=== PATIENT | female | born 1935 | race Caucasian/White ===

== ENCOUNTER 2019-11-20 00:44 | Outpatient (CLI) | payer MEDICARE, SELFPAY ==
[2019-11-20 18:12] LABS: SARS-CoV-2 RNA PCR Negative
== END 2019-11-20 00:45 | disposition home or self-care (01) ==
LOC: ANHCOVIDDT 00:45
PROVIDERS: PCP Internal Medicine; Visit Provider Internal Medicine Gastroenterology
DX: Z20.828 Contact with and (suspected) exposure to other viral communicable diseases (principal); Z01.812 Encounter for preprocedural laboratory examination
CPT/HCPCS: 87635; C9803; U0003

== ENCOUNTER 2019-11-22 01:46 | Day surgery (SDC) | payer MEDICARE, SELFPAY ==
[2019-11-19 14:08] VITALS: BMI 31.8
[2019-11-22 07:42] VITALS: BP 128/92; PULSE 97; RESP 16; TEMP 36.3; O2SAT 100
--- NOTE | 2019-11-22 07:59 | P.HP_ITS ---
History of Present Illness History of Present Illness Consent: Risks, benefits, and alternatives have been discussed and questions answered. Patient agrees to proceed with procedure. Chief complaint: Neoplasm Screening Narrative: Nelia Peterson is a 84 year old W female referred for colonoscopy for evaluation of a change in bowel pattern. Patient states she has had a 3 month history of diarrhea. 3-4 loose stools per day usually postprandial. This started while she was in [place]. She denies any exposure to well water. 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 She has had occasional episode of hematochezia. She does have hemorrhoids. No weight loss. No fever chills or sweats. She states she had stool studies done and assumes these are negative since she has not hear anything. She was not treated with any antibiotics. Patient had a colonoscopy 15 years ago. [facility] Past Medical History Medical History (Updated 11/22/19 @ 08:01 by Lenin Billingsley MD) Dyslipidemia History of atrial fibrillation History of kidney stones History of pulmonary embolism Hypertension Surgical History Surgical History (Updated 11/22/19 @ 08:02 by Lenin Billingsley MD) H/O total hysterectomy with bilateral salpingo-oophorectomy (BSO) History of tonsillectomy and adenoidectomy Status post right knee replacement Meds Home Medications and Allergies Home Medications Medication Instructions Recorded Confirmed Type amlodipine 5 mg PO DAILY 11/19/19 11/22/19 History apixaban [Eliquis] 5 mg PO BID 11/19/19 11/22/19 History ascorbic acid (vitamin C) 250 mg PO BID 11/19/19 11/22/19 History bupropion HCl 150 mg PO BID 11/19/19 11/22/19 History cholecalciferol (vitamin D3) 50 mcg PO DAILY 11/19/19 11/22/19 History [Vitamin D3] levothyroxine 50 mcg PO DAILY 11/19/19 11/22/19 History losartan 100 mg PO DAILY 11/19/19 11/22/19 History metoprolol tartrate 25 mg PO BID 11/19/19 11/22/19 History pravastatin 80 mg PO DAILY 11/19/19 11/22/19 History suvorexant [Belsomra] 10 mg PO HS 11/19/19 11/22/19 History amiodarone 200 mg PO DAILY 11/22/19 11/22/19 History Allergies Allergy/AdvReac Type Severity Reaction Status Date / Time enoxaparin Allergy Severe Other Verified 11/22/19 07:46 heparin Allergy Severe Other Verified 11/22/19 07:46 codeine AdvReac Mild Nausea Verified 11/22/19 07:46 Vital Signs Vital Signs - 24 hr 11/22/19 07:42 Temperature 36.3 C L Pulse Rate 97 Respiratory Rate 16 Blood Pressure 128/92 H Pulse Oximetry 100 Exam Const: Orientation/consciousness: patient oriented x3 Resp: Auscultation: clear to auscultation bilaterally Cardio: Rate: regular rate Rhythm: regular rhythm Heart sounds: no murmurs GI: GI Palp: Yes Soft to palpation, No Tenderness to palpation present (GI), Yes No hepatosplenomegaly present and No Palpable mass present Auscultation: normal bowel sounds Neuro: General: patient oriented x3 and no focal motor deficits Extrem: General: no pedal edema Assessment and Plan Additional Plan colonoscopy for evaluation of chronic diarrhea
[2019-11-22] MEDS: LACTATED RINGERS 1,000 ML 150 ML IV CONT (08:06)
--- NOTE | 2019-11-22 08:14 | WPDANESEPPF ---
Anes - Initial Pre Proc Eval Procedure: Operation Date: 11/22/19 08:30 Proposed Procedures p Screening Colonoscopy - Lenin Billingsley MD Date/Time: 11/22/19 08:14 Surgeon: Lenin Billingsley MD Pre Op Diagnosis: Neoplasm Screening Patient Data Age: 84 Gender: F Height: 5 ft 4 in Weight: 80.1 kg Last Vital Signs Temp 97.3 F L 11/22/19 07:42 Pulse 97 11/22/19 07:42 Resp 16 11/22/19 07:42 BP 128/92 H 11/22/19 07:42 Pulse Ox 100 11/22/19 07:42 Allergies Allergy/AdvReac Type Severity Reaction Status Date / Time enoxaparin Allergy Severe Other Verified 11/22/19 07:46 heparin Allergy Severe Other Verified 11/22/19 07:46 codeine AdvReac Mild Nausea Verified 11/22/19 07:46 Home Medications Medication Instructions Recorded Confirmed Type amlodipine 5 mg PO DAILY 11/19/19 11/22/19 History apixaban [Eliquis] 5 mg PO BID 11/19/19 11/22/19 History ascorbic acid (vitamin C) 250 mg PO BID 11/19/19 11/22/19 History bupropion HCl 150 mg PO BID 11/19/19 11/22/19 History cholecalciferol (vitamin D3) 50 mcg PO DAILY 11/19/19 11/22/19 History [Vitamin D3] levothyroxine 50 mcg PO DAILY 11/19/19 11/22/19 History losartan 100 mg PO DAILY 11/19/19 11/22/19 History metoprolol tartrate 25 mg PO BID 11/19/19 11/22/19 History pravastatin 80 mg PO DAILY 11/19/19 11/22/19 History suvorexant [Belsomra] 10 mg PO HS 11/19/19 11/22/19 History amiodarone 200 mg PO DAILY 11/22/19 11/22/19 History Patient hx anesthesia problems: none Family hx anesthesia problems: none PMFSH Past Medical History Medical History (Updated 11/22/19 @ 08:01 by Lenin Billingsley MD) Dyslipidemia History of atrial fibrillation History of kidney stones History of pulmonary embolism Hypertension Surgical History Surgical History (Updated 11/22/19 @ 08:02 by Lenin Billingsley MD) H/O total hysterectomy with bilateral salpingo-oophorectomy (BSO) History of tonsillectomy and adenoidectomy Status post right knee replacement Anes - Eval Final PreProcedure Day of Procedure 11/22/19 08:14 Patient weight: normal Heart: regular rate and rhythm Lungs: clear to auscultation Airway: Mallampati scale class II Neurological: alert and oriented Last oral intake: >/= 8 hours ASA classification: III Emergent: no Anesthetic plan: proceed Anesthesia type and monitoring: general GIVS and standard monitoring Informed Consent: The patient's anesthetic plan and its attendant risks and benefits were discussed with the patient/family/POA. Questions were solicited and answers provided to the satisfaction of the patient/family/POA.
[2019-11-22 10:11] VITALS: BP 115/64; BP 123/88; PULSE 108; RESP 24; O2SAT 97
[2019-11-22 10:21] VITALS: BP 128/88; PULSE 104; RESP 24; O2SAT 95
[2019-11-22 10:31] VITALS: BP 130/66; PULSE 77; RESP 14; O2SAT 98
== END 2019-11-22 10:50 | disposition home or self-care (01) ==
PROVIDERS: PCP Internal Medicine; Visit Provider Internal Medicine Gastroenterology
PROC: 0DJD8ZZ Inspection of Lower Intestinal Tract, Via Natural or Artificial Opening Endoscopic (ICD-10-PCS; CPT 45378; principal; 2019-11-22 08:30)
DX: K52.9 Noninfective gastroenteritis and colitis, unspecified (principal); K63.5 Polyp of colon; K64.4 Residual hemorrhoidal skin tags; K64.8 Other hemorrhoids; I48.91 Unspecified atrial fibrillation; E78.5 Hyperlipidemia, unspecified; I10 Essential (primary) hypertension; Z86.711 Personal history of pulmonary embolism; Z79.01 Long term (current) use of anticoagulants
CPT/HCPCS: 45385; 45380; 88305; J2704; J7120

== ENCOUNTER 2020-01-18 16:41 | Emergency (ER) | payer MEDICARE, SELFPAY ==
[2020-01-18 16:55] VITALS: BP 125/76; PULSE 95; RESP 18; TEMP 36.7; O2SAT 99
--- NOTE | 2020-01-18 17:52 | ED.GENADULT ---
HPI - General Adult General Chief complaint: Extremity Injury, Upper Stated complaint: right arm redness and swelling Time Seen by Provider: 01/18/20 16:59 Source: patient and family Mode of arrival: ambulatory Limitations: no limitations History of Present Illness HPI narrative: Patient is a 84-year-old female who presents to emergency department for evaluation of wound to the dorsal surface of the right forearm patient bumped the arm 2 days ago developed a small skin tear and some swelling and notes that the swelling is gradually increased since noting aching pain worse with activity and movement denies fever chills radicular symptoms or paresthesias in his Related Data Home Medications Medication Instructions Recorded Confirmed Belsomra 10 mg PO HS 11/19/19 11/22/19 amlodipine 5 mg PO DAILY 11/19/19 11/22/19 ascorbic acid (vitamin C) 250 mg PO BID 11/19/19 11/22/19 bupropion HCl 150 mg PO BID 11/19/19 11/22/19 cholecalciferol (vitamin D3) 50 mcg PO DAILY 11/19/19 11/22/19 [Vitamin D3] levothyroxine 50 mcg PO DAILY 11/19/19 11/22/19 losartan 100 mg PO DAILY 11/19/19 11/22/19 metoprolol tartrate 25 mg PO BID 11/19/19 11/22/19 pravastatin 80 mg PO DAILY 11/19/19 11/22/19 amiodarone 200 mg PO DAILY 11/22/19 11/22/19 Allergies Allergy/AdvReac Type Severity Reaction Status Date / Time enoxaparin Allergy Severe Other Verified 01/18/20 16:58 heparin Allergy Severe Other Verified 01/18/20 16:58 codeine AdvReac Mild Nausea Verified 01/18/20 16:58 Review of Systems Review of Systems: All systems reviewed & are unremarkable except as noted in HPI and below PMFSH Past Medical History Medical History Dyslipidemia History of atrial fibrillation History of kidney stones History of pulmonary embolism Hypertension Surgical History Surgical History H/O total hysterectomy with bilateral salpingo-oophorectomy (BSO) History of tonsillectomy and adenoidectomy Status post right knee replacement Social History Social History Gender identity (if verbalized by the patient): Male Exam Narrative: Exam Narrative: GENERAL: Well-appearing, well-nourished, and in no acute distress. HEAD: Normocephalic, atraumatic. EYES: PERRLA and EOMI. ENT: Nares clear, no rhinorrhea or epistaxis. Mucous membranes moist. EXTREMITIES: Normal range of motion. No edema. Patient with swelling tenderness over the distal right forearm dorsal surface slight redness no warmth to touch no drainage small half centimeter skin tear no lymphangitic streaking no circumferential swelling SKIN: Warm, dry, no rash. NEURO: No focal deficits. Alert and oriented x3. Neurovascularly intact PSYCH: Normal mood and affect. Course Course Emergency Course: Patient in the room in no distress aware of case findings treatment plan and diagnosis agreeing to follow-up as directed Vital Signs Vital signs: Vital Signs Temperature 98.0 F 01/18/20 16:55 Pulse Rate 95 01/18/20 16:55 Respiratory Rate 18 01/18/20 16:55 Blood Pressure 125/76 01/18/20 16:55 Pulse Oximetry 99 01/18/20 16:55 Temperature 98.0 F 01/18/20 16:55 Pulse Rate 95 01/18/20 16:55 Respiratory Rate 18 01/18/20 16:55 Blood Pressure 125/76 01/18/20 16:55 Pulse Oximetry 99 01/18/20 16:55 Medical Decision Making MDM Narrative Medical decision making narrative: Patients injury or pain is consistent with musculoskeletal etiology. No signs of neurological or vascular compromise on exam. Compartments and tisues are soft without signs of compartment syndrome. Pain is felt appropriate for further evaluation on an outpatient basis. Will be treated with antibiotics Vital Signs Vital Signs: Vital Signs Temperature 98.0 F 01/18/20 16:55 Pulse Rate 95 01/18/20 16:55 Respiratory Rate 18 01/18/20 16:55
[2020-01-18] MEDS: TETANUS,DIPHTHERIA,AC PERTUSSIS ADULT (0.5 ML) BOOSTRIX IM (18:11)
[2020-01-18 19:16] VITALS: BP 139/84; PULSE 74; RESP 18; O2SAT 98
== END 2020-01-18 19:17 | disposition home or self-care (01) ==
LOC: ANHED 18:01
PROVIDERS: Emergency Provider Emergency Medicine; PCP Internal Medicine
DX: L03.113 Cellulitis of right upper limb (principal); E78.5 Hyperlipidemia, unspecified; I48.91 Unspecified atrial fibrillation; Z87.442 Personal history of urinary calculi; Z86.711 Personal history of pulmonary embolism; I10 Essential (primary) hypertension; Z96.651 Presence of right artificial knee joint; Z23 Encounter for immunization
CPT/HCPCS: 90471; 90715; 99283

== ENCOUNTER 2020-01-19 00:55 | Inpatient (IN) | payer MEDICARE, SELFPAY ==
[2020-01-19] VITALS (19 sets, daily range): BP systolic 91–148; BP diastolic 50–88; PULSE 75–121; RESP 16–18; TEMP 36.1–37.5; O2SAT 94–100
--- NOTE | ~2020-01-19 | CT_ITS ---
EXAMINATION: CT brain wo con DATE: 01/19/2020 02:23 INDICATION: Dizziness. Fall. TECHNIQUE: Computed tomography (CT) of the head was performed without intravenous contrast. The mA wa s adjusted according to patient size. Iterative reconstruction technique was employed. The dose-lengt h product was 605.33 mGy-cm. COMPARISON: Head CT 12/11/2014 FINDINGS: There are scattered areas of low attenuation in the cerebral white matter, which is within normal limits for the patient's age. There is no intracranial hemorrhage, acute infarction, or abnorm al intracranial mass lesion. 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 The enrique tricles are normal in size. There is mucosal thickening in right sphenoid sinus with thickening and s clerosis of the sinus barber, consistent with chronic sinusitis. The mastoid air cells are normal. The re are likely changes of ocular lens replacement surgeries. IMPRESSION: 1. Normal aging brain. 2. Chronic sinusitis. Reviewed, dictated and finalized at location A.
--- NOTE | 2020-01-19 01:10 | ED.FALL ---
HPI - Fall General Chief Complaint: Fall Stated Complaint: fall/ weakness/ nausea/ arm infection Time Seen by Provider: 01/19/20 01:09 Source: patient, family and EMS Mode of arrival: EMS Limitations: no limitations History of Present Illness HPI Narrative: Patient is an 84-year-old female with a history of hypertension, recently diagnosed with cellulitis of the right upper extremity seen today in her emergency department, who presents for evaluation of inability to tolerate oral intake, vomiting and weakness. Patient states that she has tried twice without success to swallow her oral antibiotic but has continued to vomit. She denies any abdominal pain or chest pain. She reports subjective fever, chills and feeling diffusely weak. She denies cough or shortness of breath. She denies any chest pain. Patient states it seems as if the right arm is aching more and swelling has worsened. Patient had been discharged home on oral Keflex, her tetanus has been updated in the ER with the previous visit. Her , patient has been so weak she has had difficulty standing. In fact, she tried to get up from bed and fell to the floor. Patient is denying any injury, states she did experience a skin tear to her left elbow but is denying any elbow pain. She denies head trauma or loss of consciousness. Patient's states he feels like she has been leaning over to the right. Patient is denying any weakness or numbness that is focal to the right side. Related Data Home Medications Medication Instructions Recorded Confirmed Belsomra 10 mg PO HS 11/19/19 11/22/19 amlodipine 5 mg PO DAILY 11/19/19 11/22/19 ascorbic acid (vitamin C) 250 mg PO BID 11/19/19 11/22/19 bupropion HCl 150 mg PO BID 11/19/19 11/22/19 cholecalciferol (vitamin D3) 50 mcg PO DAILY 11/19/19 11/22/19 [Vitamin D3] levothyroxine 50 mcg PO DAILY 11/19/19 11/22/19 losartan 100 mg PO DAILY 11/19/19 11/22/19 metoprolol tartrate 25 mg PO BID 11/19/19 11/22/19 pravastatin 80 mg PO DAILY 11/19/19 11/22/19 amiodarone 200 mg PO DAILY 11/22/19 11/22/19 Allergies Allergy/AdvReac Type Severity Reaction Status Date / Time enoxaparin Allergy Severe Other Verified 01/18/20 16:58 heparin Allergy Severe Other Verified 01/18/20 16:58 codeine AdvReac Mild Nausea Verified 01/18/20 16:58 Review of Systems Review of Systems: Narrative: CONSTITUTIONAL: Subjective fever and chills EYES: Denies visual changes, redness, or discharge. ENT: Denies rhinorrhea, congestion, sore throat, or otalgia. CARDIOVASCULAR: Denies chest pain, palpitations, or edema. RESPIRATORY: Denies cough or dyspnea. GASTROINTESTINAL: Denies abdominal pain, nausea and vomiting GENITOURINARY: Denies dysuria or hematuria. SKIN: Denies rash or itching. MUSCULOSKELETAL: Denies back pain, joint pain, or myalgia. NEUROLOGIC: Denies headache, numbness, reports feeling diffusely weak PMFSH Past Medical History Medical History Dyslipidemia History of atrial fibrillation History of kidney stones History of pulmonary embolism Hypertension Surgical History Surgical History H/O total hysterectomy with bilateral salpingo-oophorectomy (BSO) History of tonsillectomy and adenoidectomy Status post right knee replacement Social History Social History Gender identity (if verbalized by the patient): Male Exam Narrative: Exam Narrative: GENERAL: Awake, alert, conversant HEAD: Normocephalic, atraumatic. EYES: 2+ PERRLA and EOMI. ENT: Nares clear, no rhinorrhea or epistaxis. Mucous membranes dry NECK: Supple. CHEST: No respiratory distress, breathing even and non labored HEART: Tachycardic rate, atrial fibrillation with RVR, irregular rate ABDOMEN:Non distended, non tender EXTREMITIES: Skin tear to left elbow. Full range of motion of the left elbow without pain.
--- NOTE | 2020-01-19 01:14 | ECG_ITS ---
Measurements Intervals [place] Rate: 112 P: [place]: 0 QRS: -1 QRSD: 97 T: -1 QT: 327 QTc: 447 Interpretive Statements ATRIAL FIBRILLATION WITH RAPID VENTRICULAR RESPONSE INCOMPLETE RIGHT BUNDLE BRANCH BLOCK ANTEROSEPTAL INFARCT, AGE INDETERMINATE ABNORMAL ECG Electronically Signed On 01-19-2020 7:44:22 CDT by Dylon Kumari D.O.
[2020-01-19] MEDS: SODIUM CHLORIDE 0.9% IV 1,000 ML 999 ML IV CONT (02:26)
[2020-01-19] MEDS: ONDANSETRON INJ 4 MG/2 ML VIAL IV PUSH (02:26)
[2020-01-19 04:00] LABS: Basophils Percent Auto 0.2 % (0.2-1.2); Hematocrit 42.6 % (37.0-47.0); Hemoglobin 14.3 g/dL (12.0-15.0); Immature Granulocyte Absolute 0.14 K/mm3 (0.00-0.031); Lymphocytes Absolute Auto 0.62 K/mm3 (0.9-3.2); Lymphocytes Percent Auto 4.4 % (18.3-44.2); Mean Corpuscular HGB Conc 33.6 g/dl (32-36); Mean Corpuscular Hemoglobin 31.1 pg (26-34); Mean Corpuscular Volume 92.6 fl (80-100); Mean Platelet Volume 10.8 fl (7.4-10.4); Monocytes Absolute Auto 0.9 K/mm3 (0.1-0.6); Monocytes Percent Auto 6.2 % (2.6-8.5); Neutrophils Absolute Auto 12.5 K/mm3 (1.3-6.7); Neutrophils Percent Auto 88.2 % (45.5-73.1); Platelet Count Result 127 k/mm3 (150-375); Red Cell Distribution Width 14.8 % (11.5-14.5); White Blood Count 14.1 K/mm3 (4.5-10.0)
[2020-01-19 04:12] LABS: Lactic Acid Reflex 1.5 mmol/L (0.7-2.1); Partial Thromboplastin Time 27.7 SECONDS (22.3-36.8); Prothrombin Time 13.1 Seconds (11.1-14.7)
[2020-01-19 04:17] LABS: Alanine Aminotransferase 15 U/L (4-35); Albumin Level 3.8 g/dL (3.5-5.1); Alkaline Phosphatase 75 U/L (38-126); Anion Gap 8 mmol/L (8-16); Aspartate Amino Transferase 24 U/L (14-36); Bilirubin,Total 0.7 mg/dL (0.2-1.3); Blood Urea Nitrogen 25 mg/dL (7-17); Calcium 9.3 mg/dL (8.4-10.2); Carbon Dioxide 24 mmol/L (22-30); Chloride 102 mmol/L (98-107); Estimated CRCL calculation 36 ml/min; Estimated Glomerular Filt Rate 47; Glucose 80 mg/dL (65-105); Lipase 49 U/L (23-300); Sodium 134 mmol/L (137-145)
[2020-01-19 04:25] LABS: Troponin I < 0.012 ng/mL (0.000-0.034)
[2020-01-19] MEDS: AMIODARONE 150 MG/D5W 100 ML 150 MG/100 ML BAG 600 MG IV CONT (05:30)
[2020-01-19] MEDS: AMIODARONE 360 MG/D5W 200 ML 360 MG/200 ML BAG 33.3 MG IV CONT (05:52)
--- NOTE | 2020-01-19 06:38 | ADMGEN ---
This patient, Nelia Peterson, was admitted to IMU Room 214-01 on 01/19/20 at 0624. Patient/family oriented to hospital policies and general routines including ID bracelet, bed and alarms, visiting hours, pain management, procedures, bathroom and other care routines, personal items, smoking policy, room service/diet, and visiting hours. Valuables list has been completed. Information on how to activate the Rapid Response Team has been discussed. Patient/Family are encouraged to report perceived risks to care and to ask questions if they do not understand what they are told or what they should do.
--- NOTE | 2020-01-19 09:51 | PM.IMHP ---
H&P: HPI History of Present Illness Date/Time: 01/19/20 09:51 Chief complaint: Right arm cellulitis, a fib with rvr Narrative: date of visit 01/18 930 Nelia Peterson is a 84 year old female with chronic AFib and hypertension presented to the emergency room with nausea vomiting weakness with falling after treatment for cellulitis of her right arm. She is in the ER on 01/17 early with symptoms of cellulitis after abrasion of right forarm. She is treated and released but once home started developing nausea and vomiting and unable to keep her antibiotics down. She fell when she got up to go to the bathroom without loss of consciousness and her called EMS and brought her to the emergency room. After IV fluids, antibiotics she states she feels some better. She has been having problems with nausea for quite some time but eliminating her sleeping aid has been doing better until the present illness. in November diagnosis with nonspecific colitis and has been on tapering dose of steroid since then also. no history of peptic disease or dysphagia. On chronic anticoagulation with past history of pulmonary emboli and chronic AFib Review of Systems Review of Systems: Narrative: constitutional weight has been steady appetite okay to the present illness and no fever chills Eye no double vision or scotoma mouth no pharyngitis laryngitis pulmonary no shortness of breath wheezing or cough CV history of AFib but no history of coronary disease. 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 [facility] Past Medical History Medical History (Updated 01/19/20 @ 10:03 by Wade Campbell MD) Dyslipidemia History of atrial fibrillation History of kidney stones History of pulmonary embolism Hypertension Nonspecific colitis Surgical History Surgical History (Updated 01/19/20 @ 10:03 by Wade Campbell MD) H/O total hysterectomy with bilateral salpingo-oophorectomy (BSO) History of tonsillectomy and adenoidectomy S/P coil embolization of cerebral aneurysm Status post right knee replacement Family History Family History (Updated 01/19/20 @ 10:04 by Wade Campbell MD) Mother , in her 70s Hypertension Father Hypertension Acute myocardial infarction Social History Social History (Updated 01/19/20 @ 10:05 by Wade Campbell MD) Social History: lives with her Smoking packs per day: 0.5 Smoking cigarettes per day: 10.0 Years smoked: 5 Smoking pack-years: 2.50 Smoking status: Former smoker Tobacco type: cigarettes Alcohol intake: current Drinks per week: 4 Substance use: never Substance use type: does not use Gender identity (if verbalized by the patient): Female Sexual Orientation (if Verbalized by the Patient): Straight or Heterosexual Spiritual care concerns: No Meds Home Medications and Allergies Home Medications Medication Instructions Recorded Confirmed Type Belsomra 10 mg PO HS 11/19/19 01/19/20 History amlodipine 5 mg PO DAILY 11/19/19 01/19/20 History ascorbic acid (vitamin C) 250 mg PO BID 11/19/19 01/19/20 History bupropion HCl 150 mg PO BID 11/19/19 01/19/20 History cholecalciferol (vitamin D3) 50 mcg PO DAILY 11/19/19 01/19/20 History [Vitamin D3] levothyroxine 50 mcg PO DAILY 11/19/19 01/19/20 History losartan 100 mg PO DAILY 11/19/19 01/19/20 History metoprolol tartrate 25 mg PO BID 11/19/19 01/19/20 History pravastatin 80 mg PO DAILY 11/19/19 01/19/20 History amiodarone 200 mg PO DAILY 11/22/19 01/19/20 History cephalexi
[2020-01-19] MEDS: SODIUM CHLORIDE 0.9% IV 1,000 ML 100 ML IV CONT ×2 (10:10→20:26)
[2020-01-19] MEDS: LEVOTHYROXINE SODIUM 50 MCG TABLET PO (10:34)
[2020-01-19] MEDS: MUPIROCIN 2% OINT 22 GM TUBE 1 APPLIC TOPICAL ×3 (10:34→16:14)
[2020-01-19] MEDS: BUDESONIDE 3 MG CAP.SR.24H 6 MG PO (10:34)
[2020-01-19] MEDS: METOPROLOL TARTRATE 25 MG TABLET PO ×2 (10:35→20:28)
[2020-01-19] MEDS: APIXABAN 5 MG TABLET PO ×2 (10:35→16:15)
[2020-01-19] MEDS: AMIODARONE 360 MG/D5W 200 ML 360 MG/200 ML BAG 16.7 MG IV CONT ×2 (11:30→22:16)
[2020-01-19 12:11] LABS: Glucose Point of Care 96 (65-105)
[2020-01-19] MEDS: ACETAMINOPHEN 325 MG TABLET 650 MG PO ×2 (13:04→22:26)
[2020-01-19] MEDS: ASCORBIC ACID 250 MG TABLET PO (16:15)
[2020-01-19 16:23] LABS: Glucose Point of Care 90 (65-105)
[2020-01-20] VITALS (16 sets, daily range): BP systolic 90–136; BP diastolic 55–78; PULSE 75–94; RESP 18; TEMP 36.2–36.5; O2SAT 95–100
[2020-01-20 04:52] LABS: Basophils Percent Auto 0.2 % (0.2-1.2); Eosinophils Percent Auto 0.4 % (0-4.4); Hematocrit 35.1 % (37.0-47.0); Hemoglobin 11.6 g/dL (12.0-15.0); Immature Granulocyte Absolute 0.04 K/mm3 (0.00-0.031); Immature Granulocyte Percent A 0.5 % (0-0.5); Lymphocytes Absolute Auto 1.03 K/mm3 (0.9-3.2); Lymphocytes Percent Auto 12.1 % (18.3-44.2); Mean Corpuscular Hemoglobin 31.1 pg (26-34); Mean Corpuscular Volume 94.1 fl (80-100); Monocytes Absolute Auto 0.6 K/mm3 (0.1-0.6); Monocytes Percent Auto 6.7 % (2.6-8.5); Neutrophils Absolute Auto 6.8 K/mm3 (1.3-6.7); Neutrophils Percent Auto 80.1 % (45.5-73.1); Platelet Count Result 92 k/mm3 (150-375); Red Blood Count 3.73 M/mm3 (4.2-5.4); Red Cell Distribution Width 15.1 % (11.5-14.5); White Blood Count 8.5 K/mm3 (4.5-10.0)
[2020-01-20] MEDS: ACETAMINOPHEN 325 MG TABLET 650 MG PO ×3 (05:01→22:14)
[2020-01-20] MEDS: LEVOTHYROXINE SODIUM 50 MCG TABLET PO (05:02)
[2020-01-20 05:04] LABS: Anion Gap 5 mmol/L (8-16); Blood Urea Nitrogen 18 mg/dL (7-17); Calcium 8.3 mg/dL (8.4-10.2); Carbon Dioxide 22 mmol/L (22-30); Chloride 110 mmol/L (98-107); Estimated CRCL calculation 37 ml/min; Estimated Glomerular Filt Rate 47; Glucose 87 mg/dL (65-105); Potassium 3.6 mmol/L (3.4-5.0); Sodium 137 mmol/L (137-145)
[2020-01-20] MEDS: SODIUM CHLORIDE 0.9% IV 1,000 ML 100 ML IV CONT (06:06)
[2020-01-20] MEDS: BUDESONIDE 3 MG CAP.SR.24H 6 MG PO (08:14)
[2020-01-20] MEDS: METOPROLOL TARTRATE 25 MG TABLET PO ×2 (08:14→21:00)
[2020-01-20] MEDS: ASCORBIC ACID 250 MG TABLET PO ×2 (08:14→17:33)
[2020-01-20] MEDS: PRAVASTATIN SODIUM 20 MG TABLET 80 MG PO (08:14)
[2020-01-20] MEDS: APIXABAN 5 MG TABLET PO ×2 (08:14→17:33)
[2020-01-20] MEDS: MUPIROCIN 2% OINT 22 GM TUBE 1 APPLIC TOPICAL ×3 (08:15→17:33)
[2020-01-20] MEDS: CHOLECALCIFEROL 1,000 UNITS TABLET 2000 UNITS PO (08:15)
[2020-01-20] MEDS: AMIODARONE HCL 200 MG TABLET PO (08:57)
--- NOTE | 2020-01-20 17:58 | PM.IMPN ---
Progress Note: A&P Assessment and Plan (1) Sepsis: Code(s): A41.9 - Sepsis, unspecified organism Status: Acute Assessment and Plan: as per criteria with tachycardia and leukocytosis Secondary to cellulitis. continue IV antibiotics and broaden coverage with zosyn and vanc. BC so far negative received 1 L in the ER and lactic acid was normal and will d/c IV fluids later today (2) Cellulitis of arm, right: Code(s): L03.113 - Cellulitis of right upper limb Status: Acute Assessment and Plan: right arm cellulitis. Local care and IV antibiotics and change to zosyn and vanc since arm looks worse today. blood cultures so far negative (3) Atrial fibrillation with rapid ventricular response: Code(s): I48.91 - Unspecified atrial fibrillation Status: Acute Assessment and Plan: chronic AFib which she is not symptomatic with. Suspect the rapid responses secondary to sepsis and dehydration which has slowed so continue beta-bryan and Eliquis with po amiodarone (4) Hypertension: Code(s): I10 - Essential (primary) hypertension Status: Acute Assessment and Plan: blood pressure toward the low side. Holding amlodipine and losartan. Continue low-dose beta-bryan with her AFib (5) Nonspecific colitis: Code(s): K52.9 - Noninfective gastroenteritis and colitis, unspecified Status: Acute Assessment and Plan: continue steroid. If pressure remains low then increased steroid for short-term Subjective Date/time seen: 01/20/20 17:58 Interval history: date of visit 01/19. 84-year-old hypertensive white female with chronic atrial fibrillation admitted with sepsis and cellulitis of right arm. He feels better today after hydration but the arm is more red and swollen. No fever no chills. no further nausea or vomiting Exam Narrative: Exam Narrative: blood pressure 116/64 pulse is 72 irregular saturating 96% on room air afebrile pupils equal reactive light sclera anicteric mouth normal neck is supple lungs clear CV irregular systolic murmur lower left sternal border abdomen soft nontender no masses extremities without edema dorsalis pedis posterior tibial 2+ integument: right forearm erythematous from wrist to antecubital fossa, with 2 small open areas less than 1 cm. warm tender to touch left elbow abrasion with skin tear nontender and clean neuro alert oriented x4 no focal deficits with cranial nerves 2-12 are intact Objective Data Vital Signs Vital Signs: Vital Signs - 24 hr 01/19/20 18:00 01/19/20 19:34 01/19/20 20:00 Temperature 36.6 C Pulse Rate 93 96 96 Respiratory Rate 16 Blood Pressure 104/63 104/63 Pulse Oximetry 100 01/19/20 20:28 01/19/20 22:00 01/19/20 22:16 Temperature Pulse Rate 90 84 86 Respiratory Rate Blood Pressure Pulse Oximetry 01/19/20 23:40 01/20/20 00:00 01/20/20 02:00 Temperature 36.5 C Pulse Rate 88 88 82 Respiratory Rate 18 18 Blood Pressure 113/55 L 113/55 L Pulse Oximetry 97 97 01/20/20 03:53 01/20/20 04:00 01/20/20 05:00 Temperature 36.5 C Pulse Rate 89 89 89 Respiratory Rate 18 18 Blood Pressure 118/60 118/60 Pulse Oximetry 95 95 01/20/20 06:00 01/20/20 08:00 01/20/20 08:14 Temperature 36.4 C L Pulse Rate 87 84 78 Respiratory Rate 18 Blood Pressure 126/73 Pulse Oximetry 100 01/20/20 08:57 01/20/20 09:01 01/20/20 09:53 Temperature Pulse Rate 84 84 87 Respiratory Rate Blood Pressure Pulse Oximetry 01/20/20 12:00 01/20/20 14:00 01/20/20 16:00 Temperature 36.2 C L 36.4 C L Pulse Rate 81 86 94 Respiratory Rate 18 18 Blood Pressure 117/64 90/69 L Pulse Oximetry 100 100 Intake/Output Intake/Output: Intake & Output 01/17/20 01/18/20 01/19/20 01/20/20 23:59 23:59 23:59 23:59 Intake Total 4290 4026 Output Total 800 1000 Balance 3490 3026 Meds/Results Medications: Active Medicati
--- NOTE | 2020-01-20 18:03 | PC.NURSE ---
This patient, Nelia Peterson, was received from [facility] on 01/20/20 at 1803. Personal belongings list checked and signed. Patient/family oriented to unit policies and routines
[2020-01-21] VITALS (8 sets, daily range): BP systolic 142–156; BP diastolic 63–91; PULSE 72–99; RESP 18; TEMP 36–36.7; O2SAT 96–100
[2020-01-21] MEDS: LEVOTHYROXINE SODIUM 50 MCG TABLET PO (05:35)
[2020-01-21 07:14] LABS: Basophils Percent Auto 0.3 % (0.2-1.2); Eosinophils Absolute Auto 0.1 K/mm3 (0-0.3); Eosinophils Percent Auto 0.9 % (0-4.4); Hematocrit 36.6 % (37.0-47.0); Hemoglobin 11.8 g/dL (12.0-15.0); Immature Granulocyte Absolute 0.03 K/mm3 (0.00-0.031); Immature Granulocyte Percent A 0.5 % (0-0.5); Lymphocytes Absolute Auto 0.85 K/mm3 (0.9-3.2); Lymphocytes Percent Auto 13.4 % (18.3-44.2); Mean Corpuscular HGB Conc 32.2 g/dl (32-36); Mean Corpuscular Hemoglobin 30.6 pg (26-34); Mean Corpuscular Volume 94.8 fl (80-100); Mean Platelet Volume 9.8 fl (7.4-10.4); Monocytes Absolute Auto 0.4 K/mm3 (0.1-0.6); Monocytes Percent Auto 5.5 % (2.6-8.5); Neutrophils Percent Auto 79.4 % (45.5-73.1); Platelet Count Result 101 k/mm3 (150-375); Red Blood Count 3.86 M/mm3 (4.2-5.4); Red Cell Distribution Width 14.8 % (11.5-14.5); White Blood Count 6.4 K/mm3 (4.5-10.0)
[2020-01-21 07:38] LABS: Anion Gap 6 mmol/L (8-16); Blood Urea Nitrogen 15 mg/dL (7-17); Calcium 8.4 mg/dL (8.4-10.2); Carbon Dioxide 25 mmol/L (22-30); Chloride 107 mmol/L (98-107); Estimated CRCL calculation 39 ml/min; Estimated Glomerular Filt Rate 53; Glucose 81 mg/dL (65-105); Potassium 3.9 mmol/L (3.4-5.0); Sodium 138 mmol/L (137-145)
[2020-01-21] MEDS: CHOLECALCIFEROL 1,000 UNITS TABLET 2000 UNITS PO (08:29)
[2020-01-21] MEDS: AMIODARONE HCL 200 MG TABLET PO (08:30)
[2020-01-21] MEDS: BUDESONIDE 3 MG CAP.SR.24H 6 MG PO (08:32)
[2020-01-21] MEDS: PRAVASTATIN SODIUM 20 MG TABLET 80 MG PO (08:32)
[2020-01-21] MEDS: METOPROLOL TARTRATE 25 MG TABLET PO ×2 (08:32→20:41)
[2020-01-21] MEDS: MUPIROCIN 2% OINT 22 GM TUBE 1 APPLIC TOPICAL ×3 (08:33→17:30)
[2020-01-21] MEDS: ASCORBIC ACID 250 MG TABLET PO ×2 (08:33→17:30)
[2020-01-21] MEDS: APIXABAN 5 MG TABLET PO ×2 (08:33→17:31)
[2020-01-21] MEDS: amLODIPine BESYLATE 5 MG TABLET PO (09:08)
[2020-01-21] MEDS: polyethylene glycoL 3350 17 GM POWD.PACK PO (09:08)
--- NOTE | 2020-01-21 16:32 | PM.IMPN ---
Progress Note: A&P Assessment and Plan (1) Sepsis: Code(s): A41.9 - Sepsis, unspecified organism Status: Acute Assessment and Plan: as per criteria with tachycardia and leukocytosis Secondary to cellulitis. continue IV antibiotics and broadened coverage with zosyn and vanc. 01/19 BC so far negative received 1 L in the ER and lactic acid was normal creatiniine 1.0 today (2) Cellulitis of arm, right: Code(s): L03.113 - Cellulitis of right upper limb Status: Acute Assessment and Plan: right arm cellulitis. Local care and IV antibiotics and changed to zosyn and vanc 01/19 since arm looked worse . blood cultures so far negative. Today significant improvement and continue same (3) Atrial fibrillation with rapid ventricular response: Code(s): I48.91 - Unspecified atrial fibrillation Status: Acute Assessment and Plan: chronic AFib which she is not symptomatic with. Suspect the rapid V response on admission secondary to sepsis and dehydration which has slowed so continue beta-bryan and Eliquis with po amiodarone (4) Hypertension: Code(s): I10 - Essential (primary) hypertension Status: Acute Assessment and Plan: blood pressure toward the low side initially . rebounding so started amlodipine back today and losartan 01/21 (5) Nonspecific colitis: Code(s): K52.9 - Noninfective gastroenteritis and colitis, unspecified Status: Acute Assessment and Plan: continue steroid on taper per GI Subjective Date/time seen: 01/21/20 16:32 Interval history: date of visit 01/20. 84-year-old hypertensive white female with chronic atrial fibrillation admitted with sepsis and cellulitis of right arm. She feels better each day and arm less swollen today. No fever no chills. no further nausea or vomiting Exam Narrative: Exam Narrative: blood pressure 142/82(no orthostatic changes) pulse is 82 irregular saturating 96% on room air afebrile pupils equal reactive light sclera anicteric mouth normal neck is supple lungs clear CV irregular systolic murmur lower left sternal border abdomen soft nontender no masses extremities without edema dorsalis pedis posterior tibial 2+ integument: right forearm erythematous from wrist to antecubital fossa but less so with less edema, with 2 small open areas less than 1 cm. and less warm tender to touch left elbow abrasion with skin tear nontender and clean neuro alert oriented x4 no focal deficits with cranial nerves 2-12 are intact Objective Data Vital Signs Vital Signs: Vital Signs - 24 hr 01/20/20 20:00 01/20/20 21:00 01/21/20 00:00 Temperature 36.4 C 36.6 C Pulse Rate 92 92 99 Respiratory Rate 18 18 Blood Pressure 136/78 154/88 H Pulse Oximetry 99 99 01/21/20 04:00 01/21/20 08:30 01/21/20 08:32 Temperature 36.3 C L Pulse Rate 72 92 92 Respiratory Rate 18 Blood Pressure 145/91 H Pulse Oximetry 100 01/21/20 08:53 01/21/20 08:54 01/21/20 15:23 Temperature 36.0 C L Pulse Rate 99 Respiratory Rate 18 Blood Pressure 146/68 H 156/63 H 142/81 H Pulse Oximetry 96 Intake/Output Intake/Output: Intake & Output 01/18/20 01/19/20 01/20/20 01/21/20 23:59 23:59 23:59 23:59 Intake Total 4290 4076 780 Output Total 800 1000 300 Balance 3490 3076 480 Meds/Results Medications: Active Medications Generic Name Dose Route Start Last Admin Trade Name Freq PRN Reason Stop Dose Admin Acetaminophen 650 mg 01/19/20 12:43 01/20/20 22:14 Tylenol Tablet PO 650 mg Q6H PRN Administration Mild Pain (1-3) or Fever Amiodarone HCl 200 mg 01/20/20 08:00 01/21/20 08:30 Pacerone PO 200 mg DAILY@0800 RUY Administration Amlodipine Besylate 5 mg 01/21/20 09:00 01/21/20 09:08 Norvasc PO 5 mg DAILY RUY Administration Apixaban 5 mg 01/19/20 09:05 01/21/20 08:33 Eliquis PO 5 mg BID RUY Administration Ascorbic Acid 250
[2020-01-21] MEDS: ACETAMINOPHEN 325 MG TABLET 650 MG PO (23:29)
[2020-01-22] VITALS (10 sets, daily range): BP systolic 134–164; BP diastolic 55–82; PULSE 80–95; RESP 16–18; TEMP 36.1–37; O2SAT 99–100
[2020-01-22] MEDS: LEVOTHYROXINE SODIUM 50 MCG TABLET PO (05:53)
[2020-01-22] MEDS: ASCORBIC ACID 250 MG TABLET PO ×2 (09:35→16:43)
[2020-01-22] MEDS: METOPROLOL TARTRATE 25 MG TABLET PO ×2 (09:36→20:22)
[2020-01-22] MEDS: amLODIPine BESYLATE 5 MG TABLET PO (09:36)
[2020-01-22] MEDS: AMIODARONE HCL 200 MG TABLET PO (09:36)
[2020-01-22] MEDS: CHOLECALCIFEROL 1,000 UNITS TABLET 2000 UNITS PO (09:36)
[2020-01-22] MEDS: APIXABAN 5 MG TABLET PO ×2 (09:37→16:43)
[2020-01-22] MEDS: PRAVASTATIN SODIUM 20 MG TABLET 80 MG PO (09:37)
[2020-01-22] MEDS: MUPIROCIN 2% OINT 22 GM TUBE 1 APPLIC TOPICAL ×3 (09:37→16:42)
[2020-01-22] MEDS: LOSARTAN POTASSIUM 100 MG TABLET PO (09:37)
[2020-01-22] MEDS: BUDESONIDE 3 MG CAP.SR.24H 6 MG PO (09:37)
--- NOTE | 2020-01-22 14:10 | PM.IMPN ---
Progress Note: A&P Assessment and Plan (1) Sepsis: Qualifiers: Sepsis acute organ dysfunction status: without acute organ dysfunction Sepsis type: sepsis due to unspecified organism Qualified Code(s): A41.9 - Sepsis, unspecified organism Code(s): A41.9 - Sepsis, unspecified organism Status: Acute Assessment and Plan: as per criteria with tachycardia and leukocytosis Secondary to cellulitis. Broaden coverage with zosyn and vanc. 01/19 BC so far negative. Continue IV antibiotics (2) Cellulitis of arm, right: Code(s): L03.113 - Cellulitis of right upper limb Status: Acute Assessment and Plan: Right arm cellulitis related to open areas on the forearm. Was of Cafazolin but changed to zosyn and vanc 01/19 since arm looked worse. blood cultures so far negative. Arm continues to improve. Will deescalate abx. (3) Atrial fibrillation with rapid ventricular response: Code(s): I48.91 - Unspecified atrial fibrillation Status: Acute Assessment and Plan: Chronic AFib which she is not symptomatic with. Suspect the rapid ventricular response on admission secondary to sepsis and dehydration. Rate controlled - continue beta-bryan and po AMio. Continue Eliquis (4) Hypertension: Qualifiers: Hypertension type: essential hypertension Qualified Code(s): I10 - Essential (primary) hypertension Code(s): I10 - Essential (primary) hypertension Status: Acute Assessment and Plan: Patient's blood pressure was reviewed on 01/22/20 Blood pressure remains mostly well controlled. Will continue current medications. Amlodipine resumed 01/20 and losartan 01/21 (5) Nonspecific colitis: Code(s): K52.9 - Noninfective gastroenteritis and colitis, unspecified Status: Acute Assessment and Plan: continue steroid on taper per GI. Plan to wean dose on Tuesday. (6) Dizziness: Code(s): R42 - Dizziness and giddiness Status: Acute Assessment and Plan: Possible BPPV. Will have PT assess. Meclizine prn. Increase activity level. continue PT and OT. (7) DVT prophylaxis: Code(s): Z29.9 - Encounter for prophylactic measures, unspecified Status: Acute Assessment and Plan: Eliquis Subjective Date/time seen: 01/22/20 14:10 Interval history: Date of visit 01/21. 84-year-old female with HTN, chronic AFib admitted with sepsis and cellulitis of right arm. Arm is less painful. Dizzy when she stands or turns on her side. Feels lke room spinning. Has been having this for months. Not seen anyone for this. No further nausea. No CP, cough, SOB or diarrhea. Complains of left-sided neck pain and mild sore throat. The sore throat actually better today. Exam Narrative: Exam Narrative: AF 154/82 88 16 100% ra Gen - NARD lying semi recumbent in bed HEENT - for pharynx is poorly visualized but no overt erythema. Moist mucous Membranes. No oral lesions noted. Neck - mild tenderness noted to the left submandibular gland But was not enlarged.. Chest - CTA bilaterally, nml RR CV - irregularly irregular. S1-S2. Abd - Soft, NT/ND, Positive BS Ext - No pedal edema Psych - Nml mood and affect Skin - right forearm erythematous from wrist to antecubital fossa located more medially and still with mild edema. There are still 2 small open areas to the forearm. Left elbow abrasion healing normally Objective Data Vital Signs Vital Signs: Vital Signs - 24 hr 01/21/20 15:23 01/21/20 20:00 01/22/20 00:00 Temperature 96.8 F L 98.1 F 97.9 F Pulse Rate 99 90 84 Respiratory Rate 18 18 18 Blood Pressure 142/81 H 148/74 H 150/68 H Pulse Oximetry 96 100 100 01/22/20 04:00 01/22/20 08:00 01/22/20 09:36 Temperature 97.6 F 98.3 F Pulse Rate 89 82 80 Respiratory Rate 18 16 Blood Pressure 146/73 H 134/55 L Pulse Oximetry 100 100 01/22/20 12:00 Temperature 98.5
[2020-01-22] MEDS: MECLIZINE HCL 12.5 MG TABLET PO (16:42)
[2020-01-23 01:12] VITALS: BP 144/83; PULSE 105; RESP 16; TEMP 36.3; O2SAT 98
[2020-01-23 06:00] VITALS: BP 152/85; PULSE 84; RESP 14; TEMP 36.1; O2SAT 96
[2020-01-23] MEDS: LEVOTHYROXINE SODIUM 50 MCG TABLET PO (06:32)
[2020-01-23 08:46] VITALS: PULSE 90
[2020-01-23] MEDS: ASCORBIC ACID 250 MG TABLET PO (08:46)
[2020-01-23] MEDS: amLODIPine BESYLATE 5 MG TABLET PO (08:46)
[2020-01-23] MEDS: AMIODARONE HCL 200 MG TABLET PO (08:46)
[2020-01-23] MEDS: APIXABAN 5 MG TABLET PO (08:46)
[2020-01-23] MEDS: METOPROLOL TARTRATE 25 MG TABLET PO (08:46)
[2020-01-23] MEDS: LOSARTAN POTASSIUM 100 MG TABLET PO (08:46)
[2020-01-23] MEDS: PRAVASTATIN SODIUM 20 MG TABLET 80 MG PO (08:47)
[2020-01-23] MEDS: CHOLECALCIFEROL 1,000 UNITS TABLET 2000 UNITS PO (08:47)
[2020-01-23] MEDS: MUPIROCIN 2% OINT 22 GM TUBE 1 APPLIC TOPICAL ×2 (08:47→12:48)
[2020-01-23] MEDS: BUDESONIDE 3 MG CAP.SR.24H 6 MG PO (08:47)
--- NOTE | 2020-01-23 13:46 | PM.DS ---
DS: Admitting Diagnosis Admitting Diagnosis Admitting Diagnosis: Right arm cellulitis, a fib with rvr DS: Discharge Diagnosis Discharge Diagnosis (1) Sepsis: Qualifiers: Sepsis acute organ dysfunction status: without acute organ dysfunction Sepsis type: sepsis due to unspecified organism Qualified Code(s): A41.9 - Sepsis, unspecified organism Code(s): A41.9 - Sepsis, unspecified organism Status: Acute Assessment and Plan: Present on admission with tachycardia and leukocytosis Secondary to cellulitis. BCx no growth to date. Clinically improved with IV antibiotics (2) Cellulitis of arm, right: Code(s): L03.113 - Cellulitis of right upper limb Status: Acute Assessment and Plan: Right arm cellulitis related to open areas on the forearm. Was of Cafazolin but changed to zosyn and vanc 01/19 since arm looked worse. blood cultures remain negative. Arm continues to improve. (3) Atrial fibrillation with rapid ventricular response: Code(s): I48.91 - Unspecified atrial fibrillation Status: Acute Assessment and Plan: Chronic AFib which she is not symptomatic with. Suspect the rapid ventricular response on admission secondary to sepsis and dehydration. Rate controlled - we continued beta-bryan and oral Amiodarone. We continued Eliquis (4) Hypertension: Qualifiers: Hypertension type: essential hypertension Qualified Code(s): I10 - Essential (primary) hypertension Code(s): I10 - Essential (primary) hypertension Status: Acute Assessment and Plan: Patient's blood pressure was reviewed closely Blood pressure remains mostly well controlled. We resumed home meds: Amlodipine resumed 01/20 and losartan 01/21 (5) Nonspecific colitis: Code(s): K52.9 - Noninfective gastroenteritis and colitis, unspecified Status: Acute Assessment and Plan: Continue steroid on taper per GI. Plan to wean dose on Tuesday. (6) Dizziness: Code(s): R42 - Dizziness and giddiness Status: Acute Assessment and Plan: Possible BPPV. She worked with PT. Meclizine was available prn. She worked with PT and OT. (7) DVT prophylaxis: Code(s): Z29.9 - Encounter for prophylactic measures, unspecified Status: Acute Assessment and Plan: Eliquis DS: Summary Hospital Course Reason for hospitalization: 84yo female here for right arm cellulitis. Please see H&P for details. Hospital Course: As above Time Spent with Patient Time attestation: Total time spent providing and/or coordinating discharge services:35 minutes Time spent: Greater than 30 minutes Exam Narrative: Exam Narrative: AF 152/85 90 Gen - NARD Chest - CTA bilaterally, nml RR CV - irregularly irregular. S1-S2. Abd - Soft, NT/ND, Positive BS Ext - No pedal edema Psych - Nml mood and affect Skin - only scant right forearm erythematous from wrist to antecubital fossa. 2 small dried lesions right forearm. Small left elbow abrasion healing normally DS: Data Data Completed and Pending Labs on day of discharge: Preliminary micro results at discharge 01/19/20 02:28 Blood Culture - Preliminary Blood 01/19/20 02:28 Blood Culture - Preliminary Blood Discharge Plan Discharge Attending physician on discharge: Timmy Castillo Discharging Clinician: Timmy Castillo Anticipated Discharge Date/Time: 01/23/20 13:54 Patient Disposition: Home, Self-Care Activity: as tolerated Diet: heart healthy Discharge Instructions: Please avoid large gathering, wear face coverings in public and practice social distance. Please complete your antibiotic course even if you are starting to feel well. Take precautions to avoid falls. Leave wounds open to air and cover with vasoline until healed. Rise slowly from a lying or sitting position. Pause before standing or walking. Follow-up with your doct
[2020-01-23 14:59] VITALS: BP 136/68; PULSE 68; RESP 14; TEMP 36.6; O2SAT 98
== END 2020-01-23 14:38 | disposition home or self-care (01) | DRG 872 ==
LOC: ANHED 05:01 → ANH2MED 05:12 → ANHIMU 06:04 → ANH3MED 01-20 23:19 → ANHIMU 01-24 13:14
PROVIDERS: Internal Medicine; Admitting Provider Family Medicine; Emergency Provider Emergency Medicine; PCP Internal Medicine; Visit Provider Internal Medicine
DX: A41.9 Sepsis, unspecified organism (principal); I48.20 Chronic atrial fibrillation, unspecified; L03.113 Cellulitis of right upper limb; S50.312A Abrasion of left elbow, initial encounter; W19.XXXA Unspecified fall, initial encounter; K52.9 Noninfective gastroenteritis and colitis, unspecified; R42 Dizziness and giddiness; I10 Essential (primary) hypertension; E78.5 Hyperlipidemia, unspecified; Z96.651 Presence of right artificial knee joint; Z79.01 Long term (current) use of anticoagulants; Z79.899 Other long term (current) drug therapy; Z86.711 Personal history of pulmonary embolism; Z87.891 Personal history of nicotine dependence
CPT/HCPCS: 36415; 70450; 80048; 80053; 83605; 83690; 84484; 85025; 85610; 85730; 87040; 90471; 90715; 93005; 96361; 96365; 96366; 96367; 96368; 96375; 97110; 97116; 97161; 97165; 99285; A9270; G0378; J0131; J0282; J0690; J0696; J2405; J2543; J3370; J7030

== ENCOUNTER 2020-03-21 10:30 | Outpatient (CLI) | payer MEDICARE, SELFPAY ==
--- NOTE | ~2020-03-21 | MM_ITS ---
EXAMINATION: MM screening cira BI w yuly HISTORY: Screening TECHNIQUE: Craniocaudal and mediolateral oblique 3-D tomosynthesis images were obtained and synthetic 2-D images were generated. CAD analysis was submitted and interpreted. COMPARISON: Comparison to multiple prior studies sequentially, with oldest reviewed study dated 02/03. BREAST PARENCHYMAL COMPOSITION: There are scattered areas of fibroglandular density. FINDINGS: There is no evidence of suspicious mass, calcification, or architectural distortion to sugg est malignancy in either breast. There has been no suspicious interval change. IMPRESSION: 1. No mammographic evidence of malignancy. 2. Recommend routine screening mammography in one year. BI-RADS Category 1: Negative Reviewed, dictated and finalized at location A.
== END 2020-03-21 10:31 | disposition home or self-care (01) ==
LOC: ANHIMG 10:35
PROVIDERS: PCP Internal Medicine; Visit Provider Internal Medicine
DX: Z12.31 Encounter for screening mammogram for malignant neoplasm of breast (principal)
CPT/HCPCS: 77063; 77067

== ENCOUNTER 2020-03-31 00:42 | Outpatient (CLI) | payer MEDICARE, SELFPAY ==
[2020-03-31 16:30] LABS: SARS-CoV-2 RNA PCR Negative
== END 2020-03-31 00:43 | disposition home or self-care (01) ==
LOC: ANHCOVIDDT 00:42
PROVIDERS: PCP Internal Medicine; Visit Provider Specialist
DX: Z01.812 Encounter for preprocedural laboratory examination (principal); Z20.828 Contact with and (suspected) exposure to other viral communicable diseases
CPT/HCPCS: 87635; C9803; U0003

== ENCOUNTER → 2020-04-02 00:50 | Day surgery (SDC) | payer MEDICARE, SELFPAY ==
--- NOTE | 2020-04-02 07:00 | ECG_ITS ---
Measurements Intervals [place] Rate: 49 P: 63 TN: 231 QRS: -6 QRSD: 84 T: 29 QT: 439 QTc: 398 Interpretive Statements SINUS BRADYCARDIA WITH FIRST DEGREE AV BLOCK POSSIBLE LEFT ATRIAL ENLARGEMENT ANTEROSEPTAL INFARCT, AGE INDETERMINATE BASELINE ARTIFACT- I, II, AVR, AVL, AVF, V4-V6 ABNORMAL ECG Electronically Signed On 04-02-2020 8:15:25 CDT by Dylon Kumari D.O.
--- NOTE | 2020-04-02 09:05 | SUR.PREOP ---
0730-pt presents to the [facility] for a CV. EKG obtained and found to be in Sinus Bradycardia. informed and cancelled procedure.
[2024-02-03 12:37] VITALS: BMI 22.6
--- NOTE | 2024-02-03 13:05 | PC.NURSE ---
Report to the Outpatient Waiting Room, entrance under the green pavilion located off [facility], at time _06:30am___on date 02/10/24 . Planned Procedure Time: __08:30am .? Time changes happen often and if your time is changed the preop area will call you the afternoon before. - You and your visitor will be asked to self-screen and do not enter if you have any COVID symptoms. Please call surgeon if you need to reschedule. - A mask is optional within the hospital at this time. Patients may have clear liquids (water, carbonated beverages, clear teas, apple juice) until 3 hours prior to surgery (05:30am) with a maximum of 20 ounces. - No food from midnight until time of surgery and no smoking Take only the following medications with a SIP of water on the morning of surgery: ___Busprione, Levothyroxine, Sotalol. May take pain pill if needed. DO NOT STOP ANY OF YOUR OTHER PRESCRIPTION MEDICATIONS PRIOR TO SURGERY EXCEPT THE FOLLOWING Medications to discontinue per physician Pt is to stop Eliquis prior to surgery per Dr Shaikh. Pt is awaiting a call back from their office now. Date to take last dose___per Dr Shaikh. Hold all vitamins, supplements, herbs, or probiotics 3 days prior to surgery, per Anesthesia. Date to take last dose 02/06/24. Please no make-up, nail ghanaian, hairspray, perfume, deodorant, or body powder the day of surgery.? No jewelry (including any body piercings) or valuables the day of surgery, leave them at home.? Please take a shower or bath the night before, or the morning of, surgery with an antibacterial soap.? Wear comfortable, loose fitting clothing.? - Jewelry must be removed prior to entering the operating room.? Rings and piercings that are not removed may be cut off. - The hospital will not accept responsibility for valuables.? - Please leave all valuables, including medications, at home the day of surgery. If you are going home after surgery, a licensed local [place] truck driver must drive you home.? - NO public transportation without another adult if you receive anesthesia. - We recommend that an adult stay with you for 24 hours following discharge. - We also recommend that you do not drive, make important decision, drink alcoholic beverages, or take any drugs that were not prescribed by your health care provider for at least 24 hours after your discharge time. Follow any additional instructions given to you from your surgeon. Telephone instructions given to ___patient and asked if any additional questions and then verbalized understanding. Patient advised to call surgeon office or pre surgery nurse liaison [phone] if any additional questions.
== END | disposition home or self-care (01) ==
PROVIDERS: PCP Internal Medicine; Visit Provider Specialist
PROC: 5A2204Z Restoration of Cardiac Rhythm, Single (ICD-10-PCS; principal; 2020-04-02 08:30)
DX: I48.91 Unspecified atrial fibrillation (principal); Z53.8 Procedure and treatment not carried out for other reasons
CPT/HCPCS: 93005; 99211; G0463

== ENCOUNTER 2021-07-13 13:12 | Inpatient (IN) | payer MEDICARE, SELFPAY ==
[2021-07-13] VITALS (17 sets, daily range): BP systolic 118–156; BP diastolic 73–107; PULSE 80–127; RESP 12–21; TEMP 36.4–36.7; O2SAT 95–100; BMI 29.8
--- NOTE | ~2021-07-13 | XR_ITS ---
EXAMINATION: XR retrograde pyelogram LT DATE: 07/21/2021 14:54 INDICATION: Retrograde left pyelogram. TECHNIQUE: Single fluoroscopic image of the abdomen and pelvis was obtained during procedure performe d by Dr. Shaikh. Radiologist was not present for the imaging or procedure. The amount of fluoroscopy time used during this procedure was 9.9 minutes. COMPARISON: 07/17/2021 FINDINGS: Image demonstrates contrast extending through a left percutaneous nephrostomy tube with opacification of the and calyces and renal pelvis of the left kidney with mild hydronephrosis. There is a small am ount of contrast within the distal left ureter. Large right staghorn calculus. IMPRESSION: 1. Fluoroscopy utilized during urologic procedure. See procedure note for further detail. 2. Left percutaneous nephrostomy tube tip in the left renal pelvis. Reviewed, dictated and finalized at location A. IDENT AND CHIEF OPERATING OFFICER IMPRESSION: 1. Fluoroscopy utilized during urologic procedure. See procedure note for furth er detail. 2. Left percutaneous nephrostomy tube tip in the left renal pelvis.
--- NOTE | ~2021-07-13 | XR_ITS ---
EXAMINATION: XR chest 2V DATE: 07/13/2021 13:39 INDICATION: Back pain radiating to the left shoulder TECHNIQUE: frontal and lateral views of the chest were obtained. COMPARISON: Chest radiograph dated 12/17/2014 FINDINGS: Mild biapical pleural-parenchymal scarring. Opacities at the bilateral lung bases consistent with sma ll bilateral pleural effusions with associated basilar atelectasis versus less likely pneumonia. Scat tered bilateral small calcified pulmonary nodules along with calcified bilateral hilar and mediastina l lymph nodes consistent with old granulomatous disease. No pneumothorax. Borderline heart size accou nting for AP technique. There appears be contrast within the right renal collecting system with mild right hydronephrosis. [place] for recent contrast administration. IMPRESSION: 1. Small bilateral pleural effusions with bibasilar atelectasis versus less likely pneumonia. 2. Increased density in the right renal pelvis demonstrating mild hydronephrosis suggesting recent in travenous contrast administration. Correlate with clinical history. Reviewed, dictated and finalized at location A. RCHANGE AGENT IMPRESSION: 1. Small bilateral pleural effusions with bibasilar atelectasis versus less lik heriberto pneumonia. 2. Increased density in the right renal pelvis demonstrating mild hydronephrosi s suggesting recent intravenous contrast administration. Correlate with clinica l history.
--- NOTE | ~2021-07-13 | CT_ITS ---
EXAMINATION: CT abdomen pelvis wo con DATE: 07/17/2021 14:05 INDICATION: Left hydronephrosis. Contrast extravasation post attempted placement of a left internal u reteral stent concerning for ureteral injury. TECHNIQUE: Computed tomography (CT) of the abdomen and pelvis was performed without intravenous contr ast. Automated exposure control and iterative reconstruction technique were employed. The dose-length product was 453.76 mGy-cm. COMPARISON: 07/14/2021 FINDINGS: No significant change in small bilateral pleural effusions with dependent atelectasis in the bilatera l lower lobes. A few small calcite nodules at the bilateral lung bases and calcified mediastinal lymp h nodes, numerous splenic calcifications and a few hepatic calcific lesions, all consistent with old granulomatous disease. Cardiomegaly. Unchanged very small pericardial effusion. Gallstones in the gal lbladder which is otherwise normal in appearance. Pancreas and right adrenal gland are normal. Unchan ged 1.3 cm low-attenuation left adrenal adenoma. Large staghorn calculus in the right kidney with no right-sided hydronephrosis. There is moderate left hydronephrosis with contrast in the renal collecti ng system from a recent retrograde pyelogram. There is a left internal ureteral stent the distal loop formed in the bladder. The proximal aspect of the stent appears to have dissected of the ureter and is coiled anterior to the left renal pelvis. There is extravasated contrast in the perirenal soft tis sues signal extending into the left anterior pararenal space and caudally along the left retroperiton eum into the pelvis. No bowel obstruction. There is some fluid throughout the colon consistent with d iarrhea. Moderate sigmoid diverticulosis without adjacent inflammatory change to suggest diverticulit is. The uterus is not identified and has likely been surgically resected. Small bilateral fat-contain ing inguinal hernias. Minimal low-attenuation ascites in the cul-de-sac. Large right gluteus raheem intramuscular lipoma. Severe thoracolumbar spondylosis. IMPRESSION: 1. Likely iatrogenic proximal left ureteral injury with contrast from the left renal collecting syste m extravasating into the left retroperitoneum and with proximal loop of the internal ureteral stent p ositioned in the perirenal fat anterior to the renal pelvis. 2. Large nonobstructing right staghorn calculus. 3. Unchanged small bilateral pleural effusions with dependent atelectasis in the bilateral lower lobe s. 4. Unchanged small pericardial effusion. Reviewed, dictated and finalized at location A. L TRANSPORTATION ENGINEER IMPRESSION: 1. Likely iatrogenic proximal left ureteral injury with contrast from the left renal collecting system extravasating into the left retroperitoneum and with pr oximal loop of the internal ureteral stent positioned in the perirenal fat ante rior to the renal pelvis. 2. Large nonobstructing right staghorn calculus. 3. Unchanged small bilateral pleural effusions with dependent atelectasis in th e bilateral lower lobes. 4. Unchanged small pericardial effusion.
--- NOTE | ~2021-07-13 | CT_ITS ---
EXAMINATION: CT guide nephro tube pl LT DATE: 07/17/2021 15:24 INDICATION: Left nephrostomy tube placement for a left ureteropelvic junction obstruction with modera te hydronephrosis and unsuccessful attempt at left internal ureteral stent placement. TECHNIQUE: The procedure including the risks and benefits was discussed with the patient. Risks discu ssed included bleeding and infection. The patient understood the risks and benefits and agreed to pro ceed. The patient was confirmed to be receiving appropriate antibiotic coverage. The skin overlying the left kidney was prepped and draped in usual sterile fashion. Anesthetic was administered with 1% lidocaine subcutaneously. An 18 gauge trochar needle was inserted into an inferior calyx of the left kidney under CT guidance. The needle was exchanged over a wire and the tract of a dilated to 9 Frenc h. An 8.5 Tristanian pigtail catheter was advanced over the wire into the left renal pelvis with position confirmed by CT. The loop was formed and locked and catheter was stitched to the skin. Antibiotic oi ntment and a dressing were applied. An additional adhesive fixation device was applied. 10 mm of rela tively clear pinkish tinged urine was aspirated and sent to the lab for Gram stain and cultures. The catheter was then attached to gravity drainage and was clearing additional clearing urine at the conc lusion of the procedure. The dose-length product was 288.69 mGy-cm. There were no immediate complicat ions. FINDINGS: CT images demonstrate the nephrostomy tube in the renal pelvis. Plastics Sheet Finishing Press Operator images demonstrate mo derate left hydronephrosis. There is extraluminal position of a left intrarenal stent which is coiled in the fat anterior to the left renal pelvis. There is contrast from the prior procedure within the right renal collecting system and extravasated into the retroperitoneal tissue surrounding the right kidney. A staghorn calculus without hydronephrosis is seen filling the right renal pelvis and extendi ng into the calyces. IMPRESSION: 1. Successful CT-guided left nephrostomy tube placement]. Reviewed, dictated and finalized at location A. ANICAL PRODUCT DESIGN ENGINEER
--- NOTE | ~2021-07-13 | CT_ITS ---
EXAMINATION: CT abdomen pelvis wo con DATE: 07/14/2021 15:28 INDICATION: Nephrolithiasis. TECHNIQUE: Computed tomography (CT) of the abdomen and pelvis was performed without intravenous contr ast. Automated exposure control and iterative reconstruction technique were employed. The dose-length product was 383.75 mGy-cm. COMPARISON: CT abdomen and pelvis 01/26/2017, Ultrasound kidneys 07/14/2021 FINDINGS: The visualized portions of the lung bases demonstrate small pleural effusions, right worse than left. Calcified pulmonary nodules and calcified hilar lymph nodes are consistent with old granul omatous disease. There is atelectasis in the lungs with a dependent predominance. Cardiomegaly is not ed. There are coronary artery calcifications. There is a small pericardial effusion. There are calcif ications of the aortic valve. Calcifications in the liver and spleen are consistent with old granulom atous disease. There are gallstones in the gallbladder, which is normal in size. The pancreas and rig ht adrenal gland are normal. There is a 13 mm mass in left adrenal gland measuring low attenuation, c onsistent with an adenoma. There is moderate atrophy of right kidney. There is a 5.0 cm staghorn calc ulus in right kidney. There is severe left hydronephrosis with transition point at the ureteropelvic junction. There is cortical thinning of left kidney. There are no dilated loops of bowel. There is di verticulosis of the colon without evidence of diverticulitis. The appendix is not visualized. There a re bilateral inguinal hernias containing fat. There are no pathologically enlarged lymph nodes. There is no free intraperitoneal fluid. There is a lipoma deep to the right gluteus raheem muscle. There is severe thoracic and lumbar spondylosis. IMPRESSION: 1. Staghorn calculus in right kidney. Moderate right kidney atrophy. 2. Severe left hydronephrosis with transition point at the ureteropelvic junction, new from 01/26/2017 . Mild left kidney atrophy. 3. Small pleural effusions. 4. Small pericardial effusion. Reviewed, dictated and finalized at location A. ICATION DEVELOPMENT CONSULTANT IMPRESSION: 1. Staghorn calculus in right kidney. Moderate right kidney atrophy. 2. Severe left hydronephrosis with transition point at the ureteropelvic juncti on, new from 01/26/2017. Mild left kidney atrophy. 3. Small pleural effusions. 4. Small pericardial effusion.
--- NOTE | ~2021-07-13 | US_ITS ---
EXAMINATION: US renal BI EXAM DATE: 07/14/2021 10:08 INDICATION: Renal failure, kidney stones. TECHNIQUE: Multiple grayscale and Doppler images of the kidneys were obtained (by a technologist who performed the scan) and subsequently reviewed. There is no prior study for comparison. FINDINGS: Right kidney: There is normal contour and echogenicity. It measures 7.4 x 3.6 x 3.8 centimeters. The re is large amount of shadowing coming from the renal pelvis region, could be sizable nephrolithiasis or ureteral stent if patient has such history. There is no hydronephrosis. Left kidney: There is normal contour and echogenicity. It measures 11.8 x 5.0 x 5.6 centimeters. Th ere are no focal renal lesions identified. Moderate hydronephrosis. Bladder unremarkable. IMPRESSION: 1. Large amount of shadowing artifact from right renal pelvis, could be stent or nephrolithiasis. Cl inical correlation. 2. Moderate left-sided hydronephrosis, could be obstructive nephropathy. Reviewed, dictated and finalized at location B. CE ADMINISTRATION IMPRESSION: 1. Large amount of shadowing artifact from right renal pelvis, could be stent or nephrolithiasis. Clinical correlation. 2. Moderate left-sided hydronephrosis, could be obstructive nephropathy.
--- NOTE | ~2021-07-13 | XR_ITS ---
EXAMINATION: XR retrograde pyelo w/stent LT DATE: 07/17/2021 12:42 INDICATION: Left-sided UPJ obstruction with hydronephrosis TECHNIQUE: 241 fluoroscopic images of the abdomen and pelvis were obtained during procedure performed by Dr. Shaikh. Radiologist was not present for the imaging or procedure. The amount of fluoroscopy t tonia used during this procedure was 7.8 minutes. COMPARISON: CT dated 07/14/[address] dated 07/17/2021 FINDINGS: Left retrograde contrast injection into the left ureter and left renal collecting system demonstrate a few mobile lucent filling defects which change in size and shape during the course of the injection consistent with gas bubbles. There is a left ureteral pelvic junction obstruction with narrowing and focal S-shaped change in course of the left ureter at the ureteropelvic junction. Contrast opacifies the moderately dilated left renal collecting system. Subsequent images demonstrate internal ureteral stent advanced retrograde along the left ureter to the region of the ureteropelvic junction. With ad ditional contrast injection there is extravasation of contrast into the fat surrounding the left katherin l pelvis with the tip of the catheter projecting over the left renal hilum external to the collecting system which is confirmed on subsequent CT images. The proximal loop of the stent is formed in the b ladder. Incidentally noted is a large staghorn calculus filling the right renal pelvis and calyces. IMPRESSION: 1. Left UPJ obstruction with moderate hydronephrosis. 2. Perforation and external advancement of the proximal tip of a left internal ureteral stent likely occurring at the ureteropelvic junction where there is an S-shaped course to the ureter with extralum inal extravasation of injected contrast. Reviewed, dictated and finalized at location A. L VIAL SEALER IMPRESSION: 1. Left UPJ obstruction with moderate hydronephrosis. 2. Perforation and external advancement of the proximal tip of a left internal ureteral stent likely occurring at the ureteropelvic junction where there is an S-shaped course to the ureter with extraluminal extravasation of injected cont rast.
--- NOTE | ~2021-07-13 | XR_ITS ---
EXAMINATION: XR nephrostogram DATE: 07/20/2021 08:20 INDICATION: Left ureteral injury. TECHNIQUE: I performed a left-sided nephrostogram by injecting Omnipaque 240 into the nephrostomy tub e under fluoroscopy. Eight images were obtained. The fluoroscopy exposure time was 0.4 minutes. COMPARISON: CT abdomen and pelvis 07/17/2021 FINDINGS: The left nephrostomy tube is in the renal pelvis. With injection, the calyces become disten ded, but contrast does not pass beyond the ureteropelvic junction. IMPRESSION: 1. Occluded left ureter. Reviewed, dictated and finalized at location A. [employer] IMPRESSION: 1. Occluded left ureter.
--- NOTE | ~2021-07-13 | NM_ITS ---
EXAMINATION: NM lasix renal scan DATE: 07/16/2021 11:36 INDICATION: Bilateral renal atrophy and hydronephrosis TECHNIQUE: 7.8 mCi Tc-99m MAG3 was administered IV. 40 mg furosemide was administered IV immediately afterward. The patient was scanned in the supine position. A posterior abdominal radionuclide angiog radha was obtained. A subsequent time course of static images of the kidneys, ureters, and bladder was obtained. COMPARISON: CT dated 07/14/2021 and 01/26/2017 and Lasix renal study dated 09/09/2016 FINDINGS: The posterior abdominal radionuclide angiogram and sequential static images show normal position and morphology of the kidneys. Again noted is mild decrease in size of the right kidney. Peak renal paren chymal uptake was 7.5 min in left kidney and 1.6 min in right kidney (normal peak 3-5 minutes). The relative early renal uptake was 55% on the left and 45% on the right (<40% is abnormal). There is a d ilated left renal collecting system. No abnormalities of the ureters or bladder are seen. T1/2 for clearance of activity from the left kidney and proximal collecting system was nonquantifiabl e with the plateau of of the activity curve with negligible clearance at 27 minutes. T1/2 for clearance of activity from the right kidney and proximal collecting system was 19.9 minutes. Notes on interpretation: T1/2 <10 minutes is normal, 10-15 minutes is low grade obstruction of questi onable clinical significance, 15-20 minutes is partial obstruction that is likely clinically signific ant, >20 minutes is high grade obstruction. Note that false positives may be seen with supine positio doron, dehydration, severely dilated nonobstructed kidney, atonic collecting system, poor renal functi on, and chronic furosemide use. IMPRESSION: 1. Symmetric kidney function. 2. Moderately delayed activity clearance from the right kidney consistent with partial obstruction w ith no hydronephrosis on the prior CT but with increase in the degree of clearance delay compared wit h the prior study. 2. Also worsening now severely delayed activity clearance from the left kidney which demonstrates wor sening hydronephrosis on CT imaging consistent with high-grade obstruction. The degree of obstruction can be overestimated in the setting of supine positioning, dehydration/poor renal function and a sev erely dilated or atonic collecting system. Reviewed, dictated and finalized at location A. STAMPER IMPRESSION: 1. Symmetric kidney function. 2. Moderately delayed activity clearance from the right kidney consistent with partial obstruction with no hydronephrosis on the prior CT but with increase i n the degree of clearance delay compared with the prior study. 2. Also worsening now severely delayed activity clearance from the left kidney which demonstrates worsening hydronephrosis on CT imaging consistent with high- grade obstruction. The degree of obstruction can be overestimated in the settin g of supine positioning, dehydration/poor renal function and a severely dilated or atonic collecting system.
--- NOTE | 2021-07-13 13:22 | ECG_ITS ---
Measurements Intervals [place] Rate: 120 P: [place]: 0 QRS: 32 QRSD: 98 T: 46 QT: 321 QTc: 455 Interpretive Statements ATRIAL FIBRILLATION WITH RAPID VENTRICULAR RESPONSE ANTEROSEPTAL INFARCT, AGE INDETERMINATE BASELINE ARTIFACT- II, III, AVR, AVF, V1-V6 ABNORMAL ECG Electronically Signed On 07-13-2021 13:40:35 RESTORATION OFFICER by Dylon Kumari D.O.
[2021-07-13 14:20] LABS: Basophils Absolute Auto 0.1 K/mm3 (0.0-0.1); Basophils Percent Auto 0.9 % (0.2-1.2); Eosinophils Absolute Auto 0.1 K/mm3 (0-0.3); Eosinophils Percent Auto 2.4 % (0-4.4); Hematocrit 23.6 % (37.0-47.0); Immature Granulocyte Absolute 0.01 K/mm3 (0.00-0.031); Immature Granulocyte Percent A 0.2 % (0-0.5); Lymphocytes Absolute Auto 0.92 K/mm3 (0.9-3.2); Lymphocytes Percent Auto 16.8 % (18.3-44.2); Mean Corpuscular HGB Conc 28.8 g/dl (32-36); Mean Corpuscular Hemoglobin 24.4 pg (26-34); Mean Corpuscular Volume 84.6 fl (80-100); Mean Platelet Volume 10.2 fl (7.4-10.4); Monocytes Absolute Auto 0.5 K/mm3 (0.1-0.6); Monocytes Percent Auto 8.4 % (2.6-8.5); Neutrophils Absolute Auto 3.9 K/mm3 (1.3-6.7); Neutrophils Percent Auto 71.3 % (45.5-73.1); Platelet Count Result 191 k/mm3 (150-375); Red Blood Count 2.79 M/mm3 (4.2-5.4); Red Cell Distribution Width 17.2 % (11.5-14.5); White Blood Count 5.5 K/mm3 (4.5-10.0)
--- NOTE | 2021-07-13 14:25 | ED.BACK ---
HPI - Back Pain/Injury General Chief Complaint: Back Pain/Injury Stated Complaint: BACK/SHOULDER PAIN Time Seen by Provider: 07/13/21 14:17 Source: patient Mode of arrival: ambulatory Limitations: no limitations History of Present Illness HPI Narrative: Patient is an 85-year-old female complaining of left lateral mid back pain, worse with movement and activity, 8 out of 10, sharp, nonradiating started approximately 2 months ago but worse the past 3 weeks. Patient states that she is seeing her PCP for this was given tramadol but unable to tolerate it it makes me want to throw up . Patient also states that she is short of breath this motion exertion but has been going on for a while . Patient denies any chest pain, abdominal pain, nausea, vomiting, diaphoresis, fever or chills. Related Data Home Medications Medication Instructions Recorded Confirmed Belsomra 10 mg PO HS 11/19/19 01/19/20 amlodipine 5 mg PO DAILY 11/19/19 01/19/20 ascorbic acid (vitamin C) 250 mg PO BID 11/19/19 01/19/20 bupropion HCl 150 mg PO BID 11/19/19 01/19/20 cholecalciferol (vitamin D3) 50 mcg PO DAILY 11/19/19 01/19/20 [Vitamin D3] levothyroxine 50 mcg PO DAILY 11/19/19 01/19/20 losartan 100 mg PO DAILY 11/19/19 01/19/20 metoprolol tartrate 25 mg PO BID 11/19/19 01/19/20 pravastatin 80 mg PO DAILY 11/19/19 01/19/20 amiodarone 200 mg PO DAILY 11/22/19 01/19/20 Eliquis 5 mg PO BID 01/19/20 01/19/20 budesonide 6 mg PO DAILY 01/19/20 01/19/20 Allergies Allergy/AdvReac Type Severity Reaction Status Date / Time enoxaparin Allergy Severe Other Verified 01/19/20 06:52 heparin Allergy Severe Other Verified 01/19/20 06:52 codeine AdvReac Mild Nausea Verified 01/19/20 06:52 Review of Systems Review of Systems: All systems reviewed & are unremarkable except as noted in HPI and below Constitutional: Constitutional: Denies body ache(s), Denies chills, Denies excessive sweating, Denies fatigue, Denies fever(s), Denies headache(s), Denies lethargy, Denies malaise, Denies weakness and Denies weight loss Eyes: Eyes: Denies blurry vision, Denies change in vision and Denies loss of vision ENT: Denies dizziness, Denies ear discharge, Denies headache(s), Denies lip swelling, Denies epistaxis, Denies nasal congestion, Denies neck pain, Denies throat swelling and Denies tongue swelling Cardiovascular: Cardiovascular: Denies chest pain, Denies chest pain at rest, Denies chest pain with activity, Denies diaphoresis, Denies rapid heart rate, Denies edema, Denies irregular heart rhythm, Denies lightheadedness, Denies palpitations, Denies dyspnea and Denies dyspnea on exertion Respiratory: Respiratory: Denies chest congestion, Denies cough, Denies hemoptysis, Denies dyspnea and Denies dyspnea on exertion Gastrointestinal: Gastrointestinal: Denies abdominal pain, Denies melena, Denies hematochezia, Denies diarrhea, Denies nausea, Denies vomiting and Denies hematemesis Musculoskeletal: Musculoskeletal: Denies abnormal gait, Denies deformity, Denies joint swelling, Denies limited range of motion, Denies neck pain and Denies numbness Neurologic: Denies Abnormal speech present, Denies abnormal gait, Denies confusion, Denies dizziness, Denies headache(s), Denies focal weakness, Denies loss of vision, Denies numbness, Denies Other visual disturbances, Denies Sensory deficit (Neuro) and Denies weakness Psychiatric: Psychiatric: Denies confusion, Denies depression, Denies auditory hallucinations, Denies homicidal ideation and Denies suicidal ideation Endocrine: Endocrine: Denies cold intolerance, Denies excessive sweating, Denies fatigue, Denies heat intolerance and Denies palpitations Hematologic/Lymphatic: Hematologic/Lymphatic: Denies easy bleeding and Denies easy bruising Allergic/Immunologic: Allergic/Immunologic: Denies lip swelling, Denies throat swelling and Denies tongue swelling PMFSH Past Medical History Medical History
[2021-07-13 14:29] LABS: Alanine Aminotransferase 12 U/L (4-35); Alkaline Phosphatase 76 U/L (38-126); Anion Gap 7 mmol/L (8-16); Aspartate Amino Transferase 21 U/L (14-36); Bilirubin,Total 0.3 mg/dL (0.2-1.3); Blood Urea Nitrogen 29 mg/dL (7-17); Calcium 9.4 mg/dL (8.4-10.2); Carbon Dioxide 20 mmol/L (22-30); Chloride 110 mmol/L (98-107); Estimated CRCL calculation 21 ml/min; Estimated Glomerular Filt Rate 27; Glucose 104 mg/dL (65-110); Lipase 82 U/L (23-300); Potassium 4.3 mmol/L (3.4-5.0); Sodium 137 mmol/L (137-145)
[2021-07-13 14:30] LABS: Hemoglobin 6.8 g/dL (12.0-15.0)
[2021-07-13 14:32] LABS: INR 1.6; Prothrombin Time 18.9 Seconds (11.1-14.7)
[2021-07-13 14:33] LABS: Hypochromasia 1+ (NORMAL); Partial Thromboplastin Time 37.8 SECONDS (22.3-36.8); Platelet Estimate Adequate (Adequate)
[2021-07-13 14:40] LABS: Troponin I < 0.012 ng/mL (0.000-0.034)
[2021-07-13] MEDS: HYDROmorphone HCL INJ (*CRX) 1 MG/ML SYR 0.5 MG IV PUSH ×2 (15:30→23:58)
[2021-07-13] MEDS: LACTATED RINGERS 1,000 ML 250 ML IV CONT (15:34)
[2021-07-13] MEDS: ONDANSETRON INJ 4 MG/2 ML VIAL IV PUSH (15:35)
[2021-07-13] MEDS: ACETAMINOPHEN 325 MG TABLET 650 MG PO (15:37)
--- NOTE | 2021-07-13 16:14 | ECG_ITS ---
Measurements Intervals [place] Rate: 111 P: [place]: 0 QRS: 21 QRSD: 98 T: 50 QT: 333 QTc: 454 Interpretive Statements ATRIAL FIBRILLATION WITH RAPID VENTRICULAR RESPONSE ANTEROSEPTAL INFARCT, AGE INDETERMINATE CONSIDER INFERIOR INFARCT, AGE INDETERMINATE BASELINE ARTIFACT- II, III, AVR, AVF, V3-V6 ABNORMAL ECG Electronically Signed On 07-14-2021 6:09:42 DUST CONTROL ENGINEER by Dylon Kumari D.O.
[2021-07-13 16:37] LABS: Troponin I < 0.012 ng/mL (0.000-0.034)
--- NOTE | 2021-07-13 16:48 | PC.NURSE ---
Pt continues to deny any possible source of bleeding, hx of anemia, and or any history of a blood transfusion. Per MD Hinton, repeat a H/H prior to administering blood. Clarified that MD Hinton wanted a repeat H/H at this time, and verbal order placed. Will send down H/H prior to blood. Pt reports improvement of pain and was able to nap following pain medication.
[2021-07-13 17:04] LABS: Hematocrit 21.7 % (37.0-47.0)
[2021-07-13 17:24] LABS: Hemoglobin 6.2 g/dL (12.0-15.0)
--- NOTE | 2021-07-13 18:00 | PM.IMHP ---
H&P: HPI History of Present Illness Date/Time: 07/13/21 18:00 Chief Complaint: Left back pain and shortness of breath. Narrative: This is a very pleasant 85-year-old female with hypertension, hyperlipidemia, paroxysmal atrial fibrillation, hypothyroidism, and kidney stones who presented to the emergency department today for evaluation of left back pain and shortness of breath. The patient initially came in for evaluation of left mid back pain that has been present for about 2 months though worse these past few weeks. She describes a severe aching discomfort in the area, occasionally sharp with movement. She has been alternating heat and ice and has been taking Tylenol without a whole lot of benefit. More recently she was prescribed tramadol by her primary care provider and she tried to take that the other night however it made her nauseated and she had dry heaves the following morning thus she is no longer taking it. Additionally she has had increasing dyspnea on lesser and lesser exertion as well as episodes of lightheadedness and dizziness with position changes, for the past month or so. On arrival to the emergency department she was found to have a profound normocytic anemia and with further questioning she has not noticed any obvious blood loss. She specifically denies epistaxis, hematemesis, melena, hematochezia, hematuria, and vaginal bleeding. She does not take NSAIDs. She does report occasional dirt for which she takes Pepcid or Tums as needed. She has not noticed any significant abdominal distension or belching though she reports ongoing issues with nausea that she has thus far attributed to a combination of all of her medications. She has not had any recent injuries or falls. No history of peptic ulcers. She denies early satiety and weight loss. No dysuria. Review of Systems Review of Systems: Twelve systems were reviewed and are negative except for as per HPI. [facility] Past Medical History Medical History (Updated 07/13/21 @ 20:12 by Octavia Cristina PA-C) Cerebral aneurysm Status post coil embolization. Chronic kidney disease Degenerative disc disease Depression Dyslipidemia Hemorrhoids Histoplasmosis Hypertension Hypothyroidism Kidney stones Including known right staghorn calculus. Nonspecific colitis Paroxysmal atrial fibrillation Pulmonary embolism Surgical History Surgical History (Updated 07/13/21 @ 20:12 by Octavia Cristina PA-C) History of arthroplasty of right knee History of cataract extraction History of colonoscopy with polypectomy History of lumbar surgery History of tonsillectomy and adenoidectomy History of total hysterectomy with bilateral salpingo-oophorectomy (BSO) Status post coil embolization of cerebral aneurysm Family History Family History Mother , in her 70s Hypertension Father Hypertension Acute myocardial infarction Social History Social History (Updated 07/13/21 @ 20:06 by Octavia Cristina PA-C) Social History: Surrogate decision maker: Code status: Full code. Smoking packs per day: 0.5 Smoking cigarettes per day: 10.0 Years smoked: 5 Smoking pack-years: 2.50 Smoking status: Former smoker Tobacco type: cigarettes Alcohol intake: current Drinks per week: 4 Alcohol use details: 6 oz of wine. Substance use: never Substance use type: does not use Additional living arrangements comments: as of September 2020. She and her had 3 children, all whom are . Additional occupation/education comments: Retired. Meds Home Medications and Allergies Home Medications Medication Instructions Recorded Confirmed Type Belsomra 10 mg PO HS 11/19/19 01/19/20 History amlodipine 5 mg PO DAILY 11/19/19 01/19/20 History ascorbic acid (vitamin C) 250 mg PO BID 11/19/19 01/19/20 History bupropion HCl 150 mg PO BID 11/19/19 01/19/20 History cholecalcifer
[2021-07-13] MEDS: diphenhydrAMINE HCl INJ 50 MG/ML VIAL 12.5 MG IV PUSH (18:12)
[2021-07-13] MEDS: dilTIAZem HCl INJ 25 MG/5 ML VIAL 10 MG IV PUSH (18:14)
[2021-07-13 18:22] LABS: Immature Reticulocyte Fraction 18.6 % (3.0-15.9); Reticulocyte Hemoglobin Conten 20.2 pg (28.2-35.7); Reticulocyte Percent 2.31 % (0.7-4.3); Reticulocytes Absolute 0.06 B/L (32.2-175.7)
[2021-07-13] MEDS: SODIUM CHLORIDE 0.9% IV 250 ML 30 ML IV CONT (18:25)
[2021-07-13] MEDS: TUBING, BLOOD PLUM PUMP TUBING 1 EACH XX (18:25)
[2021-07-13 19:40] LABS: Folic Acid 10.5 ng/mL (2.76->20)
[2021-07-13 23:00] LABS: Hematocrit 27.1 % (37.0-47.0)
[2021-07-13 23:22] LABS: Troponin I < 0.012 ng/mL (0.000-0.034)
--- NOTE | 2021-07-13 23:41 | ADMGEN ---
This patient, Nelia Peterson, was admitted to IMU Room 201-01. Patient oriented to hospital policies and general routines including ID bracelet, bed and alarms, visiting hours, pain management, procedures, bathroom and other care routines, personal items, smoking policy, room service/diet, and visiting hours. Information on how to activate the Rapid Response Team has been discussed. Patient is encouraged to report perceived risks to care and to ask questions if they do not understand what they are told or what they should do.
[2021-07-13 23:49] LABS: Iron 188 ug/dL (37-170)
[2021-07-13 23:58] LABS: Percent Iron Saturation 45 % (20-50)
[2021-07-14] VITALS (25 sets, daily range): BP systolic 116–143; BP diastolic 51–90; PULSE 68–127; RESP 18–20; TEMP 36.1–37.1; O2SAT 96–99
[2021-07-14 01:26] LABS: Add Urine Microscopic? YES; Appearance Urine Cloudy (Clear); Bacteria Urine 4+ /hpf; Bilirubin Urine Negative (Negative); Blood Urine 3+ (Negative); Color Urine Brown (Yellow); Glucose Urine UA Negative (Negative); Ketones Urine Negative (Negative); Leukocyte Esterase Ur 3+ LEU/UL (Negative); Mucus Urine Rare /lpf; Nitrate Urine Negative (Negative); Protein Urine 2+ mg/dL (Negative); RBC Urine >75 /hpf (0-2); Specific Grav Ur 1.014 (1.001-1.035); Urobilinogen Urine Negative mg/dL (<2.0); WBC Clumps Urine Present /HPF; WBC Urine >75 /hpf
[2021-07-14 04:34] LABS: Free T4 Free Thyroxine Reflex 1.06 ng/dL (0.78-2.19)
[2021-07-14 05:15] LABS: Hemoglobin 7.9 g/dL (12.0-15.0); Mean Corpuscular HGB Conc 30.4 g/dl (32-36); Mean Corpuscular Hemoglobin 25.8 pg (26-34); Mean Platelet Volume 10.6 fl (7.4-10.4); Platelet Count Result 188 k/mm3 (150-375); Red Blood Count 3.06 M/mm3 (4.2-5.4); Red Cell Distribution Width 17.9 % (11.5-14.5); White Blood Count 5.4 K/mm3 (4.5-10.0)
[2021-07-14 05:15] LABS: Total Triiodothyronine (T3) 1.15 NG/ML (0.97-1.69)
[2021-07-14 05:26] LABS: Alanine Aminotransferase 13 U/L (4-35); Albumin Level 3.7 g/dL (3.5-5.1); Alkaline Phosphatase 70 U/L (38-126); Anion Gap 6 mmol/L (8-16); Aspartate Amino Transferase 23 U/L (14-36); Bilirubin,Total 1.9 mg/dL (0.2-1.3); Blood Urea Nitrogen 27 mg/dL (7-17); Calcium 8.9 mg/dL (8.4-10.2); Carbon Dioxide 22 mmol/L (22-30); Chloride 111 mmol/L (98-107); Estimated CRCL calculation 22 ml/min; Estimated Glomerular Filt Rate 29; Glucose 92 mg/dL (65-110); Magnesium 2.3 mg/dL (1.6-2.3); Potassium 4.4 mmol/L (3.4-5.0); Sodium 139 mmol/L (137-145)
[2021-07-14] MEDS: LOSARTAN POTASSIUM 100 MG TABLET PO (09:01)
[2021-07-14] MEDS: CHOLECALCIFEROL 1,000 UNITS TABLET 2000 UNITS PO (09:01)
[2021-07-14] MEDS: LEVOTHYROXINE SODIUM 50 MCG TABLET PO (09:01)
[2021-07-14] MEDS: PRAVASTATIN SODIUM 20 MG TABLET 80 MG PO (09:01)
[2021-07-14] MEDS: METOPROLOL TARTRATE 25 MG TABLET PO ×2 (09:01→18:30)
[2021-07-14] MEDS: buPROPion HCL SR (12 HR) 150 MG TAB PO ×2 (09:01→18:30)
[2021-07-14] MEDS: PANTOPRAZOLE SODIUM IV 40 MG VIAL IV PUSH (09:02)
[2021-07-14] MEDS: METOPROLOL TARTRATE INJ 5 MG/5 ML VIAL 2.5 MG IV PUSH (09:12)
--- NOTE | 2021-07-14 10:36 | PM.IMPN ---
Progress Note: A&P Assessment and Plan (1) Profound anemia: Code(s): D64.9 - Anemia, unspecified Status: Acute Assessment and Plan: -down to 6.2 hgb -Stool was reportedly Hemoccult negative per ED physician. - She has not noticed blood loss in any form and specifically denies epistaxis, hematemesis, melena, hematochezia, and hematuria. -Iron studies have been obtained, she has a normal MCV, TIBC, Ferritin, folate, and B12. Slightly elevated serum iron of 188. -She will be transfused to a stable hemoglobin. This morning she is stable at 7.9. -Repeat stool for occult blood, consider GI consult -Eliquis on hold -Continue monitoring CBC (2) Chronic kidney disease: Code(s): N18.9 - Chronic kidney disease, unspecified Status: Acute Assessment and Plan: -She has not had labs done at this facility for over 1.5 years but creatinine today is higher than what she typically runs. Admitted with creat of 1.8 baseline appears to be around 1.0 in the past. -She appears euvolemic though is hypovolemic due to her profound anemia. 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 Large amount of shadowing artifact from right renal pelvis, could be stent or nephrolithiasis. Clinical correlation. 2. Moderate left-sided hydronephrosis, could be obstructive nephropathy. -Avoid nephrotoxic agents. -Continue monitoring daily BMP (3) Back pain: Code(s): M54.9 - Dorsalgia, unspecified Status: Acute Assessment and Plan: -She did have have some reproducible tenderness to palpation in the left mid back. -Pulmonary embolism unlikely as she is on anticoagulation. -Acetaminophen and heating pad available as needed. -renal US shows large amount of shadowing artifact from right renal pelvis, could be stent or nephrolithiasis, checking CT abd/pelv -consider urology consult -at this time she states her back pain has resolved (4) Atrial fibrillation with rapid ventricular response: Code(s): I48.91 - Unspecified atrial fibrillation Status: Acute Assessment and Plan: -sees Dr. Kumar -discussed case with cardiology BAKESHOP CLEANER Kylah Barbosa who reviewed office notes. Pt used to be on Metoprolol 25 BID but had significant bradycardia. They cut her dose to 12.5 and at one point discontinued it completely. She came into the office recently for an echo but was found to be in rvr with a rate of 140s. She was restarted on the 12.5 BID dose and was referred to EP at [place]. -pt comes in afib rvr with rate up to 130s/140s. Gave Metoprolol 2.5 IV once and restarted her 25 PO BID. -Will continue to monitor closely for bradycardia. If rate controlled and stable will order echo. (5) Hypertension: Qualifiers: Hypertension type: essential hypertension Qualified Code(s): I10 - Essential (primary) hypertension Code(s): I10 - Essential (primary) hypertension Status: Acute Assessment and Plan: -Blood pressures were reviewed and they are reasonable though a bit high in the 140 systolic. -Antihypertensives will be reviewed and resumed as appropriate. -Continue to monitor closely. (6) Hypothyroidism: Code(s): E03.9 - Hypothyroidism, unspecified Status: Acute Assessment and Plan: -Continue levothyroxine -TSH elevated but free T4 WNL (7) Abnormal urinalysis: Code(s): R82.90 - Unspecified abnormal findings in urine Status: Acute Assessment and Plan: -UA abnormal w/ 3+ leukocytes, >75 RBC, and >75 WBC -started on Rocephin pending urine culture Subjective Date/time seen: 07/14/21 10:36 Interval history: 85-year-old female with hypertension, hyperlipidemia, paroxysmal atrial fibrillation, hypothyroidism, and kidney stones admitted to the hospital for acute anemia down to hgb 6.2. Pt is resting comfortably at this time and has no complaints.
[2021-07-14 15:31] LABS: Hematocrit 26.2 % (37.0-47.0); Hemoglobin 7.6 g/dL (12.0-15.0)
--- NOTE | 2021-07-14 16:00 | WPDGICN ---
Assessment and Plan Assessment and plan (1) Acute on chronic blood loss anemia: Code(s): D62 - Acute posthemorrhagic anemia Status: Acute GI Consult Note Consult date/time: 07/14/21 16:00 Reason for consult: acute on chronic anemia HPI: Nelia Peterson is a 85 year old female with history of hypertension, hyperlipidemia, paroxysmal atrial fibrillation with remote PE on eliquis and kidney stones who came to the emergency department because worsening left back pain that started about 2 months and progressive shortness of breath. She is having severe aching discomfort in the area, occasionally sharp with movement, has been taking pain medicines including nsaid's maybe 2-3 times a week and tramadol but caused nausea. Recently she has been lightheaded and feeling dizzy. Blood work showed significant anemia with hb 6.2 (baseline 11). She denies blood in stools but last several weeks noted blood in urine. CT scan a/p reviewed and showed staghorn calculus in right kidney. Moderate right kidney atrophy, severe left hydronephrosis with transition point at the ureteropelvic junction, new from 01/26/2017, small pleural effusions. She had a colonoscopy about 4 years ago with polyps, never had EGD. She uses pepcid as needed for reflux. Review of Systems Constitutional: Constitutional: Reports lethargy Eyes: Eyes: Denies blurry vision ENT: Reports Normal hearing present Cardiovascular: Cardiovascular: Denies chest pain Respiratory: Respiratory: Reports dyspnea on exertion Gastrointestinal: Gastrointestinal: Denies abdominal pain and Reports nausea Genitourinary: Genitourinary: Reports hematuria Musculoskeletal: Musculoskeletal: Reports back pain Integumentary/Breasts: Skin/Breast: Denies dry skin Neurologic: Denies headache(s) Psychiatric: Psychiatric: Denies behavioral changes [facility] Past Medical History Medical History (Updated 07/14/21 @ 16:11 by Jhoan Estes MD) Acute on chronic blood loss anemia Cerebral aneurysm Status post coil embolization. Chronic kidney disease Degenerative disc disease Depression Dyslipidemia Hemorrhoids Histoplasmosis Hypertension Hypothyroidism Kidney stones Including known right staghorn calculus. Nonspecific colitis Paroxysmal atrial fibrillation Pulmonary embolism Surgical History Surgical History (Updated 07/13/21 @ 20:12 by Octavia Cristina PA-C) History of arthroplasty of right knee History of cataract extraction History of colonoscopy with polypectomy History of lumbar surgery History of tonsillectomy and adenoidectomy History of total hysterectomy with bilateral salpingo-oophorectomy (BSO) Status post coil embolization of cerebral aneurysm Family History Family History Mother , in her 70s Hypertension Father Hypertension Acute myocardial infarction Social History Social History (Updated 07/13/21 @ 20:06 by Octavia Cristina PA-C) Social History: Surrogate decision maker: Code status: Full code. Smoking packs per day: 0.5 Smoking cigarettes per day: 10.0 Years smoked: 5 Smoking pack-years: 2.50 Smoking status: Never smoker Tobacco type: cigarettes Alcohol intake: former Drinks per week: 4 Alcohol use details: 6 oz of wine. Substance use: never Substance use type: does not use Additional living arrangements comments: as of September 2020. She and her had 3 children, all whom are . Additional occupation/education comments: Retired. Spiritual care concerns: No Meds Home Medications and Allergies Home Medications Medication Instructions Recorded Confirmed Type Belsomra 10 mg PO HS 11/19/19 07/14/21 History bupropion HCl 150 mg PO BID 11/19/19 07/14/21 History cholecalciferol (vitamin D3) 50 mcg PO DAILY 11/19/19 07/14/21 History [Vitamin D3] levothyroxine 50 mcg PO DAILY 11/04
[2021-07-14] MEDS: BISACODYL 5 MG TABLET EC PO (20:51)
[2021-07-14] MEDS: HYDROmorphone HCL INJ (*CRX) 1 MG/ML SYR 0.5 MG IV PUSH (22:39)
[2021-07-15] VITALS (19 sets, daily range): BP systolic 121–150; BP diastolic 58–93; PULSE 44–127; RESP 16–20; TEMP 36.2–36.6; O2SAT 97–100
[2021-07-15 05:18] LABS: Basophils Absolute Auto 0.1 K/mm3 (0.0-0.1); Basophils Percent Auto 0.9 % (0.2-1.2); Eosinophils Absolute Auto 0.3 K/mm3 (0-0.3); Hematocrit 28.1 % (37.0-47.0); Hemoglobin 8.2 g/dL (12.0-15.0); Immature Granulocyte Absolute 0.03 K/mm3 (0.00-0.031); Immature Granulocyte Percent A 0.4 % (0-0.5); Lymphocytes Absolute Auto 1.31 K/mm3 (0.9-3.2); Lymphocytes Percent Auto 16.5 % (18.3-44.2); Mean Corpuscular HGB Conc 29.2 g/dl (32-36); Mean Corpuscular Hemoglobin 24.9 pg (26-34); Mean Corpuscular Volume 85.4 fl (80-100); Mean Platelet Volume 10.4 fl (7.4-10.4); Monocytes Absolute Auto 0.9 K/mm3 (0.1-0.6); Monocytes Percent Auto 11.9 % (2.6-8.5); Neutrophils Absolute Auto 5.3 K/mm3 (1.3-6.7); Neutrophils Percent Auto 66.3 % (45.5-73.1); Nucleated Red Blood Cells Perc 0.4 % (0.0-0.2); Platelet Count Result 218 k/mm3 (150-375); Red Blood Count 3.29 M/mm3 (4.2-5.4); Red Cell Distribution Width 18.1 % (11.5-14.5); White Blood Count 7.9 K/mm3 (4.5-10.0)
[2021-07-15 05:32] LABS: Alanine Aminotransferase 12 U/L (4-35); Albumin Level 3.9 g/dL (3.5-5.1); Alkaline Phosphatase 71 U/L (38-126); Anion Gap 13 mmol/L (8-16); Aspartate Amino Transferase 21 U/L (14-36); Bilirubin,Total 0.4 mg/dL (0.2-1.3); Blood Urea Nitrogen 29 mg/dL (7-17); Carbon Dioxide 20 mmol/L (22-30); Chloride 107 mmol/L (98-107); Estimated CRCL calculation 21 ml/min; Estimated Glomerular Filt Rate 27; Glucose 97 mg/dL (65-110); Potassium 4.7 mmol/L (3.4-5.0); Sodium 140 mmol/L (137-145)
[2021-07-15] MEDS: PRAVASTATIN SODIUM 20 MG TABLET 80 MG PO (09:21)
[2021-07-15] MEDS: LEVOTHYROXINE SODIUM 50 MCG TABLET PO (09:21)
[2021-07-15] MEDS: CHOLECALCIFEROL 1,000 UNITS TABLET 2000 UNITS PO (09:21)
[2021-07-15] MEDS: METOPROLOL TARTRATE 25 MG TABLET PO ×2 (09:21→16:25)
[2021-07-15] MEDS: PANTOPRAZOLE SODIUM IV 40 MG VIAL IV PUSH (09:21)
[2021-07-15] MEDS: LOSARTAN POTASSIUM 100 MG TABLET PO (09:21)
[2021-07-15] MEDS: buPROPion HCL SR (12 HR) 150 MG TAB PO ×2 (09:21→16:25)
--- NOTE | 2021-07-15 10:31 | PM.IMPN ---
Progress Note: A&P Assessment and Plan (1) Profound anemia: Code(s): D64.9 - Anemia, unspecified Status: Acute Assessment and Plan: -down to 6.2 hgb on admission -Stool was reportedly Hemoccult negative per ED physician. -She has not noticed blood loss in any form and specifically denies epistaxis, hematemesis, melena, hematochezia, and hematuria. -Iron studies obtained, she has a normal MCV, TIBC, Ferritin, folate, and B12. Slightly elevated serum iron of 188. -She is s/p 2 units PRBCs with a stable hgb of 8.2 -Repeat stool for occult blood, consider GI consult if positive or if hgb drops again -Eliquis on hold -Continue monitoring CBC (2) Chronic kidney disease: Code(s): N18.9 - Chronic kidney disease, unspecified Status: Acute Assessment and Plan: -She has not had labs done at this facility for over 1.5 years but creatinine today is higher than what she typically runs. -Admitted with creat of 1.8 baseline and she appears to be around 1.0 in the past. -She appears euvolemic though was hypovolemic due to her profound anemia. 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 Large amount of shadowing artifact from right renal pelvis, could be stent or nephrolithiasis. Clinical correlation. 2. Moderate left-sided hydronephrosis, could be obstructive nephropathy. -CT abd/pelv shows known staghorn calculus R kidney and severe left hydronephrosis new from 01/26/17 -urology consulted -Avoid nephrotoxic agents. -Continue monitoring daily BMP (3) Back pain: Code(s): M54.9 - Dorsalgia, unspecified Status: Acute Assessment and Plan: -She did have have some reproducible tenderness to palpation in the left mid back. -Pulmonary embolism unlikely as she is on anticoagulation. -Acetaminophen and heating pad available as needed. -renal US shows large amount of shadowing artifact from right renal pelvis, could be stent or nephrolithiasis -CT abd/pelv shows known staghorn calculus R kidney and severe left hydronephrosis new from 01/26/17 -urology consulted -at this time she states her back pain has resolved (4) Atrial fibrillation with rapid ventricular response: Code(s): I48.91 - Unspecified atrial fibrillation Status: Acute Assessment and Plan: -sees Dr. Kumar -discussed case with cardiology [employer] TECHNICIAN Kylah Barbosa who reviewed office notes. Pt used to be on Metoprolol 25 BID but had significant bradycardia. They cut her dose to 12.5 and at one point discontinued it completely. She came into the office recently for an echo but was found to be in rvr with a rate of 140s. She was restarted on the 12.5 BID dose and was referred to EP at [facility]. -pt comes in afib rvr with rate up to 130s/140s. Gave Metoprolol 2.5 IV once and restarted her 25 PO BID. -Has been stable in the high 90s, low 100s, but will jump up to 130s often just prior to her next dose of Metoprolol. Reviewed chicken catcher with Dr. Kumar who states to continue the current dose. -will order echo -continue monitoring on telemetry (5) Hypertension: Qualifiers: Hypertension type: essential hypertension Qualified Code(s): I10 - Essential (primary) hypertension Code(s): I10 - Essential (primary) hypertension Status: Acute Assessment and Plan: -Blood pressures were reviewed and they are reasonable though a bit high in the 140 systolic. -Antihypertensives will be reviewed and resumed as appropriate. -Continue to monitor closely. (6) Hypothyroidism: Code(s): E03.9 - Hypothyroidism, unspecified Status: Acute Assessment and Plan: -Continue levothyroxine -TSH elevated but free T4 WNL (7) Abnormal urinalysis: Code(s): R82.90 - Unspecified abnormal findings in urine Status: Acute Assessment and Plan: -UA abnormal w/ 3+ leukocytes, >75 RBC, and >75 W
--- NOTE | 2021-07-15 10:42 | ECHO_ITS ---
Patient Info Name: Nelia Peterson Age: 85 years : 1935 Gender: Female Ht: 64 in Wt: 162 lbs BSA: 1.84 m2 HR: 86 bpm BP: 150 / 93 mmHg Heart Rhythm: Atrial Fibrillation Exam Date: 07/15/2021 2:36 PM Exam Location: [facility] Patient Status: Inpatient Admit Date: 07/15/2021 Staff Ordering Physician: Karen Blas PA-C Rn Examiner: Kashmir Galvin RDCS, RT Attending Provider: Karen Blas PA-C Referring Physician: Wan SHELLEY; Exam Type: CA echo doppler color flow Study Info Indications I48.1 - Persistent atrial fibrillation Complete two-dimensional, color flow and Doppler transthoracic echocardiogram is performed. Strain analysis performed. Summary 1. Complete two-dimensional, color flow and Doppler transthoracic echocardiogram is performed. 2. Left ventricular chamber dimension is normal. 3. Left ventricular systolic function is normal, estimated at 60-65%. 4. There is moderately increased left ventricular wall thickness. 5. The left ventricular diastolic function is abnormal. 6. Global longitudinal strain is abnormal at -9 %. 7. Left atrial chamber dimension is moderately enlarged. 8. Right atrial chamber dimension is mildly enlarged. 9. There is mild aortic valve stenosis with a peak velocity of 219 cm/s, mean gradient of 5 mmHg, and aortic valve area of 1.6 cm2. 10. There is mild aortic valve regurgitation. 11. There is moderate aortic valve calcification. 12. There is moderate to severe mitral valve regurgitation. 13. There is mild to moderate tricuspid valve regurgitation. 14. Mild pulmonary hypertension, estimated pulmonary arterial systolic pressure is 41 mmHg. 15. There is small pericardial effusion. 16. No echocardiographic evidence of tamponade physiology. 17. Strain analysis performed. Left Ventricle Left ventricular chamber dimension is normal. Left ventricular systolic function is normal, estimated at 60-65%. There is moderately increased left ventricular wall thickness. The left ventricular diastolic function is abnormal. Global longitudinal strain is abnormal at -9 %. Right Ventricle Right ventricular chamber dimension is normal. Right ventricular systolic function is normal. Left Atria Left atrial chamber dimension is moderately enlarged. Right Atria Right atrial chamber dimension is mildly enlarged. Atrial Septum Intact interatrial septum visualized by color flow imaging. Aortic Valve The aortic valve is trileaflet. There is mild aortic valve stenosis with a peak velocity of 219 cm/s, mean gradient of 5 mmHg, and aortic valve area of 1.6 cm2. There is mild aortic valve regurgitation. There is moderate aortic valve calcification. Pulmonic Valve The pulmonic valve is normal. There is no pulmonic valve stenosis. There is trace pulmonic regurgitation. Mitral Valve The mitral valve has thickened leaflets. There is no mitral valve stenosis. There is moderate to severe mitral valve regurgitation. Tricuspid Valve The tricuspid valve leaflets are normal. There is no significant tricuspid valve stenosis. There is mild to moderate tricuspid valve regurgitation. Mild pulmonary hypertension, estimated pulmonary arterial systolic pressure is 41 mmHg. Pericardium/Pleural The pericardium appears normal. There is small pericardial effusion. No echocardiographic evidence of tamponade physiology. Inferior Vena Cava Dilated inferior vena cava with <50% collapse upon inspiration consistent w
[2021-07-15] MEDS: BISACODYL 5 MG TABLET EC PO (15:26)
--- NOTE | 2021-07-15 15:54 | WPDGICN ---
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 She has been having back pain for which has been taking nsaid's as needed lately. She had CT scan a/p (reviewed) that showed staghorn calculus in right kidney, moderate right kidney atrophy, severe left hydronephrosis with transition point at the ureteropelvic junction, small pleural effusions. Review of Systems Constitutional: Constitutional: Reports weakness Eyes: Eyes: Reports no additional eye complaints ENT: Reports Normal hearing present Cardiovascular: Cardiovascular: Denies chest pain Respiratory: Respiratory: Denies dyspnea Gastrointestinal: Gastrointestinal: Denies abdominal pain and Denies melena Genitourinary: Comments: kidney stones Musculoskeletal: Musculoskeletal: Reports back pain Integumentary/Breasts: Skin/Breast: Denies dry skin Neurologic: Denies headache(s) Psychiatric: Psychiatric: Denies behavioral changes [facility] Past Medical History Medical History (Updated 07/15/21 @ 15:59 by Jhoan Estes MD) Acute on chronic blood loss anemia Cerebral aneurysm Status post coil embolization. 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 Nonspecific colitis Paroxysmal atrial fibrillation Pulmonary embolism Stone, kidney Surgical History Surgical History (Updated 07/13/21 @ 20:12 by Octavia Cristina PA-C) History of arthroplasty of right knee History of cataract extraction History of colonoscopy with polypectomy History of lumbar surgery History of tonsillectomy and adenoidectomy History of total hysterectomy with bilateral salpingo-oophorectomy (BSO) Status post coil embolization of cerebral aneurysm Family History Family History Mother , in her 70s Hypertension Father Hypertension Acute myocardial infarction Social History Social History (Updated 07/13/21 @ 20:06 by Octavia Cristina PA-C) Social History: Surrogate decision maker: Code status: Full code. Smoking packs per day: 0.5 Smoking cigarettes per day: 10.0 Years smoked: 5 Smoking pack-years: 2.50 Smoking status: Never smoker Tobacco type: cigarettes Alcohol intake: former Drinks per week: 4 Alcohol use details: 6 oz of wine. Substance use: never Substance use type: does not use Additional living arrangements comments: as of September 2020. She and her had 3 children, all whom are . Additional occupation/education comments: Retired. Spiritual care concerns: No Meds Home Medications and Allergies Home Medications Medication Instructions
--- NOTE | 2021-07-15 16:02 | WPDURCON ---
Assessment and Plan Assessment and plan (1) Hydronephrosis, left: Code(s): N13.30 - Unspecified hydronephrosis Status: Acute Assessment and Plan: Will get a Renal Lasix scan to further evaluate kidney function and determine if a left stent needs placement. Keep NPO after midnight and we will re-assess tomorrow after her scan. (2) Staghorn renal calculus: Code(s): N20.0 - Calculus of kidney Status: Acute Assessment and Plan: NO further plans to evaluate, not causing hydronephrosis or chronic UTI's. This can just be monitored. (3) Renal atrophy: Code(s): N26.1 - Atrophy of kidney (terminal) Status: Acute (4) Acute renal failure: Code(s): N17.9 - Acute kidney failure, unspecified Status: Acute Assessment and Plan: Creatinine 1.80 up from baseline of 1.00 in 01/2020, may need stent to improve creatinine d/t hydronephrosis. (5) E coli infection: Code(s): A49.8 - Other bacterial infections of unspecified site Status: Acute Assessment and Plan: Sensitivity report pending. Continue Ceftriaxone tailor to culture results. Secondary to hydronephrosis, dehydration or staghorn calculi. Urology Consult Note HPI Date Seen: 07/15/21 Requesting Physician: Karen Bals PA-C Primary Care Provider: Andrés Viveros, Consult Narrative Narrative: Nelia Peterson is a 85 year old female who presented to the ER with left flank pain and SOB. Her WBC is 7.9 and creatinine is 1.80 today, her baseline creatinine is 1.00 in 01/2020. She had a CT scan done which reveals a right staghorn stone measuring 5cm with moderate right kidney atrophy, severe left hydronephrosis and mild left renal atrophy which is new from 01/26/2017. There is no obvious obstruction causing the left hydro such as a stone. She is known to our practice d/t her staghorn right renal stone. She has seen Dr. Lorenzo many years ago for this and it was decided then that they wouldn't do anything with it unless it caused pain, chronic infections or obstruction. She denies dysuria, hematuria, frequency, urgency or right sided flank pain. She also denies difficulty with urination. Review of Systems Cardiovascular: Cardiovascular: Denies chest pain Respiratory: Respiratory: Reports no additional respiratory complaints Gastrointestinal: Gastrointestinal: Denies abdominal pain, Denies nausea and Denies vomiting Genitourinary: Genitourinary: Denies hematuria, Denies dysuria, Denies pelvic pain, Reports flank pain, Denies urinary incontinence, Denies urinary hesitancy and Denies urinary urgency PMF Past Medical History Medical History Acute on chronic blood loss anemia Cerebral aneurysm Status post coil embolization. 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 Nonspecific colitis Paroxysmal atrial fibrillation Pulmonary embolism Stone, kidney Surgical History Surgical History History of arthroplasty of right knee History of cataract extraction History of colonoscopy with polypectomy History of lumbar surgery History of tonsillectomy and adenoidectomy History of total hysterectomy with bilateral salpingo-oophorectomy (BSO) Status post coil embolization of cerebral aneurysm Family History Family History Mother , in her 70s Hypertension Father Hypertension Acute myocardial infarction Social History Social History Social History: Surrogate decision maker: Code status: Full code. Smoking packs per day: 0.5 Smoking cigarettes per day: 10.
[2021-07-15] MEDS: HYDROmorphone HCL INJ (*CRX) 1 MG/ML SYR 0.5 MG IV PUSH ×2 (16:24→22:34)
[2021-07-15] MEDS: ONDANSETRON INJ 4 MG/2 ML VIAL IV PUSH (20:49)
[2021-07-15 22:19] LABS: IFOB Positive Control Positive; Immunochemical Fecal Occult Bl Negative (N)
[2021-07-16] VITALS (13 sets, daily range): BP systolic 112–153; BP diastolic 50–87; PULSE 16–128; RESP 15–95; TEMP 36.1–36.8; O2SAT 94–100
[2021-07-16 05:28] LABS: Basophils Percent Auto 0.7 % (0.2-1.2); Eosinophils Absolute Auto 0.2 K/mm3 (0-0.3); Eosinophils Percent Auto 3.5 % (0-4.4); Hemoglobin 7.3 g/dL (12.0-15.0); Immature Granulocyte Absolute 0.02 K/mm3 (0.00-0.031); Immature Granulocyte Percent A 0.3 % (0-0.5); Lymphocytes Absolute Auto 1.16 K/mm3 (0.9-3.2); Lymphocytes Percent Auto 20.1 % (18.3-44.2); Mean Corpuscular HGB Conc 29.2 g/dl (32-36); Mean Corpuscular Hemoglobin 25.4 pg (26-34); Mean Corpuscular Volume 87.1 fl (80-100); Mean Platelet Volume 10.9 fl (7.4-10.4); Monocytes Absolute Auto 0.7 K/mm3 (0.1-0.6); Monocytes Percent Auto 11.3 % (2.6-8.5); Neutrophils Absolute Auto 3.7 K/mm3 (1.3-6.7); Neutrophils Percent Auto 64.1 % (45.5-73.1); Nucleated Red Blood Cells Perc 0.3 % (0.0-0.2); Platelet Count Result 187 k/mm3 (150-375); Red Blood Count 2.87 M/mm3 (4.2-5.4); Red Cell Distribution Width 18.6 % (11.5-14.5); White Blood Count 5.8 K/mm3 (4.5-10.0)
[2021-07-16 05:47] LABS: Alanine Aminotransferase 10 U/L (4-35); Albumin Level 3.5 g/dL (3.5-5.1); Alkaline Phosphatase 67 U/L (38-126); Anion Gap 8 mmol/L (8-16); Aspartate Amino Transferase 19 U/L (14-36); Bilirubin,Total 0.3 mg/dL (0.2-1.3); Blood Urea Nitrogen 26 mg/dL (7-17); Calcium 8.9 mg/dL (8.4-10.2); Carbon Dioxide 21 mmol/L (22-30); Chloride 109 mmol/L (98-107); Estimated CRCL calculation 21 ml/min; Estimated Glomerular Filt Rate 27; Glucose 98 mg/dL (65-110); Potassium 4.7 mmol/L (3.4-5.0); Sodium 138 mmol/L (137-145)
[2021-07-16 06:32] LABS: Anisocytosis 2+ (NORMAL); Hypochromasia 2+ (NORMAL); Platelet Estimate Adequate (Adequate)
[2021-07-16 06:33] LABS: Ovalocytes 1+ (NORMAL); Target Cells 1+ (NORMAL)
[2021-07-16] MEDS: FUROSEMIDE INJ 40 MG/4 ML VIAL IV PUSH (09:08)
--- NOTE | 2021-07-16 09:45 | WPDGIPROGNO ---
Progress Note: A&P Assessment and Plan (1) Acute on chronic blood loss anemia: Code(s): D62 - Acute posthemorrhagic anemia Status: Acute Assessment and Plan: she is agreeable to have egd and colonoscopy tomorrow to check if gi blood loss will order bowel prep (2) Hydronephrosis, left: Code(s): N13.30 - Unspecified hydronephrosis Status: Acute Assessment and Plan: noted elevated creatinine and urology ordered kidney scan, pending (3) Acute renal failure: Code(s): N17.9 - Acute kidney failure, unspecified Status: Acute Assessment and Plan: creat 1.8 (4) E coli infection: Code(s): A49.8 - Other bacterial infections of unspecified site Status: Acute Assessment and Plan: + urine culture, on abx (5) 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 Denies overt gib Review of Systems Review of Systems: All systems reviewed & are unremarkable except as noted in HPI and below Exam Const: General: comfortable and no acute distress HENMT: General nose exam: Normal nares present Eyes: General: appearance normal, both eyes and all related structures Neck: Neck: no JVD Resp: Auscultation: clear to auscultation bilaterally Cardio: Rate: regular rate Rhythm: regular rhythm GI: Inspection: non-distended GI Palp: Yes Soft to palpation Skin: General skin exam: normal color Neuro: General: gait normal Speech: normal speech Extrem: General: normal to inspection Psych: Mental Status: mental status grossly normal Objective Data Vital Signs Vital Signs: Vital Signs - 24 hr 07/15/21 10:00 07/15/21 12:00 07/15/21 14:00 Temperature 97.8 F Pulse Rate 109 H 105 H 110 H Respiratory Rate 18 Blood Pressure 130/72 Pulse Oximetry 100 07/15/21 16:00 07/15/21 17:39 07/15/21 18:00 Temperature 97.6 F Pulse Rate 97 101 H Respiratory Rate 16 Blood Pressure 124/83 124/76 Pulse Oximetry 100 07/15/21 20:00 07/15/21 21:16 02/09/22 21:50 Temperature 97.7 F Pulse Rate 103 H Respiratory Rate 18 Blood Pressure 140/82 128/76 Pulse Oximetry 98 97 07/15/21 22:00 07/15/21 23:37 07/16/21 00:00 Temperature 97.8 F Pulse Rate 105 H 103 H 106 H Respiratory Rate 20 20 Blood Pressure 141/76 H Pulse Oximetry 97 97 07/16/21 02:00 07/16/21 04:00 07/16/21 05:40 Temperature 97.9 F Pulse Rate 106 H 106 H 110 H Respiratory Rate 18 Blood Pressure 153/81 H Pulse Oximetry 97 07/16/21 08:00 Temperature 98.0 F Pulse Rate 104 H Respiratory Rate 18 Blood Pressure 137/72 Pulse Oximetry 96 Intake/Output Intake/Output: Intake & Output 07/13/21 07/14/21 07/15/21 07/16/21 23:59 23:59 23:59 23:59 Intake Total 410 1520 240 400 Output Total 1250 2200 800 Balance 410 270 -1960 -400 Meds/Results Medications: Active Medications Generic Name Dose Route Start Last Admin Trade Name Freq PRN Reason Stop Dose Admin Acetaminophen 650 mg 07/13/21 20:22 Acetaminophen 325 Mg Tablet PO Q6H PRN Mild Pain (1-3) or Fever Bisacodyl 5 mg 07/14/21 18:51 07/15/21 15:26 Bisacodyl 5 Mg Tablet Ec PO 5 mg DAILY PRN Administration Constipation Bisacodyl 20 mg 07/16/21 17:00 Bisacodyl 5 Mg Tablet Ec PO 07/16/21 17:01 ONCE ONE Bupropion HCl 150 mg 07/14/21 09:00 07/15/21 16:25 Bupropion Hcl Sr (12 Hr) 150 Mg Tab PO 150 mg BID RUY Administration Hydromorphone HCl 0.5 mg 07/13/21 16:15 07/15/21 22:34 Hydromorphone Hcl Inj (*Crx) 1 Mg/Ml Syr IV PUSH 0.5 mg Q4H PRN Administration Pain Rated 7-10 Ceftriaxone Sodium/Dextrose 1 gm in 50 mls @ 100 mls/hr 07/14/21 15:00 07/15/21 15:18 Rocephin 1 Gm/D5w 50 Ml IVPB 100 mls/hr Q24H RUY Admini
--- NOTE | 2021-07-16 11:29 | P.CDI_ITS ---
CDI Query Clarification Request 1) -Left Hydronephrosis was documented by Urology -07/14 CT impression: Severe left hydronephrosis with transition point at the ureteropelvic junction, new from 01/26/2017. Mild left kidney atrophy. -Left Hydronephrosis is not on the Hospitalist problem list please clarify if Left Hydronephrosis has been ruled in ruled out or unable to determine 2) -07/14 Urine culture growing greater than 100,000 E-Coli -Abnormal UA and started on Rocephin-urine culture positive for E. Coli, sen sitivity report pending Please clarify if there is a corresponding diagnosis for above findings: * UTI * Asymptomatic bacteriuria * Other * Unable to determine
--- NOTE | 2021-07-16 13:46 | PM.IMPN ---
Progress Note: A&P Assessment and Plan (1) Profound anemia: Code(s): D64.9 - Anemia, unspecified Status: Acute Assessment and Plan: -down to 6.2 hgb on admission -Stool was reportedly Hemoccult negative per ED physician. -She has not noticed blood loss in any form and specifically denies epistaxis, hematemesis, melena, hematochezia, and hematuria. -Iron studies obtained, she has a normal MCV, TIBC, Ferritin, folate, and B12. Slightly elevated serum iron of 188. -She is s/p 2 units PRBCs with a stable hgb of 7.3 -Repeat stool for occult blood negative -Eliquis on hold -GI consult, EGD and colonoscopy planned for tomorrow -Continue monitoring CBC (2) Chronic kidney disease: Code(s): N18.9 - Chronic kidney disease, unspecified Status: Acute Assessment and Plan: -She has not had labs done at this facility for over 1.5 years but creatinine today is higher than what she typically runs. -Admitted with creat of 1.8 baseline and she appears to be around 1.0 in the past. -She appears euvolemic though was hypovolemic due to her profound anemia. 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 Large amount of shadowing artifact from right renal pelvis, could be stent or nephrolithiasis. Clinical correlation. 2. Moderate left-sided hydronephrosis, could be obstructive nephropathy. -CT abd/pelv shows known staghorn calculus R kidney and severe left hydronephrosis new from 01/26/17 -urology consulted -lasix renal scan today shows worsening now severely delayed activity clearance from the left kidney which demonstrates worsening hydronephrosis on CT imaging consistent with high-grade obstruction. appreciate urology recommendations. (3) Back pain: Code(s): M54.9 - Dorsalgia, unspecified Status: Acute Assessment and Plan: -She did have have some reproducible tenderness to palpation in the left mid back. -Pulmonary embolism unlikely as she is on anticoagulation. -Acetaminophen and heating pad available as needed. -renal US shows large amount of shadowing artifact from right renal pelvis, could be stent or nephrolithiasis -CT abd/pelv shows known staghorn calculus R kidney and severe left hydronephrosis new from 01/26/17 -urology consulted -at this time she states her back pain has dramatically improved (4) Atrial fibrillation with rapid ventricular response: Code(s): I48.91 - Unspecified atrial fibrillation Status: Acute Assessment and Plan: -sees Dr. Kumar -discussed case with cardiology MOSHGI[place] Kylah Barbosa who reviewed office notes. Pt used to be on Metoprolol 25 BID but had significant bradycardia. They cut her dose to 12.5 and at one point discontinued it completely. She came into the office recently for an echo but was found to be in rvr with a rate of 140s. She was restarted on the 12.5 BID dose and was referred to EP at [facility]. -pt comes in afib rvr with rate up to 130s/140s. Gave Metoprolol 2.5 IV once and restarted her 25 PO BID. -Has been stable in the high 90s, low 100s, but will jump up to 130s often just prior to her next dose of Metoprolol. Reviewed security monitor with Dr. Kumar who states to continue the current dose. -reviewed echo -continue monitoring on telemetry (5) Hypertension: Qualifiers: Hypertension type: essential hypertension Qualified Code(s): I10 - Essential (primary) hypertension Code(s): I10 - Essential (primary) hypertension Status: Acute Assessment and Plan: -stable -Antihypertensives will be reviewed and resumed as appropriate. -Continue to monitor closely. (6) Hypothyroidism: Code(s): E03.9 - Hypothyroidism, unspecified Status: Acute Assessment and Plan: -Continue levothyroxine -TSH elevated but free T4 WNL (7) Pericardial effusion: Code(s): I31.3 - Pericardial effusion (noninflam
--- NOTE | 2021-07-16 15:03 | WPDUROPN2 ---
Progress Note: A&P Assessment and Plan (1) UTI (urinary tract infection): Code(s): N39.0 - Urinary tract infection, site not specified Status: Acute (2) E coli infection: Code(s): A49.8 - Other bacterial infections of unspecified site Status: Acute Assessment and Plan: Continue IV Ceftriaxone, she is currently asymptomatic. (3) Acute renal failure: Code(s): N17.9 - Acute kidney failure, unspecified Status: Acute Assessment and Plan: Creatinine is elevated, but stable at 1.80. (4) Renal atrophy: Code(s): N26.1 - Atrophy of kidney (terminal) Status: Acute (5) Staghorn renal calculus: Code(s): N20.0 - Calculus of kidney Status: Acute Assessment and Plan: Patient is not interested in a PCNL. She has no right flank pain and is not having chronic UTI's. (6) Hydronephrosis, left: Code(s): N13.30 - Unspecified hydronephrosis Status: Acute Assessment and Plan: Renal Lasix Scan reveals: Moderately delayed activity clearance from the right kidney consistent with partial obstruction with no hydronephrosis on the prior CT but with increase in the degree of clearance delay compared with the prior study. Also worsening now severely delayed activity clearance from the left kidney which demonstrates worsening hydronephrosis on CT imaging consistent with high-grade obstruction. The degree of obstruction can be overestimated in the setting of supine positioning, dehydration/poor renal function and a severely dilated or atonic collecting system. CT did not indicate a stone obstruction. Will will therefore place a left ureteral stent tomorrow with Dr. Shaikh in the OR. Obtain Consent: Cystoscopy, left ureteroscopy with stent placement, left retrograde pyelogram. Keep NPO after midnight. Subjective Subjective Date/Time Seen: 07/16/21 15:03 Bilateral Hydronephrosis worse/new on the left. Right staghorn stone present. Renal Lasix scan today reveals: Moderately delayed activity clearance from the right kidney consistent with partial obstruction with no hydronephrosis on the prior CT but with increase in the degree of clearance delay compared with the prior study. Also worsening now severely delayed activity clearance from the left kidney which demonstrates worsening hydronephrosis on CT imaging consistent with high-grade obstruction. The degree of obstruction can be overestimated in the setting of supine positioning, dehydration/poor renal function and a severely dilated or atonic collecting system. She states her left flank pain is slightly improved today and denies any urinary symptoms at this time despite having E-Coli in the urine. She remains on Ceftriaxone which is culture sensitive. Review of Systems Cardiovascular: Cardiovascular: Denies chest pain Respiratory: Respiratory: Reports no additional respiratory complaints Gastrointestinal: Gastrointestinal: Denies abdominal pain, Denies nausea and Denies vomiting Genitourinary: Genitourinary: Denies hematuria, Denies dysuria, Denies pelvic pain and Reports flank pain Exam Resp: Effort & Inspection: normal respiratory effort Cardio: Rate: regular rate GI: GI Palp: Yes Soft to palpation and No Tenderness to palpation present (GI) : General: Yes CVA tenderness on the left Extrem: General: no edema Objective Data Vital Signs Vital Signs: Vital Signs - 24 hr 07/15/21 16:00 07/15/21 17:39 07/15/21 18:00 Temperature 97.6 F Pulse Rate 97 101 H Respiratory Rate 16 Blood Pressure 124/83 124/76 Pulse Oximetry 100 07/15/21 20:00 07/15/21 21:16 07/15/21 21:50 Temperature 97.7 F Pulse Rate 103 H Respiratory Rate 18 Blood Pressure 140/82 128/76 Pulse Oximetry 98 97 07/15/21 22:00 07/15/21 23:37 07/16/21 00:00 Temperature 97.8 F Pulse Rate 105 H 103 H 106 H Respiratory Rate 20 20 Blood Pressure 141/76 H Pulse Oximetry 97 97 07/16/21 02:00 07/16/21
[2021-07-16] MEDS: HYDROmorphone HCL INJ (*CRX) 1 MG/ML SYR 0.5 MG IV PUSH ×2 (16:30→23:45)
[2021-07-16] MEDS: buPROPion HCL SR (12 HR) 150 MG TAB PO (17:55)
[2021-07-16] MEDS: BISACODYL 5 MG TABLET EC 20 MG PO (17:55)
[2021-07-16] MEDS: METOPROLOL TARTRATE 25 MG TABLET PO (17:56)
[2021-07-16] MEDS: PEG (High)/E-LYTE SOLN 4,000 ML BTL 4000 ML PO (17:57)
[2021-07-17] VITALS (24 sets, daily range): BP systolic 98–158; BP diastolic 55–107; PULSE 86–124; RESP 12–20; TEMP 36.2–37.1; O2SAT 94–100
[2021-07-17] MEDS: ONDANSETRON INJ 4 MG/2 ML VIAL IV PUSH ×3 (00:47→23:09)
--- NOTE | 2021-07-17 06:35 | WPDHPUPDATE1 ---
History and Physical Update Update Date/Time: 07/17/21 06:35 History and Physical has been reviewed, including an updated exam of the patient. There are NO changes in the patient's condition. Risks, benefits, and alternatives have been discussed and questions answered. Patient agrees to proceed with procedure.
[2021-07-17 07:25] LABS: Basophils Absolute Auto 0.1 K/mm3 (0.0-0.1); Eosinophils Absolute Auto 0.2 K/mm3 (0-0.3); Eosinophils Percent Auto 3.5 % (0-4.4); Hemoglobin 7.8 g/dL (12.0-15.0); Immature Granulocyte Absolute 0.02 K/mm3 (0.00-0.031); Immature Granulocyte Percent A 0.3 % (0-0.5); Lymphocytes Absolute Auto 1.23 K/mm3 (0.9-3.2); Lymphocytes Percent Auto 20.5 % (18.3-44.2); Mean Corpuscular HGB Conc 28.9 g/dl (32-36); Mean Corpuscular Hemoglobin 24.8 pg (26-34); Mean Corpuscular Volume 85.7 fl (80-100); Mean Platelet Volume 10.4 fl (7.4-10.4); Monocytes Absolute Auto 0.6 K/mm3 (0.1-0.6); Monocytes Percent Auto 9.5 % (2.6-8.5); Neutrophils Absolute Auto 3.9 K/mm3 (1.3-6.7); Neutrophils Percent Auto 65.2 % (45.5-73.1); Platelet Count Result 198 k/mm3 (150-375); Red Blood Count 3.15 M/mm3 (4.2-5.4); Red Cell Distribution Width 19.1 % (11.5-14.5)
[2021-07-17 07:35] LABS: Alanine Aminotransferase 13 U/L (4-35); Albumin Level 3.8 g/dL (3.5-5.1); Alkaline Phosphatase 71 U/L (38-126); Anion Gap 10 mmol/L (8-16); Aspartate Amino Transferase 23 U/L (14-36); Bilirubin,Total 0.2 mg/dL (0.2-1.3); Blood Urea Nitrogen 23 mg/dL (7-17); Calcium 8.9 mg/dL (8.4-10.2); Carbon Dioxide 23 mmol/L (22-30); Chloride 105 mmol/L (98-107); Estimated CRCL calculation 22 ml/min; Estimated Glomerular Filt Rate 29; Glucose 101 mg/dL (65-110); Sodium 138 mmol/L (137-145)
[2021-07-17] MEDS: PANTOPRAZOLE SODIUM IV 40 MG VIAL IV PUSH (09:28)
[2021-07-17] MEDS: PRAVASTATIN SODIUM 20 MG TABLET 80 MG PO (09:28)
[2021-07-17] MEDS: buPROPion HCL SR (12 HR) 150 MG TAB PO ×2 (09:28→17:04)
[2021-07-17] MEDS: METOPROLOL TARTRATE 25 MG TABLET PO ×2 (09:29→17:04)
[2021-07-17] MEDS: LEVOTHYROXINE SODIUM 50 MCG TABLET PO (09:29)
[2021-07-17] MEDS: LOSARTAN POTASSIUM 100 MG TABLET PO (09:29)
--- NOTE | 2021-07-17 10:16 | PM.IMPN ---
Progress Note: A&P Assessment and Plan (1) Profound anemia: Code(s): D64.9 - Anemia, unspecified Status: Acute Assessment and Plan: -down to 6.2 hgb on admission -Stool was reportedly Hemoccult negative per ED physician. -She has not noticed blood loss in any form and specifically denies epistaxis, hematemesis, melena, hematochezia, and hematuria. -Iron studies obtained, she has a normal MCV, TIBC, Ferritin, folate, and B12. Slightly elevated serum iron of 188. -She is s/p 2 units PRBCs with a stable hgb of 7.8 -Repeat stool for occult blood negative -Eliquis on hold -GI consult, EGD and colonoscopy planned for today -Continue monitoring CBC (2) Acute renal failure: Code(s): N17.9 - Acute kidney failure, unspecified Status: Acute Assessment and Plan: -She has not had labs done at this facility for over 1.5 years but creatinine today is higher than what she typically runs. -Admitted with creat of 1.8 baseline and she appears to be around 1.0 in the past. -She appears euvolemic though was hypovolemic due to her profound anemia. 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 Large amount of shadowing artifact from right renal pelvis, could be stent or nephrolithiasis. Clinical correlation. 2. Moderate left-sided hydronephrosis, could be obstructive nephropathy. -CT abd/pelv shows known staghorn calculus R kidney and severe left hydronephrosis new from 01/26/17 -lasix renal scan shows worsening now severely delayed activity clearance from the left kidney which demonstrates worsening hydronephrosis on CT imaging consistent with high-grade obstruction. -urology taking her to OR today for cystoscopy, left retrograde pyelography, left ureteroscopy and left stent placement (3) Hydronephrosis, left: Code(s): N13.30 - Unspecified hydronephrosis Status: Acute Assessment and Plan: -as above (4) Back pain: Code(s): M54.9 - Dorsalgia, unspecified Status: Acute Assessment and Plan: -She did have have some reproducible tenderness to palpation in the left mid back. -Pulmonary embolism unlikely as she is on anticoagulation. -Acetaminophen and heating pad available as needed. -due to hydronephrosis vs musculoskeletal? possibly recently passed stone as pain on admission was severe and now minimal? -significantly improved (5) Atrial fibrillation with rapid ventricular response: Code(s): I48.91 - Unspecified atrial fibrillation Status: Acute Assessment and Plan: -sees Dr. Kumar -discussed case with cardiology [employer] Kylah Barbosa who reviewed office notes. Pt used to be on Metoprolol 25 BID but had significant bradycardia. They cut her dose to 12.5 and at one point discontinued it completely. She came into the office recently for an echo but was found to be in rvr with a rate of 140s. She was restarted on the 12.5 BID dose and was referred to EP at [place]. -pt comes in afib rvr with rate up to 130s/140s. Gave Metoprolol 2.5 IV once and restarted her 25 PO BID. -Has been stable in the high 90s, low 100s, but will jump up to 130s often just prior to her next dose of Metoprolol. Reviewed cardiac monitor technician with Dr. Kumar who states to continue the current dose. -likely exacerbated by her profound anemia on arrival -reviewed echo -continue monitoring on telemetry (6) Hypertension: Qualifiers: Hypertension type: essential hypertension Qualified Code(s): I10 - Essential (primary) hypertension Code(s): I10 - Essential (primary) hypertension Status: Acute Assessment and Plan: -stable -Antihypertensives will be reviewed and resumed as appropriate. -Continue to monitor closely. (7) Hypothyroidism: Code(s): E03.9 - Hypothyroidism, unspecified Status: Acute Assessment and Plan: -Continue levothyroxine -TSH elevated bu
[2021-07-17] MEDS: LACTATED RINGERS 1,000 ML 30 ML IV CONT (10:44)
--- NOTE | 2021-07-17 11:13 | WPDANESEPPF ---
Anes - Initial Pre Proc Eval Procedure: Operation Date: 07/17/21 12:00 Proposed Procedures p Cystoscopy, Left Retrograde Pyelogram, Left Ureteroscopy, Left Stent Placement - Nabil Shaikh MD Operation Date: 07/17/21 13:30 Proposed Procedures p Esophagogastroduodenoscopy & Colonoscopy - Jhoan Estes MD Date/Time: 07/17/21 11:13 Surgeon: Karen Blas PA-C Pre Op Diagnosis: Atrial FIB w/RVR, Anemia, Acute Kidney Injury Patient Data Age: 85 Gender: F Height: 1.63 m Weight: 72.3 kg Last Vital Signs Temp 36.5 C 07/17/21 10:56 Pulse 93 07/17/21 10:56 Resp 16 07/17/21 10:56 BP 118/66 07/17/21 10:56 Pulse Ox 100 07/17/21 10:56 Allergies Allergy/AdvReac Type Severity Reaction Status Date / Time enoxaparin Allergy Severe Other Verified 07/14/21 00:10 heparin Allergy Severe Other Verified 07/14/21 00:10 codeine AdvReac Mild Nausea Verified 07/14/21 00:10 Home Medications Medication Instructions Recorded Confirmed Type Belsomra 10 mg PO HS 11/19/19 07/14/21 History bupropion HCl 150 mg PO BID 11/19/19 07/14/21 History cholecalciferol (vitamin D3) 50 mcg PO DAILY 11/19/19 07/14/21 History [Vitamin D3] levothyroxine 50 mcg PO DAILY 11/19/19 07/14/21 History losartan 100 mg PO DAILY 11/19/19 07/14/21 History metoprolol tartrate 25 mg PO BID 11/19/19 07/14/21 History pravastatin 80 mg PO DAILY 11/19/19 07/14/21 History Eliquis 5 mg PO BID 01/19/20 07/14/21 History Laboratory Tests 07/17/21 07/17/21 07:07 07:07 WBC 6.0 K/mm3 K/mm3 (4.5-10.0) RBC 3.15 M/mm3 L M/mm3 (4.2-5.4) Hgb 7.8 g/dL L g/dL (12.0-15.0) Hct 27.0 % L % (37.0-47.0) MCV 85.7 fl fl (80-100) MCH 24.8 pg L pg (26-34) MCHC 28.9 g/dl L g/dl (32-36) RDW 19.1 % H % (11.5-14.5) Plt Count 198 k/mm3 k/mm3 (150-375) MPV 10.4 fl fl (7.4-10.4) Immature Gran % (Auto) 0.3 % % (0-0.5) Neut % (Auto) 65.2 % % (45.5-73.1) Lymph % (Auto) 20.5 % % (18.3-44.2) [place] % (Auto) 9.5 % H % (2.6-8.5) Eos % (Auto) 3.5 % % (0-4.4) Baso % (Auto) 1.0 % % (0.2-1.2) Lymph # (Auto) 1.23 K/mm3 K/mm3 (0.9-3.2) [place] # (Auto) 0.6 K/mm3 K/mm3 (0.1-0.6) Eos # (Auto) 0.2 K/mm3 K/mm3 (0-0.3) Baso # (Auto) 0.1 K/mm3 K/mm3 (0.0-0.1) Abs Immat Gran (auto) 0.02 K/mm3 K/mm3 (0.00-0.031) Absolute Neuts (auto) 3.9 K/mm3 K/mm3 (1.3-6.7) Absolute Nucleated RBC 0.0 K/mm3 K/mm3 (0.0-0.012) Nucleated RBC % 0.0 % % (0.0-0.2) Sodium 138 mmol/L mmol/L (137-145) Potassium 4.0 mmol/L mmol/L (3.4-5.0) Chloride 105 mmol/L mmol/L (98-107) Carbon Dioxide 23 mmol/L mmol/L (22-30) Anion Gap 10 mmol/L mmol/L (8-16) BUN 23 mg/dL H mg/dL (7-17) Creatinine 1.70 mg/dL H mg/dL (0.7-1.0) Estim Creat Clear Calc 22 ml/min ml/min Estimated GFR 29 L (59 - ) Glucose 101 mg/dL mg/dL (65-110) Calcium 8.9 mg/dL mg/dL (8.4-10.2) Total Bilirubin 0.2 mg/dL mg/dL (0.2-1.3) AST 23 U/L U/L (14-36) ALT 13 U/L U/L (4-35) Alkaline Phosphatase 71 U/L U/L (38-126) Total Protein 6.0 g/dL L g/dL (6.3-8.2) Albumin 3.8 g/dL g/dL (3.5-5.1) Patient hx anesthesia problems: none Family hx anesthesia problems: none Results Review: All pre-operative results and documents have been reviewed as part of the pre-operative evaluation. [facility] Past Medical History Medical History Acute on chronic blood loss anemia Atrial fibrillation Cerebral aneurysm Status post coil embolization. 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
--- NOTE | 2021-07-17 12:49 | SUR.OPER ---
specimen sent with radha juan and received in pathology by kaylie
--- NOTE | 2021-07-17 13:14 | WPDANESEPP ---
Anes - Eval Pre Procedure Procedure: Operation Date: 07/17/21 13:30 Proposed Procedures p Esophagogastroduodenoscopy & Colonoscopy - Jhoan Estes MD Date/Time: 07/17/21 13:14 Pre Op Diagnosis: Anemia Patient Data Age: 85 Gender: F Height: 1.63 m Weight: 72.3 kg Last Vital Signs Temp 97.7 F 07/17/21 10:56 Pulse 93 07/17/21 10:56 Resp 16 07/17/21 10:56 BP 118/66 07/17/21 10:56 Pulse Ox 100 07/17/21 10:56 Allergies Allergy/AdvReac Type Severity Reaction Status Date / Time enoxaparin Allergy Severe Other Verified 07/14/21 00:10 heparin Allergy Severe Other Verified 07/14/21 00:10 codeine AdvReac Mild Nausea Verified 07/14/21 00:10 Home Medications Medication Instructions Recorded Confirmed Type Belsomra 10 mg PO HS 11/19/19 07/14/21 History bupropion HCl 150 mg PO BID 11/19/19 07/14/21 History cholecalciferol (vitamin D3) 50 mcg PO DAILY 11/19/19 07/14/21 History [Vitamin D3] levothyroxine 50 mcg PO DAILY 11/19/19 07/14/21 History losartan 100 mg PO DAILY 11/19/19 07/14/21 History metoprolol tartrate 25 mg PO BID 11/19/19 07/14/21 History pravastatin 80 mg PO DAILY 11/19/19 07/14/21 History Eliquis 5 mg PO BID 01/19/20 07/14/21 History Laboratory Tests 07/17/21 07/17/21 07:07 07:07 WBC 6.0 K/mm3 K/mm3 (4.5-10.0) RBC 3.15 M/mm3 L M/mm3 (4.2-5.4) Hgb 7.8 g/dL L g/dL (12.0-15.0) Hct 27.0 % L % (37.0-47.0) MCV 85.7 fl fl (80-100) MCH 24.8 pg L pg (26-34) MCHC 28.9 g/dl L g/dl (32-36) RDW 19.1 % H % (11.5-14.5) Plt Count 198 k/mm3 k/mm3 (150-375) MPV 10.4 fl fl (7.4-10.4) Immature Gran % (Auto) 0.3 % % (0-0.5) Neut % (Auto) 65.2 % % (45.5-73.1) Lymph % (Auto) 20.5 % % (18.3-44.2) [place] % (Auto) 9.5 % H % (2.6-8.5) Eos % (Auto) 3.5 % % (0-4.4) Baso % (Auto) 1.0 % % (0.2-1.2) Lymph # (Auto) 1.23 K/mm3 K/mm3 (0.9-3.2) [place] # (Auto) 0.6 K/mm3 K/mm3 (0.1-0.6) Eos # (Auto) 0.2 K/mm3 K/mm3 (0-0.3) Baso # (Auto) 0.1 K/mm3 K/mm3 (0.0-0.1) Abs Immat Gran (auto) 0.02 K/mm3 K/mm3 (0.00-0.031) Absolute Neuts (auto) 3.9 K/mm3 K/mm3 (1.3-6.7) Absolute Nucleated RBC 0.0 K/mm3 K/mm3 (0.0-0.012) Nucleated RBC % 0.0 % % (0.0-0.2) Sodium 138 mmol/L mmol/L (137-145) Potassium 4.0 mmol/L mmol/L (3.4-5.0) Chloride 105 mmol/L mmol/L (98-107) Carbon Dioxide 23 mmol/L mmol/L (22-30) Anion Gap 10 mmol/L mmol/L (8-16) BUN 23 mg/dL H mg/dL (7-17) Creatinine 1.70 mg/dL H mg/dL (0.7-1.0) Estim Creat Clear Calc 22 ml/min ml/min Estimated GFR 29 L (59 - ) Glucose 101 mg/dL mg/dL (65-110) Calcium 8.9 mg/dL mg/dL (8.4-10.2) Total Bilirubin 0.2 mg/dL mg/dL (0.2-1.3) AST 23 U/L U/L (14-36) ALT 13 U/L U/L (4-35) Alkaline Phosphatase 71 U/L U/L (38-126) Total Protein 6.0 g/dL L g/dL (6.3-8.2) Albumin 3.8 g/dL g/dL (3.5-5.1) Patient hx anesthesia problems: none Family hx anesthesia problems: none Results Review: All pre-operative results and documents have been reviewed as part of the pre-operative evaluation. [facility] Past Medical History Medical History Acute on chronic blood loss anemia Atrial fibrillation Cerebral aneurysm Status post coil embolization. 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 Nonspecific colitis Paroxysmal atrial fibrillation PONV (postoperative nausea and vomiting) Pulmonary embolism Stone, kidney Surgical History Surgical History (Reviewed 07/17/21
[2021-07-17] MEDS: fentaNYL CITRATE INJ (*CRX) 100 MCG/2 ML VIAL 25 MCG IV PUSH ×4 (13:21→13:40)
--- NOTE | 2021-07-17 13:21 | W.PM.PROC2 ---
Procedure Note - Detailed Date of Procedure 07/17/21 Pre-op Diagnosis Left hydronephrosis Post-op Diagnosis same Procedure Performed Cystoscopy, left retrograde pyelogram, left ureteroscopy, left stent placement Surgeon Nabil Shaikh MD Anesthesia general Description of Procedure Patient is brought to the op suite she has prepped draped in routine sterile fashion while in dorsal lithotomy position. Systemic sedation is administered the per the anesthesia department. Cystoscopy is undertaken with a 19 F rigid cystoscope. Urine was collected for cytology. Urethra and bladder neck were endoscopically normal. Eight F bulb-tipped catheter was used to obtain a left retrograde pyelogram. The distal ureter is normal but there is smooth concentric narrowing for a short distance for approximately 1-2 cm at the left ureteropelvic junction. 0.035 in glidewire was advanced into the left renal pelvis. Flexible ureteroscopy was undertaken with a 7.5 F digital flexible ureteral scope. Collecting system is endoscopically normal. On inspecting the ureteropelvic junction I immediately see retroperitoneal fat. Despite exhaustive efforts I was unable to reliably reintubate the collecting system. The ureter is endoscopically normal, without evidence of hyperemia neoplasm or additional points of obstruction.. Subsequent retrograde pyelogram showed extravasation into the retroperitoneum. I did place a double-J ureteral stent. The proximal portion of this coiled but I can say is reliably in the renal pelvis. Stat CT scan will be obtained postoperatively and, if need be, arrangements were placement of a percutaneous nephrolithotomy be obtained. Urine Output 400 Drains Yes Packing No Pathology none sent Complications No immediate complications Condition stable Disposition PACU
[2021-07-17 13:30] LABS: Partial Thromboplastin Time 30.7 SECONDS (22.3-36.8); Prothrombin Time 13.2 Seconds (11.1-14.7)
--- NOTE | 2021-07-17 13:49 | SUR.PHASEI ---
RN is taking patient to CT now.
[2021-07-17] MEDS: HYDROmorphone HCL INJ (*CRX) 1 MG/ML SYR 0.5 MG IV PUSH (14:28)
--- NOTE | 2021-07-17 14:32 | SUR.PHASEI ---
Patient is going from CT back to IMU. RN tried to call floor RN to give report on what took place in surgery and PACU. RN is waiting for nurse to call back. RN contacted Dr. Shaikh' office to have him put in transfer orders back to IMU.
--- NOTE | 2021-07-17 16:22 | WPDGIPROGNO ---
Progress Note: A&P Assessment and Plan (1) Acute on chronic blood loss anemia: Code(s): D62 - Acute posthemorrhagic anemia Status: Acute Assessment and Plan: egd and colonoscopy unable to complete today because had complication after cystoscopy and she had to undergo emergent placement of nephrostomy tube holding procedures for now, will see clinical course before making a decision (2) Intraoperative ureteral injury: Code(s): N99.81 - Other intraoperative complications of genitourinary system Status: Acute Assessment and Plan: by urology, s/p nephrostomy tube now (3) Hydronephrosis, left: Code(s): N13.30 - Unspecified hydronephrosis Status: Acute Assessment and Plan: noted elevated creatinine and urology ordered kidney scan, pending (4) Acute renal failure: Code(s): N17.9 - Acute kidney failure, unspecified Status: Acute Assessment and Plan: creat 1.8 (5) E coli infection: Code(s): A49.8 - Other bacterial infections of unspecified site Status: Acute Assessment and Plan: + urine culture, on abx (6) 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 I decided to cancel scopes as she is still recovering from all these interventions. Review of Systems Review of Systems: All systems reviewed & are unremarkable except as noted in HPI and below Exam Const: General: no acute distress HENMT: General nose exam: Normal nares present Eyes: Sclera: sclerae normal Neck: Neck: supple Resp: Auscultation: clear to auscultation bilaterally Cardio: Rate: regular rate GI: GI Palp: Yes Soft to palpation Auscultation: normal bowel sounds : Other: nephrostomy tube Skin: General skin exam: no rashes or lesions noted Neuro: Speech: normal speech Extrem: General: normal to inspection Objective Data Vital Signs Vital Signs: Vital Signs - 24 hr 07/16/21 19:52 07/16/21 19:56 07/16/21 19:57 Temperature 96.9 F L Pulse Rate 16 L Respiratory Rate 95 H Blood Pressure 150/87 H 150/87 H 119/50 L Pulse Oximetry 07/16/21 20:00 07/16/21 22:00 07/16/21 23:53 Temperature 97.9 F Pulse Rate 128 H 103 H 105 H Respiratory Rate 20 15 Blood Pressure 117/73 Pulse Oximetry 94 100 07/17/21 00:00 07/17/21 02:00 07/17/21 03:36 Temperature Pulse Rate 105 H 111 H 109 H Respiratory Rate 15 18 Blood Pressure Pulse Oximetry 100 100 07/17/21 04:00 07/17/21 05:34 07/17/21 05:52 Temperature 98 F Pulse Rate 124 H 112 H Respiratory Rate 16 Blood Pressure 115/73 Pulse Oximetry 98 97 07/17/21 08:00 07/17/21 08:33 07/17/21 10:00 Temperature 97.3 F L Pulse Rate 106 H 94 Respiratory Rate 12 Blood Pressure 132/67 117/57 L Pulse Oximetry 97 07/17/21 10:56 07/17/21 12:00 07/17/21 12:43 Temperature 97.7 F 97.7 F Pulse Rate 93 95 90 Respiratory Rate 16 19 Blood Pressure 118/66 126/71 Pulse Oximetry 100 99 07/17/21 12:55 07/17/21 13:10 07/17/21 13:25 Temperature Pulse Rate 101 H 102 H 100 Respiratory Rate 14 20 14 Blood Pressure 127/83 147/93 H 158/107 H Pulse Oximetry 100 98 96 07/17/21 13:40 Temperature Pulse Rate 99 Respiratory Rate 14 Blood Pressure 152/98 H Pulse Oximetry 94 Intake/Output Intake/Output: Intake & Output 07/14/21 07/15/21 07/16/21 07/17/21 23:59 23:59 23:59 23:59 Intake Total 8104 299 9617 3425 Output Total 1250 2200 1200 400 Balance 270 -1077 347 6067 Meds/Results Medications: Active Medications Gener
[2021-07-17] MEDS: HYDROcodone/acetaminophen (*CRX) 5-325 MG TABLET 1 TAB PO (17:03)
[2021-07-17] MEDS: CHOLECALCIFEROL 1,000 UNITS TABLET 2000 UNITS PO (17:04)
[2021-07-17] MEDS: HYDROmorphone HCL INJ (*CRX) 1 MG/ML SYR IV PUSH (22:00)
[2021-07-18] VITALS (19 sets, daily range): BP systolic 96–129; BP diastolic 51–89; PULSE 100–177; RESP 16–20; TEMP 36.4–37.3; O2SAT 95–100
[2021-07-18 06:44] LABS: Basophils Percent Auto 0.3 % (0.2-1.2); Eosinophils Absolute Auto 0.1 K/mm3 (0-0.3); Hematocrit 24.3 % (37.0-47.0); Hemoglobin 7.2 g/dL (12.0-15.0); Immature Granulocyte Absolute 0.03 K/mm3 (0.00-0.031); Immature Granulocyte Percent A 0.4 % (0-0.5); Lymphocytes Absolute Auto 0.74 K/mm3 (0.9-3.2); Lymphocytes Percent Auto 10.4 % (18.3-44.2); Mean Corpuscular HGB Conc 29.6 g/dl (32-36); Mean Corpuscular Hemoglobin 25.4 pg (26-34); Mean Corpuscular Volume 85.6 fl (80-100); Mean Platelet Volume 10.1 fl (7.4-10.4); Monocytes Absolute Auto 0.7 K/mm3 (0.1-0.6); Monocytes Percent Auto 9.8 % (2.6-8.5); Neutrophils Absolute Auto 5.6 K/mm3 (1.3-6.7); Neutrophils Percent Auto 78.1 % (45.5-73.1); Platelet Count Result 158 k/mm3 (150-375); Red Blood Count 2.84 M/mm3 (4.2-5.4); Red Cell Distribution Width 19.2 % (11.5-14.5); White Blood Count 7.1 K/mm3 (4.5-10.0)
[2021-07-18] MEDS: LEVOTHYROXINE SODIUM 50 MCG TABLET PO (06:53)
[2021-07-18 06:58] LABS: Alanine Aminotransferase 11 U/L (4-35); Albumin Level 3.4 g/dL (3.5-5.1); Alkaline Phosphatase 70 U/L (38-126); Anion Gap 5 mmol/L (8-16); Aspartate Amino Transferase 19 U/L (14-36); Bilirubin,Total 0.5 mg/dL (0.2-1.3); Blood Urea Nitrogen 21 mg/dL (7-17); Calcium 8.9 mg/dL (8.4-10.2); Carbon Dioxide 24 mmol/L (22-30); Chloride 107 mmol/L (98-107); Estimated CRCL calculation 23 ml/min; Estimated Glomerular Filt Rate 31; Glucose 103 mg/dL (65-110); Potassium 4.3 mmol/L (3.4-5.0); Sodium 136 mmol/L (137-145)
--- NOTE | 2021-07-18 08:15 | P.PNAN_ITS ---
Anes - Prog Note Post-Op Date/Time: 07/18/21 08:15 Cardiovascular status: normal Respiratory status: normal Airway patency: baseline Mental status: baseline Post-Op hydration status: normal Vital Signs: Last Vital Signs Temp 36.4 C L 07/18/21 04:00 Pulse 109 H 07/18/21 06:00 Resp 16 07/18/21 04:00 BP 107/89 07/18/21 04:00 Pulse Ox 98 07/18/21 04:00 Pain Score (VAS): 0 I/O: Intake & Output 07/17/21 07/18/21 07/18/21 23:59 07:59 15:59 Intake Total 840 500 Output Total 150 100 Balance 690 400 Laboratory Tests 07/18/21 06:31 07/17/21 07/18/21 07/18/21 13:13 06:31 06:31 WBC Pending RBC Pending Hgb Pending Hct Pending MCV Pending MCH Pending MCHC Pending RDW Pending Plt Count Pending MPV Pending Immature Gran % (Auto) Pending Neut % (Auto) Pending Lymph % (Auto) Pending [place] % (Auto) Pending Eos % (Auto) Pending Baso % (Auto) Pending Lymph # (Auto) Pending [place] # (Auto) Pending Eos # (Auto) Pending Baso # (Auto) Pending Abs Immat Gran (auto) Pending Absolute Neuts (auto) Pending Absolute Nucleated RBC Pending Nucleated RBC % Pending PT 13.2 D INR 1.0 APTT 30.7 Sodium 136 L Potassium 4.3 Chloride 107 Carbon Dioxide 24 Anion Gap 5 L BUN 21 H Creatinine 1.60 H Estim Creat Clear Calc 23 Estimated GFR 31 L Glucose 103 Calcium 8.9 Total Bilirubin 0.5 AST 19 ALT 11 Alkaline Phosphatase 70 Total Protein 6.0 L Albumin 3.4 L Post-procedural complaints: none Patient Feedback: Patient satisfied with anesthetic care.
[2021-07-18] MEDS: CHOLECALCIFEROL 1,000 UNITS TABLET 2000 UNITS PO (08:35)
[2021-07-18] MEDS: LOSARTAN POTASSIUM 100 MG TABLET PO (08:35)
[2021-07-18] MEDS: METOPROLOL TARTRATE 25 MG TABLET PO ×2 (08:35→17:09)
[2021-07-18] MEDS: buPROPion HCL SR (12 HR) 150 MG TAB PO ×2 (08:35→17:09)
[2021-07-18] MEDS: PANTOPRAZOLE SODIUM IV 40 MG VIAL IV PUSH (08:35)
[2021-07-18] MEDS: PRAVASTATIN SODIUM 20 MG TABLET 80 MG PO (08:35)
[2021-07-18 09:31] LABS: Hypochromasia 1+ (NORMAL); Platelet Estimate Adequate (Adequate)
--- NOTE | 2021-07-18 10:46 | PM.IMPN ---
Progress Note: A&P Assessment and Plan (1) Profound anemia: Code(s): D64.9 - Anemia, unspecified Status: Acute Assessment and Plan: -down to 6.2 hgb on admission -Stool was reportedly Hemoccult negative per ED physician. -She has not noticed blood loss in any form and specifically denies epistaxis, hematemesis, melena, hematochezia, and hematuria. -Iron studies obtained, she has a normal MCV, TIBC, Ferritin, folate, and B12. Slightly elevated serum iron of 188. -She is s/p 2 units PRBCs with a stable hgb of 7.8 -Repeat stool for occult blood negative -Eliquis on hold -GI consult -EGD and colonoscopy planned for yesterday however this was postponed due to ureteral stent complication -Continue monitoring CBC (2) Acute renal failure: Code(s): N17.9 - Acute kidney failure, unspecified Status: Acute Assessment and Plan: -She has not had labs done at this facility for over 1.5 years but creatinine today is higher than what she typically runs. -Admitted with creat of 1.8 baseline and she appears to be around 1.0 in the past. -She appears euvolemic though was hypovolemic due to her profound anemia. 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 Large amount of shadowing artifact from right renal pelvis, could be stent or nephrolithiasis. Clinical correlation. 2. Moderate left-sided hydronephrosis, could be obstructive nephropathy. -CT abd/pelv shows known staghorn calculus R kidney and severe left hydronephrosis new from 01/26/17 -[facility]ix renal scan shows worsening now severely delayed activity clearance from the left kidney which demonstrates worsening hydronephrosis on CT imaging consistent with high-grade obstruction. -urology took her to OR for cystoscopy, left retrograde pyelography, left ureteroscopy and left stent placement. Due to a complication pt was taken for emergent nephrostomy tube placement and stent was removed. (3) Hydronephrosis, left: Code(s): N13.30 - Unspecified hydronephrosis Status: Acute Assessment and Plan: -as above -nephrostomy in place -appreciate urology consult (4) Back pain: Code(s): M54.9 - Dorsalgia, unspecified Status: Acute Assessment and Plan: -She did have have some reproducible tenderness to palpation in the left mid back. -Pulmonary embolism unlikely as she is on anticoagulation. -Acetaminophen and heating pad available as needed. -due to hydronephrosis vs musculoskeletal? possibly recently passed stone as pain on admission was severe and now minimal? -significantly improved (5) Atrial fibrillation with rapid ventricular response: Code(s): I48.91 - Unspecified atrial fibrillation Status: Acute Assessment and Plan: -sees Dr. Kumar -discussed case with cardiology [employer] DES[employer] Kylah Barbosa who reviewed office notes. Pt used to be on Metoprolol 25 BID but had significant bradycardia. They cut her dose to 12.5 and at one point discontinued it completely. She came into the office recently for an echo but was found to be in rvr with a rate of 140s. She was restarted on the 12.5 BID dose and was referred to EP at [facility]. -pt comes in afib rvr with rate up to 130s/140s. Gave Metoprolol 2.5 IV once and restarted her 25 PO BID. -Has been stable in the high 90s, low 100s, but will jump up to 130s often just prior to her next dose of Metoprolol. Reviewed education director with Dr. Kumar who states to continue the current dose. -likely exacerbated by her profound anemia on arrival -reviewed echo -continue monitoring on telemetry (6) Hypertension: Qualifiers: Hypertension type: essential hypertension Qualified Code(s): I10 - Essential (primary) hypertension Code(s): I10 - Essential (primary) hypertension Status: Acute Assessment and Plan: -stable -Antihypertensives will be reviewed and resumed as appropriate
--- NOTE | 2021-07-18 11:34 | WPDGIPROGNO ---
Progress Note: A&P Assessment and Plan (1) Profound anemia: Code(s): D64.9 - Anemia, unspecified Status: Acute Assessment and Plan: admitted with symptomatic anemia that required blood transfusion but no overt gib procedures cancelled yesterday after she had complication with urological intervention patient still would like to find out cause of significant anemia, probably we can do scopes in 2-3 days (2) Paroxysmal atrial fibrillation: Code(s): I48.0 - Paroxysmal atrial fibrillation Status: Acute Assessment and Plan: blood thinner on hold because anemia (3) Intraoperative ureteral injury: Code(s): N99.81 - Other intraoperative complications of genitourinary system Status: Acute Assessment and Plan: s/p nephrostomy tube, by urology (4) Hydronephrosis, left: Code(s): N13.30 - Unspecified hydronephrosis Status: Acute (5) Acute renal failure: Code(s): N17.9 - Acute kidney failure, unspecified Status: Acute Assessment and Plan: creatinine 1.6-1.8 Subjective Date/time seen: 07/18/21 11:34 Interval history: egd and colonoscopy cancelled yesterday after she had ureteral complication and required nephrostomy tube. She is doing ok, denies overt gib. She says that still would be willing to have scopes but prefers while she is here in the hospital Review of Systems Review of Systems: All systems reviewed & are unremarkable except as noted in HPI and below Exam Const: General: comfortable and no acute distress HENMT: General nose exam: Normal nares present Eyes: General: appearance normal, both eyes and all related structures Neck: Neck: no JVD Resp: Auscultation: clear to auscultation bilaterally Cardio: Rate: regular rate Rhythm: regular rhythm GI: Inspection: non-distended GI Palp: Yes Soft to palpation and No Guarding due to palpation present (GI) Auscultation: normal bowel sounds : Other: nephrostomy tube Skin: General skin exam: normal color Neuro: Speech: normal speech Extrem: General: normal to inspection Psych: Mental Status: mental status grossly normal Objective Data Vital Signs Vital Signs: Vital Signs - 24 hr 07/17/21 12:00 07/17/21 12:43 07/17/21 12:55 Temperature 97.7 F Pulse Rate 95 90 101 H Respiratory Rate 19 14 Blood Pressure 126/71 127/83 Pulse Oximetry 99 100 07/17/21 13:10 07/17/21 13:25 07/17/21 13:40 Temperature Pulse Rate 102 H 100 99 Respiratory Rate 20 14 14 Blood Pressure 147/93 H 158/107 H 152/98 H Pulse Oximetry 98 96 94 07/17/21 16:00 07/17/21 18:00 07/17/21 19:40 Temperature 97.2 F L 98.8 F Pulse Rate 96 110 H 103 H Respiratory Rate 18 16 Blood Pressure 120/67 98/66 L Pulse Oximetry 94 95 07/17/21 19:41 07/17/21 19:42 07/17/21 20:00 Temperature Pulse Rate 94 Respiratory Rate Blood Pressure 122/77 114/66 Pulse Oximetry 07/17/21 22:00 07/17/21 23:40 07/18/21 00:00 Temperature 97.5 F L Pulse Rate 107 H 122 H 118 H Respiratory Rate 16 Blood Pressure 115/81 Pulse Oximetry 97 07/18/21 02:00 07/18/21 04:00 07/18/21 06:00 Temperature 97.5 F L Pulse Rate 100 107 H 109 H Respiratory Rate 16 Blood Pressure 107/89 Pulse Oximetry 98 07/18/21 08:00 07/18/21 08:32 07/18/21 10:00 Temperature 98.0 F Pulse Rate 117 H 124 H 111 H Respiratory Rate 18 Blood Pressure 123/70 Pulse Oximetry 96 Intake/Output Intake/Output: Intake & Output 07/15/21 07/16/21 07/17/21 07/18/21 23:59 23:59 23:59 23:59 Intake Total 290 1380 4315 740 Output Total 2200 1200 550 200 Balance -7395 981 3628 540 Meds/Results Medications: Active Medications Generic Name Dose Route Start Last Admin Trade Name Freq PRN Reason Stop Dose Admin Acetaminophen 650 mg 07/13/21 20:22 Acetaminophen 325 Mg Tablet PO Q6H PRN Mild Pain (1-3) or Fever Hydrocodone Bitart/Acetaminophen 1 tab 07/17/21 16:16
--- NOTE | 2021-07-18 12:13 | WPDUROPN2 ---
Progress Note: A&P Assessment and Plan (1) E coli infection: Code(s): A49.8 - Other bacterial infections of unspecified site Status: Acute (2) Intraoperative ureteral injury: Code(s): N99.81 - Other intraoperative complications of genitourinary system Status: Acute (3) Acute renal failure: Code(s): N17.9 - Acute kidney failure, unspecified Status: Acute (4) Staghorn renal calculus: Code(s): N20.0 - Calculus of kidney Status: Acute (5) Hydronephrosis, left: Code(s): N13.30 - Unspecified hydronephrosis Status: Acute Additional Plan 1) anticipate left nephrostogram on Tuesday07/20/21. Hopefully antegrade placement of internal ureter stent will occur. Continue left PCN to gravity drainage for now Subjective Subjective Date/Time Seen: 07/18/21 12:13 Doing well. No issues with the left percutaneous nephrostomy tube. Denies pain. Exam Const: General: no acute distress Eyes: General: appearance normal, both eyes and all related structures Neck: Neck: no JVD Resp: Effort & Inspection: normal respiratory effort GI: GI Palp: Yes Soft to palpation : Other: Left perc (intact) draining blood tinged urine Skin: General skin exam: normal color Neuro: General: gait normal Psych: Mental Status: mental status grossly normal Affect: normal affect Objective Data Vital Signs Vital Signs: Vital Signs - 24 hr 07/17/21 12:43 07/17/21 12:55 07/17/21 13:10 Temperature 36.5 C Pulse Rate 90 101 H 102 H Respiratory Rate 19 14 20 Blood Pressure 126/71 127/83 147/93 H Pulse Oximetry 99 100 98 07/17/21 13:25 07/17/21 13:40 07/17/21 16:00 Temperature 36.2 C L Pulse Rate 100 99 96 Respiratory Rate 14 14 18 Blood Pressure 158/107 H 152/98 H 120/67 Pulse Oximetry 96 94 94 07/17/21 18:00 07/17/21 19:40 07/17/21 19:41 Temperature 37.1 C Pulse Rate 110 H 103 H Respiratory Rate 16 Blood Pressure 98/66 L 122/77 Pulse Oximetry 95 07/17/21 19:42 07/17/21 20:00 07/17/21 22:00 Temperature Pulse Rate 94 107 H Respiratory Rate Blood Pressure 114/66 Pulse Oximetry 07/17/21 23:40 07/18/21 00:00 07/18/21 02:00 Temperature 36.4 C L Pulse Rate 122 H 118 H 100 Respiratory Rate 16 Blood Pressure 115/81 Pulse Oximetry 97 07/18/21 04:00 07/18/21 06:00 07/18/21 08:00 Temperature 36.4 C L Pulse Rate 107 H 109 H 117 H Respiratory Rate 16 Blood Pressure 107/89 Pulse Oximetry 98 07/18/21 08:32 07/18/21 10:00 Temperature 36.7 C Pulse Rate 124 H 111 H Respiratory Rate 18 Blood Pressure 123/70 Pulse Oximetry 96 Intake/Output Intake/Output: Intake & Output 07/15/21 07/16/21 07/17/21 07/18/21 23:59 23:59 23:59 23:59 Intake Total 290 1380 4315 740 Output Total 2200 1200 550 200 Balance -2866 984 8265 540 Meds/Results Medications: Active Medications Generic Name Dose Route Start Last Admin Trade Name Freq PRN Reason Stop Dose Admin Acetaminophen 650 mg 07/13/21 20:22 Acetaminophen 325 Mg Tablet PO Q6H PRN Mild Pain (1-3) or Fever Hydrocodone Bitart/Acetaminophen 1 tab 07/17/21 16:16 07/17/21 17:03 Hydrocodone/Acetaminophen (*Crx) 5-325 Mg Tablet PO 1 tab Q4H PRN Administration Pain Rated 4-6 Bisacodyl 5 mg 07/14/21 18:51 07/15/21 15:26 Bisacodyl 5 Mg Tablet Ec PO 5 mg DAILY PRN Administration Constipation Bupropion HCl 150 mg 07/14/21 09:00 07/18/21 08:35 Bupropion Hcl Sr (12 Hr) 150 Mg Tab PO 150 mg BID RUY Administration Fentanyl Citrate 25 mcg 07/17/21 07:13 07/17/21 13:40 Fentanyl Citrate Inj (*Crx) 100 Mcg/2 Ml Vial IV PUSH 25 mcg Q2M PRN Administration Pain Hydromorphone HCl 1 mg 07/17/21 16:16 07/17/21 22:00 Hydromorphone Hcl Inj (*Crx) 1 Mg/Ml Syr IV PUSH 1 mg Q4H PRN Administration Pain Rated 7-10 Ceftriaxone Sodium/Dextrose 1 gm in 50 mls @ 100 mls/hr 07/14/21 15:00 07/17/21 1
[2021-07-18] MEDS: HYDROmorphone HCL INJ (*CRX) 1 MG/ML SYR IV PUSH (22:20)
[2021-07-19] VITALS (15 sets, daily range): BP systolic 121–144; BP diastolic 61–93; PULSE 89–124; RESP 14–18; TEMP 36.1–36.8; O2SAT 94–98; BMI 29.2
[2021-07-19 06:11] LABS: Basophils Percent Auto 0.5 % (0.2-1.2); Eosinophils Absolute Auto 0.2 K/mm3 (0-0.3); Eosinophils Percent Auto 3.7 % (0-4.4); Hematocrit 24.2 % (37.0-47.0); Hemoglobin 7.2 g/dL (12.0-15.0); Immature Granulocyte Absolute 0.01 K/mm3 (0.00-0.031); Immature Granulocyte Percent A 0.2 % (0-0.5); Lymphocytes Absolute Auto 1.01 K/mm3 (0.9-3.2); Lymphocytes Percent Auto 17.7 % (18.3-44.2); Mean Corpuscular HGB Conc 29.8 g/dl (32-36); Mean Corpuscular Hemoglobin 25.4 pg (26-34); Mean Corpuscular Volume 85.2 fl (80-100); Mean Platelet Volume 10.3 fl (7.4-10.4); Monocytes Absolute Auto 0.6 K/mm3 (0.1-0.6); Monocytes Percent Auto 10.8 % (2.6-8.5); Neutrophils Absolute Auto 3.8 K/mm3 (1.3-6.7); Neutrophils Percent Auto 67.1 % (45.5-73.1); Platelet Count Result 139 k/mm3 (150-375); Red Blood Count 2.84 M/mm3 (4.2-5.4); White Blood Count 5.7 K/mm3 (4.5-10.0)
[2021-07-19 06:24] LABS: Alanine Aminotransferase 11 U/L (4-35); Albumin Level 3.2 g/dL (3.5-5.1); Alkaline Phosphatase 64 U/L (38-126); Anion Gap 8 mmol/L (8-16); Aspartate Amino Transferase 18 U/L (14-36); Bilirubin,Total 0.3 mg/dL (0.2-1.3); Blood Urea Nitrogen 23 mg/dL (7-17); Calcium 8.5 mg/dL (8.4-10.2); Carbon Dioxide 24 mmol/L (22-30); Chloride 107 mmol/L (98-107); Estimated CRCL calculation 25 ml/min; Estimated Glomerular Filt Rate 33; Glucose 97 mg/dL (65-110); Potassium 4.2 mmol/L (3.4-5.0); Sodium 139 mmol/L (137-145)
[2021-07-19] MEDS: buPROPion HCL SR (12 HR) 150 MG TAB PO ×2 (08:43→16:49)
[2021-07-19] MEDS: CHOLECALCIFEROL 1,000 UNITS TABLET 2000 UNITS PO (08:43)
[2021-07-19] MEDS: LEVOTHYROXINE SODIUM 50 MCG TABLET PO (08:44)
[2021-07-19] MEDS: LOSARTAN POTASSIUM 100 MG TABLET PO (08:44)
[2021-07-19] MEDS: METOPROLOL TARTRATE TAB 25 MG, METOPROLOL TARTRATE TAB 12.5 MG 37.5 MG PO ×2 (08:44→21:18)
[2021-07-19] MEDS: PRAVASTATIN SODIUM 20 MG TABLET 80 MG PO (08:44)
[2021-07-19] MEDS: PANTOPRAZOLE SODIUM IV 40 MG VIAL IV PUSH (08:45)
--- NOTE | 2021-07-19 10:43 | WPDGIPROGNO ---
Progress Note: A&P Assessment and Plan (1) Profound anemia: Code(s): D64.9 - Anemia, unspecified Status: Acute Assessment and Plan: admitted with symptomatic anemia that required blood transfusion but no overt gib procedures postponed after she had complication with urological intervention urology is planing to proceed with left nephrostogram and possible antegrade placement of internal ureter stent patient still would like to find out cause of symptomatic anemia, scopes maybe tuesday or tuesday after urological procedure (2) Paroxysmal atrial fibrillation: Code(s): I48.0 - Paroxysmal atrial fibrillation Status: Acute Assessment and Plan: blood thinner on hold because anemia (3) Intraoperative ureteral injury: Code(s): N99.81 - Other intraoperative complications of genitourinary system Status: Acute Assessment and Plan: s/p nephrostomy tube, by urology (4) Hydronephrosis, left: Code(s): N13.30 - Unspecified hydronephrosis Status: Acute (5) Acute renal failure: Code(s): N17.9 - Acute kidney failure, unspecified Status: Acute Assessment and Plan: creatinine 1.5 Subjective Date/time seen: 07/19/21 10:43 Interval history: no issues, she is comfortable. Nephrostomy tube draining Review of Systems Review of Systems: All systems reviewed & are unremarkable except as noted in HPI and below Exam Const: General: comfortable and no acute distress HENMT: General nose exam: Normal nares present Eyes: General: appearance normal, both eyes and all related structures Neck: Neck: no JVD Resp: Auscultation: clear to auscultation bilaterally Cardio: Rate: regular rate Rhythm: regular rhythm GI: Inspection: non-distended GI Palp: Yes Soft to palpation and No Guarding due to palpation present (GI) Auscultation: normal bowel sounds : Other: nephrostomy tube with blood tinged urine Skin: General skin exam: normal color Neuro: Speech: normal speech Extrem: General: normal to inspection Psych: Mental Status: mental status grossly normal Objective Data Vital Signs Vital Signs: Vital Signs - 24 hr 07/18/21 12:00 07/18/21 12:54 07/18/21 12:55 Temperature 98.6 F Pulse Rate 114 H 101 H 108 H Respiratory Rate 18 Blood Pressure 129/78 116/57 L Pulse Oximetry 100 07/18/21 14:00 07/18/21 16:00 07/18/21 16:27 Temperature 98.1 F Pulse Rate 110 H 123 H 109 H Respiratory Rate 17 Blood Pressure 117/51 L Pulse Oximetry 97 07/18/21 19:34 07/18/21 19:53 07/18/21 19:54 Temperature 97.9 F Pulse Rate 121 H Respiratory Rate 20 Blood Pressure 113/64 114/64 110/67 Pulse Oximetry 100 07/18/21 19:55 07/18/21 20:00 07/18/21 23:52 Temperature 99.2 F Pulse Rate 124 H 117 H Respiratory Rate 16 Blood Pressure 96/61 L 125/74 Pulse Oximetry 95 07/19/21 00:00 07/19/21 02:50 07/19/21 04:00 Temperature 97.8 F Pulse Rate 121 H 103 H Respiratory Rate 16 Blood Pressure 129/90 Pulse Oximetry 94 98 07/19/21 08:00 07/19/21 08:01 07/19/21 08:02 Temperature 97.9 F Pulse Rate 106 H Respiratory Rate 14 Blood Pressure 144/74 H 126/93 H 142/76 H Pulse Oximetry 95 Intake/Output Intake/Output: Intake & Output 07/16/21 07/17/21 07/18/21 07/19/21 23:59 23:59 23:59 23:59 Intake Total 1380 4315 1770 640 Output Total 1200 550 700 275 Balance 180 3765 1070 365 Meds/Results Medications: Active Medications Generic Name Dose Route Start Last Admin Trade Name Freq PRN Reason Stop Dose Admin Acetaminophen 650 mg 07/13/21 20:22 Acetaminophen 325 Mg Tablet PO Q6H PRN Mild Pain (1-3) or Fever Hydrocodone Bitart/Acetaminophen 1 tab 07/17/21 16:16 07/17/21 17:03 Hydrocodone/Acetaminophen (*Crx) 5-325 Mg Tablet PO 1 tab Q4H PRN Administration Pain Rated 4-6 Bisacodyl 5 mg 07/14/21 18:51 07/15/21 15:26 Bisacodyl 5 Mg Tablet Ec PO 5 m
--- NOTE | 2021-07-19 13:16 | PM.IMPN ---
Progress Note: A&P Assessment and Plan (1) Profound anemia: Code(s): D64.9 - Anemia, unspecified Status: Acute Assessment and Plan: -down to 6.2 hgb on admission -Stool was reportedly Hemoccult negative per ED physician. -She has not noticed blood loss in any form and specifically denies epistaxis, hematemesis, melena, hematochezia, and hematuria. -Iron studies obtained, she has a normal MCV, TIBC, Ferritin, folate, and B12. Slightly elevated serum iron of 188. -She is s/p 2 units PRBCs with a stable hgb of 7.8 -Repeat stool for occult blood negative -Eliquis on hold -GI consult -EGD and colonoscopy planned for 07/17/21 however this was postponed due to ureteral stent complication -Continue monitoring CBC (2) Acute renal failure: Code(s): N17.9 - Acute kidney failure, unspecified Status: Acute Assessment and Plan: -She has not had labs done at this facility for over 1.5 years but creatinine today is higher than what she typically runs. -Admitted with creat of 1.8 baseline and she appears to be around 1.0 in the past. -She appears euvolemic though was hypovolemic due to her profound anemia. 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 Large amount of shadowing artifact from right renal pelvis, could be stent or nephrolithiasis. Clinical correlation. 2. Moderate left-sided hydronephrosis, could be obstructive nephropathy. -CT abd/pelv shows known staghorn calculus R kidney and severe left hydronephrosis new from 01/26/17 -[facility] renal scan shows worsening now severely delayed activity clearance from the left kidney which demonstrates worsening hydronephrosis on CT imaging consistent with high-grade obstruction. -urology took her to OR for cystoscopy, left retrograde pyelography, left ureteroscopy and left stent placement. Due to a complication pt was taken for emergent nephrostomy tube placement and stent was removed. -plan is for left nephrostogram on Tuesday07/20/21. Hopefully antegrade placement of internal ureter stent will occur. Continue left PCN to gravity drainage for now (3) Hydronephrosis, left: Code(s): N13.30 - Unspecified hydronephrosis Status: Acute Assessment and Plan: -as above -nephrostomy in place -appreciate urology consult (4) Back pain: Code(s): M54.9 - Dorsalgia, unspecified Status: Acute Assessment and Plan: -She did have have some reproducible tenderness to palpation in the left mid back. -Pulmonary embolism unlikely as she is on anticoagulation. -Acetaminophen and heating pad available as needed. -due to hydronephrosis vs musculoskeletal? possibly recently passed stone as pain on admission was severe and now minimal? -significantly improved (5) Atrial fibrillation with rapid ventricular response: Code(s): I48.91 - Unspecified atrial fibrillation Status: Acute Assessment and Plan: -sees Dr. Kumar -discussed case with cardiology [employer]CH[employer] Kylah Barbosa who reviewed office notes. Pt used to be on Metoprolol 25 BID but had significant bradycardia. They cut her dose to 12.5 and at one point discontinued it completely. She came into the office recently for an echo but was found to be in rvr with a rate of 140s. She was restarted on the 12.5 BID dose and was referred to EP at [facility]. -pt comes in afib rvr with rate up to 130s/140s. Gave Metoprolol 2.5 IV once and restarted her 25 PO BID. -Has been stable in the high 90s, low 100s, but will jump up to 130s often just prior to her next dose of Metoprolol. Reviewed security monitor with Dr. Kumar who states to continue the current dose. -likely exacerbated by her profound anemia on arrival -reviewed echo -continue monitoring on telemetry -increased metoprolol to 37.5 BID as she still maintains an average rate in the 110s (6) Hypertension: Qualifiers: Hypertension type: essenti
[2021-07-19] MEDS: HYDROcodone/acetaminophen (*CRX) 5-325 MG TABLET 1 TAB PO (21:28)
[2021-07-20] VITALS (16 sets, daily range): BP systolic 112–151; BP diastolic 74–100; PULSE 93–122; RESP 16–18; TEMP 36.1–36.9; O2SAT 95–99
--- NOTE | 2021-07-20 07:33 | WPDUROPN2 ---
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 Subjective Subjective Date/Time Seen: 07/20/21 07:33 Comfortable, tolerating left nephrostomy tube Review of Systems Cardiovascular: Cardiovascular: Denies chest pain, Denies lightheadedness, Denies palpitations and Denies dyspnea Respiratory: Respiratory: Denies dyspnea Gastrointestinal: Gastrointestinal: Denies diarrhea, Denies nausea and Denies vomiting Genitourinary: Genitourinary: Denies hematuria and Denies dysuria Endocrine: Endocrine: Denies palpitations Exam Const: General: no acute distress Resp: Effort & Inspection: normal respiratory effort GI: Inspection: non-distended GI Palp: No abdominal tenderness and No Guarding due to palpation present (GI) Auscultation: normal bowel sounds Objective Data Vital Signs Vital Signs: Vital Signs - 24 hr 07/19/21 08:00 07/19/21 08:01 07/19/21 08:02 Temperature 97.9 F Pulse Rate 106 H Respiratory Rate 14 Blood Pressure 144/74 H 126/93 H 142/76 H Pulse Oximetry 95 07/19/21 12:00 07/19/21 15:52 07/19/21 16:00 Temperature 98.2 F 97 F L Pulse Rate 116 H 90 116 H Respiratory Rate 14 18 Blood Pressure 126/61 131/82 Pulse Oximetry 97 07/19/21 20:00 07/19/21 20:08 07/19/21 20:12 Temperature 98.0 F Pulse Rate 92 92 Respiratory Rate 17 17 Blood Pressure 139/75 130/80 Pulse Oximetry 98 98 07/19/21 20:27 07/19/21 21:18 07/19/21 23:42 Temperature 97.9 F Pulse Rate 117 H 89 Respiratory Rate 18 Blood Pressure 121/68 Pulse Oximetry 97 98 07/20/21 00:00 07/20/21 03:32 07/20/21 04:00 Temperature 97.9 F Pulse Rate 104 H 93 115 H Respiratory Rate 18 Blood Pressure 126/75 Pulse Oximetry 97 Intake/Output Intake/Output: Intake & Output 07/17/21 07/18/21 07/19/21 07/20/21 23:59 23:59 23:59 23:59 Intake Total 4315 1770 2180 400 Output Total 377 339 8523 375 Balance 3765 1070 1105 25 Meds/Results Medications: Active Medications Generic Name Dose Route Start Last Admin Trade Name Freq PRN Reason Stop Dose Admin Acetaminophen 650 mg 07/13/21 20:22 Acetaminophen 325 Mg Tablet PO Q6H PRN Mild Pain (1-3) or Fever Hydrocodone Bitart/Acetaminophen 1 tab 07/17/21 16:16 07/19/21 21:28 Hydrocodone/Acetaminophen (*Crx) 5-325 Mg Tablet PO 1 tab Q4H PRN Administration Pain Rated 4-6 Bisacodyl 5 mg 07/14/21 18:51 07/15/21 15:26 Bisacodyl 5 Mg Tablet Ec PO 5 mg DAILY PRN Administration Constipation Bupropion HCl 150 mg 07/14/21 09:00 07/19/21 16:49 Bupropion Hcl Sr (12 Hr) 150 Mg Tab PO 150 mg BID RUY Administration Fentanyl Citrate 25 mcg 07/17/21 07:13 07/17/21 13:40 Fentanyl Citrate Inj (*Crx) 100 Mcg/2 Ml Vial IV PUSH 25 mcg Q2M PRN Administration Pain Hydromorphone HCl 1 mg 07/17/21 16:16 07/18/21 22:20 Hydromorphone Hcl Inj (*Crx) 1 Mg/Ml Syr IV PUSH 1 mg Q4H PRN Administration Pain Rated 7-10 Ceftriaxone Sodium/Dextrose 1 gm in 50 mls @ 100 mls/hr 07/14/21 15:00 07/19/21 15:10 Rocephin 1 Gm/D5w 50 Ml IVPB 100 mls/hr Q24H RUY Administration Levothyroxine Sodium 50 mcg 07/19/21 06:30 07/20/21 06:12 Levothyroxine Sodium 50 Mcg Tablet PO Not Given DAILY@0630 RUY Losartan Potassium 100 mg 07/14/21 09:00 07/19/21 08:44 Losartan Potassium 100 Mg Tablet PO 100 mg DAILY RUY Administration Metoprolol Tartrate 25 mg/ 37.5 mg 07/19/21 09:00 07/19/21 21:18 Metoprolol Tartrate 12.5 mg PO 37.5 mg Q12HR RUY Administration Ondansetron HCl 4 mg 07/13/21 19:00 07/17/21 23:09 Ondansetr
[2021-07-20] MEDS: METOPROLOL TARTRATE TAB 25 MG, METOPROLOL TARTRATE TAB 12.5 MG 37.5 MG PO ×2 (08:37→20:56)
--- NOTE | 2021-07-20 10:08 | PM.IMPN ---
Progress Note: A&P Assessment and Plan (1) Profound anemia: Code(s): D64.9 - Anemia, unspecified Status: Acute Assessment and Plan: -down to 6.2 hgb on admission -Stool was reportedly Hemoccult negative per ED physician. -She has not noticed blood loss in any form and specifically denies epistaxis, hematemesis, melena, hematochezia, and hematuria. -Iron studies obtained, she has a normal MCV, TIBC, Ferritin, folate, and B12. Slightly elevated serum iron of 188. -She is s/p 2 units PRBCs with a stable hgb of 7.8 -Repeat stool for occult blood negative -Eliquis on hold -GI consult -EGD and colonoscopy planned for 07/17/21 however this was postponed due to ureteral stent complication -spoke cathy Smith this morning, he is going to start bowel prep today hopefully scopes tomorrow -Continue monitoring CBC (2) Acute renal failure: Code(s): N17.9 - Acute kidney failure, unspecified Status: Acute Assessment and Plan: -She has not had labs done at this facility for over 1.5 years but creatinine today is higher than what she typically runs. -Admitted with creat of 1.8 baseline and she appears to be around 1.0 in the past. -She appears euvolemic though was hypovolemic due to her profound anemia. 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 Large amount of shadowing artifact from right renal pelvis, could be stent or nephrolithiasis. Clinical correlation. 2. Moderate left-sided hydronephrosis, could be obstructive nephropathy. -CT abd/pelv shows known staghorn calculus R kidney and severe left hydronephrosis new from 01/26/17 -lasix renal scan shows worsening now severely delayed activity clearance from the left kidney which demonstrates worsening hydronephrosis on CT imaging consistent with high-grade obstruction. -urology took her to OR for cystoscopy, left retrograde pyelography, left ureteroscopy and left stent placement. Due to a complication pt was taken for emergent nephrostomy tube placement and stent was removed. -nephrostogram today shows occlusion -spoke w/ Dr. Shaikh who states to allow Dr. Smith to proceed with EGD/Colonoscopy and he will attempt to schedule another ureteral stent procedure (3) Hydronephrosis, left: Code(s): N13.30 - Unspecified hydronephrosis Status: Acute Assessment and Plan: -as above -nephrostomy in place -appreciate urology consult (4) Back pain: Code(s): M54.9 - Dorsalgia, unspecified Status: Acute Assessment and Plan: -She did have have some reproducible tenderness to palpation in the left mid back. -Pulmonary embolism unlikely as she is on anticoagulation. -Acetaminophen and heating pad available as needed. -due to hydronephrosis vs musculoskeletal? possibly recently passed stone as pain on admission was severe and now minimal? -significantly improved (5) Atrial fibrillation with rapid ventricular response: Code(s): I48.91 - Unspecified atrial fibrillation Status: Acute Assessment and Plan: -sees Dr. Kumar -discussed case with cardiology SOCIAL WORK ADMINISTRATOR Kylah Barbosa who reviewed office notes. Pt used to be on Metoprolol 25 BID but had significant bradycardia. They cut her dose to 12.5 and at one point discontinued it completely. She came into the office recently for an echo but was found to be in rvr with a rate of 140s. She was restarted on the 12.5 BID dose and was referred to EP at [place]. -pt comes in afib rvr with rate up to 130s/140s. Gave Metoprolol 2.5 IV once and restarted her 25 PO BID. -Has been stable in the high 90s, low 100s, but will jump up to 130s often just prior to her next dose of Metoprolol. Reviewed irrigator valve pipe with Dr. Kumar who states to continue the current dose. -likely exacerbated by her profound anemia on arrival -reviewed echo -continue monitoring on telemetry -increased metoprolol to 37.5 BID as sh
[2021-07-20] MEDS: CHOLECALCIFEROL 1,000 UNITS TABLET 2000 UNITS PO (10:21)
[2021-07-20] MEDS: buPROPion HCL SR (12 HR) 150 MG TAB PO ×2 (10:21→15:58)
[2021-07-20] MEDS: LOSARTAN POTASSIUM 100 MG TABLET PO (10:22)
[2021-07-20] MEDS: PRAVASTATIN SODIUM 20 MG TABLET 80 MG PO (10:22)
[2021-07-20] MEDS: PANTOPRAZOLE 40 MG TABLET PO (10:22)
--- NOTE | 2021-07-20 12:07 | PCCCNOTE ---
On 07/20/21, the student, [ Romi Valdes ], provided care and completed [facility] documentation on this patient. I have reviewed the student's documentation and agree with the findings.
--- NOTE | 2021-07-20 14:36 | WPDGIPROGNO ---
Progress Note: A&P Assessment and Plan (1) Profound anemia: Code(s): D64.9 - Anemia, unspecified Status: Acute Assessment and Plan: admitted with symptomatic anemia that required blood transfusion but no overt gib will proceed with egd and colonoscopy to assess if gi blood loss (2) Paroxysmal atrial fibrillation: Code(s): I48.0 - Paroxysmal atrial fibrillation Status: Acute Assessment and Plan: blood thinner on hold because anemia (3) Intraoperative ureteral injury: Code(s): N99.81 - Other intraoperative complications of genitourinary system Status: Acute Assessment and Plan: s/p nephrostomy tube, by urology (4) Hydronephrosis, left: Code(s): N13.30 - Unspecified hydronephrosis Status: Acute (5) Acute renal failure: Code(s): N17.9 - Acute kidney failure, unspecified Status: Acute Subjective Date/time seen: 07/20/21 14:36 Interval history: no new issues, she would like to have scopes done Review of Systems Review of Systems: All systems reviewed & are unremarkable except as noted in HPI and below Exam Const: General: comfortable and no acute distress HENMT: General nose exam: Normal nares present Eyes: General: appearance normal, both eyes and all related structures Neck: Neck: no JVD Resp: Auscultation: clear to auscultation bilaterally Cardio: Rhythm: abnormal rhythm irregularly irregular GI: Inspection: non-distended GI Palp: Yes Soft to palpation and No Guarding due to palpation present (GI) Auscultation: normal bowel sounds : Other: nephrostomy tube with blood tinged urine Skin: General skin exam: normal color Neuro: Speech: normal speech Extrem: General: normal to inspection Psych: Mental Status: mental status grossly normal Objective Data Vital Signs Vital Signs: Vital Signs - 24 hr 07/19/21 15:52 07/19/21 16:00 07/19/21 20:00 Temperature 97 F L Pulse Rate 90 116 H 92 Respiratory Rate 18 17 Blood Pressure 131/82 Pulse Oximetry 98 07/19/21 20:08 07/19/21 20:12 07/19/21 20:27 Temperature 98.0 F Pulse Rate 92 Respiratory Rate 17 Blood Pressure 139/75 130/80 Pulse Oximetry 98 97 07/19/21 21:18 07/19/21 23:42 07/20/21 00:00 Temperature 97.9 F Pulse Rate 117 H 89 104 H Respiratory Rate 18 Blood Pressure 121/68 Pulse Oximetry 98 07/20/21 03:32 07/20/21 04:00 07/20/21 08:00 Temperature 97.9 F Pulse Rate 93 115 H 114 H Respiratory Rate 18 Blood Pressure 126/75 Pulse Oximetry 97 07/20/21 08:37 07/20/21 08:40 07/20/21 08:41 Temperature 97.0 F L Pulse Rate 122 H 110 H Respiratory Rate 18 Blood Pressure 151/76 H 143/84 H Pulse Oximetry 95 07/20/21 12:00 07/20/21 14:14 Temperature 96.9 F L Pulse Rate 104 H 93 Respiratory Rate 18 Blood Pressure 148/91 H Pulse Oximetry 96 Intake/Output Intake/Output: Intake & Output 07/17/21 07/18/21 07/19/21 07/20/21 23:59 23:59 23:59 23:59 Intake Total 4315 1770 2180 640 Output Total 471 918 1760 375 Balance 3765 1070 1105 265 Meds/Results Medications: Active Medications Generic Name Dose Route Start Last Admin Trade Name Freq PRN Reason Stop Dose Admin Acetaminophen 650 mg 07/13/21 20:22 Acetaminophen 325 Mg Tablet PO Q6H PRN Mild Pain (1-3) or Fever Hydrocodone Bitart/Acetaminophen 1 tab 07/17/21 16:16 07/19/21 21:28 Hydrocodone/Acetaminophen (*Crx) 5-325 Mg Tablet PO 1 tab Q4H PRN Administration Pain Rated 4-6 Bisacodyl 5 mg 07/14/21 18:51 07/15/21 15:26 Bisacodyl 5 Mg Tablet Ec PO 5 mg DAILY PRN Administration Constipation Bisacodyl 20 mg 07/20/21 17:00 Bisacodyl 5 Mg Tablet Ec PO 07/20/21 17:01 ONCE ONE Bupropion HCl 150 mg 07/14/21 09:00 07/20/21 10:21 Bupropion Hcl Sr (12 Hr) 150 Mg Tab PO 150 mg BID RUY Administration Fentanyl Citrate 25 mcg 07/17/21 07:13 07/17/21 13:40 Fentanyl Ci
[2021-07-20] MEDS: PEG (High)/E-LYTE SOLN 4,000 ML BTL 4000 ML PO (15:55)
[2021-07-20] MEDS: BISACODYL 5 MG TABLET EC 20 MG PO (15:56)
[2021-07-20] MEDS: HYDROcodone/acetaminophen (*CRX) 5-325 MG TABLET 1 TAB PO (20:57)
[2021-07-21] VITALS (26 sets, daily range): BP systolic 102–153; BP diastolic 53–96; PULSE 87–120; RESP 12–20; TEMP 36.1–37.2; O2SAT 93–100
[2021-07-21] MEDS: HYDROmorphone HCL INJ (*CRX) 1 MG/ML SYR IV PUSH ×2 (00:12→22:36)
[2021-07-21 06:02] LABS: Basophils Percent Auto 0.8 % (0.2-1.2); Eosinophils Absolute Auto 0.1 K/mm3 (0-0.3); Eosinophils Percent Auto 2.9 % (0-4.4); Hematocrit 24.1 % (37.0-47.0); Hemoglobin 7.3 g/dL (12.0-15.0); Immature Granulocyte Absolute 0.01 K/mm3 (0.00-0.031); Immature Granulocyte Percent A 0.2 % (0-0.5); Lymphocytes Absolute Auto 0.92 K/mm3 (0.9-3.2); Mean Corpuscular HGB Conc 30.3 g/dl (32-36); Mean Corpuscular Hemoglobin 24.9 pg (26-34); Mean Corpuscular Volume 82.3 fl (80-100); Mean Platelet Volume 10.2 fl (7.4-10.4); Monocytes Absolute Auto 0.5 K/mm3 (0.1-0.6); Monocytes Percent Auto 10.1 % (2.6-8.5); Neutrophils Absolute Auto 3.3 K/mm3 (1.3-6.7); Platelet Count Result 142 k/mm3 (150-375); Red Blood Count 2.93 M/mm3 (4.2-5.4); Red Cell Distribution Width 18.3 % (11.5-14.5); White Blood Count 4.9 K/mm3 (4.5-10.0)
[2021-07-21 06:14] LABS: Alanine Aminotransferase 11 U/L (4-35); Albumin Level 3.2 g/dL (3.5-5.1); Alkaline Phosphatase 68 U/L (38-126); Anion Gap 8 mmol/L (8-16); Aspartate Amino Transferase 17 U/L (14-36); Bilirubin,Total 0.4 mg/dL (0.2-1.3); Blood Urea Nitrogen 21 mg/dL (7-17); Calcium 8.8 mg/dL (8.4-10.2); Carbon Dioxide 24 mmol/L (22-30); Chloride 106 mmol/L (98-107); Estimated CRCL calculation 29 ml/min; Estimated Glomerular Filt Rate 39; Glucose 86 mg/dL (65-110); Potassium 4.2 mmol/L (3.4-5.0); Sodium 138 mmol/L (137-145)
[2021-07-21] MEDS: buPROPion HCL SR (12 HR) 150 MG TAB PO ×2 (08:36→17:38)
[2021-07-21] MEDS: PANTOPRAZOLE 40 MG TABLET PO (08:37)
[2021-07-21] MEDS: METOPROLOL TARTRATE TAB 25 MG, METOPROLOL TARTRATE TAB 12.5 MG 37.5 MG PO ×2 (08:38→20:49)
[2021-07-21] MEDS: LOSARTAN POTASSIUM 100 MG TABLET PO (08:40)
[2021-07-21] MEDS: CHOLECALCIFEROL 1,000 UNITS TABLET 2000 UNITS PO (08:40)
[2021-07-21] MEDS: PRAVASTATIN SODIUM 20 MG TABLET 80 MG PO (08:41)
--- NOTE | 2021-07-21 09:36 | PM.IMPN ---
Progress Note: A&P Assessment and Plan (1) Profound anemia: Code(s): D64.9 - Anemia, unspecified Status: Acute Assessment and Plan: -down to 6.2 hgb on admission, symptomatic and requiring blood transfusions with no known cause -Stool was reportedly Hemoccult negative per ED physician. -She has not noticed blood loss in any form and specifically denies epistaxis, hematemesis, melena, hematochezia, and hematuria. -Iron studies obtained, she has a normal MCV, TIBC, Ferritin, folate, and B12. Slightly elevated serum iron of 188. -She is s/p 2 units PRBCs with a stable hgb of 7.3 and hct 24.1 today, down from 7.8 - repeating a CBC now after her 3 procedures -Repeat stool for occult blood negative -Eliquis on hold -GI consult appreciated -EGD and colonoscopy planned for 07/17/21 however this was postponed due to ureteral stent complication -EGD and colonoscopy completed today on 05/20, awaiting report -Continue monitoring CBC (2) Acute renal failure: Code(s): N17.9 - Acute kidney failure, unspecified Status: Acute Assessment and Plan: -She has not had labs done at this facility for over 1.5 years but creatinine today is higher than what she typically runs. -Admitted with creat of 1.8 baseline and she appears to be around 1.0 in the past. -She appears euvolemic though was hypovolemic due to her profound anemia. 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 Large amount of shadowing artifact from right renal pelvis, could be stent or nephrolithiasis. Clinical correlation. 2. Moderate left-sided hydronephrosis, could be obstructive nephropathy. -CT abd/pelv shows known staghorn calculus R kidney and severe left hydronephrosis new from 01/26/17 -lasix renal scan shows worsening now severely delayed activity clearance from the left kidney which demonstrates worsening hydronephrosis on CT imaging consistent with high-grade obstruction. -urology took her to OR for cystoscopy, left retrograde pyelography, left ureteroscopy and left stent placement. Due to a complication pt was taken for emergent nephrostomy tube placement and stent was removed. -nephrostogram today shows occlusion -Dr. Parres attempted another ureteral stent today on 07/21 without success, nephrostomy tube and drain remains with bloody drainage (3) Hydronephrosis, left: Code(s): N13.30 - Unspecified hydronephrosis Status: Acute Assessment and Plan: -as above -nephrostomy in place -Continue left percutaneous nephrostomy drain & bag to gravity drainage for now - urologist treating (4) Back pain: Code(s): M54.9 - Dorsalgia, unspecified Status: Acute Assessment and Plan: -She had some reproducible tenderness to palpation in the left mid back @admission; no flank pain today & no tenderness at nephrostomy tube site. -Pulmonary embolism unlikely as she is on anticoagulation. -Acetaminophen and heating pad available as needed. -due to hydronephrosis vs musculoskeletal? possibly recently passed stone as pain on admission was severe and now minimal? -significantly improved, resolved now, controlled now. she is very sensitive to codeine and does not want Walker or Percocet for pain. -Will continue scheduled Tylenol dosing transitioning into p.r.n. dosing; 2 lidocaine patches scheduled, and p.r.n. Dilaudid. - Ordered PT and OT (5) Atrial fibrillation with rapid ventricular response: Code(s): I48.91 - Unspecified atrial fibrillation Status: Acute Assessment and Plan: -sees gas engine performance engineer Dr. Kumar -discussed case with cardiology SACK SEWER Kylah Barbosa who reviewed office notes. Pt used to be on Metoprolol 25 BID but had significant bradycardia. They cut her dose to 12.5 and at one point discontinued it completely. She came into the office recently for an echo but was found to be in A.Fib with RVR with a rate of 140s. She was restarted on the 12.5 BID
[2021-07-21] MEDS: LACTATED RINGERS 1,000 ML 150 ML IV CONT ×2 (11:02→12:34)
--- NOTE | 2021-07-21 11:15 | WPDANESEPPF ---
Anes - Initial Pre Proc Eval Procedure: Operation Date: 07/17/21 12:00 Proposed Procedures p Cystoscopy, Left Retrograde Pyelogram, Left Ureteroscopy, Left Stent Placement - Nabil Shaikh MD Operation Date: 07/21/21 12:30 Proposed Procedures p Esophagogastroduodenoscopy & Colonoscopy - Jhoan Estes MD Operation Date: 07/21/21 14:00 Proposed Procedures p Cystoscopy, Left Stent Placement - Nabil Shaikh MD Date/Time: 07/21/21 11:15 Surgeon: Karen Blas PA-C Pre Op Diagnosis: Anemia Patient Data Age: 85 Gender: F Height: 1.63 m Weight: 76 kg Last Vital Signs Temp 98.9 F 07/21/21 10:55 Pulse 102 H 07/21/21 10:55 Resp 16 07/21/21 10:55 BP 144/96 H 07/21/21 10:55 Pulse Ox 98 07/21/21 10:55 Allergies Allergy/AdvReac Type Severity Reaction Status Date / Time enoxaparin Allergy Severe Other Verified 07/21/21 10:44 heparin Allergy Severe Other Verified 07/21/21 10:44 codeine AdvReac Mild Nausea Verified 07/21/21 10:44 Home Medications Medication Instructions Recorded Confirmed Type Belsomra 10 mg PO HS 11/19/19 07/14/21 History bupropion HCl 150 mg PO BID 11/19/19 07/14/21 History cholecalciferol (vitamin D3) 50 mcg PO DAILY 11/19/19 07/14/21 History [Vitamin D3] levothyroxine 50 mcg PO DAILY 11/19/19 07/14/21 History losartan 100 mg PO DAILY 11/19/19 07/14/21 History metoprolol tartrate 25 mg PO BID 11/19/19 07/14/21 History pravastatin 80 mg PO DAILY 11/19/19 07/14/21 History Eliquis 5 mg PO BID 01/19/20 07/14/21 History Laboratory Tests 07/21/21 07/21/21 05:32 05:32 WBC 4.9 K/mm3 K/mm3 (4.5-10.0) RBC 2.93 M/mm3 L M/mm3 (4.2-5.4) Hgb 7.3 g/dL L g/dL (12.0-15.0) Hct 24.1 % L % (37.0-47.0) MCV 82.3 fl fl (80-100) MCH 24.9 pg L pg (26-34) MCHC 30.3 g/dl L g/dl (32-36) RDW 18.3 % H % (11.5-14.5) Plt Count 142 k/mm3 L k/mm3 (150-375) MPV 10.2 fl fl (7.4-10.4) Immature Gran % (Auto) 0.2 % % (0-0.5) Neut % (Auto) 67.0 % % (45.5-73.1) Lymph % (Auto) 19.0 % % (18.3-44.2) [place] % (Auto) 10.1 % H % (2.6-8.5) Eos % (Auto) 2.9 % % (0-4.4) Baso % (Auto) 0.8 % % (0.2-1.2) Lymph # (Auto) 0.92 K/mm3 K/mm3 (0.9-3.2) [place] # (Auto) 0.5 K/mm3 K/mm3 (0.1-0.6) Eos # (Auto) 0.1 K/mm3 K/mm3 (0-0.3) Baso # (Auto) 0.0 K/mm3 K/mm3 (0.0-0.1) Abs Immat Gran (auto) 0.01 K/mm3 K/mm3 (0.00-0.031) Absolute Neuts (auto) 3.3 K/mm3 K/mm3 (1.3-6.7) Absolute Nucleated RBC 0.0 K/mm3 K/mm3 (0.0-0.012) Nucleated RBC % 0.0 % % (0.0-0.2) Sodium 138 mmol/L mmol/L (137-145) Potassium 4.2 mmol/L mmol/L (3.4-5.0) Chloride 106 mmol/L mmol/L (98-107) Carbon Dioxide 24 mmol/L mmol/L (22-30) Anion Gap 8 mmol/L mmol/L (8-16) BUN 21 mg/dL H mg/dL (7-17) Creatinine 1.30 mg/dL H mg/dL (0.7-1.0) Estim Creat Clear Calc 29 ml/min ml/min Estimated GFR 39 L (59 - ) Glucose 86 mg/dL mg/dL (65-110) Calcium 8.8 mg/dL mg/dL (8.4-10.2) Total Bilirubin 0.4 mg/dL mg/dL (0.2-1.3) AST 17 U/L U/L (14-36) ALT 11 U/L U/L (4-35) Alkaline Phosphatase 68 U/L U/L (38-126) Total Protein 5.0 g/dL L g/dL (6.3-8.2) Albumin 3.2 g/dL L g/dL (3.5-5.1) Patient hx anesthesia problems: none Family hx anesthesia problems: none Results Review: All pre-operative results and documents have been reviewed as part of the pre-operative evaluation. [facility] Past Medical History Medical History (Updated 07/20/21 @ 07:34 by Nabil Shaikh MD) Acute on chronic blood loss anemia Atrial fibrillation Cerebral aneurysm Status post coil embolization. Chronic kidney disease Degenerative disc disease Depression Dyslipidemia Endometriosis Hemorrhoids Histoplasmosis Hx of
--- NOTE | 2021-07-21 12:53 | SUR.OPER ---
EGD START: 1235; STOP: 1237. COLONOSCOPY START: 1241; STOP: 1251.
[2021-07-21] MEDS: LACTATED RINGERS 1,000 ML 30 ML IV CONT (13:30)
--- NOTE | 2021-07-21 13:48 | WPDHPUPDATE1 ---
History and Physical Update Update Date/Time: 07/21/21 13:48 History and Physical has been reviewed, including an updated exam of the patient. There are NO changes in the patient's condition. Risks, benefits, and alternatives have been discussed and questions answered. Patient agrees to proceed with procedure.
--- NOTE | 2021-07-21 14:43 | PC.NURSE ---
On 07/21/21, the student, Candelaria Jain provided care and completed [facility] documentation on this patient. I have reviewed the student's documentation and agree with the findings.
[2021-07-21] MEDS: LIDOCAINE HCL 2% GEL UROJET 10 ML PKG MUCOUS MEM (14:47)
--- NOTE | 2021-07-21 14:50 | W.PM.PROC2 ---
Procedure Note - Detailed Date of Procedure 07/21/21 Pre-op Diagnosis Left UPJ obstruction Post-op Diagnosis same Procedure Performed Cystoscopy, left ureteroscopy, left retrograde pyelography in a stent and attempted left ureteral stent placement Surgeon Nabil Shaikh MD Anesthesia MAC Description of Procedure Patient is brought to the operative suite where she was prepped and draped in routine sterile fashion while in a dorsal lithotomy position. 2% xylocaine jelly was introduced intraurethrally systemic sedation is administered per the anesthesia department. Cystoscopy is undertaken with a 19 F rigid cystoscope. The bladder was endoscopically normal. A 0.035 in glidewire was advanced into her left mid ureter under fluoroscopy. An angiographic catheter is placed into the mid ureter over the wire and a retrograde pyelogram was obtained. Initially there was no evidence of extravasation and the renal pelvis is filled with retrograde pyelography. With attempted passing an angled Glidewire, however, it appears to go outside the collecting system into the retroperitoneal space. I gently attempted to place a angled guidewires with a torque device into the renal pelvis without clear success. Admitted exhaustive attempt to pass a guidewire through the nephrostomy tube in negotiate the UPJ was unable to do so at this point. Given the recent placement of the nephrostomy I opted not to displace it from its current position. Left ureteroscopy was undertaken and again I saw in retroperitoneal fat at the UPJ and could not find the lumen leading into the renal pelvis. At this time I opted to discontinue the procedure and replace the nephrostomy tube to drainage. We will allow things to heal for 2-3 weeks and a re-attempt stent placement either in a retrograde or antegrade fashion. Urine Output 200 Drains Yes Packing No Pathology none sent Complications No immediate complications Condition stable Disposition PACU
[2021-07-21] MEDS: ACETAMINOPHEN 500 MG TABLET 1000 MG PO (17:37)
[2021-07-21 17:38] LABS: Hematocrit 28.5 % (37.0-47.0); Hemoglobin 8.3 g/dL (12.0-15.0); Mean Corpuscular HGB Conc 29.1 g/dl (32-36); Mean Corpuscular Hemoglobin 25.3 pg (26-34); Mean Corpuscular Volume 86.9 fl (80-100); Mean Platelet Volume 10.6 fl (7.4-10.4); Platelet Count Result 161 k/mm3 (150-375); Red Blood Count 3.28 M/mm3 (4.2-5.4); Red Cell Distribution Width 18.5 % (11.5-14.5); White Blood Count 4.6 K/mm3 (4.5-10.0)
[2021-07-21] MEDS: LIDOCAINE 5% PATCH 2 PATCH TRANSDERM (17:38)
[2021-07-21 17:40] LABS: Lactic Acid Reflex 1.2 mmol/L (0.7-2.1); Prothrombin Time 12.6 Seconds (11.1-14.7)
[2021-07-21 17:50] LABS: Alanine Aminotransferase 14 U/L (4-35); Albumin Level 3.8 g/dL (3.5-5.1); Alkaline Phosphatase 71 U/L (38-126); Anion Gap 8 mmol/L (8-16); Aspartate Amino Transferase 24 U/L (14-36); Bilirubin,Total 0.4 mg/dL (0.2-1.3); Blood Urea Nitrogen 21 mg/dL (7-17); Calcium 9.4 mg/dL (8.4-10.2); Carbon Dioxide 25 mmol/L (22-30); Chloride 104 mmol/L (98-107); Estimated CRCL calculation 31 ml/min; Estimated Glomerular Filt Rate 43; Glucose 108 mg/dL (65-110); Potassium 4.8 mmol/L (3.4-5.0); Sodium 137 mmol/L (137-145)
[2021-07-21 18:53] LABS: CRP 1.5 mg/dL (<1.0)
[2021-07-22] VITALS (12 sets, daily range): BP systolic 110–146; BP diastolic 55–95; PULSE 82–129; RESP 14–18; TEMP 35.8–36.7; O2SAT 96–100
[2021-07-22] MEDS: LEVOTHYROXINE SODIUM 50 MCG TABLET PO (05:32)
[2021-07-22 05:52] LABS: Alanine Aminotransferase 14 U/L (4-35); Albumin Level 3.7 g/dL (3.5-5.1); Alkaline Phosphatase 69 U/L (38-126); Anion Gap 13 mmol/L (8-16); Aspartate Amino Transferase 21 U/L (14-36); Bilirubin,Total 0.3 mg/dL (0.2-1.3); Blood Urea Nitrogen 27 mg/dL (7-17); Calcium 9.2 mg/dL (8.4-10.2); Carbon Dioxide 24 mmol/L (22-30); Chloride 101 mmol/L (98-107); Estimated CRCL calculation 25 ml/min; Estimated Glomerular Filt Rate 33; Glucose 108 mg/dL (65-110); Potassium 4.4 mmol/L (3.4-5.0); Sodium 138 mmol/L (137-145)
[2021-07-22 05:53] LABS: Basophils Percent Auto 0.6 % (0.2-1.2); Eosinophils Percent Auto 0.2 % (0-4.4); Hemoglobin 7.9 g/dL (12.0-15.0); Immature Granulocyte Absolute 0.02 K/mm3 (0.00-0.031); Immature Granulocyte Percent A 0.4 % (0-0.5); Lymphocytes Absolute Auto 0.81 K/mm3 (0.9-3.2); Lymphocytes Percent Auto 15.4 % (18.3-44.2); Mean Corpuscular HGB Conc 29.3 g/dl (32-36); Mean Corpuscular Hemoglobin 24.8 pg (26-34); Mean Corpuscular Volume 84.6 fl (80-100); Mean Platelet Volume 10.8 fl (7.4-10.4); Monocytes Absolute Auto 0.3 K/mm3 (0.1-0.6); Monocytes Percent Auto 5.3 % (2.6-8.5); Neutrophils Absolute Auto 4.1 K/mm3 (1.3-6.7); Neutrophils Percent Auto 78.1 % (45.5-73.1); Nucleated Red Blood Cells Perc 0.4 % (0.0-0.2); Platelet Count Result 177 k/mm3 (150-375); Red Blood Count 3.19 M/mm3 (4.2-5.4); Red Cell Distribution Width 18.4 % (11.5-14.5); White Blood Count 5.3 K/mm3 (4.5-10.0)
[2021-07-22] MEDS: LOSARTAN POTASSIUM 100 MG TABLET PO (08:40)
[2021-07-22] MEDS: buPROPion HCL SR (12 HR) 150 MG TAB PO ×2 (08:40→17:09)
[2021-07-22] MEDS: CHOLECALCIFEROL 1,000 UNITS TABLET 2000 UNITS PO (08:40)
[2021-07-22] MEDS: METOPROLOL TARTRATE TAB 25 MG, METOPROLOL TARTRATE TAB 12.5 MG 37.5 MG PO ×2 (08:40→20:20)
[2021-07-22] MEDS: PRAVASTATIN SODIUM 20 MG TABLET 80 MG PO (08:40)
[2021-07-22] MEDS: PANTOPRAZOLE 40 MG TABLET PO (08:40)
[2021-07-22] MEDS: ACETAMINOPHEN 500 MG TABLET 1000 MG PO ×2 (08:43→17:08)
--- NOTE | 2021-07-22 10:56 | PCNWS ---
Weekly nutritional screen. Patient is tolerating current diet with adequate intake. No weight loss reported. No nutritional needs at this time.
--- NOTE | 2021-07-22 11:13 | WPDANESPN ---
Anes - Prog Note Post-Op Date/Time: 07/22/21 11:13 Cardiovascular status: normal Respiratory status: normal Airway patency: baseline Mental status: baseline Post-Op hydration status: normal Vital Signs: Last Vital Signs Temp 35.9 C L 07/22/21 08:00 Pulse 112 H 07/22/21 08:00 Resp 14 07/22/21 08:00 BP 119/64 07/22/21 08:00 Pulse Ox 100 07/22/21 08:00 Pain Score (VAS): 0 I/O: Intake & Output 07/21/21 07/22/21 07/22/21 23:59 07:59 15:59 Intake Total 340 200 240 Output Total 200 330 Balance 140 -130 240 Laboratory Tests 07/22/21 05:27 07/22/21 05:27 07/21/21 07/21/21 07/21/21 17:22 17:22 17:22 WBC 4.6 RBC 3.28 L Hgb 8.3 L Hct 28.5 L MCV 86.9 D MCH 25.3 L MCHC 29.1 L RDW 18.5 H Plt Count 161 MPV 10.6 H Immature Gran % (Auto) Neut % (Auto) Lymph % (Auto) [place] % (Auto) Eos % (Auto) Baso % (Auto) Lymph # (Auto) [place] # (Auto) Eos # (Auto) Baso # (Auto) Abs Immat Gran (auto) Absolute Neuts (auto) Absolute Nucleated RBC Nucleated RBC % PT INR Sodium 137 Potassium 4.8 Chloride 104 Carbon Dioxide 25 Anion Gap 8 BUN 21 H Creatinine 1.20 H Estim Creat Clear Calc 31 Estimated GFR 43 L Glucose 108 Lactic Acid 1.2 Calcium 9.4 Total Bilirubin 0.4 AST 24 ALT 14 Alkaline Phosphatase 71 C-Reactive Protein Total Protein 6.0 L Albumin 3.8 07/21/21 07/21/21 07/22/21 17:22 17:22 05:27 WBC 5.3 RBC 3.19 L Hgb 7.9 L Hct 27.0 L MCV 84.6 MCH 24.8 L MCHC 29.3 L RDW 18.4 H Plt Count 177 MPV 10.8 H Immature Gran % (Auto) 0.4 Neut % (Auto) 78.1 H Lymph % (Auto) 15.4 L [place] % (Auto) 5.3 Eos % (Auto) 0.2 Baso % (Auto) 0.6 Lymph # (Auto) 0.81 L [place] # (Auto) 0.3 Eos # (Auto) 0.0 Baso # (Auto) 0.0 Abs Immat Gran (auto) 0.02 Absolute Neuts (auto) 4.1 Absolute Nucleated RBC 0.0 Nucleated RBC % 0.4 H PT 12.6 INR 1.0 Sodium Potassium Chloride Carbon Dioxide Anion Gap BUN Creatinine Estim Creat Clear Calc Estimated GFR Glucose Lactic Acid Calcium Total Bilirubin AST ALT Alkaline Phosphatase C-Reactive Protein 1.5 H Total Protein Albumin 07/22/21 05:27 WBC RBC Hgb Hct MCV MCH MCHC RDW Plt Count MPV Immature Gran % (Auto) Neut % (Auto) Lymph % (Auto) [place] % (Auto) Eos % (Auto) Baso % (Auto) Lymph # (Auto) [place] # (Auto) Eos # (Auto) Baso # (Auto) Abs Immat Gran (auto) Absolute Neuts (auto) Absolute Nucleated RBC Nucleated RBC % PT INR Sodium 138 Potassium 4.4 Chloride 101 Carbon Dioxide 24 Anion Gap 13 BUN 27 H Creatinine 1.50 H Estim Creat Clear Calc 25 Estimated GFR 33 L Glucose 108 Lactic Acid Calcium 9.2 Total Bilirubin 0.3 AST 21 ALT 14 Alkaline Phosphatase 69 C-Reactive Protein Total Protein 6.0 L Albumin 3.7 Post-procedural complaints: none Patient Feedback: Patient satisfied with anesthetic care.
--- NOTE | 2021-07-22 11:16 | P.PNAN_ITS ---
Anes - Prog Note Post-Op Date/Time: 07/22/21 11:16 Cardiovascular status: normal Respiratory status: normal Airway patency: baseline Mental status: baseline Post-Op hydration status: normal Vital Signs: Last Vital Signs Temp 35.9 C L 07/22/21 08:00 Pulse 112 H 07/22/21 08:00 Resp 14 07/22/21 08:00 BP 119/64 07/22/21 08:00 Pulse Ox 100 07/22/21 08:00 Pain Score (VAS): 0 I/O: Intake & Output 07/21/21 07/22/21 07/22/21 23:59 07:59 15:59 Intake Total 340 200 240 Output Total 200 330 Balance 140 -130 240 Laboratory Tests 07/22/21 05:27 07/22/21 05:27 07/21/21 07/21/21 07/21/21 17:22 17:22 17:22 WBC 4.6 RBC 3.28 L Hgb 8.3 L Hct 28.5 L MCV 86.9 D MCH 25.3 L MCHC 29.1 L RDW 18.5 H Plt Count 161 MPV 10.6 H Immature Gran % (Auto) Neut % (Auto) Lymph % (Auto) [place] % (Auto) Eos % (Auto) Baso % (Auto) Lymph # (Auto) [place] # (Auto) Eos # (Auto) Baso # (Auto) Abs Immat Gran (auto) Absolute Neuts (auto) Absolute Nucleated RBC Nucleated RBC % PT INR Sodium 137 Potassium 4.8 Chloride 104 Carbon Dioxide 25 Anion Gap 8 BUN 21 H Creatinine 1.20 H Estim Creat Clear Calc 31 Estimated GFR 43 L Glucose 108 Lactic Acid 1.2 Calcium 9.4 Total Bilirubin 0.4 AST 24 ALT 14 Alkaline Phosphatase 71 C-Reactive Protein Total Protein 6.0 L Albumin 3.8 07/21/21 07/21/21 07/22/21 17:22 17:22 05:27 WBC 5.3 RBC 3.19 L Hgb 7.9 L Hct 27.0 L MCV 84.6 MCH 24.8 L MCHC 29.3 L RDW 18.4 H Plt Count 177 MPV 10.8 H Immature Gran % (Auto) 0.4 Neut % (Auto) 78.1 H Lymph % (Auto) 15.4 L [place] % (Auto) 5.3 Eos % (Auto) 0.2 Baso % (Auto) 0.6 Lymph # (Auto) 0.81 L [place] # (Auto) 0.3 Eos # (Auto) 0.0 Baso # (Auto) 0.0 Abs Immat Gran (auto) 0.02 Absolute Neuts (auto) 4.1 Absolute Nucleated RBC 0.0 Nucleated RBC % 0.4 H PT 12.6 INR 1.0 Sodium Potassium Chloride Carbon Dioxide Anion Gap BUN Creatinine Estim Creat Clear Calc Estimated GFR Glucose Lactic Acid Calcium Total Bilirubin AST ALT Alkaline Phosphatase C-Reactive Protein 1.5 H Total Protein Albumin 07/22/21 05:27 WBC RBC Hgb Hct MCV MCH
--- NOTE | 2021-07-22 17:01 | PM.IMPN ---
Progress Note: A&P Assessment and Plan (1) Profound anemia: Code(s): D64.9 - Anemia, unspecified Status: Acute Assessment and Plan: -down to 6.2 hgb on admission, symptomatic and requiring blood transfusions with no known cause -Stool was reportedly Hemoccult negative per ED physician. -She has not noticed blood loss in any form and specifically denies epistaxis, hematemesis, melena, hematochezia, and hematuria. -Iron studies obtained, she has a normal MCV, TIBC, Ferritin, folate, and B12. Slightly elevated serum iron of 188. -She is s/p 2 units PRBCs with a stable hgb of 7.9 and hct 27 today -Repeat stool for occult blood negative -Eliquis on hold will talk with GI and Neurology about when this could be restarted since no acute bleeding was found -GI consult and performed an EGD and colonoscopy showing unremarkable EGD and no signs of acute bleeding or abnormality to explain anemia. Few colon polyps and internal hemorrhoids were found and some diverticulosis without perforation or abscess. -Continue monitoring CBC (2) Acute renal failure: Code(s): N17.9 - Acute kidney failure, unspecified Status: Acute Assessment and Plan: -She has not had labs done at this facility for over 1.5 years but creatinine today is higher than what she typically runs. -Admitted with creat of 1.8 baseline and she appears to be around 1.0 in the past. -She appears euvolemic though was hypovolemic due to her profound anemia. 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 Large amount of shadowing artifact from right renal pelvis, could be stent or nephrolithiasis. Clinical correlation. 2. Moderate left-sided hydronephrosis, could be obstructive nephropathy. -CT abd/pelv shows known staghorn calculus R kidney and severe left hydronephrosis new from 01/26/17 -lasix renal scan shows worsening now severely delayed activity clearance from the left kidney which demonstrates worsening hydronephrosis on CT imaging consistent with high-grade obstruction. -urology took her to [place] Cystoscopy, left ureteroscopy, left retrograde pyelography in a stent and attempted left ureteral stent placement. Stent was unable replaced and so patient have to continue with nephrostomy tube. -there is some blood-tinged urine to left nephrostomy tube. Will discuss with Urology is she is able to restart her Eliquis or if this will need to be held. (3) Hydronephrosis, left: Code(s): N13.30 - Unspecified hydronephrosis Status: Acute Assessment and Plan: -as above -nephrostomy in place -Continue left percutaneous nephrostomy drain & bag to gravity drainage for now - urologist treating (4) Back pain: Code(s): M54.9 - Dorsalgia, unspecified Status: Acute Assessment and Plan: -She had some reproducible tenderness to palpation in the left mid back @admission; no flank pain today & no tenderness at nephrostomy tube site. -Pulmonary embolism unlikely as she is on anticoagulation. -Acetaminophen and heating pad available as needed. -due to hydronephrosis vs musculoskeletal? possibly recently passed stone as pain on admission was severe and now minimal? -significantly improved, resolved now, controlled now. she is very sensitive to codeine and does not want [place] or Percocet for pain. -Will continue scheduled Tylenol dosing transitioning into p.r.n. dosing; 2 lidocaine patches scheduled, and p.r.n. Dilaudid. - Ordered PT and OT (5) Atrial fibrillation with rapid ventricular response: Code(s): I48.91 - Unspecified atrial fibrillation Status: Acute Assessment and Plan: -sees operator control room Dr. Kumar -discussed case with cardiology [employer] Kylah Barbosa who reviewed office notes. Pt used to be on Metoprolol 25 BID but had significant bradycardia. They cut her dose to 12.5 and at one point discontinued it completely. She came into the office recently
[2021-07-22] MEDS: HYDROmorphone HCL INJ (*CRX) 1 MG/ML SYR IV PUSH (22:42)
[2021-07-23] VITALS (15 sets, daily range): BP systolic 112–144; BP diastolic 56–85; PULSE 54–120; RESP 16–18; TEMP 36.1–36.7; O2SAT 94–98
[2021-07-23] MEDS: LEVOTHYROXINE SODIUM 50 MCG TABLET PO (05:32)
[2021-07-23 05:50] LABS: Basophils Absolute Auto 0.1 K/mm3 (0.0-0.1); Basophils Percent Auto 0.8 % (0.2-1.2); Eosinophils Absolute Auto 0.3 K/mm3 (0-0.3); Eosinophils Percent Auto 4.2 % (0-4.4); Hematocrit 23.9 % (37.0-47.0); Immature Granulocyte Absolute 0.03 K/mm3 (0.00-0.031); Immature Granulocyte Percent A 0.5 % (0-0.5); Lymphocytes Absolute Auto 1.35 K/mm3 (0.9-3.2); Lymphocytes Percent Auto 22.9 % (18.3-44.2); Mean Corpuscular HGB Conc 29.3 g/dl (32-36); Mean Corpuscular Hemoglobin 25.2 pg (26-34); Mean Platelet Volume 10.8 fl (7.4-10.4); Monocytes Absolute Auto 0.5 K/mm3 (0.1-0.6); Monocytes Percent Auto 9.2 % (2.6-8.5); Neutrophils Absolute Auto 3.7 K/mm3 (1.3-6.7); Neutrophils Percent Auto 62.4 % (45.5-73.1); Platelet Count Result 134 k/mm3 (150-375); Red Blood Count 2.78 M/mm3 (4.2-5.4); Red Cell Distribution Width 18.4 % (11.5-14.5); White Blood Count 5.9 K/mm3 (4.5-10.0)
[2021-07-23 06:03] LABS: Anion Gap 3 mmol/L (8-16); Blood Urea Nitrogen 31 mg/dL (7-17); Calcium 8.7 mg/dL (8.4-10.2); Carbon Dioxide 26 mmol/L (22-30); Chloride 107 mmol/L (98-107); Estimated CRCL calculation 24 ml/min; Estimated Glomerular Filt Rate 31; Glucose 89 mg/dL (65-110); Potassium 4.3 mmol/L (3.4-5.0); Sodium 136 mmol/L (137-145)
--- NOTE | 2021-07-23 07:27 | WPDUROPN2 ---
Progress Note: A&P Assessment and Plan (1) Obstruction of left ureteropelvic junction (UPJ): Code(s): N13.5 - Crossing vessel and stricture of ureter without hydronephrosis Status: Acute Assessment and Plan: Home anytime, from our standpoint, with indwelling left PCN to drainage. Re-attempt at left stent placement 2-3 weeks. Subjective Subjective Date/Time Seen: 07/23/21 07:27 Tolerating left nephrostomy tube without pain but emotionally distraught by having to keep in place x2-3 weeks. Review of Systems Cardiovascular: Cardiovascular: Denies chest pain, Denies lightheadedness, Denies palpitations and Denies dyspnea Respiratory: Respiratory: Denies dyspnea Gastrointestinal: Gastrointestinal: Denies diarrhea, Denies nausea and Denies vomiting Genitourinary: Genitourinary: Denies hematuria and Denies dysuria Endocrine: Endocrine: Denies palpitations Exam Const: General: no acute distress Resp: Effort & Inspection: normal respiratory effort GI: Inspection: non-distended GI Palp: No abdominal tenderness and No Guarding due to palpation present (GI) Auscultation: normal bowel sounds Objective Data Vital Signs Vital Signs: Vital Signs - 24 hr 07/22/21 08:00 07/22/21 12:00 07/22/21 12:56 Temperature 96.6 F L 96.4 F L Pulse Rate 82 103 H 123 H Respiratory Rate 14 14 Blood Pressure 121/76 119/57 L 111/55 L Pulse Oximetry 100 100 07/22/21 16:00 07/22/21 19:49 07/22/21 19:55 Temperature 96.6 F L 97 F L Pulse Rate 95 91 Respiratory Rate 16 16 Blood Pressure 125/77 146/68 H 136/75 Pulse Oximetry 100 100 07/22/21 20:00 07/22/21 20:20 07/23/21 00:00 Temperature Pulse Rate 110 H 100 104 H Respiratory Rate Blood Pressure Pulse Oximetry 07/23/21 00:05 07/23/21 04:00 07/23/21 04:55 Temperature 97.7 F 97.1 F L Pulse Rate 87 96 96 Respiratory Rate 17 16 Blood Pressure 121/56 L 112/58 L Pulse Oximetry 97 96 Intake/Output Intake/Output: Intake & Output 07/20/21 07/21/21 07/22/21 07/23/21 23:59 23:59 23:59 23:59 Intake Total 1430 1490 1420 300 Output Total 226 685 8650 275 Balance 605 532 220 25 Meds/Results Medications: Active Medications Generic Name Dose Route Start Last Admin Trade Name Freq PRN Reason Stop Dose Admin Acetaminophen 1,000 mg 07/24/21 00:00 Acetaminophen 500 Mg Tablet PO Q6H PRN Mild Pain (1-3) or Fever Acetaminophen 1,000 mg 07/21/21 17:10 07/22/21 17:08 Acetaminophen 500 Mg Tablet PO 07/23/21 09:01 1,000 mg BID RUY Administration Bisacodyl 5 mg 07/14/21 18:51 07/15/21 15:26 Bisacodyl 5 Mg Tablet Ec PO 5 mg DAILY PRN Administration Constipation Bupropion HCl 150 mg 07/14/21 09:00 07/22/21 17:09 Bupropion Hcl Sr (12 Hr) 150 Mg Tab PO 150 mg BID RUY Administration Hydromorphone HCl 1 mg 07/17/21 16:16 07/22/21 22:42 Hydromorphone Hcl Inj (*Crx) 1 Mg/Ml Syr IV PUSH 1 mg Q4H PRN Administration Pain Rated 7-10 Ceftriaxone Sodium/Dextrose 1 gm in 50 mls @ 100 mls/hr 07/14/21 15:00 07/22/21 17:08 Rocephin 1 Gm/D5w 50 Ml IVPB 100 mls/hr Q24H RUY Administration Levothyroxine Sodium 50 mcg 07/19/21 06:30 07/23/21 05:32 Levothyroxine Sodium 50 Mcg Tablet PO 50 mcg DAILY@0630 RUY Administration Lidocaine 2 patch 07/21/21 17:10 07/22/21 08:45 Lidocaine 5% Patch TRANSDERM Not Given DAILY RUY Losartan Potassium 100 mg 07/14/21 09:00 07/22/21 08:40 Losartan Potassium 100 Mg Tablet PO 100 mg DAILY RUY Administration Metoprolol Tartrate 25 mg/ 37.5 mg 07/19/21 09:00 07/22/21 20:20 Metoprolol Tartrate 12.5 mg PO 37.5 mg Q12HR RUY Administration Ondansetron HCl 4 mg 07/13/21 19:00 07/17/21 23:09 Ondansetron Inj 4 Mg/2 Ml Vial IV PUSH 4 mg Q4H PRN Administration Nausea Ondansetron HCl 4 mg 07/17/21 07:13 Ondansetron Inj 4 Mg/2 Ml Vial IV PUSH ONCE PRN Nausea Ondansetr
[2021-07-23] MEDS: PANTOPRAZOLE 40 MG TABLET PO (08:21)
[2021-07-23] MEDS: PRAVASTATIN SODIUM 20 MG TABLET 80 MG PO (08:21)
[2021-07-23] MEDS: ACETAMINOPHEN 500 MG TABLET 1000 MG PO (08:21)
[2021-07-23] MEDS: CHOLECALCIFEROL 1,000 UNITS TABLET 2000 UNITS PO (08:22)
[2021-07-23] MEDS: LOSARTAN POTASSIUM 100 MG TABLET PO (08:22)
[2021-07-23] MEDS: buPROPion HCL SR (12 HR) 150 MG TAB PO ×2 (08:22→17:28)
[2021-07-23] MEDS: METOPROLOL TARTRATE TAB 25 MG, METOPROLOL TARTRATE TAB 12.5 MG 37.5 MG PO (08:22)
--- NOTE | 2021-07-23 11:07 | PM.CNCAR ---
Assessment and Plan Additional Plan -AFib with RVR *-anemia -hypertension -kidney stone -left nephrostomy This is a 85-year-old female with past history of paroxysmal atrial fibrillation on Eliquis who was admitted here for left flank pain. Was noticed to be anemic with hemoglobin on admission 6.2 and creatinine on admission 1.8. Workup was negative for anemia including iron studies, stool guaiac and EGD and colonoscopy. Obvious blood loss occurred normal iron stores. Patient can be started back on the Eliquis 2.5 mg b.i.d. Agree with metoprolol 37.5 mg b.i.d.. I believe that the heart rate is running on the higher side due to underlying anemia. If this gets corrected in the future we might have to cut down on the metoprolol. History of Present Illness History of Present Illness Consult date/time: 07/23/21 11:07 Requesting physician: An Mahmood PA-C Consult reason: atrial fibrillation Reason For Visit: Anemia Narrative: this is a 85-year-old female who follows up with Dr. Kumar and with past medical history of atrial fibrillation Eliquis, moderate to severe mitral regurgitation, mild aortic stenosis, hypertension. she was admitted on July 13, 2021 with flank pain. Urology following for left ureter pelvic obstruction. Patient's hemoglobin was found to be 6.2 on admission and received 2 units of blood transfusion and yesterday 7.9 and today 7. Negative guaiac, normal iron studies. No evidence of bleeding. Eliquis on hold. Currently patient is sitting down and no complaints. No chest pain shortness of breath no lower limb edema, dizziness or syncope. She is in AFib heart rate 90-100 beats per minute. Apparently also has AFib with RVR. upon following up in the office she used to be on metoprolol 25 mg b.i.d. but was reduced to 12.5 mg b.i.d. due to bradycardia and then the metoprolol was discontinued and referred to EP. However when patient came in here she was in AFib with RVR and was started on metoprolol 12.5 mg b.i.d. and then increase to gradually and currently at 37.5 mg b.i.d.. She is receiving losartan 100 mg daily as well. echo on July 15, 2021: 1. Complete two-dimensional, color flow and Doppler transthoracic echocardiogram is performed. 2. Left ventricular chamber dimension is normal. 3. Left ventricular systolic function is normal, estimated at 60-65%. 4. There is moderately increased left ventricular wall thickness. 5. The left ventricular diastolic function is abnormal. 6. Global longitudinal strain is abnormal at -9 %. 7. Left atrial chamber dimension is moderately enlarged. 8. Right atrial chamber dimension is mildly enlarged. 9. There is mild aortic valve stenosis with a peak velocity of 219 cm/s, mean gradient of 5 mmHg, and aortic valve area of 1.6 cm2. 10. There is mild aortic valve regurgitation. 11. There is moderate aortic valve calcification. 12. There is moderate to severe mitral valve regurgitation. 13. There is mild to moderate tricuspid valve regurgitation. 14. Mild pulmonary hypertension, estimated pulmonary arterial systolic pressure is 41 mmHg. 15. There is small pericardial effusion. 16. No echocardiographic evidence of tamponade physiology. 17. Strain analysis performed. Review of Systems Constitutional: Constitutional: Denies chills, Denies fever(s) and Denies poor appetite Eyes: Eyes: Denies eye discharge, Denies loss of vision, Denies eye pain and Denies photophobia ENT: Denies dizziness, Denies epistaxis, Denies nasal congestion and Denies sore throat Cardiovascular: Cardiovascular: Denies chest pain, Denies syncope, Denies pedal edema, Denies leg edema, Denies palpitations, Denies dyspnea, Denies dyspnea on exertion and Denies orthopnea Respiratory: Respiratory: Denies cough, Denies dyspnea, Denies dyspnea on exertion and Denies wheezing Gastrointestinal: Gastrointestinal: Denies abdominal pain, Denies diarrhea, Denies nausea, Denies
[2021-07-23 11:49] LABS: Hematocrit 25.7 % (37.0-47.0); Hemoglobin 7.5 g/dL (12.0-15.0)
--- NOTE | 2021-07-23 15:28 | PM.IMPN ---
Progress Note: A&P Assessment and Plan (1) Profound anemia: Code(s): D64.9 - Anemia, unspecified Status: Acute Assessment and Plan: -down to 6.2 hgb on admission, symptomatic and requiring blood transfusions with no known cause -Stool was reportedly Hemoccult negative per ED physician. -She has not noticed blood loss in any form and specifically denies epistaxis, hematemesis, melena, hematochezia, and hematuria. -Iron studies obtained, she has a normal MCV, TIBC, Ferritin, folate, and B12. Slightly elevated serum iron of 188. -She is s/p 2 units PRBCs with a stable hgb of 7.9 and hct 27 today -Repeat stool for occult blood negative -GI consult and performed an EGD and colonoscopy showing unremarkable EGD and no signs of acute bleeding or abnormality to explain anemia. Few colon polyps and internal hemorrhoids were found and some diverticulosis without perforation or abscess. -hemoglobin this morning was 7.0. -I did talk with Cardiology who feels at this time there is no acute bleeding causing her anemia and it could be from aplastic anemia versus chronic disease from her elevated renal function. He would like to restart her Eliquis at 2.5 mg q.12 given her age and GFR. We will restart her Eliquis and continue monitoring her H&H for the next 24 hours. Continue monitoring CBC (2) Acute renal failure: Code(s): N17.9 - Acute kidney failure, unspecified Status: Acute Assessment and Plan: -She has not had labs done at this facility for over 1.5 years but creatinine today is higher than what she typically runs. -Admitted with creat of 1.8 baseline and she appears to be around 1.0 in the past. -She appears euvolemic though was hypovolemic due to her profound anemia. 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 Large amount of shadowing artifact from right renal pelvis, could be stent or nephrolithiasis. Clinical correlation. 2. Moderate left-sided hydronephrosis, could be obstructive nephropathy. -CT abd/pelv shows known staghorn calculus R kidney and severe left hydronephrosis new from 01/26/17 -lasix renal scan shows worsening now severely delayed activity clearance from the left kidney which demonstrates worsening hydronephrosis on CT imaging consistent with high-grade obstruction. -urology took her to [place] Cystoscopy, left ureteroscopy, left retrograde pyelography in a stent and attempted left ureteral stent placement. Stent was unable replaced and so patient have to continue with nephrostomy tube. -renal function is stable with a creatinine of 1.6. Will hopefully slowly come down now that her nephrostomy tube is in place. -there is some blood-tinged urine to left nephrostomy tube. Urology is okay with restarting her Eliquis and does not believe it will affect her blood tinged urine to the nephrostomy tube. He states the blood tinged urine is most likely going to remain steady until the nephrostomy tube is removed hopefully in a couple weeks. (3) Hydronephrosis, left: Code(s): N13.30 - Unspecified hydronephrosis Status: Acute Assessment and Plan: -as above -nephrostomy in place -Continue left percutaneous nephrostomy drain & bag to gravity drainage for now - urologist treating and recommends outpatient follow-up in 2-3 weeks for possible stent placement and hopefully they can remove the nephrostomy tube at the time (4) Back pain: Code(s): M54.9 - Dorsalgia, unspecified Status: Acute Assessment and Plan: -She had some reproducible tenderness to palpation in the left mid back @admission; no flank pain today & no tenderness at nephrostomy tube site. -Pulmonary embolism unlikely as she is on anticoagulation. -Acetaminophen and heating pad available as needed. -due to hydronephrosis vs musculoskeletal? possibly recently passed stone as pain on admission was severe and now minimal? -significantly improved, resolv
[2021-07-23] MEDS: HYDROmorphone HCL INJ (*CRX) 1 MG/ML SYR IV PUSH ×2 (18:16→22:57)
[2021-07-23] MEDS: ONDANSETRON INJ 4 MG/2 ML VIAL IV PUSH (20:17)
[2021-07-23] MEDS: APIXABAN 2.5 MG TABLET PO (20:21)
[2021-07-23] MEDS: METOPROLOL TARTRATE 50 MG TAB PO (20:22)
[2021-07-23 21:11] LABS: Hematocrit 26.6 % (37.0-47.0); Hemoglobin 7.8 g/dL (12.0-15.0)
[2021-07-24] VITALS (10 sets, daily range): BP systolic 116–148; BP diastolic 52–71; PULSE 58–126; RESP 16–18; TEMP 35.8–36.6; O2SAT 96–100
[2021-07-24] MEDS: ONDANSETRON INJ 4 MG/2 ML VIAL IV PUSH ×2 (03:19→08:17)
[2021-07-24] MEDS: LEVOTHYROXINE SODIUM 50 MCG TABLET PO (05:51)
[2021-07-24 06:57] LABS: Hematocrit 24.9 % (37.0-47.0); Hemoglobin 7.3 g/dL (12.0-15.0); Mean Corpuscular HGB Conc 29.3 g/dl (32-36); Mean Corpuscular Hemoglobin 24.9 pg (26-34); Mean Platelet Volume 11.1 fl (7.4-10.4); Platelet Count Result 145 k/mm3 (150-375); Red Blood Count 2.93 M/mm3 (4.2-5.4); Red Cell Distribution Width 18.4 % (11.5-14.5); White Blood Count 5.6 K/mm3 (4.5-10.0)
[2021-07-24 07:09] LABS: Anion Gap 5 mmol/L (8-16); Blood Urea Nitrogen 28 mg/dL (7-17); Carbon Dioxide 26 mmol/L (22-30); Chloride 107 mmol/L (98-107); Estimated CRCL calculation 27 ml/min; Estimated Glomerular Filt Rate 36; Glucose 101 mg/dL (65-110); Potassium 4.5 mmol/L (3.4-5.0); Sodium 138 mmol/L (137-145)
[2021-07-24] MEDS: CHOLECALCIFEROL 1,000 UNITS TABLET 2000 UNITS PO (08:17)
[2021-07-24] MEDS: PRAVASTATIN SODIUM 20 MG TABLET 80 MG PO (08:17)
[2021-07-24] MEDS: buPROPion HCL SR (12 HR) 150 MG TAB PO (08:18)
[2021-07-24] MEDS: LOSARTAN POTASSIUM 100 MG TABLET PO (08:18)
[2021-07-24] MEDS: METOPROLOL TARTRATE 50 MG TAB PO (08:18)
[2021-07-24] MEDS: APIXABAN 2.5 MG TABLET PO (08:18)
[2021-07-24] MEDS: PANTOPRAZOLE 40 MG TABLET PO (08:19)
[2021-07-24 11:48] LABS: Hematocrit 25.3 % (37.0-47.0); Hemoglobin 7.4 g/dL (12.0-15.0)
[2021-07-24] MEDS: polyethylene glycoL 3350 17 GM POWD.PACK PO (12:00)
--- NOTE | 2021-07-24 14:12 | PM.PNCARD ---
Progress Note: A&P Additional Plan 85-year-old lady with chronic atrial fibrillation heart rate is well controlled with metoprolol. She remains anticoagulated with apixaban. She is obviously at higher risk for this given her significant anemia which at this time I do not believe has been explained. For now the decision has been made to continue apixaban at renal dose. Will ensure that she has follow-up with Dr. Huddleston in the office after this. She says she has anticipate going home today. Aurelio Chamberlain MD [facility] Subjective Date/time seen: date of service:07/24/21 14:12 Interval history: Follow-up visit in this 85-year-old lady with: Chronic atrial fibrillation being managed with rate control and anticoagulation. Patient was seen in consultation for assistance with decisions regarding these medications. She presented to the hospital with severe anemia hemoglobin down a proximally to 6 g. no obvious source of bleeding and does not appear to have specific diagnosis for this made as of yet. Patient is anticoagulated with apixaban. The decision has been made to continue this at a reduced dose because of her renal insufficiency. Patient offers no cardiovascular symptoms today. Is upset and becomes emotional when discussing the fact that she has a urostomy bag. she says she has an active social life and does not believe she will be able to engage with her friends with this in place Exam Const: General: comfortable and no acute distress Other: pleasant elderly lady rather emotional because of her urostomy bag HENMT: Mouth: Yes moist mucous membranes Eyes: Sclera: sclerae normal Pupils: Equal, round and reactive pupils present Neck: Neck: supple and no JVD Resp: Effort & Inspection: normal respiratory effort Auscultation: clear to auscultation bilaterally Cardio: Rhythm: abnormal rhythm irregularly irregular GI: GI Palp: Yes Soft to palpation Auscultation: normal bowel sounds Skin: General skin exam: normal color Neuro: Cognition (Neuro): normal cognition Extrem: Other: no edema Objective Data Vital Signs Vital Signs: Vital Signs - 24 hr 07/23/21 16:00 07/23/21 17:46 07/23/21 20:00 Temperature 36.7 C Pulse Rate 115 H 110 H 119 H Respiratory Rate 18 Blood Pressure 129/75 Pulse Oximetry 97 07/23/21 20:22 07/23/21 20:36 07/23/21 21:14 Temperature 36.1 C L Pulse Rate 92 120 H 96 Respiratory Rate 16 Blood Pressure 135/85 Pulse Oximetry 94 96 07/24/21 00:00 07/24/21 04:00 07/24/21 06:38 Temperature 35.8 C L Pulse Rate 126 H 109 H 85 Respiratory Rate 16 Blood Pressure 123/58 L Pulse Oximetry 96 07/24/21 08:00 07/24/21 08:18 07/24/21 09:05 Temperature Pulse Rate 104 H 85 Respiratory Rate Blood Pressure 116/52 L Pulse Oximetry 07/24/21 09:06 07/24/21 10:00 07/24/21 12:00 Temperature 36.6 C Pulse Rate 102 H 108 H Respiratory Rate 18 Blood Pressure 118/54 L 118/68 Pulse Oximetry 100 07/24/21 14:04 Temperature 36.1 C L Pulse Rate 58 L Respiratory Rate 18 Blood Pressure 148/71 H Pulse Oximetry 97 Intake/Output Intake/Output: Intake & Output 07/21/21 07/22/21 07/23/21 07/24/21 23:59 23:59 23:59 23:59 Intake Total 1490 1420 960 360 Output Total 958 1200 1275 350 Balance 532 220 -315 10 Meds/Results Medications: Active Medications Generic Name Dose Route Start Last Admin Trade Name Yohan PRN Reason Stop Dose Admin Acetaminophen 1,000 mg 07/24/21 00:00 Acetaminophen 500 Mg Tablet PO Q6H PRN Mild Pain (1-3) or Fever Apixaban 2.5 mg 07/23/21 21:00 07/24/21 08:18 Apixaban 2.5 Mg Tablet PO 2.5 mg Q12HR RUY Administration Bisacodyl 5 mg 07/14/21 18:51 07/15/21 15:26 Bisacodyl 5 Mg Tablet Ec PO 5 mg DAILY PRN Administration Constipation Bupropion HCl 150 mg 07/14/21 09:00 07/24/21 08:18 Bupropion Hcl Sr (12 Hr) 150 Mg Tab PO 150 mg BID RUY Administrat
--- NOTE | 2021-07-24 14:22 | PM.DS ---
DS: Admitting Diagnosis Discharge Date 07/24/21 Admitting Diagnosis Back pain DS: Discharge Diagnosis Discharge Diagnosis (1) Profound anemia: Code(s): D64.9 - Anemia, unspecified Status: Acute Assessment and Plan: This is a very pleasant 85-year-old female with hypertension, hyperlipidemia, paroxysmal atrial fibrillation, hypothyroidism, and kidney stones who presented to the emergency department today for evaluation of left back pain and shortness of breath. The patient initially came in for evaluation of left mid back pain that has been present for about 2 months though worse these past few weeks. She describes a severe aching discomfort in the area, occasionally sharp with movement. On arrival to the emergency department, her vitals showed elevated blood pressure 144/86, slight tachycardia 106 beats per minute, afebrile, normal oxygenation on room air. Initial labs showed normal white blood cell count, normocytic anemia with a hemoglobin of 6.8, hematocrit 23%, normal platelets and differential, INR 1.6. Elevated PT PTT. Elevated creatinine 1.8, BUN 28. Elevated chloride 110. Normal LFTs. Negative troponin x3. Normal lipase. Normal vitamin B12 and folic acid. TSH was slightly high with normal T 3 and T4. Iron study showed normal % saturation low ferritin at 14. Chest x-ray showed small bilateral pleural effusions with bibasilar atelectasis versus pneumonia. Increased density in the right renal pelvis demonstrating mild hydronephrosis suggesting recent intravenous contrast administration. Correlate with clinical history. Her hemoglobin went down to 6.2 and improved to 8 after her blood transfusions. Stool was reportedly Hemoccult negative per ED physician. She has not noticed blood loss in any form and specifically denies epistaxis, hematemesis, melena, hematochezia, and hematuria. Her H&H remained stable with a hemoglobin between 7 and 8. She is not symptomatic. GI consult and performed an EGD and colonoscopy showing unremarkable EGD and no signs of acute bleeding or abnormality to explain anemia. Few colon polyps and internal hemorrhoids were found and some diverticulosis without perforation or abscess. I did talk with Cardiology who feels at this time there is no acute bleeding causing her anemia and it could be from aplastic anemia versus chronic disease from her elevated renal function. He would like to restart her Eliquis at 2.5 mg q.12 given her age and GFR. She has been on her Eliquis for last 24 hours and her H&H has remained stable and not dropping below 7. Will recheck a CBC next week and have her follow-up PCP. If she becomes symptomatic she was told to come back to emergency room for further evaluation. During her hospitalization she had further evaluation given her chest x-ray showing hydronephrosis and increased density in the right renal pelvis. Renal ultrasound showed Large amount of shadowing artifact from right renal pelvis, could be stent or nephrolithiasis. Clinical correlation. Moderate left-sided hydronephrosis, could be obstructive nephropathy. CT Abd/ Pelvis showed Staghorn calculus in right kidney. Moderate right kidney atrophy. Severe left hydronephrosis with transition point at the ureteropelvic junction, new from 01/26/2017. Mild left kidney atrophy. New med renal scan showed Symmetric kidney function. Moderately delayed activity clearance from the right kidney consistent with partial obstruction with no hydronephrosis on the prior CT but with increase in the degree of clearance delay compared with the prior study. Also worsening now severely delayed activity clearance from the left kidney which demonstrates worsening hydronephrosis on CT imaging consistent with high-grade obstruction. The degree of obstruction can be overestimated in the setting of supine positioning, dehydration/poor renal function and a severely dilated or atonic collecting system. Urology was consulted and took the patient to the [facility]
--- NOTE | 2021-07-24 15:44 | WPDUROPN2 ---
Progress Note: A&P Assessment and Plan (1) Obstruction of left ureteropelvic junction (UPJ): Code(s): N13.5 - Crossing vessel and stricture of ureter without hydronephrosis Status: Acute Assessment and Plan: Left nephrostomy tube to stay in place until her cysto, left ureteroscopy with stent placement and left retrograde pyelogram. We had a long discussion about caring for her nephrostomy tubes and restrictions as well as her upcoming procedure with DR. Shaikh. She is very anxious about it, but is aware she can resume normal daily activities without straining or heavy lifting. (2) Intraoperative ureteral injury: Code(s): N99.81 - Other intraoperative complications of genitourinary system Status: Acute (3) E coli infection: Code(s): A49.8 - Other bacterial infections of unspecified site Status: Acute (4) Acute renal failure: Code(s): N17.9 - Acute kidney failure, unspecified Status: Acute Assessment and Plan: Slowly improving to 1.40. Ok to discharge at any time. (5) Staghorn renal calculus: Code(s): N20.0 - Calculus of kidney Status: Acute Assessment and Plan: no surgical plans at this time Subjective Subjective Date/Time Seen: 07/24/21 15:44 Tolerating left nephrostomy tube without pain but emotionally distraught by having to keep in place x2-3 weeks. Review of Systems Cardiovascular: Cardiovascular: Denies chest pain Respiratory: Respiratory: Reports no additional respiratory complaints Gastrointestinal: Gastrointestinal: Denies abdominal pain, Denies nausea and Denies vomiting Genitourinary: Genitourinary: Reports hematuria, Denies dysuria, Denies pelvic pain and Denies flank pain Exam Resp: Effort & Inspection: normal respiratory effort Cardio: Rate: regular rate GI: GI Palp: Yes Soft to palpation and No Tenderness to palpation present (GI) : General: Yes no CVA tenderness and Yes other (Left nephrostomy tube draining bloody urine to gravity. Dressing is dry.) Extrem: General: no edema Objective Data Vital Signs Vital Signs: Vital Signs - 24 hr 07/23/21 16:00 07/23/21 17:46 07/23/21 20:00 Temperature 98.1 F Pulse Rate 115 H 110 H 119 H Respiratory Rate 18 Blood Pressure 129/75 Pulse Oximetry 97 07/23/21 20:22 07/23/21 20:36 07/23/21 21:14 Temperature 97.0 F L Pulse Rate 92 120 H 96 Respiratory Rate 16 Blood Pressure 135/85 Pulse Oximetry 94 96 07/24/21 00:00 07/24/21 04:00 07/24/21 06:38 Temperature 96.4 F L Pulse Rate 126 H 109 H 85 Respiratory Rate 16 Blood Pressure 123/58 L Pulse Oximetry 96 07/24/21 08:00 07/24/21 08:18 07/24/21 09:05 Temperature Pulse Rate 104 H 85 Respiratory Rate Blood Pressure 116/52 L Pulse Oximetry 07/24/21 09:06 07/24/21 10:00 07/24/21 12:00 Temperature 97.8 F Pulse Rate 102 H 108 H Respiratory Rate 18 Blood Pressure 118/54 L 118/68 Pulse Oximetry 100 07/24/21 14:04 Temperature 96.9 F L Pulse Rate 58 L Respiratory Rate 18 Blood Pressure 148/71 H Pulse Oximetry 97 Intake/Output Intake/Output: Intake & Output 07/21/21 07/22/21 07/23/21 07/24/21 23:59 23:59 23:59 23:59 Intake Total 1490 1420 960 360 Output Total 958 1200 1275 350 Balance 532 220 -315 10 Meds/Results Medications: Active Medications Generic Name Dose Route Start Last Admin Trade Name Freq PRN Reason Stop Dose Admin Acetaminophen 1,000 mg 07/24/21 00:00 Acetaminophen 500 Mg Tablet PO Q6H PRN Mild Pain (1-3) or Fever Apixaban 2.5 mg 07/23/21 21:00 07/24/21 08:18 Apixaban 2.5 Mg Tablet PO 2.5 mg Q12HR RUY Administration Bisacodyl 5 mg 07/14/21 18:51 07/15/21 15:26 Bisacodyl 5 Mg Tablet Ec PO 5 mg DAILY PRN Administration Constipation Bupropion HCl 150 mg 07/14/21 09:00 07/24/21 08:18 Bupropion Hcl Sr (12 Hr) 150 Mg Tab PO 150 mg BID RUY Administration Hydromor
== END 2021-07-24 16:56 | disposition home health service (06) | DRG 988 ==
LOC: ANHED 16:23 → ANHIMU 17:06 → ANH3MED 07-20 11:25 → ANHIMU 07-27 09:48
PROVIDERS: Emergency Medicine; Internal Medicine Gastroenterology; Nurse Practitioner; Physician Assistant; Urology; Admitting Provider Internal Medicine; Emergency Provider Emergency Medicine; PCP Internal Medicine; Visit Provider Physician Assistant
PROC: 0T778DZ Dilation of Left Ureter with Intraluminal Device, Via Natural or Artificial Opening Endoscopic (ICD-10-PCS; CPT 52352; principal; 2021-07-17 12:00)
PROC: 0DJ08ZZ Inspection of Upper Intestinal Tract, Via Natural or Artificial Opening Endoscopic (ICD-10-PCS; CPT 43235; principal; 2021-07-21 12:30)
PROC: (CPT 52352; principal; 2021-07-21 14:00)
DX: D62 Acute posthemorrhagic anemia (principal); I31.3 Pericardial effusion (noninflammatory); N17.9 Acute kidney failure, unspecified; N13.6 Pyonephrosis; N99.71 Accidental puncture and laceration of a genitourinary system organ or structure during a genitourinary system procedure; N18.9 Chronic kidney disease, unspecified; I48.0 Paroxysmal atrial fibrillation; E03.9 Hypothyroidism, unspecified; I12.9 Hypertensive chronic kidney disease with stage 1 through stage 4 chronic kidney disease, or unspecified chronic kidney disease; M54.9 Dorsalgia, unspecified; E78.5 Hyperlipidemia, unspecified; N20.0 Calculus of kidney; Z79.01 Long term (current) use of anticoagulants; Z79.899 Other long term (current) drug therapy; Z86.711 Personal history of pulmonary embolism; Z87.442 Personal history of urinary calculi; Z87.891 Personal history of nicotine dependence; B96.20 Unspecified Escherichia coli [E. coli] as the cause of diseases classified elsewhere; Z87.440 Personal history of urinary (tract) infections; K57.30 Diverticulosis of large intestine without perforation or abscess without bleeding; K64.8 Other hemorrhoids; I08.0 Rheumatic disorders of both mitral and aortic valves; F32.A Depression, unspecified
CPT/HCPCS: 36415; 36430; 50431; 50432; 71046; 74176; 74420; 76775; 78708; 80048; 80053; 81001; 82274; 82607; 82728; 82746; 83540; 83550; 83605; 83690; 83735; 84439; 84443; 84480; 84484; 85014; 85018; 85025; 85027; 85046; 85610; 85730; 86140; 86850; 86900; 86901; 86920; 87070; 87075; 87077; 87086; 87088; 87186; 87205; 88108; 88305; 93005; 93306; 96361; 96365; 96366; 96374; 96375; 96376; 97161; 97165; 99285; A9270; A9562; C1729; C1769; C1887; C2617; C9113; G0378; J0696; J1170; J1200; J1940; J2405; J2704; J3010; J7050; J7120; P9016; Q9966

== ENCOUNTER 2021-07-29 01:23 | Emergency (ER) | payer MEDICARE, SELFPAY ==
--- NOTE | ~2021-07-29 | CT_ITS ---
EXAMINATION: CT abdomen pelvis wo con DATE: 07/29/2021 02:01 INDICATION: Flank pain TECHNIQUE: Computed tomography (CT) of the abdomen and pelvis was performed without intravenous contr ast. Automated exposure control and iterative reconstruction technique were employed. The dose-length product was 832.48 mGy-cm. COMPARISON: None FINDINGS: Small left and moderate right pleural effusions with dependent compressive atelectasis in the bilater al lower lobes. Multiple bilateral calcified pulmonary nodules along with calcified mediastinal and a few hepatic and numerous splenic calcific lesions, all consistent with old granulomatous disease. Mi ld cardiomegaly. Atherosclerotic coronary artery calcification. No pericardial effusion. Gallstones w ithin the decompressed gallbladder. Pancreas and bilateral adrenal glands are normal. Large staghorn calculus filling the right renal pelvis and calyces. Left percutaneous nephrostomy tube in the left r enal pelvis. No hydronephrosis. Residual 1.4 x 0.9 cm collection of perirenal fluid along the anterio r margin of the left renal pelvis at the site of the previous malpositioned internal ureteral stent. The remainder of the perinephric fluid has resolved. Bladder is normal. Prominent sigmoid predominant diverticulosis without adjacent inflammatory change to suggest diverticulitis. No bowel obstruction. Partially decompressed bladder is unremarkable. The uterus is not identified and has likely been criss gically resected. Bilateral small fat-containing inguinal hernias. No free intraperitoneal gas or flu id. No pathologically enlarged abdominal or pelvic lymphadenopathy. Severe spondylosis in the lumbar and lower thoracic spine. Large right gluteus raheem intramuscular lipoma. IMPRESSION: 1. Small left and moderate right pleural effusions. 2. Cardiomegaly. 3. Cholelithiasis. 4. Unchanged large nonobstructing right staghorn calculus. 5. Near complete resolution of a now tiny left perinephric fluid collection related to an earlier ure teral injury and resolution of left hydronephrosis post placement of a left percutaneous nephrostomy tube which is in expected position. 6. Diverticulosis. Reviewed, dictated and finalized at location A. DEVELOPER IMPRESSION: 1. Small left and moderate right pleural effusions. 2. Cardiomegaly. 3. Cholelithiasis. 4. Unchanged large nonobstructing right staghorn calculus. 5. Near complete resolution of a now tiny left perinephric fluid collection rel ated to an earlier ureteral injury and resolution of left hydronephrosis post p lacement of a left percutaneous nephrostomy tube which is in expected position. 6. Diverticulosis.
--- NOTE | ~2021-07-29 | XR_ITS ---
EXAMINATION: XR chest 2V DATE: 07/29/2021 01:51 INDICATION: Cough TECHNIQUE: AP and lateral views of the chest are obtained. COMPARISON: 07/13/2021 FINDINGS: There are minimal bibasilar airspace opacities. Small pleural effusions are present. There is no pneumothorax. Calcified pulmonary nodules and calcified bilateral hilar and mediastinal lymph n odes are consistent with old granulomatous disease. The cardiomediastinal silhouette is normal. There is moderate thoracic spondylosis. IMPRESSION: 1. Small pleural effusions with bibasilar atelectasis. Reviewed, dictated and finalized at location A. UCE ASSOCIATE
[2021-07-29 01:27] VITALS: BP 108/76; PULSE 83; RESP 20; TEMP 36.6; O2SAT 98
--- NOTE | 2021-07-29 01:37 | ED.GENADULT ---
HPI - General Adult General Chief complaint: Unspecified Stated complaint: LEFT MID BACK PAIN WITH MILD SOB Time Seen by Provider: 07/29/21 01:32 Source: patient Mode of arrival: ambulatory Limitations: no limitations History of Present Illness HPI narrative: Patient is an 85-year-old female complaining of left flank pain accompanied by shortness of breath only when she lays down that started few weeks ago, was recently discharge 4 days ago from this hospital after being admitted for the same complaints. Patient states that the tramadol that was prescribed to her when she was discharged from the hospital is not working and that is why she is here. Patient had a left UPJ obstruction, left nephrostomy tube placed, had left ureteroscopy with stent placement and left retrograde pyelogram. Her shortness of breath was attributed to her anemia which is either due to anemia of chronic disease or aplastic anemia. Her shortness of breath could also be through to her pleural effusion on a chest x-ray that was done 2 weeks ago. Patient states that her shortness of breath is not worse compared to the past few weeks. Patient denies any chest pain, abdominal pain, abdominal distention, nausea, vomiting, bilateral lower extremity edema, weight gain, fever or chills. Related Data Home Medications Medication Instructions Recorded Confirmed Belsomra 10 mg PO HS 11/19/19 07/14/21 bupropion HCl 150 mg PO BID 11/19/19 07/14/21 cholecalciferol (vitamin D3) 50 mcg PO DAILY 11/19/19 07/14/21 [Vitamin D3] levothyroxine 50 mcg PO DAILY 11/19/19 07/14/21 losartan 100 mg PO DAILY 11/19/19 07/14/21 pravastatin 80 mg PO DAILY 11/19/19 07/14/21 Allergies Allergy/AdvReac Type Severity Reaction Status Date / Time enoxaparin Allergy Severe Other Verified 07/29/21 01:37 heparin Allergy Severe Other Verified 07/29/21 01:37 codeine AdvReac Mild Nausea Verified 07/29/21 01:37 Review of Systems Review of Systems: All systems reviewed & are unremarkable except as noted in HPI and below Constitutional: Constitutional: Denies body ache(s), Denies chills, Denies excessive sweating, Denies fatigue, Denies fever(s), Denies headache(s), Denies lethargy, Denies malaise, Denies weakness and Denies weight loss Eyes: Eyes: Denies blurry vision, Denies change in vision and Denies loss of vision ENT: Denies dizziness, Denies ear discharge, Denies headache(s), Denies lip swelling, Denies epistaxis, Denies nasal congestion, Denies neck pain, Denies throat swelling and Denies tongue swelling Cardiovascular: Cardiovascular: Denies chest pain, Denies chest pain at rest, Denies chest pain with activity, Denies diaphoresis, Denies rapid heart rate, Denies edema, Denies irregular heart rhythm, Denies lightheadedness and Denies palpitations Respiratory: Respiratory: Denies chest congestion, Denies cough and Denies hemoptysis Gastrointestinal: Gastrointestinal: Denies abdominal pain, Denies melena, Denies hematochezia, Denies diarrhea, Denies nausea, Denies vomiting and Denies hematemesis Musculoskeletal: Musculoskeletal: Denies abnormal gait, Denies deformity, Denies joint swelling, Denies limited range of motion, Denies neck pain and Denies numbness Neurologic: Denies Abnormal speech present, Denies abnormal gait, Denies confusion, Denies dizziness, Denies headache(s), Denies focal weakness, Denies loss of vision, Denies numbness, Denies Other visual disturbances, Denies Sensory deficit (Neuro) and Denies weakness Psychiatric: Psychiatric: Denies confusion, Denies depression, Denies auditory hallucinations, Denies homicidal ideation and Denies suicidal ideation Endocrine: Endocrine: Denies cold intolerance, Denies excessive sweating, Denies fatigue, Denies heat intolerance and Denies palpitations Hematologic/Lymphatic: Hematologic/Lymphatic: Denies easy bleeding and Denies easy bruising Allergic/Immunologic: Allergic/Immunologic: Denies lip swelling, Denies throat swelling and Denies to
--- NOTE | 2021-07-29 01:48 | ECG_ITS ---
Measurements Intervals [place] Rate: 67 P: 66 [place]: 247 QRS: 31 QRSD: 99 T: 62 QT: 416 QTc: 442 Interpretive Statements SINUS RHYTHM WITH SINUS ARRHYTHMIA WITH FIRST DEGREE AV BLOCK POSSIBLE LEFT ATRIAL ENLARGEMENT BORDERLINE ST-T WAVE ABNORMALITY- LAT/HIGH LAT LEADS ABNORMAL ECG Electronically Signed On 07-29-2021 6:26:23 CERTIFIED SURGICAL TECHNICIAN by Dylon Kumari D.O.
[2021-07-29] MEDS: HYDROmorphone HCL INJ (*CRX) 1 MG/ML SYR 0.5 MG IV PUSH (02:23)
[2021-07-29 02:37] VITALS: PULSE 63; RESP 16; O2SAT 97
[2021-07-29 03:01] VITALS: BP 170/81; PULSE 71; RESP 16; O2SAT 96
[2021-07-29 03:18] LABS: Basophils Absolute Auto 0.1 K/mm3 (0.0-0.1); Basophils Percent Auto 1.2 % (0.2-1.2); Eosinophils Absolute Auto 0.2 K/mm3 (0-0.3); Eosinophils Percent Auto 3.8 % (0-4.4); Hematocrit 29.9 % (37.0-47.0); Hemoglobin 8.1 g/dL (12.0-15.0); Immature Granulocyte Absolute 0.02 K/mm3 (0.00-0.031); Immature Granulocyte Percent A 0.3 % (0-0.5); Lymphocytes Absolute Auto 1.04 K/mm3 (0.9-3.2); Lymphocytes Percent Auto 17.2 % (18.3-44.2); Mean Corpuscular HGB Conc 27.1 g/dl (32-36); Mean Corpuscular Hemoglobin 24.3 pg (26-34); Mean Corpuscular Volume 89.5 fl (80-100); Mean Platelet Volume 10.8 fl (7.4-10.4); Monocytes Absolute Auto 0.5 K/mm3 (0.1-0.6); Monocytes Percent Auto 7.9 % (2.6-8.5); Neutrophils Absolute Auto 4.2 K/mm3 (1.3-6.7); Neutrophils Percent Auto 69.6 % (45.5-73.1); Nucleated Red Blood Cells Perc 0.3 % (0.0-0.2); Platelet Count Result 166 k/mm3 (150-375); Red Blood Count 3.34 M/mm3 (4.2-5.4); Red Cell Distribution Width 19.4 % (11.5-14.5); White Blood Count 6.1 K/mm3 (4.5-10.0)
[2021-07-29 03:37] LABS: Troponin I < 0.012 ng/mL (0.000-0.034)
[2021-07-29 03:47] LABS: INR 1.2; Prothrombin Time 14.6 Seconds (11.1-14.7)
[2021-07-29 03:48] LABS: Alanine Aminotransferase 15 U/L (4-35); Albumin Level 3.7 g/dL (3.5-5.1); Alkaline Phosphatase 61 U/L (38-126); Anion Gap 11 mmol/L (8-16); Aspartate Amino Transferase 40 U/L (14-36); Bilirubin,Total 0.4 mg/dL (0.2-1.3); Blood Urea Nitrogen 38 mg/dL (7-17); Calcium 8.6 mg/dL (8.4-10.2); Carbon Dioxide 18 mmol/L (22-30); Chloride 111 mmol/L (98-107); Estimated CRCL calculation 19 ml/min; Estimated Glomerular Filt Rate 29; Glucose 88 mg/dL (65-110); Sodium 140 mmol/L (137-145)
[2021-07-29 03:48] LABS: Partial Thromboplastin Time 32.6 SECONDS (22.3-36.8)
[2021-07-29 03:59] LABS: NT Pro B Type Natriuretic Pept 6940 pg/mL (5-100)
[2021-07-29 04:00] LABS: Anisocytosis 1+ (NORMAL); Hypochromasia 2+ (NORMAL); Platelet Estimate Adequate (Adequate)
[2021-07-29 04:01] LABS: Burr Cells 1+ (NORMAL); Ovalocytes 1+ (NORMAL); Schistocytes 1+ (NORMAL)
[2021-07-29 04:32] VITALS: BP 123/70; PULSE 73; RESP 20; O2SAT 100
[2021-07-29 05:18] LABS: Troponin I < 0.012 ng/mL (0.000-0.034)
[2021-07-29 05:48] VITALS: BP 156/84; PULSE 86; RESP 18; O2SAT 100
== END 2021-07-29 06:14 | disposition home or self-care (01) ==
PROVIDERS: Emergency Provider Emergency Medicine; PCP Internal Medicine
DX: R10.9 Unspecified abdominal pain (principal); J90 Pleural effusion, not elsewhere classified; D64.9 Anemia, unspecified; I12.9 Hypertensive chronic kidney disease with stage 1 through stage 4 chronic kidney disease, or unspecified chronic kidney disease; N18.9 Chronic kidney disease, unspecified; I48.0 Paroxysmal atrial fibrillation; E78.5 Hyperlipidemia, unspecified; E03.9 Hypothyroidism, unspecified; Z87.442 Personal history of urinary calculi; Z86.711 Personal history of pulmonary embolism; Z98.49 Cataract extraction status, unspecified eye; F17.210 Nicotine dependence, cigarettes, uncomplicated; F32.A Depression, unspecified; R06.02 Shortness of breath; Z79.01 Long term (current) use of anticoagulants; Z96.0 Presence of urogenital implants; R94.31 Abnormal electrocardiogram [ECG] [EKG]; I51.7 Cardiomegaly; K80.20 Calculus of gallbladder without cholecystitis without obstruction; K57.90 Diverticulosis of intestine, part unspecified, without perforation or abscess without bleeding
CPT/HCPCS: 36415; 71046; 74176; 80053; 83880; 84484; 85025; 85610; 85730; 93005; 96374; 99284; J1170

== ENCOUNTER 2021-08-01 12:56 | Inpatient (IN) | payer MEDICARE, SELFPAY ==
[2021-08-01] VITALS (22 sets, daily range): BP systolic 132–158; BP diastolic 84–109; PULSE 72–127; RESP 14–23; TEMP 36.2–37; O2SAT 93–100; BMI 28.0
--- NOTE | ~2021-08-01 | XR_ITS ---
EXAMINATION: XR chest 2V EXAM DATE: 08/01/2021 13:20 INDICATION: Shortness of breath, HX HTN, AFIB. TECHNIQUE: Frontal and lateral projections of the chest obtained and reviewed. Comparison is made to prior examination from 07/29/2021. FINDINGS: There is cardiomegaly. There are small to moderate bilateral pleural effusions. Basilar ai rspace disease probably edema. Pneumonia not excludable. Mild progression in these findings compared to 3 days ago. There is no pneumothorax suspected. There is aortic arteriosclerosis. IMPRESSION: 1. Findings consistent with CHF exacerbation, mild interval progression. 2. Basilar pneumonia not excludable. Reviewed, dictated and finalized at location A. TAKER
--- NOTE | 2021-08-01 12:57 | ECG_ITS ---
Measurements Intervals [place] Rate: 106 P: [place]: 0 QRS: 48 QRSD: 89 T: 50 QT: 336 QTc: 447 Interpretive Statements ATRIAL FIBRILLATION WITH RAPID VENTRICULAR RESPONSE BORDERLINE R WAVE PROGRESSION, ANTERIOR LEADS BORDERLINE ST-T WAVE ABNORMALITY- INF/LAT LEADS ABNORMAL ECG Electronically Signed On 08-01-2021 14:17:01 EVAPORATOR REPAIRER by Dylon Kumari D.O.
[2021-08-01 13:25] LABS: Basophils Absolute Auto 0.1 K/mm3 (0.0-0.1); Basophils Percent Auto 0.8 % (0.2-1.2); Eosinophils Percent Auto 0.4 % (0-4.4); Hematocrit 26.4 % (37.0-47.0); Hemoglobin 7.7 g/dL (12.0-15.0); Immature Granulocyte Absolute 0.04 K/mm3 (0.00-0.031); Immature Granulocyte Percent A 0.5 % (0-0.5); Lymphocytes Absolute Auto 1.32 K/mm3 (0.9-3.2); Lymphocytes Percent Auto 17.4 % (18.3-44.2); Mean Corpuscular HGB Conc 29.2 g/dl (32-36); Mean Corpuscular Hemoglobin 23.9 pg (26-34); Mean Platelet Volume 11.4 fl (7.4-10.4); Monocytes Absolute Auto 0.8 K/mm3 (0.1-0.6); Monocytes Percent Auto 9.9 % (2.6-8.5); Neutrophils Absolute Auto 5.4 K/mm3 (1.3-6.7); Platelet Count Result 207 k/mm3 (150-375); Red Blood Count 3.22 M/mm3 (4.2-5.4); Red Cell Distribution Width 19.4 % (11.5-14.5); White Blood Count 7.6 K/mm3 (4.5-10.0)
--- NOTE | 2021-08-01 13:32 | ED.GENADULT ---
HPI - General Adult General Chief complaint: Shortness of Breath/Dyspnea Stated complaint: SOB Time Seen by Provider: 08/01/21 13:04 Source: patient, family, RN notes reviewed and old records reviewed Limitations: no limitations History of Present Illness HPI narrative: 85-year-old female with history of hypertension atrial fibrillation and previous IN presents the [facility] for evaluation of worsening shortness of breath. Patient states that she has had exertional shortness of breath where she tends to get tired walking across the room. Patient states over the last 2 days the shortness of breath has worsened to where it is even at rest. With the exam patient did appear winded. Patient denies any recent fluid overload or lower extremity edema. Patient denies any current chest pain. Patient did have a recent hospitalization related to a kidney issue where she was supposed to receive a ureteral stent but was unable to have this procedure done due to an abnormality with the ureter. Patient is scheduled to have this redone in 2 weeks. Patient does have atrial fibrillation which is persistent. Patient does take metoprolol for this patient states 6 days ago her metoprolol dose was increased and her Eliquis dose was decreased. Related Data Home Medications Medication Instructions Recorded Confirmed Belsomra 10 mg PO HS 11/19/19 07/14/21 bupropion HCl 150 mg PO BID 11/19/19 07/14/21 cholecalciferol (vitamin D3) 50 mcg PO DAILY 11/19/19 07/14/21 [Vitamin D3] levothyroxine 50 mcg PO DAILY 11/19/19 07/14/21 losartan 100 mg PO DAILY 11/19/19 07/14/21 pravastatin 80 mg PO DAILY 11/19/19 07/14/21 Allergies Allergy/AdvReac Type Severity Reaction Status Date / Time enoxaparin Allergy Severe Other Verified 07/29/21 01:37 heparin Allergy Severe Other Verified 07/29/21 01:37 codeine AdvReac Mild Nausea Verified 07/29/21 01:37 Review of Systems Review of Systems: CONSTITUTIONAL: Denies fever, chills, or sweats. EYES: Denies visual changes, redness, or discharge. ENT: Denies rhinorrhea, congestion, sore throat, or otalgia. CARDIOVASCULAR: Denies chest pain, palpitations, or worsening edema. RESPIRATORY: Does report increased shortness of breath and exertional shortness of breath GASTROINTESTINAL: Denies abdominal pain, nausea, vomiting, or diarrhea. GENITOURINARY: Denies dysuria or hematuria. SKIN: Denies rash or itching. MUSCULOSKELETAL: Denies back pain, joint pain, or myalgia. NEUROLOGIC: Denies headache, numbness, or weakness. [facility] Past Medical History Medical History Acute on chronic blood loss anemia Atrial fibrillation Cerebral aneurysm Status post coil embolization. Chronic kidney disease Degenerative disc disease Depression Dyslipidemia Endometriosis Hemorrhoids Histoplasmosis Hx of shelter use of blood thinners Hyperlipidemia Hypertension Hypothyroidism Intraoperative ureteral injury Kidney stones Including known right staghorn calculus. Nonspecific colitis Paroxysmal atrial fibrillation PONV (postoperative nausea and vomiting) Pulmonary embolism Stone, kidney Surgical History Surgical History History of arthroplasty of right knee History of cataract extraction History of colonoscopy with polypectomy History of lumbar surgery History of tonsillectomy and adenoidectomy History of total hysterectomy with bilateral salpingo-oophorectomy (BSO) Status post coil embolization of cerebral aneurysm Family History Family History Mother , in her 70s Hypertension Father Hypertension Acute myocardial infarction Social History Social History Social History: Surrogate decision maker: Code status: Full code. Smoking packs per day: 0.5 Smoking cigarette
[2021-08-01 13:40] LABS: Alanine Aminotransferase 19 U/L (4-35); Alkaline Phosphatase 89 U/L (38-126); Anion Gap 10 mmol/L (8-16); Aspartate Amino Transferase 31 U/L (14-36); Bilirubin,Total 0.9 mg/dL (0.2-1.3); Blood Urea Nitrogen 35 mg/dL (7-17); Calcium 9.4 mg/dL (8.4-10.2); Carbon Dioxide 21 mmol/L (22-30); Chloride 108 mmol/L (98-107); Estimated CRCL calculation 23 ml/min; Estimated Glomerular Filt Rate 36; Glucose 97 mg/dL (65-110); Potassium 4.6 mmol/L (3.4-5.0); Sodium 139 mmol/L (137-145)
[2021-08-01 13:45] LABS: Hypochromasia 1+ (NORMAL); Platelet Estimate Adequate (Adequate)
[2021-08-01 14:04] LABS: NT Pro B Type Natriuretic Pept 20200 pg/mL (5-100)
[2021-08-01 15:02] LABS: Troponin I < 0.012 ng/mL (0.000-0.034)
[2021-08-01] MEDS: FUROSEMIDE INJ 40 MG/4 ML VIAL IV PUSH ×2 (15:02→19:38)
--- NOTE | 2021-08-01 15:02 | PM.IMHP ---
H&P: HPI History of Present Illness Date/Time: 08/01/21 15:02 This is a very pleasant, yet very complicated 85 year old female patient with a significant PMH of recent extensive urological issues including left ureteral stricture, status post left nephrostomy patient after left ureteral perforation secondary to attempted stent placement with failure, acute renal failure and UTI of E.coli with improvement in Creatinine to 1.4 today which is decreased from 1.8. In addition she has a right sided Staghorn calculus. She has an appointment to see Dr. Shaikh in two weeks. She presented five days later to the ER with complaints of having mid back pain on the left side with mild dyspnea. CT at that time of abdomen and pelvis shows that there was interval resolution of the hydronephrosis on the left side. Her CXR at that time showed interval improvement from her most recent that showed a small pleural effusions with bibasilar spondylosis. Her BNP at that time was 7K. She was discharged to home with a diagnosis of flank pain and told the patient to follow up with her Urologist the next day. In addition, she has a significant PMH of Atrial Fibrillation with RVR on chronic Eliquis, HTN, previous [place], acute on chronic anemia with a baseline of 7.5, cerebral aneurysm status post coiling, CKD, DJD, Depression, HLD, Histoplasmosis, Hypothyroidism, colitis, PE, to name a few who represented to the ER today with complaints of having worsening CHAN for the past 1-2 weeks. She denies any CP with it, but does endorse some intermittent nausea. Today in the ED, her workup shows that she has worsening of her BNP from 7K three days ago to now >20K, her CXR shows interval progression of CHF. Pt. is dyspneic with even minimal exertion. Review of her most recent ECHO from this month is unremarkable with an EF of 60-65%. Other remarkable findings from the ER today include her Hgb/Hct of 7.7/26.4 which is decreased from 8.1/29.9 three days ago, and normal Troponin. EKG shows Atrial Fibrillation with a rate of 106 bpm. She does not appear to be in any acute distress and her most concerning issue for her right now is that her Nephrostomy is due to be cleaned on Tuesday. There are no other concerns or issues to address at this time. Chief Complaint: Dyspnea on Exertion Review of Systems Review of Systems: 12 point review of symptoms as noted in HPI. All systems reviewed & are unremarkable except as noted in HPI and below PMFSH Past Medical History Medical History Acute on chronic blood loss anemia Atrial fibrillation Cerebral aneurysm Status post coil embolization. 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 Nonspecific colitis Paroxysmal atrial fibrillation PONV (postoperative nausea and vomiting) Pulmonary embolism Stone, kidney Surgical History Surgical History History of arthroplasty of right knee History of cataract extraction History of colonoscopy with polypectomy History of lumbar surgery History of tonsillectomy and adenoidectomy History of total hysterectomy with bilateral salpingo-oophorectomy (BSO) Status post coil embolization of cerebral aneurysm Family History Family History Mother , in her 70s Hypertension Father Hypertension Acute myocardial infarction Social History Social History Social History: Surrogate decision maker: Code status: Full code. Smoking packs per day: 0.5 Smoking cigarettes per day: 10.0 Years smoked: 5 Smoking pack-years: 2.50
[2021-08-01 15:08] LABS: SARS-CoV-2 RNA PCR Negative
--- NOTE | 2021-08-01 16:18 | ADMGEN ---
This patient, Nelia Peterson, was admitted to IMU Room 203-01. Patient/family oriented to hospital policies and general routines including ID bracelet, bed and alarms, visiting hours, pain management, procedures, bathroom and other care routines, personal items, smoking policy, room service/diet, and visiting hours. Information on how to activate the Rapid Response Team has been discussed. Patient/Family are encouraged to report perceived risks to care and to ask questions if they do not understand what they are told or what they should do.
[2021-08-01 17:08] LABS: Troponin I < 0.012 ng/mL (0.000-0.034)
[2021-08-01] MEDS: traMADol HCL (*CRX) 50 MG TABLET PO (18:50)
[2021-08-01] MEDS: APIXABAN 2.5 MG TABLET PO (19:36)
[2021-08-01] MEDS: METOPROLOL TARTRATE 50 MG TAB PO (19:37)
[2021-08-01] MEDS: buPROPion HCL SR (12 HR) 150 MG TAB PO (19:38)
[2021-08-01] MEDS: oxyCODONE/ACETAMINOPHEN (*CRX) 5-325 MG TABLET 1 TABLET PO (20:23)
[2021-08-01] MEDS: hydrOXYzine HCL 25 MG TABLET PO (20:24)
[2021-08-02] VITALS (11 sets, daily range): BP systolic 108–132; BP diastolic 62–71; PULSE 96–114; RESP 10–22; TEMP 36.1–36.7; O2SAT 98–100
[2021-08-02] MEDS: LEVOTHYROXINE SODIUM 50 MCG TABLET PO (06:21)
[2021-08-02] MEDS: LOSARTAN POTASSIUM 100 MG TABLET PO (08:06)
[2021-08-02] MEDS: APIXABAN 2.5 MG TABLET PO ×2 (08:06→20:37)
[2021-08-02] MEDS: buPROPion HCL SR (12 HR) 150 MG TAB PO ×2 (08:07→20:37)
[2021-08-02] MEDS: CHOLECALCIFEROL 1,000 UNITS TABLET 2000 UNITS PO (08:07)
[2021-08-02] MEDS: PRAVASTATIN SODIUM 20 MG TABLET 80 MG PO (08:08)
[2021-08-02] MEDS: FUROSEMIDE INJ 40 MG/4 ML VIAL IV PUSH ×2 (08:08→20:37)
[2021-08-02] MEDS: METOPROLOL TARTRATE 50 MG TAB PO ×2 (08:08→20:38)
--- NOTE | 2021-08-02 09:17 | PM.CNCAR ---
Assessment and Plan Additional Plan This is an 85-year-old lady presenting to the hospital with dyspnea and she has several factors contributing to this. Of course she is in chronic atrial fibrillation for a number of years. That is being managed with rate control and anticoagulation. In addition to this she appears to have significant mitral valve regurgitation by echo several weeks ago. At her advanced age she would certainly not be a low risk candidate for mitral valve repair or replacement. I am not sure if there has been any significant discussion with her prior to this morning about those options. In addition to this she is significantly anemic and this does need to be worked up and diagnosed. Since there is no evidence of blood loss, she has normocytic indices and had negative endoscopic studies recently I might suggest a Hematology consultation with an eye towards for bone marrow examination. For now her furosemide will be continued and we probably should consider CRISPIN while she is in the hospital if mitral valve repair is going to be considered an option. She will think about this overnight Aurelio Chamberlain MD [facility] History of Present Illness History of Present Illness Consult date/time: 08/02/21 09:17 Consult reason: atrial fibrillation and congestive heart failure Reason For Visit: AFIB, CHF Narrative: This is an 85-year-old woman I am seeing this morning at the request of the hospitalist for assistance with the evaluation of congestive heart failure. The patient has a history of chronic atrial fibrillation and follows for a number of years in our office with Dr. Kumar. The patient has been managed with rate control and anticoagulation. She has been doing well until recently when she has been in the hospital several times now and visited the emergency room a couple of times with dyspnea. The patient came to the emergency room last evening with worsening dyspnea. Her evaluation includes a chest x-ray that does demonstrate bibasilar congestion more so on the right side than on the left and she does have a small right pleural effusion that seems to be worsening compared with recent previous studies. She has been noticing increasing shortness of breath for about a month or 2. She was hospitalized here with this in the 1st part of this month an echocardiogram at that time demonstrated preserved left ventricular systolic function, thickening of the mitral valve leaflets with moderate to severe mitral valve regurgitation and significant left atrial dilatation. Also of significance is that she has been found to be significantly anemic hemoglobin at the time of this admission is 7.7 g. It was about 6.5 g the last time she was here I believe. She has normal sitting in disease. According to the chart it looks like she has had upper and lower endoscopy presumably looking for workup of this anemia. She has not noticed any melanotic stool hematochezia or hematemesis. It is not clear to me if any further workup of the anemia has been performed outside of the hospital. Yesterday she came back to the hospital as described above she was given some intravenous furosemide she does feel notably better this morning. She was not on any diuretic regimen prior to coming in the hospital. Her medications included reduced dose of apixaban because of her atrial fibrillation as well as metoprolol and losartan. She is not known to have coronary artery disease as far as I can tell from looking at the chart she is not experiencing any ischemic type symptomatology. Review of Systems Constitutional: Constitutional: Reports lethargy Eyes: Eyes: Reports no additional eye complaints ENT: Reports system reviewed and no additional complaints, except as documented Cardiovascular: Cardiovascular: Reports as per HPI Respiratory: Respiratory: Reports dyspnea Gastrointestinal: Gastrointestinal: Reports no additional gastrointestinal complaints Musculoskeletal:
--- NOTE | 2021-08-02 12:59 | WPDURCON ---
Assessment and Plan Assessment and plan (1) Obstruction of left ureteropelvic junction (UPJ): Code(s): N13.5 - Crossing vessel and stricture of ureter without hydronephrosis Status: Acute Assessment and Plan: Patient with nephrostomy tube in place, this is currently draining clear yellow urine without issue. CT 07/29/2021 demonstrated this tube was in good position. Do not expect this will cause issue in the near term as patient's heart failure exacerbation is being managed. (2) Staghorn renal calculus: Code(s): N20.0 - Calculus of kidney Status: Acute Assessment and Plan: Asymptomatic at present Continue expected management as patient is being managed for heart failure exacerbation (3) Acute renal failure: Code(s): N17.9 - Acute kidney failure, unspecified Status: Acute Assessment and Plan: Creatinine was 1.7 on presentation. This morning is back near baseline of 1.4 -continue to monitor, but at present do not see evidence of obstructive renal insufficiency (4) CHF (congestive heart failure): Onset Date: ~08/01/21 Qualifiers: Heart failure chronicity: unspecified Heart failure type: unspecified Qualified Code(s): I50.9 - Heart failure, unspecified Code(s): I50.9 - Heart failure, unspecified Status: Acute Assessment and Plan: Management per cardiology service Additional Plan Please notify our service if there are further urologic issues during her hospital stay. Otherwise would leave the left nephrostomy tube to drainage and continue diuresis as necessary. Patient should follow-up with Dr. Shaikh after hospitalization for ongoing management of her urologic issues. We will peripherally follow total duration of consult including history, exam, review of records, counselling, documentation - 20 minutes Urology Consult Note HPI Date Seen: 08/02/21 Requesting Physician: Kain Roca MD Primary Care Provider: Andrés Viveros, Consult Narrative Narrative: Nelia Peterson is a 85 year old female with history of congestive heart failure as well as a known right staghorn calculus and left ureteropelvic junction obstruction managed by my colleague Dr. Shaikh admitted to the hospital for CHF exacerbation yesterday neurology is consulted for recommendations regarding management of urinary tract given indwelling left nephrostomy tube. Patient presented emergency department yesterday with progressive shortness of breath for several days her BNP was greater than 20,000 she was admitted to the cardiac unit for management of CHF exacerbation. Of note the patient has recently been under the care of our service after she was detected to have left hydronephrosis as well as a large staghorn calculus in the right kidney. Dr. Shaikh took her to the operating room on 07/17/2021 for attempt placement of a left ureteral stent, but was not able to negotiate past a very tight proximal ureteral narrowing, and ultimately there was a small ureteral perforation. Nephrostomy tube was placed at that time. Several days later return to the operating room attempt to again place a stent but this remained unsuccessful. She has been managed with nephrostomy tube since that time. Nephrostomy has been draining clear yellow urine per the patient. She continues to void some as well and this is also been clear yellow without dysuria, hematuria, or other concerning findings. Review of Systems Review of Systems: All systems reviewed & are unremarkable except as noted in HPI and below PMFSH Past Medical History Medical History Acute on chronic blood loss anemia (Unknown) Atrial fibrillation Cerebral aneurysm Status post coil embolization. Chronic kidney disease (Unknown) Degenerative disc disease Depression Dyslipidemia Endometriosis Hemorrhoids Histoplasmosis Hx of [facility] use of blood thinne
--- NOTE | 2021-08-02 13:07 | PM.IMPN ---
Progress Note: A&P Assessment and Plan (1) CHF (congestive heart failure): Onset Date: ~08/01/21 Qualifiers: Heart failure chronicity: unspecified Heart failure type: unspecified Qualified Code(s): I50.9 - Heart failure, unspecified Code(s): I50.9 - Heart failure, unspecified Status: Acute Assessment and Plan: - Acute on chronic finding. - Most recent ECHO from 07/2021 shows normal EF of 65%. - Cardiology consulted (2) Exertional dyspnea: Onset Date: Unknown Code(s): R06.00 - Dyspnea, unspecified Status: Acute Assessment and Plan: - improved, not on oxygen currently -monitor (3) Acute on chronic blood loss anemia: Onset Date: Unknown Code(s): D62 - Acute posthemorrhagic anemia Status: Acute Assessment and Plan: - monitor hgb (4) Chronic kidney disease: Onset Date: Unknown Qualifiers: Chronic kidney disease stage: unspecified stage Qualified Code(s): N18.9 - Chronic kidney disease, unspecified Code(s): N18.9 - Chronic kidney disease, unspecified Status: Chronic Assessment and Plan: - cr is at baseline, monitor (5) Paroxysmal atrial fibrillation: Code(s): I48.0 - Paroxysmal atrial fibrillation Status: Acute Assessment and Plan: - Chronic in nature. - Continue renally dosed Eliquis 2.5 mg po BID - Continue Metoprolol for rate control. -cardiology following (6) Obstruction of left ureteropelvic junction (UPJ): Code(s): N13.5 - Crossing vessel and stricture of ureter without hydronephrosis Status: Acute Assessment and Plan: - Consult Urology for co-management as she is their patient. (7) Intraoperative ureteral injury: Code(s): N99.81 - Other intraoperative complications of genitourinary system Status: Acute Assessment and Plan: - Consult Urology Subjective Date/time seen: 08/02/21 13:07 no new complaints sob improved not on oxygen feeling ok today Exam Const: General: comfortable and no acute distress HENMT: Mouth: Yes moist mucous membranes Eyes: Sclera: sclerae normal Pupils: Equal, round and reactive pupils present Neck: Neck: supple and no JVD Lymphatic: lymphadenopathy not noted Resp: Auscultation: rales (bilateral bases) bilateral Cardio: Rate: tachycardic Rhythm: abnormal rhythm GI: Auscultation: normal bowel sounds : Other: There is a left sided Nephrostomy tube draining a gold colored urine. No overt bleeding identified. Urinary Catheter: Urinary Catheter: other (Left flank urostomy tube present with gold urine draining.) Skin: General skin exam: normal color and no rashes or lesions noted Neuro: General: gait normal Cranial nerves: Yes Equal, round and reactive pupils present Cognition (Neuro): normal cognition Speech: normal speech Motor exam (neuro): 5/5 motor strength present throughout and Normal motor muscle tone present throughout Sensory Exam: normal sensation Extrem: General: normal to inspection Right upper extremity: normal to inspection Left upper extremity: normal to inspection Right lower extremity: normal to inspection Left lower extremity: normal to inspection Psych: Affect: Anxious affect present (Pt. anxious we won't be able to do drsg change to nephro tube tuesday.) Objective Data Vital Signs Vital Signs: Vital Signs - 24 hr 08/01/21 13:10 08/01/21 13:24 08/01/21 13:30 Temperature Pulse Rate 108 H 117 H 122 H Respiratory Rate 14 23 H 15 Blood Pressure Pulse Oximetry 08/01/21 13:45 08/01/21 13:46 08/01/21 13:48 Temperature 98.6 F Pulse Rate 112 H 111 H 121 H Respiratory Rate 17 15 19 Blood Pressure 139/109 H 139/98 H Pulse Oximetry 96 08/01/21 14:00 08/01/21 14:16 08/01/21 14:18 Temperature Pulse Rate 127 H 107 H Respiratory Rate 18 19 Blood Pressure 145/95 H Pulse Oximetry 93 08/01/21 14:46 08/01/21 14:57
--- NOTE | 2021-08-02 14:10 | PC.NURSE ---
This patient, Nelia Peterson, was transferred to [[facility] ] on 08/02/21 at 1410. Personal belongings sent with patient. Report given to [Nga ]. Appropriate documentation sent with patient.
--- NOTE | 2021-08-02 14:13 | PC.NURSE ---
This patient, Nelia Peterson, was received from [[facility]] on 08/02/21 at 1410. Patient/family oriented to unit policies and routines
[2021-08-02] MEDS: traMADol HCL (*CRX) 50 MG TABLET PO (20:38)
[2021-08-02] MEDS: ONDANSETRON HCL ODT 4 MG TABLET PO (23:33)
[2021-08-03] VITALS (7 sets, daily range): BP systolic 95–131; BP diastolic 68–107; PULSE 80–105; RESP 16–18; TEMP 36.2–36.4; O2SAT 94–98
[2021-08-03] MEDS: LEVOTHYROXINE SODIUM 50 MCG TABLET PO (06:22)
[2021-08-03] MEDS: CHOLECALCIFEROL 1,000 UNITS TABLET 2000 UNITS PO (08:24)
[2021-08-03] MEDS: METOPROLOL TARTRATE 50 MG TAB PO ×2 (08:25→21:59)
[2021-08-03] MEDS: buPROPion HCL SR (12 HR) 150 MG TAB PO ×2 (08:25→21:59)
[2021-08-03] MEDS: APIXABAN 2.5 MG TABLET PO ×2 (08:25→21:58)
[2021-08-03] MEDS: PRAVASTATIN SODIUM 20 MG TABLET 80 MG PO (08:25)
[2021-08-03] MEDS: MIRTAZAPINE 7.5 MG TABLET PO (08:27)
[2021-08-03] MEDS: LOSARTAN POTASSIUM 100 MG TABLET PO (08:29)
[2021-08-03] MEDS: FUROSEMIDE INJ 40 MG/4 ML VIAL IV PUSH ×2 (08:29→21:59)
[2021-08-03 09:22] LABS: Iron 17 ug/dL (37-170)
[2021-08-03 09:34] LABS: Percent Iron Saturation 4 % (20-50)
--- NOTE | 2021-08-03 09:50 | PM.PNCARD ---
Progress Note: A&P Assessment and Plan (1) CHF (congestive heart failure): Onset Date: ~08/01/21 Qualifiers: Heart failure chronicity: unspecified Heart failure type: unspecified Qualified Code(s): I50.9 - Heart failure, unspecified Code(s): I50.9 - Heart failure, unspecified Status: Acute Assessment and Plan: Some component of high-output heart failure in the setting of atrial fibrillation, diastolic dysfunction and mitral regurgitation. Continue IV diuretics. (2) Paroxysmal atrial fibrillation: Code(s): I48.0 - Paroxysmal atrial fibrillation Status: Acute Assessment and Plan: Heart rate is reasonably controlled at this point. Continue metoprolol. She has an appointment to see electrophysiology next month. She likely needs a Watchman device in order to get her off of anticoagulation completely. (3) Hypertension: Qualifiers: Hypertension type: essential hypertension Qualified Code(s): I10 - Essential (primary) hypertension Code(s): I10 - Essential (primary) hypertension Status: Acute (4) Anemia: Code(s): D64.9 - Anemia, unspecified Status: Acute Assessment and Plan: Significant. Recommend Hematology consultation (5) Mitral regurgitation: Code(s): I34.0 - Nonrheumatic mitral (valve) insufficiency Status: Acute Assessment and Plan: Moderate to severe Subjective Date/time seen: 08/03/21 09:50 Interval history: 85-year-old with atrial fibrillation, severe anemia, CHF, mitral regurgitation Date of service 08/03/2021: She states she feels much better. Breathing much more easily. No chest pain. Swelling is minimal Review of Systems Constitutional: Constitutional: Reports lethargy Eyes: Eyes: Reports no additional eye complaints ENT: Reports system reviewed and no additional complaints, except as documented Cardiovascular: Cardiovascular: Reports as per HPI and Reports dyspnea Respiratory: Respiratory: Reports dyspnea Gastrointestinal: Gastrointestinal: Reports no additional gastrointestinal complaints Musculoskeletal: Musculoskeletal: Reports no additional musculoskeletal complaints Integumentary/Breasts: Skin/Breast: Reports system reviewed and no additional complaints, except as docu Neurologic: Reports system reviewed and no additional complaints, except as documented Endocrine: Endocrine: Reports no additional endocrine complaints Hematologic/Lymphatic: Hematologic/Lymphatic: Reports no additional hematologic/lymphatic complaints Allergic/Immunologic: Allergic/Immunologic: Reports no additional allergic/immunologic complaints Exam Const: General: comfortable Other: Pleasant elderly lady seated on the side of her bed comfortable in no distress of any kind this morning HENMT: Mouth: Yes moist mucous membranes Eyes: Sclera: sclerae normal Neck: Neck: supple and no JVD Other: Carotid pulses are intact bilaterally there are no bruits audible over the neck Resp: Effort & Inspection: normal respiratory effort Other: Patient has some crackles at the right base. Cardio: Rhythm: abnormal rhythm irregularly irregular GI: Auscultation: normal bowel sounds Skin: General skin exam: normal color Neuro: Cognition (Neuro): normal cognition Extrem: Other: Minimal pretibial edema Psych: Appearance: grossly normal Objective Data Vital Signs Vital Signs: Vital Signs - 24 hr 08/02/21 10:00 08/02/21 12:00 08/02/21 20:38 Temperature 36.4 C Pulse Rate 104 H 104 H 104 H Respiratory Rate 12 Blood Pressure 108/71 Pulse Oximetry 99 08/02/21 21:54 08/03/21 00:10 08/03/21 05:35 Temperature 36.1 C L 36.4 C L Pulse Rate 105 H 96 80 Respiratory Rate 14 16 Blood Pressure 116/62 131/107 H Pulse Oximetry 100 97 94 08/03/21 08:25 Temperature Pulse Rate 105 H Respiratory Rate Blood Pressure Pulse Oximetry Intake/Output Intake/Output: Intake & Outp
[2021-08-03 10:31] LABS: Folic Acid 10.8 ng/mL (2.76->20)
--- NOTE | 2021-08-03 10:53 | PM.IMPN ---
Progress Note: A&P Assessment and Plan (1) CHF (congestive heart failure): Onset Date: ~08/01/21 Qualifiers: Heart failure chronicity: unspecified Heart failure type: unspecified Qualified Code(s): I50.9 - Heart failure, unspecified Code(s): I50.9 - Heart failure, unspecified Status: Acute Assessment and Plan: Shortness of breath is much improved. Cardiology is also managing patient. Patient did receive diuresis and shortness of breath is much improved now auction. (2) Exertional dyspnea: Onset Date: Unknown Code(s): R06.00 - Dyspnea, unspecified Status: Acute Assessment and Plan: Improved. (3) Acute on chronic blood loss anemia: Onset Date: Unknown Code(s): D62 - Acute posthemorrhagic anemia Status: Acute Assessment and Plan: - monitor hgb (4) Chronic kidney disease: Onset Date: Unknown Qualifiers: Chronic kidney disease stage: unspecified stage Qualified Code(s): N18.9 - Chronic kidney disease, unspecified Code(s): N18.9 - Chronic kidney disease, unspecified Status: Chronic Assessment and Plan: - cr is at baseline, monitor (5) Paroxysmal atrial fibrillation: Code(s): I48.0 - Paroxysmal atrial fibrillation Status: Acute Assessment and Plan: - Chronic in nature. - Continue renally dosed Eliquis 2.5 mg po BID - Continue Metoprolol for rate control. -cardiology managing (6) Obstruction of left ureteropelvic junction (UPJ): Code(s): N13.5 - Crossing vessel and stricture of ureter without hydronephrosis Status: Acute Assessment and Plan: - Consult Urology (7) Intraoperative ureteral injury: Code(s): N99.81 - Other intraoperative complications of genitourinary system Status: Acute Assessment and Plan: - Consult Urology (8) Anemia: Code(s): D64.9 - Anemia, unspecified Status: Acute Assessment and Plan: Unknown origin. Hemoglobin is chronically around 7. Workup pending, Hematology has been consulted. Subjective Date/time seen: 08/03/21 10:53 Patient is feeling well. No complaints of chest pain, shortness of breath is improving. Review of Systems Review of Systems: 10 point ROS negative except as stated in HPI / Subjective Exam Narrative: General: alert and oriented Psych: appropriate mood nad affect Eyes: PERRLA Neck: Trachea midline, no new lesions Skin: no changes Lungs: CTA Cardiac: Normal S1,S2, no MGR ABD: soft, nd, nt, nbs Ext: no new lesions, no cce Vasc: Pulses intact Objective Data Vital Signs Vital Signs: Vital Signs - 24 hr 08/02/21 12:00 08/02/21 20:38 08/02/21 21:54 Temperature 97.6 F 97.0 F L Pulse Rate 104 H 104 H 105 H Respiratory Rate 12 14 Blood Pressure 108/71 116/62 Pulse Oximetry 99 100 08/03/21 00:10 08/03/21 05:35 08/03/21 08:25 Temperature 97.5 F L Pulse Rate 96 80 105 H Respiratory Rate 16 Blood Pressure 131/107 H Pulse Oximetry 97 94 Intake/Output Intake/Output: Intake & Output 07/31/21 08/01/21 08/02/21 08/03/21 23:59 23:59 23:59 23:59 Intake Total 360 710 750 Output Total 1600 9660 7815 [facility] -3267 -6934 -927 Meds/Results Medications: Active Medications Generic Name Dose Route Start Last Admin Trade Name Freq PRN Reason Stop Dose Admin Apixaban 2.5 mg 08/01/21 21:00 08/03/21 08:25 Apixaban 2.5 Mg Tablet PO 2.5 mg Q12HR RUY Administration Bupropion HCl 150 mg 08/01/21 21:00 08/03/21 08:25 Bupropion Hcl Sr (12 Hr) 150 Mg Tab PO 150 mg Q12HR RUY Administration Furosemide 40 mg 08/01/21 21:00 08/03/21 08:29 Furosemide Inj 40 Mg/4 Ml Vial IV PUSH 40 mg Q12HR RUY Administration Levothyroxine Sodium 50 mcg 08/02/21 06:30 08/03/21 06:22 Levothyroxine Sodium 50 Mcg Tablet PO 50 mcg DAILY@0630 RUY Administration Losartan Potassium 100 mg 08/02/21 09:00 02
[2021-08-03 12:50] LABS: Reticulocyte Hemoglobin Conten 20.7 pg (28.2-35.7); Reticulocyte Percent 2.22 % (0.7-4.3); Reticulocytes Absolute 0.09 B/L (32.2-175.7)
--- NOTE | 2021-08-03 18:51 | PDONCCN ---
HPI - Date of Consult Date/Time: 08/03/21 18:51 Requesting Physician: Kain Roca MD Primary Care Provider: Andrés Viveros, - Consult Narrative Reason for consult: Anemia Narrative: Nelia Peterson is a 85 year old female with history of atrial fibrillation and chronic anemia along with chronic kidney disease. Patient also has history of left ureteral stricture status post left nephrostomy tube placement. She came into the hospital with shortness of breath and dyspnea on exertion along with hematuria. CT abdomen and pelvis done on July 29 showed a small left and moderate right pleural effusion with cholelithiasis and unchanged large nonobstructing right staghorn calculus. There was near complete resolution of left perinephric fluid collection. Labs showed hemoglobin of 7.7. Creatinine was 1.4 iron level was 17 with iron saturation of 4%. Patient Age EGD done on July 21 that came back normal. Colonoscopy showed diverticulosis without perforation or bleeding. There was internal hemorrhoids. She has been complaining of tiredness and fatigue. She denies any melena hematochezia. Review of Systems - Review of Systems All systems reviewed & are unremarkable except as noted in HPI and bel - Neurologic Reports system reviewed and no additional complaints, except as documented PMF Medical History: Medical History (Last Reviewed 08/02/21 @ 13:03 by Bright Correa MD) Acute on chronic blood loss anemia Onset Date: Unknown Atrial fibrillation Cerebral aneurysm Status post coil embolization. Chronic kidney disease Onset Date: Unknown Degenerative disc disease Depression Dyslipidemia Endometriosis Hemorrhoids Histoplasmosis Hx of long term care pharmacist use of blood thinners Hyperlipidemia Hypertension Hypothyroidism Intraoperative ureteral injury Kidney stones Including known right staghorn calculus. Nonspecific colitis Paroxysmal atrial fibrillation PONV (postoperative nausea and vomiting) Pulmonary embolism Stone, kidney Surgical History: Surgical History (Last Reviewed 08/02/21 @ 13:03 by Bright Correa MD) History of arthroplasty of right knee History of cataract extraction History of colonoscopy with polypectomy History of lumbar surgery History of tonsillectomy and adenoidectomy History of total hysterectomy with bilateral salpingo-oophorectomy (BSO) Status post coil embolization of cerebral aneurysm Family History: Family History (Last Reviewed 08/02/21 @ 13:03 by Bright Correa MD) Mother , in her 70s Hypertension Father Hypertension Acute myocardial infarction - Social History Social History: Social History (Last Reviewed 08/02/21 @ 13:03 by Bright Correa MD) Alcohol Use: Alcohol intake: never Drinks per week: 4 Alcohol use details: 6 oz of wine. Substance Use: Substance use: never Substance use type: does not use Others: Spiritual care concerns: No Smoking Status: Smoking status: Never smoker Tobacco type: cigarettes Smoking Pack-years: Smoking packs per day: 0.5 Smoking cigarettes per day: 10.0 Years smoked: 5 Smoking pack-years: 2.50 Meds Home Medications Medication Instructions Recorded Confirmed Type Belsomra 10 mg PO HS 11/19/19 08/01/21 History bupropion HCl 150 mg PO BID 11/19/19 08/01/21 History cholecalciferol (vitamin D3) 50 mcg PO DAILY 11/19/19 08/01/21 History [Vitamin D3] levothyroxine 50 mcg PO DAILY 11/19/19 08/01/21 History losartan 100 mg PO DAILY 11/19/19 08/01/21 History pravastatin 80 mg PO DAILY 11/19/19 08/01/21 History apixaban [Eliquis] 2.5 mg PO Q12HR #60 tablet 07/24/21 08/01/21 Rx metoprolol tartrate 50 mg PO Q12HR #60 tablet 07/24/21 08/01/21 Rx tramadol 50 mg PO Q6H PRN 08/01/21 08/01/21 History Allergies Allergy/AdvReac Type Severity Reaction Status Date / Time enoxaparin Allergy Se
[2021-08-03] MEDS: traMADol HCL (*CRX) 50 MG TABLET PO (21:19)
[2021-08-03] MEDS: ONDANSETRON HCL ODT 4 MG TABLET PO (21:19)
[2021-08-04] VITALS (7 sets, daily range): BP systolic 102–117; BP diastolic 62–70; PULSE 65–112; RESP 16–18; TEMP 36.2–36.5; O2SAT 94–98
[2021-08-04] MEDS: LEVOTHYROXINE SODIUM 50 MCG TABLET PO (06:25)
[2021-08-04] MEDS: buPROPion HCL SR (12 HR) 150 MG TAB PO ×2 (08:26→20:32)
[2021-08-04] MEDS: CHOLECALCIFEROL 1,000 UNITS TABLET 2000 UNITS PO (08:26)
[2021-08-04] MEDS: APIXABAN 2.5 MG TABLET PO ×2 (08:26→20:32)
[2021-08-04] MEDS: PRAVASTATIN SODIUM 20 MG TABLET 80 MG PO (08:26)
[2021-08-04] MEDS: METOPROLOL TARTRATE 50 MG TAB PO ×2 (08:27→20:32)
[2021-08-04] MEDS: LOSARTAN POTASSIUM 100 MG TABLET PO (08:29)
[2021-08-04] MEDS: FUROSEMIDE INJ 40 MG/4 ML VIAL IV PUSH (08:29)
--- NOTE | 2021-08-04 12:45 | PM.IMPN ---
Progress Note: A&P Assessment and Plan (1) CHF (congestive heart failure): Onset Date: ~08/01/21 Qualifiers: Heart failure chronicity: unspecified Heart failure type: unspecified Qualified Code(s): I50.9 - Heart failure, unspecified Code(s): I50.9 - Heart failure, unspecified Status: Resolved Assessment and Plan: Stop iv lasix today pt appears euthymic CHf improved (2) Exertional dyspnea: Onset Date: Unknown Code(s): R06.00 - Dyspnea, unspecified Status: Acute Assessment and Plan: Improved.CHF improved (3) Acute on chronic blood loss anemia: Onset Date: Unknown Code(s): D62 - Acute posthemorrhagic anemia Status: Acute Assessment and Plan: Hb is 7.7 pt is receiving venofer pt seen by Dr Lorenzo (4) Chronic kidney disease: Onset Date: Unknown Qualifiers: Chronic kidney disease stage: unspecified stage Qualified Code(s): N18.9 - Chronic kidney disease, unspecified Code(s): N18.9 - Chronic kidney disease, unspecified Status: Chronic Assessment and Plan: Creat is 1.4, continue to monitor (5) Paroxysmal atrial fibrillation: Code(s): I48.0 - Paroxysmal atrial fibrillation Status: Acute Assessment and Plan: - Chronic in nature. - Continue renally dosed Eliquis 2.5 mg po BID - Continue Metoprolol for rate control. - Cardiology rounding (6) Obstruction of left ureteropelvic junction (UPJ): Code(s): N13.5 - Crossing vessel and stricture of ureter without hydronephrosis Status: Acute Assessment and Plan: - Urology on the case pt is sp Cystoscopy, left ureteroscopy, left retrograde pyelography in a stent and attempted left ureteral stent placem (7) Intraoperative ureteral injury: Code(s): N99.81 - Other intraoperative complications of genitourinary system Status: Acute Assessment and Plan: - Pt is Cystoscopy, left ureteroscopy, left retrograde pyelography in a stent and attempted left ureteral stent placem (8) Anemia: Code(s): D64.9 - Anemia, unspecified Status: Acute Assessment and Plan: Unknown origin. Hemoglobin is chronically around 7. Workup pending, Hematology has been consulted. Subjective Date/time seen: 08/04/21 12:45 Interval history: 85-year-old with atrial fibrillation, severe anemia, CHF, mitral regurgitation. Pt has a complicated significant PMH of recent extensive urological issues including left ureteral stricture, status post left nephrostomy patient after left ureteral perforation secondary to attempted stent placement with failure, acute renal failure and UTI of E.coli with improvement in Creatinine to 1.4 today which is decreased from 1.8. In addition she has a right sided Staghorn calculus. Pt has a significant PMH of Atrial Fibrillation with RVR on chronic Eliquis, HTN, previous [place], acute on chronic anemia with a baseline of 7.5, cerebral aneurysm status post coiling, CKD, DJD, Depression, HLD, Histoplasmosis, Hypothyroidism, colitis, PE, to name a few who represented to the ER today with complaints of having worsening CHAN for the past 1-2 weeks. Pt is Cystoscopy, left ureteroscopy, left retrograde pyelography in a stent and attempted left ureteral stent placement Pt had egd and colonsocopy- EGD done on July 21 that came back normal. Colonoscopy showed diverticulosis without perforation or bleeding. There was internal hemorrhoids. Pt feels very dizzy today and is running low Bps Review of Systems Review of Systems: All systems reviewed & are unremarkable except as noted in HPI and below Exam Narrative: General: alert and oriented Eyes: PERRLA Neck: Trachea midline Lungs: clear to auscultation Cardiac: Normal S1,S2, ABD0: soft, NT Ext: no edema Objective Data Vital Signs Vital Signs: Vital Signs - 24 hr 08/03/21 14:00 08/03/21 21:42 08/03/21 21:59 Temper
[2021-08-04] MEDS: SODIUM CHLORIDE 0.9% IV 1,000 ML 75 ML IV CONT (12:53)
--- NOTE | 2021-08-04 14:16 | WPDCDIQUERY2 ---
CDI Query Clarification Request -08/02 Congestive Heart Failure, unspecified, documented - Acute on chronic finding. - Most recent ECHO from 07/2021 shows normal EF of 65%. - Cardiology consulted Please clarify type, diastolic or Systolic <Louise Larry - Last Filed: 08/04/21 14:27> Provider Comments Diastolic CHF <Alesha Ruiz MD - Last Filed: 08/05/21 17:39>
--- NOTE | 2021-08-04 15:23 | PM.PNCARD ---
Progress Note: A&P Assessment and Plan (1) CHF (congestive heart failure): Onset Date: ~08/01/21 Qualifiers: Heart failure chronicity: unspecified Heart failure type: unspecified Qualified Code(s): I50.9 - Heart failure, unspecified Code(s): I50.9 - Heart failure, unspecified Status: Resolved Assessment and Plan: Some component of high-output heart failure in the setting of atrial fibrillation, diastolic dysfunction and mitral regurgitation. DC IV diuretics. (2) Paroxysmal atrial fibrillation: Code(s): I48.0 - Paroxysmal atrial fibrillation Status: Acute Assessment and Plan: Heart rate is reasonably controlled at this point. Continue metoprolol. Continue low-dose Eliquis. She has an appointment to see electrophysiology next month. She likely needs a Watchman device in order to get her off of anticoagulation completely. (3) Hypertension: Qualifiers: Hypertension type: essential hypertension Qualified Code(s): I10 - Essential (primary) hypertension Code(s): I10 - Essential (primary) hypertension Status: Acute Assessment and Plan: At goal. Will reduce her losartan down to 50 mg daily. This will allow some blood pressure med over a if need be in order to increase her metoprolol (4) Anemia: Code(s): D64.9 - Anemia, unspecified Status: Acute Assessment and Plan: Significant. Recommend Hematology consultation (5) Mitral regurgitation: Code(s): I34.0 - Nonrheumatic mitral (valve) insufficiency Status: Acute Assessment and Plan: Moderate to severe Subjective Date/time seen: 08/04/21 15:23 Interval history: 85-year-old with atrial fibrillation, severe anemia, CHF, mitral regurgitation Date of service 08/03/2021: She states she feels much better. Breathing much more easily. No chest pain. Swelling is minimal Date of service 08/04/2021: Blood pressure dropped upon sitting today. She denies any chest pain or shortness of breath. Review of Systems Constitutional: Constitutional: Reports lethargy Eyes: Eyes: Reports no additional eye complaints ENT: Reports system reviewed and no additional complaints, except as documented Cardiovascular: Cardiovascular: Reports as per HPI and Reports dyspnea Respiratory: Respiratory: Reports dyspnea Gastrointestinal: Gastrointestinal: Reports no additional gastrointestinal complaints Musculoskeletal: Musculoskeletal: Reports no additional musculoskeletal complaints Integumentary/Breasts: Skin/Breast: Reports system reviewed and no additional complaints, except as docu Neurologic: Reports system reviewed and no additional complaints, except as documented Endocrine: Endocrine: Reports no additional endocrine complaints Hematologic/Lymphatic: Hematologic/Lymphatic: Reports no additional hematologic/lymphatic complaints Allergic/Immunologic: Allergic/Immunologic: Reports no additional allergic/immunologic complaints Exam Const: General: comfortable HENMT: Mouth: Yes moist mucous membranes Eyes: Sclera: sclerae normal Pupils: Equal, round and reactive pupils present Neck: Neck: supple and no JVD Resp: Effort & Inspection: normal respiratory effort Cardio: Rhythm: abnormal rhythm irregularly irregular GI: Auscultation: normal bowel sounds Skin: General skin exam: normal color Neuro: Cranial nerves: Yes Equal, round and reactive pupils present Cognition (Neuro): normal cognition Psych: Appearance: grossly normal Objective Data Vital Signs Vital Signs: Vital Signs - 24 hr 08/03/21 21:42 08/03/21 21:59 08/04/21 04:45 Temperature 36.2 C L Pulse Rate 103 H 100 Respiratory Rate 18 Blood Pressure 116/71 Pulse Oximetry 97 96 08/04/21 06:00 08/04/21 08:27 Temperature 36.5 C Pulse Rate 96 65 Respiratory Rate 16 Blood Pressure 102/70 Pulse Oximetry 96 Intake/Output Intake/Output: Intake & Output 02
[2021-08-04] MEDS: DOCUSATE SODIUM 100 MG CAPSULE 200 MG PO (17:30)
[2021-08-04] MEDS: traMADol HCL (*CRX) 50 MG TABLET PO (22:27)
[2021-08-05] VITALS (8 sets, daily range): BP systolic 94–112; BP diastolic 54–67; PULSE 80–100; RESP 14–18; TEMP 35.9–36.6; O2SAT 95–99
[2021-08-05] MEDS: LEVOTHYROXINE SODIUM 50 MCG TABLET PO (05:49)
[2021-08-05 08:00] LABS: Hematocrit 27.7 % (37.0-47.0); Mean Corpuscular HGB Conc 28.9 g/dl (32-36); Mean Corpuscular Hemoglobin 23.7 pg (26-34); Mean Corpuscular Volume 82.2 fl (80-100); Mean Platelet Volume 10.5 fl (7.4-10.4); Platelet Count Result 188 k/mm3 (150-375); Red Blood Count 3.37 M/mm3 (4.2-5.4); Red Cell Distribution Width 19.2 % (11.5-14.5); White Blood Count 6.1 K/mm3 (4.5-10.0)
[2021-08-05 08:09] LABS: Anion Gap 9 mmol/L (8-16); Blood Urea Nitrogen 41 mg/dL (7-17); Calcium 8.5 mg/dL (8.4-10.2); Carbon Dioxide 27 mmol/L (22-30); Chloride 105 mmol/L (98-107); Estimated CRCL calculation 18 ml/min; Estimated Glomerular Filt Rate 27; Glucose 85 mg/dL (65-110); Potassium 3.6 mmol/L (3.4-5.0); Sodium 141 mmol/L (137-145)
[2021-08-05] MEDS: CHOLECALCIFEROL 1,000 UNITS TABLET 2000 UNITS PO (08:27)
[2021-08-05] MEDS: METOPROLOL TARTRATE 50 MG TAB PO ×2 (08:27→21:01)
[2021-08-05] MEDS: APIXABAN 2.5 MG TABLET PO ×2 (08:27→21:01)
[2021-08-05] MEDS: PRAVASTATIN SODIUM 20 MG TABLET 80 MG PO (08:27)
[2021-08-05] MEDS: buPROPion HCL SR (12 HR) 150 MG TAB PO ×2 (08:29→21:02)
[2021-08-05] MEDS: LOSARTAN POTASSIUM 50 MG TABLET PO (08:29)
--- NOTE | 2021-08-05 13:07 | PM.PNCARD ---
Progress Note: A&P Assessment and Plan (1) CHF (congestive heart failure): Onset Date: ~08/01/21 Qualifiers: Heart failure chronicity: unspecified Heart failure type: unspecified Qualified Code(s): I50.9 - Heart failure, unspecified Code(s): I50.9 - Heart failure, unspecified Status: Resolved Assessment and Plan: Some component of high-output heart failure in the setting of atrial fibrillation, diastolic dysfunction and mitral regurgitation. (2) Paroxysmal atrial fibrillation: Code(s): I48.0 - Paroxysmal atrial fibrillation Status: Acute Assessment and Plan: Heart rate is reasonably controlled at this point. Continue metoprolol. Continue low-dose Eliquis. She has an appointment to see electrophysiology next month. She likely needs a Watchman device in order to get her off of anticoagulation completely. KCL 40 mEq p.o. x1 because of hypokalemia (3) Hypertension: Qualifiers: Hypertension type: essential hypertension Qualified Code(s): I10 - Essential (primary) hypertension Code(s): I10 - Essential (primary) hypertension Status: Acute Assessment and Plan: At goal. Continue lower dose losartan. This will allow some blood pressure med over a if need be in order to increase her metoprolol (4) Anemia: Code(s): D64.9 - Anemia, unspecified Status: Acute Assessment and Plan: Significant. Recommend Hematology consultation (5) Mitral regurgitation: Code(s): I34.0 - Nonrheumatic mitral (valve) insufficiency Status: Acute Assessment and Plan: Moderate to severe Subjective Date/time seen: 08/05/21 13:07 Interval history: 85-year-old with atrial fibrillation, severe anemia, CHF, mitral regurgitation Date of service 08/03/2021: She states she feels much better. Breathing much more easily. No chest pain. Swelling is minimal Date of service 08/04/2021: Blood pressure dropped upon sitting today. She denies any chest pain or shortness of breath. Date of service 08/05/2021: No chest pain, shortness of breath. Feels tired with walking Review of Systems Constitutional: Constitutional: Reports lethargy Eyes: Eyes: Reports no additional eye complaints ENT: Reports system reviewed and no additional complaints, except as documented Cardiovascular: Cardiovascular: Reports as per HPI and Reports dyspnea Respiratory: Respiratory: Reports dyspnea Gastrointestinal: Gastrointestinal: Reports no additional gastrointestinal complaints Musculoskeletal: Musculoskeletal: Reports no additional musculoskeletal complaints Integumentary/Breasts: Skin/Breast: Reports system reviewed and no additional complaints, except as docu Neurologic: Reports system reviewed and no additional complaints, except as documented Endocrine: Endocrine: Reports no additional endocrine complaints Hematologic/Lymphatic: Hematologic/Lymphatic: Reports no additional hematologic/lymphatic complaints Allergic/Immunologic: Allergic/Immunologic: Reports no additional allergic/immunologic complaints Exam Const: General: comfortable HENMT: Mouth: Yes moist mucous membranes Eyes: Sclera: sclerae normal Pupils: Equal, round and reactive pupils present Neck: Neck: supple and no JVD Resp: Effort & Inspection: normal respiratory effort Cardio: Rhythm: abnormal rhythm irregularly irregular GI: Auscultation: normal bowel sounds Skin: General skin exam: normal color Neuro: Cranial nerves: Yes Equal, round and reactive pupils present Cognition (Neuro): normal cognition Psych: Appearance: grossly normal Objective Data Vital Signs Vital Signs: Vital Signs - 24 hr 08/04/21 14:00 08/04/21 19:23 08/04/21 20:32 Temperature 36.2 C L Pulse Rate 77 112 H Respiratory Rate 18 Blood Pressure 112/62 Pulse Oximetry 98 94 08/04/21 20:35 08/05/21 05:36 08/05/21 08:27 Temperature 36.2 C L 35.9 C L Pulse Rate
[2021-08-05] MEDS: traMADol HCL (*CRX) 50 MG TABLET PO ×2 (13:30→22:17)
[2021-08-05] MEDS: POTASSIUM CHLORIDE 20 MEQ TABLET 40 MEQ PO (13:30)
[2021-08-05] MEDS: DOCUSATE SODIUM 100 MG CAPSULE 200 MG PO (16:13)
[2021-08-05 21:53] LABS: Haptoglobin 155 mg/dL (43-212)
[2021-08-06] MEDS: LEVOTHYROXINE SODIUM 50 MCG TABLET PO (05:30)
[2021-08-06 05:40] VITALS: BP 93/49; PULSE 95; RESP 14; TEMP 36.2; O2SAT 96
[2021-08-06 08:00] LABS: Hematocrit 28.9 % (37.0-47.0); Hemoglobin 8.2 g/dL (12.0-15.0); Mean Corpuscular HGB Conc 28.4 g/dl (32-36); Mean Corpuscular Hemoglobin 23.4 pg (26-34); Mean Corpuscular Volume 82.3 fl (80-100); Mean Platelet Volume 10.7 fl (7.4-10.4); Platelet Count Result 212 k/mm3 (150-375); Red Blood Count 3.51 M/mm3 (4.2-5.4); Red Cell Distribution Width 19.3 % (11.5-14.5); White Blood Count 6.1 K/mm3 (4.5-10.0)
--- NOTE | 2021-08-06 08:01 | PM.IMPN ---
Progress Note: A&P Assessment and Plan (1) CHF (congestive heart failure): Onset Date: ~08/01/21 Qualifiers: Heart failure chronicity: unspecified Heart failure type: unspecified Qualified Code(s): I50.9 - Heart failure, unspecified Code(s): I50.9 - Heart failure, unspecified Status: Resolved Assessment and Plan: Stop iv lasix today pt appears euthymic CHf improved Watch Bps cardiology rounding give fluid boluses if necessary for low BP Will need follow up with cardiology for AF, CHF and MR (2) Exertional dyspnea: Onset Date: Unknown Code(s): R06.00 - Dyspnea, unspecified Status: Acute Assessment and Plan: Improved.CHF improved (3) Acute on chronic blood loss anemia: Onset Date: Unknown Code(s): D62 - Acute posthemorrhagic anemia Status: Acute Assessment and Plan: Hb is 7.7 pt is receiving venofer pt seen by Dr Lorenzo, continue to monitor Hb (4) Chronic kidney disease: Onset Date: Unknown Qualifiers: Chronic kidney disease stage: unspecified stage Qualified Code(s): N18.9 - Chronic kidney disease, unspecified Code(s): N18.9 - Chronic kidney disease, unspecified Status: Chronic Assessment and Plan: Creat is 1.4, continue to monitor (5) Paroxysmal atrial fibrillation: Code(s): I48.0 - Paroxysmal atrial fibrillation Status: Acute Assessment and Plan: - Chronic in nature. - Continue renally dosed Eliquis 2.5 mg po BID - Continue Metoprolol for rate control. hold if bp runs low. - Cardiology rounding (6) Obstruction of left ureteropelvic junction (UPJ): Code(s): N13.5 - Crossing vessel and stricture of ureter without hydronephrosis Status: Acute Assessment and Plan: - Urology on the case pt is sp Cystoscopy, left ureteroscopy, left retrograde pyelography in a stent and attempted left ureteral stent placement Urology rounding see recommendations -pt has a nephrostomy tube in situ (7) Intraoperative ureteral injury: Code(s): N99.81 - Other intraoperative complications of genitourinary system Status: Acute Assessment and Plan: - Pt is Cystoscopy, left ureteroscopy, left retrograde pyelography in a stent and attempted left ureteral stent placement, pt will need to follow with urology on discharge (8) Anemia: Code(s): D64.9 - Anemia, unspecified Status: Acute Assessment and Plan: Unknown origin. Hemoglobin is chronically around 7. Workup pending, Hematology has been consulted. Pt will need to follow with hematology on discharge Subjective Date/time seen: 08/06/21 08:01 Interval history: 85-year-old with atrial fibrillation, severe anemia, CHF, mitral regurgitation. Pt has a complicated significant PMH of recent extensive urological issues including left ureteral stricture, status post left nephrostomy patient after left ureteral perforation secondary to attempted stent placement with failure, acute renal failure and UTI of E.coli with improvement in Creatinine to 1.4 today which is decreased from 1.8. In addition she has a right sided Staghorn calculus. Pt has a significant PMH of Atrial Fibrillation with RVR on chronic Eliquis, HTN, previous [place], acute on chronic anemia with a baseline of 7.5, cerebral aneurysm status post coiling, CKD, DJD, Depression, HLD, Histoplasmosis, Hypothyroidism, colitis, PE, to name a few who represented to the ER today with complaints of having worsening CHAN for the past 1-2 weeks. Pt is Cystoscopy, left ureteroscopy, left retrograde pyelography in a stent and attempted left ureteral stent placement Pt had egd and colonsocopy- EGD done on July 21 that came back normal. Colonoscopy showed diverticulosis without perforation or bleeding. There was internal hemorrhoids. Pt has been having low BPs and low HB levels pt on venofer. Awaiting improvement. Continue to monitor in the
[2021-08-06 08:10] LABS: Albumin Level 3.8 g/dL (3.5-5.1); Anion Gap 6 mmol/L (8-16); Blood Urea Nitrogen 35 mg/dL (7-17); Carbon Dioxide 27 mmol/L (22-30); Chloride 105 mmol/L (98-107); Estimated CRCL calculation 20 ml/min; Estimated Glomerular Filt Rate 31; Glucose 85 mg/dL (65-110); Magnesium 2.4 mg/dL (1.6-2.3); Potassium 4.7 mmol/L (3.4-5.0); Sodium 138 mmol/L (137-145)
[2021-08-06] MEDS: APIXABAN 2.5 MG TABLET PO (08:47)
--- NOTE | 2021-08-06 08:47 | PM.PNCARD ---
Progress Note: A&P Assessment and Plan (1) CHF (congestive heart failure): Onset Date: ~08/01/21 Qualifiers: Heart failure chronicity: unspecified Heart failure type: unspecified Qualified Code(s): I50.9 - Heart failure, unspecified Code(s): I50.9 - Heart failure, unspecified Status: Resolved Assessment and Plan: Some component of high-output heart failure in the setting of atrial fibrillation, diastolic dysfunction and mitral regurgitation. (2) Paroxysmal atrial fibrillation: Code(s): I48.0 - Paroxysmal atrial fibrillation Status: Acute Assessment and Plan: Heart rate is reasonably controlled at this point. Continue metoprolol. Continue low-dose Eliquis. She has an appointment to see electrophysiology next month. She likely needs a Watchman device in order to get her off of anticoagulation completely. (3) Hypertension: Qualifiers: Hypertension type: essential hypertension Qualified Code(s): I10 - Essential (primary) hypertension Code(s): I10 - Essential (primary) hypertension Status: Acute Assessment and Plan: At goal, somewhat hypotensive at times. Continue lower dose losartan. (4) Anemia: Code(s): D64.9 - Anemia, unspecified Status: Acute Assessment and Plan: Significant. Appreciate hematology recs (5) Mitral regurgitation: Code(s): I34.0 - Nonrheumatic mitral (valve) insufficiency Status: Acute Assessment and Plan: Moderate to severe Subjective Date/time seen: 08/06/21 08:48 Interval history: 85-year-old with atrial fibrillation, severe anemia, CHF, mitral regurgitation Date of service 08/03/2021: She states she feels much better. Breathing much more easily. No chest pain. Swelling is minimal Date of service 08/04/2021: Blood pressure dropped upon sitting today. She denies any chest pain or shortness of breath. Date of service 08/05/2021: No chest pain, shortness of breath. Feels tired with walking Date of service 08/06/2021: She feels okay today. No shortness of breath but she says that she is not getting out of bed much so somewhat difficult to tell. No chest pain, palpitations. Review of Systems Constitutional: Constitutional: Reports lethargy Eyes: Eyes: Reports no additional eye complaints ENT: Reports system reviewed and no additional complaints, except as documented Cardiovascular: Cardiovascular: Reports as per HPI and Reports dyspnea Respiratory: Respiratory: Reports dyspnea Gastrointestinal: Gastrointestinal: Reports no additional gastrointestinal complaints Musculoskeletal: Musculoskeletal: Reports no additional musculoskeletal complaints Integumentary/Breasts: Skin/Breast: Reports system reviewed and no additional complaints, except as docu Neurologic: Reports system reviewed and no additional complaints, except as documented Endocrine: Endocrine: Reports no additional endocrine complaints Hematologic/Lymphatic: Hematologic/Lymphatic: Reports no additional hematologic/lymphatic complaints Allergic/Immunologic: Allergic/Immunologic: Reports no additional allergic/immunologic complaints Exam Const: General: comfortable HENMT: Mouth: Yes moist mucous membranes Eyes: Sclera: sclerae normal Pupils: Equal, round and reactive pupils present Neck: Neck: supple and no JVD Resp: Effort & Inspection: normal respiratory effort Cardio: Rhythm: abnormal rhythm irregularly irregular GI: Auscultation: normal bowel sounds Skin: General skin exam: normal color Neuro: Cranial nerves: Yes Equal, round and reactive pupils present Cognition (Neuro): normal cognition Psych: Appearance: grossly normal Objective Data Vital Signs Vital Signs: Vital Signs - 24 hr 08/05/21 11:57 08/05/21 14:00 08/05/21 20:22 Temperature 36.6 C Pulse Rate 100 Respiratory Rate 18 Blood Pressure 94/54 L Pulse Oximetry 95 98 97 08/05/21 2
[2021-08-06 08:48] VITALS: PULSE 80
[2021-08-06] MEDS: CHOLECALCIFEROL 1,000 UNITS TABLET 2000 UNITS PO (08:48)
[2021-08-06] MEDS: buPROPion HCL SR (12 HR) 150 MG TAB PO (08:48)
[2021-08-06] MEDS: LOSARTAN POTASSIUM 50 MG TABLET PO (08:48)
[2021-08-06] MEDS: METOPROLOL TARTRATE 50 MG TAB PO (08:48)
[2021-08-06] MEDS: PRAVASTATIN SODIUM 20 MG TABLET 80 MG PO (08:49)
[2021-08-06] MEDS: traMADol HCL (*CRX) 50 MG TABLET PO (11:20)
[2021-08-06 14:00] VITALS: BP 103/52; PULSE 110; RESP 16; TEMP 36.4; O2SAT 100
--- NOTE | 2021-08-06 15:31 | PM.DS ---
DS: Admitting Diagnosis Discharge Date 08/06/21 Admitting Diagnosis Shortness of breath DS: Discharge Diagnosis Discharge Diagnosis (1) CHF (congestive heart failure): Onset Date: ~08/01/21 Qualifiers: Heart failure chronicity: unspecified Heart failure type: unspecified Qualified Code(s): I50.9 - Heart failure, unspecified Code(s): I50.9 - Heart failure, unspecified Status: Resolved (2) Exertional dyspnea: Onset Date: Unknown Code(s): R06.00 - Dyspnea, unspecified Status: Acute (3) Acute on chronic blood loss anemia: Onset Date: Unknown Code(s): D62 - Acute posthemorrhagic anemia Status: Acute (4) Chronic kidney disease: Onset Date: Unknown Qualifiers: Chronic kidney disease stage: unspecified stage Qualified Code(s): N18.9 - Chronic kidney disease, unspecified Code(s): N18.9 - Chronic kidney disease, unspecified Status: Chronic (5) Paroxysmal atrial fibrillation: Code(s): I48.0 - Paroxysmal atrial fibrillation Status: Acute (6) Obstruction of left ureteropelvic junction (UPJ): Code(s): N13.5 - Crossing vessel and stricture of ureter without hydronephrosis Status: Acute (7) Intraoperative ureteral injury: Code(s): N99.81 - Other intraoperative complications of genitourinary system Status: Acute (8) Anemia: Code(s): D64.9 - Anemia, unspecified Status: Acute (9) Mitral regurgitation: Code(s): I34.0 - Nonrheumatic mitral (valve) insufficiency Status: Acute DS: Summary Hospital Course Reason for hospitalization: 85yo female with recent multiple urologic procedures presents with complaints of shortness of breath. Please see H&P for details. Hospital Course: Patient presents emergency room with complaints of shortness of breath. Her blood pressure was elevated 151/106 and she was mildly tachycardic. Hemoglobin 7.7. Creatinine was 1.4. Anemia peers to be chronic although she was noted to be iron deficient. B12 and folate level were normal. This was monitored during hospital course and at time of discharge her hemoglobin was 8.2. She also has CKD. Creatinine at the time of discharge was 1.6. This is within her baseline. EKG on admission showed AFib with RVR and borderline R-wave progression and borderline ST T wave changes. BNP was 20K. Chest x-ray is consistent with pulmonary edema. She was treated with IV Lasix with improvement of her clinical condition. She was also given IV iron. Cardiology was consulted. Hematology also saw the patient. She has been up ambulating without assistance. Patient overall did well and was able to be discharged home on 08/06/2021. Status at Discharge Cognitive/behavioral status at discharge: Stable. Time Spent with Patient Time attestation: Total time spent providing and/or coordinating discharge services: 38 minutes Time spent: Greater than 30 minutes Exam Narrative: AF 97.6 103/52 110 16 100% ra Gen - NARD Chest - CTA bilaterally, nml RR CV -irregularly irregular. Abd -soft. Nontender. Nondistended. Back -left nephrostomy dressing was clean, dry and intact. Clear yellow urine in the nephrostomy bag. Ext - No pedal edema Psych - Nml mood and affect Skin - Warm and dry DS: Data Data Completed and Pending Labs on day of discharge: Labs from last 24 hours 08/06/21 08/06/21 08/03/21 07:55 07:55 08:59 WBC 6.1 RBC 3.51 L Hgb 8.2 L Hct 28.9 L MCV 82.3 MCH 23.4 L MCHC 28.4 L RDW 19.3 H Plt Count 212 MPV 10.7 H Haptoglobin 155 Sodium 138 Potassium 4.7 Chloride 105 Carbon Dioxide 27 Anion Gap 6 L BUN 35 H Creatinine 1.60 H Estim Creat Clear Calc 20 Estimated GFR 31 L Glucose 85 Calcium 9.0 Phosphorus 3.0 Magnesium 2.4 H Albumin 3.8 Discharge Plan Discharge Attending physician on discharge: Jovan
== END 2021-08-06 19:40 | disposition home health service (06) | DRG 291 ==
LOC: ANHED 15:06 → ANHIMU 15:48 → ANH3MEDSUR 08-02 14:26
PROVIDERS: Chiropractor; Emergency Medicine; Family Medicine; Admitting Provider Internal Medicine; Emergency Provider Nurse Practitioner Adult Health; PCP Internal Medicine; Visit Provider Internal Medicine
DX: I13.0 Hypertensive heart and chronic kidney disease with heart failure and stage 1 through stage 4 chronic kidney disease, or unspecified chronic kidney disease (principal); I50.33 Acute on chronic diastolic (congestive) heart failure; N17.9 Acute kidney failure, unspecified; D62 Acute posthemorrhagic anemia; N18.30 Chronic kidney disease, stage 3 unspecified; N20.0 Calculus of kidney; N13.5 Crossing vessel and stricture of ureter without hydronephrosis; N99.81 Other intraoperative complications of genitourinary system; R31.9 Hematuria, unspecified; Z20.822 Contact with and (suspected) exposure to COVID-19; I48.0 Paroxysmal atrial fibrillation; I25.2 Old myocardial infarction; I50.83 High output heart failure; I34.0 Nonrheumatic mitral (valve) insufficiency; D63.1 Anemia in chronic kidney disease; D50.9 Iron deficiency anemia, unspecified; E03.9 Hypothyroidism, unspecified; E78.5 Hyperlipidemia, unspecified; F32.A Depression, unspecified; Z79.01 Long term (current) use of anticoagulants; Z86.711 Personal history of pulmonary embolism; Z87.442 Personal history of urinary calculi; Z96.651 Presence of right artificial knee joint; Z90.710 Acquired absence of both cervix and uterus; Z90.722 Acquired absence of ovaries, bilateral; Z93.6 Other artificial openings of urinary tract status
CPT/HCPCS: 36415; 71046; 80048; 80053; 80069; 82607; 82746; 83010; 83540; 83550; 83735; 83880; 84484; 85025; 85027; 85046; 93005; 96374; 96376; 99285; A9270; C9803; G0378; J1756; J1940; J7030; U0003; U0005

== ENCOUNTER 2021-08-12 06:19 | Observation (INO) | payer MEDICARE, SELFPAY ==
--- NOTE | 2021-08-05 07:41 | HP_ITS ---
This report was moved to the correct visit, on 09/02/2021. Original report was signed by Nabil Shaikh MD on 08/05/21 [id number]. History of Present Illness History of Present Illness Consent: Risks, benefits, and alternatives have been discussed and questions answered. Patient agrees to proceed with procedure. Chief complaint: left UPJ obstruction, hydronephrosis Narrative: Nelia Peterson is a 85 year old female who has been known for years to have a large right staghorn calculus which she has opted not to treat. More recently she was found to have left hydronephrosis consistent with a left UPJ obstruction. During endoscopic evaluation for that there was a injury to her left ureter which prompted placement of a nephrostomy tube. That tube has now been in place for several weeks and she re-presented for cystoscopy with retrograde pyelography and attempted internal left ureteral stent placement. She is aware of the risks including, but not limited to, inability to place the stent, recurrent ureteral injury. Review of Systems Cardiovascular: Cardiovascular: Denies chest pain, Denies lightheadedness, Denies palpitations and Denies dyspnea Respiratory: Respiratory: Denies dyspnea Gastrointestinal: Gastrointestinal: Denies diarrhea, Denies nausea and Denies vomiting Genitourinary: Genitourinary: Denies hematuria and Denies dysuria Endocrine: Endocrine: Denies palpitations PMFSH Past Medical History Medical History Acute on chronic blood loss anemia (Unknown) Atrial fibrillation Cerebral aneurysm Status post coil embolization. 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 Nonspecific colitis Paroxysmal atrial fibrillation PONV (postoperative nausea and vomiting) Pulmonary embolism Stone, kidney Surgical History Surgical History History of arthroplasty of right knee History of cataract extraction History of colonoscopy with polypectomy History of lumbar surgery History of tonsillectomy and adenoidectomy History of total hysterectomy with bilateral salpingo-oophorectomy (BSO) Status post coil embolization of cerebral aneurysm Family History Family History Mother , in her 70s Hypertension Father Hypertension Acute myocardial infarction Social History Social History Social History: Surrogate decision maker: Code status: Full code. Smoking packs per day: 0.5 Smoking cigarettes per day: 10.0 Years smoked: 5 Smoking pack-years: 2.50 Smoking status: Never smoker Tobacco type: cigarettes Alcohol intake: never Drinks per week: 4 Alcohol use details: 6 oz of wine. Substance use: never Substance use type: does not use Additional living arrangements comments: as of September 2020. She and her had 3 children, all whom are . Additional occupation/education comments: Retired. Spiritual care concerns: No Meds Home Medications and Allergies Home Medications Medication Instructions Recorded Confirmed Type Belsomra 10 mg PO HS 11/19/19 08/01/21 History bupropion HCl 150 mg PO BID 11/19/19 08/01/21 History cholecalciferol (vitamin D3) 50 mcg PO DAILY
[2021-08-05 13:49] VITALS: BMI 25.7
--- NOTE | 2021-08-05 14:24 | PC.NURSE ---
Report to the Outpatient Waiting Room, entrance under the green pavilion located off [facility], at time _10:00AM on date _08/13/21 . OR Time: ___12:00PM . - You and your visitor will be asked a series of questions to screen for COVID 19 for your protection. - A mask is required within the hospital. Preoperative COVID Testing Requirements: No COVID Test needed if: (proof is required; if not received patient will have Rapid Test prior to entry) - Patient has received COVID Vaccine at least 14 days prior to procedure date or - Patient has positive COVID test result within last 90 days of surgery date. COVID Test needed if above criteria is not met If not COVID vaccinated a COVID test must be conducted within 72 hours of surgery and patient is asked to isolate self from time of testing until procedure. You will go to the [facility] for your COVID testing. The [facility] is located at the corner of [address] [facility]. You will only be called if COVID results are positive and your surgeon may reschedule your elective surgery date. Patients may have clear liquids (water, carbonated beverages, clear teas, apple juice) until 3 hours prior to surgery with a maximum of 20 ounces. - No food from midnight until time of surgery - Infants may have breast milk until 4 hours before surgery, infant formula 6 hours prior to surgery. - Children will be allowed to drink immediately following surgery. If applicable, please bring a bottle or sippy cup to assist with drinking. Juice, water, soda, and popsicles are readily available. For infants on formula, please bring formula the day of surgery. Pacifiers are allowed. Take the following medications with a SIP of water the morning of surgery: __BUPROPION, LEVOTHYROXINE, METOPROLOL, TRAMADOL NEEDED Medications to discontinue per physician HOLD_ELIQUIS PER DR SCHRADER, HOLD VITAMIN D 3 DAYS PRE-OP Date to take last dose___VITAMINS- 08/10/21 Please no make-up, nail citizen of [place], hairspray, perfume, deodorant, or body powder the day of surgery. No jewelry (including any body piercings) or valuables the day of surgery, leave them at home. Please take a shower or bath the night before, or the morning of, surgery with an antibacterial soap. Wear comfortable, loose fitting clothing. Children are encouraged to wear pajamas. - Jewelry must be removed prior to entering the operating room. Rings and piercings that are not removed may be cut off. - The hospital will not accept responsibility for valuables. - Please leave all valuables, including medications, at home the day of surgery. If you are going home after surgery, a licensed warehouse driver must drive you home. - NO public transportation without another adult. - We recommend that an adult stay with you for 24 hours following discharge. - We also recommend that you do not drive, make important decision, drink alcoholic beverages, or take any drugs that were not prescribed by your health care provider for at least 24 hours after your discharge time. For Pediatric surgeries, we recommend two adults accompany the child home (only one inside the building at this time). One visitor will be allowed to accompany the patient into the hospital. Patients visitor will be instructed to remain with patient at all times or leave the building. We will allow the visitor to come back to the postoperative area when patient is ready. Follow any additional instructions given to you from your surgeon. Telephone instructions given to ___PATIENT and asked if any additional questions and then verbalized understanding. Patient advised to call surgeon office or pre surgery nurse liaison [phone] if any additional questions.
[2021-08-12] VITALS (29 sets, daily range): BP systolic 115–158; BP diastolic 60–110; PULSE 61–125; RESP 16–18; TEMP 35.6–37.3; O2SAT 70–100; BMI 25.7
--- NOTE | ~2021-08-12 | XR_ITS ---
EXAMINATION: XR retrograde pyelo w/stent LT EXAM DATE: 08/13/2021 11:40 INDICATION: LT RETRO/STENT TECHNIQUE: Fluoroscopy used during XR retrograde pyelo w/stent LT performed by Dr. Nabil Shaikh MD, urologist. The radiologist Derrick Leggett M.D. dictating this report of the image(s) available wa s not present for the procedure. Total fluoroscopic time of 70 seconds The DAP for this procedure was 0.74 mGym2. A total of 5 images sent to PACS from the exam. Cine run(s) available for review. Correlation is made to CT abdomen pelvis 07/29/2021. FINDINGS: There is a percutaneous left-sided nephrostomy tube. Mild left hydronephrosis. Left ureter was cannulated and a left double-J ureteral stent was placed. Nephrostomy tube may have been removed after the stent placed. Large right renal pelvic stone. Correlate with procedure note. IMPRESSION: Internalized left ureteral stent. Reviewed, dictated and finalized at location A. [employer]
--- NOTE | 2021-08-12 08:26 | PC.NURSE ---
THIS COLLECTED URINE FROM NEPHROSTOMY TUBE NOTED ON SYSTEM CLEAN CATH THIS RN UPDATED LAB THAT URINE WAS COLLECTED FROM THE NEPHROSTOMY TUBE AND SPOKE WITH [place].
[2021-08-12 08:43] LABS: Add Urine Microscopic? YES; Appearance Urine Cloudy (Clear); Bacteria Urine Trace /hpf; Bilirubin Urine Negative (Negative); Color Urine Yellow (Yellow); Glucose Urine UA Negative (Negative); Ketones Urine Negative (Negative); Leukocyte Esterase Ur 3+ LEU/UL (Negative); Mucus Urine Rare /lpf; Nitrate Urine Negative (Negative); Protein Urine 3+ mg/dL (Negative); RBC Urine 21-50 /hpf (0-2); Specific Grav Ur 1.018 (1.001-1.035); Squamous Epithelial Cell Urine Rare /hpf (Few); Urobilinogen Urine Negative mg/dL (<2.0); WBC Urine 51-75 /hpf
[2021-08-12 08:44] LABS: Blood Urine Negative (Negative)
[2021-08-12 09:47] LABS: Basophils Absolute Auto 0.1 K/mm3 (0.0-0.1); Basophils Percent Auto 0.9 % (0.2-1.2); Eosinophils Absolute Auto 0.1 K/mm3 (0-0.3); Eosinophils Percent Auto 2.2 % (0-4.4); Hematocrit 33.1 % (37.0-47.0); Hemoglobin 9.3 g/dL (12.0-15.0); Immature Granulocyte Absolute 0.02 K/mm3 (0.00-0.031); Immature Granulocyte Percent A 0.4 % (0-0.5); Lymphocytes Absolute Auto 1.17 K/mm3 (0.9-3.2); Mean Corpuscular HGB Conc 28.1 g/dl (32-36); Mean Platelet Volume 10.5 fl (7.4-10.4); Monocytes Absolute Auto 0.3 K/mm3 (0.1-0.6); Monocytes Percent Auto 5.8 % (2.6-8.5); Neutrophils Absolute Auto 3.9 K/mm3 (1.3-6.7); Neutrophils Percent Auto 69.7 % (45.5-73.1); Platelet Count Result 154 k/mm3 (150-375); Red Blood Count 3.72 M/mm3 (4.2-5.4); Red Cell Distribution Width 25.4 % (11.5-14.5); White Blood Count 5.6 K/mm3 (4.5-10.0)
[2021-08-12 09:59] LABS: Alanine Aminotransferase 15 U/L (4-35); Alkaline Phosphatase 76 U/L (38-126); Anion Gap 8 mmol/L (8-16); Aspartate Amino Transferase 28 U/L (14-36); Bilirubin,Total 0.4 mg/dL (0.2-1.3); Blood Urea Nitrogen 19 mg/dL (7-17); Calcium 9.1 mg/dL (8.4-10.2); Carbon Dioxide 24 mmol/L (22-30); Chloride 111 mmol/L (98-107); Estimated CRCL calculation 25 ml/min; Estimated Glomerular Filt Rate 39; Glucose 90 mg/dL (65-110); Potassium 4.2 mmol/L (3.4-5.0); Sodium 143 mmol/L (137-145)
--- NOTE | 2021-08-12 10:00 | ED.GENADULT ---
HPI - General Adult General Chief complaint: Wound/Laceration Stated complaint: redness around nephrostomy Time Seen by Provider: 08/12/21 07:02 Source: RN notes reviewed History of Present Illness HPI narrative: Patient presents emergency department from home for burning around left nephrostomy tube. Patient states he has had a nephrostomy tube in on the left side for approximately past month and is scheduled to have surgery by Dr. Shaikh tomorrow to have a stent put in her left kidney with a nephrostomy tube to be removed states this morning she woke up with some burning around the nephrostomy tube she is afraid maybe she was having a reaction to the tape she denies any abdominal pain or fever she denies any itching around the region she denies any bleeding or redness around the skin or any other symptoms states the tube has been draining appropriately Related Data Home Medications Medication Instructions Recorded Confirmed bupropion HCl 150 mg PO BID 11/19/19 08/05/21 cholecalciferol (vitamin D3) 50 mcg PO DAILY 11/19/19 08/05/21 [Vitamin D3] levothyroxine 50 mcg PO QAM 11/19/19 08/05/21 pravastatin 80 mg PO DAILY 11/19/19 08/05/21 tramadol 50 mg PO Q6H PRN 08/01/21 08/05/21 Allergies Allergy/AdvReac Type Severity Reaction Status Date / Time hydrocodone AdvReac Intermediate Nausea Verified 08/05/21 13:44 codeine AdvReac Mild Nausea Verified 08/05/21 13:41 heparin AdvReac Mild Nausea Verified 08/05/21 13:41 Review of Systems Review of Systems: Gen.: Denies fevers or chills ENT: Denies congestion Respiratory: Denies shortness of breath or cough CV: Denies chest pain or palpitations GI: Denies abdominal pain nausea, emesis or diarrhea see HPI Musculoskeletal: Denies back pain or muscle pain Neuro: Denies numbness, tingling, weakness or focal weakness Skin: Denies rash Except as documented, all other systems reviewed and negative PMFSH Past Medical History Medical History Acute on chronic blood loss anemia (Unknown) Atrial fibrillation Cerebral aneurysm Status post coil embolization. Chronic kidney disease (Unknown) Degenerative disc disease Depression Dyslipidemia Endometriosis Hemorrhoids Histoplasmosis Hx of senior care use of blood thinners Hyperlipidemia Hypertension Hypothyroidism Intraoperative ureteral injury Kidney stones Including known right staghorn calculus. Nonspecific colitis Paroxysmal atrial fibrillation PONV (postoperative nausea and vomiting) Pulmonary embolism Stone, kidney Surgical History Surgical History History of arthroplasty of right knee History of cataract extraction History of colonoscopy with polypectomy History of lumbar surgery History of tonsillectomy and adenoidectomy History of total hysterectomy with bilateral salpingo-oophorectomy (BSO) Status post coil embolization of cerebral aneurysm Family History Family History Mother , in her 70s Hypertension Father Hypertension Acute myocardial infarction Social History Social History Social History: Surrogate decision maker: Code status: Full code. Smoking packs per day: 0.5 Smoking cigarettes per day: 10.0 Years smoked: 5 Smoking pack-years: 2.50 Smoking status: Never smoker Tobacco type: cigarettes Alcohol intake: current Drinks per week: 4 Alcohol use details: 6 oz of wine. Substance use: never Substance use type: does not use Additional living arrangements comments: as of September 2020. She and her had 3 children, all whom are . Additional occupation/education comments: Retired. Spiritual care concerns: No Exam Narrative: APPEARANCE: No acute distress, nontoxic, resting in bed EYES: EOMI HELAUREN
--- NOTE | 2021-08-12 12:37 | PN_ITS ---
This report was moved to the correct visit, on 09/02/2021. Original report was signed by Geovanny Samuels MD on 08/13/21 [id number]. Anes - Initial Pre Proc Eval Procedure: Operation Date: 08/13/21 12:00 Proposed Procedures p Cystoscopy, Left Retrograde Pyelogram, Left Stent Placement - Nabil Shaikh MD Date/Time: 08/12/21 12:37 Surgeon: Nabil Shaikh MD Pre Op Diagnosis: left UPJ obstruction, hydronephrosis Patient Data Age: 85 Gender: F Height: 1.63 m Weight: 68 kg Allergies Allergy/AdvReac Type Severity Reaction Status Date / Time hydrocodone AdvReac Intermediate Nausea Verified 08/12/21 14:20 codeine AdvReac Mild Nausea Verified 08/12/21 14:20 heparin AdvReac Mild Nausea Verified 08/12/21 14:20 Home Medications Medication Instructions Recorded Confirmed Type bupropion HCl 150 mg PO BID 11/19/19 08/12/21 History cholecalciferol (vitamin D3) 50 mcg PO DAILY 11/19/19 08/12/21 History [Vitamin D3] levothyroxine 50 mcg PO QAM 11/19/19 08/12/21 History pravastatin 80 mg PO DAILY 11/19/19 08/12/21 History Eliquis 2.5 mg PO Q12HR #60 tablet 07/24/21 08/12/21 Rx metoprolol tartrate 50 mg PO Q12HR #60 tablet 07/24/21 08/12/21 Rx tramadol 50 mg PO Q6H PRN 08/01/21 08/12/21 History ascorbic acid (vitamin C) [Vitamin 500 mg PO DAILY #30 tablet 08/06/21 08/12/21 Rx C] ferrous sulfate 325 mg PO BID #60 tablet 08/06/21 08/12/21 Rx furosemide 20 mg PO DAILY PRN #30 tablet 08/06/21 08/12/21 Rx losartan [Cozaar] 25 mg PO DAILY #30 tablet 08/06/21 08/12/21 Rx docusate sodium 100 mg PO BID PRN 08/12/21 08/12/21 History hydrocodone-acetaminophen [[place]] 1 tablet PO Q6H PRN 08/12/21 08/12/21 History Patient hx anesthesia problems: none Family hx anesthesia problems: none Results Review: All pre-operative results and documents have been reviewed as part of the pre-operative evaluation. [facility] Past Medical History Medical History Cerebral aneurysm Status post coil embolization. Chronic kidney disease Current use of joint terminal attack controller anticoagulation Degenerative disc disease Depression Diastolic congestive heart failure Dyslipidemia Endometriosis Hemorrhoids Histoplasmosis Hyperlipidemia Hypertension Hypothyroidism Intraoperative ureteral injury (07/2021) Kidney stones Including known right staghorn calculus. Nonspecific colitis Paroxysmal atrial fibrillation Pulmonary embolism Surgical History Surgical History History of arthroplasty of right knee History of cataract extraction History of colonoscopy with polypectomy History of cystoscopy History of lumbar surgery History of tonsillectomy and adenoidectomy History of total hysterectomy with bilateral salpingo-oophorectomy (BSO) Status post coil embolization of cerebral aneurysm Family History Family History Mother , in her 70s Hypertension Father Hypertension Acute myocardial infarction Social History Social History Social History: Surrogate decision maker: Seth Peterson, grandson. Code status: Full code. Smoking status: Never smoker Second hand tobacco smoke exposure: No Alcohol intake: current Drinks per week: 4 Alcohol use details: 6 oz of wine. Substance use: never Substance use type: does not use Living arrangements: alone Enrique celeste
--- NOTE | 2021-08-12 12:45 | PM.IMHP ---
H&P: HPI History of Present Illness Date/Time: 08/12/21 12:45 Chief Complaint: Burning sensation around nephrostomy tube. Narrative: This is an 85-year-old female with history kidney stones including staghorn calculi, chronic kidney disease, hypertension, diastolic congestive heart failure, paroxysmal atrial fibrillation, anemia, hypothyroidism, and other comorbidities who presented to the emergency department for evaluation of a burning sensation around her nephrostomy tube. She is known to myself and the hospitalist service from a recent admission last month at which time she presented to the ER with left-sided back pain and shortness of breath. Renal ultrasound and a subsequent Lasix renal scan demonstrated significant hydronephrosis and evidence of a high-grade obstruction. She was taken to the OR for cystoscopy and attempted placement of a left ureteral stent however she had proximal narrowing of the ureter and ultimately there was a small ureteral perforation and a nephrostomy tube was placed. Several days later she returned to the OR for another attempt at placing the stent which was again unsuccessful and she was discharged with a nephrostomy tube still in place. Her shortness of breath was attributed to acute on chronic anemia (hemoglobin 6.8) for which she received 1 unit of packed red blood cells. She was readmitted the following week with a CHF exacerbation, did well with diuresis, and she was discharged home on 08/06/2021. Upon waking this morning she had a burning discomfort along the nephrostomy tube radiating to the left flank and abdomen in addition to chills and mild dysuria. Her urinalysis today was abnormal and she is being admitted for IV antibiotics as she is scheduled to have another cystoscopy tomorrow with hopes of left ureteral stent placement and removal of the nephrostomy tube. She denies fever, cold and flu symptoms, nausea, vomiting, and diarrhea. She has not noticed any discharge coming from around the nephrostomy tube and there is no redness or swelling around the tube either, to the patient's knowledge. Review of Systems Review of Systems: Twelve systems were reviewed and are negative except for as per HPI. [facility] Past Medical History Medical History Cerebral aneurysm Status post coil embolization. Chronic kidney disease Current use of nursing home anticoagulation Degenerative disc disease Depression Diastolic congestive heart failure Dyslipidemia Endometriosis Hemorrhoids Histoplasmosis Hyperlipidemia Hypertension Hypothyroidism Intraoperative ureteral injury (07/2021) Kidney stones Including known right staghorn calculus. Nonspecific colitis Paroxysmal atrial fibrillation Pulmonary embolism Surgical History Surgical History History of arthroplasty of right knee History of cataract extraction History of colonoscopy with polypectomy History of cystoscopy History of lumbar surgery History of tonsillectomy and adenoidectomy History of total hysterectomy with bilateral salpingo-oophorectomy (BSO) Status post coil embolization of cerebral aneurysm Family History Family History Mother , in her 70s Hypertension Father Hypertension Acute myocardial infarction Social History Social History Social History: Surrogate decision maker: Seth Nicholas, grandson. Code status: Full code. Smoking status: Never smoker Second hand tobacco smoke exposure: No Alcohol intake: current Drinks per week: 4 Alcohol use details: 6 oz of wine. Substance use: never Substance use type: does not use Additional living arrangements comments: as of September 2020. She and her had 3 children, all whom are . Additional occupation/education co
--- NOTE | 2021-08-12 13:25 | WPDURCON ---
Assessment and Plan Assessment and plan (1) Acute UTI: Code(s): N39.0 - Urinary tract infection, site not specified Status: Acute Assessment and Plan: Start Rocephin, urine culture pending, tailor antibiotics to culture sensitivity report. (2) Acute renal insufficiency: Code(s): N28.9 - Disorder of kidney and ureter, unspecified Status: Acute Assessment and Plan: Creatinine is stable at 1.30 (3) Malfunction of nephrostomy tube: Code(s): T83.098A - Other mechanical complication of other urinary catheter, initial encounter Status: Acute Assessment and Plan: Nephrostomy tube appears to be draining to gravity, is yellow in color and insertion site is clean, dry, non edematous, no redness present. (4) Obstruction of left ureteropelvic junction (UPJ): Code(s): N13.5 - Crossing vessel and stricture of ureter without hydronephrosis Status: Acute Assessment and Plan: The patient will still plan to proceed tomorrow as planned for a Cystoscopy, left ureteroscopy with stent placement, left retrograde pyelogram with Dr. Shaikh. Keep NPO after midnight, obtain consent. (5) Staghorn renal calculus: Code(s): N20.0 - Calculus of kidney Status: Acute Assessment and Plan: right kidney, no plans to intervene at this time, the left kidney is the priority. Urology Consult Note HPI Date Seen: 08/12/21 Requesting Physician: Rekha Lee MD Primary Care Provider: Andrés Viveros, Consult Narrative Narrative: Nelia Peterson is a 85 year old female who is well known to our practice, presented to the ER this morning with c/o burning pain in the left upper and lower abdominal quadrants. She has a history of a right staghorn stone, right renal atrophy, and severe left hydronephrosis. She currently has a left nephrostomy tube in that was placed by IR on 07/17/2021 after an attempt to place a left stent by Dr. Shaikh on 07/17/2021 which unfortunately was not accomplished d/t severe left UPJ obstruction and ureteral detachment. She was then attempted to have another left stent placed by Dr. Shaikh on which was also unsuccessful. The plan was then to discharge her home since her creatinine had stabilized with the nephrostomy tube in place and attempt a left stent placement and left nephrostomy tube removal on 08/13/21 as an outpatient procedure with Dr. Shaikh. Her current WBC is 5.6, creatinine is 1.30 and UA is positive for infection. She has had multiple CT scans throughout her last two admissions starting on 07/14/21 which showed a right staghorn stone, right renal atrophy, severe left hydronephrosis which was new from 01/26/17. She then had a renal lasix scan on 07/16/21 prior to her nephrostomy tube placement that showed moderate delayed clearance from the right kidney and severely delayed left kidney clearance consistent with obstruction. She denies fever, flank pain, purulent drainage from her nephrostomy tube or hematuria from the nephrostomy tube. Review of Systems Cardiovascular: Cardiovascular: Denies chest pain Respiratory: Respiratory: Reports no additional respiratory complaints Gastrointestinal: Gastrointestinal: Reports abdominal pain, Denies nausea and Denies vomiting Genitourinary: Genitourinary: Denies hematuria, Denies dysuria, Denies pelvic pain, Denies flank pain, Denies urinary hesitancy and Denies urinary urgency [facility] Past Medical History Medical History Cerebral aneurysm Status post coil embolization. Chronic kidney disease Current use of care home anticoagulation Degenerative disc disease Depression Diastolic congestive heart failure Dyslipidemia Endometriosis Hemorrhoids Histoplasmosis Hyperlipidemia Hypertension Hypothyroidism Intraoperative ureteral injury (07/2021) Kidney stones Including known right staghorn calculus. Nonspecific colitis Paroxysmal atrial fibr
--- NOTE | 2021-08-12 13:44 | ADMGEN ---
This patient, Nelia Peterson, was admitted to [facility] Surg Room 302-01. Patient/family oriented to hospital policies and general routines including ID bracelet, bed and alarms, visiting hours, pain management, procedures, bathroom and other care routines, personal items, smoking policy, room service/diet, and visiting hours. Information on how to activate the Rapid Response Team has been discussed. Patient/Family are encouraged to report perceived risks to care and to ask questions if they do not understand what they are told or what they should do.
[2021-08-12] MEDS: traMADol HCL (*CRX) 50 MG TABLET PO (18:43)
[2021-08-12] MEDS: buPROPion HCL SR (12 HR) 150 MG TAB PO (20:08)
[2021-08-12] MEDS: METOPROLOL TARTRATE 50 MG TAB PO (20:08)
[2021-08-13] VITALS (15 sets, daily range): BP systolic 95–150; BP diastolic 65–87; PULSE 92–101; RESP 12–20; TEMP 35.8–37.1; O2SAT 92–100
[2021-08-13] MEDS: MORPHINE SULFATE (*CRX) 2 MG/ML INJ IV PUSH (05:59)
[2021-08-13 06:04] LABS: Basophils Absolute Auto 0.1 K/mm3 (0.0-0.1); Basophils Percent Auto 0.9 % (0.2-1.2); Eosinophils Absolute Auto 0.2 K/mm3 (0-0.3); Eosinophils Percent Auto 4.2 % (0-4.4); Hematocrit 30.1 % (37.0-47.0); Hemoglobin 8.5 g/dL (12.0-15.0); Immature Granulocyte Absolute 0.01 K/mm3 (0.00-0.031); Immature Granulocyte Percent A 0.2 % (0-0.5); Lymphocytes Absolute Auto 0.95 K/mm3 (0.9-3.2); Lymphocytes Percent Auto 16.5 % (18.3-44.2); Mean Corpuscular HGB Conc 28.2 g/dl (32-36); Mean Corpuscular Hemoglobin 24.9 pg (26-34); Mean Platelet Volume 10.6 fl (7.4-10.4); Monocytes Absolute Auto 0.4 K/mm3 (0.1-0.6); Monocytes Percent Auto 7.3 % (2.6-8.5); Neutrophils Absolute Auto 4.1 K/mm3 (1.3-6.7); Neutrophils Percent Auto 70.9 % (45.5-73.1); Platelet Count Result 136 k/mm3 (150-375); Red Blood Count 3.42 M/mm3 (4.2-5.4); White Blood Count 5.8 K/mm3 (4.5-10.0)
[2021-08-13 06:06] LABS: Anion Gap 8 mmol/L (8-16); Blood Urea Nitrogen 24 mg/dL (7-17); Calcium 8.7 mg/dL (8.4-10.2); Carbon Dioxide 20 mmol/L (22-30); Chloride 111 mmol/L (98-107); Estimated CRCL calculation 23 ml/min; Estimated Glomerular Filt Rate 36; Glucose 91 mg/dL (65-110); Magnesium 2.2 mg/dL (1.6-2.3); Potassium 4.3 mmol/L (3.4-5.0); Sodium 139 mmol/L (137-145)
--- NOTE | 2021-08-13 06:18 | HP_ITS ---
This report was moved to the correct visit, on 09/02/2021. Original report was signed by Nabil Shaikh MD on 08/13/21617. History and Physical Update Update Date/Time: 08/13/21 06:17 History and Physical has been reviewed, including an updated exam of the patient. There are NO changes in the patient's condition. Risks, benefits, and alternatives have been discussed and questions answered. Patient agrees to proceed with procedure. This dictation may have been done utilizing a voice recognition system. Attempts have been made to correct errors. However, there may be uncorrected grammatical, spelling, and recognition errors present. Report Initialized date/time: Nabil Shaikh MD 08/13/21617 Electronically signed by: Nabil Shaikh MD 08/13/21617 [facility]
[2021-08-13 07:03] LABS: Anisocytosis 1+ (NORMAL); Hypochromasia 1+ (NORMAL); Microcytosis 1+ (NORMAL); Platelet Estimate Decreased (Adequate)
[2021-08-13] MEDS: CHLORHEXIDINE GLUCONATE 4% SOL 120 ML BTL 1 APPLIC (08:20)
--- NOTE | 2021-08-13 10:33 | PC.NURSE ---
Pt transferred to surgery via stretcher at 1034.
[2021-08-13] MEDS: LACTATED RINGERS 1,000 ML 30 ML IV CONT ×2 (10:45)
--- NOTE | 2021-08-13 10:47 | WPDANESEPPF ---
Anes - Initial Pre Proc Eval Procedure: Operation Date: 08/13/21 12:00 Proposed Procedures p Cystoscopy, Left Retrograde Pyelogram, Left Stent Placement - Nabil Shaikh MD Date/Time: 08/13/21 10:47 Surgeon: PATRICIA Gordon Pre Op Diagnosis: UTI/left nephrostomy tube Patient Data Age: 85 Gender: F Height: 1.63 m Weight: 72.8 kg Last Vital Signs Temp 36.9 C 08/13/21 05:32 Pulse 92 08/13/21 05:32 Resp 18 08/13/21 06:00 BP 143/77 H 08/13/21 05:32 Pulse Ox 95 08/13/21 08:24 Allergies Allergy/AdvReac Type Severity Reaction Status Date / Time hydrocodone AdvReac Intermediate Nausea Verified 08/12/21 14:20 codeine AdvReac Mild Nausea Verified 08/12/21 14:20 heparin AdvReac Mild Nausea Verified 08/12/21 14:20 Home Medications Medication Instructions Recorded Confirmed Type bupropion HCl 150 mg PO BID 11/19/19 08/12/21 History cholecalciferol (vitamin D3) 50 mcg PO DAILY 11/19/19 08/12/21 History [Vitamin D3] levothyroxine 50 mcg PO QAM 11/19/19 08/12/21 History pravastatin 80 mg PO DAILY 11/19/19 08/12/21 History Eliquis 2.5 mg PO Q12HR #60 tablet 07/24/21 08/12/21 Rx metoprolol tartrate 50 mg PO Q12HR #60 tablet 07/24/21 08/12/21 Rx tramadol 50 mg PO Q6H PRN 08/01/21 08/12/21 History ascorbic acid (vitamin C) [Vitamin 500 mg PO DAILY #30 tablet 08/06/21 08/12/21 Rx C] ferrous sulfate 325 mg PO BID #60 tablet 08/06/21 08/12/21 Rx furosemide 20 mg PO DAILY PRN #30 tablet 08/06/21 08/12/21 Rx losartan [Cozaar] 25 mg PO DAILY #30 tablet 08/06/21 08/12/21 Rx docusate sodium 100 mg PO BID PRN 08/12/21 08/12/21 History hydrocodone-acetaminophen [[place]] 1 tablet PO Q6H PRN 08/12/21 08/12/21 History Laboratory Tests 08/13/21 08/13/21 05:13 05:13 WBC 5.8 K/mm3 K/mm3 (4.5-10.0) RBC 3.42 M/mm3 L M/mm3 (4.2-5.4) Hgb 8.5 g/dL L g/dL (12.0-15.0) Hct 30.1 % L % (37.0-47.0) MCV 88.0 fl fl (80-100) MCH 24.9 pg L pg (26-34) MCHC 28.2 g/dl L g/dl (32-36) RDW 26.0 % H % (11.5-14.5) Plt Count 136 k/mm3 L k/mm3 (150-375) MPV 10.6 fl H fl (7.4-10.4) Immature Gran % (Auto) 0.2 % % (0-0.5) Neut % (Auto) 70.9 % % (45.5-73.1) Lymph % (Auto) 16.5 % L % (18.3-44.2) Blanco % (Auto) 7.3 % % (2.6-8.5) Eos % (Auto) 4.2 % % (0-4.4) Baso % (Auto) 0.9 % % (0.2-1.2) Lymph # (Auto) 0.95 K/mm3 K/mm3 (0.9-3.2) Blanco # (Auto) 0.4 K/mm3 K/mm3 (0.1-0.6) Eos # (Auto) 0.2 K/mm3 K/mm3 (0-0.3) Baso # (Auto) 0.1 K/mm3 K/mm3 (0.0-0.1) Abs Immat Gran (auto) 0.01 K/mm3 K/mm3 (0.00-0.031) Absolute Neuts (auto) 4.1 K/mm3 K/mm3 (1.3-6.7) Absolute Nucleated RBC 0.0 K/mm3 K/mm3 (0.0-0.012) Nucleated RBC % 0.0 % % (0.0-0.2) Platelet Estimate Decreased (Adequate) Hypochromasia 1+ (NORMAL) Anisocytosis 1+ (NORMAL) Microcytosis 1+ (NORMAL) Sodium 139 mmol/L mmol/L (137-145) Potassium 4.3 mmol/L mmol/L (3.4-5.0) Chloride 111 mmol/L H mmol/L (98-107) Carbon Dioxide 20 mmol/L L mmol/L (22-30) Anion Gap 8 mmol/L mmol/L (8-16) BUN 24 mg/dL H mg/dL (7-17) Creatinine 1.40 mg/dL H mg/dL (0.7-1.0) Estim Creat Clear Calc 23 ml/min ml/min Estimated GFR 36 L (59 - ) Glucose 91 mg/dL mg/dL (65-110) Calcium 8.7 mg/dL mg/dL (8.4-10.2) Magnesium 2.2 mg/dL mg/dL (1.6-2.3) Patient hx anesthesia problems: none Family hx anesthesia problems: none Results Review: All pre-operative results and documents have been reviewed as part of the pre-operative evaluation. REPLACED BY [facility] Past Medical History Medical History Cerebral aneurysm Status post coil embolization. Chronic kidney disease Current use of intermediate anticoagulation Degenerative
--- NOTE | 2021-08-13 11:00 | WPDHPUPDATE1 ---
History and Physical Update Update Date/Time: 08/13/21 11:00 History and Physical has been reviewed, including an updated exam of the patient. There are NO changes in the patient's condition. Risks, benefits, and alternatives have been discussed and questions answered. Patient agrees to proceed with procedure.
[2021-08-13] MEDS: LIDOCAINE HCL 2% GEL UROJET 10 ML PKG MUCOUS MEM (11:22)
--- NOTE | 2021-08-13 11:30 | PM.IMPN ---
Progress Note: A&P Assessment and Plan (1) Abnormal urinalysis: Code(s): R82.90 - Unspecified abnormal findings in urine Status: Acute Assessment and Plan: presents with a burning sensation/discomfort around her left nephrostomy tube, into the left flank, and abdomen UA showed cloudy 3+ protein, 3+ leukocyte esterase, 51-75 WBC, Trace bacteria IV ceftriaxone started Acetaminophen and tramadol available as needed for discomfort Urine culture pending Trend symptoms, and urine output Urology consulted for cystoscopy (2) Chronic kidney disease: Qualifiers: Chronic kidney disease stage: unspecified stage Qualified Code(s): N18.9 - Chronic kidney disease, unspecified Code(s): N18.9 - Chronic kidney disease, unspecified Status: Chronic Assessment and Plan: BUN/Cr is 24/1.40 Baseline 1.10-1.80 Cr. Clear. 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 Trend labs Avoid nephrotoxic medications Trend output Trend fluid status (3) Chronic anemia: Code(s): D64.9 - Anemia, unspecified Status: Acute Assessment and Plan: H/H is 8.5/30.1 Anemia labs from 08/03/21: iron 17, TIBC 398, % sat 4, B12 617, Folate 10.8 Continue ferrous sulfate 325mg PO BID Trend H/H Transfuse as indicated Appears that fluid has played a part in the past (4) Paroxysmal atrial fibrillation: Code(s): I48.0 - Paroxysmal atrial fibrillation Status: Acute Assessment and Plan: currently in a sinus rhythm Continue her metoprolol Apixaban on hold in anticipation of cystoscopy Restart anticoagulation when appropiate (5) Hypertension: Qualifiers: Hypertension type: essential hypertension Qualified Code(s): I10 - Essential (primary) hypertension Code(s): I10 - Essential (primary) hypertension Status: Acute Assessment and Plan: Current BP 143/77 Continue home losartan 25mg PO daily, metoprolol 50mg PO BID Trend BP Adjust therapy as indicated (6) Hypothyroidism: Code(s): E03.9 - Hypothyroidism, unspecified Status: Acute Assessment and Plan: TSH from 07/13/21 8.790, T4 1.06, T3 1.15 continue home levothyroxine 50mcg PO Qam Will probably need to be rechecked in about 2 weeks Time Spent With Patient Time with patient: Greater than 35 minutes Subjective Date/time seen: 08/13/21 1130 Interval history: Date/Time: 08/12/21 12:45 Narrative: This is an 85-year-old female with history kidney stones including staghorn calculi, chronic kidney disease, hypertension, diastolic congestive heart failure, paroxysmal atrial fibrillation, anemia, hypothyroidism, and other comorbidities who presented to the emergency department for evaluation of a burning sensation around her nephrostomy tube. She is known to myself and the hospitalist service from a recent admission last month at which time she presented to the ER with left-sided back pain and shortness of breath. Renal ultrasound and a subsequent Lasix renal scan demonstrated significant hydronephrosis and evidence of a high-grade obstruction. She was taken to the OR for cystoscopy and attempted placement of a left ureteral stent however she had proximal narrowing of the ureter and ultimately there was a small ureteral perforation and a nephrostomy tube was placed. Several days later she returned to the OR for another attempt at placing the stent which was again unsuccessful and she was discharged with a nephrostomy tube still in place. Her shortness of breath was attributed to acute on chronic anemia (hemoglobin 6.8) for which she received 1 unit of packed red blood cells. She was readmitted the following week with a CHF exacerbation, did well with diuresis, and she was discharged home on 08/06/2021. Upon waking this morning she had a burning discomfort along the nephrostomy tube radiating to the left flank and abdomen in addition to
--- NOTE | 2021-08-13 11:30 | P.PNIM_ITS ---
Progress Note: A&P Assessment and Plan (1) Abnormal urinalysis: Code(s): R82.90 - Unspecified abnormal findings in urine Status: Acute Assessment and Plan: * presents with a burning sensation/discomfort around her left nephrostomy tube, into the left flank, and abdomen * UA showed cloudy 3+ protein, 3+ leukocyte esterase, 51-75 WBC, Trace bacteria * IV ceftriaxone started * Acetaminophen and tramadol available as needed for discomfort * Urine culture pending * Trend symptoms, and urine output * Urology consulted for cystoscopy (2) Chronic kidney disease: Qualifiers: Chronic kidney disease stage: unspecified stage Qualified Code(s): N18.9 - Chronic kidney disease, unspecified Code(s): N18.9 - Chronic kidney disease, unspecified Status: Chronic Assessment and Plan: * BUN/Cr is 24/1.40 * Baseline 1.10-1.80 * Cr. Clear. and GFR reduced * Appears to be stage 3B * Trend labs * Avoid nephrotoxic medications * Trend output * Trend fluid status (3) Chronic anemia: Code(s): D64.9 - Anemia, unspecified Status: Acute Assessment and Plan: * H/H is 8.5/30.1 * Anemia labs from 08/03/21: iron 17, TIBC 398, % sat 4, B12 617, Folate 10.8 * Continue ferrous sulfate 325mg PO BID * Trend H/H * Transfuse as indicated * Appears that fluid has played a part in the past (4) Paroxysmal atrial fibrillation: Code(s): I48.0 - Paroxysmal atrial fibrillation Status: Acute Assessment and Plan: * currently in a sinus rhythm * Continue her metoprolol * Apixaban on hold in anticipation of cystoscopy * Restart anticoagulation when appropiate (5) Hypertension: Qualifiers: Hypertension type: essential hypertension Qualified Code(s): I10 - Essential (primary) hypertension Code(s): I10 - Essential (primary) hypertension Status: Acute Assessment and Plan: * Current BP 143/77 * Continue home losartan 25mg PO daily, metoprolol 50mg PO BID * Trend BP * Adjust therapy as indicated (6) Hypothyroidism: Code(s): E03.9 - Hypothyroidism, unspecified Status: Acute Assessment and Plan: * TSH from 07/13/21 8.790, T4 1.06, T3 1.15 * continue home levothyroxine 50mcg PO Qam * Will probably need to be rechecked in about 2 weeks Time Spent With Patient Time with patient: Greater than 35 minutes Subjective Date/time seen: 08/13/21 1130 Interval history: Date/Time: 08/12/21 12:45 Narrative: This is an 85-year-old female with history kidney stones including staghorn calculi, chronic kidney disease, hypertension, diastolic congestive heart failure, paroxysmal atrial fibrillation, anemia, hypothyroidism, and other comorbidities who presented to the emergency department for evaluation of a burning sensation around her nephrostomy tube. She is known to myself and the hospitalist service from a recent admission last month at which time she presented to the ER with left-sided back pain and shortness of breath. Renal ultrasound and a subsequent Lasix renal scan demonstrated significant hydronephrosis and evidence of a high-grade obstruction. She was taken to the OR for cystoscopy and attempted placement of a left ureteral stent however she had proximal narrowing of the ureter and ultimately there was a small ureteral perforation and a nephrostomy tube was placed. Several days later she returned to the OR for another attempt at placing the stent which was aga
--- NOTE | 2021-08-13 11:38 | W.PM.PROC2 ---
Procedure Note - Detailed Date of Procedure 08/13/21 Pre-op Diagnosis Left UPJ obstruction Post-op Diagnosis Same Procedure Performed Cystoscopy, left retrograde pyelography and left ureteral stent placement / removal left nephrostomy tube. Surgeon Nabil Shaikh MD Anesthesia General Description of Procedure patient is brought to the operative suite received prepped and draped in routine sterile fashion. Cystoscopy is undertaken with a 19 F rigid cystoscope. There was no intravesical foreign body neoplasm. Angiographic catheter was used to obtain a left retrograde pyelogram. There is no evidence of extravasation from the proximal ureter (were anywhere around). There were, again, is noted to be narrowing at the left UPJ. I advanced a 0.035 in glidewire to the left renal pelvis with ease. I placed a 4.8 F variable length ureteral stent with the proximal coil in renal pelvis and distal coil in the bladder. Appropriate positioning in the renal pelvis was confirmed by antegrade injection of indigo carmine stained saline through the nephrostomy tube. Promptly effluxed through the intravesical portion of her left ureteral stent. Under both cystoscopic and fluoroscopic visualization I removed the left nephrostomy tube. Patient tolerated the procedure well was taken recovery in good condition. Estimated Blood Loss 0 Drains Yes Packing Yes Pathology Yes Complications No immediate complications Condition Stable Disposition PACU
[2021-08-13] MEDS: PRAVASTATIN SODIUM 20 MG TABLET 80 MG PO (12:59)
[2021-08-13] MEDS: CHOLECALCIFEROL 1,000 UNITS TABLET 2000 UNITS PO (12:59)
[2021-08-13] MEDS: ASCORBIC ACID 500 MG TABLET PO (13:00)
[2021-08-13] MEDS: ACETAMINOPHEN 325 MG TABLET 650 MG PO (17:06)
[2021-08-13] MEDS: FERROUS SULFATE 324 MG TABLET PO (17:06)
[2021-08-13] MEDS: traMADol HCL (*CRX) 50 MG TABLET PO (20:18)
[2021-08-13] MEDS: buPROPion HCL SR (12 HR) 150 MG TAB PO (20:18)
[2021-08-13] MEDS: METOPROLOL TARTRATE 50 MG TAB PO (20:19)
[2021-08-14 06:18] LABS: Basophils Absolute Auto 0.1 K/mm3 (0.0-0.1); Basophils Percent Auto 1.3 % (0.2-1.2); Eosinophils Absolute Auto 0.3 K/mm3 (0-0.3); Eosinophils Percent Auto 6.2 % (0-4.4); Hematocrit 33.9 % (37.0-47.0); Hemoglobin 9.5 g/dL (12.0-15.0); Immature Granulocyte Absolute 0.02 K/mm3 (0.00-0.031); Immature Granulocyte Percent A 0.4 % (0-0.5); Lymphocytes Absolute Auto 1.07 K/mm3 (0.9-3.2); Lymphocytes Percent Auto 19.5 % (18.3-44.2); Mean Corpuscular Hemoglobin 24.9 pg (26-34); Mean Platelet Volume 10.6 fl (7.4-10.4); Monocytes Absolute Auto 0.5 K/mm3 (0.1-0.6); Monocytes Percent Auto 8.4 % (2.6-8.5); Neutrophils Absolute Auto 3.5 K/mm3 (1.3-6.7); Neutrophils Percent Auto 64.2 % (45.5-73.1); Platelet Count Result 152 k/mm3 (150-375); Red Blood Count 3.81 M/mm3 (4.2-5.4); Red Cell Distribution Width 26.4 % (11.5-14.5); White Blood Count 5.5 K/mm3 (4.5-10.0)
[2021-08-14 06:29] LABS: Alanine Aminotransferase 13 U/L (4-35); Albumin Level 3.6 g/dL (3.5-5.1); Alkaline Phosphatase 67 U/L (38-126); Anion Gap 7 mmol/L (8-16); Aspartate Amino Transferase 27 U/L (14-36); Bilirubin,Total 0.2 mg/dL (0.2-1.3); Blood Urea Nitrogen 20 mg/dL (7-17); Calcium 8.7 mg/dL (8.4-10.2); Carbon Dioxide 24 mmol/L (22-30); Chloride 110 mmol/L (98-107); Estimated CRCL calculation 26 ml/min; Estimated Glomerular Filt Rate 36; Glucose 88 mg/dL (65-110); Magnesium 2.2 mg/dL (1.6-2.3); Potassium 4.2 mmol/L (3.4-5.0); Sodium 141 mmol/L (137-145)
[2021-08-14] MEDS: LEVOTHYROXINE SODIUM 50 MCG TABLET PO (06:40)
--- NOTE | 2021-08-14 07:12 | WPDUROPN2 ---
Progress Note: A&P Assessment and Plan (1) Obstruction of left ureteropelvic junction (UPJ): Code(s): N13.5 - Crossing vessel and stricture of ureter without hydronephrosis Status: Acute Assessment and Plan: Comfortable, tolerating stent very well. Long talk with pt. about long-term management options for left UPJ obstruction: indwelling stent with periodic changes vs. robotic pyeloplasty. Will make that decision [id number]. Urine grew Enterococcus. Suggest home on Macrobid x10 days. F/U with me in 2-3 weeks. Home today OK with me. Subjective Subjective Date/Time Seen: 08/14/21 07:12 Comfortable, tolerating stent well Review of Systems Cardiovascular: Cardiovascular: Denies chest pain, Denies lightheadedness, Denies palpitations and Denies dyspnea Respiratory: Respiratory: Denies dyspnea Gastrointestinal: Gastrointestinal: Denies diarrhea, Denies nausea and Denies vomiting Genitourinary: Genitourinary: Denies hematuria and Denies dysuria Endocrine: Endocrine: Denies palpitations Exam Const: General: no acute distress Resp: Effort & Inspection: normal respiratory effort GI: Inspection: non-distended GI Palp: No abdominal tenderness and No Guarding due to palpation present (GI) Auscultation: normal bowel sounds Objective Data Vital Signs Vital Signs: Vital Signs - 24 hr 08/13/21 08:00 08/13/21 08:24 08/13/21 10:41 Temperature 98.7 F Pulse Rate 92 Respiratory Rate 20 Blood Pressure 136/75 Pulse Oximetry 96 95 100 08/13/21 11:45 08/13/21 12:00 08/13/21 12:15 Temperature 97.5 F L Pulse Rate 99 101 H 101 H Respiratory Rate 13 16 12 Blood Pressure 95/65 L 110/80 132/82 Pulse Oximetry 92 96 96 08/13/21 12:30 08/13/21 13:58 08/13/21 20:00 Temperature 96.7 F L Pulse Rate 92 101 H 95 Respiratory Rate 16 16 16 Blood Pressure 131/79 150/87 H Pulse Oximetry 97 95 99 08/13/21 20:19 08/13/21 22:00 08/13/21 22:26 Temperature 96.5 F L Pulse Rate 98 95 Respiratory Rate 16 Blood Pressure 134/82 Pulse Oximetry 99 99 Intake/Output Intake/Output: Intake & Output 03/08/22 03/09/22 03/10/22 03/11/22 23:59 23:59 23:59 23:59 Intake Total 286 2620 300 Balance 286 2620 300 Meds/Results Medications: Active Medications Generic Name Dose Route Start Last Admin Trade Name Freq PRN Reason Stop Dose Admin Acetaminophen 650 mg 08/12/21 18:12 08/13/21 17:06 Acetaminophen 325 Mg Tablet PO 650 mg Q6H PRN Administration Mild Pain (1-3) or Fever Ascorbic Acid 500 mg 08/13/21 09:00 08/13/21 13:00 Ascorbic Acid 500 Mg Tablet PO 500 mg DAILY RUY Administration Bupropion HCl 150 mg 08/12/21 21:00 08/13/21 20:18 Bupropion Hcl Sr (12 Hr) 150 Mg Tab PO 150 mg Q12HR RUY Administration Docusate Sodium 100 mg 08/12/21 18:10 Docusate Sodium 100 Mg Capsule PO BID PRN Constipation Fentanyl Citrate 25 mcg 08/13/21 11:06 Fentanyl Citrate Inj (*Crx) 100 Mcg/2 Ml Vial IV PUSH Q2M PRN Pain Ferrous Sulfate 324 mg 08/13/21 09:00 08/13/21 17:06 Ferrous Sulfate 324 Mg Tablet PO 324 mg BID RUY Administration Ceftriaxone Sodium/Dextrose 1 gm in 50 mls @ 100 mls/hr 08/13/21 09:00 08/13/21 08:55 Rocephin 1 Gm/D5w 50 Ml IVPB Infused DAILY RUY Infusion Lactated Ringer's 1,000 mls @ 30 mls/hr 08/13/21 11:10 08/13/21 12:36 Lr - Lactated Ringers Iv IV CONT Infused .Q24H RUY Infusion Lactated Ringer's 1,000 mls @ 30 mls/hr 08/13/21 11:10 08/13/21 11:40 Lr - Lactated Ringers Iv IV CONT 30 mls/hr .Q24H RUY Infusion Levothyroxine Sodium 50 mcg 08/13/21 06:30 08/14/21 06:40 Levothyroxine Sodium 50 Mcg Tablet PO 50 mcg DAILY@0630 RUY Administration Losartan Potassium 25 mg 08/13/21 09:00 08/13/21 11:27 Losartan Potassium 25 Mg Tablet PO Not Given DAILY RUY Metoprolol Tartrate 50 mg 08/12/21 21:00 08/13/21 20:19 Metoprolol Tartrat
[2021-08-14 08:00] VITALS: BP 150/78; PULSE 84
[2021-08-14 09:08] VITALS: PULSE 82
[2021-08-14] MEDS: ASCORBIC ACID 500 MG TABLET PO (09:08)
[2021-08-14] MEDS: METOPROLOL TARTRATE 50 MG TAB PO ×2 (09:08→20:44)
[2021-08-14] MEDS: PRAVASTATIN SODIUM 20 MG TABLET 80 MG PO (09:08)
[2021-08-14] MEDS: FERROUS SULFATE 324 MG TABLET PO ×2 (09:08→17:22)
[2021-08-14] MEDS: CHOLECALCIFEROL 1,000 UNITS TABLET 2000 UNITS PO (09:09)
[2021-08-14] MEDS: buPROPion HCL SR (12 HR) 150 MG TAB PO ×2 (09:09→20:44)
[2021-08-14] MEDS: LOSARTAN POTASSIUM 25 MG TABLET PO (09:09)
--- NOTE | 2021-08-14 09:15 | PM.IMPN ---
Progress Note: A&P Assessment and Plan (1) Abnormal urinalysis: Code(s): R82.90 - Unspecified abnormal findings in urine Status: Acute Assessment and Plan: presents with a burning sensation/discomfort around her left nephrostomy tube, into the left flank, and abdomen UA showed cloudy 3+ protein, 3+ leukocyte esterase, 51-75 WBC, Trace bacteria IV ceftriaxone started, changed to ampicillin due to enterococcus species Acetaminophen and tramadol available as needed for discomfort Urine culture grew enterococcus Trend symptoms, and urine output Urology consulted for cystoscopy (2) Chronic kidney disease: Qualifiers: Chronic kidney disease stage: unspecified stage Qualified Code(s): N18.9 - Chronic kidney disease, unspecified Code(s): N18.9 - Chronic kidney disease, unspecified Status: Chronic Assessment and Plan: BUN/Cr is 20/1.40 Baseline 1.10-1.80 Cr. Clear. 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 Trend labs Avoid nephrotoxic medications Trend output Trend fluid status (3) Chronic anemia: Code(s): D64.9 - Anemia, unspecified Status: Acute Assessment and Plan: H/H is 9.5/33.9 Anemia labs from 08/03/21: iron 17, TIBC 398, % sat 4, B12 617, Folate 10.8 Continue ferrous sulfate 325mg PO BID Trend H/H Transfuse as indicated Appears that fluid has played a part in the past (4) Paroxysmal atrial fibrillation: Code(s): I48.0 - Paroxysmal atrial fibrillation Status: Acute Assessment and Plan: currently in a sinus rhythm Continue her metoprolol Apixaban on hold in anticipation of cystoscopy Restart anticoagulation when appropiate (5) Hypertension: Qualifiers: Hypertension type: essential hypertension Qualified Code(s): I10 - Essential (primary) hypertension Code(s): I10 - Essential (primary) hypertension Status: Acute Assessment and Plan: Current BP 133/57 Continue home losartan 25mg PO daily, metoprolol 50mg PO BID Trend BP Adjust therapy as indicated (6) Hypothyroidism: Code(s): E03.9 - Hypothyroidism, unspecified Status: Acute Assessment and Plan: TSH from 07/13/21 8.790, T4 1.06, T3 1.15 continue home levothyroxine 50mcg PO Qam Will probably need to be rechecked in about 2 weeks Subjective Date/time seen: 08/14/21 0915 Interval history: Date/Time: 08/12/21 12:45 Narrative: This is an 85-year-old female with history kidney stones including staghorn calculi, chronic kidney disease, hypertension, diastolic congestive heart failure, paroxysmal atrial fibrillation, anemia, hypothyroidism, and other comorbidities who presented to the emergency department for evaluation of a burning sensation around her nephrostomy tube. She is known to myself and the hospitalist service from a recent admission last month at which time she presented to the ER with left-sided back pain and shortness of breath. Renal ultrasound and a subsequent Lasix renal scan demonstrated significant hydronephrosis and evidence of a high-grade obstruction. She was taken to the OR for cystoscopy and attempted placement of a left ureteral stent however she had proximal narrowing of the ureter and ultimately there was a small ureteral perforation and a nephrostomy tube was placed. Several days later she returned to the OR for another attempt at placing the stent which was again unsuccessful and she was discharged with a nephrostomy tube still in place. Her shortness of breath was attributed to acute on chronic anemia (hemoglobin 6.8) for which she received 1 unit of packed red blood cells. She was readmitted the following week with a CHF exacerbation, did well with diuresis, and she was discharged home on 08/06/2021. Upon waking this morning she had a burning discomfort along the nephrostomy tube radiating to the left flank and abdomen in addition to chills an
--- NOTE | 2021-08-14 09:15 | P.PNIM_ITS ---
Progress Note: A&P Assessment and Plan (1) Abnormal urinalysis: Code(s): R82.90 - Unspecified abnormal findings in urine Status: Acute Assessment and Plan: * presents with a burning sensation/discomfort around her left nephrostomy tube, into the left flank, and abdomen * UA showed cloudy 3+ protein, 3+ leukocyte esterase, 51-75 WBC, Trace bacteria * IV ceftriaxone started, changed to ampicillin due to enterococcus species * Acetaminophen and tramadol available as needed for discomfort * Urine culture grew enterococcus * Trend symptoms, and urine output * Urology consulted for cystoscopy (2) Chronic kidney disease: Qualifiers: Chronic kidney disease stage: unspecified stage Qualified Code(s): N18.9 - Chronic kidney disease, unspecified Code(s): N18.9 - Chronic kidney disease, unspecified Status: Chronic Assessment and Plan: * BUN/Cr is 20/1.40 * Baseline 1.10-1.80 * Cr. Clear. and GFR reduced * Appears to be stage 3B * Trend labs * Avoid nephrotoxic medications * Trend output * Trend fluid status (3) Chronic anemia: Code(s): D64.9 - Anemia, unspecified Status: Acute Assessment and Plan: * H/H is 9.5/33.9 * Anemia labs from 08/03/21: iron 17, TIBC 398, % sat 4, B12 617, Folate 10.8 * Continue ferrous sulfate 325mg PO BID * Trend H/H * Transfuse as indicated * Appears that fluid has played a part in the past (4) Paroxysmal atrial fibrillation: Code(s): I48.0 - Paroxysmal atrial fibrillation Status: Acute Assessment and Plan: * currently in a sinus rhythm * Continue her metoprolol * Apixaban on hold in anticipation of cystoscopy * Restart anticoagulation when appropiate (5) Hypertension: Qualifiers: Hypertension type: essential hypertension Qualified Code(s): I10 - Essential (primary) hypertension Code(s): I10 - Essential (primary) hypertension Status: Acute Assessment and Plan: * Current BP 133/57 * Continue home losartan 25mg PO daily, metoprolol 50mg PO BID * Trend BP * Adjust therapy as indicated (6) Hypothyroidism: Code(s): E03.9 - Hypothyroidism, unspecified Status: Acute Assessment and Plan: * TSH from 07/13/21 8.790, T4 1.06, T3 1.15 * continue home levothyroxine 50mcg PO Qam * Will probably need to be rechecked in about 2 weeks Subjective Date/time seen: 08/14/21 0915 Interval history: Date/Time: 08/12/21 12:45 Narrative: This is an 85-year-old female with history kidney stones including staghorn calculi, chronic kidney disease, hypertension, diastolic congestive heart failure, paroxysmal atrial fibrillation, anemia, hypothyroidism, and other comorbidities who presented to the emergency department for evaluation of a burning sensation around her nephrostomy tube. She is known to myself and the hospitalist service from a recent admission last month at which time she presented to the ER with left-sided back pain and shortness of breath. Renal ultrasound and a subsequent Lasix renal scan demonstrated significant hydronephrosis and evidence of a high-grade obstruction. She was taken to the OR for cystoscopy and attempted placement of a left ureteral stent however she had proximal narrowing of the ureter and ultimately there was a small ureteral perforation and a nephrostomy tube was placed. Several days later she returned to the OR for another attempt at placing the stent which was again unsuccessful
--- NOTE | 2021-08-14 09:30 | WPDANESPN ---
Anes - Prog Note Post-Op Date/Time: 08/14/21 09:30 Cardiovascular status: normal Respiratory status: normal Airway patency: baseline Mental status: baseline Post-Op hydration status: normal Vital Signs: Last Vital Signs Temp 35.8 C L 08/13/21 22:00 Pulse 82 08/14/21 09:08 Resp 16 08/13/21 22:00 BP 134/82 08/13/21 22:00 Pulse Ox 99 08/13/21 22:26 Pain Score (VAS): 0 I/O: Intake & Output 08/13/21 08/14/21 08/14/21 23:59 07:59 15:59 Intake Total 990 300 240 Balance 990 300 240 Laboratory Tests 08/14/21 05:36 08/14/21 05:36 08/14/21 08/14/21 05:36 05:36 WBC 5.5 RBC 3.81 L Hgb 9.5 L Hct 33.9 L MCV 89.0 MCH 24.9 L MCHC 28.0 L RDW 26.4 H Plt Count 152 MPV 10.6 H Immature Gran % (Auto) 0.4 Neut % (Auto) 64.2 Lymph % (Auto) 19.5 [place] % (Auto) 8.4 Eos % (Auto) 6.2 H Baso % (Auto) 1.3 H Lymph # (Auto) 1.07 [place] # (Auto) 0.5 Eos # (Auto) 0.3 Baso # (Auto) 0.1 Abs Immat Gran (auto) 0.02 Absolute Neuts (auto) 3.5 Absolute Nucleated RBC 0.0 Nucleated RBC % 0.0 Sodium 141 Potassium 4.2 Chloride 110 H Carbon Dioxide 24 Anion Gap 7 L BUN 20 H Creatinine 1.40 H Estim Creat Clear Calc 26 Estimated GFR 36 L Glucose 88 Calcium 8.7 Magnesium 2.2 Total Bilirubin 0.2 AST 27 ALT 13 Alkaline Phosphatase 67 Total Protein 6.0 L Albumin 3.6 Microbiology 08/12/21 07:57 Urine Suprapubic Urine Culture - Preliminary Enterococcus species Post-procedural complaints: none Patient Feedback: Patient satisfied with anesthetic care.
[2021-08-14 13:57] VITALS: BP 133/57; PULSE 108; RESP 16; TEMP 35; O2SAT 99
[2021-08-14] MEDS: AMPICILLIN TRIHYDRATE 500 MG CAPSULE PO (17:22)
[2021-08-14] MEDS: ACETAMINOPHEN 325 MG TABLET 650 MG PO (18:30)
[2021-08-14 20:44] VITALS: PULSE 84
[2021-08-14] MEDS: traMADol HCL (*CRX) 50 MG TABLET PO (22:16)
[2021-08-15] MEDS: AMPICILLIN TRIHYDRATE 500 MG CAPSULE PO ×2 (00:09→06:30)
[2021-08-15 06:25] LABS: Basophils Percent Auto 0.8 % (0.2-1.2); Eosinophils Absolute Auto 0.2 K/mm3 (0-0.3); Eosinophils Percent Auto 3.8 % (0-4.4); Hematocrit 29.2 % (37.0-47.0); Hemoglobin 8.8 g/dL (12.0-15.0); Immature Granulocyte Absolute 0.02 K/mm3 (0.00-0.031); Immature Granulocyte Percent A 0.4 % (0-0.5); Lymphocytes Absolute Auto 1.13 K/mm3 (0.9-3.2); Lymphocytes Percent Auto 23.9 % (18.3-44.2); Mean Corpuscular HGB Conc 30.1 g/dl (32-36); Mean Corpuscular Hemoglobin 25.8 pg (26-34); Mean Corpuscular Volume 85.6 fl (80-100); Monocytes Absolute Auto 0.5 K/mm3 (0.1-0.6); Monocytes Percent Auto 9.7 % (2.6-8.5); Neutrophils Absolute Auto 2.9 K/mm3 (1.3-6.7); Neutrophils Percent Auto 61.4 % (45.5-73.1); Platelet Count Result 130 k/mm3 (150-375); Red Blood Count 3.41 M/mm3 (4.2-5.4); White Blood Count 4.7 K/mm3 (4.5-10.0)
[2021-08-15] MEDS: LEVOTHYROXINE SODIUM 50 MCG TABLET PO (06:30)
[2021-08-15 06:32] LABS: Alanine Aminotransferase 11 U/L (4-35); Albumin Level 3.3 g/dL (3.5-5.1); Alkaline Phosphatase 62 U/L (38-126); Anion Gap 5 mmol/L (8-16); Aspartate Amino Transferase 24 U/L (14-36); Bilirubin,Total 0.3 mg/dL (0.2-1.3); Blood Urea Nitrogen 19 mg/dL (7-17); Calcium 8.6 mg/dL (8.4-10.2); Carbon Dioxide 23 mmol/L (22-30); Chloride 111 mmol/L (98-107); Estimated CRCL calculation 30 ml/min; Estimated Glomerular Filt Rate 43; Glucose 88 mg/dL (65-110); Magnesium 2.2 mg/dL (1.6-2.3); Potassium 3.9 mmol/L (3.4-5.0); Sodium 139 mmol/L (137-145)
[2021-08-15 08:00] VITALS: PULSE 84; RESP 16; O2SAT 99
[2021-08-15] MEDS: METOPROLOL TARTRATE 50 MG TAB PO (08:14)
[2021-08-15] MEDS: FERROUS SULFATE 324 MG TABLET PO (08:15)
[2021-08-15] MEDS: buPROPion HCL SR (12 HR) 150 MG TAB PO (08:15)
[2021-08-15] MEDS: PRAVASTATIN SODIUM 20 MG TABLET 80 MG PO (08:15)
[2021-08-15] MEDS: ASCORBIC ACID 500 MG TABLET PO (08:15)
[2021-08-15] MEDS: LOSARTAN POTASSIUM 25 MG TABLET PO (08:16)
[2021-08-15] MEDS: CHOLECALCIFEROL 1,000 UNITS TABLET 2000 UNITS PO (08:16)
--- NOTE | 2021-08-15 08:45 | PM.DS ---
DS: Admitting Diagnosis Discharge Date 08/15/21 0845 Admitting Diagnosis UTI/Urinary obstruction DS: Discharge Diagnosis Discharge Diagnosis (1) Abnormal urinalysis: Code(s): R82.90 - Unspecified abnormal findings in urine Status: Acute Assessment and Plan: presents with a burning sensation/discomfort around her left nephrostomy tube, into the left flank, and abdomen UA showed cloudy 3+ protein, 3+ leukocyte esterase, 51-75 WBC, Trace bacteria Antibiotics changed to ampicillin Acetaminophen and tramadol available as needed for discomfort Urine culture Enterococcus Trend symptoms, and urine output Urology consulted for cystoscopy (2) Chronic kidney disease: Qualifiers: Chronic kidney disease stage: unspecified stage Qualified Code(s): N18.9 - Chronic kidney disease, unspecified Code(s): N18.9 - Chronic kidney disease, unspecified Status: Chronic Assessment and Plan: BUN/Cr is 19/1.20 Baseline 1.10-1.80 Cr. Clear. 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 Trend labs Avoid nephrotoxic medications Trend output Trend fluid status (3) Chronic anemia: Code(s): D64.9 - Anemia, unspecified Status: Acute Assessment and Plan: H/H is 8.8/29.2 Anemia labs from 08/03/21: iron 17, TIBC 398, % sat 4, B12 617, Folate 10.8 Continue ferrous sulfate 325mg PO BID Trend H/H Transfuse as indicated Appears that fluid has played a part in the past (4) Paroxysmal atrial fibrillation: Code(s): I48.0 - Paroxysmal atrial fibrillation Status: Acute Assessment and Plan: currently in a sinus rhythm Continue her metoprolol Apixaban on hold in anticipation of cystoscopy Restart anticoagulation when appropiate (5) Hypertension: Qualifiers: Hypertension type: essential hypertension Qualified Code(s): I10 - Essential (primary) hypertension Code(s): I10 - Essential (primary) hypertension Status: Acute Assessment and Plan: Current BP 133/57 Continue home losartan 25mg PO daily, metoprolol 50mg PO BID Trend BP Adjust therapy as indicated (6) Hypothyroidism: Code(s): E03.9 - Hypothyroidism, unspecified Status: Acute Assessment and Plan: TSH from 07/13/21 8.790, T4 1.06, T3 1.15 continue home levothyroxine 50mcg PO Qam Will probably need to be rechecked in about 2 weeks DS: Summary Hospital Course Hospital Course: Patient is an 85-year-old female with a past medical history of cerebral aneurysm, chronic kidney disease, dyslipidemia, hyperlipidemia, hypertension, hypothyroidism who presented to the ED for evaluation burning sensation around her nephrostomy tube. Urology was consulted the patient to the OR and a stent was placed in the ureterostomy tube was removed. Patient was started on IV ceftriaxone due to UA looking to be infectious. Urine culture did come back with Enterococcus. While awaiting sensitivities patient was placed on ampicillin. Unit creatinine have remained stable throughout her visit and at her baseline. She was also noticed to be anemic and anemia labs were drawn on 08/03/2021 with iron 17, TIBC of 398 with a% saturation of 4. Patient was continued on her home dose of ferrous sulfate. TSH was not to also be elevated and levothyroxine was increased last visit. Patient will probably need another TSH drawn about 2 weeks. Patient denies any pain, chest pain, shortness of breath, nausea, vomiting, diarrhea, constipation, weakness, fatigue. Patient is ready to be discharged and is stable with her labs and vitals this time. Case reviewed with Dr. Lee who recommends Changing the ampicillin to amoxicillin/clavulanate 875mg PO Q12h x 9 days Status at Discharge Functional status at discharge: independent ambulation Overall status at discharge: patient is progressing back to baseline Time Spent with Patient Time attestation
--- NOTE | 2021-08-15 08:45 | P.DS_ITS ---
DS: Admitting Diagnosis Discharge Date 08/15/21 0845 Admitting Diagnosis UTI/Urinary obstruction DS: Discharge Diagnosis Discharge Diagnosis (1) Abnormal urinalysis: Code(s): R82.90 - Unspecified abnormal findings in urine Status: Acute Assessment and Plan: * presents with a burning sensation/discomfort around her left nephrostomy tube, into the left flank, and abdomen * UA showed cloudy 3+ protein, 3+ leukocyte esterase, 51-75 WBC, Trace bacteria * Antibiotics changed to ampicillin * Acetaminophen and tramadol available as needed for discomfort * Urine culture Enterococcus * Trend symptoms, and urine output * Urology consulted for cystoscopy (2) Chronic kidney disease: Qualifiers: Chronic kidney disease stage: unspecified stage Qualified Code(s): N18 .9 - Chronic kidney disease, unspecified Code(s): N18.9 - Chronic kidney disease, unspecified Status: Chronic Assessment and Plan: * BUN/Cr is 19/1.20 * Baseline 1.10-1.80 * Cr. Clear. and GFR reduced * Appears to be stage 3B * Trend labs * Avoid nephrotoxic medications * Trend output * Trend fluid status (3) Chronic anemia: Code(s): D64.9 - Anemia, unspecified Status: Acute Assessment and Plan: * H/H is 8.8/29.2 * Anemia labs from 08/03/21: iron 17, TIBC 398, % sat 4, B12 617, Folate 10.8 * Continue ferrous sulfate 325mg PO BID * Trend H/H * Transfuse as indicated * Appears that fluid has played a part in the past (4) Paroxysmal atrial fibrillation: Code(s): I48.0 - Paroxysmal atrial fibrillation Status: Acute Assessment and Plan: * currently in a sinus rhythm * Continue her metoprolol * Apixaban on hold in anticipation of cystoscopy * Restart anticoagulation when appropiate (5) Hypertension: Qualifiers: Hypertension type: essential hypertension Qualified Code(s): I10 - Essential (primary) hypertension Code(s): I10 - Essential (primary) hypertension Status: Acute Assessment and Plan: * Current BP 133/57 * Continue home losartan 25mg PO daily, metoprolol 50mg PO BID * Trend BP * Adjust therapy as indicated (6) Hypothyroidism: Code(s): E03.9 - Hypothyroidism, unspecified Status: Acute Assessment and Plan: * TSH from 07/13/21 8.790, T4 1.06, T3 1.15 * continue home levothyroxine 50mcg PO Qam * Will probably need to be rechecked in about 2 weeks DS: Summary Hospital Course Hospital Course: Patient is an 85-year-old female with a past medical history of cerebral aneurysm, chronic kidney disease, dyslipidemia, hyperlipidemia, hypertension, hypothyroidism who presented to the ED for evaluation burning sensation around her nephrostomy tube. Urology was consulted the patient to the OR and a stent was placed in the ureterostomy tube was removed. Patient was started on IV ceftriaxone due to UA looking to be infectious. Urine culture did come back with Enterococcus. While awaiting sensitivities patient was placed on ampicillin. Unit creatinine have remained stable throughout her visit and at her baseline. She was also noticed to be anemic and anemia labs were drawn on 08/03/2021 with iron 17, TIBC of 398 with a% saturation of 4. Patient was continued on her home dose of ferrous sulfate. TSH was not to also be elevated and levothyroxine was increased last visit. Patient will probably need another TSH drawn about 2 weeks. Patient denies any pain, ch
== END 2021-08-15 10:15 | disposition home health service (06) ==
LOC: ANHED 10:21 → ANH3MEDSUR 12:31
PROVIDERS: Urology; Admitting Provider Hospitalist; Emergency Provider Emergency Medicine; PCP Internal Medicine; Visit Provider Nurse Practitioner
PROC: (CPT 52352; principal; 2021-08-13 12:00)
DX: N39.0 Urinary tract infection, site not specified (principal); N13.5 Crossing vessel and stricture of ureter without hydronephrosis; B95.2 Enterococcus as the cause of diseases classified elsewhere; N20.0 Calculus of kidney; I13.0 Hypertensive heart and chronic kidney disease with heart failure and stage 1 through stage 4 chronic kidney disease, or unspecified chronic kidney disease; N18.9 Chronic kidney disease, unspecified; I50.30 Unspecified diastolic (congestive) heart failure; I48.0 Paroxysmal atrial fibrillation; D64.9 Anemia, unspecified; E78.5 Hyperlipidemia, unspecified; E03.9 Hypothyroidism, unspecified; F32.A Depression, unspecified; B39.9 Histoplasmosis, unspecified; Z87.442 Personal history of urinary calculi; Z93.6 Other artificial openings of urinary tract status; Z86.711 Personal history of pulmonary embolism; Z79.01 Long term (current) use of anticoagulants
CPT/HCPCS: 52332; 50389; 36415; 74420; 80048; 80053; 81001; 83735; 85025; 85055; 87086; 87147; 87181; 87186; 96365; 96366; 96375; 99285; A9270; C1769; C1887; C2617; G0378; J0696; J2270; J3370; J7120; Q9966; Q9968

== ENCOUNTER 2021-12-29 11:17 | Outpatient (CLI) | payer MEDICARE, SELFPAY ==
[2021-12-29 12:01] LABS: Hematocrit 43.1 % (37.0-47.0); Hemoglobin 13.5 g/dL (12.0-15.0)
[2021-12-29 12:10] LABS: Anion Gap 8 mmol/L (8-16); Blood Urea Nitrogen 36 mg/dL (7-17); Calcium 9.3 mg/dL (8.4-10.2); Carbon Dioxide 28 mmol/L (22-30); Chloride 106 mmol/L (98-107); Estimated Glomerular Filt Rate 31; Glucose 75 mg/dL (65-110); Potassium 4.6 mmol/L (3.4-5.0); Sodium 142 mmol/L (137-145)
== END 2021-12-29 11:18 | disposition home or self-care (01) ==
LOC: ANHSURGERY 11:20
PROVIDERS: Anesthesiology; PCP Internal Medicine; Visit Provider Urology
DX: I10 Essential (primary) hypertension (principal); D64.9 Anemia, unspecified
CPT/HCPCS: 36415; 80048; 85014; 85018

== ENCOUNTER 2021-12-31 02:53 | Day surgery (SDC) | payer MEDICARE, SELFPAY ==
[2021-12-28 13:10] VITALS: BMI 24.0
--- NOTE | 2021-12-28 13:23 | PC.NURSE ---
Report to the Outpatient Waiting Room, entrance under the green pavilion located off [facility], at time _1000 on date _12/31/21 . OR Time: _1200 . - You and your visitor will be asked a series of questions to screen for COVID 19 for your protection. - Only one visitor is allowed at this time. - The patient visitor is requested to leave or wait in car when not with patient. - A mask is required within the hospital. Patients may have clear liquids (water, carbonated beverages, clear teas, apple juice) until 3 hours prior to surgery with a maximum of 20 ounces. - No food from midnight until time of surgery - Infants may have breast milk until 4 hours before surgery, infant formula 6 hours prior to surgery. - Children will be allowed to drink immediately following surgery. If applicable, please bring a bottle or sippy cup to assist with drinking. Juice, water, soda, and popsicles are readily available. For infants on formula, please bring formula the day of surgery. Pacifiers are allowed. Take the following medications with a SIP of water the morning of surgery: ____BUPROPION,LEVOTHYROXINE.METOPROLOL Medications to discontinue per physician ___RICKIE PT STATES 3 DAYS PRE OP PER DR SCHRADER__. VITAMIN D STOP TODAY__12/28/21 Date to take last dose_RICKIE 12/27/21 Please no make-up, nail romanian, hairspray, perfume, deodorant, or body powder the day of surgery. No jewelry (including any body piercings) or valuables the day of surgery, leave them at home. Please take a shower or bath the night before, or the morning of, surgery with an antibacterial soap. Wear comfortable, loose fitting clothing. Children are encouraged to wear pajamas. - Jewelry must be removed prior to entering the operating room. Rings and piercings that are not removed may be cut off. - The hospital will not accept responsibility for valuables. - Please leave all valuables, including medications, at home the day of surgery. If you are going home after surgery, a licensed local company hazmat driver must drive you home. - NO public transportation without another adult. - We recommend that an adult stay with you for 24 hours following discharge. - We also recommend that you do not drive, make important decision, drink alcoholic beverages, or take any drugs that were not prescribed by your health care provider for at least 24 hours after your discharge time. For Pediatric surgeries, we recommend two adults accompany the child home (only one inside the building at this time). Follow any additional instructions given to you from your surgeon. If you or anyone in your household have experienced Covid symptoms in the past week, please notify your surgeon or the nurse liaison at the phone number below for possible testing. Telephone instructions given to _PATIENT and asked if any additional questions and then verbalized understanding. Patient advised to call surgeon office or pre surgery nurse liaison [phone] if any additional questions.
--- NOTE | 2021-12-30 11:11 | PM.HPGS ---
History of Present Illness History of Present Illness Consent: Risks, benefits, and alternatives have been discussed and questions answered. Patient agrees to proceed with procedure. 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 She presents today for cystoscopy with ureteral stent exchange. She is aware the risk including, not limited to, hematuria an adverse cardiopulmonary event Review of Systems Cardiovascular: Cardiovascular: Denies chest pain, Denies lightheadedness, Denies palpitations and Denies dyspnea Respiratory: Respiratory: Denies dyspnea Gastrointestinal: Gastrointestinal: Denies diarrhea, Denies nausea and Denies vomiting Genitourinary: Genitourinary: Denies hematuria and Denies dysuria Endocrine: Endocrine: Denies palpitations [facility] Past Medical History Medical History Cerebral aneurysm Status post coil embolization. Chronic kidney disease Current use of jail anticoagulation Degenerative disc disease Depression Diastolic congestive heart failure Dyslipidemia Endometriosis Hemorrhoids Histoplasmosis Hyperlipidemia Hypertension Hypothyroidism Intraoperative ureteral injury (07/2021) Kidney stones Including known right staghorn calculus. Nonspecific colitis Paroxysmal atrial fibrillation Pulmonary embolism Surgical History Surgical History History of arthroplasty of right knee History of cataract extraction History of colonoscopy with polypectomy History of cystoscopy History of lumbar surgery History of tonsillectomy and adenoidectomy History of total hysterectomy with bilateral salpingo-oophorectomy (BSO) Status post coil embolization of cerebral aneurysm Family History Family History Mother , in her 70s Hypertension Father Hypertension Acute myocardial infarction Social History Social History Social History: Surrogate decision maker: Seth Peterson, grandson. Code status: Full code. Smoking packs per day: 0.5 Smoking cigarettes per day: 10.0 Years smoked: 10 Smoking pack-years: 5.00 Smoking status: Former smoker Tobacco type: cigarettes Second hand tobacco smoke exposure: No Smoking end date: 06/06/79 Alcohol intake: current Drinks per week: 1 Alcohol use details: 6 oz of wine. Substance use: never Substance use type: does not use Additional living arrangements comments: as of September 2020. She and her had 3 children, all whom are . Additional occupation/education comments: Retired. Gender identity (if verbalized by the patient): Female Sexual Orientation (if Verbalized by the Patient): Straight or Heterosexual Spiritual care concerns: No Meds Home Medications and Allergies Home Medications Medication Instructions Recorded Confirmed Type bupropion HCl 150 mg tablet,12 hr 150 mg PO BID 11/19/19 12/28/21 History sustained-release cholecalciferol (vitamin D3) 50 50 mcg PO DAILY 11/19/19 12/28/21 History mcg (2,000 unit) capsule (Vitamin D3) levothyroxine 50 mcg tablet 50 mcg PO QAM 11/19/19 12/28/21 History pravastatin 80 mg tablet 80 mg PO DAILY 11/19/19 12/28/21 History apixaban 2.5 mg tablet (Eliquis) 2.5 mg PO Q12HR #60 tabs 07/24/21 12/28/21 Rx tramadol 50 mg tablet 50 mg PO Q6H PRN Pain 08/01/21 12/28/21 History ferrous sulfate 325 mg (65 mg 325 mg PO BID #60 tabs 08/06/21 12/28/21 Rx iron) tablet losartan 50 mg tablet (Cozaar) 25 mg PO DAILY #30 tabs 08/06/21 12/28/21 Rx docusate sodium 100 mg tablet 100 mg PO DAILY PRN Constipation 08/12/21 12/28/21 History furosemide 20 mg tablet 20 mg PO PRN PRN e
--- NOTE | 2021-12-30 15:39 | WPDANESEPPF ---
Anes - Initial Pre Proc Eval Procedure: Operation Date: 12/31/21 11:30 Proposed Procedures p Cystoscopy, Left Ureteral Stent Exchange - Nabil Shaikh MD Date/Time: 12/30/21 15:39 Surgeon: Nabil Shaikh MD Pre Op Diagnosis: left upj obstruction Patient Data Age: 86 Gender: F Height: 1.63 m Weight: 63.6 kg Allergies Allergy/AdvReac Type Severity Reaction Status Date / Time hydrocodone AdvReac Intermediate Nausea Verified 12/28/21 13:05 codeine AdvReac Mild Nausea Verified 12/28/21 13:05 heparin AdvReac Mild Nausea Verified 12/28/21 13:05 Home Medications Medication Instructions Recorded Confirmed Type bupropion HCl 150 mg tablet,12 hr 150 mg PO BID 11/19/19 12/31/21 History sustained-release cholecalciferol (vitamin D3) 50 50 mcg PO DAILY 11/19/19 12/31/21 History mcg (2,000 unit) capsule (Vitamin D3) levothyroxine 50 mcg tablet 50 mcg PO QAM 11/19/19 12/31/21 History pravastatin 80 mg tablet 80 mg PO DAILY 11/19/19 12/31/21 History apixaban 2.5 mg tablet (Eliquis) 2.5 mg PO Q12HR #60 tabs 07/24/21 12/31/21 Rx tramadol 50 mg tablet 50 mg PO Q6H PRN Pain 08/01/21 12/31/21 History ferrous sulfate 325 mg (65 mg 325 mg PO BID #60 tabs 08/06/21 12/31/21 Rx iron) tablet losartan 50 mg tablet (Cozaar) 25 mg PO DAILY #30 tabs 08/06/21 12/31/21 Rx docusate sodium 100 mg tablet 100 mg PO DAILY PRN Constipation 08/12/21 12/31/21 History furosemide 20 mg tablet 20 mg PO PRN PRN edema 12/28/21 12/31/21 History metoprolol tartrate 50 mg tablet 75 mg PO BID 12/28/21 12/31/21 History Other studies: Admit Date: ? ? 07/15/2021 Staff Ordering Physician: ? ? Karen Blas PA-C Bar Welder: ? ? Kashmir Galvin RDCS, RT Attending Provider: ? ? Karen Blas PA-C Referring Physician: ? ? Wan SHELLEY; Exam Type: ? ? CA echo doppler color flow Study Info Indications ? ? I48.1 - Persistent atrial fibrillation Complete two-dimensional, color flow and Doppler transthoracic echocardiogram is performed. ? Strain analysis performed. Account #: ? ? [id number] Summary ? 1. Complete two-dimensional, color flow and Doppler transthoracic echocardiogram is performed. ? 2. Left ventricular chamber dimension is normal. ? 3. Left ventricular systolic function is normal, estimated at 60-65%. ? 4. There is moderately increased left ventricular wall thickness. ? 5. The left ventricular diastolic function is abnormal. ? 6. Global longitudinal strain is abnormal at -9 %. ? 7. Left atrial chamber dimension is moderately enlarged. ? 8. Right atrial chamber dimension is mildly enlarged. ? 9. There is mild aortic valve stenosis with a peak velocity of 219 cm/s, mean gradient of 5 mmHg, and aortic valve area of 1.6 cm2. ? 10. There is mild aortic valve regurgitation. ? 11. There is moderate aortic valve calcification. ? 12. There is moderate to severe mitral valve regurgitation. ? 13. There is mild to moderate tricuspid valve regurgitation. ? 14. Mild pulmonary hypertension, estimated pulmonary arterial systolic pressure is 41 mmHg. ? 15. There is small pericardial effusion. ? 16. No echocardiographic evidence of tamponade physiology. ? 17. Strain analysis performed. Patient hx anesthesia problems: none Family hx anesthesia problems: none Results Review: All pre-operative results and documents have been reviewed as part of the pre-operative evaluation. [facility] Past Medical History Medical History (Updated 12/31/21 @ 10:09 by Rakan Small MD) Abnormal urinalysis Acute renal failure Aortic stenosis Atrial fibrillation with rapid ventricular response Atrial fibrillation with RVR Cerebral aneurysm Status post coil embolization. CHF (congestive heart failure) (~08/01/21) Chronic anemia Chronic kidney disease Current use of prison anticoagulation Degenerative disc disease Depression Diastolic congestive heart failure Dyslipidemia Endometriosis Hemorrhoids Histoplasmosis Hyperlipide
--- NOTE | ~2021-12-31 | XR_ITS ---
EXAMINATION: XR retrograde pyelo w/stent LT DATE: 12/31/2021 12:08 INDICATION: Left internal ureteral stent placement TECHNIQUE: Fluoroscopic images from a left internal ureteral stent placement are submitted for review . 102 seconds of fluoroscopy time. 111 images FINDINGS: There is a left double-J internal ureteral stent projecting in expected position, with proximal [place] loop at the level of the renal pelvis and distal loop in the pelvis within the bladder lumen. IMPRESSION: 1. Left internal ureteral stent placement. Please refer to real-time procedural findings for detail s. Reviewed, dictated and finalized at location A. IMPRESSION: 1. Left internal ureteral stent placement. Please refer to real-time procedur al findings for details.
--- NOTE | 2021-12-31 06:25 | WPDHPUPDATE1 ---
History and Physical Update Update Date/Time: 12/31/21 06:25 History and Physical has been reviewed, including an updated exam of the patient. There are NO changes in the patient's condition. Risks, benefits, and alternatives have been discussed and questions answered. Patient agrees to proceed with procedure.
[2021-12-31] MEDS: LACTATED RINGERS 1,000 ML 30 ML IV CONT (10:20)
[2021-12-31 10:23] VITALS: BP 127/73; PULSE 82; RESP 16; TEMP 36.6; O2SAT 100
[2021-12-31] MEDS: ceFAZolin 2 GM/D5W 50 ML 2 GM/50 ML BAG IVPB (11:14)
[2021-12-31] MEDS: LIDOCAINE HCL 2% GEL UROJET 10 ML PKG MUCOUS MEM (11:29)
[2021-12-31 11:52] VITALS: BP 118/62; PULSE 46; RESP 16; O2SAT 100
--- NOTE | 2021-12-31 11:52 | W.PM.PROC2 ---
Procedure Note - Detailed Date of Procedure 12/31/21 Pre-op Diagnosis Left upj obstruction Post-op Diagnosis Same Procedure Performed Cystoscopy, left ureteral stent removal, left retrograde pyelogram, left ureteroscopy in the ureteral stent replacement Surgeon Nabil Shaikh MD Anesthesia MAC Description of Procedure Patient is brought to the operative suite where she was prepped and draped in routine sterile fashion while in a dorsal lithotomy position. 2% xylocaine jelly was introduced intraurethrally and systemic sedation is administered per the anesthesia department. Cystoscopy is undertaken with a 19 F rigid cystoscope. The tip of the indwelling stent is grasped and the stent is removed with ease. A 0.035 in glidewire was advanced into the ureter and exchanged for a angiographic catheter. Retrograde pyelography is used to outline the collecting system. She continues to have a very narrowed area at the left ureteropelvic junction, as before. I tried to advance a guidewire into the renal pelvis but met resistance at that site, answer decision to do flexible ureteroscopy with a 7.5 F flexible scope. Under visual guidance I was unable to pass the wire into her renal pelvis and placed a 4.8 F variable length stent appropriately. She tolerated the procedure well was taken recovery room good condition. Pathology None sent Complications No immediate complications Condition Stable Disposition PACU
[2021-12-31 12:20] VITALS: BP 124/75; PULSE 126; RESP 16; O2SAT 100
[2021-12-31 12:50] VITALS: BP 123/85; PULSE 79; RESP 16
== END 2021-12-31 13:03 | disposition home or self-care (01) ==
PROVIDERS: PCP Internal Medicine; Visit Provider Urology
PROC: (CPT 52352; principal; 2021-12-31 11:30)
DX: N13.5 Crossing vessel and stricture of ureter without hydronephrosis (principal); I48.19 Other persistent atrial fibrillation; I35.1 Nonrheumatic aortic (valve) insufficiency; I35.0 Nonrheumatic aortic (valve) stenosis; I34.0 Nonrheumatic mitral (valve) insufficiency; I36.1 Nonrheumatic tricuspid (valve) insufficiency; I27.20 Pulmonary hypertension, unspecified; I31.3 Pericardial effusion (noninflammatory); Z79.01 Long term (current) use of anticoagulants
CPT/HCPCS: 52332; 74420; A9270; C1769; C2617; J0690; J2704; J3010; J7120

== ENCOUNTER 2022-04-30 13:39 | Outpatient (CLI) | payer MEDICARE, SELFPAY | END 2022-04-30 13:40 | disposition home or self-care (01) | LOC: ANHAUDIO 13:40 | PROVIDERS: PCP Internal Medicine; Visit Provider Otolaryngology | DX: H90.3 Sensorineural hearing loss, bilateral (principal) | CPT/HCPCS: 92557; 92567 ==

== ENCOUNTER 2022-06-22 09:40 | Outpatient (CLI) | payer MEDICARE, SELFPAY ==
[2022-06-22 11:07] LABS: Hematocrit 45.3 % (37.0-47.0); Hemoglobin 14.5 g/dL (12.0-15.0)
[2022-06-22 11:13] LABS: Prothrombin Time 12.7 Seconds (11.1-14.7)
[2022-06-22 11:14] LABS: Partial Thromboplastin Time 28.8 SECONDS (22.3-36.8)
[2022-06-22 11:17] LABS: Anion Gap 7 mmol/L (8-16); Blood Urea Nitrogen 29 mg/dL (7-17); Carbon Dioxide 28 mmol/L (22-30); Chloride 107 mmol/L (98-107); Estimated Glomerular Filt Rate 31; Glucose 53 mg/dL (65-110); Potassium 4.1 mmol/L (3.4-5.0); Sodium 142 mmol/L (137-145)
== END 2022-06-22 09:41 | disposition home or self-care (01) ==
LOC: ANHSURGERY 09:43
PROVIDERS: Anesthesiology; PCP Internal Medicine; Visit Provider Urology
DX: Z01.818 Encounter for other preprocedural examination (principal); Z79.899 Other long term (current) drug therapy; N18.9 Chronic kidney disease, unspecified; D64.9 Anemia, unspecified
CPT/HCPCS: 36415; 80048; 85014; 85018; 85610; 85730

== ENCOUNTER 2022-06-24 00:39 | Day surgery (SDC) | payer MEDICARE, SELFPAY ==
--- NOTE | 2022-06-14 07:03 | PM.HPGS ---
History of Present Illness History of Present Illness Consent: Risks, benefits, and alternatives have been discussed and questions answered. Patient agrees to proceed with procedure. Chief complaint: Right stayhorn Calculus Narrative: Nelia Peterson is a 86 year old female with a known chronic UPJ obstruction that is managed with a indwelling left ureteral stent.? She presents today for cystoscopy with ureteral stent exchange.? She is aware the risk including, not limited to, hematuria an adverse cardiopulmonary event Review of Systems Cardiovascular: Cardiovascular: Denies chest pain, Denies lightheadedness, Denies palpitations and Denies dyspnea Respiratory: Respiratory: Denies dyspnea Gastrointestinal: Gastrointestinal: Denies diarrhea, Denies nausea and Denies vomiting Genitourinary: Genitourinary: Denies hematuria and Denies dysuria Endocrine: Endocrine: Denies palpitations PMF Past Medical History Medical History Abnormal urinalysis Acute renal failure Aortic stenosis Atrial fibrillation with rapid ventricular response Atrial fibrillation with RVR Cerebral aneurysm Status post coil embolization. CHF (congestive heart failure) (~08/01/21) Chronic anemia Chronic kidney disease Current use of [facility] anticoagulation Degenerative disc disease Depression Diastolic congestive heart failure Dyslipidemia Endometriosis Hemorrhoids Histoplasmosis Hyperlipidemia Hypertension Hypothyroidism Intraoperative ureteral injury (07/2021) Kidney stones Including known right staghorn calculus. Nonspecific colitis Paroxysmal atrial fibrillation Pulmonary embolism Sepsis Surgical History Surgical History History of arthroplasty of right knee History of cataract extraction History of colonoscopy with polypectomy History of cystoscopy History of lumbar surgery History of tonsillectomy and adenoidectomy History of total hysterectomy with bilateral salpingo-oophorectomy (BSO) Status post coil embolization of cerebral aneurysm Family History Family History Mother , in her 70s Hypertension Father Hypertension Acute myocardial infarction Social History Social History Social History: Surrogate decision maker: Seth Peterson, grandson. Code status: Full code. Smoking packs per day: 0.5 Smoking cigarettes per day: 10.0 Years smoked: 10 Smoking pack-years: 5.00 Smoking status: Former smoker Tobacco type: cigarettes Second hand tobacco smoke exposure: No Smoking end date: 06/06/79 Alcohol intake: current Drinks per week: 1 Alcohol use details: 6 oz of wine. Substance use: never Substance use type: does not use Additional living arrangements comments: as of September 2020. She and her had 3 children, all whom are . Additional occupation/education comments: Retired. Gender identity (if verbalized by the patient): Female Sexual Orientation (if Verbalized by the Patient): Straight or Heterosexual Spiritual care concerns: No Meds Home Medications and Allergies Home Medications Medication Instructions Recorded Confirmed Type bupropion HCl 150 mg tablet,12 hr 150 mg PO BID 11/19/19 04/14/22 History sustained-release cholecalciferol (vitamin D3) 50 50 mcg PO DAILY 11/19/19 04/14/22 History mcg (2,000 unit) capsule (Vitamin D3) levothyroxine 50 mcg tablet 50 mcg PO QAM 11/19/19 04/14/22 History pravastatin 80 mg tablet 80 mg PO DAILY 11/19/19 04/14/22 History apixaban 2.5 mg tablet (Eliquis) 2.5 mg PO Q12HR #60 tabs 07/24/21 04/14/22 Rx tramadol 50 mg tablet 50 mg PO Q6H PRN Pain 08/01/21 04/14/22 History ferrous sulfate 325 mg (65 mg 325 mg PO BID #60 tabs 08/06/21 04/14/22 Rx iron) tablet losartan 50
[2022-06-18 09:11] VITALS: BMI 23.2
--- NOTE | 2022-06-18 09:20 | PC.NURSE ---
PRE-OP INSTRUCTIONS, PLEASE READ CAREFULLY Report to the Outpatient Waiting Room, entrance under the green pavilion located off [facility], at time _1100_ on date _06/24/22_. Planned Procedure Time: _1 PM_. Time changes happen often and if your time is changed the preop area will call you the afternoon before. - You and your visitor will be asked to self-screen and do not enter if you have any COVID symptoms. - Only one visitor is requested with a max of two and NO children visitors are allowed at this time. - The patient visitor may be requested to leave or wait in car when not with patient due to distancing restrictions. - A mask is optional within the hospital. Patients may have clear liquids (water, carbonated beverages, clear teas, apple juice) until 3 hours prior to surgery (1000 AM) with a maximum of 20 ounces. - No food from midnight until time of surgery Take the following medications with a SIP of water the morning of surgery: _BUPROPION, LEVOTHYROXINE, METOPROLOL, & TRAMADOL IF NEEDED_ Medications to discontinue - _ELIQUIS PER DR. PAUL'S INSTRUCTIONS (PT STATES 3 DAYS PRIOR TO SURGERY), Date to take last dose 06/20/22__ Please no make-up, nail telugu, hairspray, perfume, deodorant, or body powder the day of surgery. No jewelry (including any body piercings) or valuables the day of surgery, leave them at home. Please take a shower or bath the night before, or the morning of, surgery with an antibacterial soap. Wear comfortable, loose fitting clothing. - Jewelry must be removed prior to entering the operating room. Rings and piercings that are not removed may be cut off. - The hospital will not accept responsibility for valuables. - Please leave all valuables, including medications, at home the day of surgery. If you are going home after surgery, a licensed pile driver operator helper must drive you home. - NO public transportation without another adult if you receive anesthesia. - We recommend that an adult stay with you for 24 hours following discharge. - We also recommend that you do not drive, make important decision, drink alcoholic beverages, or take any drugs that were not prescribed by your health care provider for at least 24 hours after your discharge time. Follow any additional instructions given to you from your surgeon. If you or anyone in your household have experienced Covid symptoms in the past week, please notify your surgeon or the nurse liaison at the phone number below for possible testing. Telephone instructions given to _PATIENT_and asked if any additional questions and then verbalized understanding. Patient advised to call surgeon office or pre surgery nurse liaison [phone] if any additional questions.
--- NOTE | 2022-06-23 12:18 | WPDANESEPPF ---
Anes - Initial Pre Proc Eval Procedure: Operation Date: 06/24/22 12:30 Proposed Procedures p Cystoscopy, Left Ureteroscopy, Left Ureteral Stent Exchange - Nabil Shaikh MD Date/Time: 06/23/22 12:18 Surgeon: Nabil Shaikh MD Pre Op Diagnosis: Right stayhorn Calculus Patient Data Age: 86 Gender: F Height: 1.63 m Weight: 61.36 kg Allergies Allergy/AdvReac Type Severity Reaction Status Date / Time hydrocodone AdvReac Intermediate Nausea Verified 06/18/22 08:47 codeine AdvReac Mild Nausea Verified 06/18/22 08:47 heparin AdvReac Mild Nausea Verified 06/18/22 08:47 Home Medications Medication Instructions Recorded Confirmed Type bupropion HCl 150 mg tablet,12 hr 150 mg PO BID 11/19/19 06/24/22 History sustained-release cholecalciferol (vitamin D3) 50 50 mcg PO DAILY 11/19/19 06/24/22 History mcg (2,000 unit) capsule (Vitamin D3) levothyroxine 50 mcg tablet 50 mcg PO QAM 11/19/19 06/24/22 History pravastatin 80 mg tablet 80 mg PO DAILY 11/19/19 06/24/22 History apixaban 2.5 mg tablet (Eliquis) 2.5 mg PO Q12HR #60 tabs 07/24/21 06/24/22 Rx tramadol 50 mg tablet 50 mg PO Q6H PRN Pain 08/01/21 06/24/22 History ferrous sulfate 325 mg (65 mg 325 mg PO BID #60 tabs 08/06/21 06/24/22 Rx iron) tablet docusate sodium 100 mg tablet 100 mg PO DAILY PRN Constipation 08/12/21 06/24/22 History furosemide 20 mg tablet 20 mg PO PRN PRN edema 12/28/21 06/24/22 History metoprolol tartrate 50 mg tablet 75 mg PO BID 12/28/21 06/24/22 History nitrofurantoin 100 mg PO Q12H 06/18/22 06/24/22 History monohydrate/macrocrystals 100 mg capsule (Macrobid) Patient hx anesthesia problems: none Family hx anesthesia problems: none Results Review: All pre-operative results and documents have been reviewed as part of the pre-operative evaluation. [facility] Past Medical History Medical History (Updated 06/23/22 @ 12:21 by Jozef Gillis DO) Abnormal urinalysis Acute renal failure Aortic stenosis mild Atrial fibrillation with rapid ventricular response Atrial fibrillation with RVR Cerebral aneurysm Status post coil embolization. CHF (congestive heart failure) (~08/01/21) EF 60-65% Chronic anemia Chronic kidney disease Current use of [facility] anticoagulation Degenerative disc disease Depression Diastolic congestive heart failure Dyslipidemia Endometriosis Hemorrhoids Histoplasmosis Hyperlipidemia Hypertension Hypothyroidism Intraoperative ureteral injury (07/2021) Kidney stones Including known right staghorn calculus. Mitral regurgitation mod to severe Nonspecific colitis Paroxysmal atrial fibrillation Pulmonary embolism Pulmonary hypertension mild Sepsis Surgical History Surgical History History of arthroplasty of right knee History of cataract extraction History of colonoscopy with polypectomy History of cystoscopy History of lumbar surgery History of tonsillectomy and adenoidectomy History of total hysterectomy with bilateral salpingo-oophorectomy (BSO) Status post coil embolization of cerebral aneurysm Family History Family History Mother , in her 70s Hypertension Father Hypertension Acute myocardial infarction Social History Social History Social History: Surrogate decision maker: Seth Peterson, grandson. Code status: Full code. Smoking packs per day: 0.5 Smoking cigarettes per day: 10.0 Years smoked: 10 Smoking pack-years: 5.00 Smoking status: Former smoker Tobacco type: cigarettes Second hand tobacco smoke exposure: No Smoking end date: 06/06/79 Alcohol intake: current Drinks per week: 1 Alcohol use details: 6 oz of wine. Substance use: never Substance use type: does not use Living arrangements: alone Additional living arrangements commen
--- NOTE | ~2022-06-24 | XR_ITS ---
EXAMINATION: XR fluoroscopy no charge DATE: 06/24/2022 12:45 INDICATION: Left hydronephrosis. TECHNIQUE: A single intraoperative fluoroscopic view of the abdomen and pelvis was obtained. I was no t present. Fluoroscopy exposure time was 5 seconds. COMPARISON: CT abdomen and pelvis 07/29/2021 FINDINGS: There is a left internal ureteral stent in expected position. IMPRESSION: 1. Left internal ureteral stent in expected position. Reviewed, dictated and finalized at location A. [facility] [employer]
--- NOTE | 2022-06-24 06:30 | WPDHPUPDATE1 ---
History and Physical Update Update Date/Time: 06/24/22 06:30 History and Physical has been reviewed, including an updated exam of the patient. There are NO changes in the patient's condition. Risks, benefits, and alternatives have been discussed and questions answered. Patient agrees to proceed with procedure.
[2022-06-24 10:44] VITALS: BP 157/58; PULSE 55; RESP 18; TEMP 36.1; O2SAT 100
[2022-06-24 10:58] LABS: Glucose Point of Care 57 mg/dl (65-105)
[2022-06-24] MEDS: LACTATED RINGERS 1,000 ML 30 ML IV CONT (11:30)
--- NOTE | 2022-06-24 11:40 | P.PNAN_ITS ---
Anes - Eval Final PreProcedure Day of Procedure 06/24/22 11:40 Patient weight: normal Heart: irregular rhythm Lungs: clear to auscultation Airway: Mallampati scale class III Neurological: alert and oriented Last oral intake: >/= 8 hours ASA classification: IV Emergent: no Anesthetic plan: proceed Results Review: All pre-operative results and documents have been reviewed as part of the pre- operative evaluation. Informed Consent: The patient's anesthetic plan and its attendant risks and benefits were discussed with the patient/family/POA. Questions were solicited and answers provided to the satisfaction of the patient/family/POA.
[2022-06-24] MEDS: ceFAZolin 2 GM/D5W 50 ML 2 GM/50 ML BAG IVPB (12:13)
[2022-06-24] MEDS: LIDOCAINE HCL 2% GEL UROJET 10 ML PKG MUCOUS MEM (12:30)
--- NOTE | 2022-06-24 12:38 | W.PM.PROC2 ---
Procedure Note - Detailed Date of Procedure 06/24/22 Pre-op Diagnosis Right staghorn calculus, left UPJ obstruction Post-op Diagnosis Same Procedure Performed Cystoscopy, attempted left ureteral stent exchange Surgeon Nabil Shaikh MD Anesthesia MAC Description of Procedure Patient is brought to the operative suite she was prepped draped in routine sterile fashion while in dorsal lithotomy position. Systemic sedation is administered per the anesthesia department and 2% lidocaine jelly was introduced anterior urethra. Cystoscopy is undertaken with a 19 F rigid cystoscope. I can immediately see that she has dense calcifications which have formed on the bladder coil of her indwelling ureteral stent. The remainder of the bladder was without foreign body or neoplasm. I gently tried to remove the stent without success. Under fluoroscopy I can see that there is likely significant encrustation of the renal coil. At this point I opted to back golf and plan ESWL with stent exchange. Drains Yes Packing No Pathology None sent Complications No immediate complications
[2022-06-24 12:45] VITALS: BP 105/44; PULSE 54; RESP 14; O2SAT 100
[2022-06-24 13:15] VITALS: BP 146/49; PULSE 47; RESP 16
== END 2022-06-24 13:55 | disposition home or self-care (01) ==
PROVIDERS: PCP Internal Medicine; Visit Provider Urology
PROC: (CPT 52352; principal; 2022-06-24 12:30)
DX: N13.2 Hydronephrosis with renal and ureteral calculous obstruction (principal); Z96.0 Presence of urogenital implants; I13.0 Hypertensive heart and chronic kidney disease with heart failure and stage 1 through stage 4 chronic kidney disease, or unspecified chronic kidney disease; I50.30 Unspecified diastolic (congestive) heart failure; N18.9 Chronic kidney disease, unspecified; I48.91 Unspecified atrial fibrillation; D64.9 Anemia, unspecified; F32.A Depression, unspecified; E78.5 Hyperlipidemia, unspecified; E03.9 Hypothyroidism, unspecified; I48.0 Paroxysmal atrial fibrillation; I34.0 Nonrheumatic mitral (valve) insufficiency; I35.0 Nonrheumatic aortic (valve) stenosis; Z86.711 Personal history of pulmonary embolism; Z79.01 Long term (current) use of anticoagulants; Z87.891 Personal history of nicotine dependence
CPT/HCPCS: 52000; 36415; 80048; 82948; 85014; 85018; 85610; 85730; 99199; A9270; C1769; J0690; J2405; J2704; J3010; J7120

== ENCOUNTER 2022-07-21 15:48 | Inpatient (IN) | payer MEDICARE, SELFPAY ==
[2022-07-21] VITALS (15 sets, daily range): BP systolic 48–126; BP diastolic 24–91; PULSE 90–121; RESP 12–25; TEMP 36.4; O2SAT 14–100
--- NOTE | ~2022-07-21 | CT_ITS ---
EXAMINATION: CT abdomen pelvis wo con DATE: 07/21/2022 23:00 INDICATION: Acute renal failure TECHNIQUE: Computed tomography (CT) of the abdomen and pelvis was performed without intravenous contr ast. Automated exposure control and iterative reconstruction technique were employed. The dose-length product was 343.80 mGy-cm. COMPARISON: 07/29/2021. FINDINGS: Lower thorax: Minimal bilateral basilar scar/atelectasis. Multiple calcified granulomas. Coronary art jose rafael calcification. Liver: Granulomatous calcification. Biliary/Gallbladder: Cholelithiasis. No bile duct dilation. 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 Granulomatous calcification. Adrenals:No mass. Kidneys: Left ureteral stent, proximal and distal coils are surrounded by amorphous calcification in the left renal pelvis and urinary bladder. Mild left pelviectasis, blunted calyces, and inflammatory change about the renal pelvis. Nonobstructing left inferior pole calcification. Staghorn calculus on the right. Right renal atrophy. GI tract: No small or large bowel dilation. Appendix not visualized Diverticulosis without diverticul itis. Mesentery/Peritoneum: No ascites, mass, or free air. Retroperitoneum: No mass. Atherosclerotic abdominal aortic and/or arterial calcifications. Pelvis: Small bladder stone in the right lateral aspect of the urinary bladder. No significant bladde r wall thickening. Uterus not visualized. Soft Tissues: 12.5 cm right intramuscular gluteal lipoma. Bones: No acute osseous finding. IMPRESSION: Left ureteral stent, with amorphous calcification surrounding the proximal and distal coils, stent pa tency is questionable. Mild left pelvicaliectasis with surrounding inflammatory change. Additional ch ronic and incidental findings detailed above. Reviewed, dictated and finalized at location K. SPECIALIST IMPRESSION: Left ureteral stent, with amorphous calcification surrounding the proximal and distal coils, stent patency is questionable. Mild left pelvicaliectasis with langley rrounding inflammatory change. Additional chronic and incidental findings detai led above.
--- NOTE | ~2022-07-21 | XR_ITS ---
EXAMINATION: XR chest 1V portable Exam Date/Time: 07/21/2022 19:50 DRY CLEANER HAND HISTORY: dehydration Comparison: 08/01/2021. RESULT: Lines, tubes, and devices: None. Lungs and pleura: Clear. Innumerable pulmonary, hilar, and mediastinal granulomas Cardiomediastinal silhouette: Stable. Other: No acute osseous or upper abdominal finding. IMPRESSION: No acute cardiopulmonary process. Reviewed, dictated and finalized at location K. CLEANER HAND
--- NOTE | 2022-07-21 16:01 | ECG_ITS ---
Measurements Intervals [place] Rate: 109 P: MD: 0 QRS: 62 QRSD: 97 T: 50 QT: 332 QTc: 447 Interpretive Statements ATRIAL FIBRILLATION WITH RAPID VENTRICULAR RESPONSE SEPTAL MYOCARDIAL INFARCTION , PROBABLY OLD [40+ ms Q WAVE IN V1/V2] COMPARED TO ECG 08/01/2021 12:59:01 NO SIGNIFICANT CHANGES Electronically Signed On 07-22-2022 14:50:40 [employer] by Uzma Law M.D.
[2022-07-21 17:53] LABS: Basophils Absolute Auto 0.1 K/mm3 (0.0-0.1); Basophils Percent Auto 0.8 % (0.2-1.2); Eosinophils Absolute Auto 0.1 K/mm3 (0-0.3); Eosinophils Percent Auto 1.1 % (0-4.4); Hematocrit 45.3 % (37.0-47.0); Hemoglobin 14.6 g/dL (12.0-15.0); Immature Granulocyte Absolute 0.02 K/mm3 (0.00-0.031); Immature Granulocyte Percent A 0.3 % (0-0.5); Lymphocytes Percent Auto 20.8 % (18.3-44.2); Mean Corpuscular HGB Conc 32.2 g/dl (32-36); Mean Corpuscular Hemoglobin 30.7 pg (26-34); Mean Corpuscular Volume 95.4 fl (80-100); Mean Platelet Volume 10.1 fl (7.4-10.4); Monocytes Absolute Auto 0.5 K/mm3 (0.1-0.6); Monocytes Percent Auto 6.5 % (2.6-8.5); Neutrophils Absolute Auto 5.1 K/mm3 (1.3-6.7); Neutrophils Percent Auto 70.5 % (45.5-73.1); Platelet Count Result 169 k/mm3 (150-375); Red Blood Count 4.75 M/mm3 (4.2-5.4); Red Cell Distribution Width 13.3 % (11.5-14.5); White Blood Count 7.2 K/mm3 (4.5-10.0)
[2022-07-21 18:15] LABS: Alanine Aminotransferase 26 U/L (6-35); Alkaline Phosphatase 91 U/L (38-126); Anion Gap 7 mmol/L (8-16); Aspartate Amino Transferase 33 U/L (14-36); Bilirubin,Total 0.5 mg/dL (0.2-1.3); Blood Urea Nitrogen 32 mg/dL (7-17); Carbon Dioxide 21 mmol/L (22-30); Chloride 107 mmol/L (98-107); Estimated CRCL calculation 14 ml/min; Estimated Glomerular Filt Rate 19; Glucose 100 mg/dL (65-110); Sodium 135 mmol/L (137-145)
--- NOTE | 2022-07-21 19:50 | ED.GENADULT ---
HPI - General Adult General Chief complaint: Dizziness Stated complaint: dizzy Time Seen by Provider: 07/21/22 19:23 History of Present Illness HPI narrative: An 86-year-old female presenting ED with a chief complaint of dizziness. Patient says over the last 2 days every time that she stands up she notes that she is becoming lightheaded. Patient notes that she has had decreased oral intake over the last week or so because she does not have an appetite. She has been nauseous when she stands but denies vomiting or diarrhea. She denies fever, chills, chest pain difficulty breathing abdominal pain. She does admit to having blood in her urine and she is scheduled for urology procedure w/ Dr. Shaikh. she denies double vision, dysphagia, dysarthria or distinct CO. She denies numbness tingling weakness in extremity. Related Data Home Medications Medication Instructions Recorded Confirmed bupropion HCl 150 mg tablet,12 hr 150 mg PO BID 11/19/19 07/20/22 sustained-release cholecalciferol (vitamin D3) 50 50 mcg PO DAILY 11/19/19 07/20/22 mcg (2,000 unit) capsule (Vitamin D3) levothyroxine 50 mcg tablet 50 mcg PO QAM 11/19/19 07/20/22 pravastatin 80 mg tablet 80 mg PO DAILY 11/19/19 07/20/22 tramadol 50 mg tablet 50 mg PO Q6H PRN Pain 08/01/21 07/20/22 docusate sodium 100 mg tablet 100 mg PO DAILY PRN Constipation 08/12/21 07/20/22 furosemide 20 mg tablet 20 mg PO PRN PRN edema 12/28/21 07/20/22 metoprolol tartrate 50 mg tablet 75 mg PO BID 12/28/21 07/20/22 sulfamethoxazole 800 1 tablet PO Q12H 07/20/22 07/20/22 mg-trimethoprim 160 mg tablet Allergies Allergy/AdvReac Type Severity Reaction Status Date / Time hydrocodone AdvReac Intermediate Nausea Verified 07/20/22 12:49 codeine AdvReac Mild Nausea Verified 07/20/22 12:49 heparin AdvReac Mild Nausea Verified 07/20/22 12:49 [facility] Past Medical History Medical History Abnormal urinalysis Acute renal failure Aortic stenosis mild Atrial fibrillation with rapid ventricular response Atrial fibrillation with RVR Cerebral aneurysm Status post coil embolization. CHF (congestive heart failure) (~08/01/21) EF 60-65% Chronic anemia Chronic kidney disease Current use of [facility] anticoagulation Degenerative disc disease Depression Diastolic congestive heart failure Dyslipidemia Endometriosis Hemorrhoids Histoplasmosis Hyperlipidemia Hypertension Hypothyroidism Intraoperative ureteral injury (07/2021) Kidney stones Including known right staghorn calculus. Mitral regurgitation mod to severe Nonspecific colitis Paroxysmal atrial fibrillation Pulmonary embolism Pulmonary hypertension mild Sepsis Surgical History Surgical History History of arthroplasty of right knee History of cataract extraction History of colonoscopy with polypectomy History of cystoscopy History of lumbar surgery History of tonsillectomy and adenoidectomy History of total hysterectomy with bilateral salpingo-oophorectomy (BSO) Status post coil embolization of cerebral aneurysm Family History Family History Mother , in her 70s Hypertension Father Hypertension Acute myocardial infarction Social History Social History Social History: Surrogate decision maker: Seth Peterson, grandson. Code status: Full code. Smoking packs per day: 0.5 Smoking cigarettes per day: 10.0 Years smoked: 15 Smoking pack-years: 7.50 Smoking status: Former smoker Tobacco type: cigarettes Second hand tobacco smoke exposure: No Smoking end date: 06/06/79 Alcohol intake: current Drinks per week: 1 Alcohol use details: 6 oz of wine. Substance use: never Substance use type: does not use Living arrangements: alone Narendra
[2022-07-21] MEDS: SODIUM CHLORIDE 0.9% IV 1,000 ML 999 ML IV CONT (19:55)
[2022-07-21 20:21] LABS: NT Pro B Type Natriuretic Pept 7430 pg/mL (19.9-100)
--- NOTE | 2022-07-21 20:57 | PC.NURSE ---
encouraged patient to provide urine sample. patient unable to at this time and patient refusing straight cath. patient understands to call RN when able to provide urine sample.
[2022-07-21 21:05] LABS: Influenza A QL RT-PCR Negative (Negative); Influenza B QL RT-PCR Negative (Negative); RSV RNA, RT-PCR Negative (Negative); SARS-CoV-2 RNA PCR Negative
--- NOTE | 2022-07-21 21:30 | PC.NURSE ---
assisted patient to [facility] at this time. patient still complaining of dizziness.
[2022-07-21 21:40] LABS: Add Urine Microscopic? YES; Appearance Urine Turbid (Clear); Bilirubin Urine 1+ (Negative); Color Urine Red (Yellow); Glucose Urine UA Negative (Negative); Ketones Urine Negative (Negative); Leukocyte Esterase Ur 3+ LEU/UL (Negative); Nitrate Urine Negative (Negative); Protein Urine 3+ mg/dL (Negative); Specific Grav Ur >= 1.030 (1.001-1.035); Urobilinogen Urine 0.2 mg/dL (<2.0); pH Urine 6.5 (5.0-9.0)
[2022-07-21 21:44] LABS: Blood Urine 4+ (Negative)
[2022-07-21 22:09] LABS: RBC Urine >75 /hpf (0-2); WBC Urine >75 /hpf
--- NOTE | 2022-07-21 22:19 | PM.IMHP ---
H&P: HPI History of Present Illness Date/Time: 07/21/22 22:19 Chief Complaint: 86 years old female with past medical history of brain aneurysm status post coiling nephrolithiasis staghorn stone recurrent UTI secondary to Enterococcus and E coli sensitive to ampicillin history of hypertension history of AFib on Eliquis and metoprolol presented to the hospital withdizziness worsening with standing associated with nausea denies vomiting patient denies fever or chills patient also complained of decreased appetite also patient has intermittent hematuria patient was seen recently by urologist was planned to have stent exchange but unfortunately was unsuccessful patient was planned for extracorporeal shockwave lithotripsy by dr carrasco on this coming Tuesday at the ER patient was found to have dehydration concern for UTI and also was found to have acute renal failure CT scan of the abdomen pending as patient has history of obstructive uropathy Review of Systems Review of Systems: Twelve system review was done negative except above PMFSH Past Medical History Medical History Abnormal urinalysis Acute renal failure Aortic stenosis mild Atrial fibrillation with rapid ventricular response Atrial fibrillation with RVR Cerebral aneurysm Status post coil embolization. CHF (congestive heart failure) (~08/01/21) EF 60-65% Chronic anemia Chronic kidney disease Current use of group home anticoagulation Degenerative disc disease Depression Diastolic congestive heart failure Dyslipidemia Endometriosis Hemorrhoids Histoplasmosis Hyperlipidemia Hypertension Hypothyroidism Intraoperative ureteral injury (07/2021) Kidney stones Including known right staghorn calculus. Mitral regurgitation mod to severe Nonspecific colitis Paroxysmal atrial fibrillation Pulmonary embolism Pulmonary hypertension mild Sepsis Surgical History Surgical History History of arthroplasty of right knee History of cataract extraction History of colonoscopy with polypectomy History of cystoscopy History of lumbar surgery History of tonsillectomy and adenoidectomy History of total hysterectomy with bilateral salpingo-oophorectomy (BSO) Status post coil embolization of cerebral aneurysm Family History Family History Mother , in her 70s Hypertension Father Hypertension Acute myocardial infarction Social History Social History Social History: Surrogate decision maker: Seth Peterson, grandson. Code status: Full code. Smoking packs per day: 0.5 Smoking cigarettes per day: 10.0 Years smoked: 15 Smoking pack-years: 7.50 Smoking status: Former smoker Tobacco type: cigarettes Second hand tobacco smoke exposure: No Smoking end date: 06/06/79 Alcohol intake: current Drinks per week: 1 Alcohol use details: 6 oz of wine. Substance use: never Substance use type: does not use Living arrangements: alone Additional living arrangements comments: as of September 2020. She and her had 3 children, all whom are . Additional occupation/education comments: Retired. Gender identity (if verbalized by the patient): Female Sexual Orientation (if Verbalized by the Patient): Straight or Heterosexual Spiritual care concerns: No Meds Home Medications and Allergies Home Medications Medication Instructions Recorded Confirmed Type bupropion HCl 150 mg tablet,12 hr 150 mg PO BID 11/19/19 07/20/22 History sustained-release cholecalciferol (vitamin D3) 50 50 mcg PO DAILY 11/19/19 07/20/22 History mcg (2,000 unit) capsule (Vitamin D3) levothyroxine 50 mcg tablet 50 mcg PO QAM 11/19/19 07/20/22 History pravastatin 80 mg tablet 80 mg PO DAILY 11/18
[2022-07-21] MEDS: SODIUM CHLORIDE 0.9% IV 1,000 ML 100 ML IV CONT (22:40)
[2022-07-21 23:04] LABS: Creatine Kinase < 20 U/L (30-135); Uric Acid 6.7 mg/dL (2.5-7.5)
[2022-07-21] MEDS: AMPICILLIN SULB 3 GM/NS 100 ML 3 GM/100 ML VIAL IVPB (23:05)
[2022-07-21 23:31] LABS: Creatinine Urine 110.4 mg/dL
[2022-07-21 23:43] LABS: Potassium Urine Random 31.7 meq/L; Sodium Urine Random 109 meq/L
[2022-07-22] VITALS (13 sets, daily range): BP systolic 104–143; BP diastolic 65–80; PULSE 68–114; RESP 16–18; TEMP 36.5–36.8; O2SAT 93–100; BMI 24.3
--- NOTE | 2022-07-22 00:02 | ADMGEN ---
This patient, Nelia Peterson, was admitted to Medical Room 255-. Patient/family oriented to hospital policies and general routines including ID bracelet, bed and alarms, visiting hours, pain management, procedures, bathroom and other care routines, personal items, smoking policy, room service/diet, and visiting hours. Information on how to activate the Rapid Response Team has been discussed. Patient/Family are encouraged to report perceived risks to care and to ask questions if they do not understand what they are told or what they should do.
[2022-07-22 02:26] LABS: Protein Urine Unable to determine mg/dL (Negative)
[2022-07-22 06:12] LABS: Basophils Percent Auto 0.8 % (0.2-1.2); Eosinophils Absolute Auto 0.1 K/mm3 (0-0.3); Eosinophils Percent Auto 1.1 % (0-4.4); Hematocrit 37.9 % (37.0-47.0); Hemoglobin 12.2 g/dL (12.0-15.0); Immature Granulocyte Absolute 0.01 K/mm3 (0.00-0.031); Immature Granulocyte Percent A 0.2 % (0-0.5); Immature Platelet Fraction Pct 1.7 % (0.9-11.2); Lymphocytes Absolute Auto 1.72 K/mm3 (0.9-3.2); Lymphocytes Percent Auto 32.8 % (18.3-44.2); Mean Corpuscular HGB Conc 32.2 g/dl (32-36); Mean Corpuscular Hemoglobin 30.5 pg (26-34); Mean Corpuscular Volume 94.8 fl (80-100); Mean Platelet Volume 9.9 fl (7.4-10.4); Monocytes Absolute Auto 0.5 K/mm3 (0.1-0.6); Monocytes Percent Auto 9.2 % (2.6-8.5); Neutrophils Absolute Auto 2.9 K/mm3 (1.3-6.7); Neutrophils Percent Auto 55.9 % (45.5-73.1); Platelet Count Result 122 k/mm3 (150-375); Red Cell Distribution Width 13.2 % (11.5-14.5); White Blood Count 5.2 K/mm3 (4.5-10.0)
[2022-07-22 06:22] LABS: Alanine Aminotransferase 24 U/L (6-35); Albumin Level 3.4 g/dL (3.5-5.1); Alkaline Phosphatase 72 U/L (38-126); Anion Gap 3 mmol/L (8-16); Aspartate Amino Transferase 27 U/L (14-36); Bilirubin,Total 0.4 mg/dL (0.2-1.3); Blood Urea Nitrogen 31 mg/dL (7-17); Calcium 8.4 mg/dL (8.4-10.2); Carbon Dioxide 22 mmol/L (22-30); Chloride 112 mmol/L (98-107); Estimated CRCL calculation 15 ml/min; Estimated Glomerular Filt Rate 21; Glucose 80 mg/dL (65-110); Potassium 4.6 mmol/L (3.4-5.0); Sodium 137 mmol/L (137-145)
--- NOTE | 2022-07-22 07:32 | WPDURCON ---
Assessment and Plan Assessment and plan (1) Acute UTI: Code(s): N39.0 - Urinary tract infection, site not specified Status: Acute (2) Obstruction of left ureteropelvic junction (UPJ): Code(s): N13.5 - Crossing vessel and stricture of ureter without hydronephrosis Status: Acute (3) Staghorn renal calculus: Code(s): N20.0 - Calculus of kidney Status: Acute Assessment and Plan: No change in our plans for lithotripsy to her left ureteral stent with subsequent replacement next Tuesday. Urology Consult Note HPI Date Seen: 07/22/22 Requesting Physician: Nena Mckeon PA-C Primary Care Provider: Andrés Viveros, Consult Narrative Narrative: Nelia Peterson is a 86 year old female is very well known to me with a large right staghorn renal calculus which we have, collectively, opted not to intervene for. 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 Attempted to exchange her stent a couple weeks ago but were unable due to proximal coil encrustation. She is scheduled for shockwave lithotripsy to the left ureteral stent with replacement next Tuesday. She is admitted with dizziness and nausea. She had a slight bump in her serum creatinine which is improved this morning. Review of Systems Cardiovascular: Cardiovascular: Denies chest pain, Denies lightheadedness, Denies palpitations and Denies dyspnea Respiratory: Respiratory: Denies dyspnea Gastrointestinal: Gastrointestinal: Denies diarrhea, Denies nausea and Denies vomiting Genitourinary: Genitourinary: Denies hematuria and Denies dysuria Endocrine: Endocrine: Denies palpitations [facility] Past Medical History Medical History Abnormal urinalysis Acute renal failure Aortic stenosis mild Atrial fibrillation with rapid ventricular response Atrial fibrillation with RVR Cerebral aneurysm Status post coil embolization. CHF (congestive heart failure) (~08/01/21) EF 60-65% Chronic anemia Chronic kidney disease Current use of [employer] anticoagulation Degenerative disc disease Depression Diastolic congestive heart failure Dyslipidemia Endometriosis Hemorrhoids Histoplasmosis Hyperlipidemia Hypertension Hypothyroidism Intraoperative ureteral injury (07/2021) Kidney stones Including known right staghorn calculus. Mitral regurgitation mod to severe Nonspecific colitis Paroxysmal atrial fibrillation Pulmonary embolism Pulmonary hypertension mild Sepsis Surgical History Surgical History History of arthroplasty of right knee History of cataract extraction History of colonoscopy with polypectomy History of cystoscopy History of lumbar surgery History of tonsillectomy and adenoidectomy History of total hysterectomy with bilateral salpingo-oophorectomy (BSO) Status post coil embolization of cerebral aneurysm Family History Family History Mother , in her 70s Hypertension Father Hypertension Acute myocardial infarction Social History Social History Social History: Surrogate decision maker: Seth Rowdy, grandson. Code status: Full code. Smoking packs per day: 0.5 Smoking cigarettes per day: 10.0 Years smoked: 15 Smoking pack-years: 7.50 Smoking status: Former smoker Tobacco type: cigarettes Second hand tobacco smoke exposure: No Smoking end date: 06/06/79 Alcohol intake: never Drinks per week: 1 Alcohol use details: 6 oz of wine. Substance use: never Substance use type: does not use Lack of Transportation: YES Lack of Food: Never True Current Housing: I Have Housing Concerned About Future Housing: No Difficulty Paying Gas/Electric Bills: No Difficulty Paying fo
[2022-07-22] MEDS: FAMOTIDINE 20 MG TABLET PO ×2 (08:52→21:48)
[2022-07-22] MEDS: polyethylene glycoL 3350 17 GM POWD.PACK PO (08:53)
[2022-07-22] MEDS: SODIUM CHLORIDE 0.9% IV 1,000 ML 100 ML IV CONT ×2 (11:00→21:50)
--- NOTE | 2022-07-22 15:19 | P.PNIM_ITS ---
Progress Note: A&P Assessment and Plan (1) Dizziness: Code(s): R42 - Dizziness and giddiness Status: Acute Assessment and Plan: patient presented with complaints of dizziness upon standing ongoing for 2 days * suspect multifactorial etiology to include dehydration, orthostatic hypotension, and UTI * patient does have history of ureter stenosis and mitral regurgitation which also may be contributing * continue to monitor orthostatic * consider repeat echocardiogram if no improvement following rehydration * implement fall precautions (2) Orthostatic hypotension: Code(s): I95.1 - Orthostatic hypotension Status: Acute Assessment and Plan: likely contributing to dizziness as above * noted to have sharp decline in BP on presentation * continue to monitor orthostatics q.shift * patient has been rehydrated with IV fluids * begin Landen hose * hold home metoprolol tartrate * monitor BP trends (3) Acute renal failure: Code(s): N17.9 - Acute kidney failure, unspecified Status: Acute Assessment and Plan: acute on chronic. Baseline creatinine around 1.2-1.4 * creatinine elevated to 2.4 on admission * slight improvement with IV fluids to 2.2 today * continue with IV fluid rehydration * may be related to recent Bactrim use. Bactrim has been discontinued * hold p.r.n. furosemide * monitor BMP * consider renal ultrasound if no improvement (4) Acute UTI: Code(s): N39.0 - Urinary tract infection, site not specified Status: Acute Assessment and Plan: urinalysis abnormal on presentation. patient has been treated for outpatient UTI with Bactrim for approximately 4 days * patient with history of Enterococcus UTI * continue IV Unasyn * culture results pending, await results and tailor antibiotics accordingly (5) Staghorn renal calculus: Code(s): N20.0 - Calculus of kidney Status: Acute Assessment and Plan: known issue being managed by Urology * plan for ESWL on Tuesday * appreciate urology recommendations (6) CHF (congestive heart failure): Onset Date: ~08/01/21 Qualifiers: Heart failure chronicity: unspecified Heart failure type: unspecified Qualified Code(s): I50.9 - Heart failure, unspecified Code(s): I50.9 - Heart failure, unspecified Status: Resolved Assessment and Plan: patient with history of chronic diastolic CHF * no evidence of volume overload at this time * continue gentle IV fluids while monitoring volume status closely to prevent hypervolemia Subjective Date/time seen: 07/22/22 15:19 Interval history: date of service: 07/22/2022 Nelia Peterson is an 86-year-old female with a history of atrial fibrillation on chronic anticoagulation, CHF, CKD, hyperlipidemia, hypertension, hypothyroidism, kidney stones ( being followed by Urology for staghorn calculus), and several other comorbidities who is seen in follow-up for dizziness and UTI. The patient states that she is feeling well today and she has not out of bed. When she is at rest she is comfortable but if she does get up and start walking she becomes dizzy and this triggers her to become nauseous. She denies episodes of emesis. At rest, she has no dizziness. She denies lightheadedness. She did have an episode of loose stool today. She noticed some abdominal cramping after she eats. She has no back or flank pain. No abdominal pain. Her dysuria has resolved and she denies urinary urgency or freque
--- NOTE | 2022-07-22 15:19 | PM.IMPN ---
Progress Note: A&P Assessment and Plan (1) Dizziness: Code(s): R42 - Dizziness and giddiness Status: Acute Assessment and Plan: patient presented with complaints of dizziness upon standing ongoing for 2 days suspect multifactorial etiology to include dehydration, orthostatic hypotension, and UTI patient does have history of ureter stenosis and mitral regurgitation which also may be contributing continue to monitor orthostatic consider repeat echocardiogram if no improvement following rehydration implement fall precautions (2) Orthostatic hypotension: Code(s): I95.1 - Orthostatic hypotension Status: Acute Assessment and Plan: likely contributing to dizziness as above noted to have sharp decline in BP on presentation continue to monitor orthostatics q.shift patient has been rehydrated with IV fluids begin Landen hose hold home metoprolol tartrate monitor BP trends (3) Acute renal failure: Code(s): N17.9 - Acute kidney failure, unspecified Status: Acute Assessment and Plan: acute on chronic. Baseline creatinine around 1.2-1.4 creatinine elevated to 2.4 on admission slight improvement with IV fluids to 2.2 today continue with IV fluid rehydration may be related to recent Bactrim use. Bactrim has been discontinued hold p.r.n. furosemide monitor BMP consider renal ultrasound if no improvement (4) Acute UTI: Code(s): N39.0 - Urinary tract infection, site not specified Status: Acute Assessment and Plan: urinalysis abnormal on presentation. patient has been treated for outpatient UTI with Bactrim for approximately 4 days patient with history of Enterococcus UTI continue IV Unasyn culture results pending, await results and tailor antibiotics accordingly (5) Staghorn renal calculus: Code(s): N20.0 - Calculus of kidney Status: Acute Assessment and Plan: known issue being managed by Urology plan for ESWL on Tuesday 225 appreciate urology recommendations (6) CHF (congestive heart failure): Onset Date: ~08/01/21 Qualifiers: Heart failure chronicity: unspecified Heart failure type: unspecified Qualified Code(s): I50.9 - Heart failure, unspecified Code(s): I50.9 - Heart failure, unspecified Status: Resolved Assessment and Plan: patient with history of chronic diastolic CHF no evidence of volume overload at this time continue gentle IV fluids while monitoring volume status closely to prevent hypervolemia Subjective Date/time seen: 07/22/22 15:19 Interval history: date of service: 07/22/2022 Nelia Peterson is an 86-year-old female with a history of atrial fibrillation on chronic anticoagulation, CHF, CKD, hyperlipidemia, hypertension, hypothyroidism, kidney stones ( being followed by Urology for staghorn calculus), and several other comorbidities who is seen in follow-up for dizziness and UTI. The patient states that she is feeling well today and she has not out of bed. When she is at rest she is comfortable but if she does get up and start walking she becomes dizzy and this triggers her to become nauseous. She denies episodes of emesis. At rest, she has no dizziness. She denies lightheadedness. She did have an episode of loose stool today. She noticed some abdominal cramping after she eats. She has no back or flank pain. No abdominal pain. Her dysuria has resolved and she denies urinary urgency or frequency. She does endorse hematuria which has been ongoing for about 6 months that is unchanged. She has noticed some particles or sediment in her urine the past couple of days. She denies fevers or chills. No shortness breath, cough, chest pain, or palpitations. Review of Systems Review of Systems: All systems reviewed & are unremarkable except as noted in HPI and below Exam Narrative: General: well-nourished,
[2022-07-22] MEDS: AMPICILLIN SULB 3 GM/NS 100 ML 3 GM/100 ML VIAL IVPB (21:48)
[2022-07-23] VITALS (13 sets, daily range): BP systolic 97–140; BP diastolic 49–75; PULSE 55–111; RESP 16–18; TEMP 36.4; O2SAT 90–100
[2022-07-23 05:55] LABS: Basophils Percent Auto 0.8 % (0.2-1.2); Eosinophils Absolute Auto 0.1 K/mm3 (0-0.3); Eosinophils Percent Auto 3.7 % (0-4.4); Hematocrit 38.5 % (37.0-47.0); Hemoglobin 12.3 g/dL (12.0-15.0); Immature Granulocyte Absolute 0.01 K/mm3 (0.00-0.031); Immature Granulocyte Percent A 0.3 % (0-0.5); Lymphocytes Absolute Auto 1.34 K/mm3 (0.9-3.2); Lymphocytes Percent Auto 35.4 % (18.3-44.2); Mean Corpuscular HGB Conc 31.9 g/dl (32-36); Mean Corpuscular Hemoglobin 30.7 pg (26-34); Mean Platelet Volume 9.6 fl (7.4-10.4); Monocytes Absolute Auto 0.4 K/mm3 (0.1-0.6); Monocytes Percent Auto 10.6 % (2.6-8.5); Neutrophils Absolute Auto 1.9 K/mm3 (1.3-6.7); Neutrophils Percent Auto 49.2 % (45.5-73.1); Platelet Count Result 101 k/mm3 (150-375); Red Blood Count 4.01 M/mm3 (4.2-5.4); Red Cell Distribution Width 13.3 % (11.5-14.5); White Blood Count 3.8 K/mm3 (4.5-10.0)
[2022-07-23 06:05] LABS: Alanine Aminotransferase 23 U/L (6-35); Albumin Level 3.2 g/dL (3.5-5.1); Alkaline Phosphatase 63 U/L (38-126); Anion Gap 6 mmol/L (8-16); Aspartate Amino Transferase 32 U/L (14-36); Bilirubin,Total 0.4 mg/dL (0.2-1.3); Blood Urea Nitrogen 24 mg/dL (7-17); Calcium 8.2 mg/dL (8.4-10.2); Carbon Dioxide 17 mmol/L (22-30); Chloride 115 mmol/L (98-107); Estimated CRCL calculation 19 ml/min; Estimated Glomerular Filt Rate 29; Glucose 75 mg/dL (65-110); Potassium 4.5 mmol/L (3.4-5.0); Sodium 138 mmol/L (137-145)
[2022-07-23] MEDS: FAMOTIDINE 20 MG TABLET PO ×2 (08:11→22:02)
--- NOTE | 2022-07-23 12:01 | P.PNIM_ITS ---
Progress Note: A&P Assessment and Plan (1) Dizziness: Code(s): R42 - Dizziness and giddiness Status: Acute Assessment and Plan: patient presented with complaints of dizziness upon standing ongoing for 2 days * suspect multifactorial etiology to include dehydration, orthostatic hypotension, and UTI * patient does have history of aortic stenosis and mitral regurgitation which also may be contributing * continue to monitor orthostatics * symptoms have improved today * consider repeat echocardiogram if worsening. Otherwise will refer pt for outpatient echo for monitoring * implement fall precautions (2) Orthostatic hypotension: Code(s): I95.1 - Orthostatic hypotension Status: Acute Assessment and Plan: likely contributing to dizziness as above * noted to have sharp decline in BP on presentation * continue to monitor orthostatics q.shift * 40 point drop in systolic BP upon standing yesterday evening * patient has been rehydrated with IV fluids and is euvolemic on exam * continue Landen hose * hold home metoprolol tartrate and prn furosemide * monitor BP trends (3) Acute renal failure: Code(s): N17.9 - Acute kidney failure, unspecified Status: Acute Assessment and Plan: acute on chronic. Baseline creatinine around 1.2-1.4 * creatinine elevated to 2.4 on admission * continued improvement with IV fluids to 1.7 today * IV fluids discontinued as pt has been adequately rehydrated and is tolerating PO intake * may be related to recent Bactrim use. Bactrim has been discontinued * hold p.r.n. furosemide * monitor BMP * consider renal ultrasound if no improvement (4) Acute UTI: Code(s): N39.0 - Urinary tract infection, site not specified Status: Acute Assessment and Plan: urinalysis abnormal on presentation. patient has been treated for outpatient UTI with Bactrim for approximately 4 days * patient with history of Enterococcus UTI * urine culture with preliminary growth of E. coli * continue IV Unasyn while awaiting culture results and tailor antibiotics accordingly (5) Staghorn renal calculus: Code(s): N20.0 - Calculus of kidney Status: Acute Assessment and Plan: known issue being managed by Urology * plan for ESWL on Monday 07/31 * appreciate urology recommendations (6) CHF (congestive heart failure): Onset Date: ~08/01/21 Qualifiers: Heart failure chronicity: unspecified Heart failure type: unspecified Qualified Code(s): I50.9 - Heart failure, unspecified Code(s): I50.9 - Heart failure, unspecified Status: Resolved Assessment and Plan: patient with history of chronic diastolic CHF * no evidence of volume overload at this time and patient tolerated rehydration * she is on prn furosemide at home which is being held at this time Subjective Date/time seen: 07/23/22 12:01 Interval history: date of service: 07/23/2022 Nelia Peterson is an 86-year-old female with a history of atrial fibrillation on chronic anticoagulation, CHF, CKD, hyperlipidemia, hypertension, hypothyroidism, kidney stones (being followed by Urology for staghorn calculus), and several other comorbidities who is seen in follow-up for dizziness and UTI. she is feeling improved today. At rest she has no dizziness. She able to get up to restroom today is back to bed and did not endorse any dizziness with this. She states typically her symptoms occur when she is up and walking for a bit long
--- NOTE | 2022-07-23 12:01 | PM.IMPN ---
Progress Note: A&P Assessment and Plan (1) Dizziness: Code(s): R42 - Dizziness and giddiness Status: Acute Assessment and Plan: patient presented with complaints of dizziness upon standing ongoing for 2 days suspect multifactorial etiology to include dehydration, orthostatic hypotension, and UTI patient does have history of aortic stenosis and mitral regurgitation which also may be contributing continue to monitor orthostatics symptoms have improved today consider repeat echocardiogram if worsening. Otherwise will refer pt for outpatient echo for monitoring implement fall precautions (2) Orthostatic hypotension: Code(s): I95.1 - Orthostatic hypotension Status: Acute Assessment and Plan: likely contributing to dizziness as above noted to have sharp decline in BP on presentation continue to monitor orthostatics q.shift 40 point drop in systolic BP upon standing yesterday evening patient has been rehydrated with IV fluids and is euvolemic on exam continue Landen hose hold home metoprolol tartrate and prn furosemide monitor BP trends (3) Acute renal failure: Code(s): N17.9 - Acute kidney failure, unspecified Status: Acute Assessment and Plan: acute on chronic. Baseline creatinine around 1.2-1.4 creatinine elevated to 2.4 on admission continued improvement with IV fluids to 1.7 today IV fluids discontinued as pt has been adequately rehydrated and is tolerating PO intake may be related to recent Bactrim use. Bactrim has been discontinued hold p.r.n. furosemide monitor BMP consider renal ultrasound if no improvement (4) Acute UTI: Code(s): N39.0 - Urinary tract infection, site not specified Status: Acute Assessment and Plan: urinalysis abnormal on presentation. patient has been treated for outpatient UTI with Bactrim for approximately 4 days patient with history of Enterococcus UTI urine culture with preliminary growth of E. coli continue IV Unasyn while awaiting culture results and tailor antibiotics accordingly (5) Staghorn renal calculus: Code(s): N20.0 - Calculus of kidney Status: Acute Assessment and Plan: known issue being managed by Urology plan for ESWL on Monday 07/31 appreciate urology recommendations (6) CHF (congestive heart failure): Onset Date: ~08/01/21 Qualifiers: Heart failure chronicity: unspecified Heart failure type: unspecified Qualified Code(s): I50.9 - Heart failure, unspecified Code(s): I50.9 - Heart failure, unspecified Status: Resolved Assessment and Plan: patient with history of chronic diastolic CHF no evidence of volume overload at this time and patient tolerated rehydration she is on prn furosemide at home which is being held at this time Subjective Date/time seen: 07/23/22 12:01 Interval history: date of service: 07/23/2022 Nelia Peterson is an 86-year-old female with a history of atrial fibrillation on chronic anticoagulation, CHF, CKD, hyperlipidemia, hypertension, hypothyroidism, kidney stones (being followed by Urology for staghorn calculus), and several other comorbidities who is seen in follow-up for dizziness and UTI. she is feeling improved today. At rest she has no dizziness. She able to get up to restroom today is back to bed and did not endorse any dizziness with this. She states typically her symptoms occur when she is up and walking for a bit longer though. Discussed walking in the halls today to monitor. Patient denies lightheadedness. She denies nausea, vomiting, fever, or chills. She denies chest pain or palpitations. She is overall she is feeling better. She had mild sore throat this morning when she woke up but this seems to have resolved. She endorses chronic hematuria secondary to kidney stones, however she states her urine is more clear today and she feels th
--- NOTE | 2022-07-23 14:10 | PC.NURSE ---
Hand Trucker called [facility] made aware pt has no IV access, and nurses times three attempted and no success. Pt state usually need vascular nurse to put in when she is in hospital. Provider reports will talk with ID pharmacist and see if medication can be changed to PO
[2022-07-23] MEDS: FERROUS SULFATE 324 MG TABLET PO (16:57)
[2022-07-23] MEDS: buPROPion HCL SR (12 HR) 150 MG TAB PO (16:57)
[2022-07-23] MEDS: CEFDINIR 300 MG CAPSULE PO (22:02)
[2022-07-23] MEDS: APIXABAN 2.5 MG TABLET PO (22:02)
[2022-07-24] VITALS (10 sets, daily range): BP systolic 106–153; BP diastolic 61–87; PULSE 80–106; RESP 17–18; TEMP 36.3–37.1; O2SAT 99–100
[2022-07-24] MEDS: METOPROLOL TARTRATE 25 MG TABLET PO (00:12)
[2022-07-24] MEDS: LEVOTHYROXINE SODIUM 50 MCG TABLET PO (05:49)
[2022-07-24 06:27] LABS: Eosinophils Absolute Auto 0.2 K/mm3 (0-0.3); Eosinophils Percent Auto 4.5 % (0-4.4); Hematocrit 36.7 % (37.0-47.0); Hemoglobin 11.7 g/dL (12.0-15.0); Immature Granulocyte Absolute 0.01 K/mm3 (0.00-0.031); Immature Granulocyte Percent A 0.2 % (0-0.5); Lymphocytes Absolute Auto 1.31 K/mm3 (0.9-3.2); Lymphocytes Percent Auto 31.1 % (18.3-44.2); Mean Corpuscular HGB Conc 31.9 g/dl (32-36); Mean Corpuscular Hemoglobin 30.9 pg (26-34); Mean Corpuscular Volume 96.8 fl (80-100); Mean Platelet Volume 9.4 fl (7.4-10.4); Monocytes Absolute Auto 0.4 K/mm3 (0.1-0.6); Monocytes Percent Auto 10.5 % (2.6-8.5); Neutrophils Absolute Auto 2.2 K/mm3 (1.3-6.7); Neutrophils Percent Auto 52.7 % (45.5-73.1); Platelet Count Result 101 k/mm3 (150-375); Red Blood Count 3.79 M/mm3 (4.2-5.4); Red Cell Distribution Width 13.4 % (11.5-14.5); White Blood Count 4.2 K/mm3 (4.5-10.0)
[2022-07-24 06:37] LABS: Alanine Aminotransferase 25 U/L (6-35); Albumin Level 3.3 g/dL (3.5-5.1); Alkaline Phosphatase 65 U/L (38-126); Anion Gap 3 mmol/L (8-16); Aspartate Amino Transferase 34 U/L (14-36); Bilirubin,Total 0.4 mg/dL (0.2-1.3); Blood Urea Nitrogen 22 mg/dL (7-17); Calcium 8.6 mg/dL (8.4-10.2); Carbon Dioxide 20 mmol/L (22-30); Chloride 110 mmol/L (98-107); Estimated CRCL calculation 20 ml/min; Estimated Glomerular Filt Rate 31; Glucose 78 mg/dL (65-110); Potassium 4.4 mmol/L (3.4-5.0); Sodium 133 mmol/L (137-145)
[2022-07-24] MEDS: CEFDINIR 300 MG CAPSULE PO ×2 (08:19→20:38)
[2022-07-24] MEDS: FERROUS SULFATE 324 MG TABLET PO ×2 (08:19→17:05)
[2022-07-24] MEDS: buPROPion HCL SR (12 HR) 150 MG TAB PO ×2 (08:19→17:05)
[2022-07-24] MEDS: PRAVASTATIN SODIUM 20 MG TABLET 80 MG PO (08:19)
[2022-07-24] MEDS: CHOLECALCIFEROL 1,000 UNITS TABLET 2000 UNITS PO (08:19)
[2022-07-24] MEDS: FAMOTIDINE 20 MG TABLET PO ×2 (08:19→20:38)
--- NOTE | 2022-07-24 15:22 | P.PNIM_ITS ---
Progress Note: A&P Assessment and Plan (1) Dizziness: Code(s): R42 - Dizziness and giddiness Status: Acute Assessment and Plan: patient presented with complaints of dizziness upon standing ongoing for 2 days * suspect multifactorial etiology to include dehydration, orthostatic hypotension, and UTI * patient does have history of aortic stenosis and mitral regurgitation which also may be contributing * continue to monitor orthostatics * symptoms have improved today * encouraged increased ambulation * consider repeat echocardiogram if worsening. Otherwise will refer pt for outpatient echo for monitoring * implement fall precautions * hopeful discharge home tomorrow if continued improvement (2) Orthostatic hypotension: Code(s): I95.1 - Orthostatic hypotension Status: Acute Assessment and Plan: likely contributing to dizziness as above * noted to have sharp decline in BP on presentation * continue to monitor orthostatics q.shift * 40 point drop in systolic BP upon standing on 07/22 * orthostatics yesterday evening were negative * patient has been rehydrated with IV fluids and is euvolemic on exam * continue Landen hose * hold home metoprolol tartrate and prn furosemide * monitor BP trends (3) Acute renal failure: Code(s): N17.9 - Acute kidney failure, unspecified Status: Acute Assessment and Plan: acute on chronic. Baseline creatinine around 1.2-1.4 * creatinine elevated to 2.4 on admission * continued improvement with IV fluids to 1.6 today * IV fluids discontinued on 07/23 as pt has been adequately rehydrated and is tolerating PO intake * may be related to recent Bactrim use. Bactrim has been discontinued * hold p.r.n. furosemide * monitor BMP (4) Acute UTI: Code(s): N39.0 - Urinary tract infection, site not specified Status: Acute Assessment and Plan: urinalysis abnormal on presentation. patient has been treated for outpatient UTI with Bactrim for approximately 4 days * urine culture with growth of 50-100k E coli * susceptible to ceftriaxone. Continue with p.o. cefdinir to complete a 7 day course (5) Staghorn renal calculus: Code(s): N20.0 - Calculus of kidney Status: Acute Assessment and Plan: known issue being managed by Urology * planning for ESWL on Sunday 07/30 * appreciate urology recommendations (6) CHF (congestive heart failure): Onset Date: ~08/01/21 Qualifiers: Heart failure chronicity: unspecified Heart failure type: unspecified Qualified Code(s): I50.9 - Heart failure, unspecified Code(s): I50.9 - Heart failure, unspecified Status: Resolved Assessment and Plan: Patient with history of chronic diastolic CHF * no evidence of volume overload at this time and patient tolerated rehydration * she is on prn furosemide at home which is being held at this time Subjective Date/time seen: 07/24/22 15:22 Interval history: date of service: 07/24/2022 Nelia Peterson is an 86-year-old female with a history of atrial fibrillation on chronic anticoagulation, CHF, CKD, hyperlipidemia, hypertension, hypothyroidism, kidney stones (being followed by Urology for staghorn calculus), and several other comorbidities who is seen in follow-up for dizziness and UTI. Patient is feeling better today. She has no dizziness or lightheadedness. She has been able to get up and walk to and from the restroom independently and feels comfortable with this. She
--- NOTE | 2022-07-24 15:22 | PM.IMPN ---
Progress Note: A&P Assessment and Plan (1) Dizziness: Code(s): R42 - Dizziness and giddiness Status: Acute Assessment and Plan: patient presented with complaints of dizziness upon standing ongoing for 2 days suspect multifactorial etiology to include dehydration, orthostatic hypotension, and UTI patient does have history of aortic stenosis and mitral regurgitation which also may be contributing continue to monitor orthostatics symptoms have improved today encouraged increased ambulation consider repeat echocardiogram if worsening. Otherwise will refer pt for outpatient echo for monitoring implement fall precautions hopeful discharge home tomorrow if continued improvement (2) Orthostatic hypotension: Code(s): I95.1 - Orthostatic hypotension Status: Acute Assessment and Plan: likely contributing to dizziness as above noted to have sharp decline in BP on presentation continue to monitor orthostatics q.shift 40 point drop in systolic BP upon standing on 07/22 orthostatics yesterday evening were negative patient has been rehydrated with IV fluids and is euvolemic on exam continue Landen hose hold home metoprolol tartrate and prn furosemide monitor BP trends (3) Acute renal failure: Code(s): N17.9 - Acute kidney failure, unspecified Status: Acute Assessment and Plan: acute on chronic. Baseline creatinine around 1.2-1.4 creatinine elevated to 2.4 on admission continued improvement with IV fluids to 1.6 today IV fluids discontinued on 07/23 as pt has been adequately rehydrated and is tolerating PO intake may be related to recent Bactrim use. Bactrim has been discontinued hold p.r.n. furosemide monitor BMP (4) Acute UTI: Code(s): N39.0 - Urinary tract infection, site not specified Status: Acute Assessment and Plan: urinalysis abnormal on presentation. patient has been treated for outpatient UTI with Bactrim for approximately 4 days urine culture with growth of 50-100k E coli susceptible to ceftriaxone. Continue with p.o. cefdinir to complete a 7 day course (5) Staghorn renal calculus: Code(s): N20.0 - Calculus of kidney Status: Acute Assessment and Plan: known issue being managed by Urology planning for ESWL on Sunday 07/30 appreciate urology recommendations (6) CHF (congestive heart failure): Onset Date: ~08/01/21 Qualifiers: Heart failure chronicity: unspecified Heart failure type: unspecified Qualified Code(s): I50.9 - Heart failure, unspecified Code(s): I50.9 - Heart failure, unspecified Status: Resolved Assessment and Plan: Patient with history of chronic diastolic CHF no evidence of volume overload at this time and patient tolerated rehydration she is on prn furosemide at home which is being held at this time Subjective Date/time seen: 07/24/22 15:22 Interval history: date of service: 07/24/2022 Nelia Peterson is an 86-year-old female with a history of atrial fibrillation on chronic anticoagulation, CHF, CKD, hyperlipidemia, hypertension, hypothyroidism, kidney stones (being followed by Urology for staghorn calculus), and several other comorbidities who is seen in follow-up for dizziness and UTI. Patient is feeling better today. She has no dizziness or lightheadedness. She has been able to get up and walk to and from the restroom independently and feels comfortable with this. She is still hesitant about returning home because most of her symptoms occur with longer distances and she has not been up and walking enough. Discussed importance of increasing ambulation during admission and getting out of bed. She denies chest pain, palpitations, nausea, vomiting, fever, or chills. No urinary symptoms. She does endorse mild, chronic hematuria. Admits that she has not been drinking much water today. Otherwise, s
[2022-07-24] MEDS: DOCUSATE SODIUM 100 MG CAPSULE PO (20:45)
[2022-07-25] VITALS (7 sets, daily range): BP systolic 108–155; BP diastolic 44–82; PULSE 85–107; RESP 16–17; TEMP 36.2–36.6; O2SAT 100
[2022-07-25 05:35] LABS: Hematocrit 36.1 % (37.0-47.0); Hemoglobin 11.8 g/dL (12.0-15.0); Immature Platelet Fraction Pct 1.5 % (0.9-11.2); Mean Corpuscular HGB Conc 32.7 g/dl (32-36); Mean Corpuscular Hemoglobin 31.5 pg (26-34); Mean Corpuscular Volume 96.3 fl (80-100); Mean Platelet Volume 9.6 fl (7.4-10.4); Platelet Count Result 105 k/mm3 (150-375); Red Blood Count 3.75 M/mm3 (4.2-5.4); Red Cell Distribution Width 13.4 % (11.5-14.5); White Blood Count 4.2 K/mm3 (4.5-10.0)
[2022-07-25 05:46] LABS: Potassium 4.4 mmol/L (3.4-5.0)
[2022-07-25 05:50] LABS: Anion Gap 5 mmol/L (8-16); Blood Urea Nitrogen 26 mg/dL (7-17); Calcium 8.5 mg/dL (8.4-10.2); Carbon Dioxide 20 mmol/L (22-30); Chloride 112 mmol/L (98-107); Estimated CRCL calculation 20 ml/min; Estimated Glomerular Filt Rate 31; Glucose 86 mg/dL (65-110); Sodium 137 mmol/L (137-145)
[2022-07-25] MEDS: LEVOTHYROXINE SODIUM 50 MCG TABLET PO (06:13)
[2022-07-25] MEDS: PRAVASTATIN SODIUM 20 MG TABLET 80 MG PO (08:23)
[2022-07-25] MEDS: FAMOTIDINE 20 MG TABLET PO ×2 (08:24→20:02)
[2022-07-25] MEDS: CHOLECALCIFEROL 1,000 UNITS TABLET 2000 UNITS PO (08:24)
[2022-07-25] MEDS: buPROPion HCL SR (12 HR) 150 MG TAB PO ×2 (08:24→17:14)
[2022-07-25] MEDS: FERROUS SULFATE 324 MG TABLET PO ×2 (08:25→17:15)
[2022-07-25] MEDS: CEFDINIR 300 MG CAPSULE PO ×2 (11:23→20:02)
--- NOTE | 2022-07-25 13:16 | P.PNIM_ITS ---
Progress Note: A&P Assessment and Plan (1) Dizziness: Code(s): R42 - Dizziness and giddiness Status: Acute Assessment and Plan: Patient presented with complaints of dizziness upon standing ongoing for 2 days * suspect multifactorial etiology to include dehydration, orthostatic hypotension, and UTI * patient does have history of aortic stenosis and mitral regurgitation which also may be contributing * continue to monitor orthostatics * symptoms improving * consider repeat echocardiogram if worsening. Otherwise will refer pt for outpatient echo for monitoring * implement fall precautions (2) Orthostatic hypotension: Code(s): I95.1 - Orthostatic hypotension Status: Acute Assessment and Plan: likely contributing to dizziness as above * noted to have sharp decline in BP on presentation * continue to monitor orthostatics q.shift * yesterday evening with 30 point decline in systolic BP from sitting to standing. BP dropped to 106/61 * given ongoing symptoms and continued orthostasis with low BP, will begin low dose midodrine 2.5 mg TID * continue ABBEY hose * patient euvolemic and has been adequately rehydrated * hold home metoprolol tartrate and prn furosemide * monitor BP trends (3) Acute renal failure: Code(s): N17.9 - Acute kidney failure, unspecified Status: Acute Assessment and Plan: acute on chronic. Baseline creatinine around 1.2-1.4 * creatinine elevated to 2.4 on admission * continued improvement with IV fluids to 1.6 today * IV fluids discontinued on 07/23 as pt has been adequately rehydrated and is tolerating PO intake * may be related to recent Bactrim use. Bactrim has been discontinued * hold p.r.n. furosemide * monitor BMP (4) Acute UTI: Code(s): N39.0 - Urinary tract infection, site not specified Status: Acute Assessment and Plan: urinalysis abnormal on presentation. patient was being treated for outpatient UTI with Bactrim for approximately 4 days * urine culture with growth of 50-100k E coli * susceptible to ceftriaxone. Continue with p.o. cefdinir to complete a 7 day course (5) Staghorn renal calculus: Code(s): N20.0 - Calculus of kidney Status: Acute Assessment and Plan: known issue being managed by Urology * pt scheduled for outpatient ESWL on Sunday 07/30 * appreciate urology recommendations * per urology recommendations, planning to proceed with lithotripsy on 07/30 (6) CHF (congestive heart failure): Onset Date: ~08/01/21 Qualifiers: Heart failure chronicity: unspecified Heart failure type: unspecified Qualified Code(s): I50.9 - Heart failure, unspecified Code(s): I50.9 - Heart failure, unspecified Status: Resolved Assessment and Plan: Patient with history of chronic diastolic CHF * no evidence of volume overload at this time and patient tolerated rehydration * she is on prn furosemide at home which is being held at this time Subjective Date/time seen: 07/25/22 13:16 Interval history: date of service: 07/25/2022 Nelia Peterson is an 86-year-old female with a history of atrial fibrillation on chronic anticoagulation, CHF, CKD, hyperlipidemia, hypertension, hypothyroidism, kidney stones (being followed by Urology for staghorn calculus), and several other comorbidities who is seen in follow-up for dizziness and UTI. she feels okay today. She did have an episode of dizziness this morning while using the restroom. She st
--- NOTE | 2022-07-25 13:16 | PM.IMPN ---
Progress Note: A&P Assessment and Plan (1) Dizziness: Code(s): R42 - Dizziness and giddiness Status: Acute Assessment and Plan: Patient presented with complaints of dizziness upon standing ongoing for 2 days suspect multifactorial etiology to include dehydration, orthostatic hypotension, and UTI patient does have history of aortic stenosis and mitral regurgitation which also may be contributing continue to monitor orthostatics symptoms improving consider repeat echocardiogram if worsening. Otherwise will refer pt for outpatient echo for monitoring implement fall precautions (2) Orthostatic hypotension: Code(s): I95.1 - Orthostatic hypotension Status: Acute Assessment and Plan: likely contributing to dizziness as above noted to have sharp decline in BP on presentation continue to monitor orthostatics q.shift yesterday evening with 30 point decline in systolic BP from sitting to standing. BP dropped to 106/61 given ongoing symptoms and continued orthostasis with low BP, will begin low dose midodrine 2.5 mg TID continue ABBEY hose patient euvolemic and has been adequately rehydrated hold home metoprolol tartrate and prn furosemide monitor BP trends (3) Acute renal failure: Code(s): N17.9 - Acute kidney failure, unspecified Status: Acute Assessment and Plan: acute on chronic. Baseline creatinine around 1.2-1.4 creatinine elevated to 2.4 on admission continued improvement with IV fluids to 1.6 today IV fluids discontinued on 07/23 as pt has been adequately rehydrated and is tolerating PO intake may be related to recent Bactrim use. Bactrim has been discontinued hold p.r.n. furosemide monitor BMP (4) Acute UTI: Code(s): N39.0 - Urinary tract infection, site not specified Status: Acute Assessment and Plan: urinalysis abnormal on presentation. patient was being treated for outpatient UTI with Bactrim for approximately 4 days urine culture with growth of 50-100k E coli susceptible to ceftriaxone. Continue with p.o. cefdinir to complete a 7 day course (5) Staghorn renal calculus: Code(s): N20.0 - Calculus of kidney Status: Acute Assessment and Plan: known issue being managed by Urology pt scheduled for outpatient ESWL on Sunday 07/30 appreciate urology recommendations per urology recommendations, planning to proceed with lithotripsy on 07/30 (6) CHF (congestive heart failure): Onset Date: ~08/01/21 Qualifiers: Heart failure chronicity: unspecified Heart failure type: unspecified Qualified Code(s): I50.9 - Heart failure, unspecified Code(s): I50.9 - Heart failure, unspecified Status: Resolved Assessment and Plan: Patient with history of chronic diastolic CHF no evidence of volume overload at this time and patient tolerated rehydration she is on prn furosemide at home which is being held at this time Subjective Date/time seen: 07/25/22 13:16 Interval history: date of service: 07/25/2022 Nelia Peterson is an 86-year-old female with a history of atrial fibrillation on chronic anticoagulation, CHF, CKD, hyperlipidemia, hypertension, hypothyroidism, kidney stones (being followed by Urology for staghorn calculus), and several other comorbidities who is seen in follow-up for dizziness and UTI. she feels okay today. She did have an episode of dizziness this morning while using the restroom. She stated she felt the urge to have a bowel movement and got up out of bed pretty quickly. She felt that she stood up too fast and this caused her to become dizzy. Yesterday evening she did walk around the halls and felt like she tolerated this well. She did feel a little short of breath at the end but did not have any episodes of dizziness. Denies lightheadedness. States the dysuria has resolved, however she still notes some pressure a
[2022-07-25] MEDS: MIDODRINE HCL 2.5 MG TABLET PO (17:14)
[2022-07-25] MEDS: DOCUSATE SODIUM 100 MG CAPSULE PO (21:24)
[2022-07-26 04:52] LABS: Hematocrit 35.6 % (37.0-47.0); Hemoglobin 11.5 g/dL (12.0-15.0); Mean Corpuscular HGB Conc 32.3 g/dl (32-36); Mean Corpuscular Hemoglobin 31.3 pg (26-34); Mean Platelet Volume 9.5 fl (7.4-10.4); Platelet Count Result 108 k/mm3 (150-375); Red Blood Count 3.67 M/mm3 (4.2-5.4); Red Cell Distribution Width 13.4 % (11.5-14.5); White Blood Count 4.5 K/mm3 (4.5-10.0)
[2022-07-26 04:57] LABS: Anion Gap 4 mmol/L (8-16); Blood Urea Nitrogen 28 mg/dL (7-17); Calcium 8.6 mg/dL (8.4-10.2); Carbon Dioxide 20 mmol/L (22-30); Chloride 109 mmol/L (98-107); Estimated CRCL calculation 20 ml/min; Estimated Glomerular Filt Rate 31; Glucose 87 mg/dL (65-110); Sodium 133 mmol/L (137-145)
[2022-07-26 05:18] VITALS: BP 143/66; PULSE 100; RESP 17; TEMP 36.6; O2SAT 99
[2022-07-26] MEDS: LEVOTHYROXINE SODIUM 50 MCG TABLET PO (05:58)
[2022-07-26] MEDS: buPROPion HCL SR (12 HR) 150 MG TAB PO (08:54)
[2022-07-26] MEDS: MIDODRINE HCL 2.5 MG TABLET PO ×2 (08:54→13:28)
[2022-07-26] MEDS: FERROUS SULFATE 324 MG TABLET PO (08:54)
[2022-07-26] MEDS: PRAVASTATIN SODIUM 20 MG TABLET 80 MG PO (08:54)
[2022-07-26] MEDS: CHOLECALCIFEROL 1,000 UNITS TABLET 2000 UNITS PO (08:54)
[2022-07-26] MEDS: FAMOTIDINE 20 MG TABLET PO (08:54)
--- NOTE | 2022-07-26 10:18 | P.DS_ITS ---
DS: Admitting Diagnosis Discharge Date 07/26/2022 Admitting Diagnosis Dizziness DS: Discharge Diagnosis Discharge Diagnosis (1) Dizziness: Code(s): R42 - Dizziness and giddiness Status: Acute Assessment and Plan: Patient presented with complaints of dizziness upon standing ongoing for 2 days * suspect multifactorial etiology to include dehydration, orthostatic hypotension, and UTI * patient does have history of aortic stenosis and mitral regurgitation which is less likely to be contributing factor. Consider outpatient echocardiogram for monitoring * symptoms improved with rehydration and treatment for orthostatic hypotension * fall precautions implemented (2) Orthostatic hypotension: Code(s): I95.1 - Orthostatic hypotension Status: Acute Assessment and Plan: likely contributing to dizziness as above. Noted to have 40 point drop in systolic BP on initial orthostatics * pt was rehydrated with IV fluids * ABBEY hose placed * home metoprolol tartrate and prn furosemide held * persistent orthostasis despite above measures * low dose midodrine 2.5 mg TID initiated with improvement in BP and symptoms * encouraged to monitor BP at home and follow up with PCP in 1 week for review (3) Acute renal failure: Code(s): N17.9 - Acute kidney failure, unspecified Status: Acute Assessment and Plan: Acute on chronic. Baseline creatinine around 1.2-1.4 * creatinine elevated to 2.4 on admission * improved with rehydration * may have been exacerbated by recent Bactrim use which was discontinued * prn furosemide held * renal function improved. Creatinine 1.6 at time of discharge (4) Acute UTI: Code(s): N39.0 - Urinary tract infection, site not specified Status: Acute Assessment and Plan: Urinalysis abnormal on presentation. Patient was being treated for outpatient UTI with Bactrim for approximately 4 days * urine culture with growth of 50-100k E coli * received IV ceftriaxone initially and then transition to p.o. cefdinir which she will continue for a 7 day course (5) Staghorn renal calculus: Code(s): N20.0 - Calculus of kidney Status: Acute Assessment and Plan: Known issue being managed by Urology * Pt scheduled for outpatient ESWL on Sunday 07/30 * Patient was seen in consultation by Urology during admission. Intend to proceed with procedure * Home eliquis was held starting 07/25 per patients preoperative instructions (6) CHF (congestive heart failure): Onset Date: ~08/01/21 Qualifiers: Heart failure chronicity: unspecified Heart failure type: unspecified Qualified Code(s): I50.9 - Heart failure, unspecified Code(s): I50.9 - Heart failure, unspecified Status: Resolved Assessment and Plan: Patient with history of chronic diastolic CHF * No evidence of volume overload at this time and patient tolerated rehydration * She is on prn furosemide at home which was held due to orthostatic hypotension and acute kidney injury (7) Pancytopenia: Code(s): D61.818 - Other pancytopenia Status: Acute Assessment and Plan: Mild pancytopenia noted on labs.? Patient reports that she has been evaluated for this before and is a known, chronic issue.? * Labs improved with normal white count and increased platelet count. * Follow-up with PCP for continued monitoring DS: Summary Hospital Course Hospital Course: Date of admission: 07/21/2022 Date of discharge:
--- NOTE | 2022-07-26 10:18 | PM.DS ---
DS: Admitting Diagnosis Discharge Date 07/26/2022 Admitting Diagnosis Dizziness DS: Discharge Diagnosis Discharge Diagnosis (1) Dizziness: Code(s): R42 - Dizziness and giddiness Status: Acute Assessment and Plan: Patient presented with complaints of dizziness upon standing ongoing for 2 days suspect multifactorial etiology to include dehydration, orthostatic hypotension, and UTI patient does have history of aortic stenosis and mitral regurgitation which is less likely to be contributing factor. Consider outpatient echocardiogram for monitoring symptoms improved with rehydration and treatment for orthostatic hypotension fall precautions implemented (2) Orthostatic hypotension: Code(s): I95.1 - Orthostatic hypotension Status: Acute Assessment and Plan: likely contributing to dizziness as above. Noted to have 40 point drop in systolic BP on initial orthostatics pt was rehydrated with IV fluids ABBEY hose placed home metoprolol tartrate and prn furosemide held persistent orthostasis despite above measures low dose midodrine 2.5 mg TID initiated with improvement in BP and symptoms encouraged to monitor BP at home and follow up with PCP in 1 week for review (3) Acute renal failure: Code(s): N17.9 - Acute kidney failure, unspecified Status: Acute Assessment and Plan: Acute on chronic. Baseline creatinine around 1.2-1.4 creatinine elevated to 2.4 on admission improved with rehydration may have been exacerbated by recent Bactrim use which was discontinued prn furosemide held renal function improved. Creatinine 1.6 at time of discharge (4) Acute UTI: Code(s): N39.0 - Urinary tract infection, site not specified Status: Acute Assessment and Plan: Urinalysis abnormal on presentation. Patient was being treated for outpatient UTI with Bactrim for approximately 4 days urine culture with growth of 50-100k E coli received IV ceftriaxone initially and then transition to p.o. cefdinir which she will continue for a 7 day course (5) Staghorn renal calculus: Code(s): N20.0 - Calculus of kidney Status: Acute Assessment and Plan: Known issue being managed by Urology Pt scheduled for outpatient ESWL on Sunday 07/30 Patient was seen in consultation by Urology during admission. Intend to proceed with procedure Home eliquis was held starting 07/25 per patients preoperative instructions (6) CHF (congestive heart failure): Onset Date: ~08/01/21 Qualifiers: Heart failure chronicity: unspecified Heart failure type: unspecified Qualified Code(s): I50.9 - Heart failure, unspecified Code(s): I50.9 - Heart failure, unspecified Status: Resolved Assessment and Plan: Patient with history of chronic diastolic CHF No evidence of volume overload at this time and patient tolerated rehydration She is on prn furosemide at home which was held due to orthostatic hypotension and acute kidney injury (7) Pancytopenia: Code(s): D61.818 - Other pancytopenia Status: Acute Assessment and Plan: Mild pancytopenia noted on labs.? Patient reports that she has been evaluated for this before and is a known, chronic issue.? Labs improved with normal white count and increased platelet count. Follow-up with PCP for continued monitoring DS: Summary Hospital Course Hospital Course: Date of admission: 07/21/2022 Date of discharge: 07/26/2022 Nelia Peterson is an 86-year-old female with a history of atrial fibrillation on chronic anticoagulation, CHF, CKD, hyperlipidemia, hypertension, hypothyroidism, kidney stones (being followed by Urology for staghorn calculus), and several other comorbidities who presented to the emergency department on 07/21/2022 from home with dizziness upon standing worsening over the past 2 days. On presentation to the ED, her vital signs were stable,
[2022-07-26] MEDS: CEFDINIR 300 MG CAPSULE PO (10:46)
[2022-07-26 14:09] VITALS: BP 142/73; PULSE 96; RESP 12; TEMP 35.9; O2SAT 94
== END 2022-07-26 14:16 | disposition home or self-care (01) | DRG 312 ==
LOC: ANHED 20:07 → ANH2MED 23:32
PROVIDERS: Emergency Medicine; Admitting Provider Internal Medicine; Emergency Provider Emergency Medicine; PCP Internal Medicine; Visit Provider Physician Assistant
DX: I95.1 Orthostatic hypotension (principal); N39.0 Urinary tract infection, site not specified; N17.9 Acute kidney failure, unspecified; D61.818 Other pancytopenia; I13.0 Hypertensive heart and chronic kidney disease with heart failure and stage 1 through stage 4 chronic kidney disease, or unspecified chronic kidney disease; I50.32 Chronic diastolic (congestive) heart failure; B96.20 Unspecified Escherichia coli [E. coli] as the cause of diseases classified elsewhere; N18.9 Chronic kidney disease, unspecified; R42 Dizziness and giddiness; N20.0 Calculus of kidney; I48.91 Unspecified atrial fibrillation; E78.5 Hyperlipidemia, unspecified; E03.9 Hypothyroidism, unspecified; D63.8 Anemia in other chronic diseases classified elsewhere; Z20.822 Contact with and (suspected) exposure to COVID-19; I34.0 Nonrheumatic mitral (valve) insufficiency; I35.0 Nonrheumatic aortic (valve) stenosis; N13.9 Obstructive and reflux uropathy, unspecified; E86.0 Dehydration; I48.0 Paroxysmal atrial fibrillation; Z96.651 Presence of right artificial knee joint; Z98.49 Cataract extraction status, unspecified eye; Z87.442 Personal history of urinary calculi; Z90.710 Acquired absence of both cervix and uterus; Z90.722 Acquired absence of ovaries, bilateral; Z87.891 Personal history of nicotine dependence; Z79.01 Long term (current) use of anticoagulants
CPT/HCPCS: 36415; 71045; 74176; 80048; 80053; 81001; 81002; 82550; 82570; 83880; 84133; 84300; 84550; 85025; 85027; 85055; 87040; 87077; 87086; 87186; 87637; 93005; 96361; 96365; 96366; 99285; A9270; G0378; J0295; J7030

== ENCOUNTER 2022-07-27 12:06 | Outpatient (CLI) | payer MEDICARE, SELFPAY | END 2022-07-27 12:07 | disposition home or self-care (01) | LOC: ANHSURGERY 12:10 | PROVIDERS: PCP Internal Medicine; Visit Provider Urology | DX: Z01.818 Encounter for other preprocedural examination (principal); N20.0 Calculus of kidney | CPT/HCPCS: 87086 ==

== ENCOUNTER 2022-07-30 01:21 | Day surgery (SDC) | payer MEDICARE, SELFPAY ==
[2022-07-20 12:57] VITALS: BMI 25.0
--- NOTE | 2022-07-20 13:09 | PC.NURSE ---
PRE-OP INSTRUCTIONS, PLEASE READ CAREFULLY Report to the Outpatient Waiting Room, entrance under the green pavilion located off [facility], at time _0600_ on date _07/30/22_. Planned Procedure Time: _0730_. Time changes happen often and if your time is changed the preop area will call you the afternoon before. - You and your visitor will be asked to self-screen and do not enter if you have any COVID symptoms. - Only one visitor is requested with a max of two and NO children visitors are allowed at this time. - The patient visitor may be requested to leave or wait in car when not with patient due to distancing restrictions. - A mask is optional within the hospital at this time. Patients may have clear liquids (water, carbonated beverages, clear teas, apple juice) until 3 hours prior to surgery (0430 AM) with a maximum of 20 ounces. - No food from midnight until time of surgery Take the following medications with a SIP of water the morning of surgery: _BUPROPION, LEVOTHYROXINE, METOPROLOL & TRAMADOL IF NEEDED_ DO NOT STOP ANY OF YOUR OTHER PRESCRIPTION MEDICATIONS PRIOR TO SURGERY ?EXCEPT THE FOLLOWING Medications to discontinue __ELIQUIS PER DR. SCHRADER'S INSTRUCTIONS__ Date to take last dose Please no make-up, nail macedonian, hairspray, perfume, deodorant, or body powder the day of surgery. No jewelry (including any body piercings) or valuables the day of surgery, leave them at home. Please take a shower or bath the night before, or the morning of, surgery with an antibacterial soap. Wear comfortable, loose fitting clothing. - Jewelry must be removed prior to entering the operating room. Rings and piercings that are not removed may be cut off. - The hospital will not accept responsibility for valuables. - Please leave all valuables, including medications, at home the day of surgery. If you are going home after surgery, a licensed driver license technician must drive you home. - NO public transportation without another adult if you receive anesthesia. - We recommend that an adult stay with you for 24 hours following discharge. - We also recommend that you do not drive, make important decision, drink alcoholic beverages, or take any drugs that were not prescribed by your health care provider for at least 24 hours after your discharge time. Follow any additional instructions given to you from your surgeon. If you or anyone in your household have experienced Covid symptoms in the past week, please notify your surgeon or the nurse liaison at the phone number below for possible testing. Telephone instructions given to _PATIENT_and asked if any additional questions and then verbalized understanding. Patient advised to call surgeon office or pre surgery nurse liaison [phone] if any additional questions.
--- NOTE | 2022-07-28 10:43 | PM.HPGS ---
History of Present Illness History of Present Illness Consent: Risks, benefits, and alternatives have been discussed and questions answered. Patient agrees to proceed with procedure. 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 She has opted against intervention for the large right renal stone and we managed the left UPJ obstruction with a chronic stent. With attempted replacement of stent recently was encrusted, precluding removal. She presents for ESWL to the proximal coil of the left ureteral stent. she is aware of the risk of this including, but not limited to, adverse cardiopulmonary events, perinephric hematoma and difficulty in replacing the stent. Review of Systems Cardiovascular: Cardiovascular: Denies chest pain, Denies lightheadedness, Denies palpitations and Denies dyspnea Respiratory: Respiratory: Denies dyspnea Gastrointestinal: Gastrointestinal: Denies diarrhea, Denies nausea and Denies vomiting Genitourinary: Genitourinary: Denies hematuria and Denies dysuria Endocrine: Endocrine: Denies palpitations [facility] Past Medical History Medical History Abnormal urinalysis Acute renal failure Aortic stenosis mild Atrial fibrillation with rapid ventricular response Atrial fibrillation with RVR Cerebral aneurysm Status post coil embolization. CHF (congestive heart failure) (~08/01/21) EF 60-65% Chronic anemia Chronic kidney disease Current use of skilled nursing anticoagulation Degenerative disc disease Depression Diastolic congestive heart failure Dyslipidemia Endometriosis Hemorrhoids Histoplasmosis Hyperlipidemia Hypertension Hypothyroidism Intraoperative ureteral injury (07/2021) Kidney stones Including known right staghorn calculus. Mitral regurgitation mod to severe Nonspecific colitis Paroxysmal atrial fibrillation Pulmonary embolism Pulmonary hypertension mild Sepsis Surgical History Surgical History History of arthroplasty of right knee History of cataract extraction History of colonoscopy with polypectomy History of cystoscopy History of lumbar surgery History of tonsillectomy and adenoidectomy History of total hysterectomy with bilateral salpingo-oophorectomy (BSO) Status post coil embolization of cerebral aneurysm Family History Family History Mother , in her 70s Hypertension Father Hypertension Acute myocardial infarction Social History Social History Social History: Surrogate decision maker: susanna Rothman. Code status: Full code. Smoking packs per day: 0.5 Smoking cigarettes per day: 10.0 Years smoked: 15 Smoking pack-years: 7.50 Smoking status: Former smoker Tobacco type: cigarettes Second hand tobacco smoke exposure: No Smoking end date: 06/06/79 Alcohol intake: never Drinks per week: 1 Alcohol use details: 6 oz of wine. Substance use: never Substance use type: does not use Lack of Transportation: YES Lack of Food: Never True Current Housing: I Have Housing Concerned About Future Housing: No Difficulty Paying Gas/Electric Bills: No Difficulty Paying for Meds: No Currently Unemployed: No Education: Master's Degree or Higher Difficulty w/ Childcare or Family Care: No Living arrangements: alone Additional living arrangements comments: as of September 2020. She and her had 3 children, all whom are . Additional occupation/education comments: Retired. Gender identity (if verbalized by the patient): Female Sexual Orientation (if Verbalized by the Patient): Straight or Heterosexual
[2022-07-30] VITALS (8 sets, daily range): BP systolic 133–161; BP diastolic 83–103; PULSE 89–109; RESP 16–20; TEMP 36.2–36.6; O2SAT 100
--- NOTE | ~2022-07-30 | XR_ITS ---
Supine and upright views of the abdomen Clinical history: Lithotripsy COMPARISON: 02/23/2017 Findings: Bowel gas pattern is nonspecific. No evidence for obstruction or free air. Left ureteral st ent is in place. There is subtle amorphous calcification about the proximal pigtail of the left urete ral stent. Extensive right-sided staghorn calculus present. Multiple calcified splenic granulomas are present. Osseous structures are intact. Impression: Left ureteral stent. Subtle amorphous calcification surrounding the proximal pigtail of the stent. Extensive right-sided staghorn calculus. Calcified splenic granulomas. Reviewed, dictated and finalized at location . [employer] Impression: Left ureteral stent. Subtle amorphous calcification surrounding the proximal pi gtail of the stent. Extensive right-sided staghorn calculus. Calcified splenic granulomas.
--- NOTE | 2022-07-30 06:51 | WPDANESEPPF ---
Anes - Initial Pre Proc Eval Procedure: Operation Date: 07/30/22 07:30 Proposed Procedures p Left Extracorporeal Shock Wave Lithotripsy, - Nabil Shaikh MD s Cystoscopy, Left Stent Exchange - Nabil Shaikh MD Date/Time: 07/30/22 06:51 Surgeon: Nabil Shaikh MD Pre Op Diagnosis: left UPJ obstruction Patient Data Age: 86 Gender: F Height: 1.63 m Weight: 66 kg Allergies Allergy/AdvReac Type Severity Reaction Status Date / Time hydrocodone AdvReac Intermediate Nausea Verified 07/20/22 12:49 codeine AdvReac Mild Nausea Verified 07/20/22 12:49 heparin AdvReac Mild Nausea Verified 07/20/22 12:49 Home Medications Medication Instructions Recorded Confirmed Type bupropion HCl 150 mg tablet,12 hr 150 mg PO BID 11/19/19 07/22/22 History sustained-release cholecalciferol (vitamin D3) 50 50 mcg PO DAILY 11/19/19 07/22/22 History mcg (2,000 unit) capsule (Vitamin D3) levothyroxine 50 mcg tablet 50 mcg PO QAM 11/19/19 07/22/22 History pravastatin 80 mg tablet 80 mg PO DAILY 11/19/19 07/22/22 History apixaban 2.5 mg tablet (Eliquis) 2.5 mg PO Q12HR #60 tabs 07/24/21 07/22/22 Rx tramadol 50 mg tablet 50 mg PO Q6H PRN Pain 08/01/21 07/22/22 History ferrous sulfate 325 mg (65 mg 325 mg PO BID #60 tabs 08/06/21 07/22/22 Rx iron) tablet docusate sodium 100 mg tablet 100 mg PO DAILY PRN Constipation 08/12/21 07/22/22 History furosemide 20 mg tablet 20 mg PO PRN PRN edema 12/28/21 07/22/22 History metoprolol tartrate 50 mg tablet 75 mg PO BID 12/28/21 07/22/22 History cefdinir 300 mg capsule 300 mg PO Q12HR #6 caps 07/26/22 Rx midodrine 2.5 mg tablet 2.5 mg PO TID #60 tabs 07/26/22 Rx Patient hx anesthesia problems: none Family hx anesthesia problems: none Results Review: All pre-operative results and documents have been reviewed as part of the pre-operative evaluation. [facility] Past Medical History Medical History Abnormal urinalysis Acute renal failure Aortic stenosis mild Atrial fibrillation with rapid ventricular response Atrial fibrillation with RVR Cerebral aneurysm Status post coil embolization. CHF (congestive heart failure) (~08/01/21) EF 60-65% Chronic anemia Chronic kidney disease Current use of residential anticoagulation Degenerative disc disease Depression Diastolic congestive heart failure Dyslipidemia Endometriosis Hemorrhoids Histoplasmosis Hyperlipidemia Hypertension Hypothyroidism Intraoperative ureteral injury (07/2021) Kidney stones Including known right staghorn calculus. Mitral regurgitation mod to severe Nonspecific colitis Paroxysmal atrial fibrillation Pulmonary embolism Pulmonary hypertension mild Sepsis Surgical History Surgical History History of arthroplasty of right knee History of cataract extraction History of colonoscopy with polypectomy History of cystoscopy History of lumbar surgery History of tonsillectomy and adenoidectomy History of total hysterectomy with bilateral salpingo-oophorectomy (BSO) Status post coil embolization of cerebral aneurysm Family History Family History Mother , in her 70s Hypertension Father Hypertension Acute myocardial infarction Social History Social History Social History: Surrogate decision maker: Seth Peterson, son. Code status: Full code. Smoking packs per day: 0.5 Smoking cigarettes per day: 10.0 Years smoked: 15 Smoking pack-years: 7.50 Smoking status: Former smoker Tobacco type: cigarettes Second hand tobacco smoke exposure: No Smoking end date: 06/06/79 Alcohol intake: never Drinks per week: 1 Alcohol use details: 6 oz of wine. Substance use: never Substance use type: does not use Lack of Transportation: YES Lack
--- NOTE | 2022-07-30 06:54 | WPDHPUPDATE1 ---
History and Physical Update Update Date/Time: 07/30/22 06:54 History and Physical has been reviewed, including an updated exam of the patient. There are NO changes in the patient's condition. Risks, benefits, and alternatives have been discussed and questions answered. Patient agrees to proceed with procedure.
[2022-07-30] MEDS: LACTATED RINGERS 1,000 ML 30 ML IV CONT (07:00)
[2022-07-30] MEDS: ceFAZolin 2 GM/D5W 50 ML 2 GM/50 ML BAG IVPB (07:36)
[2022-07-30 07:43] LABS: Prothrombin Time 13.2 Seconds (11.1-14.7)
[2022-07-30 07:44] LABS: Partial Thromboplastin Time 28.1 SECONDS (22.3-36.8)
--- NOTE | 2022-07-30 08:24 | W.PM.PROC2 ---
Procedure Note - Detailed Date of Procedure 07/30/22 Pre-op Diagnosis Left UPJ obstruction, retained left ureteral stent Post-op Diagnosis Same Procedure Performed Cystoscopy, left retrograde pyelography, left ureteral stent replacement, left ESWL Surgeon Nabil Shaikh MD Anesthesia General Description of Procedure patient brought the op suite where she was prepped draped in routine sterile fashion while in a frog-leg position after the uneventful induction of a general LMA anesthetic. Cystoscopy is undertaken with a 19 F rigid cystoscope. Bladder mucosa is normal. She has retained left ureteral stent advanced a 0.035 in glidewire to the left pelvis. We then delivered 1560 shocks to the renal of her retained left stent. The stent with ease. I performed retrograde pyelogram it angiographic catheter ensure appropriate positioning 4 point plan to replace the stent in 4 months. Drains Yes
[2022-07-30] MEDS: fentaNYL CITRATE INJ (*CRX) 100 MCG/2 ML VIAL 25 MCG IV PUSH ×4 (08:40→09:08)
[2022-07-30] MEDS: LABETALOL HCL INJ 100 MG/20 ML VIAL 10 MG IV PUSH (09:00)
[2022-07-30] MEDS: ONDANSETRON INJ 4 MG/2 ML VIAL IV PUSH (09:03)
--- NOTE | 2022-07-30 10:22 | SUR.PHASEII ---
1010- kit given for straining urine and explained to pt and friend.
== END 2022-07-30 10:29 | disposition home or self-care (01) ==
PROVIDERS: PCP Internal Medicine; Visit Provider Urology
PROC: (CPT 50590; principal; 2022-07-30 07:30)
PROC: (CPT 52352; 2022-07-30 07:30)
DX: N13.8 Other obstructive and reflux uropathy (principal); I48.0 Paroxysmal atrial fibrillation; I13.0 Hypertensive heart and chronic kidney disease with heart failure and stage 1 through stage 4 chronic kidney disease, or unspecified chronic kidney disease; I50.30 Unspecified diastolic (congestive) heart failure; N18.9 Chronic kidney disease, unspecified; E78.5 Hyperlipidemia, unspecified; E03.9 Hypothyroidism, unspecified; D64.9 Anemia, unspecified; F32.A Depression, unspecified; Z86.711 Personal history of pulmonary embolism; Z86.73 Personal history of transient ischemic attack (TIA), and cerebral infarction without residual deficits; Z79.01 Long term (current) use of anticoagulants; Z87.891 Personal history of nicotine dependence
CPT/HCPCS: 52332; 50590; 36415; 74018; 85610; 85730; 87086; C1758; C1769; C2617; J0690; J1100; J2250; J2405; J2704; J3010; J7030; J7120

== ENCOUNTER 2022-08-10 02:54 | Emergency (ER) | payer MEDICARE, SELFPAY ==
--- NOTE | ~2022-08-10 | XR_ITS ---
EXAMINATION: XR chest 2V DATE: 08/10/2022 03:34 INDICATION: Shortness of breath. TECHNIQUE: Frontal and lateral views of the chest were obtained. COMPARISON: CT abdomen and pelvis 07/21/2022, chest single view 07/21/2022 FINDINGS: Calcified pulmonary nodules and calcified hilar and mediastinal lymph nodes are consistent with old granulomatous disease. There is mild atelectasis at the lung bases. There is a small left pl eural effusion. No pneumothorax. The heart size is normal. IMPRESSION: 1. Mild atelectasis at the lung bases. 2. Small left pleural effusion. Reviewed, dictated and finalized at location [facility]
--- NOTE | 2022-08-10 02:56 | ECG_ITS ---
Measurements Intervals [place] Rate: 55 P: 81 [place]: 206 QRS: 63 QRSD: 86 T: 64 QT: 412 QTc: 397 Interpretive Statements SINUS BRADYCARDIA WITH SINUS ARRHYTHMIA ANTEROSEPTAL INFARCT, AGE INDETERMINATE ABNORMAL ECG COMPARED TO ECG 07/21/2022 17:29:16 SINUS BRADYCARDIA NOW PRESENT Electronically Signed On 08-10-2022 6:54:56 CHANGE CONTROL ANALYST by Dylon Kumari D.O.
[2022-08-10 03:16] LABS: Basophils Percent Auto 0.3 % (0.2-1.2); Eosinophils Absolute Auto 0.2 K/mm3 (0-0.3); Eosinophils Percent Auto 1.6 % (0-4.4); Hematocrit 39.4 % (37.0-47.0); Hemoglobin 12.5 g/dL (12.0-15.0); Immature Granulocyte Absolute 0.02 K/mm3 (0.00-0.031); Immature Granulocyte Percent A 0.2 % (0-0.5); Immature Platelet Fraction Pct 1.8 % (0.9-11.2); Lymphocytes Absolute Auto 1.29 K/mm3 (0.9-3.2); Lymphocytes Percent Auto 13.6 % (18.3-44.2); Mean Corpuscular HGB Conc 31.7 g/dl (32-36); Mean Corpuscular Volume 97.8 fl (80-100); Mean Platelet Volume 9.6 fl (7.4-10.4); Monocytes Absolute Auto 0.8 K/mm3 (0.1-0.6); Monocytes Percent Auto 8.3 % (2.6-8.5); Neutrophils Absolute Auto 7.2 K/mm3 (1.3-6.7); Platelet Count Result 134 k/mm3 (150-375); Red Blood Count 4.03 M/mm3 (4.2-5.4); Red Cell Distribution Width 13.9 % (11.5-14.5); White Blood Count 9.5 K/mm3 (4.5-10.0)
[2022-08-10 03:17] VITALS: BP 186/51; PULSE 63; RESP 20; TEMP 36.6; O2SAT 99
[2022-08-10 03:26] LABS: Alanine Aminotransferase 21 U/L (6-35); Albumin Level 3.9 g/dL (3.5-5.1); Alkaline Phosphatase 71 U/L (38-126); Anion Gap 6 mmol/L (8-16); Aspartate Amino Transferase 36 U/L (14-36); Bilirubin,Total 0.7 mg/dL (0.2-1.3); Blood Urea Nitrogen 25 mg/dL (7-17); Calcium 8.8 mg/dL (8.4-10.2); Carbon Dioxide 23 mmol/L (22-30); Chloride 111 mmol/L (98-107); Estimated CRCL calculation 19 ml/min; Estimated Glomerular Filt Rate 29; Glucose 96 mg/dL (65-110); Potassium 4.6 mmol/L (3.4-5.0); Sodium 140 mmol/L (137-145)
[2022-08-10 04:19] VITALS: BP 180/67; PULSE 63; RESP 16; O2SAT 97
[2022-08-10 05:46] VITALS: BP 156/65; PULSE 66; RESP 17; O2SAT 97
[2022-08-10 06:18] VITALS: O2SAT 94
[2022-08-10 08:15] LABS: NT Pro B Type Natriuretic Pept 6620 pg/mL (19.9-100); Troponin I < 0.012 ng/mL (0.000-0.034)
--- NOTE | 2022-08-10 08:49 | ED.SOB ---
HPI - SOB/Dyspnea General Chief Complaint: Shortness of Breath/Dyspnea Stated Complaint: sob Time Seen by Provider: 08/10/22 07:09 History of Present Illness HPI Narrative: Pt says she was lying on her side and heard a rattle in her chest and became anxious and SOB. Pt says she lives alone and was worried it could be something serious. Pt denies CP. Pt has a history of borderline CHF and has lasix prescribed but does not take it. Pt has no SOB or CP now. Pt says it resolved while waiting to be seen in ER. Related Data Home Medications Medication Instructions Recorded Confirmed bupropion HCl 150 mg tablet,12 hr 150 mg PO BID 11/19/19 07/30/22 sustained-release cholecalciferol (vitamin D3) 50 50 mcg PO DAILY 11/19/19 07/30/22 mcg (2,000 unit) capsule (Vitamin D3) levothyroxine 50 mcg tablet 50 mcg PO QAM 11/19/19 07/30/22 pravastatin 80 mg tablet 80 mg PO DAILY 11/19/19 07/30/22 tramadol 50 mg tablet 50 mg PO Q6H PRN Pain 08/01/21 07/30/22 docusate sodium 100 mg tablet 100 mg PO DAILY PRN Constipation 08/12/21 07/30/22 furosemide 20 mg tablet 20 mg PO PRN PRN edema 12/28/21 07/30/22 metoprolol tartrate 50 mg tablet 75 mg PO BID 12/28/21 07/30/22 Allergies Allergy/AdvReac Type Severity Reaction Status Date / Time hydrocodone AdvReac Intermediate Nausea Verified 08/10/22 05:05 codeine AdvReac Mild Nausea Verified 08/10/22 05:05 heparin AdvReac Mild Nausea Verified 08/10/22 05:05 Review of Systems Review of Systems: All systems reviewed & are unremarkable except as noted in HPI and below PMFSH Past Medical History Medical History Abnormal urinalysis Acute renal failure Aortic stenosis mild Atrial fibrillation with rapid ventricular response Atrial fibrillation with RVR Cerebral aneurysm Status post coil embolization. 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 Mitral regurgitation mod to severe Nonspecific colitis Paroxysmal atrial fibrillation Pulmonary embolism Pulmonary hypertension mild Sepsis Surgical History Surgical History History of arthroplasty of right knee History of cataract extraction History of colonoscopy with polypectomy History of cystoscopy History of lumbar surgery History of tonsillectomy and adenoidectomy History of total hysterectomy with bilateral salpingo-oophorectomy (BSO) Status post coil embolization of cerebral aneurysm Family History Family History Mother , in her 70s Hypertension Father Hypertension Acute myocardial infarction Social History Social History Social History: Surrogate decision maker: susanna Rothman. Code status: Full code. Smoking packs per day: 0.5 Smoking cigarettes per day: 10.0 Years smoked: 15 Smoking pack-years: 7.50 Smoking status: Former smoker Tobacco type: cigarettes Second hand tobacco smoke exposure: No Smoking end date: 06/06/79 Alcohol intake: never Drinks per week: 1 Alcohol use details: 6 oz of wine. Substance use: never Substance use type: does not use Lack of Transportation: YES Lack of Food: Never True Current Housing: I Have Housing Concerned About Future Housing: No Difficulty Paying Gas/Electric Bills: No Difficulty Paying for Meds: No Currently Unemployed: No Education: Master's Degree or Higher Difficulty w/ Childcare or Family Care: No Living arrangements: alone
[2022-08-10] MEDS: FUROSEMIDE 20 MG TABLET PO (10:01)
[2022-08-10 10:02] VITALS: BP 157/60; PULSE 57; RESP 16; TEMP 36.4; O2SAT 97
[2022-08-10 10:43] VITALS: BP 163/58; PULSE 58; RESP 16; TEMP 37.1; O2SAT 96
== END 2022-08-10 10:51 | disposition home or self-care (01) ==
PROVIDERS: Emergency Medicine; Emergency Provider Emergency Medicine; PCP Internal Medicine
DX: R06.00 Dyspnea, unspecified (principal); I48.0 Paroxysmal atrial fibrillation; I13.0 Hypertensive heart and chronic kidney disease with heart failure and stage 1 through stage 4 chronic kidney disease, or unspecified chronic kidney disease; N18.9 Chronic kidney disease, unspecified; I50.30 Unspecified diastolic (congestive) heart failure; I08.0 Rheumatic disorders of both mitral and aortic valves; I27.20 Pulmonary hypertension, unspecified; E78.5 Hyperlipidemia, unspecified; E03.9 Hypothyroidism, unspecified; N80.9 Endometriosis, unspecified; F32.A Depression, unspecified; Z96.651 Presence of right artificial knee joint; Z86.711 Personal history of pulmonary embolism; Z87.442 Personal history of urinary calculi; Z87.891 Personal history of nicotine dependence; Z98.49 Cataract extraction status, unspecified eye; Z90.710 Acquired absence of both cervix and uterus; Z90.722 Acquired absence of ovaries, bilateral; Z90.79 Acquired absence of other genital organ(s); Z79.01 Long term (current) use of anticoagulants; R00.1 Bradycardia, unspecified; R94.31 Abnormal electrocardiogram [ECG] [EKG]
CPT/HCPCS: 36415; 71046; 80053; 83880; 84484; 85025; 85055; 93005; 99284; A9270

== ENCOUNTER 2022-09-12 10:48 | Inpatient (IN) | payer MEDICARE, SELFPAY ==
[2022-09-12] VITALS (10 sets, daily range): BP systolic 154–214; BP diastolic 46–89; PULSE 40–65; RESP 15–21; TEMP 36.2–36.5; O2SAT 95–100
--- NOTE | ~2022-09-12 | XR_ITS ---
EXAMINATION: XR chest 1V portable INDICATION: Temporary pacemaker insertion TECHNIQUE: Portable AP chest at 1746 hours COMPARISON: 09/12/2022 FINDINGS: A single pacemaker lead enters the heart through the inferior vena cava and ends with its l ead in the expected location of the right ventricle. The lungs are free of acute opacities. No pleura l effusion or pneumothorax. The cardiomediastinal silhouette is stable. Calcified pulmonary nodules a nd calcified bilateral hilar and mediastinal lymph nodes are consistent with old granulomatous diseas e. IMPRESSION: 1. Pacemaker lead entering the heart through the inferior vena cava and ending in the expected locati on of the right ventricle. Reviewed, dictated and finalized at location F. IMPRESSION: 1. Pacemaker lead entering the heart through the inferior vena cava and ending in the expected location of the right ventricle.
--- NOTE | ~2022-09-12 | XR_ITS ---
XR abdomen/kub 1V 09/22/2022 18:00 Indication: Constipation Procedure: KUB Comparison: 07/30/2022 Findings: There is a staghorn calculus in the right kidney. There is a left internal ureteral stent. There are possible left renal stones. Moderate colonic fecal loading. Nonobstructive bowel gas patter n. Bibasilar atelectasis with small pleural effusions. There is evidence for chronic granulomatous di sease. Impression: 1: Nonobstructive bowel gas pattern with moderate colonic fecal loading. 2: Staghorn right renal calculus. Possible left nephrolithiasis. 3: Small bilateral pleural effusions with underlying compressive atelectasis. Reviewed, dictated and finalized at location A. Impression: 1: Nonobstructive bowel gas pattern with moderate colonic fecal loading. 2: Staghorn right renal calculus. Possible left nephrolithiasis. 3: Small bilateral pleural effusions with underlying compressive atelectasis.
--- NOTE | ~2022-09-12 | XR_ITS ---
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 Removal of temporary pacemaker joy ce placed via the inferior vena cava since earlier today. Cardiomegaly. Aortic calcification. There is increased retrocardiac density on left consistent with left lower lobe atelectasis and/or co nsolidation. Is mild left pleural effusion. There is mild infiltrate or atelectasis at the right lung base. The lungs appear moderately hyperinflated. Diffuse osteopenia. IMPRESSION: hedis abstractor device overlying the lower left chest Cardiomegaly, aortic atherosclerosis Lower lung infiltrate or atelectasis, left greater than right and small left pleural effusion Reviewed, dictated and finalized at location B. IMPRESSION: hedis abstractor device overlying the lower left chest Cardiomegaly, aortic atherosclerosis Lower lung infiltrate or atelectasis, left greater than right and small left pl eural effusion
--- NOTE | ~2022-09-12 | XR_ITS ---
XR chest 2V DATE: 09/12/2022 11:24 INDICATION: Shortness of breath, dizziness, atrial fibrillation. He flashes all over the body. TECHNIQUE: PA and lateral views 08/10/2022 COMPARISON: PA and lateral views FINDINGS: Bilateral hyperinflation, consistent with COPD. There is old pulmonary granulomatous diseas e including numerous calcified pulmonary granulomas, calcified hilar and mediastinal lymph nodes. Heart size is upper limits of normal. There is aortic calcification. No hilar or mediastinal enlargem ent. No pulmonary infiltrate or consolidation, pleural effusion or pulmonary vascular congestion or pneumo thorax. Osteopenia. IMPRESSION: COPD Aortic atherosclerosis Old pulmonary granulomatous disease Resolution of mild atelectasis at the lung bases small left pleural effusion since 08/10/2022 Reviewed, dictated and finalized at location A. IMPRESSION: COPD Aortic atherosclerosis Old pulmonary granulomatous disease Resolution of mild atelectasis at the lung bases small left pleural effusion si nce 08/10/2022
--- NOTE | ~2022-09-12 | XR_ITS ---
Portable chest x-ray Comparison: 09/16/2022 Clinical History: Fever Findings: Probable small bilateral pleural effusions are present. No definite consolidation or pneum othorax. Cardiomediastinal silhouette is stable. Bones and soft tissues are unremarkable. Impression: Probable minimal bilateral pleural effusions. Reviewed, dictated and finalized at [facility]. Impression: Probable minimal bilateral pleural effusions.
--- NOTE | ~2022-09-12 | CT_ITS ---
EXAMINATION: CT cervical spine wo con DATE: 09/18/2022 18:08 INDICATION: Right shoulder and arm pain. TECHNIQUE: Computed tomography (CT) of the cervical spine was performed without intravenous contrast. Automated exposure control and iterative reconstruction technique were employed. The dose-length pro duct was 160.48 mGy-cm. COMPARISON: None FINDINGS: 9 degrees cervicothoracic levocurvature. Straightening of the normal cervical lordosis. Chronic appea ring T1 compression fracture with 20% anterior vertebral body height loss which appears new since [facility] CT dated 12/11/2014. Cervical vertebral body heights are normal. No acute fracture. Severe disc heig ht loss with degenerative endplate changes at C4-C5 and C5-C6. Moderate disc height loss at C3-C4 and C6-C7. Atherosclerotic calcification at the bilateral carotid bulbs. Multinodular goiter Cervical so ft tissues are otherwise unremarkable. Mild biapical pleural-parenchymal scarring. The following disc levels are specifically discussed: C2-C3: There is mild bilateral uncovertebral joint osteoarthritis. There is moderate right and severe left facet joint osteoarthritis. There is no neural foraminal stenosis. There is no central canal st enosis. C3-C4: Small posterior disc osteophyte complex. There is moderate to severe bilateral uncovertebral j oint osteoarthritis. There is severe bilateral facet joint osteoarthritis. There is mild bilateral ne ural foraminal stenosis. There is mild central canal stenosis. C4-C5: Posterior disc osteophyte complex. There is severe bilateral uncovertebral joint osteoarthriti s. There is mild right and moderate to severe left facet joint osteoarthritis. There is mild left and moderate right neural foraminal stenosis. There is mild central canal stenosis. C5-C6: Disc osteophyte complex. There is severe left and moderate to severe right uncovertebral joint osteoarthritis. There is mild left and moderate right facet joint osteoarthritis. There is mild bila teral neural foraminal stenosis. There is mild central canal stenosis. C6-C7: Disc is mildly bulging. There is moderate left and severe right uncovertebral joint osteoarthr itis. There is mild left and moderate right facet joint osteoarthritis. There is mild bilateral neura l foraminal stenosis. There is mild central canal stenosis. C7-T1: There is mild bilateral uncovertebral joint osteoarthritis. There is moderate left and severe right facet joint osteoarthritis. There is mild right neural foraminal stenosis. There is no central canal stenosis. IMPRESSION: 1. Severe cervical spondylosis. No acute osseous abnormality. 2. Chronic appearing T11 compression fracture with 20% anterior vertebral body height loss, new since 2014. 2. Multinodular goiter. Consider thyroid ultrasound for risk stratification. Reviewed, dictated and finalized at location A.
--- NOTE | ~2022-09-12 | CT_ITS ---
EXAMINATION: CT shoulder RT wo con DATE: 09/18/2022 18:08 INDICATION: Right shoulder and arm pain TECHNIQUE: High resolution computed tomography (CT) of the right shoulder was performed without intra venous contrast. Additional sagittal and coronal reconstructions were performed. Automated exposure c ontrol and iterative reconstruction technique were employed. The dose-length product was 123.80 mGy-c m. COMPARISON: None FINDINGS: Bone alignment is normal. No fracture. Moderate osteoarthritis at the right acromioclavicular joint a nd mild osteoarthritis at the right glenohumeral joint. There are small juxta articular erosions with sclerotic margins and overhanging edges along both sides of the acromioclavicular joint which could be seen with gout or other crystalline arthropathy. Additional small erosions along the intertubercul ar groove and immediately adjacent lesser and greater tuberosities the proximal right humerus. No antonella nt effusion. No asymmetric atrophy of the musculature of the right shoulder girdle. Small right pleur al effusion. Multiple small calcified pulmonary nodules in the visualized right mid and upper lung wh ich along with calcified right hilar and mediastinal lymph nodes are consistent with old granulomatou s disease. IMPRESSION: 1. 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 2. Several small juxta articular erosions at the right acromioclavicular joint and additional small e rosions at the intertubercular groove and immediately adjacent lesser and greater tuberosities. These could be degenerative in etiology but location and appearance also suggest possibility of gout or ot her crystal arthropathy. Reviewed, dictated and finalized at location A. IMPRESSION: 1. 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 2. Several small juxta articular erosions at the right acromioclavicular joint and additional small erosions at the intertubercular groove and immediately adj acent lesser and greater tuberosities. These could be degenerative in etiology but location and appearance also suggest possibility of gout or other crystal a rthropathy.
--- NOTE | 2022-09-12 11:01 | ECG_ITS ---
Measurements Intervals [place] Rate: 44 P: 65 [place]: 205 QRS: 3 QRSD: 90 T: 44 QT: 450 QTc: 386 Interpretive Statements SINUS BRADYCARDIA WITH FIRST-DEGREE AV BLOCK NONSPECIFIC ST ABNORMALITY ANTEROSEPTAL INFARCTION, AGE INDETERMINATE ABNORMAL ECG COMPARED TO ECG 08/10/2022 03:11:30 NO SIGNIFICANT CHANGES Electronically Signed On 09-12-2022 13:56:56 CDT by Jeramy Kendall M.D.
--- NOTE | 2022-09-12 11:06 | ED.ARRPALP ---
HPI - Arrhythmia/Palpitations General Chief Complaint: Arrhythmia/Palpitations <ALESSIA Riggs Last Filed: 09/12/22 18:47> Stated Complaint: DIZZY/ AFIB <ALESSIA Riggs Last Filed: 09/12/22 18:47> Time Seen by Provider: 09/12/22 11:01 <ALESSIA Riggs Last Filed: 09/12/22 18:47> Source: patient <ALESSIA Riggs Last Filed: 09/12/22 18:47> Mode of arrival: EMS <ALESSIA Riggs Last Filed: 09/12/22 18:47> Limitations: no limitations <ALESSIA Riggs Last Filed: 09/12/22 18:47> History of Present Illness HPI narrative: Patient is an 87 y/o female who presents to the ED via EMS with c/o dizziness. Patient reports having palpitations throughout the day today. She states she felt her heart beating very fast. She does note a history of paroxysmal atrial fibrillation, blood clots. Sees Dr. Kumar. She is currently on Eliquis 2.5 mg twice daily. She assumed she was going in and out of A-fib and did not think much of it. She began having episodes of diaphoresis, followed by dizziness and feeling as though her heart was going to stop. She reported having several episodes of this dizziness/diaphoresis this morning, which prompted her to call EMS. She states episodes lasted a few minutes at a time before resolving. Per EMS report, patient reported in the ED that she was about to have one of her dizziness episodes, at which time her heart rate was noted to drop into the 30s. Patient was presyncopal but did not lose consciousness. She did feel nauseous and short of breath with these episodes, but denied chest pain. She states otherwise she has been feeling in her normal state of health recently. Denies any recent cough or cold symptoms, fevers, abdominal pain, vomiting, BLE pain or swelling. <ALESSIA Riggs Last Filed: 09/12/22 18:47> Related Data Home Medications: Home Medications Medication Instructions Recorded Confirmed bupropion HCl 150 mg tablet,12 hr 150 mg PO BID 11/19/19 09/12/22 sustained-release cholecalciferol (vitamin D3) 50 50 mcg PO DAILY 11/19/19 09/12/22 mcg (2,000 unit) capsule (Vitamin D3) levothyroxine 50 mcg tablet 50 mcg PO QAM 11/19/19 09/12/22 pravastatin 80 mg tablet 80 mg PO DAILY 11/19/19 09/12/22 metoprolol tartrate 50 mg tablet 50 mg PO BID 12/28/21 09/12/22 nitrofurantoin 100 mg PO DAILY 09/12/22 09/12/22 monohydrate/macrocrystals 100 mg capsule <Atiya Mays PA-C - Last Filed: 09/12/22 18:47> Allergies/Adverse Reactions: Allergies Allergy/AdvReac Type Severity Reaction Status Date / Time hydrocodone AdvReac Intermediate Nausea Verified 09/12/22 18:00 codeine AdvReac Mild Nausea Verified 09/12/22 18:00 heparin AdvReac Mild Nausea Verified 09/12/22 18:00 <Atiya Mays PA-C - Last Filed: 09/12/22 18:47> Review of Systems Review of Systems: CONSTITUTIONAL: See HPI. EYES: Denies visual changes. ENT: Denies rhinorrhea, congestion, sore throat. CARDIOVASCULAR: See HPI. RESPIRATORY: See HPI. GASTROINTESTINAL: See HPI. GENITOURINARY: Denies dysuria or hematuria. SKIN: Denies rash or itching. MUSCULOSKELETAL: Denies back pain, joint pain, or myalgia. NEUROLOGIC: See HPI. <Atiya Mays PA-C - Last Filed: 09/12/22 18:47> All systems reviewed & are unremarkable except as noted in HPI and below <Atiya Mays PA-C - Last Filed: 09/12/22 18:47> [facility] Past Medical History Medical History: Medical History Cerebral aneurysm Status post coil embolization. 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 Hemorrhoids Histoplasmosis Hyperlipid
[2022-09-12 11:57] LABS: Basophils Percent Auto 0.7 % (0.2-1.2); Eosinophils Absolute Auto 0.2 K/mm3 (0-0.3); Eosinophils Percent Auto 3.5 % (0-4.4); Hematocrit 40.6 % (37.0-47.0); Immature Granulocyte Absolute 0.01 K/mm3 (0.00-0.031); Immature Granulocyte Percent A 0.2 % (0-0.5); Immature Platelet Fraction Pct 2.5 % (0.9-11.2); Lymphocytes Absolute Auto 0.81 K/mm3 (0.9-3.2); Lymphocytes Percent Auto 17.9 % (18.3-44.2); Mean Corpuscular Hemoglobin 31.2 pg (26-34); Mean Corpuscular Volume 97.4 fl (80-100); Mean Platelet Volume 9.6 fl (7.4-10.4); Monocytes Absolute Auto 0.4 K/mm3 (0.1-0.6); Monocytes Percent Auto 9.5 % (2.6-8.5); Neutrophils Absolute Auto 3.1 K/mm3 (1.3-6.7); Neutrophils Percent Auto 68.2 % (45.5-73.1); Platelet Count Result 127 k/mm3 (150-375); Red Blood Count 4.17 M/mm3 (4.2-5.4); White Blood Count 4.5 K/mm3 (4.5-10.0)
[2022-09-12 12:06] LABS: INR 1.1; Prothrombin Time 13.9 Seconds (11.1-14.7)
[2022-09-12 12:07] LABS: Partial Thromboplastin Time 31.1 SECONDS (22.3-36.8)
[2022-09-12 12:08] LABS: Alanine Aminotransferase 15 U/L (6-35); Albumin Level 4.1 g/dL (3.5-5.1); Alkaline Phosphatase 82 U/L (38-126); Anion Gap 6 mmol/L (8-16); Aspartate Amino Transferase 31 U/L (14-36); Bilirubin,Total 0.7 mg/dL (0.2-1.3); Blood Urea Nitrogen 29 mg/dL (7-17); Calcium 9.2 mg/dL (8.4-10.2); Carbon Dioxide 27 mmol/L (22-30); Chloride 106 mmol/L (98-107); Estimated Glomerular Filt Rate 27; Glucose 80 mg/dL (65-110); Potassium 4.4 mmol/L (3.4-5.0); Sodium 139 mmol/L (137-145)
[2022-09-12 12:17] LABS: Magnesium 2.2 mg/dL (1.6-2.3)
[2022-09-12 12:19] LABS: NT Pro B Type Natriuretic Pept 4490 pg/mL (19.9-100); Troponin I < 0.012 ng/mL (0.000-0.034)
[2022-09-12 12:35] LABS: D Dimer 0.55 ug/mL (<0.48)
[2022-09-12 13:57] LABS: Appearance Urine Cloudy (Clear); Bacteria Urine None Seen /hpf; Bilirubin Urine Negative (Negative); Blood Urine 2+ (Negative); Color Urine Yellow (Yellow); Glucose Urine UA Negative (Negative); Ketones Urine Negative (Negative); Leukocyte Esterase Ur 3+ LEU/UL (Negative); Nitrate Urine Negative (Negative); Non Pathogenic Casts 0-2; Protein Urine 1+ mg/dL (Negative); Specific Grav Ur 1.009 (1.001-1.035); Squamous Epithelial Cell Urine None seen /hpf (Few); Urobilinogen Urine 0.2 mg/dL (<2.0); WBC Urine >100 /hpf
[2022-09-12 13:58] LABS: Add Urine Microscopic? YES
[2022-09-12 14:23] LABS: Troponin I < 0.012 ng/mL (0.000-0.034)
--- NOTE | 2022-09-12 15:00 | PC.NURSE ---
This rn reported bp of 190/46 and pts complaint of headache to provider. No new orders at this time.
--- NOTE | 2022-09-12 16:36 | PC.NURSE ---
Pt requests to eat, has orders for NPO, per Hospitalist [place], this is meant to be NPO after midnight and pt may have a dinner tray. This RN called dietary and ordered a dinner tray (heart healthy) to be sent to room upstairs.
--- NOTE | 2022-09-12 17:00 | PM.IMHP ---
H&P: HPI History of Present Illness Date/Time: 09/12/22 17:00 Chief Complaint: Dizziness. Narrative: This is a very pleasant 87-year-old female with paroxysmal atrial fibrillation on chronic anticoagulation, heart failure with preserved ejection fraction, hypertension, hypothyroidism, chronic kidney disease, anemia, and other comorbidities who presented to the emergency department via EMS from home for evaluation of dizziness. Patient provides the following history. She was in her usual state of health when she got up this morning and not long prior to arrival, simply while sitting down in a chair, she developed sudden onset of palpitations, dizziness, and a warm feeling throughout her body. She called 911 and on arrival to the emergency department she was found to be in atrial fibrillation with rates ranging between 30 and 120. Without intervention her heart rate did slow down and she has been persistently bradycardic since that time. Blood pressures have been stable and in fact they have been running anywhere from the 150s to 180s systolic. She has been on metoprolol 75 mg b.i.d.; she did take that this morning. She denies syncope, chest pain, pleuritic pain, shortness a breath, nausea, vomiting, and sweats. No recent cold or flu symptoms. She denies vomiting, diarrhea, and dysuria (currently on Macrobid for recent UTI, symptoms have improved). Review of Systems Review of Systems: Twelve systems were reviewed and are negative except for as per HPI. FORMERLY [facility] Past Medical History Medical History Cerebral aneurysm Status post coil embolization. 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 Hemorrhoids Histoplasmosis Hyperlipidemia Hypertension Hypothyroidism Intraoperative ureteral injury (07/2021) Kidney stones Including known right staghorn calculus. Mild aortic stenosis Mild pulmonary hypertension Mitral regurgitation mod to severe Moderate mitral regurgitation Nonspecific colitis Paroxysmal atrial fibrillation Pulmonary embolism Surgical History Surgical History History of arthroplasty of right knee History of cataract extraction History of colonoscopy with polypectomy History of cystoscopy History of lumbar surgery History of tonsillectomy and adenoidectomy History of total hysterectomy with bilateral salpingo-oophorectomy (BSO) Status post coil embolization of cerebral aneurysm Family History Family History Mother , in her 70s Hypertension Father Hypertension Acute myocardial infarction Social History Social History Social History: Surrogate decision maker: susanna Rothman. Code status: Full code. Smoking packs per day: 0.5 Smoking cigarettes per day: 10.0 Years smoked: 15 Smoking pack-years: 7.50 Smoking status: Never smoker Tobacco type: cigarettes Second hand tobacco smoke exposure: No Smoking end date: 06/06/79 Alcohol intake: never Drinks per week: 1 Alcohol use details: 6 oz of wine. Substance use: never Substance use type: does not use Lack of Transportation: No Lack of Food: Never True Current Housing: I Have Housing Concerned About Future Housing: No Difficulty Paying Gas/Electric Bills: No Difficulty Paying for Meds: No Currently Unemployed: No Education: High School Diploma/GED Difficulty w/ Childcare or Family Care: No Living arrangements: alone Additional living arrangements comments: as of September 2020. She and her had 3 children, all whom are . Luis
--- NOTE | 2022-09-12 17:59 | PC.NURSE ---
This patient, Nelia Peterson, was admitted to IMU Room 206-02. Patient/family oriented to hospital policies and general routines including ID bracelet, bed and alarms, visiting hours, pain management, procedures, bathroom and other care routines, personal items, smoking policy, room service/diet, and visiting hours. Information on how to activate the Rapid Response Team has been discussed. Patient/Family are encouraged to report perceived risks to care and to ask questions if they do not understand what they are told or what they should do.
[2022-09-12 18:26] LABS: Troponin I < 0.012 ng/mL (0.000-0.034)
[2022-09-12] MEDS: hydrALAZINE HCL 20 MG/ML VIAL 5 MG IV PUSH (19:46)
[2022-09-12] MEDS: traMADol HCL (*CRX) 50 MG TABLET PO (20:32)
[2022-09-12] MEDS: buPROPion HCL SR (12 HR) 150 MG TAB PO (22:20)
[2022-09-13] VITALS (14 sets, daily range): BP systolic 109–190; BP diastolic 50–67; PULSE 46–78; RESP 16–20; TEMP 36.1–36.4; O2SAT 100
[2022-09-13] MEDS: traMADol HCL (*CRX) 50 MG TABLET PO ×2 (03:24→23:50)
[2022-09-13 05:26] LABS: Hematocrit 38.1 % (37.0-47.0); Hemoglobin 12.5 g/dL (12.0-15.0); Immature Platelet Fraction Pct 2.4 % (0.9-11.2); Mean Corpuscular HGB Conc 32.8 g/dl (32-36); Mean Corpuscular Hemoglobin 31.5 pg (26-34); Mean Platelet Volume 9.9 fl (7.4-10.4); Platelet Count Result 125 k/mm3 (150-375); Red Blood Count 3.97 M/mm3 (4.2-5.4); Red Cell Distribution Width 12.9 % (11.5-14.5)
[2022-09-13 05:36] LABS: Anion Gap 6 mmol/L (8-16); Blood Urea Nitrogen 29 mg/dL (7-17); Calcium 9.2 mg/dL (8.4-10.2); Carbon Dioxide 27 mmol/L (22-30); Chloride 104 mmol/L (98-107); Estimated Glomerular Filt Rate 28; Glucose 77 mg/dL (65-110); Magnesium 2.2 mg/dL (1.6-2.3); Potassium 3.9 mmol/L (3.4-5.0); Sodium 137 mmol/L (137-145)
[2022-09-13] MEDS: LEVOTHYROXINE SODIUM 50 MCG TABLET PO (05:42)
[2022-09-13] MEDS: FERROUS SULFATE 324 MG TABLET PO ×2 (08:30→17:02)
[2022-09-13] MEDS: NITROFURANTOIN MONOHYD MACROCR 100 MG CAP PO (08:30)
[2022-09-13] MEDS: CHOLECALCIFEROL 1,000 UNITS TABLET 2000 UNITS PO (08:30)
[2022-09-13] MEDS: buPROPion HCL SR (12 HR) 150 MG TAB PO ×2 (08:30→20:12)
--- NOTE | 2022-09-13 10:15 | PM.CNCAR ---
Assessment and Plan Assessment and plan (1) Orthostatic hypotension: Code(s): I95.1 - Orthostatic hypotension Status: Acute Assessment and Plan: Severe orthostatic hypotension with a 70 mm Hg drop from lying to standing which is the primary explanation of patient's complaints of dizziness and admission to the hospital. She is also noted to be bradycardic which certainly will add to her symptom complex but is not the primary reason she is admitted. Consider resuming midodrine 2.5 mg 3 times daily although need to be mindful of supine hypertension. Treatment for UTI, IV fluid support cautiously 250 cc normal saline and observe response. This places patient high risk for bleeding complications should she fall the patient denies recent falls or history of syncope. There does not appear to be a primary cardiac explanation for her orthostatic hypotension at this time and as stated bradycardia is secondary and/or incidental finding as opposed to the primary cause. While her bradycardia can certainly complicate things there is no indication for pacemaker at this time. (2) Bradycardia: Code(s): R00.1 - Bradycardia, unspecified Status: Acute Assessment and Plan: Patient was bradycardic on metoprolol tartrate 50 mg twice daily. All this may be in part contributing to her symptoms this was not the primary explanation. Metoprolol has been held with improvement in heart rate although she remains relatively bradycardic. We will continue Holter monitor. She has a history of paroxysmal atrial fibrillation and high risk for recurrence. This is suggestive tachycardia bradycardia syndrome. It remains to be seen if she will tolerate a very low dose of metoprolol. Continue to hold for now monitor on telemetry. Recommendation to follow. (3) Paroxysmal atrial fibrillation: Code(s): I48.0 - Paroxysmal atrial fibrillation Status: Acute Assessment and Plan: Maintaining sinus bradycardia. As above. Continue systemic anticoagulation with Eliquis 2.5 mg twice daily although this is currently on hold after concern for possible pacemaker need although this appears to be unlikely at this time so may resume. (4) Hypertension: Qualifiers: Hypertension type: essential hypertension Qualified Code(s): I10 - Essential (primary) hypertension Code(s): I10 - Essential (primary) hypertension Status: Acute Assessment and Plan: Patient remains hypertensive but significant orthostatic. Concern if midodrine restarted supine hypertension may be quite problematic. Her systolic blood pressure one point was greater than 200 mm Hg prominent hydralazine 5 mg IV x1. (5) Heart failure with preserved ejection fraction: Code(s): I50.30 - Unspecified diastolic (congestive) heart failure Status: Acute Assessment and Plan: Diuretics have been on hold since prior to last admission. She is not currently decompensated heart failure. Monitor volume status. (6) Chronic kidney disease: Qualifiers: Chronic kidney disease stage: unspecified stage Qualified Code(s): N18.9 - Chronic kidney disease, unspecified Code(s): N18.9 - Chronic kidney disease, unspecified Status: Chronic Assessment and Plan: Creatinine 1.8 presentation slightly up from her baseline. History of Present Illness History of Present Illness Consult date/time: Date of service: 09/13/22 10:15 Requesting physician: Octavia Cristina PA-C Consult reason: Other (Bradycardia, dizziness) Reason For Visit: Symptomatic bradycardia, hx afib, UTI Narrative: Patient is a pleasant 87-year-old female with a past medical history significant for paroxysmal atrial fibrillation maintained on chronic anticoagulation, heart failure preserved ejection fraction, hypertension, history of orthostatic hypotension, hypothyroidism, chronic kidney disease, recurrent urinary tract infection and anemia who p
--- NOTE | 2022-09-13 15:51 | PM.IMPN ---
Progress Note: A&P Assessment and Plan (1) Symptomatic bradycardia: Code(s): R00.1 - Bradycardia, unspecified Status: Acute Assessment and Plan: Hold metoprolol. Will also hold Eliquis in case she needs a pacemaker. Cardiology consulted. 09/13/2022 interval history 87-year-old female with history of proximal atrial fibrillation, presented with complaint of dizziness with palpitation upon arrival to emergency depart patient was interviewed relation with bradycardia and tachycardia, with high normal blood pressure, patient takes metoprolol 50 mg b.i.d., and present patient heart rate did is in 60s and and patient is clinically stable, patient be seen by Cardiology and further recommendation to follow. (2) Atrial fibrillation with rapid ventricular response: Code(s): I48.91 - Unspecified atrial fibrillation Status: Acute Assessment and Plan: The patient was in AFib/RVR on arrival per triage not and she was having sensations of racing heart and palpitations prior to coming in. Since arrival however she has been a sinus bradycardia as detailed in HPI. Metoprolol on hold given bradycardia. (3) Hypertension: Qualifiers: Hypertension type: essential hypertension Qualified Code(s): I10 - Essential (primary) hypertension Code(s): I10 - Essential (primary) hypertension Status: Acute Assessment and Plan: Blood pressure show isolated systolic hypertension. She did take her metoprolol this morning which of course is currently on hold. Hydralazine ordered p.r.n.. Will continue to monitor closely for now. (4) Chronic kidney disease: Qualifiers: Chronic kidney disease stage: unspecified stage Qualified Code(s): N18.9 - Chronic kidney disease, unspecified Code(s): N18.9 - Chronic kidney disease, unspecified Status: Chronic Assessment and Plan: Creatinine is essentially stable on review of previous labs. (5) Abnormal urinalysis: Code(s): R82.90 - Unspecified abnormal findings in urine Status: Acute Assessment and Plan: Currently on Macrobid though with her renal function that will be changed to ceftriaxone. Urine culture pending. 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 (7) Hypothyroidism: Code(s): E03.9 - Hypothyroidism, unspecified Status: Acute Assessment and Plan: Continue levothyroxine and check TSH. Subjective Date/time seen: 09/13/22 15:51 Dizziness. HPI-Narrative: This is a very pleasant 87-year-old female with paroxysmal atrial fibrillation on chronic anticoagulation, heart failure with preserved ejection fraction, hypertension, hypothyroidism, chronic kidney disease, anemia, and other comorbidities who presented to the emergency department via EMS from home for evaluation of dizziness. Patient provides the following history. She was in her usual state of health when she got up this morning and not long prior to arrival, simply while sitting down in a chair, she developed sudden onset of palpitations, dizziness, and a warm feeling throughout her body. She called 911 and on arrival to the emergency department she was found to be in atrial fibrillation with rates ranging between 30 and 120. Without intervention her heart rate did slow down and she has been persistently bradycardic since that time. Blood pressures have been stable and in fact they have been running anywhere from the 150s to 180s systolic. She has been on metoprolol 75 mg b.i.d.; she did take that this morning. She denies syncope, chest pain, pleuritic pain, shortness a breath, nausea, vomiting, and sweats. No recent cold or flu symptoms. She denies vomiting, diarrhea, and dysuria (currently on Macrobid for recent UTI, symptoms have improved). 09/13/2022 interval h
[2022-09-13] MEDS: PRAVASTATIN SODIUM 20 MG TABLET 80 MG PO (20:12)
[2022-09-13] MEDS: DOCUSATE SODIUM 100 MG CAPSULE PO (21:51)
[2022-09-14] VITALS (25 sets, daily range): BP systolic 128–218; BP diastolic 48–78; PULSE 54–96; RESP 16–20; TEMP 35.6–36.4; O2SAT 98–100
[2022-09-14] MEDS: LEVOTHYROXINE SODIUM 50 MCG TABLET PO (05:25)
[2022-09-14 05:49] LABS: Hematocrit 37.1 % (37.0-47.0); Mean Corpuscular HGB Conc 32.3 g/dl (32-36); Mean Corpuscular Volume 95.9 fl (80-100); Mean Platelet Volume 9.7 fl (7.4-10.4); Platelet Count Result 101 k/mm3 (150-375); Red Blood Count 3.87 M/mm3 (4.2-5.4); Red Cell Distribution Width 13.1 % (11.5-14.5); White Blood Count 3.6 K/mm3 (4.5-10.0)
[2022-09-14 06:01] LABS: Anion Gap 6 mmol/L (8-16); Blood Urea Nitrogen 28 mg/dL (7-17); Calcium 8.9 mg/dL (8.4-10.2); Carbon Dioxide 27 mmol/L (22-30); Chloride 105 mmol/L (98-107); Estimated Glomerular Filt Rate 28; Glucose 85 mg/dL (65-110); Magnesium 2.2 mg/dL (1.6-2.3); Potassium 4.2 mmol/L (3.4-5.0); Sodium 138 mmol/L (137-145)
[2022-09-14] MEDS: CHOLECALCIFEROL 1,000 UNITS TABLET 2000 UNITS PO (08:18)
[2022-09-14] MEDS: NITROFURANTOIN MONOHYD MACROCR 100 MG CAP PO (08:18)
[2022-09-14] MEDS: buPROPion HCL SR (12 HR) 150 MG TAB PO ×2 (08:19→20:06)
[2022-09-14] MEDS: FERROUS SULFATE 324 MG TABLET PO ×2 (08:19→17:35)
[2022-09-14] MEDS: DOCUSATE SODIUM 100 MG CAPSULE PO ×2 (08:21→20:06)
--- NOTE | 2022-09-14 09:24 | PM.IMPN ---
Progress Note: A&P Assessment and Plan (1) Symptomatic bradycardia: Code(s): R00.1 - Bradycardia, unspecified Status: Acute Assessment and Plan: Hold metoprolol. Will also hold Eliquis in case she needs a pacemaker. Cardiology consulted. Orthostatics were severe and positive, Landen ramsay now added, did not respond much to have small bolus, concern that patient has significant systolic hypertension at rest, cardiology is considering adding midodrine, defer management to them (2) Atrial fibrillation with rapid ventricular response: Code(s): I48.91 - Unspecified atrial fibrillation Status: Acute Assessment and Plan: The patient was in AFib/RVR on arrival per triage not and she was having sensations of racing heart and palpitations prior to coming in. Since arrival however she has been a sinus bradycardia as detailed in HPI. Metoprolol on hold given bradycardia. (3) Hypertension: Qualifiers: Hypertension type: essential hypertension Qualified Code(s): I10 - Essential (primary) hypertension Code(s): I10 - Essential (primary) hypertension Status: Acute Assessment and Plan: Blood pressure shows isolated systolic hypertension. She did take her metoprolol this morning which of course is currently on hold. Hydralazine ordered p.r.n.. Will continue to monitor closely for now. Blood pressure reviewed 09/14 (4) Chronic kidney disease: Qualifiers: Chronic kidney disease stage: unspecified stage Qualified Code(s): N18.9 - Chronic kidney disease, unspecified Code(s): N18.9 - Chronic kidney disease, unspecified Status: Chronic Assessment and Plan: Creatinine is essentially stable on review of previous labs. (5) Abnormal urinalysis: Code(s): R82.90 - Unspecified abnormal findings in urine Status: Acute Assessment and Plan: Currently on Macrobid though with her renal function that will be changed to ceftriaxone. Urine culture pending. 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 Per triage notes, she was initially in AFib with RVR but has been bradycardiac since then. No overnight events noted. No chest pain or shortness of breath. No nausea, vomiting or diarrhea. No fevers or chills. Complaining of a headache. Still a little weak upon standing. Review of Systems Review of Systems: 12 point review of systems was assessed and was negative except as noted in the HPI Exam Narrative: General: No acute distress, alert and oriented per baseline HEENT: Atraumatic, normocephalic, mucous membranes moist CV: Regular rate and rhythm, S1, S2 Lungs: Clear to auscultation bilaterally, no rales or crackles noted, no wheezes, good air entry Abdomen: Soft, nontender, nondistended Extremities: Normal to inspection, bilateral nonpitting lymphedema noted, Landen hose in place Skin: No rashes noted, no lesions or wounds seen Psych: Euthymic, normal affect Objective Data Vital Signs Vital Signs: Vital Signs - 24 hr 09/13/22 10:00 09/13/22 12:00 09/13/22 12:00 Temperature Pulse Rate 55 L 52 L Respiratory Rate Blood Pressure Pulse Oximetry 100 Oxygen Delivery Room Air 09/13/22 12:00 09/13/22 14:00 09/13/22 16:00 Temperature 97.1 F L Pulse R
[2022-09-14] MEDS: SODIUM CHLORIDE 0.9% IV 250 ML 100 ML IV CONT (12:01)
--- NOTE | 2022-09-14 13:22 | PM.PNCARD ---
Progress Note: A&P Assessment and Plan (1) Orthostatic hypotension: Code(s): I95.1 - Orthostatic hypotension Status: Acute Assessment and Plan: Severe orthostatic hypotension with a 70 mm Hg drop from lying to standing which is the primary explanation of patient's complaints of dizziness and admission to the hospital. Give IV normal saline 250 cc x1. Repeat orthostatic vital signs. Given patient's persistent systolic hypertension there is a firm under risk with initiation of midodrine which may result in significant supine hypertension perhaps to an unacceptable degree. Lower extremity compression stockings advised. Continue treatment for UTI. She remains off any antihypertensive therapy including beta-blockers. Discussed plan of care at length with the patient who verbalized understanding and agreed with plan of care. Complicated management. (2) Bradycardia: Code(s): R00.1 - Bradycardia, unspecified Status: Acute Assessment and Plan: Patient was bradycardic on metoprolol tartrate 50 mg twice daily. All this may be in part contributing to her symptoms this was not the primary explanation. Metoprolol has been held with some improvement in heart rate although she remains relatively bradycardic. We will continue telemetry. She has a history of paroxysmal atrial fibrillation and remains at high risk for recurrence. This is suggestive tachycardia bradycardia syndrome. We need to monitor heart rate increment with activity as beta-bryan therapy washes out.. (3) Paroxysmal atrial fibrillation: Code(s): I48.0 - Paroxysmal atrial fibrillation Status: Acute Assessment and Plan: Maintaining sinus bradycardia. As above. Continue systemic anticoagulation with Eliquis 2.5 mg twice daily although this is currently on hold after concern for possible pacemaker need although this appears to be unlikely at this time so may resume. (4) Hypertension: Qualifiers: Hypertension type: essential hypertension Qualified Code(s): I10 - Essential (primary) hypertension Code(s): I10 - Essential (primary) hypertension Status: Acute Assessment and Plan: Patient remains significantly hypertensive but also significantly orthostatic. Concern if midodrine restarted supine hypertension may be quite problematic. (5) Heart failure with preserved ejection fraction: Code(s): I50.30 - Unspecified diastolic (congestive) heart failure Status: Acute Assessment and Plan: Diuretics have been on hold since prior to last admission and she remains euvolemic. Continue to monitor volume status. (6) Chronic kidney disease: Qualifiers: Chronic kidney disease stage: unspecified stage Qualified Code(s): N18.9 - Chronic kidney disease, unspecified Code(s): N18.9 - Chronic kidney disease, unspecified Status: Chronic Assessment and Plan: Patient presented with mild acute on chronic renal insufficiency improved to 1.7 thus far. Continue to follow BMP. Subjective Date/time seen: Date of service: 09/14/22 13:22 Follow-up for orthostatic hypotension, bradycardia, history of paroxysmal atrial fibrillation Patient feeling okay but still feels little with dizzy particularly with position change. She also describes a head spinning sensation when she lies back on occasion. No near-syncope or syncope. No chest pain, palpitations. No fevers or chills. She denies dysuria or hematuria. Review of Systems Review of Systems: Remainder of the review of systems is otherwise negative aside from that noted in the HPI. All systems reviewed & are unremarkable except as noted in HPI and below Constitutional: Constitutional: Reports as per HPI and Reports no additional constitutional complaints Eyes: Eyes: Reports as per HPI and Reports no additional eye complaints ENT: Reports system reviewed and no additional complaints, except as documented and Report
[2022-09-14] MEDS: PRAVASTATIN SODIUM 20 MG TABLET 80 MG PO (20:05)
[2022-09-14] MEDS: APIXABAN 2.5 MG TABLET PO (20:06)
[2022-09-14] MEDS: ACETAMINOPHEN 325 MG TABLET 650 MG PO (21:15)
[2022-09-15] VITALS (22 sets, daily range): BP systolic 104–231; BP diastolic 52–95; PULSE 56–148; RESP 18–20; TEMP 35.7–36.5; O2SAT 99–100
[2022-09-15] MEDS: ACETAMINOPHEN 325 MG TABLET 650 MG PO ×3 (04:27→20:21)
[2022-09-15 04:52] LABS: Hematocrit 40.5 % (37.0-47.0); Hemoglobin 12.9 g/dL (12.0-15.0); Mean Corpuscular HGB Conc 31.9 g/dl (32-36); Mean Corpuscular Hemoglobin 31.2 pg (26-34); Mean Corpuscular Volume 98.1 fl (80-100); Platelet Count Result 108 k/mm3 (150-375); Red Blood Count 4.13 M/mm3 (4.2-5.4); Red Cell Distribution Width 12.8 % (11.5-14.5)
[2022-09-15 05:03] LABS: Anion Gap 12 mmol/L (8-16); Blood Urea Nitrogen 27 mg/dL (7-17); Calcium 9.2 mg/dL (8.4-10.2); Carbon Dioxide 20 mmol/L (22-30); Chloride 106 mmol/L (98-107); Estimated Glomerular Filt Rate 33; Glucose 70 mg/dL (65-110); Magnesium 2.3 mg/dL (1.6-2.3); Potassium 4.2 mmol/L (3.4-5.0); Sodium 138 mmol/L (137-145)
[2022-09-15] MEDS: LEVOTHYROXINE SODIUM 50 MCG TABLET PO (06:07)
--- NOTE | 2022-09-15 07:57 | PC.NURSE ---
Notified Dr. Kendall of patient now in Afib RVR while trying to obtain orthostatic blood pressures. Lying BP 145/91, sitting 104/90, unable to obtain standing. Pt became dizzy and had to sit down. Heart rate 120-160's. New order for 2.5 IVP Lopressor x1 now.
[2022-09-15] MEDS: METOPROLOL TARTRATE INJ 5 MG/5 ML VIAL 2.5 MG IV PUSH (08:02)
[2022-09-15] MEDS: APIXABAN 2.5 MG TABLET PO ×2 (08:03→20:21)
[2022-09-15] MEDS: buPROPion HCL SR (12 HR) 150 MG TAB PO ×2 (08:03→20:21)
[2022-09-15] MEDS: FERROUS SULFATE 324 MG TABLET PO ×2 (08:03→16:58)
[2022-09-15] MEDS: CHOLECALCIFEROL 1,000 UNITS TABLET 2000 UNITS PO (08:03)
[2022-09-15] MEDS: AMOXICILLIN 500 MG CAPSULE PO ×3 (08:03→20:21)
[2022-09-15] MEDS: DOCUSATE SODIUM 100 MG CAPSULE PO (08:06)
--- NOTE | 2022-09-15 14:48 | PM.IMPN ---
Progress Note: A&P Assessment and Plan (1) Symptomatic bradycardia: Code(s): R00.1 - Bradycardia, unspecified Status: Acute Assessment and Plan: Hold metoprolol. Will also hold Eliquis in case she needs a pacemaker. Cardiology consulted. Orthostatics were severe and positive, Landen ramsay now added, did not respond much to have small bolus, concern that patient has significant systolic hypertension at rest, cardiology is considering adding midodrine, defer management to them 09/15/2022- interval history: 87-year-old female with history of proximal atrial fibrillation,? presented with complaint of dizziness with palpitation upon arrival to emergency depart patient with bradycardia and tachycardia, with high normal blood pressure, patient takes metoprolol 50 mg b.i.d., and present patient heart rate did was in 60s and and patient, metoprolol was placed on hold, patient also found to have significant orthostatic hypotension and supine hypertension seen by cardiology patient is not a candidate for midodrine as this will increase supine hypertension recommended compressive stocking, patient is off all her blood pressure medication her blood pressure is elevated will continue to monitor. (2) Atrial fibrillation with rapid ventricular response: Code(s): I48.91 - Unspecified atrial fibrillation Status: Acute Assessment and Plan: The patient was in AFib/RVR on arrival per triage not and she was having sensations of racing heart and palpitations prior to coming in. Since arrival however she has been a sinus bradycardia as detailed in HPI. Metoprolol on hold given bradycardia. (3) Hypertension: Qualifiers: Hypertension type: essential hypertension Qualified Code(s): I10 - Essential (primary) hypertension Code(s): I10 - Essential (primary) hypertension Status: Acute Assessment and Plan: Blood pressure shows isolated systolic hypertension. She did take her metoprolol this morning which of course is currently on hold. Hydralazine ordered p.r.n.. Will continue to monitor closely for now. Blood pressure reviewed 09/14 (4) Chronic kidney disease: Qualifiers: Chronic kidney disease stage: unspecified stage Qualified Code(s): N18.9 - Chronic kidney disease, unspecified Code(s): N18.9 - Chronic kidney disease, unspecified Status: Chronic Assessment and Plan: Creatinine is essentially stable on review of previous labs. (5) Abnormal urinalysis: Code(s): R82.90 - Unspecified abnormal findings in urine Status: Acute Assessment and Plan: Currently on Macrobid though with her renal function that will be changed to ceftriaxone. Urine culture pending. 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 Per triage notes, she was initially in AFib with RVR but has been bradycardiac since then. No overnight events noted. No chest pain or shortness of breath. No nausea, vomiting or diarrhea. No fevers or chills. Complaining of a headache. Still a little weak upon standing. 09/15/2022- interval history: 87-year-old female with history of proximal atrial fibrillation,? presented with complaint of dizziness with palpitation upon arrival to emergency depart patient with bradycardia and tachycardia, with
--- NOTE | 2022-09-15 15:49 | PM.PNCARD ---
Progress Note: A&P Assessment and Plan (1) Orthostatic hypotension: Code(s): I95.1 - Orthostatic hypotension Status: Acute Assessment and Plan: Severe orthostatic hypotension with labile hypertension with severe systolic elevation at times and significant ongoing drop from lying to standing which is the primary explanation of patient's complaints of dizziness and admission to the hospital. IV normal saline boluses result in significant elevations in her blood pressure. Highly unlikely she will safely tolerate midodrine unfortunately. Continue to monitor orthostatic vital signs. Lower extremity compression stockings. Abdominal binder. lower extremity compression stockings advised. Continue treatment for UTI. Unfortunately she will require re-initiation some AV reid blocking agent tolerate metoprolol thus far ED monitor for reduction of blood pressure in worsening of orthostasis. Discussed plan of care at length with the patient who verbalized understanding and agreed with plan of care. Complicated management. (2) Bradycardia: Code(s): R00.1 - Bradycardia, unspecified Status: Acute Assessment and Plan: Bradycardia has resolved as expected yet patient had recurrence of AFib with RVR requiring IV metoprolol. She is back in sinus rhythm but will require some medical therapy unfortunately. Will initiate metoprolol tartrate 6.25 mg twice daily. Monitor BP response intolerance. (3) Paroxysmal atrial fibrillation: Code(s): I48.0 - Paroxysmal atrial fibrillation Status: Acute Assessment and Plan: As above. Continue systemic anticoagulation with Eliquis 2.5 mg twice daily although this is currently on hold after concern for possible pacemaker need although this appears to be unlikely at this time so may resume. (4) Hypertension: Qualifiers: Hypertension type: essential hypertension Qualified Code(s): I10 - Essential (primary) hypertension Code(s): I10 - Essential (primary) hypertension Status: Acute Assessment and Plan: Patient remains significantly hypertensive but also significantly orthostatic. It appears unlikely patient will tolerate midodrine due to risk for severe supine hypertension. (5) Heart failure with preserved ejection fraction: Code(s): I50.30 - Unspecified diastolic (congestive) heart failure Status: Acute Assessment and Plan: Diuretics have been on hold since prior to last admission and she remains euvolemic. Continue to monitor volume status. (6) Chronic kidney disease: Qualifiers: Chronic kidney disease stage: unspecified stage Qualified Code(s): N18.9 - Chronic kidney disease, unspecified Code(s): N18.9 - Chronic kidney disease, unspecified Status: Chronic Assessment and Plan: Patient presented with mild acute on chronic renal insufficiency improved to 1.5 thus far. Continue to follow BMP. Subjective Date/time seen: Date of service: 09/15/22 15:49 Follow-up for paroxysmal atrial fibrillation, bradycardia, orthostatic hypotension Patient continues to feel significantly dizzy with position change. She states she is not comfortable ambulating without assistance and is concerned about going home feeling this way. She was constipated but had a bowel movement now feels better in this regard. Blood pressure is quite labile very hypertensive at times over 200 mm Hg systolic but with significant oppositional decline in her blood pressure. She had recurrence of atrial fibrillation with rapid ventricular response overnight improved after IV metoprolol currently back in sinus rhythm. Review of Systems Review of Systems: Remainder of the review of systems is otherwise negative aside from that noted in the HPI. All systems reviewed & are unremarkable except as noted in HPI and below Constitutional: Constitutional: Reports as per HPI and Reports no additional constitutional complaints
[2022-09-15] MEDS: PRAVASTATIN SODIUM 20 MG TABLET 80 MG PO (20:21)
[2022-09-15] MEDS: MELATONIN 3 MG TABLET PO (20:22)
[2022-09-16] VITALS (21 sets, daily range): BP systolic 64–206; BP diastolic 52–108; PULSE 71–132; RESP 12–20; TEMP 36.3–36.9; O2SAT 99–100
[2022-09-16 05:09] LABS: Hematocrit 40.9 % (37.0-47.0); Hemoglobin 13.1 g/dL (12.0-15.0); Mean Corpuscular Hemoglobin 30.8 pg (26-34); Mean Platelet Volume 9.9 fl (7.4-10.4); Platelet Count Result 103 k/mm3 (150-375); Red Blood Count 4.26 M/mm3 (4.2-5.4); Red Cell Distribution Width 13.2 % (11.5-14.5); White Blood Count 4.6 K/mm3 (4.5-10.0)
[2022-09-16 05:48] LABS: Anion Gap 7 mmol/L (8-16); Blood Urea Nitrogen 24 mg/dL (7-17); Calcium 9.5 mg/dL (8.4-10.2); Carbon Dioxide 28 mmol/L (22-30); Chloride 106 mmol/L (98-107); Estimated Glomerular Filt Rate 31; Glucose 70 mg/dL (65-110); Magnesium 2.1 mg/dL (1.6-2.3); Potassium 4.3 mmol/L (3.4-5.0); Sodium 141 mmol/L (137-145)
[2022-09-16] MEDS: AMOXICILLIN 500 MG CAPSULE PO (06:01)
[2022-09-16] MEDS: LEVOTHYROXINE SODIUM 50 MCG TABLET PO (06:01)
--- NOTE | 2022-09-16 07:44 | PC.NURSE ---
Spoke with night RN that confirmed she did administer the 2.5 IVP Lopressor at around 0620. I forgot to scan the medication but it was given.
--- NOTE | 2022-09-16 07:52 | PC.NURSE ---
Notified Dr. Salinas of patient's heart rhythm back in AFib RVR vs ST with heart rate as high as 126. Pt just had an episode at 0620 with 2.5 IVP Lopressor given at that time. Pt complains of dizziness upon standing. Pt remains orthostatic with a 90 mmHg point drop on her SBP. New order for 6.25 PO Metoprolol now and then schedule for q12h, also 2.5 PO Midodrine now and reassess BP at least on hour after medication has been administered.
[2022-09-16] MEDS: MIDODRINE HCL 2.5 MG TABLET PO (08:11)
[2022-09-16] MEDS: METOPROLOL TARTRATE 6.25 MG TABLET PO ×2 (08:11→20:32)
--- NOTE | 2022-09-16 09:32 | PC.NURSE ---
This RN called to patient's room. Patient had called out stating I'm having an episode. I don't feel right. I feel like I did when I came in. RN had notified patient having pauses on vehicle monitor technician. This RN called Dr. Kendall's phone to notify him of pt having up to 4 sec pauses. Phone was answered by Bilingual Teacher Aide (NILS Hernandez) and message was left with NILS Hernandez d/t Dr. Kendall being in a procedure. Kylah Barbosa NP had approached nurses station at this time and was updated on patient's condition and issues. Pt is symptomatic with dizziness and feeling of passing out when her heart pauses. Strips printed and given to Kylah Barbosa NP. Eliquis held per Kylah Barbosa NP for possible pacemaker placement. Patient made strict bedrest until further notice.
--- NOTE | 2022-09-16 10:10 | PM.PNCARD ---
Progress Note: A&P Assessment and Plan (1) Orthostatic hypotension: Code(s): I95.1 - Orthostatic hypotension Status: Acute Assessment and Plan: Severe orthostatic hypotension with labile hypertension with severe systolic elevation at times and significant ongoing drop from lying to standing which is the primary explanation of patient's complaints of dizziness and admission to the hospital. IV normal saline boluses result in significant elevations in her blood pressure. Highly unlikely she will safely tolerate midodrine unfortunately. Continue to monitor orthostatic vital signs. Lower extremity compression stockings. Abdominal binder. lower extremity compression stockings advised. Continue treatment for UTI. Unfortunately she will require re-initiation some AV reid blocking agent tolerate metoprolol thus far ED monitor for reduction of blood pressure in worsening of orthostasis. Discussed plan of care at length with the patient who verbalized understanding and agreed with plan of care. Complicated management. (2) Bradycardia: Code(s): R00.1 - Bradycardia, unspecified Status: Acute Assessment and Plan: After receiving low dose metoprolol this morning because of recurrence of AF RVR, she had several significant sinus pauses (longest 4.1 seconds). She was very symptomatic with these events, stating she felt that she was going to pass out while lying supine in bed. Several episodes of these pauses with subsequent reversion to atrial fibrillation with RVR. 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 Unfortunately, she has been anticoagulated with Eliquis (last dose 412 p.m.), so unable to undergo permanent pacemaker placement until Tuesday due to bleeding risk. Therefore, will plan for transvenous pacemaker this afternoon. Discussed this plan at length with the patient. Answered all questions to her satisfaction. (3) Paroxysmal atrial fibrillation: Code(s): I48.0 - Paroxysmal atrial fibrillation Status: Acute Assessment and Plan: As above. Holding Eliquis 2.5 mg twice daily for pacemaker placement on 09/20. (4) Hypertension: Qualifiers: Hypertension type: essential hypertension Qualified Code(s): I10 - Essential (primary) hypertension Code(s): I10 - Essential (primary) hypertension Status: Acute Assessment and Plan: Patient remains significantly hypertensive but also significantly orthostatic. It appears unlikely patient will tolerate midodrine due to risk for severe supine hypertension. (5) Heart failure with preserved ejection fraction: Code(s): I50.30 - Unspecified diastolic (congestive) heart failure Status: Acute Assessment and Plan: Diuretics have been on hold since prior to last admission and she remains euvolemic. Continue to monitor volume status. (6) Chronic kidney disease: Qualifiers: Chronic kidney disease stage: unspecified stage Qualified Code(s): N18.9 - Chronic kidney disease, unspecified Code(s): N18.9 - Chronic kidney disease, unspecified Status: Chronic Assessment and Plan: Patient presented with mild acute on chronic renal insufficiency. Continue to follow BMP. Subjective Date/time seen: 09/16/22 10:10 Cardiology follow up for atrial fibrillation She has been having pre-syncope while lying in bed this morning secondary to pauses. Earlier this morning did have more AF RVR and rec'd very low dose metoprolol. Review of Systems Review of Systems: All systems reviewed & are unremarkable except as noted in HPI and below Constitutional: Constitutional: Reports as per HPI and Reports no additional constitutional complaints Eyes: Eyes: Reports as per HPI and Reports no additional eye complaints ENT: Reports system reviewed and no additional complaints, except a
[2022-09-16] MEDS: buPROPion HCL SR (12 HR) 150 MG TAB PO ×2 (10:12→20:32)
[2022-09-16] MEDS: CHOLECALCIFEROL 1,000 UNITS TABLET 2000 UNITS PO (10:12)
[2022-09-16] MEDS: FERROUS SULFATE 324 MG TABLET PO ×2 (10:12→19:33)
--- NOTE | 2022-09-16 12:30 | PC.NURSE ---
Called Kylah Barbosa NP regarding patient's request to use the restroom. Patient has been NSR with no pauses since about 11:00. New orders: Pt isn't allowed to ambulate to the bathroom, but patient may use bedside commode with strict staff supervision.
--- NOTE | 2022-09-16 13:17 | PM.IMPN ---
Progress Note: A&P Assessment and Plan (1) Symptomatic bradycardia: Code(s): R00.1 - Bradycardia, unspecified Status: Acute Assessment and Plan: Hold metoprolol. Will also hold Eliquis in case she needs a pacemaker. Cardiology consulted. Orthostatics were severe and positive, Landen ramsay now added, did not respond much to have small bolus, concern that patient has significant systolic hypertension at rest, cardiology is considering adding midodrine, defer management to them 09/16/2022- interval history: 87-year-old female with history of proximal atrial fibrillation,? presented with complaint of dizziness with palpitation upon arrival to emergency depart patient with bradycardia and tachycardia, with high normal blood pressure, patient takes metoprolol 50 mg b.i.d., and present patient heart rate was in 60s and and patient, metoprolol was placed on hold, patient also found to have significant orthostatic hypotension and supine hypertension seen by cardiology patient is not a candidate for midodrine as this will increase supine hypertension recommended compressive stocking, and started on low dose metoprolol 6.25mg BID, patient with recurrent UTI continue to complaints of dysuria and urinary incontinent, urine culture is growing Proteus mirabilis sensitive to ceftriaxone, will stop amoxicillin will continue to monitor. (2) Atrial fibrillation with rapid ventricular response: Code(s): I48.91 - Unspecified atrial fibrillation Status: Acute Assessment and Plan: The patient was in AFib/RVR on arrival per triage not and she was having sensations of racing heart and palpitations prior to coming in. Since arrival however she has been a sinus bradycardia as detailed in HPI. Metoprolol on hold given bradycardia. (3) Hypertension: Qualifiers: Hypertension type: essential hypertension Qualified Code(s): I10 - Essential (primary) hypertension Code(s): I10 - Essential (primary) hypertension Status: Acute Assessment and Plan: Blood pressure shows isolated systolic hypertension. She did take her metoprolol this morning which of course is currently on hold. Hydralazine ordered p.r.n.. Will continue to monitor closely for now. Blood pressure reviewed 09/14 (4) Chronic kidney disease: Qualifiers: Chronic kidney disease stage: unspecified stage Qualified Code(s): N18.9 - Chronic kidney disease, unspecified Code(s): N18.9 - Chronic kidney disease, unspecified Status: Chronic Assessment and Plan: Creatinine is essentially stable on review of previous labs. (5) Abnormal urinalysis: Code(s): R82.90 - Unspecified abnormal findings in urine Status: Acute Assessment and Plan: Currently on Macrobid though with her renal function that will be changed to ceftriaxone. Urine culture pending. (6) Current use of long-term anticoagulation: Code(s): Z79.01 - penitentiary (current) use of anticoagulants Status: Acute Assessment and Plan: No need for pacemaker per Cardiology (7) Hypothyroidism: Code(s): E03.9 - Hypothyroidism, unspecified Status: Acute Assessment and Plan: Continue levothyroxine, TSH within normal limits Plan DVT prophylaxis with eliquis GI prophylaxis not indicated Code status full code Subjective Date/time seen: 09/16/22 13:17 Interval history: 87-year-old female with AFib, heart failure, hypothyroidism and kidney disease is presenting with dizziness and found to be in symptomatic bradycardia. Per triage notes, she was initially in AFib with RVR but has been bradycardiac since then. No overnight events noted. No chest pain or shortness of breath. No nausea, vomiting or diarrhea. No fevers or chills. Complaining of a headache. Still a little weak upon standing. 09/16/2022- interval history: 87-year-old female with history of proximal atrial fibrilla
--- NOTE | 2022-09-16 16:15 | PC.NURSE ---
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
--- NOTE | 2022-09-16 17:33 | WPDCARDPROC ---
Cardiac Cath Procedure Note Date of procedure:: 09/16/22 Performing physician:: CATHETERIZATION LABORATORY REPORT Procedure Date: 09/16/2022 Commercial Real Estate Lender: Uzma Law M.D., [facility]? Referring Physician: Dr. Kendall ? Anesthesia: Procedure start time: 16:59 Procedure end time: 17:16 Total procedure time: 17 minutes No sedation was administered for this procedure Pre-op Diagnosis: Tachy-clyde syndrome, symptomatic pauses Post-op Diagnosis: Successful placement of temporary transvenous pacer via right femoral vein Procedure(s): 1. Ultrasound-guided access of the right femoral vein 2. Successful placement of temporary transvenous pacer Access Site: Right femoral vein Brief History and Clinical Indications: Patient is an 87-year-old female who is referred for temporary transvenous pacer for tachy-clyde syndrome and symptomatic pauses. All risks, benefits and alternatives to temporary transvenous pacer was discussed at length with the patient. Risk of complications including but not limited to bleeding, infection, arrhythmia, blood loss, groin hematoma, emergency surgery, and even were discussed with the patient and all questions were answered. The patient understood and wished to proceed. Time out called, patient name, date of , medical record number, allergies, procedure performed, identify Commercial Real Estate Lender, patient and staff member concurred with accurate data, procedure carried on. Description of Procedure: Informed consent signed and placed in the chart. Patient transferred to dairy and food laboratory assistant room. Prepped and draped in usual sterile fashion. 2% lidocaine injected subcutaneously in right groin area. Right femoral vein was accessed using micropuncture technique. 6FR sheath placed. 5F temporary transvenous pacer was advanced into the sheath and advanced into the right ventricle and positioned in right ventricular apex. Good pacing capture. Pacer loses capture at 0.5mA. Pacer set at backup rate of 60BPM and 3mA. Sheath was sutured in place. ? Assessment: Successful placement of temporary transvenous pacer via right femoral vein Post Operative Condition: Stable No significant blood loss Disposition: ICU Plan: Patient will be transferred to the ICU. Obtain STAT CXR. ? Uzma Law M.D. Interventional Cardiology
[2022-09-16] MEDS: hydrALAZINE HCL 20 MG/ML VIAL 5 MG IV PUSH (18:08)
[2022-09-16] MEDS: traMADol HCL (*CRX) 50 MG TABLET PO (18:09)
--- NOTE | 2022-09-16 19:21 | PC.NURSE ---
Patient to ICU#9 without issue. Blood pressure elevated, IVP Hydralazine given. Dr. Kumar notified of elevated BP and patient anxiety. Additional IVP Hydralazine ordered plus PO Xanax.
[2022-09-16] MEDS: hydrALAZINE HCL 20 MG/ML VIAL 10 MG IV PUSH (19:31)
[2022-09-16] MEDS: ACETAMINOPHEN 325 MG TABLET 650 MG PO (19:31)
[2022-09-16] MEDS: ALPRAZolam (*CRX) 0.25 MG TABLET PO (19:31)
[2022-09-16] MEDS: PRAVASTATIN SODIUM 20 MG TABLET 80 MG PO (20:32)
[2022-09-16] MEDS: HYDROmorphone HCL INJ (*CRX) 1 MG/ML SYR 0.5 MG IV PUSH (20:38)
[2022-09-17] VITALS (17 sets, daily range): BP systolic 131–183; BP diastolic 65–95; PULSE 75–127; RESP 12–22; TEMP 36.2–37.3; O2SAT 95–100
[2022-09-17] MEDS: oxyCODONE/ACETAMINOPHEN (*CRX) 5-325 MG TABLET 1 TABLET PO ×3 (00:38→12:13)
[2022-09-17] MEDS: LEVOTHYROXINE SODIUM 50 MCG TABLET PO (05:37)
[2022-09-17 07:33] LABS: Hematocrit 39.4 % (37.0-47.0); Hemoglobin 12.9 g/dL (12.0-15.0); Immature Platelet Fraction Pct 2.1 % (0.9-11.2); Mean Corpuscular HGB Conc 32.7 g/dl (32-36); Mean Corpuscular Hemoglobin 30.9 pg (26-34); Mean Corpuscular Volume 94.5 fl (80-100); Mean Platelet Volume 9.8 fl (7.4-10.4); Platelet Count Result 128 k/mm3 (150-375); Red Blood Count 4.17 M/mm3 (4.2-5.4); Red Cell Distribution Width 13.2 % (11.5-14.5); White Blood Count 6.3 K/mm3 (4.5-10.0)
[2022-09-17 07:45] LABS: Anion Gap 9 mmol/L (8-16); Blood Urea Nitrogen 26 mg/dL (7-17); Calcium 9.6 mg/dL (8.4-10.2); Carbon Dioxide 24 mmol/L (22-30); Chloride 104 mmol/L (98-107); Estimated Glomerular Filt Rate 33; Glucose 86 mg/dL (65-110); Magnesium 2.1 mg/dL (1.6-2.3); Potassium 4.6 mmol/L (3.4-5.0); Sodium 137 mmol/L (137-145)
[2022-09-17] MEDS: buPROPion HCL SR (12 HR) 150 MG TAB PO ×2 (08:23→21:04)
[2022-09-17] MEDS: FERROUS SULFATE 324 MG TABLET PO ×2 (08:23→15:26)
[2022-09-17] MEDS: CHOLECALCIFEROL 1,000 UNITS TABLET 2000 UNITS PO (08:23)
[2022-09-17] MEDS: METOPROLOL TARTRATE 6.25 MG TABLET PO (08:24)
--- NOTE | 2022-09-17 08:31 | WPDCNINT ---
Assessment and Plan Assessment and plan (1) Symptomatic bradycardia: Code(s): R00.1 - Bradycardia, unspecified Status: Acute Assessment and Plan: Patient has had frequent sinus pauses. Currently in sinus rhythm 09/16 status post transfuse pacemaker placement Plan for permanent pacemaker placement by Cardiology once the anticoagulation wears off (2) Atrial fibrillation with rapid ventricular response: Code(s): I48.91 - Unspecified atrial fibrillation Status: Acute Assessment and Plan: Currently in sinus rhythm Continue p.o. beta-bryan Anticoagulation is on hold (3) Heart failure with preserved ejection fraction: Code(s): I50.30 - Unspecified diastolic (congestive) heart failure Status: Acute Assessment and Plan: Chest x-ray clear. Patient on room air Most recent echo 07/28 Summary ? 1. Complete two-dimensional, color flow and Doppler transthoracic echocardiogram is performed. ? 2. Left ventricular chamber dimension is normal. ? 3. Left ventricular systolic function is normal, estimated at 60-65%. ? 4. There is moderately increased left ventricular wall thickness. ? 5. The left ventricular diastolic function is abnormal. ? 6. Global longitudinal strain is abnormal at -9 %. ? 7. Left atrial chamber dimension is moderately enlarged. ? 8. Right atrial chamber dimension is mildly enlarged. ? 9. There is mild aortic valve stenosis with a peak velocity of 219 cm/s, mean gradient of 5 mmHg, and aortic valve area of 1.6 cm2. ? 10. There is mild aortic valve regurgitation. ? 11. There is moderate aortic valve calcification. ? 12. There is moderate to severe mitral valve regurgitation. ? 13. There is mild to moderate tricuspid valve regurgitation. ? 14. Mild pulmonary hypertension, estimated pulmonary arterial systolic pressure is 41 mmHg. ? 15. There is small pericardial effusion. ? 16. No echocardiographic evidence of tamponade physiology. ? 17. Strain analysis performed. (4) Hypothyroidism: Code(s): E03.9 - Hypothyroidism, unspecified Status: Acute Assessment and Plan: Continue Synthroid (5) Chronic kidney disease: Qualifiers: Chronic kidney disease stage: unspecified stage Qualified Code(s): N18.9 - Chronic kidney disease, unspecified Code(s): N18.9 - Chronic kidney disease, unspecified Status: Chronic Assessment and Plan: Patient creatinine has initially been stable at her baseline she has low urine output I will place Bui for accurate urine monitoring as patient is unable to use bedpan or get out of bed due to her transfuse pacemaker Her blood pressure and electrolytes are acceptable. I will Will give a small bolus of IV fluid Monitor urine output electrolytes and creatinine (6) UTI (urinary tract infection): Qualifiers: Hematuria presence: with hematuria Urinary tract infection type: acute cystitis Qualified Code(s): N30.01 - Acute cystitis with hematuria Code(s): N39.0 - Urinary tract infection, site not specified Status: Acute Assessment and Plan: Urine cultures growing Proteus mirabilis Continue IV Rocephin Plan DVT prophylaxis -SCDs, start DVT prophylaxis Lovenox Nutrition -diet ordered Code Status - Full Code Geophysical Prospecting Permit Agent Consult Note Consult date: 09/17/22 Reason for consult: Bradycardia HPI: Nelia Peterson is a 87 year old female with paroxysmal atrial fibrillation on chronic anticoagulation, heart failure with preserved ejection fraction, hypertension, hypothyroidism, chronic kidney disease, anemia, and other comorbidities who was admitted on 09/12 with chief complaint of dizziness. She complained of sudden onset of palpitations, dizziness, and a warm feeling throughout her body. She called 911 and on arrival to the emergency department she was found to be in atrial fibrillation with rates ranging between 30 and 120. She had been on metoprolol 75 mg b.i.d. patient was admitt
[2022-09-17] MEDS: ENOXAPARIN 30 MG/0.3 ML SYRINGE SUB-Q (09:22)
[2022-09-17] MEDS: LACTATED RINGERS 500 ML IV CONT (09:23)
[2022-09-17] MEDS: HYDROmorphone HCL INJ (*CRX) 1 MG/ML SYR 0.5 MG IV PUSH ×2 (10:08→17:35)
[2022-09-17] MEDS: hydrALAZINE HCL 20 MG/ML VIAL 5 MG IV PUSH ×2 (10:08→15:26)
[2022-09-17] MEDS: traMADol HCL (*CRX) 50 MG TABLET PO (15:27)
--- NOTE | 2022-09-17 16:21 | PM.PNCARD ---
Progress Note: A&P Assessment and Plan (1) Bradycardia: Code(s): R00.1 - Bradycardia, unspecified Status: Acute (2) Atrial fibrillation with rapid ventricular response: Code(s): I48.91 - Unspecified atrial fibrillation Status: Acute Plan 87-year-old patient with paroxysmal atrial fib in evidence of significant sinus node dysfunction with picture of tachy-clyde occluding long pauses that are symptomatic. She has received a transvenous wire by my partner yesterday. Apixaban has been withdrawn and she is anticipating pacemaker implant. On examining her today I find this lady to be very frail with concerning chest vascular anatomy as her subclavian artery is clearly palpable inferior to the clavicle. With this type of complex vascular anatomy because of advanced age and frailty I believe there is significant safety advantage in terms of placing a leadless pacemaker system. I will anticipate and make arrangements to do this on Tuesday. The obvious disadvantages we will not be able to pace the atrium but her predominant rhythm is sinus with occasional pauses and in this elderly lady this device should clear prevent these pauses and allow for more aggressive medical therapy for atrial tachyarrhythmias. Aurelio Chamberlain MD [facility] Subjective Date/time seen: Date of service:09/17/22 16:21 Interval history: 87-year-old female with AFib, heart failure, hypothyroidism and kidney disease is presenting with dizziness and found to be in symptomatic bradycardia. Per triage notes, she was initially in AFib with RVR but has been bradycardiac since then. 09/17/2022: Patient is seen in ICU room 9. With temporary transvenous pacing device that was placed yesterday in the bundle tier and labeler by Dr. Law. The patient seems upset that she is ill and not doing well but offers no other significant complaints at this time. Long discussion with the patient about the plans for and reasons for pacemaker implantation. Her understanding of this is not ideal Exam Narrative: General: Very pleasant elderly female in no apparent distress lying supine in bed, well developed, alert and oriented x3. No apparent distress, comfortable, pleasant, and cooperative. Speaking in full sentences Head: atraumatic, normocephalic Eyes: EOM intact, sclerae anicteric, conjunctivae unremarkable Ears/Nose: external inspection of ears and nose were grossly normal Mouth/Throat: oral mucosa pink and moist Neck: supple, normal range of motion, no jugular venous distention or carotid bruits, thyroid nonpalpable, trachea midline. Cardiac: Bradycardic, regular rate and rhythm, normal S1-S2, grade 2 to 3/6 systolic murmur right sternal border softer systolic murmur left lower sternal border, Lungs: Clear to auscultation bilaterally, no rales, wheezes, or rhonchi. Abdomen: Soft, nontender, nondistended, positive bowel sounds throughout. No appreciable hepatosplenomegaly, rebound guarding or rigidity noted. Abdominal aorta nonpalpable, no appreciable bruits. Extremities: Trace bilateral ankle edema, no clubbing, or cyanosis. Extremities warm and well perfused. Skin: Warm and dry without ecchymoses, rashes, and/or petechiae. Musculoskeletal: Muscle strength and tone intact throughout without obvious deformities. Vascular: Carotid upstrokes 2+ bilaterally, radial pulses 2+ bilaterally, dorsalis pedis pulses 2+ bilaterally Neurologic: Cranial nerves 2-12 grossly intact, examination grossly nonfocal Psychiatric: Mood calm and appropriate. Const: General: comfortable, no acute distress, alert and awake Orientation/consciousness: patient oriented x3 HENMT: Head: normal to inspection Eyes: General: appearance normal, both eyes and all related structures Pupils: Equal, round and reactive pupils present Neck: Neck: normal visual inspection, supple and no JVD Carotids: normal carotid upstroke Resp: Effort & Insp
--- NOTE | 2022-09-17 16:46 | PM.IMPN ---
Progress Note: A&P Assessment and Plan (1) Symptomatic bradycardia: Code(s): R00.1 - Bradycardia, unspecified Status: Acute Assessment and Plan: Hold metoprolol. Will also hold Eliquis in case she needs a pacemaker. Cardiology consulted. Orthostatics were severe and positive, Landen ramsay now added, did not respond much to have small bolus, concern that patient has significant systolic hypertension at rest, cardiology is considering adding midodrine, defer management to them 09/17/2022- interval history: 87-year-old female with history of proximal atrial fibrillation,? 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 (2) Atrial fibrillation with rapid ventricular response: Code(s): I48.91 - Unspecified atrial fibrillation Status: Acute Assessment and Plan: The patient was in AFib/RVR on arrival per triage not and she was having sensations of racing heart and palpitations prior to coming in. Since arrival however she has been a sinus bradycardia as detailed in HPI. Metoprolol on hold given bradycardia. (3) Hypertension: Qualifiers: Hypertension type: essential hypertension Qualified Code(s): I10 - Essential (primary) hypertension Code(s): I10 - Essential (primary) hypertension Status: Acute Assessment and Plan: Blood pressure shows isolated systolic hypertension. She did take her metoprolol this morning which of course is currently on hold. Hydralazine ordered p.r.n.. Will continue to monitor closely for now. Blood pressure reviewed 09/14 (4) Chronic kidney disease: Qualifiers: Chronic kidney disease stage: unspecified stage Qualified Code(s): N18.9 - Chronic kidney disease, unspecified Code(s): N18.9 - Chronic kidney disease, unspecified Status: Chronic Assessment and Plan: Creatinine is essentially stable on review of previous labs. (5) Abnormal urinalysis: Code(s): R82.90 - Unspecified abnormal findings in urine Status: Acute Assessment and Plan: Currently on Macrobid though with her renal function that will be changed to ceftriaxone. Urine culture pending. (6) Current use of alf anticoagulation: Code(s): Z79.01 - terminal supervisor (current) use of anticoagulants Status: Acute Assessment and Plan: No need for pacemaker per Cardiology (7) Hypothyroidism: Code(s): E03.9 - Hypothyroidism, unspecified Status: Acute Assessment and Plan: Continue levothyroxine, TSH within normal limits Plan DVT prophylaxis with eliquis GI prophylaxis not indicated Code status full code Subjective Date/time seen: 09/17/22 16:46 Interval history: 87-year-old female with AFib, heart failure, hypothyroidism and kidney disease is presenting with dizziness and found to be in symptomatic bradycardia. Per triage notes, she was initially in AFib with RVR but has been bradycardiac since then. No overnight events noted. No chest pain or shortness of breath. No nausea, vomiting or diarrhea. N
--- NOTE | 2022-09-17 17:47 | ECG_ITS ---
Measurements Intervals Dix Rate: 117 P: IA: 0 QRS: 46 QRSD: 96 T: -16 QT: 329 QTc: 461 Interpretive Statements ATRIAL FIBRILLATION WITH RAPID VENTRICULAR RESPONSE ST DEVIATION AND MODERATE T-WAVE ABNORMALITY, CONSIDER INFERIOR ISCHEMIA [-0.1+ mV T WAVE IN II/aVF] COMPARED TO ECG 09/12/2022 11:03:59 ATRIAL FIBRILLATION NOW PRESENT Electronically Signed On 09-18-2022 22:07:57 CDT by Joanne Moreno M.D.
[2022-09-17] MEDS: METOPROLOL TARTRATE INJ 5 MG/5 ML VIAL 2.5 MG IV PUSH (18:38)
[2022-09-17] MEDS: METOPROLOL TARTRATE 12.5 MG TABLET PO (21:04)
[2022-09-18] VITALS (27 sets, daily range): BP systolic 126–173; BP diastolic 61–97; PULSE 80–133; RESP 12–26; TEMP 37–37.7; O2SAT 95–100
[2022-09-18 04:44] LABS: Hematocrit 39.7 % (37.0-47.0); Hemoglobin 12.9 g/dL (12.0-15.0); Immature Platelet Fraction Pct 2.1 % (0.9-11.2); Mean Corpuscular HGB Conc 32.5 g/dl (32-36); Mean Corpuscular Hemoglobin 31.2 pg (26-34); Mean Corpuscular Volume 95.9 fl (80-100); Mean Platelet Volume 9.7 fl (7.4-10.4); Platelet Count Result 127 k/mm3 (150-375); Red Blood Count 4.14 M/mm3 (4.2-5.4); Red Cell Distribution Width 13.4 % (11.5-14.5); White Blood Count 7.6 K/mm3 (4.5-10.0)
[2022-09-18 05:14] LABS: Anion Gap 8 mmol/L (8-16); Blood Urea Nitrogen 32 mg/dL (7-17); Calcium 9.3 mg/dL (8.4-10.2); Carbon Dioxide 24 mmol/L (22-30); Chloride 101 mmol/L (98-107); Estimated Glomerular Filt Rate 31; Glucose 82 mg/dL (65-110); Magnesium 2.1 mg/dL (1.6-2.3); Potassium 4.7 mmol/L (3.4-5.0); Sodium 133 mmol/L (137-145)
[2022-09-18] MEDS: LEVOTHYROXINE SODIUM 50 MCG TABLET PO (06:28)
[2022-09-18] MEDS: HYDROmorphone HCL INJ (*CRX) 1 MG/ML SYR 0.5 MG IV PUSH ×3 (06:31→21:04)
[2022-09-18] MEDS: LACTATED RINGERS 500 ML 999 ML IV CONT (08:40)
[2022-09-18] MEDS: ACETAMINOPHEN 325 MG TABLET 650 MG PO (08:48)
[2022-09-18] MEDS: ENOXAPARIN 30 MG/0.3 ML SYRINGE SUB-Q (08:49)
[2022-09-18] MEDS: METOPROLOL TARTRATE 25 MG TABLET PO ×3 (08:50→22:38)
--- NOTE | 2022-09-18 08:50 | WPDINTPN ---
Progress Note: A&P Assessment and Plan (1) Symptomatic bradycardia: Code(s): R00.1 - Bradycardia, unspecified Status: Acute Assessment and Plan: Patient has had frequent sinus pauses. Currently in AFib 09/16 status post transfuse pacemaker placement Plan for permanent pacemaker placement by Cardiology once the anticoagulation wears off (2) Atrial fibrillation with rapid ventricular response: Code(s): I48.91 - Unspecified atrial fibrillation Status: Acute Assessment and Plan: Currently in AFib rate 100-120 Continue p.o. beta-bryan but will increase the dose Continue p.r.n. IV beta-bryan Anticoagulation is on hold for the procedure (3) Heart failure with preserved ejection fraction: Code(s): I50.30 - Unspecified diastolic (congestive) heart failure Status: Acute Assessment and Plan: Chest x-ray clear. Patient on room air Most recent echo 07/28 Summary ? 1. Complete two-dimensional, color flow and Doppler transthoracic echocardiogram is performed. ? 2. Left ventricular chamber dimension is normal. ? 3. Left ventricular systolic function is normal, estimated at 60-65%. ? 4. There is moderately increased left ventricular wall thickness. ? 5. The left ventricular diastolic function is abnormal. ? 6. Global longitudinal strain is abnormal at -9 %. ? 7. Left atrial chamber dimension is moderately enlarged. ? 8. Right atrial chamber dimension is mildly enlarged. ? 9. There is mild aortic valve stenosis with a peak velocity of 219 cm/s, mean gradient of 5 mmHg, and aortic valve area of 1.6 cm2. ? 10. There is mild aortic valve regurgitation. ? 11. There is moderate aortic valve calcification. ? 12. There is moderate to severe mitral valve regurgitation. ? 13. There is mild to moderate tricuspid valve regurgitation. ? 14. Mild pulmonary hypertension, estimated pulmonary arterial systolic pressure is 41 mmHg. ? 15. There is small pericardial effusion. ? 16. No echocardiographic evidence of tamponade physiology. ? 17. Strain analysis performed. (4) Hypothyroidism: Code(s): E03.9 - Hypothyroidism, unspecified Status: Acute Assessment and Plan: Continue Synthroid (5) Chronic kidney disease: Qualifiers: Chronic kidney disease stage: unspecified stage Qualified Code(s): N18.9 - Chronic kidney disease, unspecified Code(s): N18.9 - Chronic kidney disease, unspecified Status: Chronic Assessment and Plan: Patient creatinine has initially been stable at her baseline she has low urine output Patient urine output is on the lower side normal range. Her blood pressure and electrolytes are acceptable. Her p.o. intake is limited and I will give some IV fluid Monitor urine output electrolytes and creatinine (6) UTI (urinary tract infection): Qualifiers: Hematuria presence: with hematuria Urinary tract infection type: acute cystitis Qualified Code(s): N30.01 - Acute cystitis with hematuria Code(s): N39.0 - Urinary tract infection, site not specified Status: Acute Assessment and Plan: Urine cultures growing Proteus mirabilis Continue IV Rocephin (7) Musculoskeletal pain: Code(s): M79.18 - Myalgia, other site Status: Acute Assessment and Plan: P.r.n. analgesics Plan DVT prophylaxis -SCDs, start DVT prophylaxis Lovenox Nutrition -diet ordered Code Status - Full Code Subjective Date/time seen: 09/18/22 Overnight events reviewed. Afebrile She states she is pretty uncomfortable from laying in the bed flat she states she is having shoulder ache. She states that the pain is not new but is worse from laying still in the bed. Review of system was positive for nausea that she had last night but is currently resolved.. All other systems were reviewed and were negative She is on room air Urine output is acceptable although on the lower side Blood pressure is elevated this morning Telemet
[2022-09-18] MEDS: FERROUS SULFATE 324 MG TABLET PO ×2 (08:52→18:25)
[2022-09-18] MEDS: buPROPion HCL SR (12 HR) 150 MG TAB PO ×2 (08:52→20:15)
[2022-09-18] MEDS: CHOLECALCIFEROL 1,000 UNITS TABLET 2000 UNITS PO (08:52)
[2022-09-18] MEDS: traMADol HCL (*CRX) 50 MG TABLET PO ×2 (09:04→20:14)
[2022-09-18] MEDS: LACTATED RINGERS 1,000 ML 100 ML IV CONT ×2 (09:08→20:13)
[2022-09-18] MEDS: KETOROLAC 15 MG/ML VIAL (*BKC) IV PUSH (10:12)
[2022-09-18] MEDS: hydrALAZINE HCL 20 MG/ML VIAL 5 MG IV PUSH (10:17)
--- NOTE | 2022-09-18 13:15 | PM.IMPN ---
Progress Note: A&P Assessment and Plan (1) Symptomatic bradycardia: Code(s): R00.1 - Bradycardia, unspecified Status: Acute Assessment and Plan: Hold metoprolol. Will also hold Eliquis in case she needs a pacemaker. Cardiology consulted. Orthostatics were severe and positive, Landen ramsay now added, did not respond much to have small bolus, concern that patient has significant systolic hypertension at rest, cardiology is considering adding midodrine, defer management to them 09/18/2022- interval history: 87-year-old female with history of proximal atrial fibrillation,? 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 (2) Atrial fibrillation with rapid ventricular response: Code(s): I48.91 - Unspecified atrial fibrillation Status: Acute Assessment and Plan: The patient was in AFib/RVR on arrival per triage not and she was having sensations of racing heart and palpitations prior to coming in. Since arrival however she has been a sinus bradycardia as detailed in HPI. Metoprolol on hold given bradycardia. (3) Hypertension: Qualifiers: Hypertension type: essential hypertension Qualified Code(s): I10 - Essential (primary) hypertension Code(s): I10 - Essential (primary) hypertension Status: Acute Assessment and Plan: Blood pressure shows isolated systolic hypertension. She did take her metoprolol this morning which of course is currently on hold. Hydralazine ordered p.r.n.. Will continue to monitor closely for now. Blood pressure reviewed 09/14 (4) Chronic kidney disease: Qualifiers: Chronic kidney disease stage: unspecified stage Qualified Code(s): N18.9 - Chronic kidney disease, unspecified Code(s): N18.9 - Chronic kidney disease, unspecified Status: Chronic Assessment and Plan: Creatinine is essentially stable on review of previous labs. (5) Abnormal urinalysis: Code(s): R82.90 - Unspecified abnormal findings in urine Status: Acute Assessment and Plan: Currently on Macrobid though with her renal function that will be changed to ceftriaxone. Urine culture pending. (6) Current use of [facility] anticoagulation: Code(s): Z79.01 - [facility] (current) use of anticoagulants Status: Acute Assessment and Plan: No need for pacemaker per Cardiology (7) Hypothyroidism: Code(s): E03.9 - Hypothyroidism, unspecified Status: Acute Assessment and Plan: Continue levothyroxine, TSH within normal limits Plan DVT prophylaxis with eliquis GI prophylaxis not indicated Code status full code Subjective Date/time seen: 09/18/22 13:15 Interval history: 87-year-old female with AFib, heart failure, hypothyroidism and kidney disease is presenting with dizziness and found to be in symptomatic bradycardia. Per
[2022-09-18] MEDS: METOPROLOL TARTRATE INJ 5 MG/5 ML VIAL 2.5 MG IV PUSH ×3 (13:27→22:00)
[2022-09-18] MEDS: MELATONIN 3 MG TABLET PO (20:14)
[2022-09-18] MEDS: DOCUSATE SODIUM 100 MG CAPSULE PO (20:14)
[2022-09-18] MEDS: PRAVASTATIN SODIUM 20 MG TABLET 80 MG PO (20:15)
--- NOTE | 2022-09-18 21:47 | PM.PNCARD ---
Subjective Date/time seen: Follow-up for paroxysmal atrial fibrillation and tachy-clyde syndrome, status post transvenous pacemaker. Planning pacemaker implant on TuesdaySeptember 20. History of severe orthostasis and labile hypertension. 09/18/22 21:47 Objective Data Vital Signs Vital Signs: Vital Signs - 24 hr 09/17/22 22:01 09/18/22 00:00 09/17/22 22:00 Temperature 99.2 F Pulse Rate 89 89 Respiratory Rate 19 Blood Pressure 131/65 Pulse Oximetry 96 Oxygen Delivery Room Air 09/18/22 00:00 09/18/22 00:01 09/18/22 02:00 Temperature 99.2 F Pulse Rate 88 87 87 Respiratory Rate 26 H Blood Pressure 141/63 H Pulse Oximetry 96 Oxygen Delivery 09/18/22 02:01 09/18/22 04:00 09/18/22 04:00 Temperature 99.3 F 99.0 F Pulse Rate 87 87 Respiratory Rate 25 H 15 Blood Pressure 152/61 H 173/68 H Pulse Oximetry 97 100 Oxygen Delivery Room Air 09/18/22 04:45 09/18/22 05:00 09/18/22 04:00 Temperature 99.5 F 99.4 F Pulse Rate 80 80 84 Respiratory Rate 14 21 H Blood Pressure 169/62 H 162/69 H Pulse Oximetry 98 98 Oxygen Delivery 09/18/22 06:00 09/18/22 06:28 09/18/22 08:00 Temperature 99.1 F 98.8 F Pulse Rate 81 81 112 H Respiratory Rate 15 19 Blood Pressure 154/66 H 163/89 H Pulse Oximetry 99 97 Oxygen Delivery 09/18/22 08:50 09/18/22 10:00 09/18/22 08:00 Temperature 98.6 F Pulse Rate 104 H 120 H 113 H Respiratory Rate 20 Blood Pressure 161/97 H Pulse Oximetry 97 Oxygen Delivery 09/18/22 08:00 09/18/22 10:00 09/18/22 12:00 Temperature Pulse Rate 102 H Respiratory Rate Blood Pressure Pulse Oximetry Oxygen Delivery Room Air Room Air 09/18/22 12:00 09/18/22 12:00 09/18/22 13:27 Temperature 98.7 F Pulse Rate 133 H 111 H 118 H Respiratory Rate 13 Blood Pressure 138/74 Pulse Oximetry 98 Oxygen Delivery 09/18/22 13:25 09/18/22 14:00 09/18/22 14:00 Temperature 98.7 F Pulse Rate 118 H 110 H 110 H Respiratory Rate 19 Blood Pressure 130/95 H Pulse Oximetry 97 Oxygen Delivery 09/18/22 18:00 09/18/22 16:00 09/18/22 16:00 Temperature 99.2 F Pulse Rate 115 H 108 H Respiratory Rate 14 Blood Pressure 136/90 Pulse Oximetry 95 Oxygen Delivery Room Air 09/18/22 18:00 09/18/22 20:16 09/18/22 21:03 Temperature Pulse Rate 115 H 114 H 125 H Respiratory Rate Blood Pressure Pulse Oximetry Oxygen Delivery 09/18/22 20:00 09/18/22 20:01 09/18/22 21:01 Temperature 99.9 F H 99.8 F H Pulse Rate 121 H 112 H Respiratory Rate 12 15 Blood Pressure 141/76 H 128/91 H Pulse Oximetry 97 98 Oxygen Delivery Room Air 09/18/22 20:00 Temperature Pulse Rate 122 H Respiratory Rate Blood Pressure Pulse Oximetry Oxygen Delivery Intake/Output Intake/Output: Intake & Output 09/15/22 09/16/22 09/17/22 09/18/22 23:59 23:59 23:59 23:59 Intake Total 1270 160 237 7440 Output Total 1076 277 851 3537 Balance 194 -25 190 1595 Meds/Results Medications: Active Medications Generic Name Dose Route Start Last Admin Trade Name Freq PRN Reason Stop Dose Admin Acetaminophen 650 mg 09/14/22 13:59 09/18/22 08:48 Acetaminophen 325 Mg Tablet PO 650 mg Q4H PRN Administration Mild Pain (1-3) or Fever Bupropion HCl 150 mg 09/12/22 21:30 09/18/22 20:15 Bupropion Hcl Sr (12 Hr) 150 Mg Tab PO 150 mg Q12HR RUY Administration Docusate Sodium 100 mg 09/13/22 21:33 09/18/22 20:14 Docusate Sodium 100 Mg Capsule PO 100 mg Q12H PRN Administration Constipation Enoxaparin Sodium 30 mg 09/17/22 09:00 09/18/22 08:49 Enoxaparin 30 Mg/0.3 Ml Syringe SUB-Q 09/19/22 23:55 30 mg DAILY RUY Administration Ferrous Sulfate 324 mg 09/13/22 08:00 09/18/22 18:25 Ferrous Sulfate 324 Mg Tablet PO 324 mg BIDWM RUY Administration Hydralazine HCl 5 mg 09/12/22 19:10 09/17/22 15:26 Hydralazine Hcl 20 Mg/Ml Vial IV PUSH
[2022-09-19] VITALS (74 sets, daily range): BP systolic 92–154; BP diastolic 36–98; PULSE 83–142; RESP 13–26; TEMP 36.3–38.2; O2SAT 91–99
[2022-09-19] MEDS: METOPROLOL TARTRATE INJ 5 MG/5 ML VIAL IV PUSH ×2 (00:19→03:26)
[2022-09-19] MEDS: HYDROmorphone HCL INJ (*CRX) 1 MG/ML SYR 0.5 MG IV PUSH ×4 (00:20→23:18)
[2022-09-19 04:41] LABS: Hematocrit 37.7 % (37.0-47.0); Hemoglobin 12.3 g/dL (12.0-15.0); Immature Platelet Fraction Pct 2.7 % (0.9-11.2); Mean Corpuscular HGB Conc 32.6 g/dl (32-36); Mean Corpuscular Hemoglobin 31.3 pg (26-34); Mean Corpuscular Volume 95.9 fl (80-100); Mean Platelet Volume 9.9 fl (7.4-10.4); Platelet Count Result 116 k/mm3 (150-375); Red Blood Count 3.93 M/mm3 (4.2-5.4); Red Cell Distribution Width 13.2 % (11.5-14.5); White Blood Count 9.6 K/mm3 (4.5-10.0)
[2022-09-19 04:49] LABS: Anion Gap 3 mmol/L (8-16); Blood Urea Nitrogen 27 mg/dL (7-17); Calcium 8.6 mg/dL (8.4-10.2); Carbon Dioxide 27 mmol/L (22-30); Chloride 100 mmol/L (98-107); Estimated Glomerular Filt Rate 39; Glucose 85 mg/dL (65-110); Magnesium 1.9 mg/dL (1.6-2.3); Potassium 4.9 mmol/L (3.4-5.0); Sodium 130 mmol/L (137-145)
[2022-09-19] MEDS: oxyCODONE/ACETAMINOPHEN (*CRX) 5-325 MG TABLET 1 TABLET PO ×2 (06:47→15:18)
[2022-09-19] MEDS: LACTATED RINGERS 1,000 ML 100 ML IV CONT (06:47)
[2022-09-19] MEDS: METOPROLOL TARTRATE 25 MG TABLET PO ×3 (06:48→22:05)
[2022-09-19] MEDS: LEVOTHYROXINE SODIUM 50 MCG TABLET PO (06:48)
[2022-09-19] MEDS: KETOROLAC 15 MG/ML VIAL (*BKC) IV PUSH (08:27)
[2022-09-19] MEDS: CHOLECALCIFEROL 1,000 UNITS TABLET 2000 UNITS PO (08:27)
[2022-09-19] MEDS: buPROPion HCL SR (12 HR) 150 MG TAB PO ×2 (08:27→22:04)
[2022-09-19] MEDS: FERROUS SULFATE 324 MG TABLET PO ×2 (08:27→17:36)
[2022-09-19] MEDS: ENOXAPARIN 30 MG/0.3 ML SYRINGE SUB-Q (08:28)
--- NOTE | 2022-09-19 09:17 | WPDINTPN ---
Progress Note: A&P Assessment and Plan (1) Symptomatic bradycardia: Code(s): R00.1 - Bradycardia, unspecified Status: Acute Assessment and Plan: Patient has had frequent sinus pauses. Currently in AFib 09/16 status post transfuse pacemaker placement Plan for permanent pacemaker placement by Cardiology once the anticoagulation wears off (2) Atrial fibrillation with rapid ventricular response: Code(s): I48.91 - Unspecified atrial fibrillation Status: Acute Assessment and Plan: Currently in AFib rate 90 Continue p.o. beta-bryan Continue p.r.n. IV beta-bryan Anticoagulation is on hold for the procedure (3) Heart failure with preserved ejection fraction: Code(s): I50.30 - Unspecified diastolic (congestive) heart failure Status: Acute Assessment and Plan: Chest x-ray clear. Patient on room air Most recent echo 07/28 Summary ? 1. Complete two-dimensional, color flow and Doppler transthoracic echocardiogram is performed. ? 2. Left ventricular chamber dimension is normal. ? 3. Left ventricular systolic function is normal, estimated at 60-65%. ? 4. There is moderately increased left ventricular wall thickness. ? 5. The left ventricular diastolic function is abnormal. ? 6. Global longitudinal strain is abnormal at -9 %. ? 7. Left atrial chamber dimension is moderately enlarged. ? 8. Right atrial chamber dimension is mildly enlarged. ? 9. There is mild aortic valve stenosis with a peak velocity of 219 cm/s, mean gradient of 5 mmHg, and aortic valve area of 1.6 cm2. ? 10. There is mild aortic valve regurgitation. ? 11. There is moderate aortic valve calcification. ? 12. There is moderate to severe mitral valve regurgitation. ? 13. There is mild to moderate tricuspid valve regurgitation. ? 14. Mild pulmonary hypertension, estimated pulmonary arterial systolic pressure is 41 mmHg. ? 15. There is small pericardial effusion. ? 16. No echocardiographic evidence of tamponade physiology. ? 17. Strain analysis performed. (4) Hypothyroidism: Code(s): E03.9 - Hypothyroidism, unspecified Status: Acute Assessment and Plan: Continue Synthroid (5) Chronic kidney disease: Qualifiers: Chronic kidney disease stage: unspecified stage Qualified Code(s): N18.9 - Chronic kidney disease, unspecified Code(s): N18.9 - Chronic kidney disease, unspecified Status: Chronic Assessment and Plan: Patient creatinine has initially been stable at her baseline she has low urine output Her urine output was on the lower side although Her blood pressure and electrolytes are acceptable. Her p.o. intake is limited hence patient was given IV fluids and creatinine has improved to 1.3 and urine output has improved Monitor urine output electrolytes and creatinine Will hold further fluids today and re-evaluate (6) UTI (urinary tract infection): Qualifiers: Hematuria presence: with hematuria Urinary tract infection type: acute cystitis Qualified Code(s): N30.01 - Acute cystitis with hematuria Code(s): N39.0 - Urinary tract infection, site not specified Status: Acute Assessment and Plan: Urine cultures growing Proteus mirabilis Continue IV Rocephin (7) Shoulder pain: Code(s): M25.519 - Pain in unspecified shoulder Status: Acute Assessment and Plan: Muscle skeletal pain secondary to arthritis CT shows IMPRESSION: 1. 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 2. Several small juxta articular erosions at the right acromioclavicular joint and additional small erosions at the intertubercular groove and immediately adjacent lesser and greater tuberosities. These could be degenerative in etiology but location and appearance also suggest possibility of gout or other crystal arthropathy. No redness or swelling of the joint Will exam Continue p.r.n
--- NOTE | 2022-09-19 12:19 | PM.IMPN ---
Progress Note: A&P Assessment and Plan (1) Symptomatic bradycardia: Code(s): R00.1 - Bradycardia, unspecified Status: Acute Assessment and Plan: Hold metoprolol. Will also hold Eliquis in case she needs a pacemaker. Cardiology consulted. Orthostatics were severe and positive, Landen hose now added, did not respond much to have small bolus, concern that patient has significant systolic hypertension at rest, cardiology is considering adding midodrine, defer management to them Hold metoprolol. Will also hold Eliquis in case she needs a pacemaker. Cardiology consulted. Orthostatics were severe and positive, Landen hose now added, did not respond much to have small bolus, concern that patient has significant systolic hypertension at rest, cardiology is considering adding midodrine, defer management to them 09/19/2022- interval history: 87-year-old female with history of proximal atrial fibrillation,? 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 on 09/18 patient complained of neck pain and pain radiating to her right arm and feeling of numbness sr. social media & mobile manager had order CT scan of the cervical spine and right shoulder pending shows patient has severe cervical spondylosis, chronic appearing T11 compression fracture as well as osteoarthritis and cervical spine and shoulder also suspicious for gout, once clinically stable patient will benefit consulting orthopedic surgeon and further recommendation to follow. (2) Atrial fibrillation with rapid ventricular response: Code(s): I48.91 - Unspecified atrial fibrillation Status: Acute Assessment and Plan: The patient was in AFib/RVR on arrival per triage not and she was having sensations of racing heart and palpitations prior to coming in. Since arrival however she has been a sinus bradycardia as detailed in HPI. Metoprolol on hold given bradycardia. (3) Hypertension: Qualifiers: Hypertension type: essential hypertension Qualified Code(s): I10 - Essential (primary) hypertension Code(s): I10 - Essential (primary) hypertension Status: Acute Assessment and Plan: Blood pressure shows isolated systolic hypertension. She did take her metoprolol this morning which of course is currently on hold. Hydralazine ordered p.r.n.. Will continue to monitor closely for now. Blood pressure reviewed 09/14 (4) Chronic kidney disease: Qualifiers: Chronic kidney disease stage: unspecified stage Qualified Code(s): N18.9 - Chronic kidney disease, unspecified Code(s): N18.9 - Chronic kidney disease, unspecified Status: Chronic Assessment and Plan: Creatinine is essentially stable on review of previous labs. (5) Abnormal urinalysis: Code(s): R82.90 - Unspecified abnormal findings in urine Status: Acute Assessment and Plan: Currently on Macrobid though with her renal function that will be changed to ceftriaxone. Urine culture pending. (6) Current use of [facility] anticoagulation: Code(s): Z79.01 - [facility] (current) use of antic
--- NOTE | 2022-09-19 13:18 | PM.PNCARD ---
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 -- Permanent pacemaker tomorrow, likely the Micra pacemaker, by Dr. Chamberlain -- patient's questions answered (2) Atrial fibrillation with rapid ventricular response: Code(s): I48.91 - Unspecified atrial fibrillation Status: Acute Assessment and Plan: paroxysmal atrial fibrillation, has been in AFib the last few days, generally RVR but better controlled with higher dose of beta-bryan. -- Eliquis on hold for the permanent pacemaker implant. (3) Low grade fever: Code(s): R50.9 - Fever, unspecified Status: Acute Assessment and Plan: Being treated for UTI. White count is normal. Has a Bui catheter. --DC Bui in a.m. --Check blood cultures Subjective Date/time seen: Tachy-clyde syndrome, AFib RVR with symptomatic pauses, status post transvenous pacemaker. History of severe orthostasis. Echo EF 60-65%, strain -9%, mild aortic stenosis, moderate to severe MR, [id number] TR 09/19/22 13:18 Patient continues in atrial fibrillation, yesterday with RVR. I increased her beta-bryan. Heart rate is better today, generally in the 90s. Occasionally ventricular paces. Low-grade temp noted, being treated for UTI. pacemaker check, threshold is less than 1 mV. Review of Systems Review of Systems: No chest pain or shortness of breath. Uncomfortable arthritis. No GI problems or bleeding. Somewhat anxious at times. Exam Const: General: cooperative and comfortable; No confusion Orientation/consciousness: oriented to person, patient oriented x3 and No confusion Other: Frail elderly lady, supine, alert no distress HENMT: Mouth: Yes moist mucous membranes Eyes: General: appearance normal, both eyes and all related structures Neck: Neck: supple Resp: Effort & Inspection: normal respiratory effort Auscultation: clear to auscultation bilaterally Cardio: Rate: regular rate Rhythm: regular rhythm and abnormal rhythm irregularly irregular GI: Inspection: normal to inspection GI Palp: No abdominal tenderness Skin: Other: temporary pacemaker in the right femoral area, no ecchymosis or bleeding. Neuro: General: oriented to person, patient oriented x3 and No confusion Extrem: Right lower extremity: no edema Left lower extremity: no edema Psych: Appearance: grossly normal Mental Status: mental status grossly normal Other: Anxious at times Objective Data Vital Signs Vital Signs: Vital Signs - 24 hr 09/18/22 13:27 09/18/22 13:25 09/18/22 14:00 Temperature Pulse Rate 118 H 118 H 110 H Respiratory Rate Blood Pressure Pulse Oximetry Oxygen Delivery 09/18/22 14:00 09/18/22 18:00 09/18/22 16:00 Temperature 98.7 F 99.2 F Pulse Rate 110 H 115 H 108 H Respiratory Rate 19 14 Blood Pressure 130/95 H 136/90 Pulse Oximetry 97 95 Oxygen Delivery 09/18/22 16:00 09/18/22 18:00 09/18/22 20:16 Temperature Pulse Rate 115 H 114 H Respiratory Rate Blood Pressure Pulse Oximetry Oxygen Delivery Room Air 09/18/22 21:03 09/18/22 20:00 09/18/22 20:01 Temperature 99.9 F H Pulse Rate 125 H 121 H Respiratory Rate 12 Blood Pressure 141/76 H Pulse Oximetry 97 Oxygen Delivery Room Air 09/18/22 21:01 09/18/22 20:00 09/18/22 22:00 Temperature 99.8 F H Pulse Rate 112 H 122 H 129 H Respiratory Rate 15 Blood Pressure 128/91 H Pulse Oximetry 98 Oxygen Delivery 09/18/22 22:38 09/18/22 22:00 09/18/22 22:01 Temperature 99.6 F Pulse Rate 119 H 115 H 115 H Respiratory Rate 25 H Blood Pressure 156/83 H Pulse Oximetry 95 Oxygen Delivery 09/18/22 23:01 09/19/22 00:19 09/19/22 00:00 Temperature 99.4 F Pulse Rate 121 H 126 H Respiratory Rate 21 H Blo
[2022-09-19] MEDS: ACETAMINOPHEN 325 MG TABLET 650 MG PO (18:23)
[2022-09-19] MEDS: PRAVASTATIN SODIUM 20 MG TABLET 80 MG PO (22:04)
[2022-09-19] MEDS: traMADol HCL (*CRX) 50 MG TABLET PO (22:05)
[2022-09-19] MEDS: MELATONIN 3 MG TABLET PO (22:05)
[2022-09-20] VITALS (20 sets, daily range): BP systolic 124–177; BP diastolic 68–152; PULSE 91–139; RESP 16–26; TEMP 36.7–38; O2SAT 93–100; BMI 26.4
[2022-09-20 04:36] LABS: Hematocrit 39.7 % (37.0-47.0); Hemoglobin 13.1 g/dL (12.0-15.0); Immature Platelet Fraction Pct 3.4 % (0.9-11.2); Mean Corpuscular Hemoglobin 31.6 pg (26-34); Mean Corpuscular Volume 95.7 fl (80-100); Platelet Count Result 108 k/mm3 (150-375); Red Blood Count 4.15 M/mm3 (4.2-5.4); Red Cell Distribution Width 13.2 % (11.5-14.5); White Blood Count 8.6 K/mm3 (4.5-10.0)
[2022-09-20 04:46] LABS: Anion Gap 7 mmol/L (8-16); Blood Urea Nitrogen 28 mg/dL (7-17); Carbon Dioxide 25 mmol/L (22-30); Chloride 100 mmol/L (98-107); Estimated Glomerular Filt Rate 36; Glucose 78 mg/dL (65-110); Potassium 4.3 mmol/L (3.4-5.0); Sodium 132 mmol/L (137-145)
[2022-09-20] MEDS: METOPROLOL TARTRATE 25 MG TABLET PO (05:32)
[2022-09-20] MEDS: LEVOTHYROXINE SODIUM 50 MCG TABLET PO (05:39)
[2022-09-20 08:09] LABS: Procalcitonin 0.3 ng/mL
[2022-09-20] MEDS: KETOROLAC 15 MG/ML VIAL (*BKC) IV PUSH ×2 (08:14→13:47)
--- NOTE | 2022-09-20 08:44 | WPDINTPN ---
Progress Note: A&P Assessment and Plan (1) Symptomatic bradycardia: Code(s): R00.1 - Bradycardia, unspecified Status: Acute Assessment and Plan: Patient has had frequent sinus pauses. Currently in AFib 09/16 status post transfuse pacemaker placement Permanent pacemaker related as patient was on anticoagulation. Plan for permanent pacemaker placement by Cardiology (2) Atrial fibrillation with rapid ventricular response: Code(s): I48.91 - Unspecified atrial fibrillation Status: Acute Assessment and Plan: Currently in AFib rate 90 Continue p.o. beta-bryan she will be continued Continue p.r.n. IV beta-bryan Anticoagulation is on hold for the procedure (3) Heart failure with preserved ejection fraction: Code(s): I50.30 - Unspecified diastolic (congestive) heart failure Status: Acute Assessment and Plan: Chest x-ray clear. Patient on room air Most recent echo 07/28 Summary ? 1. Complete two-dimensional, color flow and Doppler transthoracic echocardiogram is performed. ? 2. Left ventricular chamber dimension is normal. ? 3. Left ventricular systolic function is normal, estimated at 60-65%. ? 4. There is moderately increased left ventricular wall thickness. ? 5. The left ventricular diastolic function is abnormal. ? 6. Global longitudinal strain is abnormal at -9 %. ? 7. Left atrial chamber dimension is moderately enlarged. ? 8. Right atrial chamber dimension is mildly enlarged. ? 9. There is mild aortic valve stenosis with a peak velocity of 219 cm/s, mean gradient of 5 mmHg, and aortic valve area of 1.6 cm2. ? 10. There is mild aortic valve regurgitation. ? 11. There is moderate aortic valve calcification. ? 12. There is moderate to severe mitral valve regurgitation. ? 13. There is mild to moderate tricuspid valve regurgitation. ? 14. Mild pulmonary hypertension, estimated pulmonary arterial systolic pressure is 41 mmHg. ? 15. There is small pericardial effusion. ? 16. No echocardiographic evidence of tamponade physiology. ? 17. Strain analysis performed. (4) Hypothyroidism: Code(s): E03.9 - Hypothyroidism, unspecified Status: Acute Assessment and Plan: Continue Synthroid (5) Chronic kidney disease: Qualifiers: Chronic kidney disease stage: unspecified stage Qualified Code(s): N18.9 - Chronic kidney disease, unspecified Code(s): N18.9 - Chronic kidney disease, unspecified Status: Chronic Assessment and Plan: Patient creatinine has initially been stable at her baseline she has low urine output Her urine output was on the lower side although Her blood pressure and electrolytes are acceptable. Her p.o. intake is limited hence patient was given IV fluids and creatinine improved to 1.3 and urine output has improved Creatinine stable at 1.4 monitor urine output electrolytes and creatinine Will hold further fluids today and re-evaluate (6) UTI (urinary tract infection): Qualifiers: Hematuria presence: with hematuria Urinary tract infection type: acute cystitis Qualified Code(s): N30.01 - Acute cystitis with hematuria Code(s): N39.0 - Urinary tract infection, site not specified Status: Acute Assessment and Plan: Urine cultures growing Proteus mirabilis Continue IV Rocephin (7) Shoulder pain: Code(s): M25.519 - Pain in unspecified shoulder Status: Acute Assessment and Plan: Muscle skeletal pain secondary to arthritis CT shows IMPRESSION: 1. 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 2. Several small juxta articular erosions at the right acromioclavicular joint and additional small erosions at the intertubercular groove and immediately adjacent lesser and greater tuberosities. These could be degenerative in etiology but location and appearance also suggest possibility of gout or other crystal arthr
--- NOTE | 2022-09-20 11:30 | WPDMODSED ---
Moderate Sedation Note-Pt Data Patient Data Diagnosis: symptomatic bradycardia with paroxysmal atrial fib and sick sinus syndrome Present Complaint: no complaint this morning Procedure to be performed/Plan: permanent leadless pacemaker implantation Allergies Allergy/AdvReac Type Severity Reaction Status Date / Time hydrocodone AdvReac Intermediate Nausea Verified 09/12/22 18:00 codeine AdvReac Mild Nausea Verified 09/12/22 18:00 heparin AdvReac Mild Nausea Verified 09/12/22 18:00 Home Medications Medication Instructions Recorded Confirmed Type bupropion HCl 150 mg tablet,12 hr 150 mg PO BID 11/19/19 09/12/22 History sustained-release cholecalciferol (vitamin D3) 50 50 mcg PO DAILY 11/19/19 09/12/22 History mcg (2,000 unit) capsule (Vitamin D3) levothyroxine 50 mcg tablet 50 mcg PO QAM 11/19/19 09/12/22 History pravastatin 80 mg tablet 80 mg PO HS 11/19/19 09/13/22 History apixaban 2.5 mg tablet (Eliquis) 2.5 mg PO Q12HR #60 tabs 07/24/21 09/12/22 Rx ferrous sulfate 325 mg (65 mg 325 mg PO BID #60 tabs 08/06/21 09/12/22 Rx iron) tablet metoprolol tartrate 50 mg tablet 50 mg PO Q12H 12/28/21 09/14/22 History tramadol 50 mg tablet 50 mg PO Q6H PRN pain #20 tabs 07/30/22 09/12/22 Rx nitrofurantoin 100 mg PO Q12H 09/12/22 09/14/22 History monohydrate/macrocrystals 100 mg capsule Current Medications: Active Medications Acetaminophen (Acetaminophen 325 Mg Tablet) 650 mg PO Q4H PRN PRN Reason: Mild Pain (1-3) or Fever Last Admin: 09/19/22 18:23 Dose: 650 mg Bupropion HCl (Bupropion Hcl Sr (12 Hr) 150 Mg Tab) 150 mg PO Q12HR [facility] Last Admin: 09/19/22 22:04 Dose: 150 mg Docusate Sodium (Docusate Sodium 100 Mg Capsule) 100 mg PO Q12H PRN PRN Reason: Constipation Last Admin: 09/18/22 20:14 Dose: 100 mg Ferrous Sulfate (Ferrous Sulfate 324 Mg Tablet) 324 mg PO BIDWM [facility] Last Admin: 09/19/22 17:36 Dose: 324 mg Hydralazine HCl (Hydralazine Hcl 20 Mg/Ml Vial) 5 mg IV PUSH Q6H PRN PRN Reason: SBP > 165 or DBP > 105 Last Admin: 09/17/22 15:26 Dose: 5 mg Hydralazine HCl (Hydralazine Hcl 20 Mg/Ml Vial) 5 mg IV PUSH Q4H PRN PRN Reason: Blood Pressure - High Last Admin: 09/18/22 10:17 Dose: 5 mg Hydromorphone HCl (Hydromorphone Hcl Inj (*Crx) 1 Mg/Ml Syr) 0.5 mg IV PUSH Q3H PRN PRN Reason: Pain Rated 7-10 Last Admin: 09/19/22 23:18 Dose: 0.5 mg Ceftriaxone Sodium (Rocephin 1 Gm/Ns 50 Ml) 1 gm in 50 mls @ 100 mls/hr IVPB NOON [facility] Last Infusion: 09/19/22 15:26 Dose: Infused Ketorolac Tromethamine (Ketorolac 15 Mg/Ml Vial (*Bkc)) 15 mg IV PUSH Q6H PRN PRN Reason: Pain Rated 4-6 Last Admin: 09/20/22 08:14 Dose: 15 mg Levothyroxine Sodium (Levothyroxine Sodium 50 Mcg Tablet) 50 mcg PO DAILY@0630 [facility] Last Admin: 09/20/22 05:39 Dose: 50 mcg Melatonin (Melatonin 3 Mg Tablet) 3 mg PO HS PRN PRN Reason: Insomnia Last Admin: 09/19/22 22:05 Dose: 3 mg Metoprolol Tartrate (Metoprolol Tartrate 25 Mg Tablet) 25 mg PO Q8HR [facility] Last Admin: 09/20/22 05:32 Dose: 25 mg Metoprolol Tartrate (Metoprolol Tartrate Inj 5 Mg/5 Ml Vial) 5 mg IV PUSH Q1H PRN PRN Reason: for HR > 115 Last Admin: 09/19/22 03:26 Dose: 5 mg Oxycodone/Acetaminophen (Oxycodone/Acetaminophen (*Crx) 5-325 Mg Tablet) 1 tablet PO Q4H PRN PRN Reason: Pain Rated 4-6 Last Admin: 09/19/22 15:18 Dose: 1 tablet Pravastatin Sodium (Pravastatin Sodium 20 Mg Tablet) 80 mg PO HS RUY Last Admin: 09/19/22 22:04 Dose: 80 mg Quetiapine Fumarate (Quetiapine Fumarate 25 Mg Tablet) 25 mg PO HS RUY Tramadol HCl (Tramadol Hcl (*Crx) 50 Mg Tablet) 50 mg PO Q6H PRN PRN Reason: Pain Rated 4-6 Last Admin: 09/19/22 22:05 Dose: 50 mg Vitamin D (Cholecalciferol 1,000 Units Tablet) 2,000 units PO DAILY [facility] Last Admin: 09/19/22 08:27 Dose: 2,000 units Sedation/Anesthesia: No previous sedation/anesthesia problems (including family history). PMFSH Past Medical History Medical History
--- NOTE | 2022-09-20 12:17 | WPDCARDPROC ---
Cardiac Cath Procedure Note Date of procedure:: 09/20/22 Performing physician:: Aurelio Chamberlain MD Indication:: symptomatic bradycardia with paroxysmal atrial fibrillation Brief clinical history:: this is an 87-year-old woman with a history of paroxysmal atrial fibrillation admitted to the hospital with symptomatic bradycardia. She has been seen to have AFib with RVR as well as sinus rhythm with symptomatic bradycardia including significant asystolic pauses. The patient underwent implantation of a temporary transvenous wire last week after withdrawal from anticoagulation permanent pacemaker has been recommended and scheduled for today. Procedure Procedure performed:: Withdrawal of transvenous pacemaker lead implantation of Medtronic Micra permanent Lead less pacemaker device Sedation/Medication given:: fentanyl 25 mg Versed 2 mg case start time 11:50 a.m. case end time 12:11 p.m. sedation provided by Nery Maher RN, trained observer Access site:: right femoral vein Estimated blood loss:: 30 cc Procedure note:: patient was brought to the cardiac catheterization lab in the postabsorptive state and placed on the table in supine position. The temporary pacemaker dressing was removed and the temporary wire was removed from the right ventricle. The area was then prepped with ChloraPrep leaving the access sheath in place. Following this I administered 1% lidocaine around the existing sheath and placed the Super Stiff wire into the venous circulation under fluoroscopic visualization through the right atrium and up into the SVC. Following this the sheath was removed and pre-dilated with a 22 Persian dilator. This dilator was then removed and the micro insertion sheath and dilator were advanced into the venous circulation with visualization fluoroscopic lead to the level of the right atrium. The dilator and Super Stiff wire were then removed leaving the micra sheath in position. This was then hooked to saline infusion. Following this the Micra delivery system was prepared affect breath separate saline flush. When the flush of the sheath was confirmed the micro device was withdrawn into the delivery system. This was then placed through the delivery sheath up to the right atrial position. The sheath was then withdrawn into the IVC. Using the during dual the micro delivery system was advanced across the tricuspid valve annulus into the right ventricle. Using the SYRIAN position and injection of contrast septal position was confirmed. Using the PRADHAN position a pressure was placed against the septum and the pacemaker was then delivered into the septal position. The delivery sheath was then withdrawn slightly. Appropriate pacing and sensing for as was demonstrated. Following this under fluoroscopic visualization using the tethers the flight tension was made against the micro device and the tines were fixed into position. The catheters were then cut and withdrawn. The device was then deployed into the right ventricular septum. Appropriate pacing and sensing performance was again demonstrated. The patient was in atrial fibrillation with moderately rapid ventricular response during the procedure so we had to pace at a rapid rate to test the device. Following this the delivery system was removed and after this the figure of 8 stitch was made over the venous insertion site. Manual pressure is being held at the insertion site the patient tolerated the procedure well and there were no apparent complications. Findings:: The patient received a Medtronic Micra pacemaker model [id number], serial number [id number]. the R-waves are sensed at 20 mV threshold 0.5 volts at 0.24 millisecond impedance 910 Ohms. Device is programmed in the DDD mode lower rate limit 60 upper rate limit 120. Conclusion:: uncomplicated implantation of Medtronic Micra AV leadless pacemaker system for treatment of symptomatic bradycardia and sinus pauses in this 87-
--- NOTE | 2022-09-20 13:09 | SUR.OPER ---
Bedside report given to AUDITING CODER Ave. gauze/tegaderm and Fem stop applied in ammunition assembly laborer by Дмитрий Souza, RT. Fem stop not inflated. patient had no hematoma or bleeding to right groin at time ammunition assembly laborer RN dropped patient off to ICU. patient had right leg immobilizer still on from prior to procedure at the end of procedure.
[2022-09-20] MEDS: CHOLECALCIFEROL 1,000 UNITS TABLET 2000 UNITS PO (13:46)
[2022-09-20] MEDS: SOTALOL HCL 80 MG TABLET PO ×2 (13:46→21:52)
[2022-09-20] MEDS: FERROUS SULFATE 324 MG TABLET PO ×2 (13:46→16:53)
[2022-09-20] MEDS: buPROPion HCL SR (12 HR) 150 MG TAB PO ×2 (13:46→21:53)
[2022-09-20] MEDS: SODIUM CHLORIDE 0.9% IV 1,000 ML 50 ML IV CONT (14:37)
--- NOTE | 2022-09-20 16:00 | ECG_ITS ---
Measurements Intervals [place] Rate: 121 P: PA: 0 QRS: 46 QRSD: 96 T: -77 QT: 367 QTc: 522 Interpretive Statements ATRIAL FIBRILLATION WITH RAPID VENTRICULAR RESPONSE NONSPECIFIC ST AND T-WAVE ABNORMALITY ABNORMAL ECG COMPARED TO ECG 09/17/2022 18:05:00 NO SIGNIFICANT CHANGES Electronically Signed On 09-21-2022 7:01:38 CDT by Aurelio Chamberlain M.D.
--- NOTE | 2022-09-20 16:04 | PM.IMPN ---
Progress Note: A&P Assessment and Plan (1) Symptomatic bradycardia: Code(s): R00.1 - Bradycardia, unspecified Status: Acute Assessment and Plan: Hold metoprolol. Will also hold Eliquis in case she needs a pacemaker. Cardiology consulted. Orthostatics were severe and positive, Landen hose now added, did not respond much to have small bolus, concern that patient has significant systolic hypertension at rest, cardiology is considering adding midodrine, defer management to them Hold metoprolol. Will also hold Eliquis in case she needs a pacemaker. Cardiology consulted. Orthostatics were severe and positive, Landen hose now added, did not respond much to have small bolus, concern that patient has significant systolic hypertension at rest, cardiology is considering adding midodrine, defer management to them 09/20/2022- interval history: 87-year-old female with history of proximal atrial fibrillation,? 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 on 09/18 patient complained of neck pain and pain radiating to her right arm and feeling of numbness nurse monitoring had order CT scan of the cervical spine and right shoulder pending shows patient has severe cervical spondylosis, chronic appearing T11 compression fracture as well as osteoarthritis and cervical spine and shoulder also suspicious for gout, once clinically stable patient will benefit consulting orthopedic surgeon as outpatient and further recommendation to follow. (2) Atrial fibrillation with rapid ventricular response: Code(s): I48.91 - Unspecified atrial fibrillation Status: Acute Assessment and Plan: The patient was in AFib/RVR on arrival per triage not and she was having sensations of racing heart and palpitations prior to coming in. Since arrival however she has been a sinus bradycardia as detailed in HPI. Metoprolol on hold given bradycardia. (3) Hypertension: Qualifiers: Hypertension type: essential hypertension Qualified Code(s): I10 - Essential (primary) hypertension Code(s): I10 - Essential (primary) hypertension Status: Acute Assessment and Plan: Blood pressure shows isolated systolic hypertension. She did take her metoprolol this morning which of course is currently on hold. Hydralazine ordered p.r.n.. Will continue to monitor closely for now. Blood pressure reviewed 09/14 (4) Chronic kidney disease: Qualifiers: Chronic kidney disease stage: unspecified stage Qualified Code(s): N18.9 - Chronic kidney disease, unspecified Code(s): N18.9 - Chronic kidney disease, unspecified Status: Chronic Assessment and Plan: Creatinine is essentially stable on review of previous labs. (5) Abnormal urinalysis: Code(s): R82.90 - Unspecified abnormal findings in urine Status: Acute Assessment and Plan: Currently on Macrobid though with her renal function that will be changed to ceftriaxone. Urine cu
[2022-09-20] MEDS: oxyCODONE/ACETAMINOPHEN (*CRX) 5-325 MG TABLET 1 TABLET PO ×2 (16:52→23:59)
[2022-09-20] MEDS: traMADol HCL (*CRX) 50 MG TABLET PO (21:52)
[2022-09-20] MEDS: PRAVASTATIN SODIUM 20 MG TABLET 80 MG PO (21:53)
[2022-09-20] MEDS: QUEtiapine FUMARATE 25 MG TABLET PO (21:53)
[2022-09-21] VITALS (14 sets, daily range): BP systolic 110–163; BP diastolic 64–101; PULSE 69–123; RESP 14–22; TEMP 36.5–37.6; O2SAT 95–97; BMI 26.6
--- NOTE | 2022-09-21 | ECG_ITS ---
Measurements Intervals [place] Rate: 126 P: [place]: 0 QRS: 20 QRSD: 94 T: 14 QT: 355 QTc: 515 Interpretive Statements ATRIAL FLUTTER WITH RAPID VENTRICULAR RESPONSE POOR R-WAVE PROGRESSION NONSPECIFIC ST AND T-WAVE ABNORMALITY ABNORMAL ECG COMPARED TO ECG 09/20/2022 16:12:35 CURRENT RHYTHM IS SUGGESTIVE OF ATRIAL FLUTTER(SEE v1) Electronically Signed On 09-21-2022 7:13:50 CDT by Aurelio Chamberlain M.D.
[2022-09-21] MEDS: MELATONIN 3 MG TABLET PO ×2 (00:01→22:51)
[2022-09-21 05:09] LABS: Hemoglobin 12.5 g/dL (12.0-15.0); Immature Platelet Fraction Pct 3.4 % (0.9-11.2); Mean Corpuscular HGB Conc 32.9 g/dl (32-36); Mean Corpuscular Hemoglobin 31.5 pg (26-34); Mean Corpuscular Volume 95.7 fl (80-100); Mean Platelet Volume 10.1 fl (7.4-10.4); Platelet Count Result 124 k/mm3 (150-375); Red Blood Count 3.97 M/mm3 (4.2-5.4); Red Cell Distribution Width 13.2 % (11.5-14.5); White Blood Count 7.3 K/mm3 (4.5-10.0)
[2022-09-21] MEDS: oxyCODONE/ACETAMINOPHEN (*CRX) 5-325 MG TABLET 1 TABLET PO ×3 (05:12→18:36)
[2022-09-21 05:25] LABS: Anion Gap 9 mmol/L (8-16); Blood Urea Nitrogen 35 mg/dL (7-17); Calcium 8.6 mg/dL (8.4-10.2); Carbon Dioxide 22 mmol/L (22-30); Chloride 101 mmol/L (98-107); Estimated CRCL calculation 24 ml/min; Estimated Glomerular Filt Rate 39; Glucose 80 mg/dL (65-110); Magnesium 2.1 mg/dL (1.6-2.3); Sodium 132 mmol/L (137-145)
[2022-09-21] MEDS: LEVOTHYROXINE SODIUM 50 MCG TABLET PO (06:47)
[2022-09-21] MEDS: SOTALOL HCL 80 MG TABLET PO ×2 (08:22→21:09)
[2022-09-21] MEDS: CHOLECALCIFEROL 1,000 UNITS TABLET 2000 UNITS PO (08:23)
[2022-09-21] MEDS: FERROUS SULFATE 324 MG TABLET PO ×2 (08:23→18:05)
[2022-09-21] MEDS: buPROPion HCL SR (12 HR) 150 MG TAB PO ×2 (08:23→21:10)
--- NOTE | 2022-09-21 09:22 | PM.PNCARD ---
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 -- s/p Micra PPM placement yesterday (2) Atrial fibrillation with rapid ventricular response: Code(s): I48.91 - Unspecified atrial fibrillation Status: Acute Assessment and Plan: paroxysmal atrial fibrillation, has been in AFib the last few days, remains in atrial fibrillation now but reasonably rate controlled. -- Has been started on sotalol, 3rd dose given this morning -- EKG 2 hours post sotalol administration x 5 doses -- Daily Mag, BMP (3) Low grade fever: Code(s): R50.9 - Fever, unspecified Status: Acute Assessment and Plan: Being treated for UTI. White count is normal. Has a Bui catheter. Subjective Date/time seen: 09/21/22 09:22 Cardiology follow up for tachy-clyde syndrome, s/p Micra PPM Has some confusion. Complaining of pain in her neck because of the ICU bed. Denies any chest pain or palpitations. Review of Systems Neurologic: Denies confusion Psychiatric: Psychiatric: Denies confusion Exam Const: General: cooperative, comfortable and confusion Orientation/consciousness: oriented to person, patient oriented x3 and No confusion Other: Frail elderly lady, supine, alert no distress HENMT: Mouth: Yes moist mucous membranes Eyes: General: appearance normal, both eyes and all related structures Neck: Neck: supple Resp: Effort & Inspection: normal respiratory effort Auscultation: clear to auscultation bilaterally Cardio: Rate: regular rate Rhythm: regular rhythm and abnormal rhythm irregularly irregular GI: Inspection: normal to inspection Skin: Other: R groin venous access site free from ecchymosis, bleeding. Suture removed. Neuro: General: oriented to person, patient oriented x3 and confusion Extrem: Right lower extremity: no edema Left lower extremity: no edema Psych: Appearance: grossly normal Mental Status: mental status grossly normal Other: Anxious at times Objective Data Vital Signs Vital Signs: Vital Signs - 24 hr 09/20/22 10:00 09/20/22 10:09/20/22 13:15 Temperature 37.8 C H 37.2 C Pulse Rate 120 H 120 H 108 H Respiratory Rate 20 26 H Blood Pressure 162/79 H 177/152 H Pulse Oximetry 93 94 Oxygen Delivery 09/20/22 14:00 09/20/22 13:46 09/20/22 14:03 Temperature 37.2 C 37.2 C Pulse Rate 117 H 118 H 117 H Respiratory Rate 24 H 24 H Blood Pressure 142/83 H 142/83 H Pulse Oximetry 94 94 Oxygen Delivery 09/20/22 14:18 09/20/22 14:48 09/20/22 15:48 Temperature 37.2 C 37.3 C 37.2 C Pulse Rate 108 H 113 H 117 H Respiratory Rate 21 H 22 H 22 H Blood Pressure 153/87 H 160/76 H 162/97 H Pulse Oximetry 94 95 95 Oxygen Delivery 09/20/22 13:30 09/20/22 16:00 09/20/22 16:00 Temperature Pulse Rate 117 H Respiratory Rate Blood Pressure Pulse Oximetry 93 93 Oxygen Delivery Room Air Room Air 09/20/22 18:00 09/20/22 18:00 09/20/22 21:52 Temperature 37.3 C Pulse Rate 106 H 106 H 99 Respiratory Rate 16 Blood Pressure 134/68 Pulse Oximetry 95 Oxygen Delivery 09/20/22 20:00 09/20/22 20:00 09/20/22 20:00 Temperature 36.9 C Pulse Rate 139 H 99 139 H Respiratory Rate 16 21 H Blood Pressure 124/87 Pulse Oximetry 95 100 Oxygen Delivery Room Air 09/20/22 22:00 09/20/22 22:00 09/21/22 00:00 Temperature 37.1 C Pulse Rate 93 93 111 H Respiratory Rate 20 Blood Pressure 145/106 H Pulse Oximetry 95 Oxygen Delivery 09/21/22 00:00 09/21/22 00:00 09/21/22 00:00 Temperature 36.8 C Pulse Rate 103 H 109 H 109 H Respiratory Rate 20 20 Blood Pressure 163/95 H Pulse Oximetry 95 Oxygen Delivery Room Air 09/21/22 02:00 09/21/22 02:00 09/21/22 04:00 Temperature 36.6 C Pulse Rate 104 H 104 H 112 H
--- NOTE | 2022-09-21 12:28 | PM.IMPN ---
Progress Note: A&P Assessment and Plan (1) Symptomatic bradycardia: Code(s): R00.1 - Bradycardia, unspecified Status: Acute Assessment and Plan: Hold metoprolol. Will also hold Eliquis in case she needs a pacemaker. Cardiology consulted. Orthostatics were severe and positive, Landen hose now added, did not respond much to have small bolus, concern that patient has significant systolic hypertension at rest, cardiology is considering adding midodrine, defer management to them Hold metoprolol. Will also hold Eliquis in case she needs a pacemaker. Cardiology consulted. Orthostatics were severe and positive, Landen hose now added, did not respond much to have small bolus, concern that patient has significant systolic hypertension at rest, cardiology is considering adding midodrine, defer management to them 09/21/2022- interval history: 87-year-old female with history of proximal atrial fibrillation,? 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 started on low dose metoprolol 6.25mg BID patient with clyde-techy syndrome with long symptomatic pause had temporary pacemaker placed on 09/16, seen by button sewer hand , this will help her symptoms, on 09/20 patient had permanent pacemaker placed, she had just returned from cardiac catherization and somnolent will monitor, today patient stats feels better, will have PT/OT evaluate the patient, patient will benefit going acute rehab before going home, patient with recurrent UTI continue to complaints of dysuria and urinary incontinent, urine culture is growing Proteus mirabilis sensitive to ceftriaxone, stopped amoxicillin will continue to monitor. 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 (2) Atrial fibrillation with rapid ventricular response: Code(s): I48.91 - Unspecified atrial fibrillation Status: Acute Assessment and Plan: The patient was in AFib/RVR on arrival per triage not and she was having sensations of racing heart and palpitations prior to coming in. Since arrival however she has been a sinus bradycardia as detailed in HPI. Metoprolol on hold given bradycardia. (3) Hypertension: Qualifiers: Hypertension type: essential hypertension Qualified Code(s): I10 - Essential (primary) hypertension Code(s): I10 - Essential (primary) hypertension Status: Acute Assessment and Plan: Blood pressure shows isolated systolic hypertension. She did take her metoprolol this morning which of course is currently on hold. Hydralazine ordered p.r.n.. Will continue to monitor closely for now. Blood pressure reviewed 09/14 (4) Chronic kidney disease: Qualifiers: Chronic kidney disease stage: unspecified stage Qualified Code(s): N18.9 - Chronic kidney disease, unspecified Code(s): N18.9 - Chronic kidney disease, unspecified Status: Chronic Assessment and Plan: Creatinine is essentially stable on review of previous labs. (5) Abnormal urinalysis: Code(s): R82.90 - Unspecified abnormal findings in urine Statu
--- NOTE | 2022-09-21 13:33 | ECG_ITS ---
Measurements Intervals [place] Rate: 109 P: [place]: 0 QRS: 14 QRSD: 95 T: -18 QT: 359 QTc: 485 Interpretive Statements ATRIAL FIBRILLATION WITH RAPID VENTRICULAR RESPONSE CANNOT RULE OUT ANTEROSEPTAL MYOCARDIAL INFARCTION [40+ ms Q WAVE IN V1-V4], OF INDETERMINATE AGE COMPARED TO ECG 09/21/2022 00:02:47 NO SIGNIFICANT CHANGES Electronically Signed On 09-21-2022 18:03:42 CDT by Uzma Law M.D.
[2022-09-21] MEDS: traMADol HCL (*CRX) 50 MG TABLET PO (21:08)
[2022-09-21] MEDS: PRAVASTATIN SODIUM 20 MG TABLET 80 MG PO (21:09)
[2022-09-21] MEDS: QUEtiapine FUMARATE 25 MG TABLET PO (21:10)
[2022-09-21] MEDS: polyethylene glycoL 3350 17 GM POWD.PACK PO (22:51)
--- NOTE | 2022-09-21 23:00 | ECG_ITS ---
Measurements Intervals [place] Rate: 116 P: [place]: 0 QRS: 17 QRSD: 92 T: 35 QT: 352 QTc: 490 Interpretive Statements ATRIAL FIBRILLATION WITH RAPID VENTRICULAR RESPONSE ANTEROSEPTAL MYOCARDIAL INFARCTION [40+ ms Q WAVE IN V1-V4], OF INDETERMINATE AGE COMPARED TO ECG 09/21/2022 13:42:56 NO SIGNIFICANT CHANGES Electronically Signed On 09-22-2022 15:44:01 CDT by Uzma Law M.D.
[2022-09-22] VITALS (13 sets, daily range): BP systolic 120–180; BP diastolic 43–80; PULSE 55–102; RESP 15–22; TEMP 36.6–37; O2SAT 94–100
[2022-09-22 04:30] LABS: Hematocrit 35.1 % (37.0-47.0); Hemoglobin 11.5 g/dL (12.0-15.0); Mean Corpuscular HGB Conc 32.8 g/dl (32-36); Mean Corpuscular Hemoglobin 31.3 pg (26-34); Mean Corpuscular Volume 95.6 fl (80-100); Mean Platelet Volume 9.7 fl (7.4-10.4); Platelet Count Result 124 k/mm3 (150-375); Red Blood Count 3.67 M/mm3 (4.2-5.4); Red Cell Distribution Width 13.2 % (11.5-14.5); White Blood Count 6.2 K/mm3 (4.5-10.0)
[2022-09-22 04:41] LABS: Anion Gap 4 mmol/L (8-16); Blood Urea Nitrogen 34 mg/dL (7-17); Calcium 8.6 mg/dL (8.4-10.2); Carbon Dioxide 28 mmol/L (22-30); Chloride 102 mmol/L (98-107); Estimated CRCL calculation 21 ml/min; Estimated Glomerular Filt Rate 33; Glucose 89 mg/dL (65-110); Magnesium 2.1 mg/dL (1.6-2.3); Potassium 3.7 mmol/L (3.4-5.0); Sodium 134 mmol/L (137-145)
[2022-09-22] MEDS: LEVOTHYROXINE SODIUM 50 MCG TABLET PO (06:54)
--- NOTE | 2022-09-22 08:48 | PM.PNCARD ---
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 -- s/p Micra PPM placement 09/20 (2) Atrial fibrillation with rapid ventricular response: Code(s): I48.91 - Unspecified atrial fibrillation Status: Acute Assessment and Plan: paroxysmal atrial fibrillation, now in sinus rhythm on sotalol -- Has been started on sotalol, 5th dose given this morning -- Continue current sotalol dose -- EKG 2 hours post sotalol administration x 5 doses -- QTc stable -- Daily Mag, BMP -- Dispo per hospitalist, needs rehab. (3) Low grade fever: Code(s): R50.9 - Fever, unspecified Status: Acute Assessment and Plan: Being treated for UTI. White count is normal. Has a Bui catheter. Subjective Date/time seen: 09/22/22 08:48 Cardiology follow up for tachy-clyde syndrome, s/p Micra PPM placement Converted to sinus rhythm overnight. Feeling well this morning. States she has some back pain. Review of Systems Review of Systems: All systems reviewed & are unremarkable except as noted in HPI and below Neurologic: Reports confusion Psychiatric: Psychiatric: Reports confusion Exam Const: General: cooperative and comfortable; No confusion Orientation/consciousness: oriented to person, patient oriented x3 and confusion HENMT: Mouth: Yes moist mucous membranes Eyes: General: appearance normal, both eyes and all related structures Neck: Neck: supple Resp: Effort & Inspection: normal respiratory effort Auscultation: clear to auscultation bilaterally Cardio: Rate: regular rate Rhythm: regular rhythm GI: Inspection: normal to inspection Skin: Other: R groin venous access site free from ecchymosis, bleeding. Neuro: General: oriented to person and patient oriented x3 Extrem: Right lower extremity: no edema Left lower extremity: no edema Psych: Appearance: grossly normal Mental Status: mental status grossly normal Other: Anxious at times Objective Data Vital Signs Vital Signs: Vital Signs - 24 hr 09/21/22 10:00 09/21/22 12:00 09/21/22 14:00 Temperature Pulse Rate 98 95 104 H Respiratory Rate Blood Pressure Pulse Oximetry Oxygen Delivery 09/21/22 12:00 09/21/22 12:00 09/21/22 16:00 Temperature 37.3 C Pulse Rate 97 115 H Respiratory Rate 16 Blood Pressure 133/82 Pulse Oximetry 96 Oxygen Delivery Room Air 09/21/22 16:00 09/21/22 16:00 09/21/22 18:00 Temperature 37.6 C H Pulse Rate 109 H 104 H Respiratory Rate 21 H Blood Pressure 119/101 H Pulse Oximetry 97 Oxygen Delivery Room Air 09/21/22 20:00 09/21/22 20:00 09/21/22 20:00 Temperature 37.3 C Pulse Rate 69 69 69 Respiratory Rate 22 H 22 H Blood Pressure 156/64 H Pulse Oximetry 95 95 Oxygen Delivery Room Air 09/21/22 21:04 09/21/22 21:09 09/22/22 00:00 Temperature Pulse Rate 123 H 108 H 102 H Respiratory Rate Blood Pressure Pulse Oximetry Oxygen Delivery 09/22/22 00:00 09/22/22 00:00 09/22/22 02:00 Temperature 36.6 C Pulse Rate 102 H 102 H 70 Respiratory Rate 22 H 22 H Blood Pressure 120/70 Pulse Oximetry 95 95 Oxygen Delivery Room Air 09/22/22 04:00 09/22/22 04:00 09/22/22 04:00 Temperature 36.6 C Pulse Rate 62 62 70 Respiratory Rate 15 15 Blood Pressure 128/54 L Pulse Oximetry 95 95 Oxygen Delivery Room Air 09/22/22 06:00 Temperature Pulse Rate 61 Respiratory Rate Blood Pressure Pulse Oximetry Oxygen Delivery Intake/Output Intake/Output: Intake & Output 09/19/22 09/20/22 09/21/22 09/22/22 23:59 23:59 23:59 23:59 Intake Total 2030 420 1025 Output Total 950 650 450 300 Balance 1080 -230 575 -300 Meds/Results Medications: Active Medications Generic Name Dose Route Start Last Admin
[2022-09-22] MEDS: polyethylene glycoL 3350 17 GM POWD.PACK PO (08:52)
[2022-09-22] MEDS: buPROPion HCL SR (12 HR) 150 MG TAB PO ×2 (08:52→20:37)
[2022-09-22] MEDS: SOTALOL HCL 80 MG TABLET PO ×2 (08:52→20:37)
[2022-09-22] MEDS: FERROUS SULFATE 324 MG TABLET PO ×2 (08:52→17:05)
[2022-09-22] MEDS: CHOLECALCIFEROL 1,000 UNITS TABLET 2000 UNITS PO (08:53)
--- NOTE | 2022-09-22 11:00 | ECG_ITS ---
Measurements Intervals [place] Rate: 63 P: 58 [place]: 210 QRS: 9 QRSD: 89 T: 46 QT: 464 QTc: 477 Interpretive Statements SINUS RHYTHM WITH FIRST DEGREE AV BLOCK WITH OCCASIONAL SUPRAVENTRICULAR PREMATURE COMPLEXES POSSIBLE LEFT ATRIAL ENLARGEMENT [-0.1mV P WAVE IN V1/V2] POSSIBLE RIGHT VENTRICULAR CONDUCTION DELAY [RSR (QR) IN V1/V2] SEPTAL MYOCARDIAL INFARCTION , INDETERMINATE AGE COMPARED TO ECG 09/21/2022 22:37:26 SINUS RHYTHM NOW PRESENT FIRST DEGREE AV BLOCK NOW PRESENT Electronically Signed On 09-22-2022 15:56:42 CDT by Uzma Law M.D.
[2022-09-22] MEDS: oxyCODONE/ACETAMINOPHEN (*CRX) 5-325 MG TABLET 1 TABLET PO (11:27)
--- NOTE | 2022-09-22 13:03 | PM.IMPN ---
Progress Note: A&P Assessment and Plan (1) Symptomatic bradycardia: Code(s): R00.1 - Bradycardia, unspecified Status: Acute Assessment and Plan: Hold metoprolol. Will also hold Eliquis in case she needs a pacemaker. Cardiology consulted. Orthostatics were severe and positive, Landen hose now added, did not respond much to have small bolus, concern that patient has significant systolic hypertension at rest, cardiology is considering adding midodrine, defer management to them Hold metoprolol. Will also hold Eliquis in case she needs a pacemaker. Cardiology consulted. Orthostatics were severe and positive, Landen hose now added, did not respond much to have small bolus, concern that patient has significant systolic hypertension at rest, cardiology is considering adding midodrine, defer management to them 09/22/2022- interval history: 87-year-old female with history of proximal atrial fibrillation,? 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 metoprolol 6.25mg patient with clyde-techy syndrome with long symptomatic pause had temporary pacemaker placed on 09/16, seen by direct mail manager , this will help her symptoms, on 09/20 patient had permanent pacemaker, patient has PAF and on 09/20 patient was started on sotalol rate is trending down, today patient stats feels better, will have PT/OT evaluate the patient, patient will benefit going acute rehab before going home, patient with recurrent UTI continue to complaints of dysuria and urinary incontinent, urine culture is growing Proteus mirabilis sensitive to ceftriaxone, stopped amoxicillin will continue to monitor. 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 (2) Atrial fibrillation with rapid ventricular response: Code(s): I48.91 - Unspecified atrial fibrillation Status: Acute Assessment and Plan: The patient was in AFib/RVR on arrival per triage not and she was having sensations of racing heart and palpitations prior to coming in. Since arrival however she has been a sinus bradycardia as detailed in HPI. Metoprolol on hold given bradycardia. (3) Hypertension: Qualifiers: Hypertension type: essential hypertension Qualified Code(s): I10 - Essential (primary) hypertension Code(s): I10 - Essential (primary) hypertension Status: Acute Assessment and Plan: Blood pressure shows isolated systolic hypertension. She did take her metoprolol this morning which of course is currently on hold. Hydralazine ordered p.r.n.. Will continue to monitor closely for now. Blood pressure reviewed 09/14 (4) Chronic kidney disease: Qualifiers: Chronic kidney disease stage: unspecified stage Qualified Code(s): N18.9 - Chronic kidney disease, unspecified Code(s): N18.9 - Chronic kidney disease, unspecified Status: Chronic Assessment and Plan: Creatinine is essentially stable on review of previous labs. (5) Abnormal urinalysis: Code(s): R82.90 - Unspecified abnormal findings in urine Status:
[2022-09-22] MEDS: traMADol HCL (*CRX) 50 MG TABLET PO (14:41)
[2022-09-22] MEDS: BISACODYL 10 MG SUPPOSITORY RECTAL (20:14)
[2022-09-22] MEDS: QUEtiapine FUMARATE 25 MG TABLET PO (20:37)
[2022-09-22] MEDS: APIXABAN 5 MG TABLET PO (20:37)
[2022-09-22] MEDS: PRAVASTATIN SODIUM 20 MG TABLET 80 MG PO (20:38)
--- NOTE | 2022-09-22 21:09 | PCDIET ---
This patient, Nelia Peterson, was transferred to [facility] on 09/22/22 at 2020. Personal belongings sent with patient. Report given to Alma WRAY. Appropriate documentation sent with patient.
[2022-09-23] VITALS (9 sets, daily range): BP systolic 134–158; BP diastolic 45–53; PULSE 55–65; RESP 14–18; TEMP 36.3–36.6; O2SAT 98–100
[2022-09-23] MEDS: LEVOTHYROXINE SODIUM 50 MCG TABLET PO (06:13)
[2022-09-23] MEDS: polyethylene glycoL 3350 17 GM POWD.PACK PO (09:24)
[2022-09-23] MEDS: FERROUS SULFATE 324 MG TABLET PO ×2 (09:25→17:06)
[2022-09-23] MEDS: buPROPion HCL SR (12 HR) 150 MG TAB PO ×2 (09:25→22:18)
[2022-09-23] MEDS: CHOLECALCIFEROL 1,000 UNITS TABLET 2000 UNITS PO (09:25)
[2022-09-23] MEDS: APIXABAN 5 MG TABLET PO ×2 (09:26→22:18)
[2022-09-23] MEDS: SOTALOL HCL 80 MG TABLET PO ×2 (09:26→22:18)
--- NOTE | 2022-09-23 15:23 | PM.IMPN ---
Progress Note: A&P Assessment and Plan (1) Symptomatic bradycardia: Code(s): R00.1 - Bradycardia, unspecified Status: Acute Assessment and Plan: History of paroxysmal atrial fibrillation Presented with dizziness palpitation. ED with bradycardia tachycardia normal blood pressure Takes metoprolol 50 mg b.i.d. Started on low-dose metoprolol for supine hypertension Tachy-clyde syndrome with long symptomatic pause Temporary pacemaker placed on 09/16/2022 Permanent pacemaker placed for 09/20/22 started on sotalol cardiology on board (2) Atrial fibrillation with rapid ventricular response: Code(s): I48.91 - Unspecified atrial fibrillation Status: Acute Assessment and Plan: The patient was in AFib/RVR on arrival per triage not and she was having sensations of racing heart and palpitations prior to coming in. Since arrival however she has been a sinus bradycardia as detailed in HPI. Metoprolol on hold given bradycardia. (3) Hypertension: Qualifiers: Hypertension type: essential hypertension Qualified Code(s): I10 - Essential (primary) hypertension Code(s): I10 - Essential (primary) hypertension Status: Acute Assessment and Plan: Blood pressure shows isolated systolic hypertension. She did take her metoprolol this morning which of course is currently on hold. Hydralazine ordered p.r.n.. Will continue to monitor closely for now. Blood pressure reviewed 09/14 (4) Chronic kidney disease: Qualifiers: Chronic kidney disease stage: unspecified stage Qualified Code(s): N18.9 - Chronic kidney disease, unspecified Code(s): N18.9 - Chronic kidney disease, unspecified Status: Chronic Assessment and Plan: Creatinine is essentially stable on review of previous labs. (5) Abnormal urinalysis: Code(s): R82.90 - Unspecified abnormal findings in urine Status: Acute Assessment and Plan: Currently on Macrobid though with her renal function that will be changed to ceftriaxone. Urine culture no growth (6) Current use of intermediate designer anticoagulation: Code(s): Z79.01 - group home (current) use of anticoagulants Status: Acute Assessment and Plan: On apixaban (7) Hypothyroidism: Code(s): E03.9 - Hypothyroidism, unspecified Status: Acute Assessment and Plan: Continue levothyroxine, TSH within normal limits Plan DVT prophylaxis with eliquis GI prophylaxis not indicated Code status full code Generalized weakness: PT OT to see needs rehabilitation Low-grade fever treated for UTI urine culture negative. Calderon had catheter in place. Will remove them. Subjective Date/time seen: 09/23/22 15:23 Interval history: no feer, chills. feeling okay. still feeling weak. calderon in place. discussed with nursing staff. Review of Systems Review of Systems: All systems reviewed & are unremarkable except as noted in HPI and below (HPI) Exam Narrative: Elderly frail Patient is comfortable, NAD HEENT: eyes are clear and none icteric LUNGS: Normal respiratory effort no respiratory distress diminished breath sound bilaterally ABD: Not distended soft nontender Lower extremities: no edema no cyanosis or clubbing SKIN: nonjaundiced Neuro: grossly intact. Generalized weakness Calderon in place with clear urine in bag Objective Data Vital Signs Vital Signs: Vital Signs - 24 hr 09/22/22 16:00 09/22/22 16:00 09/22/22 20:37 Temperature 98.6 F Pulse Rate 59 L 61 59 L Respiratory Rate 15 Blood Pressure 152/80 H Pulse Oximetry 99 Oxygen Delivery 09/22/22 20:00 09/22/22 20:00 09/22/22 21:17 Temperature 97.9 F Pulse Rate 56 L 61 Respiratory Rate 17 Blood Pressure 180/59 H Pulse Oximetry 100 Oxygen Delivery Room Air 09/22/22 23:43 09/23/22 00:00 09/23/22 03:43 Temperature 97.9 F 97.8 F Pulse Rate 55 L 60 62 Respiratory Rate 17
[2022-09-23] MEDS: QUEtiapine FUMARATE 25 MG TABLET PO (22:18)
[2022-09-23] MEDS: PRAVASTATIN SODIUM 20 MG TABLET 80 MG PO (22:18)
[2022-09-23] MEDS: oxyCODONE/ACETAMINOPHEN (*CRX) 5-325 MG TABLET 1 TABLET PO (22:18)
[2022-09-24] VITALS (7 sets, daily range): BP systolic 145–151; BP diastolic 66–73; PULSE 51–110; RESP 14–16; TEMP 36.4–36.6; O2SAT 95–98
[2022-09-24] MEDS: LEVOTHYROXINE SODIUM 50 MCG TABLET PO (06:23)
[2022-09-24 06:50] LABS: Basophils Absolute Auto 0.1 K/mm3 (0.0-0.1); Basophils Percent Auto 1.5 % (0.2-1.2); Eosinophils Absolute Auto 0.3 K/mm3 (0-0.3); Eosinophils Percent Auto 5.3 % (0-4.4); Hematocrit 34.4 % (37.0-47.0); Immature Granulocyte Absolute 0.02 K/mm3 (0.00-0.031); Immature Granulocyte Percent A 0.4 % (0-0.5); Lymphocytes Absolute Auto 1.43 K/mm3 (0.9-3.2); Mean Corpuscular Hemoglobin 30.5 pg (26-34); Mean Corpuscular Volume 95.3 fl (80-100); Mean Platelet Volume 9.5 fl (7.4-10.4); Monocytes Absolute Auto 0.8 K/mm3 (0.1-0.6); Neutrophils Absolute Auto 2.2 K/mm3 (1.3-6.7); Neutrophils Percent Auto 46.8 % (45.5-73.1); Platelet Count Result 153 k/mm3 (150-375); Red Blood Count 3.61 M/mm3 (4.2-5.4); Red Cell Distribution Width 13.1 % (11.5-14.5); White Blood Count 4.8 K/mm3 (4.5-10.0)
[2022-09-24 07:05] LABS: Alanine Aminotransferase 15 U/L (6-35); Albumin Level 2.8 g/dL (3.5-5.1); Alkaline Phosphatase 67 U/L (38-126); Anion Gap 6 mmol/L (8-16); Aspartate Amino Transferase 23 U/L (14-36); Bilirubin,Total 0.4 mg/dL (0.2-1.3); Blood Urea Nitrogen 30 mg/dL (7-17); Calcium 8.4 mg/dL (8.4-10.2); Carbon Dioxide 27 mmol/L (22-30); Chloride 106 mmol/L (98-107); Estimated CRCL calculation 24 ml/min; Estimated Glomerular Filt Rate 33; Glucose 79 mg/dL (65-110); Magnesium 2.3 mg/dL (1.6-2.3); Potassium 4.1 mmol/L (3.4-5.0); Sodium 139 mmol/L (137-145)
[2022-09-24] MEDS: polyethylene glycoL 3350 17 GM POWD.PACK PO (08:46)
[2022-09-24] MEDS: CHOLECALCIFEROL 1,000 UNITS TABLET 2000 UNITS PO (08:46)
[2022-09-24] MEDS: buPROPion HCL SR (12 HR) 150 MG TAB PO (08:49)
[2022-09-24] MEDS: FERROUS SULFATE 324 MG TABLET PO (08:49)
[2022-09-24] MEDS: SOTALOL HCL 80 MG TABLET PO (08:49)
[2022-09-24] MEDS: APIXABAN 5 MG TABLET PO (08:49)
--- NOTE | 2022-09-24 10:49 | PM.IMPN ---
Progress Note: A&P Assessment and Plan (1) Symptomatic bradycardia: Code(s): R00.1 - Bradycardia, unspecified Status: Acute Assessment and Plan: History of paroxysmal atrial fibrillation Presented with dizziness palpitation. ED with bradycardia tachycardia normal blood pressure Takes metoprolol 50 mg b.i.d. Started on low-dose metoprolol for supine hypertension Tachy-clyde syndrome with long symptomatic pause Temporary pacemaker placed on 09/16/2022 Permanent pacemaker placed for 09/20/22 started on sotalol cardiology on board (2) Atrial fibrillation with rapid ventricular response: Code(s): I48.91 - Unspecified atrial fibrillation Status: Acute Assessment and Plan: The patient was in AFib/RVR on arrival per triage not and she was having sensations of racing heart and palpitations prior to coming in. Since arrival however she has been a sinus bradycardia as detailed in HPI. Metoprolol on hold given bradycardia. (3) Hypertension: Qualifiers: Hypertension type: essential hypertension Qualified Code(s): I10 - Essential (primary) hypertension Code(s): I10 - Essential (primary) hypertension Status: Acute Assessment and Plan: Blood pressure shows isolated systolic hypertension. She did take her metoprolol this morning which of course is currently on hold. Hydralazine ordered p.r.n.. Will continue to monitor closely for now. Blood pressure reviewed 09/14 (4) Chronic kidney disease: Qualifiers: Chronic kidney disease stage: unspecified stage Qualified Code(s): N18.9 - Chronic kidney disease, unspecified Code(s): N18.9 - Chronic kidney disease, unspecified Status: Chronic Assessment and Plan: Creatinine is essentially stable on review of previous labs. (5) Abnormal urinalysis: Code(s): R82.90 - Unspecified abnormal findings in urine Status: Acute Assessment and Plan: Currently on Macrobid though with her renal function that will be changed to ceftriaxone. Urine culture no growth (6) Current use of oysterman anticoagulation: Code(s): Z79.01 - [facility] use of anticoagulants Status: Acute Assessment and Plan: On apixaban (7) Hypothyroidism: Code(s): E03.9 - Hypothyroidism, unspecified Status: Acute Assessment and Plan: Continue levothyroxine, TSH within normal limits Plan DVT prophylaxis with eliquis GI prophylaxis not indicated Code status full code Generalized weakness: PT OT to see needs rehabilitation Low-grade fever treated for UTI urine culture negative. Bui had catheter in place. Removed Bui. Afebrile Disposition: PT OT recommend home health. Home health arrangement per care coordination. Subjective Date/time seen: 09/24/22 10:49 Interval history: No overnight events. Working with the therapy and walking in the hallways Bui has been removed remains afebrile. Little short of breath when ambulates no leg swelling Review of Systems Review of Systems: All systems reviewed & are unremarkable except as noted in HPI and below (HPI) Exam Narrative: Elderly frail Patient is comfortable, NAD HEENT: eyes are clear and none icteric LUNGS: Normal respiratory effort no respiratory distress diminished breath sound bilaterally ABD: Not distended soft nontender Lower extremities: no edema no cyanosis or clubbing SKIN: nonjaundiced Neuro: grossly intact. Generalized weakness Objective Data Vital Signs Vital Signs: Vital Signs - 24 hr 09/23/22 14:30 09/23/22 16:00 09/23/22 21:31 Temperature 97.7 F 97.4 F L Pulse Rate 58 L 63 64 Respiratory Rate 18 14 Blood Pressure 139/52 L 158/53 H Pulse Oximetry 100 98 Oxygen Delivery 09/23/22 22:18 09/23/22 20:00 09/23/22 20:00 Temperature Pulse Rate 65 57 L Respiratory Rate Blood Pressure Pulse Oximetry Oxygen Delivery R
--- NOTE | 2022-09-24 14:37 | PM.DS ---
DS: Admitting Diagnosis Discharge Date 09/24/2022 Admitting Diagnosis Dizziness DS: Discharge Diagnosis Discharge Diagnosis (1) Symptomatic bradycardia: Code(s): R00.1 - Bradycardia, unspecified Status: Acute (2) Atrial fibrillation with rapid ventricular response: Code(s): I48.91 - Unspecified atrial fibrillation Status: Acute (3) Hypertension: Qualifiers: Hypertension type: essential hypertension Qualified Code(s): I10 - Essential (primary) hypertension Code(s): I10 - Essential (primary) hypertension Status: Acute (4) Chronic kidney disease: Qualifiers: Chronic kidney disease stage: unspecified stage Qualified Code(s): N18.9 - Chronic kidney disease, unspecified Code(s): N18.9 - Chronic kidney disease, unspecified Status: Chronic (5) Abnormal urinalysis: Code(s): R82.90 - Unspecified abnormal findings in urine Status: Acute (6) Current use of residential anticoagulation: Code(s): Z79.01 - [facility] (current) use of anticoagulants Status: Acute (7) Hypothyroidism: Code(s): E03.9 - Hypothyroidism, unspecified Status: Acute DS: Summary Hospital Course Hospital Course: # symptomatic bradycardia: History of paroxysmal atrial fibrillation Presented with dizziness palpitation. ED with bradycardia and tachycardia normal blood pressure Takes metoprolol 50 mg b.i.d. Started on low-dose metoprolol for supine hypertension Tachy-clyde syndrome with long symptomatic pause Temporary pacemaker placed on 09/16/2022 Permanent pacemaker placed for 09/20/22 ?started on sotalol cardiology on board. Follow up with Cardiology as an outpatient basis # Atrial fibrillation with rapid ventricular response: The patient was in AFib/RVR on arrival per triage not and she was having sensations of racing heart and palpitations prior to coming in. Since arrival however she has been a sinus bradycardia as detailed in HPI. Metoprolol on hold given bradycardia. # hypertension: Blood pressure shows isolated systolic hypertension. She did take her metoprolol this morning which of course is currently on hold. Hydralazine ordered p.r.n..? Will continue to monitor closely for now. # Chronic kidney disease: Creatinine is essentially stable on review of previous labs. # abnormal urinalysis: Treated with Macrobid and finish the course. Urine culture no growth # current use of excellence coach anticoagulation: On apixaban # hypothyroidism: Continue levothyroxine, TSH within normal limits # DVT prophylaxis with eliquis # code status full code # generalized weakness:? PT OT to see needs rehabilitation. Worked with therapy. Recommending home health which been arranged # low-grade fever treated for UTI urine culture negative.? Bui had catheter in place.? Removed Bui.? Afebrile # disposition:? PT OT recommend home health.? Home health arrangement per care coordination. Time Spent with Patient Time attestation: Total time spent providing and/or coordinating discharge services: 45 minutes Exam Narrative: Elderly frail Patient is comfortable, NAD HEENT: eyes are clear and none icteric LUNGS: Normal respiratory effort no respiratory distress diminished breath sound bilaterally ABD: Not distended soft nontender Lower extremities: no edema no cyanosis or clubbing SKIN: nonjaundiced Neuro: grossly intact. Generalized weakness DS: Data Data Completed and Pending Labs on day of discharge: Labs from last 24 hours 09/24/22 09/24/22 06:23 06:23 WBC 4.8 RBC 3.61 L Hgb 11.0 L Hct 34.4 L MCV 95.3 MCH 30.5 MCHC 32.0 RDW 13.1 Plt Count 153 MPV 9.5 Immature Gran % (Auto) 0.4 Neut % (Auto) 46.8 Lymph % (Auto) 30.0 Gaines % (Auto) 16.0 H Eos % (Auto) 5.3 H Baso % (Auto) 1.5 H Lymph # (Auto) 1.43 Gaines # (Auto) 0.8 H Eos # (Auto) 0.3 Baso # (Auto) 0.1 Abs Immat Gran (auto) 0.02
== END 2022-09-24 15:12 | disposition home health service (06) | DRG 229 ==
LOC: ANHED 14:07 → ANHIMU 16:15 → ANHICU 09-16 17:34 → ANH3MEDSUR 09-22 21:12
PROVIDERS: Family Medicine; Internal Medicine; Physician Assistant; Specialist; Admitting Provider Chiropractor; Emergency Provider Physician Assistant; PCP Internal Medicine; Visit Provider Internal Medicine
PROC: 5A1223Z Performance of Cardiac Pacing, Continuous (ICD-10-PCS; CPT 33210; principal; 2022-09-16 14:00)
PROC: 02HK3NZ Insertion of Intracardiac Pacemaker into Right Ventricle, Percutaneous Approach (ICD-10-PCS; CPT 33274; principal; 2022-09-20 11:00)
DX: I49.5 Sick sinus syndrome (principal); I48.91 Unspecified atrial fibrillation; I12.9 Hypertensive chronic kidney disease with stage 1 through stage 4 chronic kidney disease, or unspecified chronic kidney disease; N18.9 Chronic kidney disease, unspecified; R82.90 Unspecified abnormal findings in urine; Z79.01 Long term (current) use of anticoagulants; E03.9 Hypothyroidism, unspecified; R50.9 Fever, unspecified; Z79.899 Other long term (current) drug therapy; Z88.5 Allergy status to narcotic agent
CPT/HCPCS: 33210; 33274; 36415; 71045; 71046; 72125; 73200; 74018; 80048; 80053; 81001; 83735; 83880; 84145; 84443; 84484; 85025; 85027; 85055; 85380; 85610; 85730; 87040; 87077; 87086; 87088; 87186; 93005; 96365; 96375; 97110; 97116; 97161; 97165; 97530; 97535; 99285; A9270; C1769; C1786; C1894; G0378; J0131; J0360; J0696; J1170; J1644; J1650; J1885; J2250; J3010; J7030; J7040; J7050; J7120; L1830

== ENCOUNTER 2022-10-19 13:55 | Outpatient (CLI) | payer MEDICARE, SELFPAY ==
[2022-10-19 15:16] LABS: Anion Gap 7 mmol/L (8-16); Blood Urea Nitrogen 28 mg/dL (7-17); Calcium 8.8 mg/dL (8.4-10.2); Carbon Dioxide 24 mmol/L (22-30); Chloride 107 mmol/L (98-107); Estimated Glomerular Filt Rate 27; Glucose 81 mg/dL (65-110); Potassium 4.3 mmol/L (3.4-5.0); Sodium 138 mmol/L (137-145)
== END 2022-10-19 13:56 | disposition home or self-care (01) ==
PROVIDERS: PCP Internal Medicine; Visit Provider Internal Medicine Cardiovascular Disease
DX: I48.0 Paroxysmal atrial fibrillation (principal); I10 Essential (primary) hypertension
CPT/HCPCS: 36415; 80048

== ENCOUNTER 2022-10-29 12:43 | Outpatient (NON) | payer MEDICARE, SELFPAY ==
[2022-10-29 13:18] LABS: Appearance Urine Cloudy (Clear); Bacteria Urine 4+ /hpf; Bilirubin Urine Negative (Negative); Blood Urine 3+ (Negative); Color Urine Yellow (Yellow); Glucose Urine UA Negative (Negative); Ketones Urine Negative (Negative); Leukocyte Esterase Ur 3+ LEU/UL (Negative); Nitrate Urine Positive (Negative); Non Pathogenic Casts 0-2; Protein Urine 1+ mg/dL (Negative); RBC Urine >100 /hpf (0-2); Specific Grav Ur 1.009 (1.001-1.035); Squamous Epithelial Cell Urine None seen /hpf (Few); Urobilinogen Urine 0.2 mg/dL (<2.0); WBC Urine >100 /hpf
[2022-10-29 13:25] LABS: Add Urine Microscopic? YES
== END 2022-10-29 12:44 | disposition home or self-care (01) ==
LOC: HOME HLTH 12:46
PROVIDERS: PCP Internal Medicine; Visit Provider Internal Medicine
DX: I12.9 Hypertensive chronic kidney disease with stage 1 through stage 4 chronic kidney disease, or unspecified chronic kidney disease (principal); Z48.812 Encounter for surgical aftercare following surgery on the circulatory system; Z95.0 Presence of cardiac pacemaker; I48.91 Unspecified atrial fibrillation
CPT/HCPCS: 81001; 87086; 87088

== ENCOUNTER 2022-10-29 13:49 | Emergency (ER) | payer MEDICARE, SELFPAY ==
[2022-10-29] VITALS (12 sets, daily range): BP systolic 127–191; BP diastolic 69–103; PULSE 60–85; RESP 16–18; TEMP 36.9; O2SAT 94–100
--- NOTE | ~2022-10-29 | CT_ITS ---
EXAMINATION: CT abdomen pelvis wo con DATE: 10/29/2022 17:26 INDICATION: Left lower quadrant abdominal pain. TECHNIQUE: Computed tomography (CT) of the abdomen and pelvis was performed without intravenous contr ast. Automated exposure control and iterative reconstruction technique were employed. The dose-length product was 385.14 mGy-cm. COMPARISON: CT abdomen and pelvis 07/21/2022 FINDINGS: The visualized portions of the lung bases demonstrate mild atelectasis. Calcified pulmonary nodules and calcified mediastinal lymph nodes are consistent with old granulomatous disease. No pleu ral effusion. The heart size is normal. No pericardial effusion. Calcifications in the liver and sple en are consistent with old granulomatous disease. There are gallstones in the gallbladder, which is n ormal in size. The pancreas and adrenal glands are normal. There is moderate atrophy of right kidney. There is a staghorn calculus in right kidney. There is severe left hydronephrosis. There is a left i nternal ureteral stent in expected position. There is asymmetric edema around left kidney. There is d iverticulosis of the colon without evidence of diverticulitis. There are no dilated loops of bowel. T he appendix is not visualized. There is calcified atherosclerosis of the aorta and many of the other arteries. There are bilateral inguinal hernias containing fat. There is severe lumbar spondylosis. IMPRESSION: 1. Severe left hydronephrosis. Left internal ureteral stent in expected position. 2. Staghorn calculus in right kidney. Moderate atrophy of right kidney. Reviewed, dictated and finalized at location E. IMPRESSION: 1. Severe left hydronephrosis. Left internal ureteral stent in expected positio n. 2. Staghorn calculus in right kidney. Moderate atrophy of right kidney.
[2022-10-29 14:25] LABS: Basophils Percent Auto 0.5 % (0.2-1.2); Eosinophils Absolute Auto 0.1 K/mm3 (0-0.3); Eosinophils Percent Auto 1.5 % (0-4.4); Hemoglobin 13.4 g/dL (12.0-15.0); Immature Granulocyte Absolute 0.02 K/mm3 (0.00-0.031); Immature Granulocyte Percent A 0.2 % (0-0.5); Immature Platelet Fraction Pct 2.8 % (0.9-11.2); Lymphocytes Absolute Auto 1.57 K/mm3 (0.9-3.2); Mean Corpuscular HGB Conc 31.9 g/dl (32-36); Mean Corpuscular Volume 97.2 fl (80-100); Mean Platelet Volume 10.4 fl (7.4-10.4); Monocytes Absolute Auto 0.7 K/mm3 (0.1-0.6); Monocytes Percent Auto 8.1 % (2.6-8.5); Neutrophils Absolute Auto 5.8 K/mm3 (1.3-6.7); Neutrophils Percent Auto 70.7 % (45.5-73.1); Platelet Count Result 126 k/mm3 (150-375); Red Blood Count 4.32 M/mm3 (4.2-5.4); Red Cell Distribution Width 13.7 % (11.5-14.5); White Blood Count 8.3 K/mm3 (4.5-10.0)
[2022-10-29 14:26] LABS: Alanine Aminotransferase 14 U/L (6-35); Alkaline Phosphatase 70 U/L (38-126); Anion Gap 5 mmol/L (8-16); Aspartate Amino Transferase 25 U/L (14-36); Bilirubin,Total 0.8 mg/dL (0.2-1.3); Blood Urea Nitrogen 28 mg/dL (7-17); Calcium 9.3 mg/dL (8.4-10.2); Carbon Dioxide 26 mmol/L (22-30); Chloride 107 mmol/L (98-107); Estimated CRCL calculation 19 ml/min; Estimated Glomerular Filt Rate 28; Glucose 85 mg/dL (65-110); Lipase 67 U/L (23-300); Potassium 4.5 mmol/L (3.4-5.0); Sodium 138 mmol/L (137-145)
--- NOTE | 2022-10-29 17:25 | ED.ABDPAIN ---
HPI - Abdominal Pain General Chief Complaint: Abdominal Pain Stated Complaint: abdominal pain Time Seen by Provider: 10/29/22 16:40 Source: patient Mode of arrival: ambulatory Limitations: no limitations History of Present Illness HPI narrative: Patient is an 87-year-old female who presents to the ED with report of lower abdominal pain. Patient reports pain began last night while she was getting ready for bed and has been fairly constant since then. Pain radiates across her lower abdomen all the way around to her lower back. She never had pain like this before. She has not tried anything for the pain. She denies any other associated symptoms. Denies nausea, vomiting, diarrhea. She does report issues occasionally with constipation. Last vomited 2 days ago. She took a Senokot last night and had a small bowel movement afterwards. Denies urinary symptoms, dysuria, hematuria. Patient does have history of staghorn calculi and sees Dr. Lorenzo. Related Data Home Medications Medication Instructions Recorded Confirmed bupropion HCl 150 mg tablet,12 hr 150 mg PO BID 11/19/19 09/12/22 sustained-release cholecalciferol (vitamin D3) 50 50 mcg PO DAILY 11/19/19 09/12/22 mcg (2,000 unit) capsule (Vitamin D3) levothyroxine 50 mcg tablet 50 mcg PO QAM 11/19/19 09/12/22 pravastatin 80 mg tablet 80 mg PO HS 11/19/19 09/13/22 Allergies Allergy/AdvReac Type Severity Reaction Status Date / Time enoxaparin Allergy Unknown Other Verified 10/29/22 17:53 heparin Allergy Unknown Other,Nause Verified 10/29/22 17:53 a hydrocodone AdvReac Intermediate Nausea Verified 10/29/22 17:53 codeine AdvReac Mild Nausea Verified 10/29/22 17:53 Review of Systems Review of Systems: CONSTITUTIONAL: Denies fever, chills, or sweats. CARDIOVASCULAR: Denies chest pain. RESPIRATORY: Denies dyspnea. GASTROINTESTINAL: See HPI. GENITOURINARY: Denies dysuria or hematuria. SKIN: Denies rash or itching. MUSCULOSKELETAL: See HPI. NEUROLOGIC: Denies headache, numbness, or weakness. All systems reviewed & are unremarkable except as noted in HPI and below PMFSH Past Medical History Medical History Cerebral aneurysm Status post coil embolization. Chronic anemia Chronic kidney disease Current use of terminal makeup operator anticoagulation Degenerative disc disease Depression Diastolic congestive heart failure Dyslipidemia Endometriosis Heart failure with preserved ejection fraction EF was 60 to 65% in 07/2021. Hemorrhoids Histoplasmosis Hyperlipidemia Hypertension Hypothyroidism Intraoperative ureteral injury (07/2021) Kidney stones Including known right staghorn calculus. Mild aortic stenosis Mild pulmonary hypertension Mitral regurgitation mod to severe Moderate mitral regurgitation Nonspecific colitis Paroxysmal atrial fibrillation Pulmonary embolism Surgical History Surgical History History of arthroplasty of right knee History of cataract extraction History of colonoscopy with polypectomy History of cystoscopy History of lumbar surgery History of tonsillectomy and adenoidectomy History of total hysterectomy with bilateral salpingo-oophorectomy (BSO) Status post coil embolization of cerebral aneurysm Family History Family History Mother , in her 70s Hypertension Father Hypertension Acute myocardial infarction Social History Social History Social History: Surrogate decision maker: Seth Peterson, grandson. Code status: Full code. Smoking packs per day: 0.5 Smoking cigarettes per day: 10.0 Years smoked: 15 Smoking pack-years: 7.50 Smoking status: Never smoker Tobacco type: cigarettes Second hand tobacco smoke exposure: No Smoking end date: 06/06/79 Alcohol i
[2022-10-29] MEDS: SODIUM CHLORIDE 0.9% IV 1,000 ML 999 ML IV CONT (17:53)
[2022-10-29] MEDS: ACETAMINOPHEN 500 MG TABLET 1000 MG PO (18:45)
== END 2022-10-29 19:35 | disposition home or self-care (01) ==
PROVIDERS: Emergency Medicine; Emergency Provider Physician Assistant; PCP Internal Medicine
DX: N30.01 Acute cystitis with hematuria (principal); N13.30 Unspecified hydronephrosis; I13.0 Hypertensive heart and chronic kidney disease with heart failure and stage 1 through stage 4 chronic kidney disease, or unspecified chronic kidney disease; N18.9 Chronic kidney disease, unspecified; I50.30 Unspecified diastolic (congestive) heart failure; I48.0 Paroxysmal atrial fibrillation; I27.20 Pulmonary hypertension, unspecified; I08.0 Rheumatic disorders of both mitral and aortic valves; N20.0 Calculus of kidney; E78.5 Hyperlipidemia, unspecified; E03.9 Hypothyroidism, unspecified; Z96.651 Presence of right artificial knee joint; Z87.442 Personal history of urinary calculi; Z87.891 Personal history of nicotine dependence; Z86.711 Personal history of pulmonary embolism; Z98.49 Cataract extraction status, unspecified eye; Z90.710 Acquired absence of both cervix and uterus; Z90.722 Acquired absence of ovaries, bilateral; Z90.79 Acquired absence of other genital organ(s); Z96.0 Presence of urogenital implants
CPT/HCPCS: 36415; 74176; 80053; 81001; 83690; 85025; 85055; 87086; 96361; 96365; 99284; A9270; J0696; J7030

== ENCOUNTER 2022-11-25 00:05 | Day surgery (SDC) | payer MEDICARE, SELFPAY ==
--- NOTE | 2022-11-19 12:07 | PC.NURSE ---
Report to the Outpatient Waiting Room, entrance under the green pavilion located off [facility], at time _0700 on date 11/25/22 . Planned Procedure Time: ___0900 . Time changes happen often and if your time is changed the preop area will call you the afternoon before. - You and your visitor will be asked to self-screen and do not enter if you have any COVID symptoms. - A mask is optional within the hospital at this time. Patients may have clear liquids (water, carbonated beverages, clear teas, apple juice) until 3 hours prior to surgery with a maximum of 20 ounces. - No food from midnight until time of surgery - Infants may have breast milk until 4 hours before surgery, infant formula 6 hours prior to surgery. - Children will be allowed to drink immediately following surgery. If applicable, please bring a bottle or sippy cup to assist with drinking. Juice, water, soda, and popsicles are readily available. For infants on formula, please bring formula the day of surgery. Pacifiers are allowed. Take the following medications with a SIP of water the morning of surgery: __BUPROPION,LEVOTHYROXINE,SOTALOL DO NOT STOP ANY OF YOUR OTHER PRESCRIPTION MEDICATIONS PRIOR TO SURGERY ?EXCEPT THE FOLLOWING Medications to discontinue per physician ___PT STATES ELIQUIS 2 DAYS PRE OP PER DR SCHRADER.LAST DOSE 11/23/22 ALL VITAMINS 3 DAYS PRE OP 11/22/22 Please no make-up, nail bangladeshi, hairspray, perfume, deodorant, or body powder the day of surgery. No jewelry (including any body piercings) or valuables the day of surgery, leave them at home. Please take a shower or bath the night before, or the morning of, surgery with an antibacterial soap. Wear comfortable, loose fitting clothing. Children are encouraged to wear pajamas. - Jewelry must be removed prior to entering the operating room. Rings and piercings that are not removed may be cut off. - The hospital will not accept responsibility for valuables. - Please leave all valuables, including medications, at home the day of surgery. If you are going home after surgery, a licensed truck driver helper must drive you home. - NO public transportation without another adult if you receive anesthesia. - We recommend that an adult stay with you for 24 hours following discharge. - We also recommend that you do not drive, make important decision, drink alcoholic beverages, or take any drugs that were not prescribed by your health care provider for at least 24 hours after your discharge time. For Pediatric surgeries, we recommend two adults accompany the child home. Follow any additional instructions given to you from your surgeon. If you or anyone in your household have experienced Covid symptoms in the past week, please notify your surgeon or the nurse liaison at the phone number below for possible testing. Telephone instructions given to __PATIENT and asked if any additional questions and then verbalized understanding. Patient advised to call surgeon office or pre surgery nurse liaison [phone] if any additional questions.
[2022-11-19 12:16] VITALS: BMI 23.1
--- NOTE | 2022-11-22 07:11 | PM.HPGS ---
History of Present Illness History of Present Illness Consent: Risks, benefits, and alternatives have been discussed and questions answered. Patient agrees to proceed with procedure. Chief complaint: Nephroliasis Gross Hematuria Narrative: Nelia Peterson is a 86 year old female with a known chronic UPJ obstruction that is managed with a indwelling left ureteral stent.? She presents today for cystoscopy with ureteral stent exchange.? She is aware the risk including, not limited to, hematuria an adverse cardiopulmonary event. Her stent was last changed in July 2022 at which time she required lithotripsy the proximal coil due to encrustation. Review of Systems Review of Systems: All systems reviewed & are unremarkable except as noted in HPI and below PMFSH Past Medical History Medical History Cerebral aneurysm Status post coil embolization. Chronic anemia Chronic kidney disease Current use of [facility] anticoagulation Degenerative disc disease Depression Diastolic congestive heart failure Dyslipidemia Endometriosis Heart failure with preserved ejection fraction EF was 60 to 65% in 07/2021. Hemorrhoids Histoplasmosis Hyperlipidemia Hypertension Hypothyroidism Intraoperative ureteral injury (07/2021) Kidney stones Including known right staghorn calculus. Mild aortic stenosis Mild pulmonary hypertension Mitral regurgitation mod to severe Moderate mitral regurgitation Nonspecific colitis Paroxysmal atrial fibrillation Pulmonary embolism Surgical History Surgical History History of arthroplasty of right knee History of cataract extraction History of colonoscopy with polypectomy History of cystoscopy History of lumbar surgery History of tonsillectomy and adenoidectomy History of total hysterectomy with bilateral salpingo-oophorectomy (BSO) Status post coil embolization of cerebral aneurysm Family History Family History Mother , in her 70s Hypertension Father Hypertension Acute myocardial infarction Social History Social History Social History: Surrogate decision maker: Seth Peterson, grandson. Code status: Full code. Smoking packs per day: 0.5 Smoking cigarettes per day: 10.0 Years smoked: 15 Smoking pack-years: 7.50 Smoking status: Former smoker Tobacco type: cigarettes Second hand tobacco smoke exposure: No Smoking end date: 06/06/79 Alcohol intake: never Drinks per week: 1 Alcohol use details: 6 oz of wine. Substance use: never Substance use type: does not use Lack of Transportation: No Lack of Food: Never True Current Housing: I Have Housing Concerned About Future Housing: No Difficulty Paying Gas/Electric Bills: No Difficulty Paying for Meds: No Currently Unemployed: No Education: High School Diploma/GED Difficulty w/ Childcare or Family Care: No Living arrangements: alone Additional living arrangements comments: as of September 2020. She and her had 3 children, all whom are . Additional occupation/education comments: Retired. Spiritual care concerns: No Meds Home Medications and Allergies Home Medications Medication Instructions Recorded Confirmed Type bupropion HCl 150 mg tablet,12 hr 150 mg PO BID 11/19/19 11/19/22 History sustained-release cholecalciferol (vitamin D3) 50 50 mcg PO DAILY 11/19/19 11/19/22 History mcg (2,000 unit) capsule (Vitamin D3) levothyroxine 50 mcg tablet 50 mcg PO QAM 11/19/19 11/19/22 History pravastatin 80 mg tablet 80 mg PO HS 11/19/19 11/19/22 History ferrous sulfate 325 mg (65 mg 325 mg PO BID #60 tabs 08/06/21 11/19/22 Rx iron) tablet tramadol 50 mg tablet 50 mg PO Q6H PRN pain #20 tabs 07/30/22 11/19/22 R
--- NOTE | ~2022-11-25 | XR_ITS ---
EXAMINATION: XR retrograde pyelo w/stent LT DATE: 11/25/2022 08:54 INDICATION: Left intraureteral stent exchange with retrograde pyelogram TECHNIQUE: 108 fluoroscopic images of the abdomen and pelvis were obtained during procedure performed by Dr. Shaikh. Radiologist was not present for the imaging or procedure. The amount of fluoroscopy t tnoia used during this procedure was 1.4 minutes. COMPARISON: CT dated 10/29/2022 and KUB dated 09/22/2022 FINDINGS: Hands And Dial Inspector images redemonstrate a left internal ureteral stent which is in expected position. There is sofie e residual excreted contrast in the right renal pelvis with mild right hydronephrosis. Subsequent jignesh ges demonstrate removal of the stent and advancement of a catheter into the mid left ureter. Retrogra de contrast injection demonstrates a short high-grade stenosis of the proximal to mid left ureter wit h moderate to severe more proximal left hydroureteronephrosis. Fall images demonstrate placement of a new stent again in expected position with loops formed in the left renal pelvis and in the bladder. IMPRESSION: 1. Focal high-grade stenosis in the proximal to mid left ureter with exchange of a left internal sten t which is in expected position on the final images. Reviewed, dictated and finalized at location A. IMPRESSION: 1. Focal high-grade stenosis in the proximal to mid left ureter with exchange o f a left internal stent which is in expected position on the final images.
--- NOTE | 2022-11-25 06:30 | WPDHPUPDATE1 ---
History and Physical Update Update Date/Time: 11/25/22 06:30 History and Physical has been reviewed, including an updated exam of the patient. There are NO changes in the patient's condition. Risks, benefits, and alternatives have been discussed and questions answered. Patient agrees to proceed with procedure.
[2022-11-25 07:06] VITALS: BP 142/67; PULSE 61; RESP 14; TEMP 36.9; O2SAT 100
--- NOTE | 2022-11-25 07:58 | WPDANESEPPF ---
Anes - Initial Pre Proc Eval Procedure: Operation Date: 11/25/22 09:00 Proposed Procedures p Cystoscopy with Left Stent Exchange - Nabil Shaikh MD Date/Time: 11/25/22 07:58 Surgeon: Nabil Shaikh MD Pre Op Diagnosis: Nephroliasis Gross Hematuria Patient Data Age: 87 Gender: F Height: 1.63 m Weight: 63.2 kg Last Vital Signs Temp 36.9 C 11/25/22 07:06 Pulse 61 11/25/22 07:06 Resp 14 11/25/22 07:06 BP 142/67 H 11/25/22 07:06 Pulse Ox 100 11/25/22 07:06 O2 Del Method Room Air 11/25/22 07:06 Allergies Allergy/AdvReac Type Severity Reaction Status Date / Time heparin Allergy Mild Other,Nause Verified 11/25/22 07:24 a enoxaparin Allergy Unknown Other Verified 11/25/22 07:24 codeine AdvReac Mild Nausea Verified 11/25/22 07:24 hydrocodone AdvReac Mild Nausea Verified 11/25/22 07:24 Home Medications Medication Instructions Recorded Confirmed Type bupropion HCl 150 mg tablet,12 hr 150 mg PO BID 11/19/19 11/25/22 History sustained-release cholecalciferol (vitamin D3) 50 50 mcg PO DAILY 11/19/19 11/25/22 History mcg (2,000 unit) capsule (Vitamin D3) levothyroxine 50 mcg tablet 50 mcg PO QAM 11/19/19 11/25/22 History pravastatin 80 mg tablet 80 mg PO HS 11/19/19 11/25/22 History ferrous sulfate 325 mg (65 mg 325 mg PO BID #60 tabs 08/06/21 11/25/22 Rx iron) tablet tramadol 50 mg tablet 50 mg PO Q6H PRN pain #20 tabs 07/30/22 11/19/22 Rx sotalol 80 mg tablet 80 mg PO Q12HR #60 tabs 09/24/22 11/25/22 Rx apixaban 2.5 mg tablet (Eliquis) 2.5 mg PO BID 11/19/22 11/25/22 History Patient hx anesthesia problems: none Family hx anesthesia problems: none Results Review: All pre-operative results and documents have been reviewed as part of the pre-operative evaluation. [facility] Past Medical History Medical History Cerebral aneurysm Status post coil embolization. Chronic anemia Chronic kidney disease Current use of [facility] Degenerative disc disease Depression Diastolic congestive heart failure Dyslipidemia Endometriosis Heart failure with preserved ejection fraction EF was 60 to 65% in 07/2021. Hemorrhoids Histoplasmosis Hyperlipidemia Hypertension Hypothyroidism Intraoperative ureteral injury (07/2021) Kidney stones Including known right staghorn calculus. Mild aortic stenosis Mild pulmonary hypertension Mitral regurgitation mod to severe Moderate mitral regurgitation Nonspecific colitis Paroxysmal atrial fibrillation Pulmonary embolism Surgical History Surgical History History of arthroplasty of right knee History of cataract extraction History of colonoscopy with polypectomy History of cystoscopy History of lumbar surgery History of tonsillectomy and adenoidectomy History of total hysterectomy with bilateral salpingo-oophorectomy (BSO) Status post coil embolization of cerebral aneurysm Family History Family History Mother , in her 70s Hypertension Father Hypertension Acute myocardial infarction Social History Social History Social History: Surrogate decision maker: Seth Nicholas, grandson. Code status: Full code. Smoking packs per day: 0.5 Smoking cigarettes per day: 10.0 Years smoked: 15 Smoking pack-years: 7.50 Smoking status: Former smoker Tobacco type: cigarettes Second hand tobacco smoke exposure: No Smoking end date: 06/06/79 Alcohol intake: never Drinks per week: 1 Alcohol use details: 6 oz of wine. Substance use: never Substance use type: does not use Lack of Transportation: No Lack of Food: Never True Current Housing: I Have Housing Concerned About Future Housing: No Difficulty Paying Gas/Electric Bills: No Difficulty Paying for
[2022-11-25] MEDS: LACTATED RINGERS 1,000 ML 30 ML IV CONT (08:15)
[2022-11-25] MEDS: ceFAZolin 2 GM/D5W 50 ML 2 GM/50 ML BAG IVPB (08:23)
[2022-11-25] MEDS: LIDOCAINE HCL 2% GEL UROJET 10 ML PKG MUCOUS MEM (08:44)
--- NOTE | 2022-11-25 08:49 | W.PM.PROC2 ---
Procedure Note - Detailed Date of Procedure 11/25/22 Pre-op Diagnosis Left UPJ obstruction Post-op Diagnosis Same Procedure Performed cystoscopy, left ureteral stent exchange, left retrograde pyelogram Surgeon Nabil Shaikh MD Anesthesia MAC Description of Procedure Patient is brought to the operative suite where she has prepped draped in routine sterile fashion while in dorsal lithotomy position. 2% xylocaine jelly was introduced intraurethrally and systemic sedation is administered per the anesthesia department. Using a 16 F flexible cystoscope the tip of the indwelling stent is grasped and brought to the external urethral meatus. A 0.035 in glidewire was advanced into the renal pelvis. Angiographic catheter was used to obtain a retrograde pyelogram. A new 4.8 F variable length stent is positioned with the proximal coil in renal pelvis and distal coil in the bladder. Scopes and wires removed she tolerated the procedure well. The stent was placed 4 months ago and showed mild early incrustation. I think we will keep our stent exchange interval at 4 months Pathology None sent Complications No immediate complications Condition Stable
[2022-11-25 08:55] VITALS: BP 149/86; PULSE 73; RESP 16; O2SAT 100
[2022-11-25 09:25] VITALS: BP 164/93; PULSE 92; RESP 16
== END 2022-11-25 10:05 | disposition home or self-care (01) ==
PROVIDERS: PCP Internal Medicine; Visit Provider Urology
PROC: (CPT 52310; principal; 2022-11-25 09:00)
DX: N13.5 Crossing vessel and stricture of ureter without hydronephrosis (principal); I13.0 Hypertensive heart and chronic kidney disease with heart failure and stage 1 through stage 4 chronic kidney disease, or unspecified chronic kidney disease; I50.30 Unspecified diastolic (congestive) heart failure; N18.9 Chronic kidney disease, unspecified; E78.5 Hyperlipidemia, unspecified; E03.9 Hypothyroidism, unspecified; D64.9 Anemia, unspecified; F32.A Depression, unspecified; I48.0 Paroxysmal atrial fibrillation; Z86.711 Personal history of pulmonary embolism; Z79.01 Long term (current) use of anticoagulants; Z87.891 Personal history of nicotine dependence
CPT/HCPCS: 52332; 74420; C1758; C1769; C2617; J0690; J2704; J7120; Q9966

== ENCOUNTER 2023-03-21 12:12 | Outpatient (CLI) | payer MEDICARE, SELFPAY ==
[2023-03-21 12:57] LABS: Hemoglobin 14.6 g/dL (12.0-15.0)
== END 2023-03-21 12:13 | disposition home or self-care (01) ==
LOC: ANHSURGERY 12:15
PROVIDERS: Anesthesiology; PCP Internal Medicine; Visit Provider Urology
DX: Z01.818 Encounter for other preprocedural examination (principal); D64.9 Anemia, unspecified
CPT/HCPCS: 36415; 85014; 85018

== ENCOUNTER 2023-03-24 00:59 | Day surgery (SDC) | payer MEDICARE, SELFPAY ==
[2023-03-15 15:12] VITALS: BMI 23.1
--- NOTE | 2023-03-15 15:18 | PC.NURSE ---
PRE-OP INSTRUCTIONS, PLEASE READ CAREFULLY Report to the Outpatient Waiting Room, entrance under the green pavilion located off [facility], at time _1100_ on date _03/24/23_. Planned Procedure Time: _1 PM_. Time changes happen often and if your time is changed the preop area will call you the afternoon before. - You and your visitor will be asked to self-screen and do not enter if you have any COVID symptoms. - A mask is optional within the hospital at this time. Patients may have clear liquids (water, carbonated beverages, clear teas, apple juice) until 3 hours prior to surgery with a maximum of 20 ounces. - No food from midnight until time of surgery Take the following medications with a SIP of water the morning of surgery: _BUPROPION, LEVOTHYROXINE, SOTALOL, & TRAMADOL IF NEEDED_ DO NOT STOP ANY OF YOUR OTHER PRESCRIPTION MEDICATIONS PRIOR TO SURGERY ?EXCEPT THE FOLLOWING Medications to discontinue - _ELIQUIS PER DR. SCHRADER'S INSTRUCTIONS-STATES 2 DAYS PRIOR TO SURGERY, Date to take last dose 03/21/23_ Please no make-up, nail welsh, hairspray, perfume, deodorant, or body powder the day of surgery. No jewelry (including any body piercings) or valuables the day of surgery, leave them at home. Please take a shower or bath the night before, or the morning of, surgery with an antibacterial soap. Wear comfortable, loose fitting clothing. - Jewelry must be removed prior to entering the operating room. Rings and piercings that are not removed may be cut off. - The hospital will not accept responsibility for valuables. - Please leave all valuables, including medications, at home the day of surgery. If you are going home after surgery, a licensed jinrikisha driver must drive you home. - NO public transportation without another adult if you receive anesthesia. - We recommend that an adult stay with you for 24 hours following discharge. - We also recommend that you do not drive, make important decision, drink alcoholic beverages, or take any drugs that were not prescribed by your health care provider for at least 24 hours after your discharge time. Follow any additional instructions given to you from your surgeon. If you or anyone in your household have experienced Covid symptoms in the past week, please notify your surgeon or the nurse liaison at the phone number below for possible testing. Telephone instructions given to _PATIENT_and asked if any additional questions and then verbalized understanding. Patient advised to call surgeon office or pre surgery nurse liaison [phone] if any additional questions.
--- NOTE | 2023-03-17 07:29 | PM.HPGS ---
History of Present Illness History of Present Illness Consent: Risks, benefits, and alternatives have been discussed and questions answered. Patient agrees to proceed with procedure. Chief complaint: left UPJ obstruction Narrative: Nelia Peterson is a 87 year old female with a known chronic UPJ obstruction that is managed with a indwelling left ureteral stent.? She presents today for cystoscopy with ureteral stent exchange.? She is aware the risk including, not limited to, hematuria an adverse cardiopulmonary event. ? Her stent was last changed in July 2022 at which time she required lithotripsy the proximal coil due to encrustation. Review of Systems Review of Systems: All systems reviewed & are unremarkable except as noted in HPI and below PMFSH Past Medical History Medical History Cerebral aneurysm Status post coil embolization. 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 Hemorrhoids Histoplasmosis Hyperlipidemia Hypertension Hypothyroidism Intraoperative ureteral injury (07/2021) Kidney stones Including known right staghorn calculus. Mild aortic stenosis Mild pulmonary hypertension Mitral regurgitation mod to severe Moderate mitral regurgitation Nonspecific colitis Paroxysmal atrial fibrillation Pulmonary embolism Surgical History Surgical History History of arthroplasty of right knee History of cataract extraction History of colonoscopy with polypectomy History of cystoscopy History of lumbar surgery History of tonsillectomy and adenoidectomy History of total hysterectomy with bilateral salpingo-oophorectomy (BSO) Status post coil embolization of cerebral aneurysm Family History Family History Mother , in her 70s Hypertension Father Hypertension Acute myocardial infarction Social History Social History Social History: Surrogate decision maker: Seth Peterson, grandson. Code status: Full code. Smoking packs per day: 0.5 Smoking cigarettes per day: 10.0 Years smoked: 15 Smoking pack-years: 7.50 Smoking status: Former smoker Tobacco type: cigarettes Second hand tobacco smoke exposure: No Smoking end date: 06/06/79 Alcohol intake: current Drinks per week: 1 Alcohol use details: 6 oz of wine. Substance use: never Substance use type: does not use Lack of Transportation: No Lack of Food: Never True Current Housing: I Have Housing Concerned About Future Housing: No Difficulty Paying Gas/Electric Bills: No Difficulty Paying for Meds: No Currently Unemployed: No Education: High School Diploma/GED Difficulty w/ Childcare or Family Care: No Living arrangements: alone Additional living arrangements comments: as of September 2020. She and her had 3 children, all whom are . Additional occupation/education comments: Retired. Spiritual care concerns: No Meds Home Medications and Allergies Home Medications Medication Instructions Recorded Confirmed Type bupropion HCl 150 mg tablet,12 hr 150 mg PO BID 11/19/19 03/15/23 History sustained-release cholecalciferol (vitamin D3) 50 50 mcg PO DAILY 11/19/19 03/15/23 History mcg (2,000 unit) capsule (Vitamin D3) levothyroxine 50 mcg tablet 50 mcg PO QAM 11/19/19 03/15/23 History pravastatin 80 mg tablet 80 mg PO HS 11/19/19 03/15/23 History ferrous sulfate 325 mg (65 mg 325 mg PO BID #60 tabs 08/06/21 03/15/23 Rx iron) tablet tramadol 50 mg tablet 50 mg PO Q6H PRN pain #20 tabs 07/30/22 03/15/23 Rx sotalol 80 mg tablet 80 m
--- NOTE | ~2023-03-24 | XR_ITS ---
EXAMINATION: XR retrograde pyelo w/stent LT DATE: 03/24/2023 13:06 INDICATION: Left internal ureteral stent placement TECHNIQUE: Fluoroscopic images from a left internal ureteral stent placement are submitted for review . 596 seconds of fluoroscopy of fluoroscopy time. FINDINGS: There is a left double-J internal ureteral stent projecting in expected position, with proximal [place] loop at the level of the renal pelvis and distal loop in the pelvis within the bladder lumen. IMPRESSION: 1. Left internal ureteral stent placement. Please refer to real-time procedural findings for details . Reviewed, dictated and finalized at location A. IMPRESSION: 1. Left internal ureteral stent placement. Please refer to real-time procedura l findings for details.
[2023-03-24 10:58] VITALS: BP 177/74; PULSE 59; RESP 18; TEMP 36.4; O2SAT 100
--- NOTE | 2023-03-24 11:20 | WPDANESEPPF ---
Anes - Initial Pre Proc Eval Procedure: Operation Date: 03/24/23 13:15 Proposed Procedures p Cystoscopy, Left Retrograde Pyelogram, Left Ureteral Stent Exchange - Nabil Shaikh MD Date/Time: 03/24/23 11:20 Surgeon: Nabil Shaikh MD Pre Op Diagnosis: left UPJ obstruction Patient Data Age: 87 Gender: F Height: 1.63 m Weight: 61.05 kg Last Vital Signs Temp 36.4 C L 03/24/23 10:58 Pulse 59 L 03/24/23 10:58 Resp 18 03/24/23 10:58 BP 177/74 H 03/24/23 10:58 Pulse Ox 100 03/24/23 10:58 O2 Del Method Room Air 03/24/23 10:58 Allergies Allergy/AdvReac Type Severity Reaction Status Date / Time heparin Allergy Mild Other,Nause Verified 03/15/23 15:12 a enoxaparin Allergy Unknown Other Verified 03/15/23 15:12 codeine AdvReac Mild Nausea Verified 03/15/23 15:12 hydrocodone AdvReac Mild Nausea Verified 03/15/23 15:12 Home Medications Medication Instructions Recorded Confirmed Type bupropion HCl 150 mg tablet,12 hr 150 mg PO BID 11/19/19 03/15/23 History sustained-release cholecalciferol (vitamin D3) 50 50 mcg PO DAILY 11/19/19 03/15/23 History mcg (2,000 unit) capsule (Vitamin D3) levothyroxine 50 mcg tablet 50 mcg PO QAM 11/19/19 03/15/23 History pravastatin 80 mg tablet 80 mg PO HS 11/19/19 03/15/23 History ferrous sulfate 325 mg (65 mg 325 mg PO BID #60 tabs 08/06/21 03/15/23 Rx iron) tablet tramadol 50 mg tablet 50 mg PO Q6H PRN pain #20 tabs 07/30/22 03/15/23 Rx sotalol 80 mg tablet 80 mg PO Q12HR #60 tabs 09/24/22 03/15/23 Rx apixaban 2.5 mg tablet (Eliquis) 2.5 mg PO BID 11/19/22 03/15/23 History cephalexin 500 mg capsule 500 mg Q6H 03/15/23 03/15/23 History Patient hx anesthesia problems: none Family hx anesthesia problems: none Results Review: All pre-operative results and documents have been reviewed as part of the pre-operative evaluation. [facility] Past Medical History Medical History Cerebral aneurysm Status post coil embolization. Chronic anemia Chronic kidney disease Current use of long-term anticoagulation Degenerative disc disease Depression Diastolic congestive heart failure Dyslipidemia Endometriosis Heart failure with preserved ejection fraction EF was 60 to 65% in 07/2021. Hemorrhoids Histoplasmosis Hyperlipidemia Hypertension Hypothyroidism Intraoperative ureteral injury (07/2021) Kidney stones Including known right staghorn calculus. Mild aortic stenosis Mild pulmonary hypertension Mitral regurgitation mod to severe Moderate mitral regurgitation Nonspecific colitis Paroxysmal atrial fibrillation Pulmonary embolism Surgical History Surgical History History of arthroplasty of right knee History of cataract extraction History of colonoscopy with polypectomy History of cystoscopy History of lumbar surgery History of tonsillectomy and adenoidectomy History of total hysterectomy with bilateral salpingo-oophorectomy (BSO) Status post coil embolization of cerebral aneurysm Family History Family History Mother , in her 70s Hypertension Father Hypertension Acute myocardial infarction Social History Social History Social History: Surrogate decision maker: Seth Petersongrandramon. Code status: Full code. Smoking packs per day: 0.5 Smoking cigarettes per day: 10.0 Years smoked: 15 Smoking pack-years: 7.50 Smoking status: Former smoker Tobacco type: cigarettes Second hand tobacco smoke exposure: No Smoking end date: 06/06/79 Alcohol intake: current Drinks per week: 1 Alcohol use details: 6 oz of wine. Substance use: never Substance use type: does not use Lack of Transportation: No Lack of Food: Never True Current Housing: I Have Housing Concerned
--- NOTE | 2023-03-24 12:25 | WPDHPUPDATE1 ---
History and Physical Update Update Date/Time: 03/24/23 12:25 History and Physical has been reviewed, including an updated exam of the patient. There are NO changes in the patient's condition. Risks, benefits, and alternatives have been discussed and questions answered. Patient agrees to proceed with procedure.
[2023-03-24] MEDS: ceFAZolin 2 GM/D5W 50 ML 2 GM/50 ML BAG IVPB (12:29)
[2023-03-24] MEDS: LIDOCAINE HCL 2% GEL UROJET 10 ML PKG MUCOUS MEM (12:52)
[2023-03-24 13:08] VITALS: BP 131/62; PULSE 60; RESP 18
--- NOTE | 2023-03-24 13:14 | W.PM.PROC2 ---
Procedure Note - Detailed Date of Procedure 03/24/23 Pre-op Diagnosis Left UPJ obstruction Post-op Diagnosis Same Procedure Performed Cystoscopy, left RPG, left ureteral stent replacement Surgeon Nabil Shaikh MD Anesthesia General Description of Procedure Patient is brought to the operative suite where? she has prepped draped in routine sterile fashion while in dorsal lithotomy position.? 2% xylocaine jelly was introduced intraurethrally and systemic sedation is administered per the anesthesia department.? Using a 16 F flexible cystoscope the tip of the indwelling stent is grasped and brought to the external urethral meatus.? A 0.035 in glidewire was advanced into the renal pelvis.? Angiographic catheter was used to obtain a retrograde pyelogram.? A new 4.8 F variable length stent is positioned with the proximal coil in renal pelvis and distal coil in the bladder.? Scopes and wires removed she tolerated the procedure well.? The stent was placed 4 months ago and showed mild early incrustation.? I think we will keep our stent exchange interval at 4 months Estimated Blood Loss 0 Urine Output 0 Drains Yes Packing No Pathology None sent
[2023-03-24 13:35] VITALS: BP 131/62; PULSE 60; RESP 18
[2023-03-24 14:05] VITALS: BP 153/73; PULSE 60; RESP 18
== END 2023-03-24 14:20 | disposition home or self-care (01) ==
PROVIDERS: PCP Internal Medicine; Visit Provider Urology
PROC: (CPT 52352; principal; 2023-03-24 13:15)
DX: N13.5 Crossing vessel and stricture of ureter without hydronephrosis (principal); D64.9 Anemia, unspecified; I13.0 Hypertensive heart and chronic kidney disease with heart failure and stage 1 through stage 4 chronic kidney disease, or unspecified chronic kidney disease; I50.30 Unspecified diastolic (congestive) heart failure; N18.9 Chronic kidney disease, unspecified; E78.5 Hyperlipidemia, unspecified; E03.9 Hypothyroidism, unspecified; I48.0 Paroxysmal atrial fibrillation; I34.0 Nonrheumatic mitral (valve) insufficiency; F32.A Depression, unspecified; Z86.711 Personal history of pulmonary embolism; Z79.01 Long term (current) use of anticoagulants; Z87.891 Personal history of nicotine dependence
CPT/HCPCS: 52332; 36415; 74420; 85014; 85018; C1758; C1769; C2617; J0690; J2405; J2704; Q9966

== ENCOUNTER 2023-05-08 18:27 | Observation (INO) | payer MEDICARE, SELFPAY ==
--- NOTE | ~2023-05-08 | CT_ITS ---
Non-contrast CT scan of the Abdomen and Pelvis Clinical indication: Abdominal pain Technique: 2.5 mm axial scans were obtained through the abdomen and pelvis without intravenous or or al contrast. Dose reduction technique was used on this scan by utilizing automated exposure control a nd iterative reconstruction technique. The dose-length product (DLP) was 306.99 mGy-cm. COMPARISON: 10/29/2022 Findings: Images through the lung bases reveal bibasilar calcified granulomas. There is a large, extensive staghorn calculus of the right kidney. There are small nonobstructing sto leonel at the left lower renal pole. There is moderate to severe left hydronephrosis, with left ureteral stent in place. No definite stones seen along the course of the stent in the left ureter. No right u reteral stone evident. The liver, pancreas, and adrenals appear normal. Calcified gallstones are present. Calcified splenic granulomas are present. There are atherosclerotic calcifications of the aorta. There is no evidence of bowel obstruction. There is wall thickening of sigmoid colon with pericolonic inflammatory change and diverticulosis, consistent with acute diverticulitis. No abscess or free air evident. Images through the pelvis were performed. There is no evidence of ascites or lymphadenopathy. Urinary bladder unremarkable aside from the distal portion of the stent present. No pelvic mass evident. Impression: Acute sigmoid diverticulitis. No abscess or free air. Large staghorn calculus of the right kidney. Moderate to severe left hydronephrosis with left ureteral stent in place. Small nonobstructing left l ower pole renal stones. Reviewed, dictated and finalized at [facility]. [employer] Impression: Acute sigmoid diverticulitis. No abscess or free air. Large staghorn calculus of the right kidney. Moderate to severe left hydronephrosis with left ureteral stent in place. Small nonobstructing left lower pole renal stones.
[2023-05-08 18:33] VITALS: BP 172/61; PULSE 50; RESP 20; TEMP 36.7; O2SAT 100
[2023-05-08 23:05] LABS: Appearance Urine Cloudy (Clear); Bacteria Urine 4+ /hpf; Bilirubin Urine Negative (Negative); Blood Urine 3+ (Negative); Color Urine Yellow (Yellow); Glucose Urine UA Negative (Negative); Ketones Urine Trace mg/dL (Negative); Leukocyte Esterase Ur 3+ LEU/UL (Negative); Nitrate Urine Positive (Negative); Non Pathogenic Casts 0-2; Protein Urine 3+ mg/dL (Negative); RBC Urine >100 /hpf (0-2); Specific Grav Ur 1.015 (1.001-1.035); Squamous Epithelial Cell Urine None seen /hpf (Few); Urobilinogen Urine 0.2 mg/dL (<2.0); WBC Urine >100 /hpf
[2023-05-08 23:11] LABS: Add Urine Microscopic? YES
[2023-05-08 23:22] VITALS: BP 158/86; PULSE 111; RESP 19; O2SAT 98
[2023-05-09] VITALS (8 sets, daily range): BP systolic 129–153; BP diastolic 49–95; PULSE 74–120; RESP 16–20; TEMP 36.3–36.8; O2SAT 90–100; BMI 22.3
[2023-05-09 00:40] LABS: Basophils Absolute Auto 0.1 K/mm3 (0.0-0.1); Basophils Percent Auto 0.4 % (0.2-1.2); Eosinophils Absolute Auto 0.1 K/mm3 (0-0.3); Eosinophils Percent Auto 0.8 % (0-4.4); Hematocrit 46.8 % (37.0-47.0); Hemoglobin 14.9 g/dL (12.0-15.0); Immature Granulocyte Absolute 0.04 K/mm3 (0.00-0.031); Immature Granulocyte Percent A 0.3 % (0-0.5); Lymphocytes Absolute Auto 1.43 K/mm3 (0.9-3.2); Lymphocytes Percent Auto 10.9 % (18.3-44.2); Mean Corpuscular HGB Conc 31.8 g/dl (32-36); Mean Corpuscular Volume 97.5 fl (80-100); Mean Platelet Volume 10.6 fl (7.4-10.4); Monocytes Absolute Auto 1.1 K/mm3 (0.1-0.6); Monocytes Percent Auto 8.4 % (2.6-8.5); Neutrophils Absolute Auto 10.4 K/mm3 (1.3-6.7); Neutrophils Percent Auto 79.2 % (45.5-73.1); Platelet Count Result 208 k/mm3 (150-375); Red Cell Distribution Width 13.3 % (11.5-14.5); White Blood Count 13.1 K/mm3 (4.5-10.0)
--- NOTE | 2023-05-09 01:11 | ED.ABDPAIN ---
HPI - Abdominal Pain General Chief Complaint: Abdominal Pain Stated Complaint: abdpain x4 days Time Seen by Provider: 05/08/23 23:00 History of Present Illness HPI narrative: Patient is a 67-year-old female who presents emerged from with chief complaint abdominal pain. Patient reports that she has a chronic ureteral stent and reports that she has pain throughout her abdomen is benign with good comfortable. Related Data Home Medications Medication Instructions Recorded Confirmed bupropion HCl 150 mg tablet,12 hr 150 mg PO BID 11/19/19 04/18/23 sustained-release cholecalciferol (vitamin D3) 50 50 mcg PO DAILY 11/19/19 04/18/23 mcg (2,000 unit) capsule (Vitamin D3) levothyroxine 50 mcg tablet 50 mcg PO QAM 11/19/19 04/18/23 pravastatin 80 mg tablet 80 mg PO HS 11/19/19 04/18/23 apixaban 2.5 mg tablet (Eliquis) 2.5 mg PO BID 11/19/22 04/18/23 cephalexin 500 mg capsule 500 mg Q6H 03/15/23 04/18/23 Allergies Allergy/AdvReac Type Severity Reaction Status Date / Time heparin Allergy Mild Other,Nause Verified 05/08/23 23:26 a enoxaparin Allergy Unknown Other Verified 05/08/23 23:26 codeine AdvReac Mild Nausea Verified 05/08/23 23:26 hydrocodone AdvReac Mild Nausea Verified 05/08/23 23:26 Review of Systems Review of Systems: A 10 system review of systems was completed on the patient and is negative except for what is stated in the HPI. Nursing and ancillary documentation was reviewed. [facility] Past Medical History Medical History Cerebral aneurysm Status post coil embolization. Chronic anemia Chronic kidney disease Current use of shelter anticoagulation Degenerative disc disease Depression Diastolic congestive heart failure Dyslipidemia Endometriosis Heart failure with preserved ejection fraction EF was 60 to 65% in 07/2021. Hemorrhoids Histoplasmosis Hyperlipidemia Hypertension Hypothyroidism Intraoperative ureteral injury (07/2021) Kidney stones Including known right staghorn calculus. Mild aortic stenosis Mild pulmonary hypertension Mitral regurgitation mod to severe Moderate mitral regurgitation Nonspecific colitis Paroxysmal atrial fibrillation Pulmonary embolism Surgical History Surgical History History of arthroplasty of right knee History of cataract extraction History of colonoscopy with polypectomy History of cystoscopy History of lumbar surgery History of tonsillectomy and adenoidectomy History of total hysterectomy with bilateral salpingo-oophorectomy (BSO) Status post coil embolization of cerebral aneurysm Family History Family History Mother , in her 70s Hypertension Father Hypertension Acute myocardial infarction Social History Social History Social History: Surrogate decision maker: Seth grand Nicholasramon. Code status: Full code. Smoking packs per day: 0.5 Smoking cigarettes per day: 10.0 Years smoked: 15 Smoking pack-years: 7.50 Smoking status: Former smoker Tobacco type: cigarettes Second hand tobacco smoke exposure: No Smoking end date: 06/06/79 Alcohol intake: current Drinks per week: 1 Alcohol use details: 6 oz of wine. Substance use: never Substance use type: does not use Lack of Transportation: No Lack of Food: Never True Current Housing: I Have Housing Concerned About Future Housing: No Difficulty Paying Gas/Electric Bills: No Difficulty Paying for Meds: No Currently Unemployed: No Education: High School Diploma/GED Difficulty w/ Childcare or Family Care: No Living arrangements: alone Additional living arrangements comments: as of September 2020. She and her had 3 children, all whom are . Additional occupa
[2023-05-09] MEDS: ONDANSETRON INJ 4 MG/2 ML VIAL IV PUSH (01:29)
[2023-05-09] MEDS: MORPHINE SULFATE (*CRX) 4 MG/ML INJ 2 MG IV PUSH ×3 (01:29→11:33)
[2023-05-09] MEDS: SODIUM CHLORIDE 0.9% IV 1,000 ML 999 ML IV CONT (01:30)
[2023-05-09 03:01] LABS: Alanine Aminotransferase 8 U/L (6-35); Albumin Level 3.5 g/dL (3.5-5.1); Alkaline Phosphatase 76 U/L (38-126); Anion Gap 12 mmol/L (8-16); Aspartate Amino Transferase 17 U/L (14-36); Bilirubin,Total 0.6 mg/dL (0.2-1.3); Blood Urea Nitrogen 25 mg/dL (7-17); Calcium 8.9 mg/dL (8.4-10.2); Carbon Dioxide 19 mmol/L (22-30); Chloride 106 mmol/L (98-107); Estimated CRCL calculation 19 ml/min; Estimated Glomerular Filt Rate 28; Glucose 95 mg/dL (65-110); Lipase 229 U/L (23-300); Potassium 3.8 mmol/L (3.4-5.0); Sodium 137 mmol/L (137-145)
[2023-05-09] MEDS: metroNIDAZOLE 500 MG/ISO 100ML 500 MG/100 ML BAG 100 MG IVPB ×3 (04:36→18:27)
--- NOTE | 2023-05-09 05:19 | ADMGEN ---
This patient, Nelia Peterson, was admitted to [facility] Surg Room 314-01. Patient/family oriented to hospital policies and general routines including ID bracelet, bed and alarms, visiting hours, pain management, procedures, bathroom and other care routines, personal items, smoking policy, room service/diet, and visiting hours. Information on how to activate the Rapid Response Team has been discussed. Patient/Family are encouraged to report perceived risks to care and to ask questions if they do not understand what they are told or what they should do.
--- NOTE | 2023-05-09 08:12 | ECG_ITS ---
Measurements Intervals [place] Rate: 100 P: FL: 0 QRS: 10 QRSD: 90 T: 78 QT: 370 QTc: 478 Interpretive Statements ATRIAL FLUTTER WITH RAPID VENTRICULAR RESPONSE PREVIOUS ANTEROSEPTAL WA ABNORMAL ECG ATRIAL FLUTTER REPLACES SINUS RHYTHM Electronically Signed On 05-09-2023 15:21:56 SHEET ROCK APPLICATOR by Aurelio Chamberlain M.D.
[2023-05-09] MEDS: FERROUS SULFATE 325 MG TABLET DR PO (08:58)
[2023-05-09] MEDS: CHOLECALCIFEROL 1,000 UNITS TABLET 2000 UNITS PO (08:58)
[2023-05-09] MEDS: LEVOTHYROXINE SODIUM 50 MCG TABLET PO (08:58)
[2023-05-09] MEDS: SOTALOL HCL 80 MG TABLET PO ×2 (08:58→21:33)
--- NOTE | 2023-05-09 09:32 | PM.IMHP ---
H&P: HPI History of Present Illness Date/Time: 05/09/23 09:32 Chief Complaint: Abdominal pain with diverticulitis left sided severe hydronephrosis despite stent and right staghorn kidney stone and possible UTI Narrative: This is an 87-year-old female patient with a past history atrial fibrillation on Eliquis retention diastolic congestive CKD hyperlipidemia kidney stones PE degenerative disc disease and cerebral aneurysm status post coiling who is admitted to the hospital after seeking care for lower abdominal pain radiating around to the bilaterally. Patient has a history of recurrent urinary tract infections and has a left indwelling ureteral stent that is chronic and last changed 03/24/2023. Workup in the emergency department shows findings of urinary tract infection with moderate to severe left hydronephrosis, staghorn kidney stone in the right kidney without hydronephrosis, and findings of diverticulitis without perforation. Patient started on Rocephin and Flagyl by the emergency department. Patient reports surgical history pacemaker implanted, right knee replacement, hysterectomy coiling of one cerebral aneurysm and no treatment for another that is present. She also reports a sore on the anterior left leg that was due to be biopsied so she has been off Eliquis recently. Patient denies any chest pain difficulty breathing nausea vomiting constipation diarrhea bowel or bladder dysfunction. On exam she has tenderness the bladder left lower quadrant abdomen and left CVA tenderness. On auscultation she sounds to be in atrial fibrillation heart rate in the 90s. Review of Systems Review of Systems: All systems reviewed & are unremarkable except as noted in HPI and below PMFSH Past Medical History Medical History Cerebral aneurysm Status post coil embolization. Chronic anemia Chronic kidney disease Current use of terminal carman anticoagulation Degenerative disc disease Depression Diastolic congestive heart failure Dyslipidemia Endometriosis Heart failure with preserved ejection fraction EF was 60 to 65% in 07/2021. Hemorrhoids Histoplasmosis Hyperlipidemia Hypertension Hypothyroidism Intraoperative ureteral injury (07/2021) Kidney stones Including known right staghorn calculus. Mild aortic stenosis Mild pulmonary hypertension Mitral regurgitation mod to severe Moderate mitral regurgitation Nonspecific colitis Paroxysmal atrial fibrillation Pulmonary embolism Surgical History Surgical History History of arthroplasty of right knee History of cataract extraction History of colonoscopy with polypectomy History of cystoscopy History of lumbar surgery History of tonsillectomy and adenoidectomy History of total hysterectomy with bilateral salpingo-oophorectomy (BSO) Status post coil embolization of cerebral aneurysm Family History Family History Mother , in her 70s Hypertension Father Hypertension Acute myocardial infarction Social History Social History Social History: Surrogate decision maker: Seth Nicholas, grandson. Code status: Full code. Smoking packs per day: 0.5 Smoking cigarettes per day: 10.0 Years smoked: 15 Smoking pack-years: 7.50 Smoking status: Former smoker Tobacco type: cigarettes Second hand tobacco smoke exposure: No Smoking end date: 06/06/79 Alcohol intake: current Drinks per week: 1 Alcohol use details: 6 oz of wine. Substance use: never Substance use type: does not use Lack of Transportation: No Lack of Food: Never True Current Housing: I Have Housing Concerned About Future Housing: No Difficulty Paying Gas/Electric Bills: No Difficulty Paying for Meds: No Currently Unemployed: No Education: Master
[2023-05-09] MEDS: buPROPion HCL SR (12 HR) 150 MG TAB PO ×2 (10:10→21:33)
[2023-05-09] MEDS: APIXABAN 2.5 MG TABLET PO ×2 (10:12→21:33)
--- NOTE | 2023-05-09 15:33 | WPDURCON ---
Assessment and Plan Assessment and plan (1) Obstruction of left ureteropelvic junction (UPJ): Code(s): N13.5 - Crossing vessel and stricture of ureter without hydronephrosis Status: Acute Assessment and Plan: managed with chronic indwelling left ureteral stent. It was last changed [address] scan shows the stent to be in good position (2) Stone, kidney: Code(s): N20.0 - Calculus of kidney Status: Acute Assessment and Plan: chronic in nature. On the right side. Nonobstructive (3) Hydronephrosis, left: Code(s): N13.30 - Unspecified hydronephrosis Status: Acute Assessment and Plan: stable and due to chronic UPJ obstruction (4) Staghorn renal calculus: Code(s): N20.0 - Calculus of kidney Status: Acute Assessment and Plan: stable (5) Abnormal urinalysis: Code(s): R82.90 - Unspecified abnormal findings in urine Status: Acute Assessment and Plan: no prominent UTI symptoms. The abnormal urinalysis could be due to the presence of stone or stent. It could also be chronic colonization. Plan No urologic intervention planned at this time Urology Consult Note HPI Date Seen: 05/09/23 Requesting Physician: Antonina Zarco DO Primary Care Provider: Andrés ViverosMD Consult Narrative Narrative: Nelia Peterson is a 87 year old female she is known to our service. She is a [facility]. She has a known long-term right nonobstructing staghorn calculus. She has a left ureteral pelvic junction obstruction managed with internal ureteral stent. This was last changed 2 months ago. It is changed every 4 months. She is currently admitted the hospital for abdominal pain. CT scan shows diverticulitis. It also shows her stent to be in good position a. She has hydronephrosis of her kidney. This is chronic in nature and stable over previous CT scan. She has abnormal urinalysis. This is likely secondary to the stent. She does have a positive urine culture in the spring of [place]. She is asymptomatic for infection today. She notes no dysuria or blood in the urine. She has an abnormal urinalysis which could be due to the foreign body her urinary tract. Could be due to the stone. She is likely chronically colonized. Review of Systems Review of Systems: All systems reviewed & are unremarkable except as noted in HPI and below PMFSH Past Medical History Medical History Cerebral aneurysm Status post coil embolization. Chronic anemia Chronic kidney disease Current use of jail anticoagulation Degenerative disc disease Depression Diastolic congestive heart failure Dyslipidemia Endometriosis Heart failure with preserved ejection fraction EF was 60 to 65% in 07/2021. Hemorrhoids Histoplasmosis Hyperlipidemia Hypertension Hypothyroidism Intraoperative ureteral injury (07/2021) Kidney stones Including known right staghorn calculus. Mild aortic stenosis Mild pulmonary hypertension Mitral regurgitation mod to severe Moderate mitral regurgitation Nonspecific colitis Paroxysmal atrial fibrillation Pulmonary embolism Surgical History Surgical History History of arthroplasty of right knee History of cataract extraction History of colonoscopy with polypectomy History of cystoscopy History of lumbar surgery History of tonsillectomy and adenoidectomy History of total hysterectomy with bilateral salpingo-oophorectomy (BSO) Status post coil embolization of cerebral aneurysm Family History Family History Mother , in her 70s Hypertension Father Hypertension Acute myocardial infarction Social History Social History Social History: Surrogate de
[2023-05-09] MEDS: PRAVASTATIN SODIUM 20 MG TABLET 80 MG PO (21:33)
[2023-05-10] VITALS (8 sets, daily range): BP systolic 101–167; BP diastolic 41–102; PULSE 59–106; RESP 16–20; TEMP 36.2–36.6; O2SAT 94–100
[2023-05-10] MEDS: traMADol HCL (*CRX) 50 MG TABLET PO (00:09)
[2023-05-10] MEDS: metroNIDAZOLE 500 MG/ISO 100ML 500 MG/100 ML BAG 100 MG IVPB ×3 (02:12→18:15)
[2023-05-10] MEDS: MORPHINE SULFATE (*CRX) 2 MG/ML INJ IV PUSH ×3 (04:07→21:46)
[2023-05-10] MEDS: LEVOTHYROXINE SODIUM 50 MCG TABLET PO (05:20)
[2023-05-10 07:06] LABS: Basophils Percent Auto 0.5 % (0.2-1.2); Eosinophils Absolute Auto 0.2 K/mm3 (0-0.3); Eosinophils Percent Auto 2.8 % (0-4.4); Hematocrit 39.3 % (37.0-47.0); Hemoglobin 12.5 g/dL (12.0-15.0); Immature Granulocyte Absolute 0.03 K/mm3 (0.00-0.031); Immature Granulocyte Percent A 0.3 % (0-0.5); Immature Platelet Fraction Pct 2.4 % (0.9-11.2); Lymphocytes Absolute Auto 0.82 K/mm3 (0.9-3.2); Lymphocytes Percent Auto 9.4 % (18.3-44.2); Mean Corpuscular HGB Conc 31.8 g/dl (32-36); Mean Corpuscular Hemoglobin 30.6 pg (26-34); Mean Corpuscular Volume 96.3 fl (80-100); Mean Platelet Volume 9.9 fl (7.4-10.4); Monocytes Absolute Auto 0.7 K/mm3 (0.1-0.6); Monocytes Percent Auto 7.7 % (2.6-8.5); Neutrophils Absolute Auto 6.9 K/mm3 (1.3-6.7); Neutrophils Percent Auto 79.3 % (45.5-73.1); Platelet Count Result 132 k/mm3 (150-375); Red Blood Count 4.08 M/mm3 (4.2-5.4); Red Cell Distribution Width 12.9 % (11.5-14.5); White Blood Count 8.7 K/mm3 (4.5-10.0)
[2023-05-10 07:43] LABS: Alanine Aminotransferase 7 U/L (6-35); Albumin Level 3.3 g/dL (3.5-5.1); Alkaline Phosphatase 68 U/L (38-126); Anion Gap 10 mmol/L (8-16); Aspartate Amino Transferase 16 U/L (14-36); Bilirubin,Total 0.5 mg/dL (0.2-1.3); Blood Urea Nitrogen 23 mg/dL (7-17); Calcium 8.7 mg/dL (8.4-10.2); Carbon Dioxide 20 mmol/L (22-30); Chloride 103 mmol/L (98-107); Estimated CRCL calculation 19 ml/min; Estimated Glomerular Filt Rate 28; Glucose 84 mg/dL (65-110); Potassium 3.7 mmol/L (3.4-5.0); Sodium 133 mmol/L (137-145)
[2023-05-10] MEDS: FERROUS SULFATE 325 MG TABLET DR PO (09:52)
[2023-05-10] MEDS: buPROPion HCL SR (12 HR) 150 MG TAB PO ×2 (09:52→21:46)
[2023-05-10] MEDS: CHOLECALCIFEROL 1,000 UNITS TABLET 2000 UNITS PO (09:52)
[2023-05-10] MEDS: SOTALOL HCL 80 MG TABLET PO ×2 (09:53→21:46)
[2023-05-10] MEDS: APIXABAN 2.5 MG TABLET PO ×2 (09:53→21:46)
--- NOTE | 2023-05-10 12:40 | PM.IMPN ---
Progress Note: A&P Assessment and Plan (1) Acute UTI: Code(s): N39.0 - Urinary tract infection, site not specified Status: Acute Assessment and Plan: Bladder tenderness with urinalysis consistent with urinary tract infection. Moderate to severe left renal hydronephrosis with retained left ureteral stent in place last replaced on 03/24/2023. Urology consulted due to UA consistent with urinary tract infection, left severe hydronephrosis, and concern for stent obstruction. Appreciate recommendations. 05/10: Urology suspects colonization rather than acute UTI. Culture pending. (2) Diverticulitis: Code(s): K57.92 - Diverticulitis of intestine, part unspecified, without perforation or abscess without bleeding Status: Acute Assessment and Plan: Will continue treatment with antibiotics and pain control. Currently on Rocephin Flagyl. (3) Paroxysmal atrial fibrillation: Code(s): I48.0 - Paroxysmal atrial fibrillation Status: Acute Assessment and Plan: Heart rate in the 90s to low 100s without chest pain or shortness of breath. Patient is on Eliquis that has been on hold because she was supposed undergo biopsy wound on left isaacs. Eliquis dose given today. 05/10: HR down to 61 this afternoon. (4) Hydronephrosis: Qualifiers: Hydronephrosis type: unspecified Qualified Code(s): N13.30 - Unspecified hydronephrosis Code(s): N13.30 - Unspecified hydronephrosis Status: Chronic Assessment and Plan: Urology consulted and appreciate their evaluation. No intervention recommended at this time. UA findings may be related to indwelling stent and or kidney stone colonization. (5) Staghorn renal calculus: Code(s): N20.0 - Calculus of kidney Status: Chronic Assessment and Plan: Chronic right staghorn kidney stone no intervention recommended per Urology (6) Retained ureteral stent: Code(s): Z96.0 - Presence of urogenital implants Status: Chronic Assessment and Plan: No intervention recommended per Urology Plan Antibiotics and pain control for acute diverticulitis Urology does not feel UA represents acute infection, rather they think colonization is most likely Time Spent With Patient Time with patient: 25 - 35 minutes Subjective Date/time seen: 05/10/23 12:40 Interval history: 05/09: Abdominal pain with diverticulitis left sided severe hydronephrosis despite stent and right staghorn kidney stone and possible UTI This is an 87-year-old female patient with a past history atrial fibrillation on Eliquis retention diastolic congestive CKD hyperlipidemia kidney stones PE degenerative disc disease and cerebral aneurysm status post coiling who is admitted to the hospital after seeking care for lower abdominal pain radiating around to the bilaterally.? Patient has a history of recurrent urinary tract infections and has a left indwelling ureteral stent that is chronic and last changed 03/24/2023.? Workup in the emergency department shows findings of urinary tract infection with moderate to severe left hydronephrosis, staghorn kidney stone in the right kidney without hydronephrosis, and findings of diverticulitis without perforation.? Patient started on Rocephin and Flagyl by the emergency department.? Patient reports surgical history pacemaker implanted, right knee replacement, hysterectomy coiling of one cerebral aneurysm and no treatment for another that is present.? She also reports a sore on the anterior left leg that was due to be biopsied so she has been off Eliquis recently.? Patient denies any chest pain difficulty breathing nausea vomiting constipation diarrhea bowel or bladder dysfunction.? On exam she has tenderness the bladder left lower quadrant abdomen and left CVA tenderness.? On auscultation she sounds to be in atrial fibrillation heart rate in the 90s. 05/10: Patient reports she had another wave of lower abdominal pain with radiatio
[2023-05-10] MEDS: BISACODYL 5 MG TABLET EC PO (13:39)
--- NOTE | 2023-05-10 13:46 | WPDUROPN2 ---
Progress Note: A&P Assessment and Plan (1) Hydronephrosis: Qualifiers: Hydronephrosis type: unspecified Qualified Code(s): N13.30 - Unspecified hydronephrosis Code(s): N13.30 - Unspecified hydronephrosis Status: Chronic Assessment and Plan: Patient has a chronic indwelling stent that is being exchanged by Dr. Shaikh. She can follow up with him as an outpatient. Subjective Subjective Date/Time Seen: 05/10/23 13:46 Principal diagnosis: Chronic left hydronephrosis Interval history: Patient is feeling much better today and most likely will be discharged the next day or 2. Review of Systems Review of Systems: All systems reviewed & are unremarkable except as noted in HPI and below Exam Const: General: cooperative and comfortable Resp: Effort & Inspection: normal respiratory effort Cardio: Rate: regular rate Rhythm: regular rhythm Objective Data Vital Signs Vital Signs: Vital Signs - 24 hr 05/09/23 14:00 05/09/23 20:55 05/09/23 20:00 Temperature 36.6 C 36.3 C L Pulse Rate 100 120 H Respiratory Rate 20 16 Blood Pressure 129/49 L 142/95 H Pulse Oximetry 100 95 95 Oxygen Delivery Room Air 05/10/23 04:30 05/10/23 09:53 Temperature 36.3 C L Pulse Rate 106 H 100 Respiratory Rate 16 Blood Pressure 136/81 Pulse Oximetry 97 Oxygen Delivery Intake/Output Intake/Output: Intake & Output 05/07/23 05/08/23 05/09/23 05/10/23 23:59 23:59 23:59 23:59 Intake Total 2650 608 Balance 2650 608 Meds/Results Medications: Active Medications Generic Name Dose Route Start Last Admin Trade Name Freq PRN Reason Stop Dose Admin Acetaminophen 650 mg 05/10/23 12:21 Acetaminophen 325 Mg Tablet PO Q4H PRN Pain or Fever Apixaban 2.5 mg 05/09/23 09:30 05/10/23 09:53 Apixaban 2.5 Mg Tablet PO 2.5 mg Q12HR RUY Administration Bisacodyl 5 mg 05/11/23 05:00 Bisacodyl 5 Mg Tablet Ec PO QAM PRN Constipation Bupropion HCl 150 mg 05/09/23 09:00 05/10/23 09:52 Bupropion Hcl Sr (12 Hr) 150 Mg Tab PO 150 mg Q12HR RUY Administration Ferrous Sulfate 325 mg 05/09/23 09:00 05/10/23 09:52 Ferrous Sulfate [address] PO 325 mg DAILY [facility] Administration Ceftriaxone Sodium 1 gm in 50 mls @ 100 mls/hr 05/10/23 03:00 05/10/23 02:42 Rocephin 1 Gm/Ns 50 Ml IVPB Infused Q24H RUY Infusion Metronidazole 500 mg in 100 mls @ 100 mls/hr 05/09/23 11:00 05/10/23 13:39 Flagyl 500 Mg/Iso Soln 100 Ml IVPB 100 mls/hr Q8H [facility] Administration Levothyroxine Sodium 50 mcg 05/09/23 08:10 05/10/23 05:20 Levothyroxine Sodium 50 Mcg Tablet PO 50 mcg DAILY@0630 [facility] Administration Morphine Sulfate 2 mg 05/10/23 03:49 05/10/23 04:07 Morphine Sulfate (*Crx) 2 Mg/Ml Inj IV PUSH 2 mg Q2H PRN Administration Pain Rated 7-10 Ondansetron HCl 4 mg 05/09/23 03:21 Ondansetron Inj 4 Mg/2 Ml Vial IV PUSH Q4H PRN Nausea Polyethylene Glycol 17 gm 05/10/23 12:20 05/10/23 13:39 Polyethylene Glycol 3350 17 Gm Powd.Pack PO Not Given QAM [facility] Pravastatin Sodium 80 mg 05/09/23 21:00 05/09/23 21:33 Pravastatin Sodium 20 Mg Tablet PO 80 mg HS RUY Administration Sotalol HCl 80 mg 05/09/23 09:00 05/10/23 09:53 Sotalol Hcl 80 Mg Tablet PO 80 mg Q12HR [facility] Administration Tramadol HCl 50 mg 05/09/23 08:10 05/10/23 00:09 Tramadol Hcl (*Crx) 50 Mg Tablet PO 50 mg Q6H PRN Administration pain 4-6 Vitamin D 2,000 units 05/09/23 09:00 05/10/23 09:52 Cholecalciferol 1,000 Units Tablet PO 2,000 units DAILY RUY Administration Radiology Results: ITS Impressions Abdomen/Pelvis CT 05/09/23 05:49 Impression: Acute sigmoid diverticulitis. No abscess or free air. Large staghorn calculus of the right kidney. Moderate to severe left hydronephrosis with left ureteral stent in place. Small nonobstructing left lower pole renal stones.
--- NOTE | 2023-05-10 16:38 | PC.NURSE ---
I have reviewed Shoshana Lemus LPN's chart and agree with her assessment and findings.
[2023-05-10] MEDS: polyethylene glycoL 3350 17 GM POWD.PACK PO (18:18)
[2023-05-10] MEDS: PRAVASTATIN SODIUM 20 MG TABLET 80 MG PO (21:46)
[2023-05-11] MEDS: metroNIDAZOLE 500 MG/ISO 100ML 500 MG/100 ML BAG 100 MG IVPB ×3 (02:49→18:00)
[2023-05-11 04:50] VITALS: BP 148/88; PULSE 83; RESP 16; TEMP 36.3; O2SAT 99
[2023-05-11] MEDS: ONDANSETRON INJ 4 MG/2 ML VIAL IV PUSH (05:16)
[2023-05-11] MEDS: LEVOTHYROXINE SODIUM 50 MCG TABLET PO (05:16)
[2023-05-11] MEDS: BISACODYL 10 MG SUPPOSITORY RECTAL (05:17)
[2023-05-11 08:29] VITALS: PULSE 66
[2023-05-11] MEDS: SOTALOL HCL 80 MG TABLET PO ×2 (08:29→20:11)
[2023-05-11] MEDS: buPROPion HCL SR (12 HR) 150 MG TAB PO ×2 (08:29→20:11)
[2023-05-11] MEDS: CHOLECALCIFEROL 1,000 UNITS TABLET 2000 UNITS PO (08:29)
[2023-05-11] MEDS: APIXABAN 2.5 MG TABLET PO ×2 (08:29→20:10)
[2023-05-11] MEDS: FERROUS SULFATE 325 MG TABLET DR PO (08:29)
[2023-05-11] MEDS: polyethylene glycoL 3350 17 GM POWD.PACK PO (08:30)
[2023-05-11 08:50] LABS: Basophils Percent Auto 0.4 % (0.2-1.2); Eosinophils Absolute Auto 0.3 K/mm3 (0-0.3); Eosinophils Percent Auto 5.3 % (0-4.4); Hematocrit 38.8 % (37.0-47.0); Hemoglobin 12.3 g/dL (12.0-15.0); Immature Granulocyte Absolute 0.01 K/mm3 (0.00-0.031); Immature Granulocyte Percent A 0.2 % (0-0.5); Immature Platelet Fraction Pct 2.6 % (0.9-11.2); Lymphocytes Absolute Auto 0.94 K/mm3 (0.9-3.2); Lymphocytes Percent Auto 16.6 % (18.3-44.2); Mean Corpuscular HGB Conc 31.7 g/dl (32-36); Mean Corpuscular Hemoglobin 30.2 pg (26-34); Mean Corpuscular Volume 95.3 fl (80-100); Mean Platelet Volume 9.8 fl (7.4-10.4); Monocytes Absolute Auto 0.5 K/mm3 (0.1-0.6); Neutrophils Absolute Auto 3.9 K/mm3 (1.3-6.7); Neutrophils Percent Auto 68.5 % (45.5-73.1); Platelet Count Result 132 k/mm3 (150-375); Red Blood Count 4.07 M/mm3 (4.2-5.4); White Blood Count 5.7 K/mm3 (4.5-10.0)
[2023-05-11 08:58] LABS: Alanine Aminotransferase 6 U/L (6-35); Albumin Level 3.3 g/dL (3.5-5.1); Alkaline Phosphatase 68 U/L (38-126); Anion Gap 7 mmol/L (8-16); Aspartate Amino Transferase 17 U/L (14-36); Bilirubin,Total 0.4 mg/dL (0.2-1.3); Blood Urea Nitrogen 26 mg/dL (7-17); Carbon Dioxide 25 mmol/L (22-30); Chloride 104 mmol/L (98-107); Estimated CRCL calculation 17 ml/min; Estimated Glomerular Filt Rate 25; Glucose 83 mg/dL (65-110); Potassium 4.2 mmol/L (3.4-5.0); Sodium 136 mmol/L (137-145)
[2023-05-11] MEDS: METOCLOPRAMIDE HCL 10 MG TABLET PO (11:47)
[2023-05-11] MEDS: MAGNESIUM CITRATE 300 ML BTL PO (11:51)
--- NOTE | 2023-05-11 11:56 | PM.IMPN ---
Progress Note: A&P Assessment and Plan (1) Diverticulitis: Code(s): K57.92 - Diverticulitis of intestine, part unspecified, without perforation or abscess without bleeding Status: Acute Assessment and Plan: Will continue treatment with antibiotics and pain control. Currently on Rocephin Flagyl. 05/11: Will discharge on Augmentin renally adjusted once patient has bowel movement (2) Constipation: Code(s): K59.00 - Constipation, unspecified Status: Acute Assessment and Plan: 05/11: Patient has not had a bowel movement in 6 days and she does not feel comfortable with discharge until she passes a BM. She had oral Dulcolax on 05/10, oral MiraLax on 05/10 and 05/11 and Dulcolax suppository on 05/11 without bowel movement. Ordered magnesium citrate. (3) Paroxysmal atrial fibrillation: Code(s): I48.0 - Paroxysmal atrial fibrillation Status: Acute Assessment and Plan: Heart rate in the 90s to low 100s without chest pain or shortness of breath. Patient is on Eliquis that has been on hold because she was supposed undergo biopsy wound on left isaacs. Eliquis dose given today. 05/10: HR down to 61 this afternoon. (4) Hydronephrosis: Qualifiers: Hydronephrosis type: unspecified Qualified Code(s): N13.30 - Unspecified hydronephrosis Code(s): N13.30 - Unspecified hydronephrosis Status: Chronic Assessment and Plan: Urology consulted and appreciate their evaluation. No intervention recommended at this time. UA findings may be related to indwelling stent and or kidney stone colonization. (5) Staghorn renal calculus: Code(s): N20.0 - Calculus of kidney Status: Chronic Assessment and Plan: Chronic right staghorn kidney stone no intervention recommended per Urology (6) Retained ureteral stent: Code(s): Z96.0 - Presence of urogenital implants Status: Chronic Assessment and Plan: No intervention recommended per Urology (7) Acute UTI: Code(s): N39.0 - Urinary tract infection, site not specified Status: Ruled-out Assessment and Plan: Bladder tenderness with urinalysis consistent with urinary tract infection. Moderate to severe left renal hydronephrosis with retained left ureteral stent in place last replaced on 03/24/2023. Urology consulted due to UA consistent with urinary tract infection, left severe hydronephrosis, and concern for stent obstruction. Appreciate recommendations. 05/10: Urology suspects colonization rather than acute UTI. Culture pending. 05/11: Urine culture showed mixed [place] Plan Patient not comfortable with discharge due to constipation no BM in 6 days Time Spent With Patient Time with patient: 25 - 35 minutes Subjective Date/time seen: 05/11/23 11:56 Interval history: 05/09: Abdominal pain with diverticulitis left sided severe hydronephrosis despite stent and right staghorn kidney stone and possible UTI This is an 87-year-old female patient with a past history atrial fibrillation on Eliquis retention diastolic congestive CKD hyperlipidemia kidney stones PE degenerative disc disease and cerebral aneurysm status post coiling who is admitted to the hospital after seeking care for lower abdominal pain radiating around to the bilaterally.? Patient has a history of recurrent urinary tract infections and has a left indwelling ureteral stent that is chronic and last changed 03/24/2023.? Workup in the emergency department shows findings of urinary tract infection with moderate to severe left hydronephrosis, staghorn kidney stone in the right kidney without hydronephrosis, and findings of diverticulitis without perforation.? Patient started on Rocephin and Flagyl by the emergency department.? Patient reports surgical history pacemaker implanted, right knee replacement, hysterectomy coiling of one cerebral aneurysm and no treatment for another that is present.? She also reports a sore on the anterior
[2023-05-11 14:13] VITALS: BP 124/71; PULSE 87; RESP 16; TEMP 36.6; O2SAT 95
[2023-05-11] MEDS: PRAVASTATIN SODIUM 20 MG TABLET 80 MG PO (20:10)
[2023-05-11 21:52] VITALS: BP 134/72; PULSE 88; RESP 14; TEMP 36.1; O2SAT 95
[2023-05-11] MEDS: MORPHINE SULFATE (*CRX) 2 MG/ML INJ IV PUSH (22:47)
[2023-05-12] MEDS: metroNIDAZOLE 500 MG/ISO 100ML 500 MG/100 ML BAG 100 MG IVPB (02:44)
[2023-05-12 06:00] VITALS: BP 135/57; PULSE 80; RESP 13; TEMP 36.3; O2SAT 100
[2023-05-12] MEDS: LEVOTHYROXINE SODIUM 50 MCG TABLET PO (06:08)
--- NOTE | 2023-05-12 08:43 | PM.DS ---
DS: Admitting Diagnosis Discharge Date 05/12/2023 Admitting Diagnosis acute UTI, diverticulitis, paroxysmal atrial fibrillation, hydronephrosis, staghorn renal calculus, retained ureteral stent DS: Discharge Diagnosis Discharge Diagnosis (1) Diverticulitis: Code(s): K57.92 - Diverticulitis of intestine, part unspecified, without perforation or abscess without bleeding Status: Acute (2) Constipation: Code(s): K59.00 - Constipation, unspecified Status: Acute (3) Paroxysmal atrial fibrillation: Code(s): I48.0 - Paroxysmal atrial fibrillation Status: Acute (4) Hydronephrosis: Qualifiers: Hydronephrosis type: unspecified Qualified Code(s): N13.30 - Unspecified hydronephrosis Code(s): N13.30 - Unspecified hydronephrosis Status: Chronic (5) Staghorn renal calculus: Code(s): N20.0 - Calculus of kidney Status: Chronic (6) Retained ureteral stent: Code(s): Z96.0 - Presence of urogenital implants Status: Chronic (7) Acute UTI: Code(s): N39.0 - Urinary tract infection, site not specified Status: Ruled-out DS: Summary Hospital Course Reason for hospitalization: diverticulitis, suspected urinary tract infection with hydronephrosis and indwelling ureteral stent Hospital Course: 05/09: Abdominal pain with diverticulitis left sided severe hydronephrosis despite stent and right staghorn kidney stone and possible UTI This is an 87-year-old female patient with a past history atrial fibrillation on Eliquis retention diastolic congestive CKD hyperlipidemia kidney stones PE degenerative disc disease and cerebral aneurysm status post coiling who is admitted to the hospital after seeking care for lower abdominal pain radiating around to the bilaterally.? Patient has a history of recurrent urinary tract infections and has a left indwelling ureteral stent that is chronic and last changed 03/24/2023.? Workup in the emergency department shows findings of urinary tract infection with moderate to severe left hydronephrosis, staghorn kidney stone in the right kidney without hydronephrosis, and findings of diverticulitis without perforation.? Patient started on Rocephin and Flagyl by the emergency department.? Patient reports surgical history pacemaker implanted, right knee replacement, hysterectomy coiling of one cerebral aneurysm and no treatment for another that is present.? She also reports a sore on the anterior left leg that was due to be biopsied so she has been off Eliquis recently.? Patient denies any chest pain difficulty breathing nausea vomiting constipation diarrhea bowel or bladder dysfunction.? On exam she has tenderness the bladder left lower quadrant abdomen and left CVA tenderness.? On auscultation she sounds to be in atrial fibrillation heart rate in the 90s. 05/10: Patient reports she had another wave of lower abdominal pain with radiation to the back last night.? Today she feels better but she got dizzy when standing up to go use the restroom.? She is eating and drinking well but complains of constipation for 5-6 days.? We will give PRNs and keep admitted overnight.? We will plan to discharge tomorrow.? Patient ok to stay observation status. 05/11:? Was planning to discharge patient today but she reports that she has not been able to have a bowel movement for 6 days despite having oral Dulcolax MiraLax for 2 days in a row and Dulcolax suppository.? She also reports sensation of feeling full after 1 bite of food.? Bowel sounds present throughout all quadrants.? Prior CT scan shows diverticulitis without evidence of obstruction or perforation.? Discussed with patient and we will give dose metoclopramide oral followed magnesium citrate.? If she still does not produce a bowel by tomorrow we will perform additional CT scan.? Abdomen is not significantly tender to palpation.? There is no distention.? Patient is occasionally nauseous but not vomiting. 05/12: Patient re
[2023-05-12] MEDS: CHOLECALCIFEROL 1,000 UNITS TABLET 2000 UNITS PO (09:19)
[2023-05-12] MEDS: buPROPion HCL SR (12 HR) 150 MG TAB PO (09:19)
[2023-05-12] MEDS: APIXABAN 2.5 MG TABLET PO (09:19)
[2023-05-12] MEDS: AMOXICILLIN/CLAVULANATE K 500-125 MG TAB 1 TABLET PO (09:19)
[2023-05-12] MEDS: FERROUS SULFATE 325 MG TABLET DR PO (09:19)
[2023-05-12] MEDS: SOTALOL HCL 80 MG TABLET PO (09:19)
== END 2023-05-12 11:40 | disposition home or self-care (01) ==
LOC: ANHED 05-09 03:29 → ANH3MEDSUR 05-09 05:40
PROVIDERS: Nurse Practitioner; Admitting Provider Internal Medicine; Emergency Provider Emergency Medicine; PCP Internal Medicine; Visit Provider Internal Medicine
DX: K57.32 Diverticulitis of large intestine without perforation or abscess without bleeding (principal); K59.00 Constipation, unspecified; N13.2 Hydronephrosis with renal and ureteral calculous obstruction; N39.0 Urinary tract infection, site not specified; Z96.0 Presence of urogenital implants; I67.1 Cerebral aneurysm, nonruptured; I13.0 Hypertensive heart and chronic kidney disease with heart failure and stage 1 through stage 4 chronic kidney disease, or unspecified chronic kidney disease; N18.9 Chronic kidney disease, unspecified; I50.30 Unspecified diastolic (congestive) heart failure; I48.0 Paroxysmal atrial fibrillation; D63.1 Anemia in chronic kidney disease; R94.31 Abnormal electrocardiogram [ECG] [EKG]; F32.A Depression, unspecified; E03.9 Hypothyroidism, unspecified; E78.5 Hyperlipidemia, unspecified; I34.0 Nonrheumatic mitral (valve) insufficiency; I35.0 Nonrheumatic aortic (valve) stenosis; Z86.711 Personal history of pulmonary embolism; Z87.891 Personal history of nicotine dependence; F10.90 Alcohol use, unspecified, uncomplicated; Z79.01 Long term (current) use of anticoagulants; Z79.899 Other long term (current) drug therapy; Z82.49 Family history of ischemic heart disease and other diseases of the circulatory system
CPT/HCPCS: 36415; 74176; 80053; 81001; 83690; 85025; 85055; 87086; 87088; 93005; 96361; 96365; 96366; 96367; 96375; 96376; 99285; A9270; G0378; J0696; J1836; J2270; J2405; J7030

== ENCOUNTER 2023-07-18 12:34 | Outpatient (CLI) | payer MEDICARE, SELFPAY ==
[2023-07-18 14:13] LABS: Prothrombin Time 13.9 Seconds (11.1-14.7)
[2023-07-18 14:14] LABS: Partial Thromboplastin Time 29.5 SECONDS (22.3-36.8)
[2023-07-18 14:16] LABS: Hematocrit 44.2 % (37.0-47.0); Hemoglobin 13.8 g/dL (12.0-15.0)
[2023-07-18 14:41] LABS: Anion Gap 7 mmol/L (8-16); Blood Urea Nitrogen 27 mg/dL (7-17); Calcium 9.4 mg/dL (8.4-10.2); Carbon Dioxide 25 mmol/L (22-30); Chloride 107 mmol/L (98-107); Estimated Glomerular Filt Rate 27; Glucose 65 mg/dL (65-110); Potassium 4.4 mmol/L (3.4-5.0); Sodium 139 mmol/L (137-145)
== END 2023-07-18 12:35 | disposition home or self-care (01) ==
LOC: ANHSURGERY 12:35
PROVIDERS: Anesthesiology; PCP Internal Medicine; Visit Provider Urology
DX: Z01.818 Encounter for other preprocedural examination (principal); D64.9 Anemia, unspecified; N18.9 Chronic kidney disease, unspecified
CPT/HCPCS: 36415; 80048; 85014; 85018; 85610; 85730

== ENCOUNTER 2023-07-21 00:42 | Day surgery (SDC) | payer MEDICARE, SELFPAY ==
[2023-07-08 13:17] VITALS: BMI 22.3
--- NOTE | 2023-07-08 13:56 | PC.NURSE ---
Report to the Outpatient Waiting Room, entrance under the green pavilion located off [facility], at time __12:00PM on date ___07/21/23____. Planned Procedure Time: _2:00PM . Time changes happen often and if your time is changed the preop area will call you the afternoon before. - You and your visitor will be asked to self-screen and do not enter if you have any COVID symptoms. - A mask is optional within the hospital at this time. Patients may have clear liquids (water, carbonated beverages, clear teas, apple juice) until 3 hours prior to surgery with a maximum of 20 ounces. - No food from midnight until time of surgery. Take the following medications with a SIP of water the morning of surgery: ___BUPROPION, LEVOTHYROXINE, SOTALOL. TRAMADOL NEEDED FOR PAIN. DO NOT STOP ANY OF YOUR OTHER PRESCRIPTION MEDICATIONS PRIOR TO SURGERY ?EXCEPT THE FOLLOWING Medications to discontinue per physician ___HOLD ELIQUIS PER DR SCHRADER. HOLD ALL VITAMINS/SUPPLEMENTS 3 DAYS PRE-OP PER ANESTHESIA- LAST DOSE 07/17/23. Please no make-up, nail arabic, hairspray, perfume, deodorant, or body powder the day of surgery. No jewelry (including any body piercings) or valuables the day of surgery, leave them at home. Please take a shower or bath the night before, or the morning of, surgery with an antibacterial soap. Wear comfortable, loose fitting clothing. - Jewelry must be removed prior to entering the operating room. Rings and piercings that are not removed may be cut off. - The hospital will not accept responsibility for valuables. - Please leave all valuables, including medications, at home the day of surgery. If you are going home after surgery, a licensed clamp truck driver must drive you home. - NO public transportation without another adult if you receive anesthesia. - We recommend that an adult stay with you for 24 hours following discharge. - We also recommend that you do not drive, make important decision, drink alcoholic beverages, or take any drugs that were not prescribed by your health care provider for at least 24 hours after your discharge time. Follow any additional instructions given to you from your surgeon. If you or anyone in your household have experienced Covid symptoms in the past week, please notify your surgeon or the nurse liaison at the phone number below for possible testing. Telephone instructions given to ___PATIENT and asked if any additional questions and then verbalized understanding. Patient advised to call surgeon office or pre surgery nurse liaison [phone] if any additional questions.
--- NOTE | 2023-07-19 14:05 | PM.HPGS ---
History of Present Illness History of Present Illness Consent: Risks, benefits, and alternatives have been discussed and questions answered. Patient agrees to proceed with procedure. Chief complaint: left UPJ obstruction Narrative: Nelia Peterson is a 87 year old female with a known chronic UPJ obstruction that is managed with a indwelling left ureteral stent.? She presents today for cystoscopy with ureteral stent exchange.? She is aware the risk including, not limited to, hematuria an adverse cardiopulmonary event. ? Her stent was last changed in 03/28 at which time there was minimal incrustation. Because of prior problems with encrustation we have decided to leave stent change interval at 4 months. Review of Systems Cardiovascular: Cardiovascular: Denies chest pain, Denies lightheadedness, Denies palpitations and Denies dyspnea Respiratory: Respiratory: Denies dyspnea Gastrointestinal: Gastrointestinal: Denies diarrhea, Denies nausea and Denies vomiting Genitourinary: Genitourinary: Denies hematuria and Denies dysuria Endocrine: Endocrine: Denies palpitations PMFSH Past Medical History Medical History Cerebral aneurysm Status post coil embolization. Chronic anemia Chronic kidney disease Current use of assistant terminal manager anticoagulation Degenerative disc disease Depression Diastolic congestive heart failure Dyslipidemia Endometriosis Heart failure with preserved ejection fraction EF was 60 to 65% in 07/2021. Hemorrhoids Histoplasmosis Hyperlipidemia Hypertension Hypothyroidism Intraoperative ureteral injury (07/2021) Kidney stones Including known right staghorn calculus. Mild aortic stenosis Mild pulmonary hypertension Mitral regurgitation mod to severe Moderate mitral regurgitation Nonspecific colitis Paroxysmal atrial fibrillation Pulmonary embolism Surgical History Surgical History History of arthroplasty of right knee History of cataract extraction History of colonoscopy with polypectomy History of cystoscopy History of lumbar surgery History of tonsillectomy and adenoidectomy History of total hysterectomy with bilateral salpingo-oophorectomy (BSO) Status post coil embolization of cerebral aneurysm Family History Family History Mother , in her 70s Hypertension Father Hypertension Acute myocardial infarction Social History Social History Social History: Surrogate decision maker: Seth Peterson, grandson. Code status: Full code. Smoking packs per day: 0.5 Smoking cigarettes per day: 10.0 Years smoked: 15 Smoking pack-years: 7.50 Smoking status: Former smoker Tobacco type: cigarettes Second hand tobacco smoke exposure: No Smoking end date: 06/06/79 Alcohol intake: current Drinks per week: 1 Alcohol use details: 6 oz of wine. Substance use: never Substance use type: does not use Lack of Transportation: No Lack of Food: Never True Current Housing: I Have Housing Concerned About Future Housing: No Difficulty Paying Gas/Electric Bills: No Difficulty Paying for Meds: No Currently Unemployed: No Education: Master's Degree or Higher Difficulty w/ Childcare or Family Care: No Living arrangements: alone Additional living arrangements comments: as of September 2020. She and her had 3 children, all whom are . Additional occupation/education comments: Retired. Spiritual care concerns: No Meds Home Medications and Allergies Home Medications Medication Instructions Recorded Confirmed Type bupropion HCl 150 mg tablet,12 hr 150 mg PO BID 11/19/19 07/08/23 History sustained-release cholecalciferol (vitamin D3) 50 50 mcg PO DAILY 11/19/19 07/08/23 History mcg (2,000 unit)
--- NOTE | 2023-07-20 09:52 | WPDANESEPPF ---
Anes - Initial Pre Proc Eval Procedure: Operation Date: 07/21/23 14:00 Proposed Procedures p Cystoscopy, Left Stent Exchange, Left Retrograde Pyelogram - Nabil Shaikh MD Date/Time: 07/20/23 09:52 Surgeon: Nabil Shaikh MD Pre Op Diagnosis: left UPJ obstruction Patient Data Age: 87 Gender: F Height: 1.63 m Weight: 59 kg Allergies Allergy/AdvReac Type Severity Reaction Status Date / Time enoxaparin Allergy Unknown Other Verified 07/21/23 10:19 heparin Allergy Other Verified 07/21/23 10:19 codeine AdvReac Mild Nausea Verified 07/21/23 10:19 hydrocodone AdvReac Mild Nausea Verified 07/21/23 10:19 Home Medications Medication Instructions Recorded Confirmed Type bupropion HCl 150 mg tablet,12 hr 150 mg PO BID 11/19/19 07/21/23 History sustained-release cholecalciferol (vitamin D3) 50 50 mcg PO DAILY 11/19/19 07/21/23 History mcg (2,000 unit) capsule (Vitamin D3) levothyroxine 50 mcg tablet 50 mcg PO QAM 11/19/19 07/21/23 History pravastatin 80 mg tablet 80 mg PO HS 11/19/19 07/21/23 History tramadol 50 mg tablet 50 mg PO Q6H PRN pain #20 tabs 07/30/22 07/08/23 Rx sotalol 80 mg tablet 80 mg PO Q12HR #60 tabs 09/24/22 07/21/23 Rx apixaban 2.5 mg tablet (Eliquis) 2.5 mg PO BID 11/19/22 07/21/23 History ferrous sulfate 325 mg (65 mg 325 mg PO DAILY 05/09/23 07/21/23 History iron) tablet bisacodyl 5 mg tablet,delayed 5 mg PO QAM PRN Constipation #30 05/12/23 07/21/23 Rx release (Laxative (bisacodyl)) tabs Patient hx anesthesia problems: none Family hx anesthesia problems: none Results Review: All pre-operative results and documents have been reviewed as part of the pre-operative evaluation. [facility] Past Medical History Medical History (Updated 07/20/23 @ 09:53 by Jozef Gillis DO) Jered-tachy syndrome Cerebral aneurysm Status post coil embolization. 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 Hemorrhoids Histoplasmosis Hyperlipidemia Hypertension Hypothyroidism Intraoperative ureteral injury (07/2021) Kidney stones Including known right staghorn calculus. Mild aortic stenosis Mild pulmonary hypertension Mitral regurgitation mod to severe Moderate mitral regurgitation Nonspecific colitis Pacemaker Paroxysmal atrial fibrillation Pulmonary embolism Surgical History Surgical History History of arthroplasty of right knee History of cataract extraction History of colonoscopy with polypectomy History of cystoscopy History of lumbar surgery History of tonsillectomy and adenoidectomy History of total hysterectomy with bilateral salpingo-oophorectomy (BSO) Status post coil embolization of cerebral aneurysm Family History Family History Mother , in her 70s Hypertension Father Hypertension Acute myocardial infarction Social History Social History Social History: Surrogate decision maker: susanna Rothman. Code status: Full code. Smoking packs per day: 0.5 Smoking cigarettes per day: 10.0 Years smoked: 15 Smoking pack-years: 7.50 Smoking status: Former smoker Tobacco type: cigarettes Second hand tobacco smoke exposure: No Smoking end date: 06/06/79 Alcohol intake: current Drinks per week: 1 Alcohol use details: 6 oz of wine. Substance use: never Substance use type: does not use Lack of Transportation: No Lack of Food: Never True Current Housing: I Have Housing Concerned About Future Housing: No Difficulty Paying Gas/Electric Bills: No Difficulty Paying for Meds: No Currently Unemployed: No Ed
--- NOTE | ~2023-07-21 | XR_ITS ---
EXAMINATION: XR retrograde pyelo w/stent LT DATE: 07/21/2023 11:11 INDICATION: Left hydronephrosis. TECHNIQUE: 5 intraoperative fluoroscopic views of the abdomen and pelvis were obtained. I was not pre sent. Fluoroscopy exposure time was 69 seconds. COMPARISON: CT abdomen and pelvis 05/09/2023 FINDINGS: There is a staghorn calculus in right kidney. The left-sided retrograde pyelograms demonstr ate severe left hydronephrosis. The final images demonstrate a left internal ureteral stent in expect ed position. IMPRESSION: 1. Severe left hydronephrosis. Left internal ureteral stent in expected position. 2. Staghorn calculus in right kidney. Reviewed, dictated and finalized at location A. NOLOGY SPECIALIST IMPRESSION: 1. Severe left hydronephrosis. Left internal ureteral stent in expected positio n. 2. Staghorn calculus in right kidney.
--- NOTE | 2023-07-21 06:14 | WPDHPUPDATE1 ---
History and Physical Update Update Date/Time: 07/21/23 06:14 History and Physical has been reviewed, including an updated exam of the patient. There are NO changes in the patient's condition. Risks, benefits, and alternatives have been discussed and questions answered. Patient agrees to proceed with procedure.
[2023-07-21 10:13] VITALS: BP 137/92; PULSE 60; RESP 20; TEMP 36; O2SAT 100
[2023-07-21] MEDS: LACTATED RINGERS 1,000 ML 30 ML IV CONT (10:35)
[2023-07-21] MEDS: ceFAZolin 2 GM/D5W 50 ML 2 GM/50 ML BAG IVPB (10:49)
[2023-07-21] MEDS: LIDOCAINE HCL 2% GEL UROJET 10 ML PKG MUCOUS MEM (11:04)
--- NOTE | 2023-07-21 11:12 | P.OP_ITS ---
Procedure Note - Detailed Date of Procedure 07/21/23 Pre-op Diagnosis Left UPJ obstruction Post-op Diagnosis Same Procedure Performed Cystoscopy, left retrograde pyelography, left ureteral stent exchange Surgeon Nabil Shaikh MD Anesthesia General Description of Procedure Patient is brought to the operative suite where? she has prepped draped in routine sterile fashion while in dorsal lithotomy position.? 2% xylocaine jelly was introduced intraurethrally and systemic sedation is administered per the an esthesia department.? Using a 16 F flexible cystoscope the tip of the indwelling stent is grasped and brought to the external urethral meatus.? A 0.035 in glidewire was advanced into the renal pelvis.? Angiographic catheter was used to obtain a retrograde pyelogram.? A new 4.8 F variable length stent is positioned with the proximal coil in renal pelvis and distal coil in the bladder.? Scopes and wires removed she tolerated the procedure well.? The stent was placed 4 months ago and showed mild early incrustation.? I think we will keep our stent exchange interval at 4 months Estimated Blood Loss 0
[2023-07-21 11:15] VITALS: BP 114/57; PULSE 59; RESP 12; O2SAT 100
[2023-07-21 11:45] VITALS: BP 145/66; PULSE 60; RESP 16
[2023-07-21 12:14] VITALS: BP 152/64; PULSE 60; RESP 16
== END 2023-07-21 12:17 | disposition home or self-care (01) ==
PROVIDERS: PCP Internal Medicine; Visit Provider Urology
PROC: (CPT 52352; principal; 2023-07-21 14:00)
DX: N13.30 Unspecified hydronephrosis (principal); I12.9 Hypertensive chronic kidney disease with stage 1 through stage 4 chronic kidney disease, or unspecified chronic kidney disease; N18.9 Chronic kidney disease, unspecified; E03.9 Hypothyroidism, unspecified; D64.9 Anemia, unspecified; F32.A Depression, unspecified; E78.5 Hyperlipidemia, unspecified; N80.9 Endometriosis, unspecified; I49.5 Sick sinus syndrome; Z98.890 Other specified postprocedural states; Z95.828 Presence of other vascular implants and grafts; Z95.0 Presence of cardiac pacemaker; Z87.891 Personal history of nicotine dependence; Z86.79 Personal history of other diseases of the circulatory system; Z82.49 Family history of ischemic heart disease and other diseases of the circulatory system; Z79.891 Long term (current) use of opiate analgesic; Z79.01 Long term (current) use of anticoagulants
CPT/HCPCS: 52332; 36415; 74420; 80048; 85014; 85018; 85610; 85730; C1758; C1769; C2617; J0690; J2405; J2704; J3010; J7120; Q9966

== ENCOUNTER 2023-09-21 10:31 | Outpatient (CLI) | payer MEDICARE, SELFPAY ==
[2023-09-21 11:03] LABS: Basophils Absolute Auto 0.1 K/mm3 (0.0-0.1); Basophils Percent Auto 0.9 % (0.2-1.2); Eosinophils Absolute Auto 0.3 K/mm3 (0-0.3); Eosinophils Percent Auto 5.3 % (0-4.4); Hematocrit 41.1 % (37.0-47.0); Immature Granulocyte Absolute 0.01 K/mm3 (0.00-0.031); Immature Granulocyte Percent A 0.2 % (0-0.5); Immature Platelet Fraction Pct 3.3 % (0.9-11.2); Lymphocytes Absolute Auto 1.37 K/mm3 (0.9-3.2); Lymphocytes Percent Auto 25.8 % (18.3-44.2); Mean Corpuscular HGB Conc 31.6 g/dl (32-36); Mean Corpuscular Hemoglobin 30.7 pg (26-34); Mean Corpuscular Volume 96.9 fl (80-100); Mean Platelet Volume 10.8 fl (7.4-10.4); Monocytes Absolute Auto 0.5 K/mm3 (0.1-0.6); Monocytes Percent Auto 8.9 % (2.6-8.5); Neutrophils Absolute Auto 3.1 K/mm3 (1.3-6.7); Neutrophils Percent Auto 58.9 % (45.5-73.1); Platelet Count Result 124 k/mm3 (150-375); Red Blood Count 4.24 M/mm3 (4.2-5.4); Red Cell Distribution Width 13.8 % (11.5-14.5); White Blood Count 5.3 K/mm3 (4.5-10.0)
[2023-09-21 16:46] LABS: Immunoglobulin A 54 mg/dL (70-400); Immunoglobulin G 487 mg/dL (700-1600); Immunoglobulin M 338 mg/dL (40-230)
[2023-09-21 17:07] LABS: Alanine Aminotransferase 12 U/L (6-35); Albumin Level 4.1 g/dL (3.5-5.1); Alkaline Phosphatase 83 U/L (38-126); Anion Gap 8 mmol/L (4-12); Aspartate Amino Transferase 23 U/L (14-36); Bilirubin,Total 0.6 mg/dL (0.2-1.3); Blood Urea Nitrogen 32 mg/dL (7-17); Calcium 9.6 mg/dL (8.4-10.2); Carbon Dioxide 24 mmol/L (22-30); Chloride 107 mmol/L (98-107); Estimated Glomerular Filt Rate 24; Glucose 61 mg/dL (65-110); Potassium 4.4 mmol/L (3.4-5.0); Sodium 139 mmol/L (137-145)
[2023-09-23 13:18] LABS: Kappa\\Lambda Light Chains 2.06 (0.26-1.65); Lambda Light Chain 12.3 mg/L (5.7-26.3)
[2023-09-26 13:28] LABS: Abnormal Protein Band 1 0.2 g/dL (NONE DETECTED); Albumin 3.6 g/dL (3.8-4.8); Alpha 1 Globulin 0.4 g/dL (0.2-0.3); Alpha 2 Globulin 0.9 g/dL (0.5-0.9); Beta 1 Globulin 0.4 g/dL (0.4-0.6); Gamma Globulin 0.6 g/dL (0.8-1.7)
== END 2023-09-21 10:32 | disposition home or self-care (01) ==
LOC: ANHLAB 10:33
PROVIDERS: PCP Internal Medicine; Visit Provider Internal Medicine Hematology & Oncology
DX: C90.00 Multiple myeloma not having achieved remission (principal)
CPT/HCPCS: 36415; 80053; 82784; 83883; 84155; 84165; 85025; 85055

== ENCOUNTER 2023-10-13 12:35 | Outpatient (CLI) | payer MEDICARE, SELFPAY ==
--- NOTE | ~2023-10-13 | XR_ITS ---
EXAMINATION: XR bone survey comp/metastic DATE: 10/13/2023 13:32 INDICATION: Multiple myeloma of unspecified remission status TECHNIQUE: A skeletal survey was performed including AP views of the chest, abdomen and pelvis; AP an d lateral/lateral swimmers views of the cervical, thoracic and lumbar spine; lateral view of the skul l, and AP and lateral views of the appendicular skeleton excluding the hands and feet. COMPARISON: CT dated 05/09/2023 FINDINGS: No suspicious lytic or blastic bone lesions. Left total knee arthroplasty. Scattered degenerative ske letal changes including severe cervical, moderate thoracic and severe lumbar spondylosis with mild scott mbar dextrocurvature. 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 Metallic embolization coil projecting over the region of the right side of the suprasellar cistern. H yperexpansion of lungs with mild bibasilar atelectasis. Multiple scattered calcified pulmonary nodule s along with calcified mediastinal and bilateral hilar lymph nodes consistent with old granulomatous disease. Heart size is normal. Intracardiac pacemaker. Bilateral nephrolithiasis with a few stones at the left kidney the largest measuring 1.8 cm and with large staghorn calculus essentially filling th e renal pelvis and calyces of the right kidney. Left internal ureteral stent in expected position wit h loops formed in the expected location of the bladder and left renal pelvis. IMPRESSION: 1. Scattered, in places severe, degenerative skeletal changes. No suspicious lytic or blastic bone le sions. 2. Bilateral nephrolithiasis including large right-sided staghorn calculus essentially filling the ri ght renal pelvis and calyces. Left internal ureteral stent in expected position Reviewed, dictated and finalized at location A. IMPRESSION: 1. Scattered, in places severe, degenerative skeletal changes. No suspicious ly tic or blastic bone lesions. 2. Bilateral nephrolithiasis including large right-sided staghorn calculus esse ntially filling the right renal pelvis and calyces. Left internal ureteral sten t in expected position
== END 2023-10-13 12:36 | disposition home or self-care (01) ==
LOC: ANHIMG 12:39
PROVIDERS: PCP Internal Medicine; Visit Provider Internal Medicine Hematology & Oncology
DX: C90.00 Multiple myeloma not having achieved remission (principal); N20.0 Calculus of kidney; M47.896 Other spondylosis, lumbar region; M47.894 Other spondylosis, thoracic region; M47.892 Other spondylosis, cervical region; Z96.0 Presence of urogenital implants
CPT/HCPCS: 77075

== ENCOUNTER 2023-11-08 08:49 | Outpatient (CLI) | payer MEDICARE, SELFPAY ==
[2023-11-08 09:53] LABS: Partial Thromboplastin Time 30.4 Seconds (22.3-36.8)
== END 2023-11-08 08:50 | disposition home or self-care (01) ==
PROVIDERS: Anesthesiology; PCP Internal Medicine; Visit Provider Urology
DX: Z01.818 Encounter for other preprocedural examination (principal); N18.4 Chronic kidney disease, stage 4 (severe)
CPT/HCPCS: 36415; 85610; 85730

== ENCOUNTER 2023-11-10 00:44 | Day surgery (SDC) | payer MEDICARE, SELFPAY ==
[2023-11-01 09:22] VITALS: BMI 23.8
--- NOTE | 2023-11-01 09:53 | PC.NURSE ---
Report to the Outpatient Waiting Room, entrance under the green pavilion located off [facility], at time _12:30PM on date __11/10/23 . Planned Procedure Time: __2:30PM . Time changes happen often and if your time is changed the preop area will call you the afternoon before. - You and your visitor will be asked to self-screen and do not enter if you have any COVID symptoms. - A mask is optional within the hospital at this time. Patients may have clear liquids (water, carbonated beverages, clear teas, apple juice) until 3 hours prior to surgery with a maximum of 20 ounces. - No food from midnight until time of surgery. Take the following medications with a SIP of water the morning of surgery: ____BUPROPION, LEVOTHYROXINE, SOTALOL. MAY TAKE TRAMADOL FOR PAIN NEEDED. DO NOT STOP ANY OF YOUR OTHER PRESCRIPTION MEDICATIONS PRIOR TO SURGERY ?EXCEPT THE FOLLOWING Medications to discontinue per physician ___HOLD ELIQUIS PER DR SCHRADER HOLD ALL VITAMINS/SUPPLEMENTS 3 DAYS PRE-OP PER ANESTHESIA- LAST DOSE 11/06/23 Please no make-up, nail cook islander, hairspray, perfume, deodorant, or body powder the day of surgery. No jewelry (including any body piercings) or valuables the day of surgery, leave them at home. Please take a shower or bath the night before, or the morning of, surgery with an antibacterial soap. Wear comfortable, loose fitting clothing. - Jewelry must be removed prior to entering the operating room. Rings and piercings that are not removed may be cut off. - The hospital will not accept responsibility for valuables. - Please leave all valuables, including medications, at home the day of surgery. If you are going home after surgery, a licensed trailer truck driver must drive you home. - NO public transportation without another adult if you receive anesthesia. - We recommend that an adult stay with you for 24 hours following discharge. - We also recommend that you do not drive, make important decision, drink alcoholic beverages, or take any drugs that were not prescribed by your health care provider for at least 24 hours after your discharge time. Follow any additional instructions given to you from your surgeon. If you or anyone in your household have experienced Covid symptoms in the past week, please notify your surgeon or the nurse liaison at the phone number below for possible testing. Telephone instructions given to ____PATIENT and asked if any additional questions and then verbalized understanding. Patient advised to call surgeon office or pre surgery nurse liaison [phone] if any additional questions.
--- NOTE | 2023-11-07 07:58 | PM.HPGS ---
History of Present Illness History of Present Illness Consent: Risks, benefits, and alternatives have been discussed and questions answered. Patient agrees to proceed with procedure. Chief complaint: left UPJ obstruction Narrative: Nelia Peterson is a 88 year old female with a known chronic UPJ obstruction that is managed with a indwelling left ureteral stent.? She presents today for cystoscopy with ureteral stent exchange.? She is aware the risk including, not limited to, hematuria an adverse cardiopulmonary event. ? Her stent was last changed in 03/28 at which time there was minimal incrustation. Because of prior problems with encrustation we have decided to leave stent change interval at 4 months. Review of Systems Cardiovascular: Cardiovascular: Denies chest pain, Denies lightheadedness, Denies palpitations and Denies dyspnea Respiratory: Respiratory: Denies dyspnea Gastrointestinal: Gastrointestinal: Denies diarrhea, Denies nausea and Denies vomiting Genitourinary: Genitourinary: Denies hematuria and Denies dysuria Endocrine: Endocrine: Denies palpitations [facility] Past Medical History Medical History Jered-tachy syndrome Cerebral aneurysm Status post coil embolization. Chronic anemia Chronic kidney disease 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 Degenerative disc disease Depression Diastolic congestive heart failure Dyslipidemia Endometriosis Heart failure with preserved ejection fraction EF was 60 to 65% in 07/2021. Hemorrhoids Histoplasmosis Hyperlipidemia Hypertension Hypothyroidism Intraoperative ureteral injury (07/2021) Kidney stones Including known right staghorn calculus. Mild aortic stenosis Mild pulmonary hypertension Mitral regurgitation mod to severe Moderate mitral regurgitation Nonspecific colitis Pacemaker Paroxysmal atrial fibrillation Pulmonary embolism Surgical History Surgical History History of arthroplasty of right knee History of cataract extraction History of colonoscopy with polypectomy History of cystoscopy History of lumbar surgery History of tonsillectomy and adenoidectomy History of total hysterectomy with bilateral salpingo-oophorectomy (BSO) Status post coil embolization of cerebral aneurysm Family History Family History Mother , in her 70s Hypertension Father Hypertension Acute myocardial infarction Social History Social History Social History: Surrogate decision maker: Seth Henderson, grandson. Code status: Full code. Smoking packs per day: 0.1 Smoking cigarettes per day: 2.0 Years smoked: 20 Smoking pack-years: 2.00 Smoking status: Former smoker Tobacco type: cigarettes Second hand tobacco smoke exposure: No Smoking end date: 06/06/1964 Alcohol intake: current Drinks per week: 1 Alcohol use details: 6 oz of wine. Substance use: never Substance use type: does not use Lack of Transportation: No Lack of Food: Never True Current Housing: I Have Housing Concerned About Future Housing: No Difficulty Paying Gas/Electric Bills: No Difficulty Paying for Meds: No Currently Unemployed: No Education: Master's Degree or Higher Difficulty w/ Childcare or Family Care: No Living arrangements: alone Additional living arrangements comments: as of September 2020. She and her had 3 children, all whom are . Additional occupation/education comments: Retired. Spiritual care concerns: No Meds Home Medications and Allergies Home Medications Medication Instructions Recorded Confirmed Type bupropion HCl 150 mg tablet,12 hr 150 mg PO BID 11/19/19 11/01/23 History sustained-release cholecalciferol (vitamin D3) 50 50 mcg PO DAILY 11/19/19 11/01/23 Histor
[2023-11-10] VITALS (8 sets, daily range): BP systolic 138–182; BP diastolic 60–90; PULSE 60–69; RESP 10–19; TEMP 36.3–36.4; O2SAT 100
--- NOTE | ~2023-11-10 | XR_ITS ---
EXAMINATION: XR fluoroscopy no charge DATE: 11/10/2023 12:12 INDICATION: Left ureteropelvic junction obstruction. Kidney stones. TECHNIQUE: 2 intraoperative fluoroscopic views of the abdomen were obtained. I was not present. Fluor oscopy exposure time was 6 seconds. COMPARISON: CT abdomen and pelvis 05/09/2023 FINDINGS: There are bilateral kidney stones including a staghorn calculus in right kidney. There is a left internal ureteral stent in expected position. IMPRESSION: 1. Left internal ureteral stent in expected position. 2. Bilateral kidney stones. Reviewed, dictated and finalized at location A.
--- NOTE | 2023-11-10 06:11 | WPDHPUPDATE1 ---
History and Physical Update Update Date/Time: 11/10/23 06:11 History and Physical has been reviewed, including an updated exam of the patient. There are NO changes in the patient's condition. Risks, benefits, and alternatives have been discussed and questions answered. Patient agrees to proceed with procedure.
--- NOTE | 2023-11-10 10:56 | WPDANESEPPF ---
Anes - Initial Pre Proc Eval Procedure: Operation Date: 11/10/23 12:30 Proposed Procedures p Cystoscopy, Left Retrograde Pyelography, Left Ureteral Stent Exchange - Nabil Shaikh MD Date/Time: 11/10/23 10:56 Surgeon: Nabil Shaikh MD Pre Op Diagnosis: left UPJ obstruction Patient Data Age: 88 Gender: F Height: 1.57 m Weight: 59 kg Allergies Allergy/AdvReac Type Severity Reaction Status Date / Time codeine AdvReac Mild Nausea Verified 11/01/23 09:15 Home Medications Medication Instructions Recorded Confirmed Type bupropion HCl 150 mg tablet,12 hr 150 mg PO BID 11/19/19 11/01/23 History sustained-release cholecalciferol (vitamin D3) 50 50 mcg PO DAILY 11/19/19 11/01/23 History mcg (2,000 unit) capsule (Vitamin D3) levothyroxine 50 mcg tablet 50 mcg PO QAM 11/19/19 11/01/23 History pravastatin 80 mg tablet 80 mg PO HS 11/19/19 11/01/23 History tramadol 50 mg tablet 50 mg PO Q6H PRN pain #20 tabs 07/30/22 11/01/23 Rx sotalol 80 mg tablet 80 mg PO Q12HR #60 tabs 09/24/22 11/01/23 Rx apixaban 2.5 mg tablet (Eliquis) 2.5 mg PO BID 11/19/22 11/01/23 History ferrous sulfate 325 mg (65 mg 325 mg PO DAILY 05/09/23 11/01/23 History iron) tablet bisacodyl 5 mg tablet,delayed 5 mg PO QAM PRN Constipation #30 05/12/23 11/01/23 Rx release (Laxative (bisacodyl)) tabs Patient hx anesthesia problems: none Family hx anesthesia problems: none Results Review: All pre-operative results and documents have been reviewed as part of the pre-operative evaluation. [facility] Past Medical History Medical History Jered-tachy syndrome Cerebral aneurysm Status post coil embolization. Chronic anemia Chronic kidney disease Current use of [facility] anticoagulation Degenerative disc disease Depression Diastolic congestive heart failure Dyslipidemia Endometriosis Heart failure with preserved ejection fraction EF was 60 to 65% in 07/2021. Hemorrhoids Histoplasmosis Hyperlipidemia Hypertension Hypothyroidism Intraoperative ureteral injury (07/2021) Kidney stones Including known right staghorn calculus. Mild aortic stenosis Mild pulmonary hypertension Mitral regurgitation mod to severe Moderate mitral regurgitation Nonspecific colitis Pacemaker Paroxysmal atrial fibrillation Pulmonary embolism Surgical History Surgical History History of arthroplasty of right knee History of cataract extraction History of colonoscopy with polypectomy History of cystoscopy History of lumbar surgery History of tonsillectomy and adenoidectomy History of total hysterectomy with bilateral salpingo-oophorectomy (BSO) Status post coil embolization of cerebral aneurysm Family History Family History Mother , in her 70s Hypertension Father Hypertension Acute myocardial infarction Social History Social History Social History: Surrogate decision maker: susanna Rothman. Code status: Full code. Smoking packs per day: 0.1 Smoking cigarettes per day: 2.0 Years smoked: 20 Smoking pack-years: 2.00 Smoking status: Former smoker Tobacco type: cigarettes Second hand tobacco smoke exposure: No Smoking end date: 06/06/1964 Alcohol intake: current Drinks per week: 1 Alcohol use details: 6 oz of wine. Substance use: never Substance use type: does not use Lack of Transportation: No Lack of Food: Never True Current Housing: I Have Housing Concerned About Future Housing: No Difficulty Paying Gas/Electric Bills: No Difficulty Paying for Meds: No Currently Unemployed: No Education: Master's Degree or Higher Difficulty w/ Childcare or Family Care: No Living arrangements: alone Additional living arrangements comments: as o
[2023-11-10] MEDS: LACTATED RINGERS 1,000 ML 30 ML IV CONT (11:14)
[2023-11-10] MEDS: ceFAZolin 2 GM/D5W 50 ML 2 GM/50 ML BAG IVPB (11:48)
--- NOTE | 2023-11-10 12:09 | W.PM.PROC2 ---
Procedure Note - Detailed Date of Procedure 11/10/23 Pre-op Diagnosis Left UPJ obstruction Post-op Diagnosis Same Procedure Performed Cystoscopy, attempted left ureteral stent exchange Surgeon Nabil Shaikh MD Anesthesia General Description of Procedure Patient is brought to the operative suite where she has prepped draped in routine sterile fashion while in dorsal lithotomy position after the uneventful induction of a general LMA anesthetic. Cystoscopy was undertaken with a 21 F rigid cystoscope. I can immediately see that the distal coil of her indwelling ureteral stent is markedly encrusted with stone formation. I grasp a piece of the stent and gently tried to extract it without any success. I did not push the issue and opted instead to come back another day with simultaneous lithotripsy and stent exchange. Also plan to laser the stones on the bladder coil of her stent. Drains Yes Packing No Pathology None sent Complications No immediate complications
[2023-11-10] MEDS: fentaNYL CITRATE INJ (*CRX) 100 MCG/2 ML VIAL 25 MCG IV PUSH (12:57)
== END 2023-11-10 13:51 | disposition home or self-care (01) ==
PROVIDERS: PCP Internal Medicine; Visit Provider Urology
PROC: (CPT 52352; principal; 2023-11-10 12:30)
DX: N13.30 Unspecified hydronephrosis (principal); E78.5 Hyperlipidemia, unspecified; E03.9 Hypothyroidism, unspecified; I13.0 Hypertensive heart and chronic kidney disease with heart failure and stage 1 through stage 4 chronic kidney disease, or unspecified chronic kidney disease; I50.30 Unspecified diastolic (congestive) heart failure; N28.9 Disorder of kidney and ureter, unspecified; F32.A Depression, unspecified; I48.0 Paroxysmal atrial fibrillation; I35.0 Nonrheumatic aortic (valve) stenosis; I34.0 Nonrheumatic mitral (valve) insufficiency; D64.9 Anemia, unspecified; I27.20 Pulmonary hypertension, unspecified; Z87.891 Personal history of nicotine dependence; Z79.01 Long term (current) use of anticoagulants; Z53.8 Procedure and treatment not carried out for other reasons
CPT/HCPCS: 52332; 36415; 85610; 85730; 99199; C1769; J0690; J1100; J2405; J2704; J3010; J7120

== ENCOUNTER 2023-11-25 10:27 | Outpatient (CLI) | payer MEDICARE, SELFPAY ==
[2023-11-25 11:29] LABS: Hematocrit 47.6 % (37.0-47.0); Hematocrit 48.4 % (37.0-47.0); Hemoglobin 14.9 g/dL (12.0-15.0); Immature Platelet Fraction Pct 5.2 % (0.9-11.2); Mean Corpuscular HGB Conc 30.8 g/dl (32-36); Mean Corpuscular Volume 97.4 fl (80-100); Platelet Count Result 107 k/mm3 (150-375); Red Blood Count 4.97 M/mm3 (4.2-5.4); Red Cell Distribution Width 13.8 % (11.5-14.5); White Blood Count 6.6 K/mm3 (4.5-10.0)
[2023-11-25 11:49] LABS: Parathyroid Intact 177.1 pg/mL (7.5-53.5)
[2023-11-25 11:50] LABS: INR 0.9; Prothrombin Time 12.9 Seconds (11.1-14.7)
[2023-11-25 11:51] LABS: Partial Thromboplastin Time 28.6 Seconds (22.3-36.8)
[2023-11-25 12:07] LABS: Creatinine Urine 52.9 mg/dL; Total Protein Urine Random 80 mg/dL; Ur Ttl Prot Creatinine Ratio 1.51 mg/mg (0-0.20)
== END 2023-11-25 10:28 | disposition home or self-care (01) ==
PROVIDERS: Internal Medicine Nephrology; Urology; PCP Internal Medicine; Visit Provider Anesthesiology
DX: N20.0 Calculus of kidney (principal); D64.9 Anemia, unspecified; I12.9 Hypertensive chronic kidney disease with stage 1 through stage 4 chronic kidney disease, or unspecified chronic kidney disease; N18.4 Chronic kidney disease, stage 4 (severe); Z01.818 Encounter for other preprocedural examination
CPT/HCPCS: 36415; 80069; 82570; 83970; 84156; 85014; 85018; 85027; 85055; 85610; 85730; 87086; 87088

== ENCOUNTER 2023-11-28 12:56 | Outpatient (CLI) | payer MEDICARE, SELFPAY ==
[2023-11-28 14:55] LABS: Albumin Level 4.1 g/dL (3.5-5.1); Anion Gap 8 mmol/L (4-12); Blood Urea Nitrogen 29 mg/dL (7-17); Calcium 9.4 mg/dL (8.4-10.2); Carbon Dioxide 23 mmol/L (22-30); Chloride 110 mmol/L (98-107); Estimated Glomerular Filt Rate 27; Glucose 70 mg/dL (65-110); Phosphorus 3.8 mg/dL (2.5-4.5); Potassium 4.3 mmol/L (3.4-5.0); Sodium 141 mmol/L (137-145)
== END 2023-11-28 12:57 | disposition home or self-care (01) ==
PROVIDERS: PCP Internal Medicine; Visit Provider Internal Medicine Nephrology
DX: Z76.89 Persons encountering health services in other specified circumstances (principal)
CPT/HCPCS: 36415; 80069

== ENCOUNTER 2023-12-02 00:24 | Day surgery (SDC) | payer MEDICARE, SELFPAY ==
[2023-11-18 11:13] VITALS: BMI 24.2
--- NOTE | 2023-11-18 11:55 | PC.NURSE ---
Report to the Outpatient Waiting Room, entrance under the green pavilion located off [facility], at time __6:30AM on date __12/02/23 . Planned Procedure Time: __8:30AM . Time changes happen often and if your time is changed the preop area will call you the afternoon before. - You and your visitor will be asked to self-screen and do not enter if you have any COVID symptoms. - A mask is optional within the hospital at this time. Patients may have clear liquids (water, carbonated beverages, clear teas, apple juice) until 3 hours prior to surgery with a maximum of 20 ounces. - No food from midnight until time of surgery. Take the following medications with a SIP of water the morning of surgery: ___BUPROPION, LEVOTHYROXINE & SOTALOL. MAY TAKE TRAMADOL NEEDED FOR PAIN. DO NOT STOP ANY OF YOUR OTHER PRESCRIPTION MEDICATIONS PRIOR TO SURGERY ?EXCEPT THE FOLLOWING Medications to discontinue per physician ____HOLD ELIQUIS & ALL VITAMINS/SUPPLEMENTS 3 DAYS PRE-OP PER DR SCHRADER(PER PATIENT)___ Date to take last dose 11/28/23 Please no make-up, nail mauritian, hairspray, perfume, deodorant, or body powder the day of surgery. No jewelry (including any body piercings) or valuables the day of surgery, leave them at home. Please take a shower or bath the night before, or the morning of, surgery with an antibacterial soap. Wear comfortable, loose fitting clothing. - Jewelry must be removed prior to entering the operating room. Rings and piercings that are not removed may be cut off. - The hospital will not accept responsibility for valuables. - Please leave all valuables, including medications, at home the day of surgery. If you are going home after surgery, a licensed miniature train driver must drive you home. - NO public transportation without another adult if you receive anesthesia. - We recommend that an adult stay with you for 24 hours following discharge. - We also recommend that you do not drive, make important decision, drink alcoholic beverages, or take any drugs that were not prescribed by your health care provider for at least 24 hours after your discharge time. Follow any additional instructions given to you from your surgeon. If you or anyone in your household have experienced Covid symptoms in the past week, please notify your surgeon or the nurse liaison at the phone number below for possible testing. Telephone instructions given to ____PATIENT and asked if any additional questions and then verbalized understanding. Patient advised to call surgeon office or pre surgery nurse liaison [phone] if any additional questions.
--- NOTE | 2023-11-29 17:40 | PM.HPGS ---
History of Present Illness History of Present Illness Consent: Risks, benefits, and alternatives have been discussed and questions answered. Patient agrees to proceed with procedure. Chief complaint: Renal Kidney Stone, Bladder Stones Narrative: Nelia Peterson is a 88 year old female who has a known chronic left UPJ obstruction managed with an indwelling stent. We do periodic stent exchanges. Unfortunately, the stents are becoming encrusted at shorter and shorter intervals. Recent attempted change was unsuccessful. She presents for left ESWL with exchange of a left encrusted ureteral stent. She is risks including, limited to, ureteral / renal injury requiring placement of percutaneous nephrostomy tube, hematuria, perinephric hematoma Review of Systems Review of Systems: All systems reviewed & are unremarkable except as noted in HPI and below PMFSH Past Medical History Medical History Jered-tachy syndrome Cerebral aneurysm Status post coil embolization. Chronic anemia Chronic kidney disease Current use of long term care administrator anticoagulation Degenerative disc disease Depression Diastolic congestive heart failure Dyslipidemia Endometriosis Heart failure with preserved ejection fraction EF was 60 to 65% in 07/2021. Hemorrhoids Histoplasmosis Hyperlipidemia Hypertension Hypothyroidism Intraoperative ureteral injury (07/2021) Kidney stones Including known right staghorn calculus. Mild aortic stenosis Mild pulmonary hypertension Mitral regurgitation mod to severe Moderate mitral regurgitation Nonspecific colitis Pacemaker Paroxysmal atrial fibrillation Pulmonary embolism Surgical History Surgical History History of arthroplasty of right knee History of cataract extraction History of colonoscopy with polypectomy History of cystoscopy History of lumbar surgery History of tonsillectomy and adenoidectomy History of total hysterectomy with bilateral salpingo-oophorectomy (BSO) Status post coil embolization of cerebral aneurysm Family History Family History Mother , in her 70s Hypertension Father Hypertension Acute myocardial infarction Social History Social History Social History: Surrogate decision maker: susanna Rothman. Code status: Full code. Smoking packs per day: 0.2 Smoking cigarettes per day: 4.0 Years smoked: 15 Smoking pack-years: 3.00 Smoking status: Former smoker Tobacco type: cigarettes Second hand tobacco smoke exposure: No Smoking end date: 06/06/74 Alcohol intake: current Drinks per week: 1 Alcohol use details: 6 oz of wine. Substance use: never Substance use type: does not use Lack of Transportation: No Lack of Food: Never True Current Housing: I Have Housing Concerned About Future Housing: No Difficulty Paying Gas/Electric Bills: No Difficulty Paying for Meds: No Currently Unemployed: No Education: Master's Degree or Higher Difficulty w/ Childcare or Family Care: No Living arrangements: alone Additional living arrangements comments: as of September 2020. She and her had 3 children, all whom are . Additional occupation/education comments: Retired. Spiritual care concerns: No Meds Home Medications and Allergies Home Medications Medication Instructions Recorded Confirmed Type bupropion HCl 150 mg tablet,12 hr 150 mg PO BID 11/19/19 11/18/23 History sustained-release cholecalciferol (vitamin D3) 50 50 mcg PO DAILY 11/19/19 11/18/23 History mcg (2,000 unit) capsule (Vitamin D3) levothyroxine 50 mcg tablet 50 mcg PO QAM 11/19/19 11/18/23 History pravastatin 80 mg tablet 80 mg PO HS 11/19/19 11/18/23 History tramadol 50 mg tablet 50 mg PO Q6H PRN pain #20 ta
[2023-12-02] VITALS (11 sets, daily range): BP systolic 155–202; BP diastolic 71–103; PULSE 60–61; RESP 12–16; TEMP 36.4–36.7; O2SAT 100
--- NOTE | ~2023-12-02 | XR_ITS ---
Supine and upright views of the abdomen Clinical history: Lithotripsy COMPARISON: 09/22/2022 Findings: Bowel gas pattern is nonspecific. No evidence for obstruction or free air. Extensive stagho rn calculus of the right renal collecting system is similar to prior exam. Probable 2 large stones in the left renal pelvis, measuring 2.4 cm and 2.5 cm in length respectively. Left ureteral stent in pl amanda. Suspected large urinary bladder stones. Osseous structures are intact. Impression: Extensive staghorn right renal calculus is similar to prior exam. 2 large left renal pelvis/proximal left ureteral stones, with left ureteral stent present. Probable large urinary bladder stones. Reviewed, dictated and finalized at location . Impression: Extensive staghorn right renal calculus is similar to prior exam. 2 large left renal pelvis/proximal left ureteral stones, with left ureteral gulshan nt present. Probable large urinary bladder stones.
--- NOTE | 2023-12-02 06:15 | WPDHPUPDATE1 ---
History and Physical Update Update Date/Time: 12/02/23 06:15 History and Physical has been reviewed, including an updated exam of the patient. There are NO changes in the patient's condition. Risks, benefits, and alternatives have been discussed and questions answered. Patient agrees to proceed with procedure.
[2023-12-02] MEDS: LACTATED RINGERS 1,000 ML 30 ML IV CONT ×2 (07:21→09:30)
--- NOTE | 2023-12-02 08:22 | WPDANESEPPF ---
Anes - Initial Pre Proc Eval Procedure: Operation Date: 12/02/23 08:30 Proposed Procedures p Left Extracorporeal Shock Wave Lithotripsy to Left Ureteral Stent - Nabil Shaikh MD s Holmium Laser Lithotripsy of Bladder Stone, Left Ureteral Stent Exchange - Nabil Shaikh MD Date/Time: 12/02/23 08:22 Surgeon: Nabil Shaikh MD Pre Op Diagnosis: Renal Kidney Stone, Bladder Stones Patient Data Age: 88 Gender: F Height: 1.57 m Weight: 62.25 kg Last Vital Signs Temp 36.4 C 12/02/23 07:11 Pulse 61 12/02/23 07:11 Resp 16 12/02/23 07:11 BP 155/76 H 12/02/23 07:11 Pulse Ox 100 12/02/23 07:11 O2 Del Method Room Air 12/02/23 07:11 Allergies Allergy/AdvReac Type Severity Reaction Status Date / Time codeine AdvReac Mild Nausea Verified 12/02/23 06:33 Home Medications Medication Instructions Recorded Confirmed Type bupropion HCl 150 mg tablet,12 hr 150 mg PO BID 11/19/19 12/02/23 History sustained-release cholecalciferol (vitamin D3) 50 50 mcg PO DAILY 11/19/19 12/02/23 History mcg (2,000 unit) capsule (Vitamin D3) levothyroxine 50 mcg tablet 50 mcg PO QAM 11/19/19 12/02/23 History pravastatin 80 mg tablet 80 mg PO HS 11/19/19 12/02/23 History tramadol 50 mg tablet 50 mg PO Q6H PRN pain #20 tabs 07/30/22 12/02/23 Rx sotalol 80 mg tablet 80 mg PO Q12HR #60 tabs 09/24/22 12/02/23 Rx apixaban 2.5 mg tablet (Eliquis) 2.5 mg PO BID 11/19/22 12/02/23 History ferrous sulfate 325 mg (65 mg 325 mg PO BID 05/09/23 12/02/23 History iron) tablet bisacodyl 5 mg tablet,delayed 5 mg PO QAM PRN Constipation #30 05/12/23 12/02/23 Rx release (Laxative (bisacodyl)) tabs Patient hx anesthesia problems: none Family hx anesthesia problems: none Results Review: All pre-operative results and documents have been reviewed as part of the pre-operative evaluation. [facility] Past Medical History Medical History Jered-tachy syndrome Cerebral aneurysm Status post coil embolization. Chronic anemia Chronic kidney disease Current use of penitentiary anticoagulation Degenerative disc disease Depression Diastolic congestive heart failure Dyslipidemia Endometriosis Heart failure with preserved ejection fraction EF was 60 to 65% in 07/2021. Hemorrhoids Histoplasmosis Hyperlipidemia Hypertension Hypothyroidism Intraoperative ureteral injury (07/2021) Kidney stones Including known right staghorn calculus. Mild aortic stenosis Mild pulmonary hypertension Mitral regurgitation mod to severe Moderate mitral regurgitation Nonspecific colitis Pacemaker Paroxysmal atrial fibrillation Pulmonary embolism Surgical History Surgical History History of arthroplasty of right knee History of cataract extraction History of colonoscopy with polypectomy History of cystoscopy History of lumbar surgery History of tonsillectomy and adenoidectomy History of total hysterectomy with bilateral salpingo-oophorectomy (BSO) Status post coil embolization of cerebral aneurysm Family History Family History Mother , in her 70s Hypertension Father Hypertension Acute myocardial infarction Social History Social History Social History: Surrogate decision maker: Seth Peterson, grandson. Code status: Full code. Smoking packs per day: 0.2 Smoking cigarettes per day: 4.0 Years smoked: 15 Smoking pack-years: 3.00 Smoking status: Former smoker Tobacco type: cigarettes Second hand tobacco smoke exposure: No Smoking end date: 06/06/74 Alcohol intake: current Drinks per week: 1 Alcohol use details: 6 oz of wine. Substance use: never Substance use type: does not use Lack of Transportation: No Lack of Food: Never True Current Ho
[2023-12-02] MEDS: ceFAZolin 2 GM/D5W 50 ML 2 GM/50 ML BAG IVPB (08:27)
--- NOTE | 2023-12-02 09:26 | W.PM.PROC2 ---
Procedure Note - Detailed Date of Procedure 12/02/23 Pre-op Diagnosis Renal Kidney Stone, Bladder Stones, Left UPJ obstruction, encrusted left ureteral stent Post-op Diagnosis Same Procedure Performed Cystoscopy, laser lithotripsy bladder stones, left ESWL, left ureteral stent exchange Surgeon Nabil Shaikh MD Anesthesia General Description of Procedure Patient is brought to the operative suite where she has prepped draped in routine sterile fashion while in a dorsal lithotomy position. Done after the end of the uneventful induction of a general LMA anesthetic. Focal point Lithotripter was placed at her encrusted proximal renal coil were 2000 shocks were delivered at a power setting of 4. Encrustations on the distal coil are managed with a 100 micron holmium laser fiber. I was able to remove the left ureteral stent replaced it with a 4.8 F variable length stent the proximal pelvis and distal bladder. I remove our interval up to stent exchange to approximately 2 months. Drains Yes Packing No Pathology None sent Complications No immediate complications Condition Stable
[2023-12-02] MEDS: fentaNYL CITRATE INJ (*CRX) 100 MCG/2 ML VIAL 25 MCG IV PUSH (11:01)
--- NOTE | 2023-12-02 11:16 | SUR.PHASEII ---
DR. YU NOTIFIED RE: PATIENT'S PAIN LEVEL (CAME DOWN FROM 10/10 TO 6/10 AND ELEVATED BLOOD PRESSURE. INSTRUCTED TO GIVE HYDRALAZINE AND OXYCODONE.
== END 2023-12-02 12:09 | disposition home or self-care (01) ==
PROVIDERS: PCP Internal Medicine; Visit Provider Urology
PROC: (CPT 50590; principal; 2023-12-02 08:30)
PROC: (CPT 52352; 2023-12-02 08:30)
DX: N13.2 Hydronephrosis with renal and ureteral calculous obstruction (principal); N21.0 Calculus in bladder; N18.9 Chronic kidney disease, unspecified; Z79.01 Long term (current) use of anticoagulants; I50.30 Unspecified diastolic (congestive) heart failure; E78.5 Hyperlipidemia, unspecified; E03.9 Hypothyroidism, unspecified; I13.0 Hypertensive heart and chronic kidney disease with heart failure and stage 1 through stage 4 chronic kidney disease, or unspecified chronic kidney disease; I48.0 Paroxysmal atrial fibrillation; Z86.711 Personal history of pulmonary embolism; Z95.0 Presence of cardiac pacemaker; Z87.891 Personal history of nicotine dependence
CPT/HCPCS: 52356; 74018; A9270; C1758; C1769; C2617; J0690; J1100; J2371; J2405; J2704; J3010; J7120

== ENCOUNTER 2023-12-02 20:44 | Inpatient (IN) | payer MEDICARE, SELFPAY ==
--- NOTE | ~2023-12-02 | NM_ITS ---
EXAMINATION: NM lung vent and perfusion DATE: 12/05/2023 10:28 INDICATION: Chest pain TECHNIQUE: 10.5 mCi xenon-133 by inhalation and 5.2 mCi Tc-99m MAA by intravenous route. Scintigraph ic images of the chest were obtained. COMPARISON: Chest radiograph dated 12/05/2023 FINDINGS: There is homogeneous radiotracer activity throughout the lungs on the single breath ventilation seque nce. There is a single small unmatched perfusion defect at the lateral anterior segment of the left u pper lobe. There is relatively homogeneous perfusion throughout the remainder of the lungs. No other discrete ventilation and perfusion mismatch is identified. IMPRESSION: 1. Low probability for pulmonary embolism. Reviewed, dictated and finalized at location B.
--- NOTE | ~2023-12-02 | XR_ITS ---
Portable chest x-ray Comparison: 09/20/2022 Clinical History: Chest pain Findings: There is probable mild interstitial prominence, especially the lung bases. There are calci fied hilar/mediastinal lymph nodes. Possible minimal left pleural effusion. Cardiomediastinal silhou ette is stable, with loop recorder. Bones and soft tissues are unremarkable. Impression: Probable COPD and/or other chronic bibasilar interstitial disease. Minimal left pleural effusion. Mild cardiomegaly with loop recorder. Reviewed, dictated and finalized at location M. Impression: Probable COPD and/or other chronic bibasilar interstitial disease. Minimal left pleural effusion. Mild cardiomegaly with loop recorder.
--- NOTE | ~2023-12-02 | CT_ITS ---
CT abdomen pelvis wo con Ordering provider: Timmy Morataya MD History: 88 years Female with . Left leg pain status post lithotripsy . Comparison: May 09, 2023 Technique: CT abdomen and pelvis without IV and without oral contrast. Automated exposure control and iterative reconstruction technique were employed. The dose-length product was 335.41 mGy-cm. Findings: VISUALIZED LOWER CHEST: Thickening in the oblique fissure is seen on the right side. Dependent atelec tatic changes.. UPPER ABDOMINAL ORGANS: Liver: Normal. Gallbladder: Cholelithiasis. Spleen: Multiple calcified granulomas. Stomach/duodenum: Small sliding hiatus hernia. Pancreas: Atrophic. Adrenals: Normal. Kidneys: Left hydronephrotic changes with left perinephric fat stranding and with a hematoma extendin g to the left side of the pelvis. Left double-J stent is noted. Bilateral staghorn stones are noted.. PELVIC ORGANS: The bladder shows multiple stones. BOWEL AND MESENTERY: Colon: Fat stranding is seen around the descending colon near to the splenic flexure. This may be due to inflammatory changes or extension of blood from the retroperitoneal area. The appendix is not dem onstrated. Small Bowel: Normal. No obstruction. Peritoneum/mesentery: No free air. Minimal Free fluid is seen in the pelvis. No mesenteric lymphadeno ruth. RETROPERITONEUM: Mild atheromatous disease of the abdominal aorta. No retroperitoneal lymphadenopat hy. MUSCULOSKELETAL: Superficial soft tissues: The superficial soft tissues are normal. Bones: Age appropriate degenerative changes of the spine. IMPRESSION: 1. Left retroperitoneal hematoma with left hydronephrotic changes and bilateral staghorn stones. Atr ophic right kidney Left double-J stent. 2. Multiple stones in the urinary bladder. 3. Minimal fluid in the pelvis. 4. Fat stranding around the descending colon which may be due to inflammatory changes or extension o f the blood around the colon. Timmy Morataya MD was notified of the result of the patient at 11:19 PM on December 02, 2023. Reviewed, dictated and finalized at location A. IMPRESSION: 1. Left retroperitoneal hematoma with left hydronephrotic changes and bilatera l staghorn stones. Atrophic right kidney Left double-J stent. 2. Multiple stones in the urinary bladder. 3. Minimal fluid in the pelvis. 4. Fat stranding around the descending colon which may be due to inflammatory changes or extension of the blood around the colon. Timmy Morataya MD was notified of the result of the patient at 11:19 PM on December 02, 2023.
[2023-12-02 20:43] VITALS: BP 158/90; PULSE 62; RESP 15; TEMP 36.6; O2SAT 98
[2023-12-02 22:10] LABS: Bacteria Urine 4+ /hpf; Need Manual Microscopic Reviewed; RBC Urine >100 /hpf (0-2); Squamous Epithelial Cell Urine Few /hpf (Few); WBC Urine >100 /hpf (0-3)
[2023-12-02 22:11] LABS: Add Urine Microscopic? YES; Appearance Urine Turbid (Clear); Bilirubin Urine 1+ (Negative); Blood Urine 3+ (Negative); Color Urine Red (Yellow); Glucose Urine UA Negative (Negative); Ketones Urine Negative (Negative); Leukocyte Esterase Ur 3+ LEU/UL (Negative); Nitrate Urine Negative (Negative); Protein Urine 4+ mg/dL (Negative); Specific Grav Ur 1.017 (1.001-1.035); Urobilinogen Urine 0.2 mg/dL (<2.0); pH Urine 6.5 (5.0-9.0)
[2023-12-02 22:44] LABS: Basophils Percent Auto 0.1 % (0.2-1.2); Hematocrit 37.2 % (37.0-47.0); Hemoglobin 12.1 g/dL (12.0-15.0); Immature Granulocyte Absolute 0.03 K/mm3 (0.00-0.031); Immature Granulocyte Percent A 0.3 % (0-0.5); Lymphocytes Absolute Auto 0.92 K/mm3 (0.9-3.2); Lymphocytes Percent Auto 8.7 % (18.3-44.2); Mean Corpuscular HGB Conc 32.5 g/dl (32-36); Mean Corpuscular Hemoglobin 30.6 pg (26-34); Mean Corpuscular Volume 94.2 fl (80-100); Mean Platelet Volume 10.6 fl (7.4-10.4); Monocytes Absolute Auto 0.7 K/mm3 (0.1-0.6); Monocytes Percent Auto 6.5 % (2.6-8.5); Neutrophils Percent Auto 84.4 % (45.5-73.1); Platelet Count Result 128 k/mm3 (150-375); Red Blood Count 3.95 M/mm3 (4.2-5.4); Red Cell Distribution Width 13.8 % (11.5-14.5); White Blood Count 10.6 K/mm3 (4.5-10.0)
[2023-12-02] MEDS: ONDANSETRON INJ 4 MG/2 ML VIAL IV PUSH (22:44)
[2023-12-02] MEDS: SODIUM CHLORIDE 0.9% IV 1,000 ML 999 ML IV CONT (22:44)
[2023-12-02] MEDS: HYDROmorphone HCL INJ (*CRX) 1 MG/ML SYR 0.5 MG IV PUSH (22:45)
[2023-12-02 22:56] LABS: Alanine Aminotransferase 9 U/L (6-35); Albumin Level 3.8 g/dL (3.5-5.1); Alkaline Phosphatase 84 U/L (38-126); Anion Gap 10 mmol/L (4-12); Aspartate Amino Transferase 19 U/L (14-36); Bilirubin,Total 0.6 mg/dL (0.2-1.3); Blood Urea Nitrogen 36 mg/dL (7-17); Carbon Dioxide 21 mmol/L (22-30); Chloride 107 mmol/L (98-107); Estimated CRCL calculation 15 ml/min; Estimated Glomerular Filt Rate 24; Glucose 116 mg/dL (65-110); Lipase 221 U/L (23-300); Potassium 4.7 mmol/L (3.4-5.0); Sodium 138 mmol/L (137-145)
[2023-12-03] VITALS (14 sets, daily range): BP systolic 117–166; BP diastolic 45–92; PULSE 60–148; RESP 15–20; TEMP 35.7–36.8; O2SAT 92–100
--- NOTE | 2023-12-03 | ED.GENADULT ---
HPI - General Adult General Chief complaint: Abdominal Pain Stated complaint: unwitnessed fall out of w/c Time Seen by Provider: 12/02/23 21:36 History of Present Illness HPI narrative: Patient is a 88-year-old female who presents emergency department with chief complaint of flank pain. Patient reports that she had a urological procedure today with lithotripsy and has been having severe pain in her left flank since the procedure the patient reports they had to be very aggressive with the procedure today as the stone was not wanting to break up the patient reports she has a stent in place and reports that the pain is not been relieved by anything. Related Data Home Medications Medication Instructions Recorded Confirmed bupropion HCl 150 mg tablet,12 hr 150 mg PO BID 11/19/19 12/02/23 sustained-release cholecalciferol (vitamin D3) 50 50 mcg PO DAILY 11/19/19 12/02/23 mcg (2,000 unit) capsule (Vitamin D3) levothyroxine 50 mcg tablet 50 mcg PO QAM 11/19/19 12/02/23 pravastatin 80 mg tablet 80 mg PO HS 11/19/19 12/02/23 apixaban 2.5 mg tablet (Eliquis) 2.5 mg PO BID 11/19/22 12/02/23 ferrous sulfate 325 mg (65 mg 325 mg PO BID 05/09/23 12/02/23 iron) tablet Allergies Allergy/AdvReac Type Severity Reaction Status Date / Time codeine AdvReac Mild Nausea Verified 12/02/23 20:49 Review of Systems Review of Systems: A 10 system review of systems was completed on the patient and is negative except for what is stated in the HPI. Nursing and ancillary documentation was reviewed. [facility] Past Medical History Medical History Jered-tachy syndrome Cerebral aneurysm Status post coil embolization. Chronic anemia Chronic kidney disease Current use of fci anticoagulation Degenerative disc disease Depression Diastolic congestive heart failure Dyslipidemia Endometriosis Heart failure with preserved ejection fraction EF was 60 to 65% in 07/2021. Hemorrhoids Histoplasmosis Hyperlipidemia Hypertension Hypothyroidism Intraoperative ureteral injury (07/2021) Kidney stones Including known right staghorn calculus. Mild aortic stenosis Mild pulmonary hypertension Mitral regurgitation mod to severe Moderate mitral regurgitation Nonspecific colitis Pacemaker Paroxysmal atrial fibrillation Pulmonary embolism Surgical History Surgical History History of arthroplasty of right knee History of cataract extraction History of colonoscopy with polypectomy History of cystoscopy History of lumbar surgery History of tonsillectomy and adenoidectomy History of total hysterectomy with bilateral salpingo-oophorectomy (BSO) Status post coil embolization of cerebral aneurysm Family History Family History Mother , in her 70s Hypertension Father Hypertension Acute myocardial infarction Social History Social History Social History: Surrogate decision maker: Seth Peterson, grandson. Code status: Full code. Smoking packs per day: 0.2 Smoking cigarettes per day: 4.0 Years smoked: 15 Smoking pack-years: 3.00 Smoking status: Former smoker Tobacco type: cigarettes Second hand tobacco smoke exposure: No Smoking end date: 06/06/74 Alcohol intake: current Drinks per week: 1 Alcohol use details: 6 oz of wine. Substance use: never Substance use type: does not use Lack of Transportation: No Lack of Food: Never True Current Housing: I Have Housing Concerned About Future Housing: No Difficulty Paying Gas/Electric Bills: No Difficulty Paying for Meds: No Currently Unemployed: No Education: Master's Degree or Higher Difficulty w/ Childcare or Family Care: No Living arrangements: alone Additional living arrang
--- NOTE | 2023-12-03 00:45 | PM.IMHP ---
H&P: HPI History of Present Illness Date/Time: 12/03/23 00:45 Chief Complaint: back pain Narrative: this is an 88-year-old female with past medical history significant for kidney stone, atrial fibrillation rate controlled and anticoagulated. Patient is status post lithotripsy comes to the emergency room due to back pain. Preliminary workup was significant for retroperitoneal hematoma. CT abdomen pelvis wo con Ordering provider: Timmy Morataya MD History: 88 years Female with . Left leg pain status post lithotripsy . Comparison: May 09, 2023 Technique: CT abdomen and pelvis without IV and without oral contrast. Automated exposure control and iterative reconstruction technique were employed. The dose-length product was 335.41 mGy-cm. Findings: VISUALIZED LOWER CHEST: Thickening in the oblique fissure is seen on the right side. Dependent atelectatic changes.. UPPER ABDOMINAL ORGANS: Liver: Normal. Gallbladder: Cholelithiasis. Spleen: Multiple calcified granulomas. Stomach/duodenum: Small sliding hiatus hernia. Pancreas: Atrophic. Adrenals: Normal. Kidneys: Left hydronephrotic changes with left perinephric fat stranding and with a hematoma extending to the left side of the pelvis. Left double-J stent is noted. Bilateral staghorn stones are noted.. PELVIC ORGANS: The bladder shows multiple stones. BOWEL AND MESENTERY: Colon: Fat stranding is seen around the descending colon near to the splenic flexure. This may be due to inflammatory changes or extension of blood from the retroperitoneal area. The appendix is not demonstrated. Small Bowel: Normal. No obstruction. Peritoneum/mesentery: No free air. Minimal Free fluid is seen in the pelvis. No mesenteric lymphadenopathy. RETROPERITONEUM: Mild atheromatous disease of the abdominal aorta. No retroperitoneal lymphadenopathy. MUSCULOSKELETAL: Superficial soft tissues: The superficial soft tissues are normal. Bones: Age appropriate degenerative changes of the spine. IMPRESSION: 1. Left retroperitoneal hematoma with left hydronephrotic changes and bilateral staghorn stones. Atrophic right kidney Left double-J stent. 2. Multiple stones in the urinary bladder. 3. Minimal fluid in the pelvis. 4. Fat stranding around the descending colon which may be due to inflammatory changes or extension of the blood around the colon. Timmy Morataya MD was notified of the result of the patient at 11:19 PM on December 02, 2023. Review of Systems Review of Systems: back pain status post lithotripsy Constitutional: Constitutional: Reports weakness Eyes: Eyes: Denies change in vision ENT: Denies dysphagia and Denies odynophagia Cardiovascular: Cardiovascular: Denies chest pain and Reports lightheadedness Respiratory: Respiratory: Denies chest congestion and Denies cough Gastrointestinal: Gastrointestinal: Denies abdominal pain, Denies nausea and Denies vomiting Genitourinary: Genitourinary: Reports flank pain Musculoskeletal: Musculoskeletal: Reports muscle weakness Integumentary/Breasts: Skin/Breast: Denies rash Neurologic: Denies focal weakness and Denies Sensory deficit (Neuro) Psychiatric: Psychiatric: Reports no additional psychiatric complaints and Reports as per HPI Endocrine: Endocrine: Denies cold intolerance, Denies heat intolerance, Denies polyphagia, Denies polydipsia and Denies polyuria Hematologic/Lymphatic: Hematologic/Lymphatic: Reports no additional hematologic/lymphatic complaints and Reports as per HPI Allergic/Immunologic: Allergic/Immunologic: Reports no additional allergic/immunologic complaints and Reports as per HPI [facility] Past Medical History Medical History Jered-tachy syndrome Cerebral aneurysm Status post coil embolization. 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
--- NOTE | 2023-12-03 02:05 | ADMGEN ---
This patient, Nelia Peterson, was admitted to [facility] Surg Room 316-02. Patient/family oriented to hospital policies and general routines including ID bracelet, bed and alarms, visiting hours, pain management, procedures, bathroom and other care routines, personal items, smoking policy, room service/diet, and visiting hours. Information on how to activate the Rapid Response Team has been discussed. Patient/Family are encouraged to report perceived risks to care and to ask questions if they do not understand what they are told or what they should do.
[2023-12-03] MEDS: SODIUM CHLORIDE 0.9% IV 1,000 ML 125 ML IV CONT ×2 (03:11→10:32)
[2023-12-03] MEDS: HYDROmorphone HCL INJ (*CRX) 1 MG/ML SYR 0.5 MG IV PUSH ×2 (03:14→22:11)
[2023-12-03] MEDS: ONDANSETRON INJ 4 MG/2 ML VIAL IV PUSH ×2 (03:15→10:32)
[2023-12-03] MEDS: LEVOTHYROXINE SODIUM 50 MCG TABLET PO (06:05)
[2023-12-03 06:42] LABS: Hematocrit 34.9 % (37.0-47.0)
[2023-12-03] MEDS: FERROUS SULFATE 325 MG TABLET DR BY MOUTH ×2 (08:09→16:24)
[2023-12-03] MEDS: buPROPion HCL SR (12 HR) 150 MG TAB PO ×2 (08:09→20:51)
[2023-12-03] MEDS: SOTALOL HCL 80 MG TABLET PO ×2 (08:09→20:52)
[2023-12-03] MEDS: traMADol HCL (*CRX) 50 MG TABLET PO ×3 (08:12→20:50)
--- NOTE | 2023-12-03 08:32 | PM.IMPN ---
Progress Note: A&P Assessment and Plan (1) Retroperitoneal hematoma: Code(s): K68.3 - Retroperitoneal hematoma Status: Acute Assessment and Plan: S/P lithotripsy and stent exchange now with left retroperitoneal hematoma Hemoglobin 12.0--->11.0 this morning serial H/H pain control with tramadol and Dilaudid Telemetry NPO currently 12/02: Small ecchymosis to left flank (less than a dime size) with flank tenderness. Monitor for worsening hematoma. Trend H/H Pain control Clear liquids U/A concerns for infection. Urine culture pending. Added Rocehpin. Bedrest given retroperitoneal hematoma Transfuse for hemoglobin < 7 g/dl If patient has persistent bleeding she would need transfer to tertiary care center. (2) Paroxysmal atrial fibrillation: Code(s): I48.0 - Paroxysmal atrial fibrillation Status: Acute Assessment and Plan: Rate controlled with sotalol and on Eliquis. Also has medtronic micra pacemaker DDD (60-120 bpm) placed 09/2022 Eliquis on hold currently given hematoma (3) Chronic kidney disease: Qualifiers: Chronic kidney disease stage: unspecified stage Qualified Code(s): N18.9 - Chronic kidney disease, unspecified Code(s): N18.9 - Chronic kidney disease, unspecified Status: Chronic Assessment and Plan: BUN and creatinine seems to range 1.4-1.9, BUN 25-30 Cr 2.0 this morning IVF with NS at 75 ml per hour (4) Staghorn renal calculus: Code(s): N20.0 - Calculus of kidney Status: Chronic Assessment and Plan: status post lithotripsy (5) Mitral regurgitation: Code(s): I34.0 - Nonrheumatic mitral (valve) insufficiency Status: Acute Assessment and Plan: stable Plan Feeding: Clear liquids Analgesia: Tramadol versus Dilaudid Thromboembolic prophylaxis: SCDs Lines: PIV Antibiotics: Rocephin Disposition: Monitor hemoglobin. Patient discharged home medically stable. Advance Care Plan I have confirmed that the patient's Advanced Care Plan is present, code status is documented, or surrogate decision maker is listed in patient medical record.: Yes Medication Reconciliation I have utilized all available resources to obtain, update and review the patients current medications (includes all prescriptions, OTC, herbals, cannabis, and nutritional supplements).: Yes Subjective Date/time seen: 12/03/23 08:32 Interval history: 88 year old female with a PMH of kidney stone, pulmonary embolus, atrial fibrillation on Eliquis s/p medtronic micra pacemaker, hypothyroidism, HTN, CHFpEF, depression, CKD, high cholesterol, and cerebral aneurysm who recently had a laser lithotripsy with stent exchange on 12/[address] Shaikh. She presented to the emergency room overnight with complaints of flank pain. Imaging showed a left retroperitoneal hematoma with left hydronephrotic changes and bilateral staghorn stones. She was admitted for serial H/H and treatment for UTI with urology consult. 12/02: Patient is seen and examined today. She is resting in bed in no acute distress. She reports that she had her lithotripsy procedure yesterday. At home she became dizzy when standing up from the toilet and fell down on her left knee. She could not stand back up on her own so she sat on the floor until her friend came back to check on her. She estimates she was down for a couple of hours. She did not fall striking her back. She was having severe left flank pain and nausea. She was unsure if the nausea was because of the pain or the recent anesthesia. Today she is comfortable at rest with pain medication. She is not actively nauseated. Plan was discussed with her and Urologist, Dr Garcia. Review of Systems Review of Systems: All systems reviewed & are unremarkable except as noted in HPI and below Exam Narrative: General: well appearing, appears stated age. HEENT: normocephalic, atraumatic. Mucous
[2023-12-03 11:27] LABS: Hematocrit 34.3 % (37.0-47.0); Hemoglobin 10.6 g/dL (12.0-15.0)
--- NOTE | 2023-12-03 12:22 | WPDURCON ---
Assessment and Plan Assessment and plan (1) Retroperitoneal hematoma: Code(s): K68.3 - Retroperitoneal hematoma Status: Acute Assessment and Plan: right RP hematoma after ESWL - Recommend holding all NSAIDS, anticoagulants - Bedrest, monitor serial Cr and renal function, serial q 12 hour hgb/hct, transfuse as necessary to keep hgb> 7 -If becomes unstable or needing multiple transfusions would need IR angio-embolization, this would require transfer of care to higher level facility (2) Abnormal urinalysis: Code(s): R82.90 - Unspecified abnormal findings in urine Status: Acute Assessment and Plan: agree with broad spectrum empiric IV abx (3) Ureterolithiasis: Code(s): N20.1 - Calculus of ureter Status: Acute Urology Consult Note HPI Date Seen: 12/03/23 Requesting Physician: Mabel Ortiz APRN Primary Care Provider: Andrés Viveros, Consult Narrative Narrative: Nelia Peterson is a 88 year 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 She takes eliquis, she has been off of it preoperatively. Her pain is improved. + nausea, no fever or chills, pain improved with IV narcotics. Been on bedrest. She has not been taking NSAIDS. Baseline Cr 1.8, Cr on admission 2.0. Denies gross hematuria or dysuria. Review of Systems Constitutional: Constitutional: Denies body ache(s) and Denies chills Eyes: Eyes: Reports as per HPI and Reports no additional eye complaints ENT: Reports system reviewed and no additional complaints, except as documented Respiratory: Respiratory: Denies chest congestion, Denies cough, Denies hemoptysis and Denies dyspnea Gastrointestinal: Gastrointestinal: Reports abdominal pain Genitourinary: Genitourinary: Reports flank pain Musculoskeletal: Musculoskeletal: Reports no additional musculoskeletal complaints and Reports as per HPI Integumentary/Breasts: Skin/Breast: Reports system reviewed and no additional complaints, except as docu Neurologic: Reports system reviewed and no additional complaints, except as documented [facility] Past Medical History Medical History Jered-tachy syndrome Cerebral aneurysm Status post coil embolization. 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 Hemorrhoids Histoplasmosis Hyperlipidemia Hypertension Hypothyroidism Intraoperative ureteral injury (07/2021) Kidney stones Including known right staghorn calculus. Mild aortic stenosis Mild pulmonary hypertension Mitral regurgitation mod to severe Moderate mitral regurgitation Nonspecific colitis Pacemaker Paroxysmal atrial fibrillation Pulmonary embolism Surgical History Surgical History History of arthroplasty of right knee History of cataract extraction History of colonoscopy with polypectomy History of cystoscopy History of lumbar surgery History of tonsillectomy and adenoidectomy History of total hysterectomy with bilateral salpingo-oophorectomy (BSO) Status post coil embolization of cerebral aneurysm Family History Family History Mother , in her 70s Hypertension Father Hypertension Acute myocardial infarction Social History Social History Social History: Surrogate decision maker: Seth Peterson, grandson. Code status: Full code. Smoking packs per day: 0.25 Smoking cigarettes per day: 5.0 Years smoked: 15 Smoking pack-years: 3.75 Smoking status: Former smoker Tobacco type: cigar
[2023-12-03] MEDS: cefTRIAXone 2 GM/NS 100 ML 2 GM/100 ML BAG IVPB (13:38)
[2023-12-03 20:10] LABS: Hematocrit 34.9 % (37.0-47.0); Hemoglobin 11.1 g/dL (12.0-15.0)
[2023-12-03] MEDS: PRAVASTATIN SODIUM 20 MG TABLET 80 MG PO (20:51)
[2023-12-04] VITALS (12 sets, daily range): BP systolic 126–144; BP diastolic 60–66; PULSE 58–114; RESP 16–18; TEMP 36.5–37; O2SAT 92–98; BMI 23.8
[2023-12-04] MEDS: HYDROmorphone HCL INJ (*CRX) 1 MG/ML SYR 0.5 MG IV PUSH ×2 (04:33→12:42)
[2023-12-04] MEDS: LEVOTHYROXINE SODIUM 50 MCG TABLET PO (06:08)
[2023-12-04 06:14] LABS: Basophils Percent Auto 0.3 % (0.2-1.2); Eosinophils Percent Auto 0.4 % (0-4.4); Hematocrit 31.7 % (37.0-47.0); Immature Granulocyte Absolute 0.06 K/mm3 (0.00-0.031); Immature Granulocyte Percent A 0.6 % (0-0.5); Lymphocytes Absolute Auto 0.65 K/mm3 (0.9-3.2); Lymphocytes Percent Auto 6.6 % (18.3-44.2); Mean Corpuscular HGB Conc 31.5 g/dl (32-36); Mean Corpuscular Hemoglobin 30.3 pg (26-34); Mean Corpuscular Volume 96.1 fl (80-100); Mean Platelet Volume 10.9 fl (7.4-10.4); Monocytes Absolute Auto 0.6 K/mm3 (0.1-0.6); Monocytes Percent Auto 6.2 % (2.6-8.5); Neutrophils Absolute Auto 8.5 K/mm3 (1.3-6.7); Neutrophils Percent Auto 85.9 % (45.5-73.1); Platelet Count Result 117 k/mm3 (150-375); Red Cell Distribution Width 14.2 % (11.5-14.5); White Blood Count 9.9 K/mm3 (4.5-10.0)
[2023-12-04 06:17] LABS: Hematocrit 32.2 % (37.0-47.0); Hemoglobin 9.9 g/dL (12.0-15.0)
[2023-12-04 06:27] LABS: Albumin Level 3.1 g/dL (3.5-5.1); Alkaline Phosphatase 68 U/L (38-126); Anion Gap 9 mmol/L (4-12); Aspartate Amino Transferase 16 U/L (14-36); Bilirubin,Total 0.5 mg/dL (0.2-1.3); Blood Urea Nitrogen 43 mg/dL (7-17); Carbon Dioxide 18 mmol/L (22-30); Chloride 106 mmol/L (98-107); Estimated CRCL calculation 11 ml/min; Estimated Glomerular Filt Rate 17; Glucose 76 mg/dL (65-110); Magnesium 1.9 mg/dL (1.6-2.3); Potassium 4.7 mmol/L (3.4-5.0); Sodium 133 mmol/L (137-145)
[2023-12-04 06:31] LABS: Alanine Aminotransferase < 6 U/L (6-35)
--- NOTE | 2023-12-04 07:26 | P.PNIM_ITS ---
Progress Note: A&P Assessment and Plan (1) Retroperitoneal hematoma: Code(s): K68.3 - Retroperitoneal hematoma Status: Acute Assessment and Plan: S/P lithotripsy and stent exchange now with left retroperitoneal hematoma * Hemoglobin 12.0--->11.0 this morning * serial H/H * pain control with tramadol and Dilaudid * Telemetry * NPO currently 12/02: Small ecchymosis to left flank (less than a dime size) with flank tenderness. * Monitor for worsening hematoma. * Trend H/H * Pain control * Clear liquids * U/A concerns for infection. Urine culture pending. Added Rocehpin. * Bedrest given retroperitoneal hematoma * Transfuse for hemoglobin < 7 g/dl * If patient has persistent bleeding she would need transfer to tertiary care center. 12/03: * Urine culture was negative * H/H 9.9 today * continue to monitor * okay to advance activity to out of bed to chair per urology * advanced diet to heart healthy (2) Paroxysmal atrial fibrillation: Code(s): I48.0 - Paroxysmal atrial fibrillation Status: Acute Assessment and Plan: Rate controlled with sotalol and on Eliquis. Also has medtronic micra pacemaker DDD (60-120 bpm) placed 09/2022 * Eliquis on hold currently given hematoma (3) Chronic kidney disease: Qualifiers: Chronic kidney disease stage: unspecified stage Qualified Code(s): N18.9 - Chronic kidney disease, unspecified Code(s): N18.9 - Chronic kidney disease, unspecified Status: Chronic Assessment and Plan: BUN and creatinine seems to range 1.4-1.9, BUN 25-30 * Cr 2.0 this morning * IVF with NS at 75 ml per hour 12/03: * Cr 2.7 today despite IV fluids * blood pressures have been stable * output documented is 150 ml with 2 occurrence * strict I&O * If cr continues to rise will need to obtain US (4) Staghorn renal calculus: Code(s): N20.0 - Calculus of kidney Status: Chronic Assessment and Plan: status post lithotripsy (5) Mitral regurgitation: Code(s): I34.0 - Nonrheumatic mitral (valve) insufficiency Status: Acute Assessment and Plan: stable Plan Feeding: Heart healthy Analgesia: Tramadol versus Dilaudid Thromboembolic prophylaxis: SCDs Lines: PIV Antibiotics: Rocephin Disposition: Monitor hemoglobin. Patient discharged home medically stable. Advance Care Plan I have confirmed that the patient's Advanced Care Plan is present, code status is documented, or surrogate decision maker is listed in patient medical record.: Yes Medication Reconciliation I have utilized all available resources to obtain, update and review the patients current medications (includes all prescriptions, OTC, herbals, cannabis, and nutritional supplements).: Yes Subjective Date/time seen: 12/04/23 07:26 Interval history: 88 year old female with a PMH of kidney stone, pulmonary embolus, atrial fibrillation on Eliquis s/p medtronic micra pacemaker, hypothyroidism, HTN, CHFpEF, depression, CKD, high cholesterol, and cerebral aneurysm who recently had a laser lithotripsy with stent exchange on 12/[address] Shaikh. She presented to the emergency room overnight with complaints of flank pain. Imaging showed a left retroperitoneal hematoma with left hydronephrotic changes and bi lateral staghorn stones. She was admitted for serial H/H and treatment for UTI with urology consult. 12/02: Patient is seen and examined today. She is resting in bed in no acute distre
--- NOTE | 2023-12-04 07:26 | PM.IMPN ---
Progress Note: A&P Assessment and Plan (1) Retroperitoneal hematoma: Code(s): K68.3 - Retroperitoneal hematoma Status: Acute Assessment and Plan: S/P lithotripsy and stent exchange now with left retroperitoneal hematoma Hemoglobin 12.0--->11.0 this morning serial H/H pain control with tramadol and Dilaudid Telemetry NPO currently 12/02: Small ecchymosis to left flank (less than a dime size) with flank tenderness. Monitor for worsening hematoma. Trend H/H Pain control Clear liquids U/A concerns for infection. Urine culture pending. Added Rocehpin. Bedrest given retroperitoneal hematoma Transfuse for hemoglobin < 7 g/dl If patient has persistent bleeding she would need transfer to tertiary care center. 12/03: Urine culture was negative H/H 9.9 today continue to monitor okay to advance activity to out of bed to chair per urology advanced diet to heart healthy (2) Paroxysmal atrial fibrillation: Code(s): I48.0 - Paroxysmal atrial fibrillation Status: Acute Assessment and Plan: Rate controlled with sotalol and on Eliquis. Also has medtronic micra pacemaker DDD (60-120 bpm) placed 09/2022 Eliquis on hold currently given hematoma (3) Chronic kidney disease: Qualifiers: Chronic kidney disease stage: unspecified stage Qualified Code(s): N18.9 - Chronic kidney disease, unspecified Code(s): N18.9 - Chronic kidney disease, unspecified Status: Chronic Assessment and Plan: BUN and creatinine seems to range 1.4-1.9, BUN 25-30 Cr 2.0 this morning IVF with NS at 75 ml per hour 12/03: Cr 2.7 today despite IV fluids blood pressures have been stable output documented is 150 ml with 2 occurrence strict I&O If cr continues to rise will need to obtain US (4) Staghorn renal calculus: Code(s): N20.0 - Calculus of kidney Status: Chronic Assessment and Plan: status post lithotripsy (5) Mitral regurgitation: Code(s): I34.0 - Nonrheumatic mitral (valve) insufficiency Status: Acute Assessment and Plan: stable Plan Feeding: Heart healthy Analgesia: Tramadol versus Dilaudid Thromboembolic prophylaxis: SCDs Lines: PIV Antibiotics: Rocephin Disposition: Monitor hemoglobin. Patient discharged home medically stable. Advance Care Plan I have confirmed that the patient's Advanced Care Plan is present, code status is documented, or surrogate decision maker is listed in patient medical record.: Yes Medication Reconciliation I have utilized all available resources to obtain, update and review the patients current medications (includes all prescriptions, OTC, herbals, cannabis, and nutritional supplements).: Yes Subjective Date/time seen: 12/04/23 07:26 Interval history: 88 year old female with a PMH of kidney stone, pulmonary embolus, atrial fibrillation on Eliquis s/p medtronic micra pacemaker, hypothyroidism, HTN, CHFpEF, depression, CKD, high cholesterol, and cerebral aneurysm who recently had a laser lithotripsy with stent exchange on 12/[address] Shaikh. She presented to the emergency room overnight with complaints of flank pain. Imaging showed a left retroperitoneal hematoma with left hydronephrotic changes and bilateral staghorn stones. She was admitted for serial H/H and treatment for UTI with urology consult. 12/02: Patient is seen and examined today. She is resting in bed in no acute distress. She reports that she had her lithotripsy procedure yesterday. At home she became dizzy when standing up from the toilet and fell down on her left knee. She could not stand back up on her own so she sat on the floor until her friend came back to check on her. She estimates she was down for a couple of hours. She did not fall striking her back. She was having severe left flank pain and nausea. She was unsure if the nausea was because of the pain or the recent anesthes
[2023-12-04] MEDS: SOTALOL HCL 80 MG TABLET PO ×2 (08:28→20:38)
[2023-12-04] MEDS: FERROUS SULFATE 325 MG TABLET DR BY MOUTH ×2 (08:28→16:09)
[2023-12-04] MEDS: buPROPion HCL SR (12 HR) 150 MG TAB PO ×2 (08:28→20:38)
[2023-12-04] MEDS: SODIUM CHLORIDE 0.9% IV 1,000 ML 75 ML IV CONT ×2 (11:06→20:35)
--- NOTE | 2023-12-04 11:45 | WPDUROPN2 ---
Progress Note: A&P Assessment and Plan (1) Retroperitoneal hematoma: Code(s): K68.3 - Retroperitoneal hematoma Status: Acute Assessment and Plan: she has been on bedrest, HGB stable at 10. Ok for OOBTC with bathroom privileges to commode. monitor serial HGB and HCT, tranfuse if symptomatic or hgb < 7. if becomes unstable or requiring multiple transfusions would transfer to higher level care facility for angio-embolization Cr up a bit to 2.7, monitor serial Cr and UOP (2) Abnormal urinalysis: Code(s): R82.90 - Unspecified abnormal findings in urine Status: Acute Assessment and Plan: culutre negative Subjective Subjective Date/Time Seen: 12/04/23 11:45 Interval history: denies significant flank pain, no nausea or vomiting, no lightheadedness, dizziness or BP issues. Review of Systems Constitutional: Constitutional: Reports as per HPI and Reports no additional constitutional complaints Eyes: Eyes: Reports as per HPI and Reports no additional eye complaints Cardiovascular: Cardiovascular: Reports no additional cardiovascular complaints Respiratory: Respiratory: Reports no additional respiratory complaints Gastrointestinal: Gastrointestinal: Reports no additional gastrointestinal complaints Genitourinary: Genitourinary: Reports no additional female genitourinary complaints and Reports as per HPI Musculoskeletal: Musculoskeletal: Reports no additional musculoskeletal complaints Integumentary/Breasts: Skin/Breast: Reports system reviewed and no additional complaints, except as docu Neurologic: Reports system reviewed and no additional complaints, except as documented Exam Const: General: cooperative, healthy appearing and comfortable HENMT: Head: normal to inspection, normocephalic and atraumatic Mouth: Yes Normal oral and palatal mucosa present Eyes: General: appearance normal, both eyes and all related structures Resp: Effort & Inspection: normal respiratory effort and able to speak in complete sentences GI: Inspection: normal to inspection and non-distended : General: Yes no CVA tenderness Objective Data Vital Signs Vital Signs: Vital Signs - 24 hr 12/03/23 12:00 12/03/23 14:00 12/03/23 16:00 Temperature 36.8 C Pulse Rate 61 61 62 Respiratory Rate 20 Blood Pressure 129/63 Pulse Oximetry 92 Oxygen Delivery Fraction of Inspired Oxygen 12/03/23 16:45 12/03/23 19:35 12/03/23 20:46 Temperature 36.6 C Pulse Rate 148 H 148 H 61 Respiratory Rate 20 16 Blood Pressure 117/45 L Pulse Oximetry 92 97 Oxygen Delivery Room Air Fraction of Inspired Oxygen 12/03/23 20:52 12/03/23 20:00 12/04/23 00:00 Temperature Pulse Rate 61 61 61 Respiratory Rate Blood Pressure Pulse Oximetry Oxygen Delivery Fraction of Inspired Oxygen 12/04/23 04:00 12/04/23 05:46 12/04/23 08:15 Temperature Pulse Rate 60 61 Respiratory Rate 16 Blood Pressure 126/60 Pulse Oximetry 92 92 Oxygen Delivery Room Air Fraction of Inspired Oxygen 21 12/04/23 08:28 12/04/23 08:00 12/04/23 08:00 Temperature Pulse Rate 61 64 Respiratory Rate Blood Pressure Pulse Oximetry Oxygen Delivery Room Air Fraction of Inspired Oxygen Intake/Output Intake/Output: Intake & Output 12/01/23 12/02/23 12/03/23 12/04/23 23:59 23:59 23:59 23:59 Intake Total 1000 1218.8 220 Output Total 150 Balance 1000 1068.8 220 Meds/Results Medications: Active Medications Generic Name Dose Route Start Last Admin Trade Name Freq PRN Reason Stop Dose Admin Bisacodyl 5 mg 12/03/23 04:35 Bisacodyl 5 Mg Tablet Ec PO QAM PRN Constipation Bupropion HCl 150 mg 12/03/23 09:00 12/04/23 08:28 Bupropion Hcl Sr (12 Hr) 150 Mg Tab PO 150 mg Q12HR RUY Administration Ferrous Sulfate 325 mg 12/03/23 09:00 12/04/23 08:28 Ferrous Sulfate [address] BY MOUTH 325 mg BID SC
[2023-12-04] MEDS: PRAVASTATIN SODIUM 20 MG TABLET 80 MG PO (20:38)
[2023-12-05] VITALS (14 sets, daily range): BP systolic 149–187; BP diastolic 83–107; PULSE 75–110; RESP 20–24; TEMP 36.1–36.8; O2SAT 90–98; BMI 23.8
--- NOTE | 2023-12-05 | ECHO_ITS ---
Patient Info Name: Nelia Peterson Age: 88 years : 1935 Gender: Female Ht: 63 in Wt: 134 lbs BSA: 1.65 m2 HR: 75 bpm BP: 149 / 87 mmHg Technical Quality: Fair Exam Date: 12/05/2023 3:22 PM Exam Location: Echo Lab Patient Status: Inpatient Admit Date: 12/05/2023 Staff Ordering Physician: Mabel Ortiz APRN Treatment Plant Operator: Earnestine Jorgensen RDCS Attending Provider: Mabel Ortiz APRN Referring Physician: Angel IBARRA; Exam Type: CA echo doppler color flow Study Info Indications R07.9 - Chest pain, unspecified Complete two-dimensional, color flow and Doppler transthoracic echocardiogram is performed. Summary 1. Left ventricular chamber dimension is normal. 2. Left ventricular systolic function is normal, estimated at 60-65%. 3. There is moderately increased left ventricular wall thickness. 4. Right ventricular systolic function is normal. 5. Left atrial chamber dimension is severely enlarged. 6. Right atrial chamber dimension is severely enlarged. 7. There is moderate aortic valve calcification. 8. There is moderate aortic valve stenosis. 9. There is mild mitral valve regurgitation. 10. There is mild tricuspid valve regurgitation. 11. Left pleural effusion noted. 12. There is small anterior pericardial effusion. Left Ventricle Left ventricular chamber dimension is normal. Left ventricular systolic function is normal, estimated at 60-65%. There is moderately increased left ventricular wall thickness. Right Ventricle Right ventricular chamber dimension is normal. Right ventricular systolic function is normal. Left Atria Left atrial chamber dimension is severely enlarged. Right Atria Right atrial chamber dimension is severely enlarged. Atrial Septum Intact interatrial septum visualized by color flow imaging. Aortic Valve The aortic valve is trileaflet. There is moderate aortic valve stenosis. There is moderate aortic valve calcification. Pulmonic Valve The pulmonic valve is not well visualized. There is trace pulmonic regurgitation. Mitral Valve There is mild mitral valve regurgitation. The mitral valve annulus is moderately calcified. Tricuspid Valve There is mild tricuspid valve regurgitation. Pericardium/Pleural Left pleural effusion noted. There is small anterior pericardial effusion. Inferior Vena Cava Normal inferior vena cava with >50% collapse upon inspiration consistent with normal right atrial pressure, 3 mmHg. Aorta The aortic root size at the sinus of Valsalva is normal. Left Ventricular Outflow Tract Name Value Normal LVOT 2D LVOT Diameter 1.9 cm LVOT Doppler LVOT Peak Gradient 2 mmHg LVOT Mean Gradient 1 mmHg LVOT VTI 14 cm LVOT VTI/AV VTI Ratio 0.3 LVOT Stroke Volume 39 ml LVOT CO 3.3 l/min LVOT CI 2.0 l/min/m2 Pulmonic Valve Name Value Normal RVOT Do
[2023-12-05] MEDS: HYDROmorphone HCL INJ (*CRX) 1 MG/ML SYR 0.5 MG IV PUSH ×2 (03:16→20:34)
--- NOTE | 2023-12-05 03:20 | ECG_ITS ---
Test Date: 2023-12-05 03:34:53 Measurements Intervals [place] Rate: 108 P: 90 [place]: 264 QRS: 94 QRSD: 166 T: -18 QT: 414 QTc: 556 Interpretive Statements ELECTRONIC VENTRICULAR PACEMAKER NO FURTHER INTERPRETATION IS POSSIBLE ATYPICAL ECG No previous ECG available for comparison Electronically Signed On 12-05-2023 06:22:25 CDT by Dylon Kumari D.O.
[2023-12-05 03:47] LABS: Basophils Percent Auto 0.3 % (0.2-1.2); Eosinophils Absolute Auto 0.2 K/mm3 (0-0.3); Eosinophils Percent Auto 3.1 % (0-4.4); Hemoglobin 9.8 g/dL (12.0-15.0); Immature Granulocyte Absolute 0.02 K/mm3 (0.00-0.031); Immature Granulocyte Percent A 0.3 % (0-0.5); Immature Platelet Fraction Pct 2.3 % (0.9-11.2); Lymphocytes Percent Auto 14.6 % (18.3-44.2); Mean Corpuscular HGB Conc 31.6 g/dl (32-36); Mean Corpuscular Hemoglobin 30.4 pg (26-34); Mean Corpuscular Volume 96.3 fl (80-100); Mean Platelet Volume 10.4 fl (7.4-10.4); Monocytes Absolute Auto 0.6 K/mm3 (0.1-0.6); Monocytes Percent Auto 9.7 % (2.6-8.5); Neutrophils Absolute Auto 4.4 K/mm3 (1.3-6.7); Platelet Count Result 103 k/mm3 (150-375); Red Blood Count 3.22 M/mm3 (4.2-5.4); Red Cell Distribution Width 14.1 % (11.5-14.5); White Blood Count 6.2 K/mm3 (4.5-10.0)
[2023-12-05 03:56] LABS: Alkaline Phosphatase 66 U/L (38-126); Anion Gap 9 mmol/L (4-12); Aspartate Amino Transferase 14 U/L (14-36); Bilirubin,Total 0.5 mg/dL (0.2-1.3); Blood Urea Nitrogen 43 mg/dL (7-17); Calcium 8.5 mg/dL (8.4-10.2); Carbon Dioxide 16 mmol/L (22-30); Chloride 109 mmol/L (98-107); Estimated CRCL calculation 13 ml/min; Estimated Glomerular Filt Rate 20; Glucose 82 mg/dL (65-110); Magnesium 1.9 mg/dL (1.6-2.3); Potassium 4.1 mmol/L (3.4-5.0); Sodium 134 mmol/L (137-145)
[2023-12-05 04:09] LABS: Glucose Point of Care 90 mg/dl (65-105)
[2023-12-05 04:15] LABS: Troponin I 0.035 ng/mL (0.000-0.034)
--- NOTE | 2023-12-05 04:50 | PC.NURSE ---
This patient, Nelia Peterson, was received from [[id number] ] on 12/05/23 at 0519. Patient/family oriented to unit policies and routines
[2023-12-05 04:56] LABS: Alanine Aminotransferase < 6 U/L (6-35)
--- NOTE | 2023-12-05 05:17 | PC.NURSE ---
This patient, Nelia Peterson, was received from [[id number] ] on 12/05/23 at 0517. Patient/family oriented to unit policies and routines.
[2023-12-05] MEDS: LEVOTHYROXINE SODIUM 50 MCG TABLET PO (06:09)
[2023-12-05] MEDS: SODIUM CHLORIDE 0.9% IV 1,000 ML 75 ML IV CONT (07:35)
--- NOTE | 2023-12-05 07:51 | WPDUROPN2 ---
Progress Note: A&P Assessment and Plan (1) Retroperitoneal hematoma: Code(s): K68.3 - Retroperitoneal hematoma Status: Acute Assessment and Plan: Comfortable, hemodynamically stable. Increase activity today. Anticipate discharge tomorrow. Subjective Subjective Date/Time Seen: 12/05/23 07:51 Interval history: Comfortable, H/H stable Review of Systems Cardiovascular: Cardiovascular: Denies chest pain, Denies lightheadedness, Denies palpitations and Denies dyspnea Respiratory: Respiratory: Denies dyspnea Gastrointestinal: Gastrointestinal: Denies diarrhea, Denies nausea and Denies vomiting Genitourinary: Genitourinary: Denies hematuria and Denies dysuria Endocrine: Endocrine: Denies palpitations Exam Const: General: no acute distress Resp: Effort & Inspection: normal respiratory effort GI: Inspection: non-distended GI Palp: No abdominal tenderness and No Guarding due to palpation present (GI) Auscultation: normal bowel sounds Objective Data Vital Signs Vital Signs: Vital Signs - 24 hr 12/04/23 08:15 12/04/23 08:28 12/04/23 08:00 Temperature Pulse Rate 61 Respiratory Rate Blood Pressure Pulse Oximetry 92 Oxygen Delivery Room Air Room Air Fraction of Inspired Oxygen 21 12/04/23 08:00 12/04/23 12:00 12/04/23 14:00 Temperature 97.7 F Pulse Rate 64 64 58 L Respiratory Rate 16 Blood Pressure 126/66 Pulse Oximetry 94 Oxygen Delivery Fraction of Inspired Oxygen 12/04/23 16:00 12/04/23 20:38 12/04/23 21:05 Temperature 98.6 F Pulse Rate 62 114 H 63 Respiratory Rate 18 Blood Pressure 144/65 H Pulse Oximetry 98 Oxygen Delivery Fraction of Inspired Oxygen 12/04/23 20:35 12/04/23 20:35 12/05/23 00:00 Temperature Pulse Rate 60 110 H Respiratory Rate Blood Pressure Pulse Oximetry Oxygen Delivery Room Air Fraction of Inspired Oxygen 12/05/23 05:07 12/05/23 04:50 12/05/23 04:50 Temperature 98.2 F Pulse Rate 108 H 109 H Respiratory Rate 20 Blood Pressure 159/83 H Pulse Oximetry 96 Oxygen Delivery Room Air Room Air Fraction of Inspired Oxygen 12/05/23 06:00 Temperature Pulse Rate 106 H Respiratory Rate Blood Pressure Pulse Oximetry Oxygen Delivery Fraction of Inspired Oxygen Intake/Output Intake/Output: Intake & Output 12/02/23 12/03/23 12/04/23 12/05/23 23:59 23:59 23:59 23:59 Intake Total 1000 1218.8 1700 825 Output Total 150 800 Balance 1000 1068.8 1700 25 Meds/Results Medications: Active Medications Generic Name Dose Route Start Last Admin Trade Name Freq PRN Reason Stop Dose Admin Bisacodyl 5 mg 12/03/23 04:35 Bisacodyl 5 Mg Tablet Ec PO QAM PRN Constipation Bupropion HCl 150 mg 12/03/23 09:00 12/04/23 20:38 Bupropion Hcl Sr (12 Hr) 150 Mg Tab PO 150 mg Q12HR RUY Administration Ferrous Sulfate 325 mg 12/03/23 09:00 12/04/23 16:09 Ferrous Sulfate [address] BY MOUTH 325 mg BID RUY Administration Hydromorphone HCl 0.5 mg 12/03/23 01:12 12/05/23 03:16 Hydromorphone Hcl Inj (*Crx) 1 Mg/Ml Syr IV PUSH 0.5 mg Q4H PRN Administration Pain Rated 7-10 Sodium Chloride 1,000 mls @ 75 mls/hr 12/04/23 10:55 12/05/23 07:35 Normal Saline Iv IV CONT 75 mls/hr .[id number] RUY Administration Levothyroxine Sodium 50 mcg 12/03/23 06:30 12/05/23 06:09 Levothyroxine Sodium 50 Mcg Tablet PO 50 mcg DAILY@0630 RUY Administration Ondansetron HCl 4 mg 12/03/23 01:12 12/03/23 10:32 Ondansetron Inj 4 Mg/2 Ml Vial IV PUSH 4 mg Q4H PRN Administration Nausea Pravastatin Sodium 80 mg 12/03/23 21:00 12/04/23 20:38 Pravastatin Sodium 20 Mg Tablet PO 80 mg HS RUY Administration Sotalol HCl 80 mg 12/03/23 09:00 12/04/23 20:38 Sotalol Hcl 80 Mg Tablet PO 80 mg Q12HR RUY Administration Tramadol HCl 50 mg 12/03/23 04:35 12/03/23 20:50 Tramadol Hcl (*
[2023-12-05 09:24] LABS: Troponin I 0.063 ng/mL (0.000-0.034)
[2023-12-05] MEDS: SOTALOL HCL 80 MG TABLET PO ×2 (09:33→20:35)
[2023-12-05] MEDS: FERROUS SULFATE 325 MG TABLET DR BY MOUTH ×2 (09:33→17:16)
[2023-12-05] MEDS: buPROPion HCL SR (12 HR) 150 MG TAB PO ×2 (09:33→20:35)
--- NOTE | 2023-12-05 09:42 | ECG_ITS ---
Test Date: 2023-12-05 11:06:28 Measurements Intervals [place] Rate: 107 P: 0 [place]: 0 QRS: 109 QRSD: 150 T: -12 QT: 396 QTc: 530 Interpretive Statements ELECTRONIC VENTRICULAR PACEMAKER UNDERLYING ATRIAL FLUTTER/TACHYCARDIA NO FURTHER INTERPRETATION IS POSSIBLE ABNORMAL ECG Compared to ECG 12/05/2023 03:34:53 No significant changes Electronically Signed On 12-05-2023 11:35:57 CDT by Dylon Kumari D.O.
--- NOTE | 2023-12-05 09:52 | P.PNIM_ITS ---
Progress Note: A&P Assessment and Plan (1) Retroperitoneal hematoma: Code(s): K68.3 - Retroperitoneal hematoma Status: Acute Assessment and Plan: S/P lithotripsy and stent exchange now with left retroperitoneal hematoma * Hemoglobin 12.0--->11.0 this morning * serial H/H * pain control with tramadol and Dilaudid * Telemetry * NPO currently 12/02: Small ecchymosis to left flank (less than a dime size) with flank tenderness. * Monitor for worsening hematoma. * Trend H/H * Pain control * Clear liquids * U/A concerns for infection. Urine culture pending. Added Rocephin. * Bedrest given retroperitoneal hematoma * Transfuse for hemoglobin < 7 g/dl * If patient has persistent bleeding she would need transfer to tertiary care center. 12/03: * Urine culture was negative * H/H 9.9 today * continue to monitor * okay to advance activity to out of bed to chair per urology * advanced diet to heart healthy 12/04: * H/H stable * Up as tolerated with assistance (2) Paroxysmal atrial fibrillation: Code(s): I48.0 - Paroxysmal atrial fibrillation Status: Acute Assessment and Plan: Rate controlled with sotalol and on Eliquis. Also has Medtronic micra pacemaker DDD (60-120 bpm) placed 09/2022 * Eliquis on hold currently given hematoma (3) Chronic kidney disease: Qualifiers: Chronic kidney disease stage: unspecified stage Qualified Code(s): N18.9 - Chronic kidney disease, unspecified Code(s): N18.9 - Chronic kidney disease, unspecified Status: Chronic Assessment and Plan: BUN and creatinine seems to range 1.4-1.9, BUN 25-30 * Cr 2.0 this morning * IVF with NS at 75 ml per hour 12/03: * Cr 2.7 today despite IV fluids * blood pressures have been stable * output documented is 150 ml with 2 occurrence * strict I&O * If cr continues to rise will need to obtain US 12/04: * Cr improved with IVF * Cr 2.7-->2.30 (4) Staghorn renal calculus: Code(s): 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 Pain is reproducible. * EKG shows atrial flutter, rate controlled with ventricular pacemaker * Troponin was elevated, suspected demand from HTN Plan Feeding: Heart healthy Analgesia: Tramadol versus Dilaudid Thromboembolic prophylaxis: SCDs Lines: PIV Antibiotics: Rocephin Disposition: Monitor hemoglobin. Patient discharged home medically stable. Advance Care Plan I have confirmed that the patient's Advanced Care Plan is present, code status is documented, or surrogate decision maker is listed in patient medical record.: Yes Medication Reconciliation I have utilized all available resources to obtain, update and review the patients current medications (includes all prescriptions, OTC, herbals, cannabis, and nutritional supplements).: Yes Subjective Date/time seen: 12/05/23 09:52 Interval history: 88 year old female with a PMH of kidney stone, pulmonary embolus, atrial fibrillation on Eliquis s/p medtronic micra pacemaker, hypothyroidism, HTN, CHFpEF, depression, CKD, high cholesterol, and cerebral aneurysm who recently had a laser lithotripsy with stent exchange on 12/[address] Shaikh. She pres
--- NOTE | 2023-12-05 09:52 | PM.IMPN ---
Progress Note: A&P Assessment and Plan (1) Retroperitoneal hematoma: Code(s): K68.3 - Retroperitoneal hematoma Status: Acute Assessment and Plan: S/P lithotripsy and stent exchange now with left retroperitoneal hematoma Hemoglobin 12.0--->11.0 this morning serial H/H pain control with tramadol and Dilaudid Telemetry NPO currently 12/02: Small ecchymosis to left flank (less than a dime size) with flank tenderness. Monitor for worsening hematoma. Trend H/H Pain control Clear liquids U/A concerns for infection. Urine culture pending. Added Rocephin. Bedrest given retroperitoneal hematoma Transfuse for hemoglobin < 7 g/dl If patient has persistent bleeding she would need transfer to tertiary care center. 12/03: Urine culture was negative H/H 9.9 today continue to monitor okay to advance activity to out of bed to chair per urology advanced diet to heart healthy 12/04: H/H stable Up as tolerated with assistance (2) Paroxysmal atrial fibrillation: Code(s): I48.0 - Paroxysmal atrial fibrillation Status: Acute Assessment and Plan: Rate controlled with sotalol and on Eliquis. Also has Medtronic micra pacemaker DDD (60-120 bpm) placed 09/2022 Eliquis on hold currently given hematoma (3) Chronic kidney disease: Qualifiers: Chronic kidney disease stage: unspecified stage Qualified Code(s): N18.9 - Chronic kidney disease, unspecified Code(s): N18.9 - Chronic kidney disease, unspecified Status: Chronic Assessment and Plan: BUN and creatinine seems to range 1.4-1.9, BUN 25-30 Cr 2.0 this morning IVF with NS at 75 ml per hour 12/03: Cr 2.7 today despite IV fluids blood pressures have been stable output documented is 150 ml with 2 occurrence strict I&O If cr continues to rise will need to obtain US 12/04: Cr improved with IVF Cr 2.7-->2.30 (4) Staghorn renal calculus: Code(s): 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 Pain is reproducible. EKG shows atrial flutter, rate controlled with ventricular pacemaker Troponin was elevated, suspected demand from HTN Plan Feeding: Heart healthy Analgesia: Tramadol versus Dilaudid Thromboembolic prophylaxis: SCDs Lines: PIV Antibiotics: Rocephin Disposition: Monitor hemoglobin. Patient discharged home medically stable. Advance Care Plan I have confirmed that the patient's Advanced Care Plan is present, code status is documented, or surrogate decision maker is listed in patient medical record.: Yes Medication Reconciliation I have utilized all available resources to obtain, update and review the patients current medications (includes all prescriptions, OTC, herbals, cannabis, and nutritional supplements).: Yes Subjective Date/time seen: 12/05/23 09:52 Interval history: 88 year old female with a PMH of kidney stone, pulmonary embolus, atrial fibrillation on Eliquis s/p medtronic micra pacemaker, hypothyroidism, HTN, CHFpEF, depression, CKD, high cholesterol, and cerebral aneurysm who recently had a laser lithotripsy with stent exchange on 12/[address] Shaikh. She presented to the emergency room overnight with complaints of flank pain. Imaging showed a left retroperitoneal hematoma with left hydronephrotic changes and bilateral staghorn stones. She was admitted for serial H/H and treatment for UTI with urology consult. 12/02: Patient is seen and examined today. She is resting in bed in no acute distress. She reports that she had her lithotripsy procedure yesterday. At home she became dizzy when standing up from the toilet and fell down on her left knee. She could not
[2023-12-05] MEDS: HYDROcodone/acetaminophen (*CRX) 5-325 MG TABLET 1 TAB PO (10:46)
[2023-12-05] MEDS: PRAVASTATIN SODIUM 20 MG TABLET 80 MG PO (20:35)
[2023-12-05 23:08] LABS: Troponin I 0.048 ng/mL (0.000-0.034)
[2023-12-06] VITALS (15 sets, daily range): BP systolic 113–181; BP diastolic 76–96; PULSE 80–111; RESP 16–20; TEMP 36.2–36.8; O2SAT 95–98
[2023-12-06] MEDS: HYDROmorphone HCL INJ (*CRX) 1 MG/ML SYR 0.5 MG IV PUSH (00:55)
[2023-12-06 04:25] LABS: Basophils Percent Auto 0.4 % (0.2-1.2); Eosinophils Absolute Auto 0.1 K/mm3 (0-0.3); Hematocrit 33.7 % (37.0-47.0); Immature Granulocyte Absolute 0.02 K/mm3 (0.00-0.031); Immature Granulocyte Percent A 0.2 % (0-0.5); Lymphocytes Absolute Auto 1.05 K/mm3 (0.9-3.2); Lymphocytes Percent Auto 12.8 % (18.3-44.2); Mean Corpuscular HGB Conc 32.6 g/dl (32-36); Mean Corpuscular Hemoglobin 30.4 pg (26-34); Mean Corpuscular Volume 93.1 fl (80-100); Mean Platelet Volume 10.4 fl (7.4-10.4); Monocytes Absolute Auto 0.8 K/mm3 (0.1-0.6); Monocytes Percent Auto 10.2 % (2.6-8.5); Neutrophils Absolute Auto 6.2 K/mm3 (1.3-6.7); Neutrophils Percent Auto 75.4 % (45.5-73.1); Platelet Count Result 116 k/mm3 (150-375); Red Blood Count 3.62 M/mm3 (4.2-5.4); Red Cell Distribution Width 13.7 % (11.5-14.5); White Blood Count 8.2 K/mm3 (4.5-10.0)
--- NOTE | 2023-12-06 04:30 | PC.NURSE ---
Call placed to Dr. Fuentes r/t to patient's high BPs and heart rates. with order for a one time dose of hydralazine 5mg.
[2023-12-06 04:39] LABS: Albumin Level 3.1 g/dL (3.5-5.1); Alkaline Phosphatase 69 U/L (38-126); Anion Gap 9 mmol/L (4-12); Aspartate Amino Transferase 14 U/L (14-36); Bilirubin,Total 0.7 mg/dL (0.2-1.3); Blood Urea Nitrogen 37 mg/dL (7-17); Calcium 8.5 mg/dL (8.4-10.2); Carbon Dioxide 18 mmol/L (22-30); Chloride 108 mmol/L (98-107); Estimated CRCL calculation 17 ml/min; Estimated Glomerular Filt Rate 27; Glucose 90 mg/dL (65-110); Magnesium 1.8 mg/dL (1.6-2.3); Potassium 4.2 mmol/L (3.4-5.0); Sodium 135 mmol/L (137-145)
[2023-12-06] MEDS: hydrALAZINE HCL 20 MG/ML VIAL 5 MG IV PUSH (04:51)
[2023-12-06 05:16] LABS: Alanine Aminotransferase < 6 U/L (6-35)
[2023-12-06] MEDS: LEVOTHYROXINE SODIUM 50 MCG TABLET PO (05:56)
[2023-12-06] MEDS: SOTALOL HCL 80 MG TABLET PO ×2 (08:12→20:53)
[2023-12-06] MEDS: FERROUS SULFATE 325 MG TABLET DR BY MOUTH ×2 (08:12→17:27)
[2023-12-06] MEDS: buPROPion HCL SR (12 HR) 150 MG TAB PO ×2 (08:12→20:54)
--- NOTE | 2023-12-06 09:37 | P.DS_ITS ---
DS: Admitting Diagnosis Discharge Date 12/05 Admitting Diagnosis fall, abdominal pain DS: Discharge Diagnosis Discharge Diagnosis (1) Retroperitoneal hematoma: Code(s): K68.3 - Retroperitoneal hematoma Status: Acute Assessment and Plan: S/P lithotripsy and stent exchange now with left retroperitoneal hematoma * Hemoglobin 12.0--->11.0 this morning * serial H/H * pain control with tramadol and Dilaudid * Telemetry * NPO currently 12/02: Small ecchymosis to left flank (less than a dime size) with flank tenderness. * Monitor for worsening hematoma. * Trend H/H * Pain control * Clear liquids * U/A concerns for infection. Urine culture pending. Added Rocephin. * Bedrest given retroperitoneal hematoma * Transfuse for hemoglobin < 7 g/dl * If patient has persistent bleeding she would need transfer to tertiary care center. 12/03: * Urine culture was negative * H/H 9.9 today * continue to monitor * okay to advance activity to out of bed to chair per urology * advanced diet to heart healthy 12/04: * H/H stable * Up as tolerated with assistance (2) Paroxysmal atrial fibrillation: Code(s): I48.0 - Paroxysmal atrial fibrillation Status: Acute Assessment and Plan: Rate controlled with sotalol and on Eliquis. Also has Medtronic micra pacemaker DDD (60-120 bpm) placed 09/2022 * Eliquis on hold currently given hematoma (3) Chronic kidney disease: Qualifiers: Chronic kidney disease stage: unspecified stage Qualified Code(s): N18.9 - Chronic kidney disease, unspecified Code(s): N18.9 - Chronic kidney disease, unspecified Status: Chronic Assessment and Plan: BUN and creatinine seems to range 1.4-1.9, BUN 25-30 * Cr 2.0 this morning * IVF with NS at 75 ml per hour 12/03: * Cr 2.7 today despite IV fluids * blood pressures have been stable * output documented is 150 ml with 2 occurrence * strict I&O * If cr continues to rise will need to obtain US 12/04: * Cr improved with IVF * Cr 2.7-->2.30 (4) Staghorn renal calculus: Code(s): 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 Pain is reproducible. * EKG shows atrial flutter, rate controlled with ventricular pacemaker * Troponin was elevated, suspected demand from HTN Plan Feeding: Heart healthy Analgesia: Tramadol versus Dilaudid Thromboembolic prophylaxis: SCDs Lines: PIV Antibiotics: Rocephin Disposition: Monitor hemoglobin. Patient discharged home medically stable. Advance Care Plan I have confirmed that the patient's Advanced Care Plan is present, code status is documented, or surrogate decision maker is listed in patient medical record.: Yes Medication Reconciliation I have utilized all available resources to obtain, update and review the patients current medications (includes all prescriptions, OTC, herbals, cannabis, and nutritional supplements).: Yes DS: Summary Hospital Course Hospital Course: 88-year-old female with a PMH of kidney stone, pulmonary embolus, atrial fibrillation on Eliquis s/p medtronic micra pacemaker, hypothyroidism, HTN, CHFpEF, depression, CKD, high cholesterol, and cerebral aneurys
--- NOTE | 2023-12-06 09:37 | PM.DS ---
DS: Admitting Diagnosis Discharge Date 12/05 Admitting Diagnosis fall, abdominal pain DS: Discharge Diagnosis Discharge Diagnosis (1) Retroperitoneal hematoma: Code(s): K68.3 - Retroperitoneal hematoma Status: Acute Assessment and Plan: S/P lithotripsy and stent exchange now with left retroperitoneal hematoma Hemoglobin 12.0--->11.0 this morning serial H/H pain control with tramadol and Dilaudid Telemetry NPO currently 12/02: Small ecchymosis to left flank (less than a dime size) with flank tenderness. Monitor for worsening hematoma. Trend H/H Pain control Clear liquids U/A concerns for infection. Urine culture pending. Added Rocephin. Bedrest given retroperitoneal hematoma Transfuse for hemoglobin < 7 g/dl If patient has persistent bleeding she would need transfer to tertiary care center. 12/03: Urine culture was negative H/H 9.9 today continue to monitor okay to advance activity to out of bed to chair per urology advanced diet to heart healthy 12/04: H/H stable Up as tolerated with assistance (2) Paroxysmal atrial fibrillation: Code(s): I48.0 - Paroxysmal atrial fibrillation Status: Acute Assessment and Plan: Rate controlled with sotalol and on Eliquis. Also has Medtronic micra pacemaker DDD (60-120 bpm) placed 09/2022 Eliquis on hold currently given hematoma (3) Chronic kidney disease: Qualifiers: Chronic kidney disease stage: unspecified stage Qualified Code(s): N18.9 - Chronic kidney disease, unspecified Code(s): N18.9 - Chronic kidney disease, unspecified Status: Chronic Assessment and Plan: BUN and creatinine seems to range 1.4-1.9, BUN 25-30 Cr 2.0 this morning IVF with NS at 75 ml per hour 12/03: Cr 2.7 today despite IV fluids blood pressures have been stable output documented is 150 ml with 2 occurrence strict I&O If cr continues to rise will need to obtain US 12/04: Cr improved with IVF Cr 2.7-->2.30 (4) Staghorn renal calculus: Code(s): 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 Pain is reproducible. EKG shows atrial flutter, rate controlled with ventricular pacemaker Troponin was elevated, suspected demand from HTN Plan Feeding: Heart healthy Analgesia: Tramadol versus Dilaudid Thromboembolic prophylaxis: SCDs Lines: PIV Antibiotics: Rocephin Disposition: Monitor hemoglobin. Patient discharged home medically stable. Advance Care Plan I have confirmed that the patient's Advanced Care Plan is present, code status is documented, or surrogate decision maker is listed in patient medical record.: Yes Medication Reconciliation I have utilized all available resources to obtain, update and review the patients current medications (includes all prescriptions, OTC, herbals, cannabis, and nutritional supplements).: Yes DS: Summary Hospital Course Hospital Course: 88-year-old female with a PMH of kidney stone, pulmonary embolus, atrial fibrillation on Eliquis s/p medtronic micra pacemaker, hypothyroidism, HTN, CHFpEF, depression, CKD, high cholesterol, and cerebral aneurysm who recently had a laser lithotripsy with stent exchange on 12/[address] Shaikh. She presented to the emergency room overnight with complaints of flank pain. Imaging showed a left retroperitoneal hematoma with left hydronephrotic changes and bilateral staghorn stones. Cr was elevated for which she received IVF. She was admitted for serial H/H and treatment for UTI with urology consult. Anticoagulation was held and her hemoglobin stabilized and began up trending. Patient did not require blood transfusion. During
--- NOTE | 2023-12-06 09:50 | WPDUROPN2 ---
Progress Note: A&P Assessment and Plan (1) Retroperitoneal hematoma: Code(s): K68.3 - Retroperitoneal hematoma Status: Acute Assessment and Plan: Comfortable, hemodynamically stable. Plan to resume Erma 12/12/23 Okay for discharge from urologic standpoint Subjective Subjective Date/Time Seen: 12/06/23 09:50 Interval history: Nelia is doing well today. She complains of some left-sided back pain but overall feels much improved. Denies nausea, vomiting, fever, chills. Review of Systems Review of Systems: All systems reviewed & are unremarkable except as noted in HPI and below Exam Narrative: General: Awake, alert, comfortable, no acute distress HEENT: Normocephalic, atraumatic, sclerae anicteric Respiratory: Normal respiratory effort, no accessory muscle use Abdomen: Nondistended, soft, nontender Skin: Normal coloration, warm and dry Neurologic: No focal neuro deficits noted Psychiatric: Appropriate mood and affect, judgment and insight intact Objective Data Vital Signs Vital Signs: Vital Signs - 24 hr 12/05/23 12:00 12/05/23 10:00 12/05/23 12:00 Temperature Pulse Rate 88 99 Respiratory Rate Blood Pressure Pulse Oximetry 90 Oxygen Delivery Room Air 12/05/23 14:00 12/05/23 12:00 12/05/23 16:00 Temperature 97.2 F L 97.5 F L Pulse Rate 99 84 78 Respiratory Rate 24 H 20 Blood Pressure 154/88 H 187/90 H Pulse Oximetry 98 96 Oxygen Delivery 12/05/23 16:00 12/05/23 16:00 12/05/23 18:00 Temperature Pulse Rate 80 88 Respiratory Rate Blood Pressure Pulse Oximetry Oxygen Delivery Room Air 12/05/23 20:13 12/05/23 20:35 12/05/23 20:00 Temperature 97.5 F L Pulse Rate 98 100 Respiratory Rate 20 Blood Pressure 171/107 H Pulse Oximetry 96 Oxygen Delivery Room Air 12/05/23 20:00 12/05/23 22:00 12/06/23 00:03 Temperature 97.5 F L Pulse Rate 99 109 H 108 H Respiratory Rate 20 Blood Pressure 146/90 H Pulse Oximetry 96 Oxygen Delivery 12/06/23 00:00 12/06/23 00:00 12/06/23 02:00 Temperature Pulse Rate 111 H 102 H Respiratory Rate Blood Pressure Pulse Oximetry Oxygen Delivery Room Air 12/06/23 04:00 12/06/23 04:58 12/06/23 04:00 Temperature 97.5 F L Pulse Rate 101 H 107 H Respiratory Rate 18 Blood Pressure 181/96 H Pulse Oximetry 96 Oxygen Delivery Room Air 12/06/23 06:00 12/06/23 07:24 Temperature 97.1 F L Pulse Rate 107 H 109 H Respiratory Rate 16 Blood Pressure 163/83 H Pulse Oximetry 95 Oxygen Delivery Intake/Output Intake/Output: Intake & Output 12/03/23 12/04/23 12/05/23 12/06/23 23:59 23:59 23:59 23:59 Intake Total 1218.8 1700 1975 640 Output Total 046 887 2011 Balance 1068.8 1700 1175 -585 Meds/Results Medications: Active Medications Generic Name Dose Route Start Last Admin Trade Name Freq PRN Reason Stop Dose Admin Hydrocodone Bitart/Acetaminophen 1 tab 12/05/23 10:10 12/05/23 10:46 Hydrocodone/Acetaminophen (*Crx) 5-325 Mg Tablet PO 1 tab Q4H PRN Administration Pain Rated 4-6 Bisacodyl 5 mg 12/03/23 04:35 Bisacodyl 5 Mg Tablet Ec PO QAM PRN Constipation Bupropion HCl 150 mg 12/03/23 09:00 12/06/23 08:12 Bupropion Hcl Sr (12 Hr) 150 Mg Tab PO 150 mg Q12HR RUY Administration Ferrous Sulfate 325 mg 12/03/23 09:00 12/06/23 08:12 Ferrous Sulfate [address] BY MOUTH 325 mg BID RUY Administration Hydromorphone HCl 0.5 mg 12/03/23 01:12 12/06/23 00:55 Hydromorphone Hcl Inj (*Crx) 1 Mg/Ml Syr IV PUSH 0.5 mg Q4H PRN Administration Pain Rated 7-10 Levothyroxine Sodium 50 mcg 12/03/23 06:30 12/06/23 05:56 Levothyroxine Sodium 50 Mcg Tablet PO 50 mcg DAILY@0630 RUY Administration Ondansetron HCl 4 mg 12/03/23 01:12 12/03/23 10:32 Ondansetron Inj 4 Mg/2 Ml Vial IV PUSH 4 mg Q4H PRN Administration Nausea Perflutren Li
[2023-12-06] MEDS: HYDROcodone/acetaminophen (*CRX) 5-325 MG TABLET 1 TAB PO ×2 (11:04→20:53)
--- NOTE | 2023-12-06 12:36 | PCDIET ---
Pt does not want the Ensure compacts, will discontinue. Pt states she does not wany any kind of supplements. However, will offer nutrition ice cream cups daily for an additional 300kcals, 9g protein per day.
[2023-12-06] MEDS: ACETAMINOPHEN 325 MG TABLET 650 MG PO ×2 (13:28→17:26)
--- NOTE | 2023-12-06 13:45 | P.PNIM_ITS ---
Progress Note: A&P Assessment and Plan (1) Retroperitoneal hematoma: Code(s): K68.3 - Retroperitoneal hematoma Status: Acute Assessment and Plan: S/P lithotripsy and stent exchange now with left retroperitoneal hematoma * Hemoglobin 12.0--->11.0 this morning * serial H/H * pain control with tramadol and Dilaudid * Telemetry * NPO currently 12/02: Small ecchymosis to left flank (less than a dime size) with flank tenderness. * Monitor for worsening hematoma. * Trend H/H * Pain control * Clear liquids * U/A concerns for infection. Urine culture pending. Added Rocephin. * Bedrest given retroperitoneal hematoma * Transfuse for hemoglobin < 7 g/dl * If patient has persistent bleeding she would need transfer to tertiary care center. 12/03: * Urine culture was negative * H/H 9.9 today * continue to monitor * okay to advance activity to out of bed to chair per urology * advanced diet to heart healthy 12/04: * H/H stable * Up as tolerated with assistance 12/05: * PT OT consulted * Hemoglobin 11.0 today * Okay to restart Eliquis (2) Paroxysmal atrial fibrillation: Code(s): I48.0 - Paroxysmal atrial fibrillation Status: Acute Assessment and Plan: Rate controlled with sotalol and on Eliquis. Also has Medtronic micra pacemaker DDD (60-120 bpm) placed 09/2022 * Eliquis on hold currently given hematoma (3) Chronic kidney disease: Qualifiers: Chronic kidney disease stage: unspecified stage Qualified Code(s): N18.9 - Chronic kidney disease, unspecified Code(s): N18.9 - Chronic kidney disease, unspecified Status: Chronic Assessment and Plan: BUN and creatinine seems to range 1.4-1.9, BUN 25-30 * Cr 2.0 this morning * IVF with NS at 75 ml per hour 12/03: * Cr 2.7 today despite IV fluids * blood pressures have been stable * output documented is 150 ml with 2 occurrence * strict I&O * If cr continues to rise will need to obtain US 12/04: * Cr improved with IVF * Cr 2.7-->2.30 12/05 * Creatinine 1.8 * DC IV fluids as she is taking good p.o. (4) Staghorn renal calculus: Code(s): 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 Pain is reproducible. * EKG shows atrial flutter, rate controlled with ventricular pacemaker * Troponin was elevated, suspected demand from HTN Plan Feeding: Heart healthy Analgesia: Tramadol versus Dilaudid Thromboembolic prophylaxis: SCDs Lines: PIV Antibiotics: Rocephin Disposition: PT OT consult for possible SNF Advance Care Plan I have confirmed that the patient's Advanced Care Plan is present, code status is documented, or surrogate decision maker is listed in patient medical record.: Yes Medication Reconciliation I have utilized all available resources to obtain, update and review the patients current medications (includes all prescriptions, OTC, herbals, cannabis, and nutritional supplements).: Yes Subjective Date/time seen: 12/06/23 13:45 Interval history: 88 year old female with a PMH of kidney stone, pulmonary embolus, atrial fibrillation on Eliquis s/p medtronic micra pacemaker, hypothyroidism, HTN, CHFpEF, depr
--- NOTE | 2023-12-06 13:45 | PM.IMPN ---
Progress Note: A&P Assessment and Plan (1) Retroperitoneal hematoma: Code(s): K68.3 - Retroperitoneal hematoma Status: Acute Assessment and Plan: S/P lithotripsy and stent exchange now with left retroperitoneal hematoma Hemoglobin 12.0--->11.0 this morning serial H/H pain control with tramadol and Dilaudid Telemetry NPO currently 12/02: Small ecchymosis to left flank (less than a dime size) with flank tenderness. Monitor for worsening hematoma. Trend H/H Pain control Clear liquids U/A concerns for infection. Urine culture pending. Added Rocephin. Bedrest given retroperitoneal hematoma Transfuse for hemoglobin < 7 g/dl If patient has persistent bleeding she would need transfer to tertiary care center. 12/03: Urine culture was negative H/H 9.9 today continue to monitor okay to advance activity to out of bed to chair per urology advanced diet to heart healthy 12/04: H/H stable Up as tolerated with assistance 12/05: PT OT consulted Hemoglobin 11.0 today Okay to restart Eliquis (2) Paroxysmal atrial fibrillation: Code(s): I48.0 - Paroxysmal atrial fibrillation Status: Acute Assessment and Plan: Rate controlled with sotalol and on Eliquis. Also has Medtronic micra pacemaker DDD (60-120 bpm) placed 09/2022 Eliquis on hold currently given hematoma (3) Chronic kidney disease: Qualifiers: Chronic kidney disease stage: unspecified stage Qualified Code(s): N18.9 - Chronic kidney disease, unspecified Code(s): N18.9 - Chronic kidney disease, unspecified Status: Chronic Assessment and Plan: BUN and creatinine seems to range 1.4-1.9, BUN 25-30 Cr 2.0 this morning IVF with NS at 75 ml per hour 12/03: Cr 2.7 today despite IV fluids blood pressures have been stable output documented is 150 ml with 2 occurrence strict I&O If cr continues to rise will need to obtain US 12/04: Cr improved with IVF Cr 2.7-->2.30 12/05 Creatinine 1.8 DC IV fluids as she is taking good p.o. (4) Staghorn renal calculus: Code(s): 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 Pain is reproducible. EKG shows atrial flutter, rate controlled with ventricular pacemaker Troponin was elevated, suspected demand from HTN Plan Feeding: Heart healthy Analgesia: Tramadol versus Dilaudid Thromboembolic prophylaxis: SCDs Lines: PIV Antibiotics: Rocephin Disposition: PT OT consult for possible SNF Advance Care Plan I have confirmed that the patient's Advanced Care Plan is present, code status is documented, or surrogate decision maker is listed in patient medical record.: Yes Medication Reconciliation I have utilized all available resources to obtain, update and review the patients current medications (includes all prescriptions, OTC, herbals, cannabis, and nutritional supplements).: Yes Subjective Date/time seen: 12/06/23 13:45 Interval history: 88 year old female with a PMH of kidney stone, pulmonary embolus, atrial fibrillation on Eliquis s/p medtronic micra pacemaker, hypothyroidism, HTN, CHFpEF, depression, CKD, high cholesterol, and cerebral aneurysm who recently had a laser lithotripsy with stent exchange on 12/[address] Shaikh. She presented to the emergency room overnight with complaints of flank pain. Imaging showed a left retroperitoneal hematoma with left hydronephrotic changes and bilateral staghorn stones. She was admitted for serial H/H and treatment for UTI with urology consult. 12/02: Patient is seen and examined today. She is resting in bed in no acute distress. She reports that she had her lithotripsy procedure yester
--- NOTE | 2023-12-06 17:45 | PC.NURSE ---
This patient, Nelia Peterson, was received from [facility] on 12/06/23 at 1745. Patient/family oriented to unit policies and routines
--- NOTE | 2023-12-06 18:14 | PC.NURSE ---
This patient, Nelia Peterson, was transferred to [facility] on 12/06/23 at 1738. Personal belongings sent with patient. Report given to Eldon. Appropriate documentation sent with patient.
[2023-12-06] MEDS: PRAVASTATIN SODIUM 20 MG TABLET 80 MG PO (20:53)
[2023-12-07] MEDS: ACETAMINOPHEN 325 MG TABLET 650 MG PO ×3 (00:05→18:16)
[2023-12-07] MEDS: HYDROcodone/acetaminophen (*CRX) 5-325 MG TABLET 1 TAB PO ×2 (03:56→20:36)
[2023-12-07 04:11] VITALS: BP 153/83; PULSE 95; RESP 18; TEMP 36.7; O2SAT 98
[2023-12-07 06:01] LABS: Basophils Percent Auto 0.3 % (0.2-1.2); Eosinophils Absolute Auto 0.2 K/mm3 (0-0.3); Eosinophils Percent Auto 2.3 % (0-4.4); Hematocrit 28.1 % (37.0-47.0); Hemoglobin 9.4 g/dL (12.0-15.0); Immature Granulocyte Absolute 0.03 K/mm3 (0.00-0.031); Immature Granulocyte Percent A 0.5 % (0-0.5); Lymphocytes Absolute Auto 0.89 K/mm3 (0.9-3.2); Lymphocytes Percent Auto 13.5 % (18.3-44.2); Mean Corpuscular HGB Conc 33.5 g/dl (32-36); Mean Corpuscular Hemoglobin 30.3 pg (26-34); Mean Corpuscular Volume 90.6 fl (80-100); Mean Platelet Volume 9.3 fl (7.4-10.4); Monocytes Percent Auto 14.5 % (2.6-8.5); Neutrophils Absolute Auto 4.6 K/mm3 (1.3-6.7); Neutrophils Percent Auto 68.9 % (45.5-73.1); Platelet Count Result 109 k/mm3 (150-375); Red Cell Distribution Width 13.8 % (11.5-14.5); White Blood Count 6.6 K/mm3 (4.5-10.0)
[2023-12-07] MEDS: LEVOTHYROXINE SODIUM 50 MCG TABLET PO (06:03)
[2023-12-07] MEDS: BISACODYL 5 MG TABLET EC PO (06:03)
[2023-12-07 06:21] LABS: Albumin Level 2.7 g/dL (3.5-5.1); Alkaline Phosphatase 59 U/L (38-126); Anion Gap 6 mmol/L (4-12); Aspartate Amino Transferase 12 U/L (14-36); Bilirubin,Total 0.6 mg/dL (0.2-1.3); Blood Urea Nitrogen 34 mg/dL (7-17); Calcium 8.5 mg/dL (8.4-10.2); Carbon Dioxide 21 mmol/L (22-30); Chloride 109 mmol/L (98-107); Estimated CRCL calculation 17 ml/min; Estimated Glomerular Filt Rate 28; Glucose 102 mg/dL (65-110); Magnesium 1.8 mg/dL (1.6-2.3); Potassium 3.8 mmol/L (3.4-5.0); Sodium 136 mmol/L (137-145)
[2023-12-07 07:27] LABS: Alanine Aminotransferase < 6 U/L (6-35)
[2023-12-07] MEDS: buPROPion HCL SR (12 HR) 150 MG TAB PO ×2 (09:11→20:32)
[2023-12-07] MEDS: FERROUS SULFATE 325 MG TABLET DR BY MOUTH ×2 (09:11→18:16)
[2023-12-07 09:12] VITALS: PULSE 100
[2023-12-07] MEDS: SOTALOL HCL 80 MG TABLET PO ×2 (09:12→20:31)
[2023-12-07] MEDS: LIDOCAINE 5% PATCH 2 PATCH TRANSDERM (09:18)
--- NOTE | 2023-12-07 10:01 | WPDUROPN2 ---
Progress Note: A&P Assessment and Plan (1) Retroperitoneal hematoma: Code(s): K68.3 - Retroperitoneal hematoma Status: Acute Assessment and Plan: Comfortable, hemodynamically stable. Hemoglobin remains stable Plan to resume [place] 12/12/23 Okay for discharge from urologic standpoint Subjective Subjective Date/Time Seen: 12/07/23 10:01 Interval history: Nelia is doing very well today. Reports no concerns. Denies flank pain or back pain. No nausea, vomiting, fever, chills. Voiding without difficulty, denies dysuria or hematuria. Review of Systems Review of Systems: All systems reviewed & are unremarkable except as noted in HPI and below Exam Narrative: General: Awake, alert, comfortable, no acute distress HEENT: Normocephalic, atraumatic, sclerae anicteric Respiratory: Normal respiratory effort, no accessory muscle use Abdomen: Nondistended, soft, nontender Skin: Normal coloration, warm and dry Neurologic: No focal neuro deficits noted Psychiatric: Appropriate mood and affect, judgment and insight intact Objective Data Vital Signs Vital Signs: Vital Signs - 24 hr 12/06/23 11:29 12/06/23 12:00 12/06/23 15:26 Temperature 97.3 F L Pulse Rate 109 H 94 Respiratory Rate 18 Blood Pressure 168/95 H Pulse Oximetry 98 Oxygen Delivery Room Air 12/06/23 15:53 12/06/23 20:53 12/06/23 22:20 Temperature 98 F 98.2 F Pulse Rate 93 80 98 Respiratory Rate 16 18 Blood Pressure 130/84 113/76 Pulse Oximetry 98 95 Oxygen Delivery 12/06/23 20:00 12/06/23 21:54 12/07/23 04:11 Temperature 98.1 F Pulse Rate 95 Respiratory Rate 18 Blood Pressure 153/83 H Pulse Oximetry 96 98 Oxygen Delivery Room Air Room Air 12/07/23 09:12 Temperature Pulse Rate 100 Respiratory Rate Blood Pressure Pulse Oximetry Oxygen Delivery Intake/Output Intake/Output: Intake & Output 12/04/23 12/05/23 12/06/23 12/07/23 23:59 23:59 23:59 23:59 Intake Total 1700 1975 1120 300 Output Total 800 1575 Balance 1700 1175 -455 300 Meds/Results Medications: Active Medications Generic Name Dose Route Start Last Admin Trade Name Freq PRN Reason Stop Dose Admin Acetaminophen 650 mg 12/06/23 12:55 12/07/23 06:09 Acetaminophen 325 Mg Tablet PO Not Given Q6H RUY Hydrocodone Bitart/Acetaminophen 1 tab 12/05/23 10:10 12/07/23 03:56 Hydrocodone/Acetaminophen (*Crx) 5-325 Mg Tablet PO 1 tab Q4H PRN Administration Pain Rated 4-6 Bisacodyl 5 mg 12/03/23 04:35 12/07/23 06:03 Bisacodyl 5 Mg Tablet Ec PO 5 mg QAM PRN Administration Constipation Bupropion HCl 150 mg 12/03/23 09:00 12/07/23 09:11 Bupropion Hcl Sr (12 Hr) 150 Mg Tab PO 150 mg Q12HR RUY Administration Ferrous Sulfate 325 mg 12/03/23 09:00 12/07/23 09:11 Ferrous Sulfate [address] BY MOUTH 325 mg BID RUY Administration Hydromorphone HCl 0.5 mg 12/03/23 01:12 12/06/23 00:55 Hydromorphone Hcl Inj (*Crx) 1 Mg/Ml Syr IV PUSH 0.5 mg Q4H PRN Administration Pain Rated 7-10 Levothyroxine Sodium 50 mcg 12/03/23 06:30 12/07/23 06:03 Levothyroxine Sodium 50 Mcg Tablet PO 50 mcg DAILY@0630 RUY Administration Lidocaine 2 patch 12/07/23 09:00 12/07/23 09:18 Lidocaine 5% Patch TRANSDERM 2 patch DAILY RUY Administration Ondansetron HCl 4 mg 12/03/23 01:12 12/03/23 10:32 Ondansetron Inj 4 Mg/2 Ml Vial IV PUSH 4 mg Q4H PRN Administration Nausea Perflutren Lipid Microsphere 0 ml 12/05/23 09:45 Perflutren Lipid Microspheres 1.5 Ml Vial Diluted To 10 Ml Total Volume IV PUSH 12/08/23 09:46 ONCE PRN adequate visualization Protocol Pravastatin Sodium 80 mg 12/03/23 21:00 12/06/23 20:53 Pravastatin Sodium 20 Mg Tablet PO 80 mg HS RUY Administration Sotalol HCl 80 mg 12/03/23 09:00 12/07/23 09:12 Sotalol Hcl 80 Mg Tablet PO 80 mg Q12HR RUY Administration
--- NOTE | 2023-12-07 10:16 | PM.IMPN ---
Progress Note: A&P Assessment and Plan (1) Retroperitoneal hematoma: Code(s): K68.3 - Retroperitoneal hematoma Status: Acute Assessment and Plan: S/P lithotripsy and stent exchange now with left retroperitoneal hematoma Hemoglobin 12.0--->11.0 this morning serial H/H pain control with tramadol and Dilaudid Telemetry NPO currently 12/02: Small ecchymosis to left flank (less than a dime size) with flank tenderness. Monitor for worsening hematoma. Trend H/H Pain control Clear liquids U/A concerns for infection. Urine culture pending. Added Rocephin. Bedrest given retroperitoneal hematoma Transfuse for hemoglobin < 7 g/dl If patient has persistent bleeding she would need transfer to tertiary care center. 12/03: Urine culture was negative H/H 9.9 today continue to monitor okay to advance activity to out of bed to chair per urology advanced diet to heart healthy 12/04: H/H stable Up as tolerated with assistance 12/05: PT OT consulted Hemoglobin 11.0 today Okay to restart Eliquis on 12/12/23 Comfortable, hemodynamically stable. Hemoglobin remains stable Plan to resume Eliquis 12/12/23 Okay for discharge from urologic standpoint 12/06 stable- monitor (2) Constipation: Code(s): K59.00 - Constipation, unspecified Status: Acute Assessment and Plan: miralax, will add suppository Plan h/o afib- will restart Eliquis on 12/12/23 Also has Medtronic micra pacemaker DDD (60-120 bpm) placed 09/2022 Time Spent With Patient Time with patient: 25 - 35 minutes Subjective Date/time seen: 12/07/23 10:16 Interval history: Interval history: 88 year old female with a PMH of kidney stone, pulmonary embolus, atrial fibrillation on Eliquis s/p medtronic micra pacemaker, hypothyroidism, HTN, CHFpEF, depression, CKD, high cholesterol, and cerebral aneurysm who recently had a laser lithotripsy with stent exchange on 12/[address] Shaikh. She presented to the emergency room overnight with complaints of flank pain. Imaging showed a left retroperitoneal hematoma with left hydronephrotic changes and bilateral staghorn stones. She was admitted for serial H/H and treatment for UTI with urology consult. 12/02: Patient is seen and examined today. She is resting in bed in no acute distress. She reports that she had her lithotripsy procedure yesterday. At home she became dizzy when standing up from the toilet and fell down on her left knee. She could not stand back up on her own so she sat on the floor until her friend came back to check on her. She estimates she was down for a couple of hours. She did not fall striking her back. She was having severe left flank pain and nausea. She was unsure if the nausea was because of the pain or the recent anesthesia. Today she is comfortable at rest with pain medication. She is not actively nauseated. Plan was discussed with her and Urologist, Dr Garcia. 12/03: NAEON. She seems like she is getting confused. She still answers appropriately but her responses are delayed and she doesn't seem as sharp. Hemoglobin still downtrending but slowly. 12/04: Apparently overnight the patient started to experience right arm and neck pain for which she was transferred to the IMU for closer monitoring. On exam today she denies chest pain and feels that her pain was related to her recent fall and musculoskeletal strain. She was also on bedrest initially and was feeling uncomfortable due to being in the same position. She denies dizziness, headache, chest pain, shortness of breath, abdominal pain, nausea, or vomiting. She does have some back and abdominal pain when she takes a deep breath. 12/05: I would plan to discharge her today however she feels that she is too weak to go home alone. She continues to have musculoskeletal pain. PT and OT will consult today she may need SNF for further therapy. Patient could be downgraded to Medicine. 12/06- assumi
[2023-12-07 14:00] VITALS: BP 170/97; PULSE 99; RESP 16; TEMP 36.6; O2SAT 97
[2023-12-07] MEDS: BISACODYL 10 MG SUPPOSITORY RECTAL (14:08)
[2023-12-07 19:42] VITALS: BP 161/66; PULSE 100; RESP 18; TEMP 36.8; O2SAT 98
[2023-12-07] MEDS: PRAVASTATIN SODIUM 20 MG TABLET 80 MG PO (20:28)
[2023-12-07 20:31] VITALS: PULSE 100
[2023-12-08] MEDS: HYDROcodone/acetaminophen (*CRX) 5-325 MG TABLET 1 TAB PO (00:59)
[2023-12-08 04:48] VITALS: BP 157/89; PULSE 86; RESP 18; TEMP 36.1; O2SAT 98
[2023-12-08] MEDS: LEVOTHYROXINE SODIUM 50 MCG TABLET PO (05:38)
[2023-12-08] MEDS: ACETAMINOPHEN 325 MG TABLET 650 MG PO ×2 (05:38→12:41)
[2023-12-08] MEDS: buPROPion HCL SR (12 HR) 150 MG TAB PO (09:38)
[2023-12-08] MEDS: FERROUS SULFATE 325 MG TABLET DR BY MOUTH ×2 (09:38→17:16)
[2023-12-08] MEDS: LIDOCAINE 5% PATCH 2 PATCH TRANSDERM (09:38)
[2023-12-08 09:42] VITALS: PULSE 64
[2023-12-08] MEDS: SOTALOL HCL 80 MG TABLET PO (09:42)
--- NOTE | 2023-12-08 10:53 | WPDUROPN2 ---
Progress Note: A&P Assessment and Plan (1) Retroperitoneal hematoma: Code(s): K68.3 - Retroperitoneal hematoma Status: Acute (2) Ureterolithiasis: Code(s): N20.1 - Calculus of ureter Status: Acute Assessment and Plan: Home anytime from our standpoint. F/U: 7-14 days to re-check H/H Subjective Subjective Date/Time Seen: 12/08/23 10:53 Interval history: Pt. reports feeling much better today Review of Systems Cardiovascular: Cardiovascular: Denies chest pain, Denies lightheadedness, Denies palpitations and Denies dyspnea Respiratory: Respiratory: Denies dyspnea Gastrointestinal: Gastrointestinal: Denies diarrhea, Denies nausea and Denies vomiting Genitourinary: Genitourinary: Denies hematuria and Denies dysuria Endocrine: Endocrine: Denies palpitations Exam Const: General: no acute distress Resp: Effort & Inspection: normal respiratory effort GI: Inspection: non-distended GI Palp: No abdominal tenderness and No Guarding due to palpation present (GI) Auscultation: normal bowel sounds Objective Data Vital Signs Vital Signs: Vital Signs - 24 hr 12/07/23 14:00 12/07/23 19:42 12/07/23 20:31 Temperature 97.8 F 98.2 F Pulse Rate 99 100 100 Respiratory Rate 16 18 Blood Pressure 170/97 H 161/66 H Pulse Oximetry 97 98 12/08/23 04:48 12/08/23 09:42 Temperature 97 F L Pulse Rate 86 64 Respiratory Rate 18 Blood Pressure 157/89 H Pulse Oximetry 98 Intake/Output Intake/Output: Intake & Output 12/05/23 12/06/23 12/07/23 12/08/23 23:59 23:59 23:59 23:59 Intake Total 1975 1120 880 400 Output Total 800 1575 Balance 1175 -455 880 400 Meds/Results Medications: Active Medications Generic Name Dose Route Start Last Admin Trade Name Freq PRN Reason Stop Dose Admin Acetaminophen 650 mg 12/06/23 12:55 12/08/23 05:38 Acetaminophen 325 Mg Tablet PO 650 mg Q6H RUY Administration Hydrocodone Bitart/Acetaminophen 1 tab 12/05/23 10:10 12/08/23 00:59 Hydrocodone/Acetaminophen (*Crx) 5-325 Mg Tablet PO 1 tab Q4H PRN Administration Pain Rated 4-6 Bisacodyl 5 mg 12/03/23 04:35 12/07/23 06:03 Bisacodyl 5 Mg Tablet Ec PO 5 mg QAM PRN Administration Constipation Bisacodyl 10 mg 12/07/23 12:51 12/07/23 14:08 Bisacodyl 10 Mg Suppository RECTAL 10 mg DAILY PRN Administration Constipation Bupropion HCl 150 mg 12/03/23 09:00 12/08/23 09:38 Bupropion Hcl Sr (12 Hr) 150 Mg Tab PO 150 mg Q12HR RUY Administration Ferrous Sulfate 325 mg 12/03/23 09:00 12/08/23 09:38 Ferrous Sulfate [address] BY MOUTH 325 mg BID RUY Administration Hydromorphone HCl 0.5 mg 12/03/23 01:12 12/06/23 00:55 Hydromorphone Hcl Inj (*Crx) 1 Mg/Ml Syr IV PUSH 0.5 mg Q4H PRN Administration Pain Rated 7-10 Levothyroxine Sodium 50 mcg 12/03/23 06:30 12/08/23 05:38 Levothyroxine Sodium 50 Mcg Tablet PO 50 mcg DAILY@0630 RUY Administration Lidocaine 2 patch 12/07/23 09:00 12/08/23 09:38 Lidocaine 5% Patch TRANSDERM 2 patch DAILY RUY Administration Ondansetron HCl 4 mg 12/03/23 01:12 12/03/23 10:32 Ondansetron Inj 4 Mg/2 Ml Vial IV PUSH 4 mg Q4H PRN Administration Nausea Pravastatin Sodium 80 mg 12/03/23 21:00 12/07/23 20:28 Pravastatin Sodium 20 Mg Tablet PO 80 mg HS RUY Administration Senna 8.6 mg 12/07/23 11:48 Sennosides 8.6 Mg Tablet PO HS PRN Constipation Sotalol HCl 80 mg 12/03/23 09:00 12/08/23 09:42 Sotalol Hcl 80 Mg Tablet PO 80 mg Q12HR RUY Administration Radiology Results: ITS Impressions Abdomen/Pelvis CT 12/02/23 23:00 IMPRESSION: 1. Left retroperitoneal hematoma with left hydronephrotic changes and bilateral staghorn stones. Atrophic right kidney Left double-J stent. 2. Multiple stones in the urinary bladder. 3. Minimal fluid in the pelvis. 4. Fat stranding around the descendi
--- NOTE | 2023-12-08 13:20 | PM.DS ---
DS: Admitting Diagnosis Discharge Date 12/07 Admitting Diagnosis flank pain DS: Discharge Diagnosis Discharge Diagnosis (1) Retroperitoneal hematoma: Code(s): K68.3 - Retroperitoneal hematoma Status: Acute Assessment and Plan: S/P lithotripsy and stent exchange now with left retroperitoneal hematoma Hemoglobin 12.0--->11.0 this morning serial H/H pain control with tramadol and Dilaudid Telemetry NPO currently 12/02: Small ecchymosis to left flank (less than a dime size) with flank tenderness. Monitor for worsening hematoma. Trend H/H Pain control Clear liquids U/A concerns for infection. Urine culture pending. Added Rocephin. Bedrest given retroperitoneal hematoma Transfuse for hemoglobin < 7 g/dl If patient has persistent bleeding she would need transfer to tertiary care center. 12/03: Urine culture was negative H/H 9.9 today continue to monitor okay to advance activity to out of bed to chair per urology advanced diet to heart healthy 12/04: H/H stable Up as tolerated with assistance 12/05: PT OT consulted Hemoglobin 11.0 today Okay to restart Eliquis on 12/12/23 Comfortable, hemodynamically stable. Hemoglobin remains stable Plan to resume Eliquis 12/12/23 Okay for discharge from urologic standpoint 12/06 stable- monitor (2) Constipation: Code(s): K59.00 - Constipation, unspecified Status: Acute Assessment and Plan: miralax, will add suppository Plan see final dx above h/o afib- will restart Eliquis on 12/12/23 Also has Medtronic micra pacemaker DDD (60-120 bpm) placed 09/2022 DS: Summary Hospital Course Hospital Course: nterval history: 88 year old female with a PMH of kidney stone, pulmonary embolus, atrial fibrillation on Eliquis s/p medtronic micra pacemaker, hypothyroidism, HTN, CHFpEF, depression, CKD, high cholesterol, and cerebral aneurysm who recently had a laser lithotripsy with stent exchange on 12/[address] Shaikh. She presented to the emergency room overnight with complaints of flank pain. Imaging showed a left retroperitoneal hematoma with left hydronephrotic changes and bilateral staghorn stones. She was admitted for serial H/H and treatment for UTI with urology consult. 12/02: Patient is seen and examined today. She is resting in bed in no acute distress. She reports that she had her lithotripsy procedure yesterday. At home she became dizzy when standing up from the toilet and fell down on her left knee. She could not stand back up on her own so she sat on the floor until her friend came back to check on her. She estimates she was down for a couple of hours. She did not fall striking her back. She was having severe left flank pain and nausea. She was unsure if the nausea was because of the pain or the recent anesthesia. Today she is comfortable at rest with pain medication. She is not actively nauseated. Plan was discussed with her and Urologist, Dr Garcia. 12/03: NAEON. She seems like she is getting confused. She still answers appropriately but her responses are delayed and she doesn't seem as sharp. Hemoglobin still downtrending but slowly. 12/04: Apparently overnight the patient started to experience right arm and neck pain for which she was transferred to the IMU for closer monitoring. On exam today she denies chest pain and feels that her pain was related to her recent fall and musculoskeletal strain. She was also on bedrest initially and was feeling uncomfortable due to being in the same position. She denies dizziness, headache, chest pain, shortness of breath, abdominal pain, nausea, or vomiting. She does have some back and abdominal pain when she takes a deep breath. 12/05: I would plan to discharge her today however she feels that she is too weak to go home alone. She continues to have musculoskeletal pain. PT and OT will consult today she may need SNF for further therapy. Patient could be downgraded to
[2023-12-08 14:00] VITALS: BP 141/63; PULSE 60; RESP 18; TEMP 36.1; O2SAT 99
== END 2023-12-08 19:15 | disposition home health service (06) | DRG 919 ==
LOC: ANHED 12-03 01:16 → ANH3MEDSUR 12-03 01:45 → ANHIMU 12-05 05:14 → ANH3MED 12-06 17:39
PROVIDERS: Admitting Provider Internal Medicine; Emergency Provider Emergency Medicine; PCP Internal Medicine; Visit Provider Nurse Practitioner Acute Care
DX: K91.871 Postprocedural hematoma of a digestive system organ or structure following other procedure (principal); K68.3 Retroperitoneal hematoma; I13.0 Hypertensive heart and chronic kidney disease with heart failure and stage 1 through stage 4 chronic kidney disease, or unspecified chronic kidney disease; I50.32 Chronic diastolic (congestive) heart failure; I49.5 Sick sinus syndrome; I48.0 Paroxysmal atrial fibrillation; I35.0 Nonrheumatic aortic (valve) stenosis; I27.20 Pulmonary hypertension, unspecified; I34.0 Nonrheumatic mitral (valve) insufficiency; N20.0 Calculus of kidney; N18.9 Chronic kidney disease, unspecified; B39.9 Histoplasmosis, unspecified; E03.9 Hypothyroidism, unspecified; E78.5 Hyperlipidemia, unspecified; F32.A Depression, unspecified; Z95.0 Presence of cardiac pacemaker; Z79.01 Long term (current) use of anticoagulants; Z86.711 Personal history of pulmonary embolism; Z86.010 Personal history of colon polyps; Z87.891 Personal history of nicotine dependence
CPT/HCPCS: 36415; 71045; 74018; 74176; 78582; 80053; 81001; 82948; 83690; 83735; 84484; 85014; 85018; 85025; 85055; 87086; 87088; 93005; 93306; 96361; 96375; 97161; 97165; 99285; A9270; A9540; A9558; C1758; C1769; C2617; G0378; J0360; J0690; J0696; J1100; J1170; J2371; J2405; J2704; J3010; J7030; J7120

== ENCOUNTER 2023-12-29 11:52 | Outpatient (CLI) | payer MEDICARE, SELFPAY ==
[2023-12-29 12:33] LABS: Hematocrit 48.5 % (37.0-47.0); Hemoglobin 15.5 g/dL (12.0-15.0); Mean Corpuscular Hemoglobin 30.8 pg (26-34); Mean Corpuscular Volume 96.2 fl (80-100); Mean Platelet Volume 10.1 fl (7.4-10.4); Platelet Count Result 144 k/mm3 (150-375); Red Blood Count 5.04 M/mm3 (4.2-5.4); Red Cell Distribution Width 14.2 % (11.5-14.5); White Blood Count 5.5 K/mm3 (4.5-10.0)
[2023-12-29 12:41] LABS: Alanine Aminotransferase 11 U/L (6-35); Albumin Level 4.8 g/dL (3.5-5.1); Alkaline Phosphatase 97 U/L (38-126); Anion Gap 15 mmol/L (4-12); Aspartate Amino Transferase 28 U/L (14-36); Bilirubin,Total 0.8 mg/dL (0.2-1.3); Blood Urea Nitrogen 22 mg/dL (7-17); Calcium 9.6 mg/dL (8.4-10.2); Carbon Dioxide 23 mmol/L (22-30); Chloride 102 mmol/L (98-107); Estimated Glomerular Filt Rate 28; Glucose 76 mg/dL (65-110); Potassium 3.8 mmol/L (3.4-5.0); Sodium 140 mmol/L (137-145)
[2023-12-29 13:11] LABS: Thyroid Stimulating Hormone 0.891 uIU/mL (0.465-4.680)
[2023-12-29 13:16] LABS: Iron 130 ug/dL (37-170)
[2023-12-29 13:26] LABS: Percent Iron Saturation 47 % (20-50)
[2023-12-29 13:34] LABS: Free T4 Free Thyroxine 2.01 ng/mL (0.78-2.19)
[2023-12-29 13:47] LABS: Folic Acid 9.6 ng/mL (2.76->20)
== END 2023-12-29 11:53 | disposition home or self-care (01) ==
LOC: ANHLAB 11:56
PROVIDERS: PCP Internal Medicine; Visit Provider Internal Medicine
DX: D64.9 Anemia, unspecified (principal); R53.83 Other fatigue
CPT/HCPCS: 36415; 80053; 82607; 82728; 82746; 83540; 83550; 84439; 84443; 85027

== ENCOUNTER 2024-02-04 11:20 | Outpatient (CLI) | payer MEDICARE, SELFPAY ==
[2024-02-04 12:25] LABS: Partial Thromboplastin Time 24.6 Seconds (22.3-36.8); Prothrombin Time 13.8 Seconds (11.1-14.7)
== END 2024-02-04 11:21 | disposition home or self-care (01) ==
LOC: ANHIMG 11:27 → ANHLAB 11:28
PROVIDERS: PCP Internal Medicine; Visit Provider Specialist
DX: Z01.818 Encounter for other preprocedural examination (principal); Z92.29 Personal history of other drug therapy; N20.1 Calculus of ureter; N13.5 Crossing vessel and stricture of ureter without hydronephrosis; Z79.01 Long term (current) use of anticoagulants
CPT/HCPCS: 36415; 85610; 85730; 87086; 87088

== ENCOUNTER 2024-02-10 00:20 | Day surgery (SDC) | payer MEDICARE, SELFPAY ==
--- NOTE | 2024-02-01 14:35 | PM.HPGS ---
History of Present Illness History of Present Illness Consent: Risks, benefits, and alternatives have been discussed and questions answered. Patient agrees to proceed with procedure. 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 On occasion she has encrustation of the stent that requires ESWL. In November, ESWL led to a perinephric hematoma. She now presents for cystoscopy with left ureteral stent exchange on a short-term interval. Review of Systems Review of Systems: All systems reviewed & are unremarkable except as noted in HPI and below PMFSH Past Medical History Medical History Jered-tachy syndrome Cerebral aneurysm Status post coil embolization. Chronic anemia Chronic kidney disease Current use of termite treater anticoagulation Degenerative disc disease Depression Diastolic congestive heart failure Dyslipidemia Endometriosis Heart failure with preserved ejection fraction EF was 60 to 65% in 07/2021. Hemorrhoids Histoplasmosis Hyperlipidemia Hypertension Hypothyroidism Intraoperative ureteral injury (07/2021) Kidney stones Including known right staghorn calculus. Mild aortic stenosis Mild pulmonary hypertension Mitral regurgitation mod to severe Moderate mitral regurgitation Nonspecific colitis Pacemaker Paroxysmal atrial fibrillation Pulmonary embolism Surgical History Surgical History History of arthroplasty of right knee History of cataract extraction History of colonoscopy with polypectomy History of cystoscopy History of lumbar surgery History of tonsillectomy and adenoidectomy History of total hysterectomy with bilateral salpingo-oophorectomy (BSO) Status post coil embolization of cerebral aneurysm Family History Family History Mother , in her 70s Hypertension Father Hypertension Acute myocardial infarction Social History Social History Social History: Surrogate decision maker: Seth Peterson, grandson. Code status: Full code. Smoking packs per day: 0.25 Smoking cigarettes per day: 5.0 Years smoked: 15 Smoking pack-years: 3.75 Smoking status: Former smoker Tobacco type: cigarettes Second hand tobacco smoke exposure: No Smoking end date: 06/06/74 Alcohol intake: current Drinks per week: 1 Alcohol use details: 6 oz of wine. Substance use: never Substance use type: does not use Do You Feel Safe in your Home?: Yes Lack of Transportation: No Lack of Food: Never True Current Housing: I Have Housing Concerned About Future Housing: No Difficulty Paying Gas/Electric Bills: No Difficulty Paying for Meds: No Currently Unemployed: No Education: Master's Degree or Higher Difficulty w/ Childcare or Family Care: No Living arrangements: alone Additional living arrangements comments: as of September 2020. She and her had 3 children, all whom are . Additional occupation/education comments: Retired. Spiritual care concerns: No Meds Home Medications and Allergies Home Medications Medication Instructions Recorded Confirmed Type bupropion HCl 150 mg tablet,12 hr 150 mg PO BID 11/19/19 12/03/23 History sustained-release cholecalciferol (vitamin D3) 50 50 mcg PO DAILY 11/19/19 12/03/23 History mcg (2,000 unit) capsule (Vitamin D3) levothyroxine 50 mcg tablet 50 mcg PO QAM 11/19/19 12/03/23 History pravastatin 80 mg tablet 80 mg PO HS 11/19/19 12/03/23 History tramadol 50 mg tablet 50 mg PO Q6H PRN pain #20 tabs 07/30/22 12/03/23 Rx sotalol 80 mg tablet 80 mg PO Q12HR
[2024-02-08 11:31] VITALS: BMI 23.3
--- NOTE | 2024-02-08 11:48 | PC.NURSE ---
Report to the Outpatient Waiting Room, entrance under the green pavilion located off [facility], at time __06:30am___on date 02/10/24 . Planned Procedure Time: __08:30am .? Time changes happen often and if your time is changed the preop area will call you the afternoon before. - You and your visitor will be asked to self-screen and do not enter if you have any COVID symptoms. Please call surgeon if you need to reschedule. - A mask is optional within the hospital at this time. Patients may have clear liquids (water, carbonated beverages, clear teas, apple juice) until 3 hours prior to surgery with a maximum of 20 ounces. - No food from midnight until time of surgery and no smoking Take only the following medications with a SIP of water on the morning of surgery: _Busprione, Levothyroxine, and Solalol. May take Tramadol for pain if needed DO NOT STOP ANY OF YOUR OTHER PRESCRIPTION MEDICATIONS PRIOR TO SURGERY EXCEPT THE FOLLOWING Medications to discontinue per physician _Pt to stop her Eliquis per Dr. Shaikh instructions- pt stated she is to hold it 3 days prior Date to take last dose 02/07/24 Pt to hold all vitamins, supplements, herbs and probiotics for 3 days prior to surgery. Date to take last dose 02/07/24. Please no make-up, nail nepalese, hairspray, perfume, deodorant, or body powder the day of surgery.? No jewelry (including any body piercings) or valuables the day of surgery, leave them at home.? Please take a shower or bath the night before, or the morning of, surgery with an antibacterial soap.? Wear comfortable, loose fitting clothing.? - Jewelry must be removed prior to entering the operating room.? Rings and piercings that are not removed may be cut off. - The hospital will not accept responsibility for valuables.? - Please leave all valuables, including medications, at home the day of surgery. If you are going home after surgery, a licensed power truck driver must drive you home.? - NO public transportation without another adult if you receive anesthesia. - We recommend that an adult stay with you for 24 hours following discharge. - We also recommend that you do not drive, make important decision, drink alcoholic beverages, or take any drugs that were not prescribed by your health care provider for at least 24 hours after your discharge time. Follow any additional instructions given to you from your surgeon. Telephone instructions given to _patient___and asked if any additional questions and then verbalized understanding. Patient advised to call surgeon office or pre surgery nurse liaison [phone] if any additional questions.
--- NOTE | 2024-02-09 11:01 | WPDANESEPPF ---
Anes - Initial Pre Proc Eval Procedure: Operation Date: 02/10/24 08:30 Proposed Procedures p Left Extracorporeal Shock Wave Lithotripsy, - Nabil Shaikh MD s Cystoscopy, Left Stent Exchange - Nabil Shaikh MD Date/Time: 02/09/24 11:01 Surgeon: Nabil Shaikh MD Pre Op Diagnosis: left UPJ obstruction, left kidney stone Patient Data Age: 88 Gender: F Height: 1.57 m Weight: 58 kg Allergies Allergy/AdvReac Type Severity Reaction Status Date / Time codeine AdvReac Mild Nausea Verified 02/03/24 12:50 Home Medications Medication Instructions Recorded Confirmed Type bupropion HCl 150 mg tablet,12 hr 150 mg PO BID 11/19/19 02/08/24 History sustained-release cholecalciferol (vitamin D3) 50 50 mcg PO DAILY 11/19/19 02/08/24 History mcg (2,000 unit) capsule (Vitamin D3) levothyroxine 50 mcg tablet 50 mcg PO QAM 11/19/19 02/08/24 History pravastatin 80 mg tablet 80 mg PO HS 11/19/19 02/08/24 History tramadol 50 mg tablet 50 mg PO Q6H PRN pain #20 tabs 07/30/22 02/08/24 Rx sotalol 80 mg tablet 80 mg PO Q12HR #60 tabs 09/24/22 02/08/24 Rx apixaban 2.5 mg tablet (Eliquis) 2.5 mg PO BID 11/19/22 02/08/24 History ferrous sulfate 325 mg (65 mg 325 mg PO BID 05/09/23 02/08/24 History iron) tablet bisacodyl 5 mg tablet,delayed 5 mg PO QAM PRN Constipation #30 05/12/23 02/08/24 Rx release (Laxative (bisacodyl)) tabs Patient hx anesthesia problems: none Family hx anesthesia problems: none Results Review: All pre-operative results and documents have been reviewed as part of the pre-operative evaluation. [facility] Past Medical History Medical History Jered-tachy syndrome Cerebral aneurysm Status post coil embolization. Chronic anemia Chronic kidney disease Current use of shelter anticoagulation Degenerative disc disease Depression Diastolic congestive heart failure Dyslipidemia Endometriosis Heart failure with preserved ejection fraction EF was 60 to 65% in 07/2021. Hemorrhoids Histoplasmosis Hyperlipidemia Hypertension Hypothyroidism Intraoperative ureteral injury (07/2021) Kidney stones Including known right staghorn calculus. Mild aortic stenosis Mild pulmonary hypertension Mitral regurgitation mod to severe Moderate mitral regurgitation Nonspecific colitis Pacemaker Paroxysmal atrial fibrillation Pulmonary embolism Surgical History Surgical History History of arthroplasty of right knee History of cataract extraction History of colonoscopy with polypectomy History of cystoscopy History of lumbar surgery History of tonsillectomy and adenoidectomy History of total hysterectomy with bilateral salpingo-oophorectomy (BSO) Status post coil embolization of cerebral aneurysm Family History Family History Mother , in her 70s Hypertension Father Hypertension Acute myocardial infarction Social History Social History Social History: Surrogate decision maker: grand Stephanson. Code status: Full code. Smoking packs per day: 0.25 Smoking cigarettes per day: 5.0 Years smoked: 15 Smoking pack-years: 3.75 Smoking status: Former smoker Tobacco type: cigarettes Second hand tobacco smoke exposure: No Smoking end date: 06/06/74 Alcohol intake: current Drinks per week: 1 Alcohol use details: 6 oz of wine. Substance use: never Substance use type: does not use Do You Feel Safe in your Home?: Yes Lack of Transportation: No Lack of Food: Never True Current Housing: I Have Housing Concerned About Future Housing: No Difficulty Paying Gas/Electric Bills: No Difficulty Paying for Meds: No Currently Unemployed: No Education: Master's Degree or Higher Difficulty
[2024-02-10] VITALS (13 sets, daily range): BP systolic 118–221; BP diastolic 76–151; PULSE 59–107; RESP 16–20; TEMP 36.4–36.6; O2SAT 98–100
--- NOTE | ~2024-02-10 | XR_ITS ---
Supine and upright views of the abdomen Clinical history: Lithotripsy COMPARISON: 11/24/2023 Findings: Bowel gas pattern is nonspecific. No evidence for obstruction or free air. Extensive stagho rn calculus in the right renal collecting system is unchanged. Stable left ureteral stent with 2.3 cm ovoid stone at the left renal pelvis region. Osseous structures are intact. Impression: Stable extensive staghorn calculus of the right renal collection system. Stable 2.3 cm ovoid stone at the left renal pelvis with left ureteral stent in place. Reviewed, dictated and finalized at location . Impression: Stable extensive staghorn calculus of the right renal collection system. Stable 2.3 cm ovoid stone at the left renal pelvis with left ureteral stent in place.
[2024-02-10] MEDS: LACTATED RINGERS 1,000 ML 30 ML IV CONT (07:30)
[2024-02-10 07:54] LABS: Prothrombin Time 13.3 Seconds (11.1-14.7)
--- NOTE | 2024-02-10 08:51 | WPDHPUPDATE1 ---
History and Physical Update Update Date/Time: 02/10/24 08:51 History and Physical has been reviewed, including an updated exam of the patient. There are NO changes in the patient's condition. Risks, benefits, and alternatives have been discussed and questions answered. Patient agrees to proceed with procedure.
[2024-02-10] MEDS: ceFAZolin 2 GM/D5W 50 ML 2 GM/50 ML BAG IVPB (09:09)
--- NOTE | 2024-02-10 09:52 | W.PM.PROC2 ---
Procedure Note - Detailed Date of Procedure 02/10/24 Pre-op Diagnosis left UPJ obstruction, left kidney stone Post-op Diagnosis Same Procedure Performed left ESWL, cystoscopy with left stent exchange Surgeon Nabil Shaikh MD Anesthesia General Description of Procedure Patient brought to the operative suite she has prepped draped in routine sterile fashion while in a frog-leg position. I first performed cystoscopy us 16 F flexible cystoscope. A 0.035 in glidewire was advanced into left renal pelvis. Initially, was unable to remove the stent because of encrustation of the proximal coil. After 1580 shocks with a power setting 1-4 was able to stent replaced it with a 6F variable length stent. Was calyx distal coil bladder. She was taken good condition Drains No Packing No Pathology None sent Complications No immediate complications
[2024-02-10] MEDS: fentaNYL CITRATE INJ (*CRX) 100 MCG/2 ML VIAL 25 MCG IV PUSH ×4 (10:05→10:29)
[2024-02-10] MEDS: MIDAZOLAM HCL (*CRX) 2 MG/2 ML VIAL 1 MG IV PUSH (10:35)
[2024-02-10] MEDS: LABETALOL HCL INJ 100 MG/20 ML VIAL IV PUSH ×2 (10:59→11:31)
--- NOTE | 2024-02-10 13:35 | SUR.PHASEII ---
1215 PACEMAKER INTERROGATED BY NURSE SARAH; [employer] REP CALLED TO SAY NO EVENTS NOTED .
== END 2024-02-10 13:10 | disposition home or self-care (01) ==
PROVIDERS: PCP Internal Medicine; Visit Provider Urology
PROC: (CPT 50590; principal; 2024-02-10 08:30)
PROC: (CPT 52352; 2024-02-10 08:30)
DX: N13.30 Unspecified hydronephrosis (principal); I13.0 Hypertensive heart and chronic kidney disease with heart failure and stage 1 through stage 4 chronic kidney disease, or unspecified chronic kidney disease; I50.9 Heart failure, unspecified; N18.9 Chronic kidney disease, unspecified; E78.5 Hyperlipidemia, unspecified; E03.9 Hypothyroidism, unspecified; I48.0 Paroxysmal atrial fibrillation; D64.9 Anemia, unspecified; F32.A Depression, unspecified; I34.0 Nonrheumatic mitral (valve) insufficiency; I27.20 Pulmonary hypertension, unspecified; Z86.711 Personal history of pulmonary embolism
CPT/HCPCS: 50590; 52332; 36415; 74018; 85610; 85730; 87086; C1758; C1769; C2617; J0360; J0690; J1100; J2250; J2405; J2704; J2765; J3010; J7030; J7120

== ENCOUNTER 2024-04-13 12:29 | Outpatient (CLI) | payer MEDICARE, SELFPAY ==
[2024-04-13 13:23] LABS: Hemoglobin 14.7 g/dL (12.0-15.0)
[2024-04-13 13:32] LABS: Anion Gap 10 mmol/L (4-12); Blood Urea Nitrogen 26 mg/dL (7-17); Calcium 9.7 mg/dL (8.4-10.2); Carbon Dioxide 25 mmol/L (22-30); Chloride 104 mmol/L (98-107); Estimated Glomerular Filt Rate 27; Glucose 64 mg/dL (65-110); Sodium 139 mmol/L (137-145)
[2024-04-13 13:40] LABS: Partial Thromboplastin Time 30.2 Seconds (22.3-36.8); Prothrombin Time 13.6 Seconds (11.1-14.7)
== END 2024-04-13 12:30 | disposition home or self-care (01) ==
PROVIDERS: Anesthesiology; PCP Internal Medicine; Visit Provider Urology
DX: Z01.812 Encounter for preprocedural laboratory examination (principal); D64.9 Anemia, unspecified; N18.9 Chronic kidney disease, unspecified; N13.5 Crossing vessel and stricture of ureter without hydronephrosis
CPT/HCPCS: 36415; 80048; 85014; 85018; 85610; 85730; 87086

== ENCOUNTER 2024-04-20 05:54 | Day surgery (SDC) | payer MEDICARE, SELFPAY ==
--- NOTE | 2024-04-09 13:09 | PC.NURSE ---
Report to the Outpatient Waiting Room, entrance under the green pavilion located off [facility], at time 6 AM on date _04/20/24 . Planned Procedure Time: __7:30 AM .? Time changes happen often and if your time is changed the preop area will call you the afternoon before. - You and your visitor will be asked to self-screen and do not enter if you have any COVID symptoms. Please call surgeon if you need to reschedule. - A mask is optional within the hospital at this time. Patients may have clear liquids (water, carbonated beverages, clear teas, apple juice) until 3 hours prior to surgery(4:30 AM) with a maximum of 20 ounces. - No food from midnight until time of surgery and no smoking - Infants may have breast milk until 4 hours before surgery, infant formula 6 hours prior to surgery. - Children will be allowed to drink immediately following surgery.? If applicable, please bring a bottle or sippy cup to assist with drinking. Juice, water, soda, and popsicles are readily available.? For infants on formula, please bring formula the day of surgery.? Pacifiers are allowed. Take only the following medications with a SIP of water on the morning of surgery: BUPROPION,LEVOTHYROXINE,SOTALOL DO NOT STOP ANY OF YOUR OTHER PRESCRIPTION MEDICATIONS PRIOR TO SURGERY EXCEPT THE FOLLOWING Medications to discontinue per physician ___PT STATES HOLD ELIQUIS 3 DAYS PRE OP PER DR SCHRADER .LAST DOSE04/16/24 HOLD ALL VITAMINS AND SUPPLEMENTS 3 DAYS PRE OP.LAST DOSE 04/16/24 Please no make-up, nail yoruba, hairspray, perfume, deodorant, or body powder the day of surgery.? No jewelry (including any body piercings) or valuables the day of surgery, leave them at home.? Please take a shower or bath the night before, or the morning of, surgery with an antibacterial soap.? Wear comfortable, loose fitting clothing.? Children are encouraged to wear pajamas. - Jewelry must be removed prior to entering the operating room.? Rings and piercings that are not removed may be cut off. - The hospital will not accept responsibility for valuables.? - Please leave all valuables, including medications, at home the day of surgery. If you are going home after surgery, a licensed national dedicated truck driver must drive you home.? - NO public transportation without another adult if you receive anesthesia. - We recommend that an adult stay with you for 24 hours following discharge. - We also recommend that you do not drive, make important decision, drink alcoholic beverages, or take any drugs that were not prescribed by your health care provider for at least 24 hours after your discharge time. For Pediatric surgeries, we recommend two adults accompany the child home. Follow any additional instructions given to you from your surgeon. Telephone instructions given to _PATIENT and asked if any additional questions and then verbalized understanding. Patient advised to call surgeon office or pre surgery nurse liaison [phone] if any additional questions.
[2024-04-09 13:18] VITALS: BMI 21.8
--- NOTE | 2024-04-13 12:11 | PM.HPGS ---
History of Present Illness History of Present Illness Consent: Risks, benefits, and alternatives have been discussed and questions answered. Patient agrees to proceed with procedure. 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 On occasion she has encrustation of the stent that requires ESWL. In November, ESWL led to a perinephric hematoma. She now presents for cystoscopy with left ureteral stent exchange on a short-term interval. Review of Systems Review of Systems: All systems reviewed & are unremarkable except as noted in HPI and below PMFSH Past Medical History Medical History Jered-tachy syndrome Cerebral aneurysm Status post coil embolization. 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 Hemorrhoids Histoplasmosis Hyperlipidemia Hypertension Hypothyroidism Intraoperative ureteral injury (07/2021) Kidney stones Including known right staghorn calculus. Mild aortic stenosis Mild pulmonary hypertension Mitral regurgitation mod to severe Moderate mitral regurgitation Nonspecific colitis Pacemaker Paroxysmal atrial fibrillation Pulmonary embolism Surgical History Surgical History History of arthroplasty of right knee History of cataract extraction History of colonoscopy with polypectomy History of cystoscopy History of lumbar surgery History of tonsillectomy and adenoidectomy History of total hysterectomy with bilateral salpingo-oophorectomy (BSO) Status post coil embolization of cerebral aneurysm Family History Family History Mother , in her 70s Hypertension Father Hypertension Acute myocardial infarction Social History Social History Social History: Surrogate decision maker: Seth Peterson, grandson. Code status: Full code. Smoking packs per day: 0.25 Smoking cigarettes per day: 5.0 Years smoked: 15 Smoking pack-years: 3.75 Smoking status: Former smoker Tobacco type: cigarettes Second hand tobacco smoke exposure: No Smoking end date: 06/06/74 Alcohol intake: current Drinks per week: 1 Alcohol use details: 6 oz of wine. Substance use: never Substance use type: does not use Do You Feel Safe in your Home?: Yes Lack of Transportation: No Lack of Food: Never True Current Housing: I Have Housing Concerned About Future Housing: No Difficulty Paying Gas/Electric Bills: No Difficulty Paying for Meds: No Currently Unemployed: No Education: Master's Degree or Higher Difficulty w/ Childcare or Family Care: No Living arrangements: alone Additional living arrangements comments: as of September 2020. She and her had 3 children, all whom are . Additional occupation/education comments: Retired. Spiritual care concerns: No Meds Home Medications and Allergies Home Medications Medication Instructions Recorded Confirmed Type bupropion HCl 150 mg tablet,12 hr 150 mg PO BID 11/19/19 04/09/24 History sustained-release cholecalciferol (vitamin D3) 50 50 mcg PO DAILY 11/19/19 04/09/24 History mcg (2,000 unit) capsule (Vitamin D3) levothyroxine 50 mcg tablet 50 mcg PO QAM 11/19/19 04/09/24 History pravastatin 80 mg tablet 80 mg PO HS 11/19/19 04/09/24 History tramadol 50 mg tablet 50 mg PO Q6H PRN pain #20 tabs 07/30/22 04/09/24 Rx apixaban 2.5 mg tablet (Eliquis) 2.5 mg PO BID 11/19/22 04/09/24 History ferrous sulfate 325 mg (65 mg 325 mg PO BID 05/09/23 04/09/24 History iron) tablet hydrocodone 5 mg-acetaminophen 325 1 - 2 tablet PO Q6H PRN pain #20 02/10/24 04/09/24 Rx mg tablet tabs bisacodyl 5 mg tablet,delayed 5 mg PO QAM PRN Constipation 04/09/24 04/09/24 History release (Laxative (bisacodyl)) sotalol 80 mg tablet 40 mg PO DAILY 04/09/24 04/09/24 History Allergies Allergy/AdvReac Type Severity Reaction Status Date / Time codeine AdvReac Mild Nausea Verified 04/09/24 13:02 Exam Const: General: no acute distress Resp: Effort & Inspection: normal respiratory effort GI: Inspection: non-distended GI Palp: No abdominal tenderness and No Guarding due to palpation present (GI) Auscultation: normal bowel sounds Assessment and Plan Assessment and plan (1) Obstruction of left ureteropelvic junction (UPJ): Code(s): N13.5 - Crossing vessel and stricture of ureter without hydronephrosis Status: Acute Assessment and Plan: Cystoscopy, left ESWL, left ureteral stent exchange
[2024-04-20] VITALS (11 sets, daily range): BP systolic 123–193; BP diastolic 69–146; PULSE 68–127; RESP 14–20; TEMP 36.1–36.5; O2SAT 99–100
--- NOTE | ~2024-04-20 | XR_ITS ---
Supine and upright views of the abdomen Clinical history: Lithotripsy COMPARISON: 02/10/2024 Findings: Bowel gas pattern is nonspecific. No evidence for obstruction or free air. Left ureteral st ent in place. Stable 2.4 cm stone at the left renal pelvis region. Stable large staghorn calculus of the right renal collecting system. Osseous structures are intact. Impression: Left ureteral stent. Stable large staghorn calculus of the right renal collecting system. Stable 2.4 cm stone at the left renal pelvis region. Reviewed, dictated and finalized at location [facility] Impression: Left ureteral stent. Stable large staghorn calculus of the right renal collecting system. Stable 2.4 cm stone at the left renal pelvis region.
--- NOTE | 2024-04-20 06:08 | WPDHPUPDATE1 ---
History and Physical Update Update Date/Time: 04/20/24 06:08 History and Physical has been reviewed, including an updated exam of the patient. There are NO changes in the patient's condition. Risks, benefits, and alternatives have been discussed and questions answered. Patient agrees to proceed with procedure.
[2024-04-20] MEDS: LACTATED RINGERS 1,000 ML 30 ML IV CONT ×2 (06:45→08:41)
--- NOTE | 2024-04-20 06:47 | WPDANESEPPF ---
Anes - Initial Pre Proc Eval Procedure: Operation Date: 04/20/24 07:30 Proposed Procedures p Left Extracorporeal Shock Wave Lithotripsy, - Nabil Shaikh MD s Cystoscopy with Left Ureteral Stent Exchange - Nabil Shaikh MD Date/Time: 04/20/24 06:47 Surgeon: Nabil Shaikh MD Pre Op Diagnosis: upj obstruction, encrusted Left ureteral stent Patient Data Age: 88 Gender: F Height: 1.63 m Weight: 58 kg Last Vital Signs Temp 36.5 C 04/20/24 06:38 Pulse 80 04/20/24 06:38 Resp 16 04/20/24 06:38 BP 140/82 04/20/24 06:38 Pulse Ox 100 04/20/24 06:38 O2 Del Method Room Air 04/20/24 06:38 Allergies Allergy/AdvReac Type Severity Reaction Status Date / Time codeine AdvReac Mild Nausea Verified 04/20/24 06:25 Home Medications Medication Instructions Recorded Confirmed Type bupropion HCl 150 mg tablet,12 hr 150 mg PO BID 11/19/19 04/20/24 History sustained-release cholecalciferol (vitamin D3) 50 50 mcg PO DAILY 11/19/19 04/20/24 History mcg (2,000 unit) capsule (Vitamin D3) levothyroxine 50 mcg tablet 50 mcg PO QAM 11/19/19 04/20/24 History pravastatin 80 mg tablet 80 mg PO HS 11/19/19 04/20/24 History tramadol 50 mg tablet 50 mg PO Q6H PRN pain #20 tabs 07/30/22 04/20/24 Rx apixaban 2.5 mg tablet (Eliquis) 2.5 mg PO BID 11/19/22 04/20/24 History ferrous sulfate 325 mg (65 mg 325 mg PO BID 05/09/23 04/20/24 History iron) tablet hydrocodone 5 mg-acetaminophen 325 1 - 2 tablet PO Q6H PRN pain #20 02/10/24 04/09/24 Rx mg tablet tabs bisacodyl 5 mg tablet,delayed 5 mg PO QAM PRN Constipation 04/09/24 04/20/24 History release (Laxative (bisacodyl)) sotalol 80 mg tablet 40 mg PO DAILY 04/09/24 04/20/24 History Patient hx anesthesia problems: none Family hx anesthesia problems: none Results Review: All pre-operative results and documents have been reviewed as part of the pre-operative evaluation. [facility] Past Medical History Medical History Jered-tachy syndrome Cerebral aneurysm Status post coil embolization. Chronic anemia Chronic kidney disease Current use of retirement anticoagulation Degenerative disc disease Depression Diastolic congestive heart failure Dyslipidemia Endometriosis Heart failure with preserved ejection fraction EF was 60 to 65% in 07/2021. Hemorrhoids Histoplasmosis Hyperlipidemia Hypertension Hypothyroidism Intraoperative ureteral injury (07/2021) Kidney stones Including known right staghorn calculus. Mild aortic stenosis Mild pulmonary hypertension Mitral regurgitation mod to severe Moderate mitral regurgitation Nonspecific colitis Pacemaker Paroxysmal atrial fibrillation Pulmonary embolism Surgical History Surgical History History of arthroplasty of right knee History of cataract extraction History of colonoscopy with polypectomy History of cystoscopy History of lumbar surgery History of tonsillectomy and adenoidectomy History of total hysterectomy with bilateral salpingo-oophorectomy (BSO) Status post coil embolization of cerebral aneurysm Family History Family History Mother , in her 70s Hypertension Father Hypertension Acute myocardial infarction Social History Social History Social History: Surrogate decision maker: Seth Palaciosgrand ednason. Code status: Full code. Smoking packs per day: 0.25 Smoking cigarettes per day: 5.0 Years smoked: 15 Smoking pack-years: 3.75 Smoking status: Former smoker Tobacco type: cigarettes Second hand tobacco smoke exposure: No Smoking end date: 06/06/74 Alcohol intake: current Drinks per week: 1 Alcohol use details: 6 oz of wine. Substance use: never Substance use type: does not use Do You Feel Safe in your Home?: Yes Lack of Transportation: No Lack of Food: Never True Current Housing: I Have Housing Concerned About Future Housing: No Difficulty Paying Gas/Electric Bills: No Difficulty Paying for Meds: No Currently Unemployed: No Education: Master's Degree or Higher Difficulty w/ Childcare or Family Care: No Living arrangements: alone Additional living arrangements comments: as of September 2020. She and her had 3 children, all whom are . Additional occupation/education comments: Retired. Spiritual care concerns: No Anes - Eval Final PreProcedure Day of Procedure 04/20/24 06:47 Patient weight: normal Heart: regular rate and rhythm and murmur () Lungs: clear to auscultation Airway: Mallampati scale class II Results Review: All pre-operative results and documents have been reviewed as part of the pre-operative evaluation. Informed Consent: The patient's anesthetic plan and its attendant risks and benefits were discussed with the patient/family/POA. Questions were solicited and answers provided to the satisfaction of the patient/family/POA.
[2024-04-20] MEDS: ceFAZolin 2 GM/D5W 50 ML 2 GM/50 ML BAG IVPB (07:22)
--- NOTE | 2024-04-20 07:52 | W.PM.PROC2 ---
Procedure Note - Detailed Date of Procedure 04/20/24 Pre-op Diagnosis Left UPJ obstruction, encrusted left ureteral stent Post-op Diagnosis Same Procedure Performed Cystoscopy, left stent exchange, left ESWL Surgeon Nabil Shaikh MD Anesthesia General Description of Procedure This patient brought to the operative suite she was prepped draped in routine sterile fashion while in a frog-leg position. After the uneventful induction a general anesthetic we delivered 1300 shocks with the [employer] Lithotripter at a power setting of 3. I was then able to remove her encrusted left ureteral stent. A retrograde pyelogram was obtained to ensure appropriate placement of a new 6 F variable length stent with the proximal coil in the mid pole calyx and distal coil in the bladder. Drains Yes Packing No Pathology None sent
[2024-04-20] MEDS: fentaNYL CITRATE INJ (*CRX) 100 MCG/2 ML VIAL 25 MCG IV PUSH ×3 (08:37→08:53)
[2024-04-20] MEDS: LABETALOL HCL INJ 100 MG/20 ML VIAL 10 MG IV PUSH (09:06)
[2024-04-20] MEDS: oxyCODONE HCL (*CRX) 5 MG TAB IR PO (09:46)
--- NOTE | 2024-04-20 10:17 | SUR.PHASEII ---
Patient pacemaker was interrogated and there were fax machine issues. The [employer] wholesale representative was called and results of the interrogation were discussed. No issues were noted on the report. Fax number was updated.
== END 2024-04-20 10:26 | disposition home or self-care (01) ==
PROVIDERS: PCP Internal Medicine; Visit Provider Urology
PROC: (CPT 50590; principal; 2024-04-20 07:30)
PROC: (CPT 52310; 2024-04-20 07:30)
DX: N13.5 Crossing vessel and stricture of ureter without hydronephrosis (principal); I49.5 Sick sinus syndrome; E78.5 Hyperlipidemia, unspecified; I13.0 Hypertensive heart and chronic kidney disease with heart failure and stage 1 through stage 4 chronic kidney disease, or unspecified chronic kidney disease; N18.9 Chronic kidney disease, unspecified; I50.30 Unspecified diastolic (congestive) heart failure; E03.9 Hypothyroidism, unspecified; D64.9 Anemia, unspecified; F32.A Depression, unspecified; N80.9 Endometriosis, unspecified; I35.0 Nonrheumatic aortic (valve) stenosis; I27.20 Pulmonary hypertension, unspecified; I34.0 Nonrheumatic mitral (valve) insufficiency; I48.0 Paroxysmal atrial fibrillation; Z79.01 Long term (current) use of anticoagulants; Z79.891 Long term (current) use of opiate analgesic; Z98.890 Other specified postprocedural states; Z98.1 Arthrodesis status; Z95.0 Presence of cardiac pacemaker; Z87.891 Personal history of nicotine dependence; Z86.711 Personal history of pulmonary embolism; Z87.442 Personal history of urinary calculi; Z86.79 Personal history of other diseases of the circulatory system; Z82.49 Family history of ischemic heart disease and other diseases of the circulatory system
CPT/HCPCS: 52332; 50590; 36415; 74018; 80048; 85014; 85018; 85610; 85730; 87086; A9270; C1758; C1769; C2617; J0690; J1100; J2405; J2704; J3010; J7030; J7120; Q9966

== ENCOUNTER 2024-07-11 18:38 | Observation (INO) | payer MEDICARE, SELFPAY ==
[2024-07-11] VITALS (20 sets, daily range): BP systolic 65–199; BP diastolic 37–148; PULSE 59–87; RESP 9–23; TEMP 36.3; O2SAT 99–100
--- NOTE | ~2024-07-11 | XR_ITS ---
CHEST RADIOGRAPH, PA AND LATERAL CLINICAL HISTORY: dizziness . COMPARISON: 12/05/2023 TECHNIQUE: PA and lateral views of the chest. FINDINGS Calcified lymph nodes within the mediastinum suggesting prior granulomatous disease. Loop recorder projects to the left of midline. The remainder of the cardiomediastinal silhouette is otherwise unremarkable. The lungs are clear. IMPRESSION: Findings suggesting prior granulomatous disease, without focal infiltrate or effusion. Reviewed, dictated and finalized at location A. LMER APPRENTICE IMPRESSION: Findings suggesting prior granulomatous disease, without focal infiltrate or ef fusion.
--- NOTE | ~2024-07-11 | CT_ITS ---
CLINICAL INDICATION: Near syncope with urinary tract infection. COMPARISON: 12/02/2023. TECHNIQUE: Multiple contiguous axial images of the abdomen and pelvis were performed without the admi nistration of intravenous contrast The dose-length product (DLP) was 290.29 mGy-cm. Automated exposure control and iterative reconstruction technique were employed. FINDINGS/OBSERVATIONS: Visualized lower thorax: Multiple calcified granulomas detected within the bilateral lung bases. The remainder of the lungs are clear. The heart is of normal size, without pericardial effusion. Small hiatal hernia is present. Liver: Punctate calcifications identified within the hepatic parenchyma, suggesting prior granulomato us disease. The remainder of the liver demonstrates otherwise homogeneous attenuation and is not enlarged measuri ng 16 cm in longitudinal dimension. Gallbladder and biliary system: Layering stones are identified within the gallbladder, which is otherwise unremarkable. Pancreas: Limited evaluation of the pancreas secondary to the lack of intravenous contrast. Spleen: Punctate calcifications identified within the splenic parenchyma, suggesting prior granulomatous dise ase. The remainder of the spleen demonstrates otherwise homogeneous attenuation and is not enlarged measur ing 8 cm in longitudinal dimension. Kidneys: Global enlargement of the left kidney is identified with hydronephrosis within the upper pole. A double-J stent is identified within the left kidney which extends into the pelvis. Redemonstration of a lamellated stone within the left renal pelvis measuring 18 mm in cranial to caud al dimension. This stone is cranial to the double-J stent, likely contributing to the obstruction. Calcified debris is identified within the proximal left ureter, surrounding the double-J stent. Staghorn calculus within the right kidney, unchanged from 12/02/2023 Adrenal glands: Unremarkable. Gastrointestinal tract: Colonic diverticulosis without surrounding inflammatory change. Appendix: The appendix is not definitively visualized. However, no pericecal inflammatory change is identified suggest the presence of acute appendicitis. Vasculature: Densely calcified atherosclerotic disease without aneurysmal dilatation. Lymph nodes: Limited evaluation without intravenous contrast Pelvic structures: The bladder is minimally distended, and contains the distal portion of the double-J stent. Wall thick ening is also detected within the bladder, with surrounding inflammatory change. The uterus is either surgically absent or markedly atrophic. Body wall and musculoskeletal: Fat-containing bilateral hernias. Age-appropriate degenerative disease within the lumbosacral spine with osteophyte formation, disc spa ce narrowing, endplate changes and vacuum phenomena. IMPRESSION: Left-sided hydronephrosis despite left-sided double-J stent in good position for which stent obstruct ion is suspected. Calcified debris surrounding the proximal third of the double-J stent. Right-sided staghorn calculus. Left-sided 18 mm renal pelvis stone, both unchanged from 12/02/2023. Cholelithiasis without cystitis. Findings suggesting prior granulomatous disease. Reviewed, dictated and finalized at location A. RAL CLEANER IMPRESSION: Left-sided hydronephrosis despite left-sided double-J stent in good position fo r which stent obstruction is suspected. Calcified debris surrounding the proximal third of the double-J stent. Right-sided staghorn calculus. Left-sided 18 mm renal pelvis stone, both unchan ged from 12/02/2023. Cholelithiasis without cystitis. Findings suggesting prior granulomatous disease.
--- NOTE | 2024-07-11 18:47 | ECG_ITS ---
Test Date: 2024-07-11 18:50:49 Measurements Intervals [place] Rate: 61 P: 0 ID: 0 QRS: 113 QRSD: 154 T: 2 QT: 512 QTc: 517 Interpretive Statements ELECTRONIC VENTRICULAR PACEMAKER NO FURTHER INTERPRETATION IS POSSIBLE ATYPICAL ECG Compared to ECG 12/05/2023 11:06:28 Atrial flutter no longer present Electronically Signed On 07-12-2024 06:10:49 [employer]CH[employer] by Dylon Kumari D.O.
[2024-07-11 19:05] LABS: Basophils Percent Auto 0.9 % (0.2-1.2); Eosinophils Absolute Auto 0.2 K/mm3 (0-0.3); Eosinophils Percent Auto 4.4 % (0-4.4); Hematocrit 41.8 % (37.0-47.0); Hemoglobin 13.4 g/dL (12.0-15.0); Immature Granulocyte Absolute 0.01 K/mm3 (0.00-0.031); Immature Granulocyte Percent A 0.2 % (0-0.5); Immature Platelet Fraction Pct 2.5 % (0.9-11.2); Lymphocytes Absolute Auto 1.03 K/mm3 (0.9-3.2); Mean Corpuscular HGB Conc 32.1 g/dl (32-36); Mean Corpuscular Hemoglobin 31.1 pg (26-34); Mean Platelet Volume 10.4 fl (7.4-10.4); Monocytes Absolute Auto 0.4 K/mm3 (0.1-0.6); Monocytes Percent Auto 9.1 % (2.6-8.5); Neutrophils Absolute Auto 2.6 K/mm3 (1.3-6.7); Neutrophils Percent Auto 61.4 % (45.5-73.1); Platelet Count Result 115 k/mm3 (150-375); Red Blood Count 4.31 M/mm3 (4.2-5.4); Red Cell Distribution Width 13.1 % (11.5-14.5); White Blood Count 4.3 K/mm3 (4.5-10.0)
[2024-07-11 19:16] LABS: Alanine Aminotransferase 13 U/L (6-35); Albumin Level 3.7 g/dL (3.5-5.1); Alkaline Phosphatase 79 U/L (38-126); Anion Gap 12 mmol/L (4-12); Aspartate Amino Transferase 24 U/L (14-36); Bilirubin,Total 0.6 mg/dL (0.2-1.3); Blood Urea Nitrogen 35 mg/dL (7-17); Calcium 9.1 mg/dL (8.4-10.2); Carbon Dioxide 20 mmol/L (22-30); Chloride 107 mmol/L (98-107); Estimated Glomerular Filt Rate 25; Glucose 87 mg/dL (65-110); Potassium 4.8 mmol/L (3.4-5.0); Sodium 139 mmol/L (137-145)
--- OUTSIDE RECORDS SUMMARY | 2024-07-11 19:33 | XMS_ITS | CONTINUITY OF CARE DOCUMENT ---
Author Name benson knowles Address Unknown Organization 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
--- OUTSIDE RECORDS SUMMARY | 2024-07-11 19:33 | XMS_ITS | Data Portability ---
Author Organization [place] [facility] [place] [email or web address], Main Office Address [address] [place] [address] Assessment No assessment recorded. Plan of Treatment Reminders Order Date Submit Date Provider Last Modified By Organization Details Last Modified Time Details Appointments None recorded. Lab iron + TIBC + ferritin, serum 2023 024 [facility], [address], [address], 4 16:01:59 CBC w/ auto diff 2023 024 [email or web address] [facility], [address], [address], 4 16:49:42 TSH, serum or plasma 2023 024 [facility], [address], [address], 4 16:01:59 T4, free, serum 2023 024 [facility], [address], [address], 4 16:01:59 CMP, serum or plasma 2023 024 [facility], [address], [address], 4 16:01:59 vitamin B12 + folate, serum or blood 2023 024 [email or web address] [facility], [address] [place], [address], 16:49:43 Referral None recorded. Procedures None recorded. Surgeries None recorded. Imaging None recorded. Medication Orders amoxicillin 875 mg-potassiu m clavulanate 125 mg tablet 2022 023 [email or web address] [facility] [id number] [facility], [place], [address], 16:45:13 Patient TargetsNo targets recorded. Patient Instructions Encounter Date Encounter Id Patient Instructions Last Modified By Organization Details Last Modified Time 05/19/2023 [id number] Follow-up hypertension -atrial fibrillation -hyperlipidemia -diverticulitis-royce al calculi. Continue on current Rx give a trial some Augmentin 875-125 mg twice daily for 5-7 days. Continue on current Rx need to be set up with Nephrology with Dr. Dsouza up at [facility]. Follow-up in four months Portions of the record may have been created with voice recognition software. Occasional wrong-word or s ound-a-like substitutions may have occurred due to the inherent limitations of voice recognition software. Read the chart carefully and recognize, using context, where substitutions have occurred. Nephrology consult with Dr. Dsouza or his group up at [facility] Keep Appt: Tue 02:30 PM Swati [email or web address] Not available 05/19/2023 12:16:10 10/04/2023 [id number] Essential hypertension, paroxysmal atrial fibrillation, hypothyroidism, hyperlipidemia chronic renal failure. All clinically stable. Has had recent blood work performed by multiple other specialties. Does not need any additional blood work at this time. Will continue on current Rx follow-up in four months. FDA recommendations of a influenza, RSV, COVID, pneumococcal immunizations strongly advised. Next Appointment: 4 Months Approximate Date: 02/01/2024 Portions of the record may have been created with voice recognition software. Occasional wrong-word or s ound-a-like substitutions may have occurred due to the inherent limitations of voice recognition software. Read the chart carefully and recognize, using context, where substitutions have occurred. [email or web address] Not available 10/04/2023 15:45:55 12/20/2023 [id number] Fatigue, hypertension, atrial fibrillation, hypothyroidism, [employer], hyperlipidemia and renal calculi. Will check a CBC, serum iron studies, B12 and thyroid. Will continue on current Rx check back in two weeks. Next Appointment: 2 Weeks Approximate Date: 01/03/2024 Portions of the record may have been created with voice recognition software. Occasional wrong-word or s ound-a-like substitutions may have occurred due to the inherent limitations of voice recognition software. Read the chart carefully and recognize, using context, where substitutions have occurred. [email or web address] Not available 12/20/2023 17:07:27 02/09/2024 [id number] Essential hypertension, paroxysmal atrial fibrillation, hypothyroidism and kidney stones. Clinically stable. Is having increasing degrees with ambulatory condition manifested by ataxia as well as tendency to fall. Will set up for home involvement and PT OT and balance training. Continue on current medications. Is scheduled for procedure tomorrow with regards to her renal calculi. Follow-up in two months Additional Orders - Directives - Recommendations 1. medical therapy to see along with home health if necessary for evaluation of gait and balance training. Next Appointment: 2 Months Approximate Date: 04/09/2024 Portions of the record may have been created with voice recognition software. Occasional wrong-word or s ound-a-like substitutions may have occurred due to the inherent limitations of voice recognition software. Read the chart carefully and recognize, using context, where substitutions have occurred. [email or web address] Not available 02/09/2024 17:03:21 04/12/2024 [id number] Follow-up essent ial hypertension, hypothyroidism, hyperlipidemia, renal calculi as well as chronic renal failure. All clinically stable. No interval complaints of any new problems at this time. Is otherwise doing fine. Is being followed at [facility] for further evaluation of her renal function as well as a renal calculi. Clinically is doing well otherwise continue on current Rx and follow-up in four mo Follow Up: 4 Months Approximate Date: 08/10/2024 Portions of the record may have been created with voice recognition software. Occasional wrong-word or s ound-a-like substitutions may have occurred due to the inherent limitations of voice recognition software. Read the chart carefully and recognize, using context, where substitutions have occurred. [email or web address] Not available 04/12/2024 15:34:02 Reason for Referral None Reported. Results Created Date Observation Date Name Description Value Unit Range Abnormal Flag Note LastModifiedBy Organization Detail LastModifiedTime 05/04/2005/05/2023 CREAT ININE CLEAR ANCE W/O EGFR creatinine 1.89 mg/dL 0.60-0 .95 high Not Available [address], [address], 05/05/2023 15:31:56 05/04/2005/05/2023 CREAT ININE CLEAR ANCE W/O EGFR creatinine, 24 hour urine 0.59 g/24_ h 0.50-2 .15 normal Not Available [address], [address], 05/05/2023 15:31:56 05/04/20 23 05/05/2023 CREAT ININE CLEAR ANCE W/O EGFR body surface area 1.66 Not Available [address], [address], 05/05/2023 15:31:56 05/04/20 23 05/05/2023 CREAT ININE CLEAR ANCE W/O EGFR creatinine clearance 23 mL/mi n 75-115 low Not Available [address], [address], 05/05/2023 15:31:56 05/04/20 23 05/05/2023 CREAT ININE CLEAR ANCE W/O EGFR height feet 5 FT Not Available [address], [address], 05/05/2023 15:31:56 05/04/20 23 05/05/2023 CREAT ININE CLEAR ANCE W/O EGFR height inches 4 in Not Available [address] [place], [address], 05/05/2023 15:31:56 05/04/20 23 05/05/2023 CREAT ININE CLEAR ANCE W/O EGFR weight pounds 135 Not Available [facility] [address], [place], [address], 05/05/2023 15:31:56 05/04/2005/05/2023 PROTE IN, TOTAL , 24 HOUR URINE (W/O CREAT ININE ) protein, total, 24 HR ur 792 mg/24 _h <150 high URINE VOLUM E: 1200/ 24 Not Available [facility] [id number], [place], [address], 05/05/2023 15:31:57 05/03/20 US, [facility] [address] [address] Patien t Name: NELIA PETERSON Access ion #: [id number] Sex: F : 1935 9 Dictat ed By: Yeyo Gray Attend ing Physic alber: VINITA VIVEROS CE Orderi ng Physic alber: VINITA VIVEROS CE Exam Date: 2022 09:27 AM Exam Name: US RETROP BARRIE/RUTHIE CAIN Admitt ing Diagno sis(es ): INDICA TION: Elevat ed creati nine TECHNI QUE: Multip le real-t tonia sonogr aphic images of the kidney s and bladde r were obtain ed. COMPAR TIFFANY: None FINDIN GS: The right kidney measur es 7.0 cm. Echoge elizabeth renal parenc hyma. Cortic al thinni ng. Multip le shadow ing stones in the renal collec ting system . Cannot evalua te for hydron ephros is. The left kidney measur es 10.0 cm. Modera te hydron ephros is. Linear echoge elizabeth struct ure in the urinar y bladde r could repres ent bladde r stone versus stent. IMPRES PETRA: 1. Modera te left hydron ephros is. 2. Echoge elizabeth and atroph ic right kidney . Multip le shadow ing stones in the right renal collec ting system . 3. Linear echoge elizabeth struct ure in the urinar y bladde r, geetae r stone versus stent. Electr onical ly Signed by: Yeyo Gray at 2022 13:50: 30 PM Page [address] ([facility]) [address] [facility], [place], [address], 05/03/2023 15:34:32 05/09/20 23 05/08/2023 CT, abdom en + pelvi s, w/o contr ast No observ ation record ed. [address], [place], [address], 05/09/2023 07:00:57 07/21/19 24 07/21/2023 XR, urogr am, retro grade No observ ation record ed. [address] [address], [place], [address], 07/21/2023 14:43:12 10/13/19 24 10/13/2023 XR, osseo us surve y, compl ete No observ ation record ed. [address], [place], [address], 10/14/2023 12:21:33 11/10/19 24 11/10/2023 XR, abdom en No observ ation record ed. [address], [place], [address], 11/10/2023 15:10:13 12/02/19 24 12/02/2023 XR, abdom en No observ ation record ed. [address], [place], [address], 12/02/2023 09:36:25 12/03/19 24 12/02/2023 CT, abdom en + pelvi s, w/o contr ast No observ ation record ed. [address], [place], [address], 12/03/2023 17:04:42 12/05/19 24 12/05/2023 XR, chest , 1 view No observ ation record ed. [address], [place], [address], 12/05/2023 06:47:20 12/05/19 24 12/05/2023 NM, lung scan, perfu petra No observ ation record ed. [address], [place], [address], 12/05/2023 14:23:41 12/06/19 24 12/05/2023 US, echoc ardio gram No observ ation record ed. [address], [place], [address], 12/06/2023 10:13:48 02/10/20 24 02/10/2024 XR, abdom en No observ ation record ed. [address], [place], [address], 02/10/2024 07:46:04 04/20/20 24 04/20/2024 XR, abdom en No observ ation record ed. [email or web address] Not Available 2023 09:58:33 07/11/19 25 07/11/2024 imagi ng/di agnos tic resul t No observ ation record ed. [address], [place], [address], 07/11/2024 20:31:04 Result Notes None recorded. 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 Not Available [facility] 3 12:49:35 Acute sinusitis 98236457 Active 2021 Not Available [facility] 3 12:49:35 History of pulmonary embolus 532709879 Active 2018 Not Available [facility] 3 12:49:35 Ventricula r premature beats 97451660 Active Not Available [facility] 3 12:49:35 Transition of care 8352509309200 Active 2021 Not Available [facility] 3 12:49:36 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 Not Available [facility] 3 12:49:36 Gastroesop hageal reflux disease 802115154 Active 2020 Not Available [facility] 3 12:49:36 Renal impairment 772339096 Active 2016 Not Available [facility] 3 12:49:36 Osteoarthr itis of knee 249244969 Active Not Available [facility] 3 12:49:36 Pure hyperchole sterolemia 096633671 Active Not Available [facility] 3 12:49:36 Knee pain Active Not Available [facility] 3 12:49:36 Vitamin D deficiency 60691082 Active 2021 Not Available [facility] 3 12:49:36 Osteoarthr itis 322086915 Active Not Available [facility] 3 12:49:37 Hypothyroi dism 71181779 Active Not Available [facility] 3 12:49:37 Acute urinary tract infection 482308607 Active 2021 Not Available [facility] 3 12:49:37 Hip pain 73255609 Active Not Available [facility] 3 12:49:37 Atrial fibrillati on 28438963 Active Not Available [facility] 3 12:49:37 Carpal tunnel syndrome 98018152 Active Not Available [facility] 3 12:49:37 Pulmonary embolism 35918674 Active Not Available [facility] 3 12:49:37 Essential hypertensi on 57289230 Active Not Available [facility] 3 12:49:38 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 Not Available [facility] 3 12:49:38 Chronic congestive heart failure 67967679 Active 2021 Not Available [facility] 3 12:49:38 Kidney stone 51653348 Active 2021 Not Available [facility] 3 12:49:38 Hyperlipid emia 27055366 Active 2022 Winifred Gay CMA null, [place] [facility] 3 16:53:48 Calculus of kidney and ureter 567046753 Active 2022 Andrés Viveros MD [address], [place], [address] , [place] [facility] 3 11:26:58 Chronic renal failure 62765907 Active 2022 Queta Trivedi null, [place] [facility] 3 16:19:01 Serum creatinine above reference range 877308216 Active 2022 Queta Trivedi null, [place] [facility] 3 11:30:38 Diverticul itis 851813986 Active 2022 Andrés Viveros MD [address], [address], [place], [address] , [facility] 3 12:09:47 Fatigue 54064803 Active 2023 Andrés Viveros MD [address], [place], [address] , [facility] 4 17:00:20 Anemia 727909177 Active 2023 Andrés Viveros MD [address], [place], [address] , [facility] 4 17:07:12 Problem Notes None recorded. Procedures Surgical History None recorded. Imaging Results Imaging Date Name Status LastModified by Organization Details LastModified Time 05/03/2023 US, retroperitoneum completed [address] (Imaging) [address], [place], [address], 05/03/2023 15:34:32 05/08/2023 CT, abdomen + pelvis, w/o contrast completed [address] [address], [place], [address], 05/09/2023 07:00:57 07/21/2023 XR, urogram, retrograde completed [address] [address], [place], [address], 07/21/2023 14:43:12 10/13/2023 XR, osseous survey, complete completed [address] [address], [place], [address], 10/14/2023 12:21:33 11/10/2023 XR, abdomen completed [address] [address], [place], [address], 11/10/2023 15:10:13 12/02/2023 XR, abdomen completed [address] [address], [place], [address], 12/02/2023 09:36:25 12/02/2023 CT, abdomen + pelvis, w/o contrast completed [address] [address], [place], [address], 12/03/2023 17:04:42 12/05/2023 XR, chest, 1 view completed [address] [address], [place], [address], 12/05/2023 06:47:20 12/05/2023 NM, lung scan, perfusion completed [address] [address], [place], [address], 12/05/2023 14:23:41 12/05/2023 US, echocardiogram completed [address] [address], [place], [address], 12/06/2023 10:13:48 02/10/2024 XR, abdomen completed [address], [address], 02/10/2024 07:46:04 04/20/2024 XR, abdomen completed [email or web address] Information n ot available 04/20/2024 09:58:33 07/11/2024 imaging/diagnostic result active [address] [facility] [address], [place], [address], 07/11/2024 20:31:04 Procedure Notes None recorded. Medical Equipment None Reported. Allergies Allergen ID Allergen Name Allergen Category Reaction Reaction Severity Criticality Documentation Date Start Date Code Code System Note Provider Name and Address Organization Details Recorded Time 00238 Lovenox medicatio n Not available Not available Not available 08/04/2022 00296 6 RxNorm Throm bocyt openi a Not Available [facility] 3 12:56:18 95672 heparin medicatio n Not available Not available Not available 08/04/2022 5224 RxNorm Throm bocyt openi a Not Available [facility] 3 12:56:18 45930 codeine medicatio n nausea Not available Not available 08/04/2022 2670 RxNorm Not Available [facility] 3 12:56:18 Medications Name Sig Start Date Stop Date Status Note LastModified by Organization Details LastModified Time losartan 50 mg tablet TAKE 1/2 (ONE-HALF ) TABLET BY MOUTH ONCE DAILY 10/06 completed Not Available Not Available Not Available amoxicillin 500 mg capsule Take 1 capsule 3 times a day by oral route for 10 days. active Not Available Not Available No t Available bupropion HCl SR 150 mg tablet,12 hr sustained-r elease Take 1 tablet by mouth twice daily active Not Available Not Available No t Available Xanax 0.5 mg tablet Take 1 tablet as needed by oral route. 03/20 completed Not Available Not Available Not Available Celexa 10 mg tablet Take 1 tablet every day by oral route. active Not Available Not Available No t Available Vitamin C 500 mg tablet Take 1 tablet every day by oral route. 2021 active Not Available Not Available Not Avai lable Pacerone 200 mg tablet TAKE 1 TABLET BY MOUTH ONCE DAILY 06/09 completed Not Available Not Available Not Available Iron (ferrous sulfate) 325 mg (65 mg iron) tablet Take 1 tablet by mouth twice daily 2023 active Not Available Not Available Not Avai lable azithromyci n 250 mg tablet TAKE 2 TABLETS (500 MG) BY ORAL ROUTE ONCE DAILY FOR 1 DAY THEN 1 TABLET (250 MG) BY ORAL ROUTE ONCE DAILY FOR 4 DAYS 06/08 completed Not Available Not Available Not Available benzonatate 200 mg capsule Take 1 capsule 3 times a day by oral route. active Not Available Not Available No t Available sulfamethox azole 400 mg-trimetho prim 80 mg tablet Take 1 tablet every 12 hours by oral route. 04/05 completed Not Available Not Available Not Available hydrocodone 5 mg-acetamin ophen 325 mg tablet TAKE 1 TO 2 TABLETS BY MOUTH EVERY 6 HOURS NEEDED FOR PAIN active Not Available Not Available No t Available sotalol 80 mg tablet TAKE 1/2 (ONE-HALF ) TABLET BY MOUTH ONCE DAILY active Not Available Not Available No t Available fluorouraci l 5 % topical cream APPLY TOPICALLY TO NOSE TWICE DAILY FOR 2 WEEKS, THEN STOP FOR 2 WEEKS. THEN APPLY AGAIN FOR 2 MORE WEEKS active Not Available Not Available No t Available promethazin e 6.25 mg-codeine 10 mg/5 mL syrup Take 5 ML EVERY 6 HOURS by oral route PRN for cough active Not Available Not Available No t Available amlodipine 5 mg tablet Take 1 tablet every day by oral route. 02/13 completed Not Available Not Available Not Available sulfamethox azole 800 mg-trimetho prim 160 mg tablet TAKE 1 TABLET BY MOUTH EVERY 12 HOURS 12/19 completed Not Available Not Available Not Available aspirin 81 mg tablet,swetha yed release Take 1 tablet every day by oral route. 2012 active Not Available Not Available Not Avai lable tramadol 50 mg tablet TAKE 1 TABLET BY MOUTH EVERY 6 HOURS active Not Available Not Available No t Available bupropion HCl SR 100 mg tablet,12 hr sustained-r elease TAKE 1 TABLET BY MOUTH TWICE DAILY 02/11 completed Not Available Not Available Not Available pravastatin 80 mg tablet Take 1 tablet by mouth once daily active Not Available Not Available No t Available lorazepam 0.5 mg tablet Take 1 tablet 3 times a day by oral route as needed. active Not Available Not Available No t Available amiodarone 400 mg tablet half tablet daily active Not Available Not Available No t Available trazodone 100 mg tablet Take 1 tablet every day by oral route at bedtime. 09/20 completed Not Available Not Available Not Available imiquimod 5 % topical cream packet APPLY CREAM EXTERNALL Y TO AFFECTED AREA ON LEFT LOWER LEG AND NOSE AT BEDTIME TUESDAY THROUGH TUESDAY, TAKING WEEKENDS OFF, FOR 4 WEEKS (WASH OFF IN THE MORNING) active Not Available Not Available No t Available Flagyl 500 mg tablet Take 1 tablet every 8 hours by oral route. active Not Available Not Available No t Available benzonatate 100 mg capsule Take 1 capsule 3 times a day by oral route. active Not Available Not Available No t Available levothyroxi ne 50 mcg tablet Take 1 tablet by mouth once daily 2023 active Not Available Not Available Not Avai lable hydrocodone 7.5 mg-acetamin ophen 325 mg tablet One every six hours PRN for pain active Not Available Not Available No t Available Lasix 20 mg tablet Take 1 tablet every day by oral route. 08/06 completed Not Available Not Available Not Available cephalexin 500 mg capsule TAKE 1 CAPSULE BY MOUTH EVERY 8 HOURS active Not Available Not Available No t Available pantoprazol e 40 mg tablet,swetha yed release Take 1 tablet every day by oral route. 06/09 completed Not Available Not Available Not Available Neurontin 100 mg capsule Take 1 capsule 3 times a day by oral route. 09/20 completed Not Available Not Available Not Available clotrimazol e-betametha sone 1 %-0.05 % topical cream active Not Available Not Available Not Available warfarin 5 mg tablet Take 1 tablet every day by oral route. 2014 active Not Available Not Available Not Avai lable losartan 25 mg tablet TAKE 1 TABLET BY MOUTH ONCE DAILY 02/09 completed Not Available Not Available Not Available metoprolol tartrate 50 mg tablet TAKE 1 TABLET BY MOUTH TWICE DAILY 02/09 completed Not Available Not Available Not Available Valtrex 1 gram tablet Take 1 tablet 3 times a day by oral route. 09/20 completed Not Available Not Available Not Available docusate sodium 100 mg capsule Take 1 capsule every day by oral route. 02/13 completed Not Available Not Available Not Available lisinopril 5 mg tablet active Not Available Not Available Not Available mupirocin 2 % topical ointment 08/18 completed Not Available Not Available Not Available midodrine 2.5 mg tablet TAKE 1 TABLET BY MOUTH THREE TIMES DAILY active Not Available Not Available No t Available levofloxaci n 500 mg tablet Take 1 tablet every 24 hours by oral route. active Not Available Not Available No t Available zolpidem 10 mg tablet active Not Available Not Available No t Available methylpredn isolone 4 mg tablets in a dose pack As directed 03/20 completed Not Available Not Available Not Available hydrocodone 10 mg-chlorphe niramine 8 mg/5 mL oral susp extend.rel 12hr active Not Available Not Available Not Available Lomotil 2.5 mg-0.025 mg tablet Take by oral route one tablet q 4 hours prn for diarrhea 09/20 completed Not Available Not Available Not Available hydroxyzine HCl 10 mg tablet active Not Available Not Available Not Available ondansetron 4 mg disintegrat ing tablet DISSOLVE 1 TABLET IN MOUTH IN THE EVENING active Not Available Not Available No t Available cefdinir 300 mg capsule TAKE 1 CAPSULE BY MOUTH ONCE DAILY 04/05 completed Not Available Not Available Not Available losartan 100 mg tablet Take 1 tablet by mouth once daily active Not Available Not Available No t Available Ambien 5 mg tablet Take 1 tablet every day by oral route at bedtime. 03/20 completed Not Available Not Available Not Available docusate sodium 100 mg tablet Take 1 tablet every day by oral route. 2021 active Not Available Not Available Not Avai lable diazepam 5 mg tablet TAKE ONE TABLET BY MOUTH ONE HOUR PRIOR TO SCAN ON 04 27 MAY REPEAT ONE TIME NEEDED ON ARRIVAL TO FACILITY 02/13 completed Not Available Not Available Not Available amoxicillin 875 mg-potassiu m clavulanate 125 mg tablet TAKE 1 TABLET BY MOUTH EVERY 12 HOURS 12/19 completed Not Available Not Available Not Available amoxicillin 500 mg-potassiu m clavulanate 125 mg tablet TAKE 1 TABLET BY MOUTH EVERY 12 HOURS 05/19 completed Not Available Not Available Not Available cholecalcif cristóbal (vitamin D3) 25 mcg (1,000 unit) capsule Take 1 capsule every day by oral route. 08/18 completed Not Available Not Available Not Available metoprolol tartrate 25 mg tablet TAKE 1/2 (ONE-HALF ) TABLET BY MOUTH TWICE DAILY 10/06 completed Not Available Not Available Not Available nitrofurant oin monohydrate /macrocryst als 100 mg capsule TAKE 1 CAPSULE BY MOUTH EVERY 12 HOURS 11/30 completed Not Available Not Available Not Available duloxetine 60 mg capsule,del ayed release active Not Available Not Available Not Available fondaparinu x 7.5 mg/0.6 mL subcutaneou s solution syringe Inject 0.6 mL every day by subcutane ous route. 2014 active Not Available Not Available Not Avai lable Vitamin D3 50 mcg once daily 05/19 completed Not Available Not Available Not Available budesonide 04/04 completed Not Available Not Available Not Available Vitamin D2 2000 IU daily 2012 active Not Available Not Available Not Avai lable ergocalcife rol (vitamin D2) 50 mcg (2,000 unit) tablet Take 1 tablet every day by oral route. active Not Available Not Available No t Available Eliquis 5 mg tablet TAKE 1 TABLET BY MOUTH EVERY 12 HOURS 10/14 completed Not Available Not Available Not Available Eliquis 2.5 mg tablet TAKE 1 TABLET BY MOUTH TWICE DAILY active Not Available Not Available No t Available Belsomra 5 mg tablet Take 1 tablet every day by oral route at bedtime. 06/28 completed Not Available Not Available Not Available Belsomra 10 mg tablet Take 1 tablet every day by oral route at bedtime. 06/09 completed Not Available Not Available Not Available Robitussin Cough-Chest Etienne DM 2014 active Not Available Not Available Not Avai lable metoprolol tartrate 75 mg tablet TAKE 1 TABLET BY MOUTH TWICE DAILY 09/28 completed Not Available Not Available Not Available Vitals Date Recorded Body height Body mass index (BMI) Body weight Heart rate Body temperature Oxygen saturation Oxygen saturation in Arterial blood by Pulse oximetry Systolic blood pressure Diastolic blood pressure Provider Name and Address Organization Details Last Updated DateTime 3 160.02 cm 24.6 kg/m2 67032.3 4 g 72 /min 97 [degF] 96 % 96 % 142 mm[Hg] 80 mm[Hg] Queta Tirvedi [place] [facility] [place] [facility] 3 11:53:07 Date Recorded Body height Body mass index (BMI) Body weight Heart rate Body temperature Oxygen saturation Oxygen saturation in Arterial blood by Pulse oximetry Systolic blood pressure Diastolic blood pressure Provider Name and Address Organization Details Last Updated DateTime 4 157.48 cm 25.6 kg/m2 16964.9 3 g 61 /min 97.3 [degF] 99 % 99 % 128 mm[Hg] 82 mm[Hg] CLAUDIA Doty [facility] 4 15:13:02 Date Recorded Body height Body mass index (BMI) Body weight Heart rate Body temperature Oxygen saturation Oxygen saturation in Arterial blood by Pulse oximetry Systolic blood pressure Diastolic blood pressure Provider Name and Address Organization Details Last Updated DateTime 4 157.48 cm 24.3 kg/m2 91822.7 9 g 59 /min 97 [degF] 99 % 99 % 108 mm[Hg] 62 mm[Hg] Queta Farooq [facility] 4 16:45:00 Date Recorded Body height Body mass index (BMI) Body weight Heart rate Body temperature Oxygen saturation Oxygen saturation in Arterial blood by Pulse oximetry Systolic blood pressure Diastolic blood pressure Provider Name and Address Organization Details Last Updated DateTime 4 157.48 cm 23.8 kg/m2 08479.0 1 g 62 /min 97.5 [degF] 97 % 97 % 118 mm[Hg] 86 mm[Hg] CLAUDIA Doty [facility] 4 16:35:20 Date Recorded Body height Body mass index (BMI) Body weight Heart rate Body temperature Oxygen saturation Oxygen saturation in Arterial blood by Pulse oximetry Systolic blood pressure Diastolic blood pressure Provider Name and Address Organization Details Last Updated DateTime 4 157.48 cm 23.2 kg/m2 55168.2 3 g 79 /min 97 [degF] 69 % 69 % 120 mm[Hg] 86 mm[Hg] CLAUDIA Doty [facility] 4 15:11:48 Social History Question Answer Notes LastModified by Organizat ion Details LastModified Time Are You Blind Or Do You Have Difficulty Seeing? No [id number] Information not available 08/04/2022 In The 14 Days Before Symptom Onset, Have You Had Close Contact With A Laboratory-confirme d COVID-19 While That Case Was Ill? No [id number] Information not available 08/04/2022 In The 14 Days Before Symptom Onset, Have You Had Close Contact With A Person Who Is Under Investigation For COVID-19 While That Person Was Ill? No [id number] Information not available 08/04/2022 Are You Deaf Or Do You Have Serious Difficulty Hearing? No [id number] 26 Information not available 08/04/2022 Have You Recently Traveled Abroad? No [id number] 26 Information not available 08/04/2022 Sex: Unknown Functional Status Question Answer Note LastModified by Organizat ion Details LastModified Time Do you have difficulty walking or climbing stairs? No [id number] Information not available 08/04/2022 Do you have transportation difficulties? No [id number] Information not available 08/04/2022 Are you able to walk? YESWOREST [id number].[id number] Information not available 08/04/2022 Do you have difficulty doing errands alone? No [id number] Information not available 08/04/2022 Are you able to care for yourself? Yes [id number] Information not available 08/04/2022 Do you have difficulty dressing or bathing? No [id number] Information not available 08/04/2022 Mental Status Question Answer Note LastModified by Organizat ion Details LastModified Time Do you have difficulty concentrating, remembering or making decisions? No [id number] Information not available 08/04/2022 Family History Nothing Reported Notes:Mother 74 from HD and HTN Father 76 from ASHD and HTN No brothers or sisters Medical History Condition Response NERVE DISEASE N BLINDNESS N RHEUMATIC FEVER N KIDNEY STONES N BLADDER PROBLEMS N MRSA N OTHER # 1 N POLIO N LUNG DISEASE/DISORDER N HISTORY OF DRUG ABUSE N RADIATION / CHEMOTHERAPY N COPD N Other # 2 N BLOOD DISEASES N EAR OR HEARING PROBLEMS N MUMPS N SHINGLES N BOWEL PROBLEMS N DEPRESSION (INCLUDING POST ) N STROKE/TIA N ULCERS N BENIGN PROSTATIC HYPERPLASIA N MEASLES N HYPOTENSION N MYOCARDIAL INFARCTION N OBESITY N GERD/NAUSEA N ANEURYSM N URINARY/BLADDER/KIDNEY PROBLEMS N CORONARY ARTERY DISEASE (CAD) N ADDICTION CONCERNS N ENDOMETRIOSIS N Impotence N USE OF BLOOD THINNERS N SKIN PROBLEMS N GASTROINTESTINAL DISORDER N PERIPHERAL VASCULAR DISEASE N MUSCLE,JOINT OR BONE PROBLEMS N GASTROINTESTINAL BLEEDING N BLOOD CLOTS N ASTHMA N CATARACTS N ERECTILE DYSFUNCTION N VARICOSITIES N GI PROBLEMS N Low Testosterone N INFERTILITY N AIDS/HIV N CHEMOTHERAPY / RADIATION N LIVER DISEASE N MALE HYPOGONADISM N HYPERTENSION Y Deficiency N TOURETTE'S N ANXIETY DISORDER N BLOOD TRANSFUSION N ANEMIA/BLOOD DISORDER N CHRONIC EAR INFECTIONS N BRONCHITIS N TUBERCULOSIS N GLAUCOMA N FOOT PROBLEM N DIVERTICULITIS N CHICKENPOX N SLEEP APNEA N INFECTIOUS DISEASE N HEART ARRHYTHMIA N PROSTATE N INSOMNIA N HIGH CHOLESTEROL / HYPERLIPIDEMIA Y HYPERTHYROIDISM N EYE PROBLEMS N EDEMA N CHRONIC PAIN SYNDROME N HYPOTHYROIDISM Y CAROTID BLOCKAGE N CONSTIPATION N BACK / NECK PROBLEMS N HAVE YOU BEEN HOSPITALIZED OR SEEN IN [facility] IN THE PAST YEAR ? N ATHEROSCLEROSIS N BREAST PROBLEMS N DIALYSIS N ECZEMA N OSTEOPOROSIS N ARTHRITIS N NO SIGNIFICANT PAST MEDICAL HISTORY N APPENDICITIS N DIABETES, TYPE N BAD TEETH N ENT N HEARTBURN / REFLUX N AFIB N AUTISM SPECTRUM DISORDER (ASD) N HEPATITIS / LIVER DISEASE N GOUT N SLEEP DISORDER N ALZHEIMER'S DISEASE N Brain Problems N HERPES N DEMENTIA N HEADACHES/MIGRAINES N SEIZURES/EPILEPSY N VASCULAR DISEASE N PACEMAKER N Blood Disorder N DIZZINESS N HEART DISEASE/HEART PROBLEMS N KIDNEY DISEASE N MULTIPLE SCLEROSIS N CARDIAC ARRHYTHMIA N CANCER: SPECIFY N ATRIAL FIBRILLATION N Gall Stones N PULMONARY EMBOLISM Y AUTOIMMUNE DISEASE N Gynecological HistoryNo gynecological history recorded. Obstetrics History GPAL:G 0 P 0 0 0 0 Immunizations Vaccine Type Date Status Note Provider Nam e and Address Organization Details Recorded Time Influenza, high-dose, quadrivalent, PF 3 completed Andrés Viveros MD [address] [place] [address], [address], [address], [facility] 04/05/2023 16:20:01 Influenza, split virus, trivalent, preservative 3 completed Not Available [facility] 08/04/2022 12:56:07 SARS-COV-2 (COVID-19) vaccine, UNSPECIFIED 2 completed Not Available [facility] 08/04/2022 12:56:07 influenza, unspecified formulation 2 completed Not Available [facility] 08/04/2022 12:56:07 SARS-COV-2 (COVID-19) vaccine, UNSPECIFIED 2 completed Not Available [facility] 08/04/2022 12:56:07 Influenza, split virus, quadrivalent, preservative 1 completed Not Available [facility] 08/04/2022 12:56:07 COVID-19, mRNA, LNP-S, PF, 100 mcg/0.5mL dose or 50 mcg/0.25mL dose 1 completed Not Available [facility] 08/04/2022 12:56:07 SARS-COV-2 (COVID-19) vaccine, UNSPECIFIED 1 completed Not Available [facility] 08/04/2022 12:56:08 COVID-19, mRNA, LNP-S, PF, 30 mcg/0.3 mL dose 1 completed Not Available [facility] 08/04/2022 12:56:08 Influenza, high-dose, quadrivalent, PF 0 completed Not Available [facility] 08/04/2022 12:56:08 Influenza, high-dose, trivalent, PF 8 completed Not Available [facility] 08/04/2022 12:56:08 Influenza, high-dose, trivalent, PF 7 completed Not Available [facility] 08/04/2022 12:56:08 Pneumococcal conjugate PCV 13 5 completed Not Available [facility] 08/04/2022 12:56:09 Influenza, split virus, quadrivalent, preservative 5 completed Not Available [facility] 08/04/2022 12:56:09 Past Encounters Encounter ID Performer Location Encounter Start Date Encounter Closed Date Diagnosis/Indication Diagnosis SNOMED-CT Code Diagnosis ICD10 Code Diagnosis Note [id number] [facility] [place] [facility] [id number] [place] [address] 09/19/2020 00:00:00 09/19/2020 15:10:48 [id number] [facility] Internal Med [place] [facility] [address] [place] [address] 10/17/2020 00:00:00 10/17/2020 11:40:53 [id number] [facility] Internal [facility] [place] [address] [place] [address] y , [place] [address] 02/13/2021 00:00:00 02/13/2021 15:44:15 [id number] [facility] Internal [facility] [place] [address] [place] [address] y , [place] [address] 06/09/2021 00:00:00 06/09/2021 16:59:09 [id number] [facility] Internal [facility] [place] [address] [place] [address] y , [place] [address] 08/18/2021 00:00:00 08/18/2021 15:57:20 [id number] [facility] Internal [facility] [place] [address] [place] [address] y , [place] [address] 09/01/2021 00:00:00 09/01/2021 14:33:36 [id number] [facility] Internal [facility] [place] [address] [place] [address] y , [place] [address] 10/06/2021 00:00:00 10/06/2021 12:10:21 [id number] [facility] Internal [facility] [place] [address] [place] [address] y , [place] [address] 02/09/2022 00:00:00 02/09/2022 11:59:16 [id number] [facility] Internal [facility] [place] [address] [place] [address] y , [place] [address] 06/08/2022 00:00:00 06/08/2022 12:06:16 [id number] Andrés Viveros MD [facility] Internal Med [place] [address] [place] [address] y , [place] [address] 08/06/2022 10:58:58 08/06/2022 11:36:23 Atrial fibrillation 76022027 I48.91 Pure hypercholesterolemia 563532645 E78.00 Essential hypertension 09198392 I10 Calculus o f kidney and ureter 365085440 N20.2 [id number] Andrés Viveros MD [facility] Internal Med [place] [address] [place] [address] [place] [address] 09/28/2022 14:26:32 09/28/2022 14:58:34 Essential hypertension 01417201 I10 Atrial fibrillation 4943 6004 I48.91 Hyperlipidemia 18007711 E78.5 Hypothyroidism 97209927 E03.9 [id number] Andrés Viveros MD [facility] Internal [facility] [place] [address] [place] [address] [place] [address] 11/30/2022 14:33:09 11/30/2022 15:13:35 Essential hypertension 19556430 I10 Atrial fibrillation 4943 6004 I48.91 Hyperlipidemia 47431849 E78.5 Hypothyroidism 76147834 E03.9 [id number] Andrés Viveros MD [facility] Internal Med [place] [address] [place] [address] [place] [address] 04/05/2023 15:24:54 04/05/2023 16:29:17 Administration of influenza vaccine 58121099 Z23 Atrial fibrillation 4943 6004 I48.91 Essential hypertension 66591797 I10 Hypothyroidism 47374248 E03.9 Hyperlipidemia 38163486 E78.5 Vitamin D deficiency 347 67363 E55.9 [id number] Andrés Viveros MD [facility] Internal Med [facility] 24 [address] [facility] 24 [place] [address] 05/19/2023 11:06:09 05/19/2023 12:17:21 Essential hypertension 52908229 I10 Atrial fibrillation 4943 6004 I48.91 Pure hypercholesterolemia 608154400 E78.00 Diverticulitis 511066084 K57.92 Kidney stone 87568268 N2 0.0 [id number] Andrés Viveros MD [facility] Internal [facility] [place] [address] [place] [address] [place] [address] 10/04/2023 15:02:42 10/04/2023 15:54:43 Atrial fibrillation 67660468 I48.91 Chronic renal failure 90 348433 N18.9 Essential hypertension 20531041 I10 Hypothyroidism 29352838 E03.9 Hyperlipidemia 61509325 E78.5 [id number] Andrés Viveros MD [facility] Internal Med [place] [address] [place] [address] [place] [address] 12/20/2023 16:35:50 12/20/2023 17:11:28 Fatigue 63915013 R53.83 Essential hypertension 70419976 I10 Atrial fibrillation 4943 6004 I48.91 Hypothyroidism 12940314 E03.9 Hyperlipidemia 84412828 E78.5 Kidney stone 74466280 N2 0.0 Anemia 572519552 D64.9 [id number] Andrés Viveros MD [facility] Internal Med [place] [address] [place] [address] [place] [address] 02/09/2024 16:15:53 02/09/2024 17:08:26 Atrial fibrillation 80066864 I48.91 Essential hypertension 88432555 I10 Hypothyroidism 81407933 E03.9 Kidney stone 51693487 N2 0.0 [id number] Andrés Viveros MD [facility] Internal Med [place] [address] [place] [address] [place] [address] 04/12/2024 14:58:58 04/12/2024 16:01:54 Essential hypertension 02150626 I10 Hypothyroidism 56797101 E03.9 Hyperlipidemia 97008367 E78.5 Kidney stone 73879599 N2 0.0 Chronic renal failure 90 653230 N18.9 Health Concerns Section Related Observation LastModified by Organization Detai ls LastModified Time None Recorded Concern Status LastModified by Organization Details LastModified Time None Recorded Advance Directives Directive None Recorded Payers Encounter Date Sequence Insurance Name Policy Number Policy Patel Covered Member ID Patel Member ID Guarantor Name 05/19/2023 1 [employer] (MEDICARE REPLACEMENT PPO) [id number] Nelia Peterson [id number] Nelia Peterson 10/04/2023 1 [employer] (MEDICARE REPLACEMENT PPO) [id number] Nelia Peterson [id number] Nelia Peterson 12/20/2023 1 [employer] (MEDICARE REPLACEMENT PPO) [id number] Nelia Peterson [id number] Nelia Peterson 02/09/2024 1 [employer] (MEDICARE REPLACEMENT PPO) [id number] Nelia Peterson [id number] Nelia Peterson 04/12/2024 1 [employer] (MEDICARE REPLACEMENT PPO) [id number] Nelia Peterson [id number] Nelia Peterson Notes Date Note Type Note Provider Name and Address Organization Details Recorded Time 05/19/20 23 text/htm l Patient Name: Nelia PetersonDate Of Service: May ( 05.19.2023 ): 1935 Age: 87 There has been approximately a 4 lb weight gain since 04/05/2023. This represents approximately a 3.0% change in weight. Weight change attributable to lifestyle changes. Vital Signs:Blood Pressure: Sitting Rt. Arm 142/80Pulse: Sitting 72 /min and RegularRespiratory Rate: 12Height 63 in or 1.6 mWeight 139 lb or 63.0 kgBMI 24.6Temperature: 97 F or 36.1 CPulse Oximetry: 96 % at rest on no oxygen Chief Complaint: Addressed in HPI Problems or conditions discussed in the HPI were the only ones reviewed during the encounter.Only social and family history addressed in the HPI were reviewed during this encounter. Attendant(s): NoneConstitutional and Systemic Symptoms:none Medication Reconciliation: from medication list. [id number]: CT cervical spine from demonstrates severe cervical spondylolysis with chronic appearing T11 compression fracture with 20% anterior vertebral height loss. Multinodular rqgwbd4910/29/2022: CT scan of the abdomen pelvis revealed severe left hydronephrosis with left internal ureteral stent in expected position. 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 Moderate atrophy of the right kidney is [id number]: Renal ultrasound showed moderate left hydronephrosis. Echogenic changes noted in the right atrophic kidney likely representing multiple stones.05-09-2023: CT scan of the abdomen reviewed acute sigmoid diverticulitis with no abscess or free air. Large start corn calculi is noted of the right kidney. Moderate to severe left hydronephrosis with left ureteral stent in place. Small nonobstructing left lower pole renal calculus stones. History of Present Illness #1. Essential Hypertension: Stage: Stage I Interval Neurological Complaints no headaches, dizziness and weakness. No shortness of breath, orthopnea or cardiovascular symptoms. No other symptoms related to end organ damage. Pressure has been under fair control. Currently normal. No other end organ symptoms or findings. Therapy reviewed regarding management of hypertension and includes salt restriction and Sotalol Hydrochloride. #2. Atrial Fibrillation: Type: Persistent with recurrent episodes lasting longer than 7 days. Further classification: Lone atrial fibrillation. Associated history of essential hypertension. No attending hx of any shortness of breath, palpitations, syncopal or neurological symptoms. Current medications: Midodrine Hcl and Sotalol Hydrochloride. Rate control: controlled ventricular response [id number] Criteria: Age > 75 and and considered moderate risk for embolic phenomenon. Anticoagulation: Eliquis #3. Type II Hypercholesterolaemia: Currently taking medication and tolerating well. No interval complaints of any muscle pain or arthralgia. No significant liver changes with medications. Last lipid panel: excellent control. Therapy reviewed regarding treatment of cholesterol management and include diet and Pravachol. #4. Diverticulitis recently in the hospital. Is finishing up in what appears to be Augmentin. Has had considerable improvement but still has some residual tenderness on examination. Will continue for another five days of Augmentin therapy.: #5. Renal Calculi: History of left sided renal calculi. No interval complaints of any flank pain, nausea, vomiting, or gross hematuria. No other urinary track symptoms or signs of urinary infection.Medication List Reviewed and Reconciled 05/19/2023Sotalol Hydrochloride 80 MG TABLET One Twice AdayDocusate Sodium And Senna 100MG Once A DayVitamin D 50 MG Once DailySynthroid 0.05 MG One Daily For ThyroidPravachol 80 MG One Daily Fro CholesterolTramadol Hydrochloride 50 MG (TABLET - ORAL) One Q 8 Hours As Needed Back PainVitamin C 500 MG Once DailyFerrous Sulfate 325 MG One Twice A DayEliquis 2.5 MG TABLET, FILM COATED One Twice A DayWellbutrin 150 MG (TABLET, EXTENDED RELEASE - ORAL) One Twice A DayMidodrine Hcl 2.5 MG One Three Times A DayADRs List Reviewed 05/19/2023Heparin ThrombocytopeniaVaccination and Whxvfngvyjpv8379-60 Dvgoxxwrt6115-48 Covid Booster Lqxglhe4682-35 Covid Utxirdm9956-45 Covid Fqgswe7249-99 Prevnar 13 Bi7095-33 PneumovaxSurgical HistoryPacemaker, Rt. 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 HistoryMother 74 from ASHD and HTNFather 76 from ASHD and HTNNo brothers or sisters TEST RESULT RANGE UNITSCREATININE CLEARANCE W/O EGFR Date: 05/04/2023REATININE 1.89 0.60-0.95 MG/DLCREATININE CLEARANCE 23 75-115 ML/MINPROTEIN, TOTAL, 24 HOUR URINE (W/O CREATININE) Date: 05/04/2023ROTEIN, TOTAL, 24 HR UR 792 <150 MG/24 HCBC (INCLUDES DIFF/PLT) Date: 04/14/2023WHITE BLOOD CELL COUNT 5.0 3.8-10.8 THOUSAND/ULHEMOGLOBIN 13.8 11.7-15.5 G/DLHEMATOCRIT 42.0 35.0-45.0 %PLATELET COUNT 136 140-400 THOUSAND/ULCOMPREHENSIVE METABOLIC PANEL Date: 04/14/2023LUCOSE 71 65-99 MG/DLUREA NITROGEN (BUN) 48 7-25 MG/DLCREATININE 2.04 0.60-0.95 MG/DLEGFR 23 > OR = 60 ML/MIN/1.68V4HVM/CREATININE RATIO 24 6-22 (CALC)POTASSIUM 4.4 3.5-5.3 MMOL/LBILIRUBIN, TOTAL 0.5 0.2-1.2 MG/DLALKALINE PHOSPHATASE 77 37-153 U/LAST 15 10-35 U/LALT 8 6-29 U/L Andrés Viveros MD [address] [facility], [address], [place], [address], [facility] 05/19/2023 12:16:25 10/04/19 24 text/htm l Patient Name: Nelia Mcmullen Of Service: Tuesday ( 10.04.2023 ): 1935 Age: 88 Vital Signs:Blood Pressure: Sitting Rt. Arm 128/82Pulse: Sitting 61 /min and RegularRespiratory Rate: 12Height 62 in or 1.6 mWeight 140 lb or 63.5 kgBMI 25.6Temperature: 97.3 F or 36.3 CPulse Oximetry: 99 % at rest on no oxygen Chief Complaint: Addressed in HPI Problems or conditions discussed in the HPI were the only ones reviewed during the encounter.Only social and family history addressed in the HPI were reviewed during this encounter. Attendant(s): NoneConstitutional and Systemic Symptoms:none Medication Reconciliation: from medication list. [id number]: CT cervical spine from demonstrates severe cervical spondylolysis with chronic appearing T11 compression fracture with 20% anterior vertebral height loss. Multinodular goiter 10/29/2022: CT scan of the abdomen pelvis revealed severe left hydronephrosis with left internal ureteral stent in expected position. 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 Moderate atrophy of the right kidney is noted 05-03-2023: Renal ultrasound showed moderate left hydronephrosis. Echogenic changes noted in the right atrophic kidney likely representing multiple stones. 05-09-2023: CT scan of the abdomen reviewed acute sigmoid diverticulitis with no abscess or free air. Large start corn calculi is noted of the right kidney. Moderate to severe left hydronephrosis with left ureteral stent in place. Small nonobstructing left lower pole renal calculus stones. History of Present Illness #1. Essential Hypertension: Stage: Stage I Interval Neurological Complaints no headaches, dizziness, weakness, visual changes, ataxia, aphasia and apraxia. No shortness of breath, orthopnea or cardiovascular symptoms. No other symptoms related to end organ damage. Pressure has been under excellent control. Currently normal. No other end organ symptoms or findings. Therapy reviewed regarding management of hypertension and includes salt restriction and Sotalol Hydrochloride. #2. Type II Hypercholesterolaemia: Currently taking medication and tolerating well. No interval complaints of any muscle pain or arthralgia. No significant liver changes with medications. Last lipid panel: fair control. Therapy reviewed regarding treatment of cholesterol management and include diet and Pravachol. #3. Atrial Fibrillation: Type: Paroxysmal with recurrent episodes lasting less than 7 days. Further classification: Non-valvular. Associated history of HTN. No attending hx of any shortness of breath, palpitations, syncopal or neurological symptoms. Current medications: Eliquis and Sotalol Hydrochloride. Rate control: controlled ventricular response [id number] Criteria: hypertension, Age > 75 and and considered moderate risk for embolic phenomenon. Anticoagulation: Eliquis #4. Hx of hypothyroidism currently stable. Heat intolerance: no Fatigue: no Weight gain: no Difficulty concentrating: no Muscle Symptoms: none Skin Texture: normal Skin Color: normal Currently taking synthroid. #5. History of chronic renal failure currently doing well. Currently is followed by a earring maker. Stage: CKD-3b. Albumin Stage: A1. There has been no change in urine output or color. No fever or chills. Active Medication ListSotalol Hydrochloride 80 MG TABLET One Twice AdayDocusate Sodium And Senna 100MG Once A DayVitamin D 50 MG Once DailySynthroid 0.05 MG One Daily For ThyroidPravachol 80 MG One Daily Fro CholesterolTramadol Hydrochloride 50 MG (TABLET - ORAL) One Q 8 Hours As Needed Back PainVitamin C 500 MG Once DailyFerrous Sulfate 325 MG One Twice A DayEliquis 2.5 MG TABLET, FILM COATED One Twice A DayWellbutrin 150 MG (TABLET, EXTENDED RELEASE - ORAL) One Twice A DayMidodrine Hcl 2.5 MG One Three Times A Day Adverse Drug Reactions ReviewedHeparin Thrombocytopenia Vaccination and Tcpgldsoorha1099-06 Wiwbwuesx2846-84 Covid Booster Kaizwlu8776-60 Covid Eftfgas2495-26 Covid Zkzmbh1540-07 Prevnar 13 Ze4556-51 Pneumovax Surgical Wpiegjj4658-24 Wbngxamnn6035-65 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 This represents approximately a 5.0% change in weight. Weight change attributable to lifestyle changes. Vital Signs:Blood Pressure: Sitting Rt. Arm 108/62Pulse: Sitting 59 /min and RegularRespiratory Rate: 14Height 62 in or 1.6 mWeight 133 lb or 60.3 kgBMI 24.3Temperature: 97 F or 36.1 CPulse Oximetry: 99 % at rest on no oxygen Chief Complaint: Addressed in HPI Problems or conditions discussed in the HPI were the only ones reviewed during the encounter.Only social and family history addressed in the HPI were reviewed during this encounter. Attendant(s): CaregiverConstitutional and Systemic Symptoms:none Medication Reconciliation: from medication list. [id number]: CT cervical spine from demonstrates severe cervical spondylolysis with chronic appearing T11 compression fracture with 20% anterior vertebral height loss. Multinodular goiter 10/29/2022: CT scan of the abdomen pelvis revealed severe left hydronephrosis with left internal ureteral stent in expected position. 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 Moderate atrophy of the right kidney is noted 05-03-2023: Renal ultrasound showed moderate left hydronephrosis. Echogenic changes noted in the right atrophic kidney likely representing multiple stones. 05-09-2023: CT scan of the abdomen reviewed acute sigmoid diverticulitis with no abscess or free air. Large start corn calculi is noted of the right kidney. Moderate to severe left hydronephrosis with left ureteral stent in place. Small nonobstructing left lower pole renal calculus stones. 12-05-2023: Echocardiogram estimated ejection fraction 60 65%. Moderate aortic valve stenosis. Mild tricuspid regurgitation small pericardial effusion. Left ventricular systolic function normal. Left atrial dimension is severely enlarged. History of Present Illness #1. Recent prolonged hospital course following some severe right-sided renal calculi with obstruction. Patient underwent surgical intervention with retrograde pyelography. Also had problems postoperatively with just generalized fatigue. Was subsequently discharged from the hospital with home apparently fell at home injured herself. Denied any history of any associated head trauma. Subsequently went back to the emergency room. Was told that she was anemic was not given any specific medications. Overall is doing fine otherwise but has just felt fatigued run down. She has felt short of breath with exertion although did have an echocardiogram done on December 04 which looked good showed good LV function.: #2. Essential Hypertension: Stage: Stage I Interval Neurological Complaints no headaches, dizziness, weakness, visual changes, ataxia, aphasia and apraxia. No shortness of breath, orthopnea or cardiovascular symptoms. No other symptoms related to end organ damage. Pressure has been under excellent control. Currently normal. No other end organ symptoms or findings. Therapy reviewed regarding management of hypertension and includes salt restriction and Sotalol Hydrochloride. #3. Atrial Fibrillation: Type: Persistent with recurrent episodes lasting longer than 7 days. Further classification: none and essential hypertension. Associated history of Sotalol Hydrochloride. No attending hx of any shortness of breath, palpitations, syncopal or neurological symptoms. Current medications: controlled ventricular response. Rate control: hypertension, Age > 75 and and considered moderate risk [id number] Criteria: Eliquis for embolic phenomenon. Anticoagulation: Type II Hypercholesterolaemia #4. taking medication and tolerating well: Currently No. fair control interval complaints of any muscle pain or arthralgia. No significant liver changes with medications. Last lipid panel: diet and Pravachol. Therapy reviewed regarding treatment of cholesterol management and include no. #5. Hx of hypothyroidism currently stable. Heat intolerance: yes Fatigue: yes Weight gain: yes Difficulty concentrating: none Muscle Symptoms: normal Skin Texture: normal Skin Color: synthroid Currently taking right sided. #6. Renal Calculi: History of right sided renal calculi. No interval complaints of any flank pain, nausea, vomiting, or gross hematuria. No other urinary track symptoms or signs of urinary infection. Active Medication ListSotalol Hydrochloride 80 MG TABLET One Twice AdayDocusate Sodium And Senna 100MG Once A DayVitamin D 50 MG Once DailySynthroid 0.05 MG One Daily For ThyroidPravachol 80 MG One Daily Fro CholesterolTramadol Hydrochloride 50 MG (TABLET - ORAL) One Q 8 Hours As Needed Back PainVitamin C 500 MG Once DailyFerrous Sulfate 325 MG One Twice A DayEliquis 2.5 MG TABLET, FILM COATED One Twice A DayWellbutrin 150 MG (TABLET, EXTENDED RELEASE - ORAL) One Twice A DayMidodrine Hcl 2.5 MG One Three Times A Day Adverse Drug Reactions ReviewedHeparin Thrombocytopenia Vaccination and Smhfejbidnnn3361-81 Resnrwhro9536-27 Covid Booster Pehimwz1554-23 Covid Uaimfof8932-80 Covid Dqqpkn7892-29 Prevnar 13 Tf0590-10 Pneumovax Surgical Ntnaadp1652-46 Gvnweqfnc8188-77 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 Family HistoryMother 74 from ASHD and HTNFather 76 from ASHD and HTNNo brothers or sisters Active Medication ListSotalol Hydrochloride 80 MG TABLET One Twice AdayDocusate Sodium And Senna 100MG Once A DayVitamin D 50 MG Once DailySynthroid 0.05 MG One Daily For ThyroidPravachol 80 MG One Daily Fro CholesterolTramadol Hydrochloride 50 MG (TABLET - ORAL) One Q 8 Hours As Needed Back PainVitamin C 500 MG Once DailyFerrous Sulfate 325 MG One Twice A DayEliquis 2.5 MG TABLET, FILM COATED One Twice A DayWellbutrin 150 MG (TABLET, EXTENDED RELEASE - ORAL) One Twice A DayMidodrine Hcl 2.5 MG One Three Times A Day Adverse Drug Reactions ReviewedHeparin Thrombocytopenia Vaccination and Fyfaqjufdjkx3900-88 Xchhggbbk8332-03 Covid Booster Ijoxwuk4488-77 Covid Otgumat2953-54 Covid Fyzqls8818-91 Prevnar 13 Wr9245-00 Pneumovax Surgical Tiaoggt5831-72 Fmfldhgnt0878-06 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 This represents approximately a 2.3% change in weight. Weight change attributable to lifestyle changes. Vital Signs:Blood Pressure: Sitting Rt. Arm 118/86Pulse: Sitting 62 /min and RegularRespiratory Rate: 14Height 62 in or 1.6 mWeight 130 lb or 59.0 kgBMI 23.8Temperature: 97.5 F or 36.4 CPulse Oximetry: 97 % at rest on no oxygen Chief Complaint: Addressed in HPI Problems or conditions discussed in the HPI were the only ones reviewed during the encounter.Only social and family history addressed in the HPI were reviewed during this encounter. Attendant(s): CaregiverConstitutional and Systemic Symptoms:none Medication Reconciliation: from medication list. Qjmzbijjvme00-11-3355: CT cervical spine from demonstrates severe cervical spondylolysis with chronic appearing T11 compression fracture with 20% anterior vertebral height loss. Multinodular goiter 10/29/2022: CT scan of the abdomen pelvis revealed severe left hydronephrosis with left internal ureteral stent in expected position. 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 Moderate atrophy of the right kidney is noted 05-03-2023: Renal ultrasound showed moderate left hydronephrosis. Echogenic changes noted in the right atrophic kidney likely representing multiple stones. 05-09-2023: CT scan of the abdomen reviewed acute sigmoid diverticulitis with no abscess or free air. Large start corn calculi is noted of the right kidney. Moderate to severe left hydronephrosis with left ureteral stent in place. Small nonobstructing left lower pole renal calculus stones. 12-05-2023: Echocardiogram estimated ejection fraction 60 65%. Moderate aortic valve stenosis. Mild tricuspid regurgitation small pericardial effusion. Left ventricular systolic function normal. Left atrial dimension is severely enlarged. History of Present Illness #1. Essential Hypertension: Stage: Stage I Interval Neurological Complaints no headaches, dizziness, weakness, visual changes, ataxia, aphasia and apraxia. No shortness of breath, orthopnea or cardiovascular symptoms. No other symptoms related to end organ damage. Pressure has been under excellent control. Currently normal. No other end organ symptoms or findings. Therapy reviewed regarding management of hypertension and includes salt restriction and Sotalol Hydrochloride. #2. Atrial Fibrillation: Type: Persistent with recurrent episodes lasting longer than 7 days. Further classification: Non-valvular. Associated history of none. No attending hx of any shortness of breath, palpitations, syncopal or neurological symptoms. Current medications: Sotalol Hydrochloride. Rate control: controlled ventricular response [id number] Criteria: Age > 75 for embolic phenomenon. Anticoagulation: Eliquis #3. Hx of hypothyroidism currently stable. Heat intolerance: no Fatigue: no Weight gain: no Difficulty concentrating: no Muscle Symptoms: none Skin Texture: normal Skin Color: normal Currently taking synthroid. #4. Renal Calculi: History of bilateral renal calculi. No interval complaints of any flank pain, nausea, vomiting, or gross hematuria. No other urinary track symptoms or signs of urinary infection. Active Medication ListSotalol Hydrochloride 80 MG TABLET One Twice AdayDocusate Sodium And Senna 100MG Once A DayVitamin D 50 MG Once DailySynthroid 0.05 MG One Daily For ThyroidPravachol 80 MG One Daily Fro CholesterolTramadol Hydrochloride 50 MG (TABLET - ORAL) One Q 8 Hours As Needed Back PainVitamin C 500 MG Once DailyFerrous Sulfate 325 MG One Twice A DayEliquis 2.5 MG TABLET, FILM COATED One Twice A DayWellbutrin 150 MG (TABLET, EXTENDED RELEASE - ORAL) One Twice A DayMidodrine Hcl 2.5 MG One Three Times A Day Adverse Drug Reactions ReviewedHeparin Thrombocytopenia Vaccination and Drmocdbnxwab8801-97 Wntdtgohh0288-33 Covid Booster Qzokcwv4185-37 Covid Zyajvbf6602-29 Covid Bsyngh0277-80 Prevnar 13 Vq1730-07 Pneumovax Surgical Whfzrdn6369-80 Wwzzgexuv5122-68 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 [employer] 02/09/2024 17:03:58 04/12/20 24 text/htm l Patient Name: Nelia Mcmullen Of Service: April ( 04.12.2024 ): 1935 Age: 88 There has been approximately a 3 lb weight loss since 02/09/2024. This represents approximately a 2.3% change in weight. Weight change attributable to lifestyle changes. Vital Signs:Blood Pressure: Sitting Rt. Arm 120/86Pulse: Sitting 79 /min and RegularRespiratory Rate: 16Height 62 in or 1.6 mWeight 127 lb or 57.6 kgBMI 23.2 Chief Complaint: Addressed in HPI Problems or conditions discussed in the HPI were the only ones reviewed during the encounter.Only social and family history addressed in the HPI were reviewed during this encounter. Attendant(s): NoneConstitutional and Systemic Symptoms:none Medication Reconciliation: from medication list. Zvopnoeojna42-81-1994: CT cervical spine from demonstrates severe cervical spondylolysis with chronic appearing T11 compression fracture with 20% anterior vertebral height loss. Multinodular goiter 10/29/2022: CT scan of the abdomen pelvis revealed severe left hydronephrosis with left internal ureteral stent in expected position. 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 Moderate atrophy of the right kidney is noted 05-03-2023: Renal ultrasound showed moderate left hydronephrosis. Echogenic changes noted in the right atrophic kidney likely representing multiple stones. 05-09-2023: CT scan of the abdomen reviewed acute sigmoid diverticulitis with no abscess or free air. Large start corn calculi is noted of the right kidney. Moderate to severe left hydronephrosis with left ureteral stent in place. Small nonobstructing left lower pole renal calculus stones. 12-05-2023: Echocardiogram estimated ejection fraction 60 65%. Moderate aortic valve stenosis. Mild tricuspid regurgitation small pericardial effusion. Left ventricular systolic function normal. Left atrial dimension is severely enlarged. History of Present Illness #1. Essential Hypertension: Stage: Stage I Interval Neurological Complaints no headaches, dizziness, weakness, visual changes, ataxia, aphasia and apraxia. No shortness of breath, orthopnea or cardiovascular symptoms. No other symptoms related to end organ damage. Pressure has been under excellent control. Currently normal. No other end organ symptoms or findings. Therapy reviewed regarding management of hypertension and includes salt restriction and Pravachol and Sotalol Hydrochloride. #2. Hx of hypothyroidism currently stable. Heat intolerance: no Fatigue: no Weight gain: no Difficulty concentrating: no Muscle Symptoms: none Skin Texture: normal Skin Color: normal Currently taking synthroid. #3. Type II Hypercholesterolaemia: Currently not taking medication. No interval complaints of any muscle pain or arthralgia. No significant liver changes with medications. Last lipid panel: fair control. Therapy reviewed regarding treatment of cholesterol management and include diet and Pravachol. #4. Renal Calculi: History of bilateral renal calculi. No interval complaints of any flank pain, nausea, vomiting, or gross hematuria. No other urinary track symptoms or signs of urinary infection. #5. History of chronic renal failure currently doing well. Currently is followed by a earring maker. Stage: CKD-3b. Albumin Stage: A1. There has been no change in urine output or color. No fever or chills. Active Medication ListSotalol Hydrochloride 80 MG TABLET One Twice AdayDocusate Sodium And Senna 100MG Once A DayVitamin D 50 MG Once DailySynthroid 0.05 MG One Daily For ThyroidPravachol 80 MG One Daily Fro CholesterolTramadol Hydrochloride 50 MG (TABLET - ORAL) One Q 8 Hours As Needed Back PainVitamin C 500 MG Once DailyFerrous Sulfate 325 MG One Twice A DayEliquis 2.5 MG TABLET, FILM COATED One Twice A DayWellbutrin 150 MG (TABLET, EXTENDED RELEASE - ORAL) One Twice A DayMidodrine Hcl 2.5 MG One Three Times A Day Adverse Drug Reactions ReviewedHeparin Thrombocytopenia Vaccination and Immunization( ) 2008-05 PNEUMOVAX(X) 2023-03 INFLUENZA(X) 2014-09 PREVNAR 13 GC PREVNAR 20 Needed( ) 2020-09 COVID PFIZER( ) 2021-05 COVID MODERNA(X) 2022-02 COVID BOOSTER MODERNA Surgical Opqyooz8715-08 Huimfftdy0557-99 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
--- OUTSIDE RECORDS SUMMARY | 2024-07-11 19:33 | XMS_ITS | Referral Summary ---
Author Organization [facility] Address [address] [place] [address] Care Team Providers Care Environmental Services Project Manager Name Role Phone Andrés Viveros MD Primary Care Provider Encounters Date Type Department Care Team Description 05/08/2024 2:50 PM BUSINESS DEVELOPMENT SALES EXECUTIVE Lab [facility] [address] [place] [address] Nonrheumatic aortic valve stenosis 05/08/2024 Telephone [facility] Cardiology [address] [facility] 8th [place] [address] [place] [address] Felisa Mcnulty MD 05/08/2024 2:00 PM BUSINESS DEVELOPMENT SALES EXECUTIVE Office Visit [facility] Surgery [address] [place] [address] Ventricular premature beats (Primary Dx); Nonrheumatic aortic valve stenosis 05/08/2024 12:00 PM BUSINESS DEVELOPMENT SALES EXECUTIVE Ancillary Procedure [facility] [address] [place] [phone] Nonrheumatic aortic valve stenosis 04/30/2024 Orders Only [facility] [address] [place] [phone] Zachary Kumar MD PAF (paroxysmal atrial fibrillation) (CMS/HCC) (HCC) (Primary Dx); Tachy-jered syndrome (CMS/HCC) (HCC); 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 (CMS/HCC) ([facility]) 04/27/2024 7:00 AM BUSINESS DEVELOPMENT SALES EXECUTIVE Ancillary Procedure [facility] [address] [place] [address] [place] [phone] Cardiac pacemaker in situ (Primary Dx); PAF (paroxysmal atrial fibrillation) (CMS/HCC) ([facility]); Tachy-jered syndrome (CMS/HCC) (HCC) 04/26/2024 Telephone [facility] [address] [place] [phone] Zachary Kumar MD from Last 3 Months Allergies Active Allergy Reactions Criticality Noted Date Comments Codeine Nausea only Low Heparin Propofol Unknown Medications levothyroxine (SYNTHROID) 50 mcg tablet take 1 Tablet (50MCG) by oral route every day 0 10/13/19 12 Active pravastatin (PRAVACHOL) 80 mg tablet take 1 tablet by oral route every day 90 3 11/08/19 15 Active cholecalcifero l (VITAMIN D-3) 2,000 unit tablet 0.025 tablets (50 Units total) Active buPROPion SR (WELLBUTRIN SR) 150 mg 12 hr tablet 10/16/19 20 Active ferrous sulfate 325 mg (65 mg of elemental iron) tabletIndicati ons:Iron Deficiency Anemia Take 1 tablet (325 mg total) by mouth daily with breakfast Active traMADoL (ULTRAM) 50 mg tablet Take 1 tablet (50 mg total) by mouth every 6 (six) hours as needed for pain Active Eliquis 2.5 mg tablet Take 1 tablet (2.5 mg total) by mouth 2 (two) times a day 08/10/19 23 Active sotaloL (BETAPACE) 80 mg tablet Take 1/2 (one-half) tablet by mouth once daily 45 tablet 1 06/22/19 25 Active sotaloL (BETAPACE) 80 mg tablet TAKE ONE-HALF TABLET BY MOUTH DAILY (TOTAL 40 MG) 45 tablet 03/27/20 24 025 Discontinued Hospital, Clinic, or Other Facility Administered Medication Ordered Dose Route Frequency Start Date End Date Status perflutren lipid (DEFINITY) 1.5 mL in sodium chloride 0.9% 10 mL syringe 1 - 10 mL IV Once in imaging 05/08/2024 Active Active Problems Problem Noted Date Diagnosed Date Multiple myeloma, remission status unspecified 1 Chronic kidney disease, stage 4 (severe) 024 Pulmonary embolism, other, u nspecified chronicity, unspecified whether acute cor pulmonale present 03/16/2024 Heparin-induced thrombocytopenia 03/16/2024 Sick sinus syndrome due to s inoatrial node dysfunction ([facility]) 10/11/2022 Cardiac pacemaker in situ 09/20/2022 Overview (09/20/2022): Medtronic Micra AV Dual Leadless Pacemaker. Dx; Jered/Tachy, PAF. DOI 09/20/2022-Fleissner. Archuleta. Carelink remote monitoring. Nonrheumatic mitral valve regurgitation 05/21/20 Sinus bradycardia 11/19/2020 CHAN (dyspnea on exertion) 11/09/2019 Near syncope 11/09/2019 Nonrheumatic aortic valve stenosis 09/13/2018 HTN (hypertension), benign 03/18/2017 Chronic anticoagulation 03/18/2017 Aneurysm of carotid artery ([facility]) 03/18/2017 PAF (paroxysmal atrial fibrillation) ([facility]) 1 Pulmonary HTN 03/18/2017 History of DVT (deep vein thrombosis) 03/18/2017 History of pulmonary embolus (PE) 03/18/2017 Abnormal mammogram 02/24/2017 Cerebral arterial aneurysm 12/05/2014 Dizziness 09/25/2014 Overview (09/09/2016): Dizziness Ventricular premature beats 10/20/2013 Overview (09/08/2016): PVC (premature ventricular contraction) Social History Tobacco Use Types Packs/Day Years Used Date Smoking Tobacco: Former Cigarettes Q uit: 03/18/1980 Smokeless Tobacco: Never Tobacco Cessation:Counseling Given: Not Answered Alcohol Use Standard Drinks/Week Comments Yes 7 (1 standard drink = 0.6 oz pur e alcohol) Comments Unknown Sex and Gender Information Value Date Recorded Sex Assigned at Not on file Legal Sex Female 6:09 AM BUSINESS DEVELOPMENT SALES EXECUTIVE Gender Identity Not on file Sexual Orientation Not on file Last Filed Vital Signs Vital Sign Reading Time Taken Comments Blood Pressure 175/133 05/08/2024 1:42 PM BUSINESS DEVELOPMENT SALES EXECUTIVE Pulse 68 05/08/2024 1:42 PM BUSINESS DEVELOPMENT SALES EXECUTIVE Temperature 36.5 C (97.7 F) 02/28/2020 11:31 AM CDT Respiratory Rate 18 01/11/2023 10:38 AM CDT Oxygen Saturation 99% 05/08/2024 1:42 PM BUSINESS DEVELOPMENT SALES EXECUTIVE Inhaled Oxygen Concentration - - Weight 59 kg (130 lb) 05/08/2024 1:42 PM BUSINESS DEVELOPMENT SALES EXECUTIVE Height 162.6 cm (5' 4 ) 05/08/2024 1:42 PM BUSINESS DEVELOPMENT SALES EXECUTIVE Body Mass Index 22.31 05/08/2024 1:42 PM BUSINESS DEVELOPMENT SALES EXECUTIVE Plan of Treatment Not on file Medical Devices Implanted Type Area Lactation Coordinator Device Identifier Shelf Expiration Date Model / Serial / Lot [employer] [id number] Device Closure Angio-Seal Vip Bondek-Plus Polyglyd L70 Cm Od6 Fr Odsec.035 In Vascular - [id number] Implanted:Qty: 1 on 02/28/2020 at [facility] [employer] 10/03/2020 [id number] / / [id number] Procedures Procedure Name Priority Date/Time Associated Diagnosis Comments EGFR Routine 05/08/2024 3:02 PM BUSINESS DEVELOPMENT SALES EXECUTIVE Nonrheumatic aortic valve stenosis DIFFERENTIAL AUTO Routine 05/08/2024 3:0 2 PM BUSINESS DEVELOPMENT SALES EXECUTIVE Nonrheumatic aortic valve stenosis PRO B-TYPE NATRIURETIC PEPTIDE Routine 05/08/2024 3:02 PM BUSINESS DEVELOPMENT SALES EXECUTIVE Nonrheumatic aortic valve stenosis BASIC METABOLIC PANEL Routine 05/08/2024 3:02 PM BUSINESS DEVELOPMENT SALES EXECUTIVE Nonrheumatic aortic valve stenosis CBC WITH AUTO DIFFERENTIAL Routine 05/08/2024 3:02 PM BUSINESS DEVELOPMENT SALES EXECUTIVE Nonrheumatic aortic valve stenosis ECG 12-LEAD Routine 05/08/2024 1:37 PM BUSINESS DEVELOPMENT SALES EXECUTIVE Ventricular premature beats TRANSTHORACIC ECHO (TTE) COMPLETE W DOPPLER/CF WO CONTRAST Routine 05/08/2024 1:15 PM BUSINESS DEVELOPMENT SALES EXECUTIVE Nonrheumatic aortic valve stenosis DEVICE CHECK - REMOTE Routine 04/30/2024 10:33 AM BUSINESS DEVELOPMENT SALES EXECUTIVE PAF (paroxysmal atrial fibrillation) (CMS/HCC) (HCC) Tachy-jered syndrome (CMS/HCC) (HCC) from Last 3 Months Results * (ABNORMAL) eGFR (05/08/2024 3:02 PM BUSINESS DEVELOPMENT SALES EXECUTIVE) eGFR 25(L) >=60 mL/min/1. 73 m2 Comment: Interpretive Data Reference Interval Normal >/= 90 mL/min/1.73m2 Mildly decreased* 60 - 89 mL/min/1.73m2 Mildly to moderately decreased 45 - 59 mL/min/1.73m2 Moderately to severely decreased 30 - 44 mL/min/1.73m2 Severely decreased 15 - 29 mL/min/1.73m2 Kidney Failure < 15 mL/min/1.73m2 *Relative to young adult level Estimated glomerular filtration rate is determined by the 2020 CKD-EPI equation recommended by the National Kidney Foundation (A Unifying Approach to GFR Estimation: Recommendations of the NKF-ASK Task Force on Reassessing the Inclusion of Race in Diagnosing Kidney Disease, JASN 2020). The CKD-EPI equation should not be used for patients with unstable renal function and has not been validated in children and those over 70. Current interpretive data was last reviewed 2021. Blood 05/08/2024 3:02 PM BUSINESS DEVELOPMENT SALES EXECUTIVE 05/08/2024 4:42 PM BUSINESS DEVELOPMENT SALES EXECUTIVE us Jaun Grossman MD LAB BLOOD ORDERABLES Final Result [facility] [id number]. [place] [address] * Differential, auto (05/08/2024 3:02 PM BUSINESS DEVELOPMENT SALES EXECUTIVE) Neutrophil abs 3.9 1.5 - 6.5 K/cumm Imm gran abs 0.0 0.0 - 0.1 K/cumm [facility] Lymphocyte abs 1.8 0.8 - 3.3 K/cumm [facility] Monocyte abs 0.5 0.2 - 0.8 K/cumm [facility] Eosinophil abs 0.1 0.0 - 0.5 K/cumm [facility] Basophil abs 0.1 0.0 - 0.1 K/cumm [facility] Neutrophil pct 61.9 % [facility] Comment: Interpretive Data Percent cell count reference ranges are not reported, since discordance with absolute values may lead to misinterpretation of CBC data. Current Interpretive Data was last revised on 2017. Imm gran pct 0.2 % [facility] Comment: Interpretive Data Percent cell count reference ranges are not reported, since discordance with absolute values may lead to misinterpretation of CBC data. Current Interpretive Data was last revised on 2017. Lymphocyte pct 27.6 % [facility] Comment: Interpretive Data Percent cell count reference ranges are not reported, since discordance with absolute values may lead to misinterpretation of CBC data. Current Interpretive Data was last revised on 2017. Monocyte pct 7.3 % [facility] Comment: Interpretive Data Percent cell count reference ranges are not reported, since discordance with absolute values may lead to misinterpretation of CBC data. Current Interpretive Data was last revised on 2017. Eosinophil pct 2.2 % [facility] Comment: Interpretive Data Percent cell count reference ranges are not reported, since discordance with absolute values may lead to misinterpretation of CBC data. Current Interpretive Data was last revised on 2017. Basophil pct 0.8 % [facility] Comment: Interpretive Data Percent cell count reference ranges are not reported, since discordance with absolute values may lead to misinterpretation of CBC data. Current Interpretive Data was last revised on 2017. Blood 05/08/2024 3:02 PM BUSINESS DEVELOPMENT SALES EXECUTIVE 05/08/2024 4:43 PM BUSINESS DEVELOPMENT SALES EXECUTIVE us Juan Grossman MD LAB BLOOD ORDERABLES Final Result [facility] [id number] [facility] [address] [facility] [address] * (ABNORMAL) Pro B-type natriuretic peptide (05/08/2024 3:02 PM BUSINESS DEVELOPMENT SALES EXECUTIVE) NT-proBNP 7,427(H) <=450 pg/mL Comment: Interpretive Comments: A. Dyspnea in Acute Care Setting All Ages: < 300 pg/ml, acute heart failure unlikely. < 50 yrs: 300 - 450 pg/ml, further investigation warranted. > 450 pg/ml, acute heart failure likely. 50 - 74 yrs: 300 - 900 pg/ml, further investigation warranted. > 900 pg/ml, acute heart failure likely . > or = 75 yrs: 450 - 1800 pg/ml, further investigation warranted. > 1800 pg/ml, acute heart failure likely. B. Non-acute Setting < 75 yrs < 125 pg/ml, rules out heart failure. > or = 125 pg/ml, further investigation warranted. > or = 75 yrs < 450 pg/ml, rules out heart failure. > or = 450 pg/ml, further investigation warranted. - Knowledge of each individual patient's NT-proBNP range may be more useful than using similar cut-points for every patient. Please note that marked elevations in NT-proBNP levels may be observed in state other than Left Ventricular Congestive Failure, including: acute coronary syndromes, right heart strain/failure (including pulmonary embolism and cor pulmonale), critical illness, renal failure, as well as advanced age. - References: 1. Sean FLETCHER et.al. Eur Heart J. 2006:27:330-337. 2. Opal RW, Mauricio LACEY. J. AM Jes Cardiol: Cardiovasc Imag. 2009;2: 216- 225. Interpretive Data Last Revised Date: 2018. Blood 05/08/2024 3:02 PM BUSINESS DEVELOPMENT SALES EXECUTIVE 05/08/2024 4:42 PM BUSINESS DEVELOPMENT SALES EXECUTIVE us Juan Grossman MD LAB BLOOD ORDERABLES Final Result [facility] [address] [address] * (ABNORMAL) CBC with auto differential (05/08/2024 3:02 PM BUSINESS DEVELOPMENT SALES EXECUTIVE) Pathologist [facility] WBC 6.3 3.8 - 9.9 K/cumm Hgb 14.2 11.9 - 15.5 g/dL [facility] Hct 45.6(H) 35.6 - 45.5 % [facility] Plt 122(L) 150 - 400 K/cumm [facility] Comment:Consistent with prev ious result. MPV 10.7 9.1 - 12.3 fL [facility] RBC 4.62 3.90 - 5.20 M/cumm [facility] MCV 98.7(H) 81.3 - 96.4 fL [facility] MCH 30.7 27.1 - 33.3 pg [facility] MCHC 31.1(L) 32.3 - 35.7 g/dL [facility] RDW CV 14.1 11.1 - 14.9 % [facility] RDW SD 50.8(H) 35.7 - 48.1 fL [facility] NRBC abs 0.00 0.00 - 0.01 K/cumm [facility] Blood 05/08/2024 3:02 PM BUSINESS DEVELOPMENT SALES EXECUTIVE 05/08/2024 4:43 PM BUSINESS DEVELOPMENT SALES EXECUTIVE us Juan Grossman MD LAB BLOOD ORDERABLES Final Result [facility] [address] [facility]. [place] [address] * (ABNORMAL) Basic metabolic panel (05/08/2024 3:02 PM BUSINESS DEVELOPMENT SALES EXECUTIVE) [facility] Sodium 143 135 - 145 mmol/L Potassium, pl 4.7 3.3 - 4.9 mmol/L [facility] Chloride 106 97 - 110 mmol/L [facility] CO2 24 22 - 32 mmol/L [facility] Anion gap 13 2 - 15 mmol/L [facility] BUN 38(H) 6 - 25 mg/dL [facility] Creatinine 1.89(H) 0.60 - 1.10 mg/dL [facility] Glucose 99 70 - 199 mg/dL [facility] Comment: Interpretive Data Fasting glucose >/= 126 mg/dl is diagnostic for diabetes. Fasting is defined as no caloric intake for at least 8 hours. Fasting glucose between 100 mg/dl to 125 mg/dl is diagnostic of prediabetes. In a patient with classic symptoms of hyperglycemia or hyperglycemic crisis, a random glucose >/= 200 mg/dl is diagnostic for diabetes. In the absence of unequivocal hyperglycemia, results should be confirmed by repeat testing. The classification and Diagnosis of Diabetes Diabetes Care 2021; 46: S19-S40. Current interpretive data was last revised 2022. Calcium 10.1 8.5 - 10.3 mg/dL [facility] Blood 05/08/2024 3:02 PM BUSINESS DEVELOPMENT SALES EXECUTIVE 05/08/2024 4:42 PM BUSINESS DEVELOPMENT SALES EXECUTIVE us Juan Grossman MD LAB BLOOD ORDERABLES Final Result [facility] [address] [facility] [address] [facility] [address] * ECG 12 lead (05/08/2024 1:37 PM BUSINESS DEVELOPMENT SALES EXECUTIVE) us Felisa Mcnulty MD ECG ORDERABLES Final Result * TRANSTHORACIC ECHO (TTE) COMPLETE W DOPPLER/CF WO CONTRAST (05/08/2024 1:15 PM BUSINESS DEVELOPMENT SALES EXECUTIVE) LV EF 60 % [facility] Anatomical Region Laterality Modality Ultrasound 05/08/2024 12:0 0 PM BUSINESS DEVELOPMENT SALES EXECUTIVE Narrative 05/11/2024 9:40 AM BUSINESS DEVELOPMENT SALES EXECUTIVE Patient name: Nelia Peterson Date of test: 05/08/2024 Type of test: TTE w/Doppler Hospital #: 0 Date of : 1935 (F) Roadway Designer: MARY ELLEN Hill Referring Physician: FELISA MCNULTY MD Contrast Agent: Unable to obtain IV access for contrast administration. Contrast Administered by: Supervised/Interpreted by: Felisa Mcnulty MD Diagnosis: Location: [facility] Reason for test: MV Structure: Normal, MV Motion: Normal, Mitral Annulus: mildly calcified AV Structure: tricuspid and is stenotic, AV Motion: Normal Aotic root: Normal, TM: Normal, PV: Normal Valvular Vegetations: none seen, Mass/Thrombi: none seen RA: increased Measurements: M-Mode Normal Aotic Root: <3.8 LA: <3.8 RV: <2.8 LV(ED): <5.7 LV(ES): Variable 2D Linear Normal Aotic Root: 3.0 cm <3.6 Ao Indexed: 1.9 cm/M2 <2.0 LA: <3.8 RV: 3.2 cm <4.2 LV(ED): 3.7 cm <5.3 LV(ES): 2.7 cm <3.5 2D Vol. Normal Indexed Indexed Normal RA: 68.0 ml 42.2 ml/M2 9-33 LA: 76.0 ml 47.1 ml/M2 16-34 RV: <11.6 LV(ED): 62.0 ml 46-106 38.4 ml/M2 <62 LV(ES): 25.0 ml 14-42 15.5 ml/M2 <25 3D Vol. Indexed Normal LV(ED): 34.1 mL/m2 <62 LV(ES): 19.8 mL/m2 <24 LV EF: 60 % (Normal: >=54%) LV Septum: 1.3 cm (Normal: <0.9 cm) Wall Motion Scoring (1=Normal 2=Hypo 3=Akinetic 4=Dyskin./Aneurysm 0=Not visualized) Parasternal Long Burden:MAS=1 BAS=1 MIL=1 DIMPLE=1 Parasternal Short Burden:MAS=1 MIS=1 NJ=1 MIL=1 MAL=1 MA=1 Apical 4 Chambers:=1 MIS=1 BIS=1 BAL=1 MAL=1 AL=1 AC=1 Apical 2 Chambers:AI=1 NJ=1 BI=1 BA=1 MA=1 AA=1 AC=1 LV Global Longitudinal Strain: -9% (Normal <-17%) RV Global Longitudinal Strain: -15% (Normal <-17%) LV Function: Normal LV Ejection Fraction, (EF=54-74%) RV Function: Normal Septal Motion: Normal Pericardial Effusion: small Atrial Septum: Normal DOPPLER/COLOR FLOW DOPPLER RESULTS: Diastolic Function: indeterminate Tricuspid Valve: normal TV Pulmonic Valve: normal PV AV Regurgitation: No AR seen AV Stenosis: moderate AV Area: 1.0 cm2 AV Pressure Gradient (mmHg): Mean: 13, Peak:23 MV Regurgitation: Mild MR MV Stenosis: no MS MV Area: cm2 MV Pressure Gradient (mmHg): Mean: 0 MV ERO: cm Regurg. Vol.: ml/beat Regurg. Frac.: % PA Pressure: 35+rap mmHg DOPPLER/COLOR FOLOW DOPPLER COMMENTS: No AR seen, Mild MR, moderate , no MS, normal TV, normal PV. Diastolic function: indeterminate di 13/44; di 0.29 CONTRAST: Unable to obtain IV access for contrast administration. SUMMARY: Irregular rhythm during study: LV size is normal. Increased LV wall thickness. LVEF 62%. Normal RV systolic function. LAE/ALEX. Calcified AV with mod (mean 13mmHg, LACEY 1.0 cm2, DI 0.29). Estimated PASP 35mmHg+RA pressure. Normal RA pressure. Small pericardial effusion. Confirmed on 05/11/2024 - 09:40:17 by Felisa Mcnulty MD By signing this report, the attending weight inspector certifies that he or she has personally supervised and interpreted the echocardiogram and has reviewed and or edited and agrees with the written comments contained within the report. Procedure Note Felisa Mcnulty MD - 05/11/2024 Patient name: Nelia Peterson Date of test: 05/08/2024 Type of test: TTE w/Doppler Hospital #: 0 Date of : 1935 (F) Road[address] Designer: MARY ELLEN Hill Referring Physician: FELISA MCNULTY MD Contrast Agent: Unable to obtain IV access for contrast administration. Contrast Administered by: Supervised/Interpreted by: Felisa Mcnulty MD Diagnosis: Location: [facility] Reason for test: MV Structure: Normal, MV Motion: Normal, Mitral Annulus: mildly calcified AV Structure: tricuspid and is stenotic, AV Motion: Normal Aotic root: Normal, TM: Normal, PV: Normal Valvular Vegetations: none seen, Mass/Thrombi: none seen RA: increased Measurements: M-Mode Normal Aotic Root: <3.8 LA: <3.8 RV: <2.8 LV(ED): <5.7 LV(ES): Variable 2D Linear Normal Aotic Root: 3.0 cm <3.6 Ao Indexed: 1.9 cm/M2 <2.0 LA: <3.8 RV: 3.2 cm <4.2 LV(ED): 3.7 cm <5.3 LV(ES): 2.7 cm <3.5 2D Vol. Normal Indexed Indexed Normal RA: 68.0 ml 42.2 ml/M2 9-33 LA: 76.0 ml 47.1 ml/M2 16-34 RV: <11.6 LV(ED): 62.0 ml 46-106 38.4 ml/M2 <62 LV(ES): 25.0 ml 14-42 15.5 ml/M2 <25 3D Vol. Indexed Normal LV(ED): 34.1 mL/m2 <62 LV(ES): 19.8 mL/m2 <24 LV EF: 60 % (Normal: >=54%) LV Septum: 1.3 cm (Normal: <0.9 cm) Wall Motion Scoring (1=Normal 2=Hypo 3=Akinetic 4=Dyskin./Aneurysm 0=Not visualized) Parasternal Long Burden:MAS=1 BAS=1 MIL=1 DIMPLE=1 Parasternal Short Burden:MAS=1 MIS=1 NJ=1 MIL=1 MAL=1 MA=1 Apical 4 Chambers:=1 MIS=1 BIS=1 BAL=1 MAL=1 AL=1 AC=1 Apical 2 Chambers:AI=1 NJ=1 BI=1 BA=1 MA=1 AA=1 AC=1 LV Global Longitudinal Strain: -9% (Normal <-17%) RV Global Longitudinal Strain: -15% (Normal <-17%) LV Function: Normal LV Ejection Fraction, (EF=54-74%) RV Function: Normal Septal Motion: Normal Pericardial Effusion: small Atrial Septum: Normal DOPPLER/COLOR FLOW DOPPLER RESULTS: Diastolic Function: indeterminate Tricuspid Valve: normal TV Pulmonic Valve: normal PV AV Regurgitation: No AR seen AV Stenosis: moderate AV Area: 1.0 cm2 AV Pressure Gradient (mmHg): Mean: 13, Peak:23 MV Regurgitation: Mild MR MV Stenosis: no MS MV Area: cm2 MV Pressure Gradient (mmHg): Mean: 0 MV ERO: cm Regurg. Vol.: ml/beat Regurg. Frac.: % PA Pressure: 35+rap mmHg DOPPLER/COLOR FOLOW DOPPLER COMMENTS: No AR seen, Mild MR, moderate , no MS, normal TV, normal PV. Diastolic function: indeterminate di 13/44; di 0.29 CONTRAST: Unable to obtain IV access for contrast administration. SUMMARY: Irregular rhythm during study: LV size is normal. Increased LV wall thickness. LVEF 62%. Normal RV systolic function. LAE/ALEX. Calcified AV with mod (mean 13mmHg, LACEY 1.0 cm2, DI 0.29). Estimated PASP 35mmHg+RA pressure. Normal RA pressure. Small pericardial effusion. Confirmed on 05/11/2024 - 09:40:17 by Felisa Mcnulty MD By signing this report, the attending weight inspector certifies that he or she has personally supervised and interpreted the echocardiogram and has reviewed and or edited and agrees with the written comments contained within the report. Felisa Mcnulty MD CV ECHO PROCEDURES Final Resul t * DEVICE CHECK - REMOTE (04/30/2024 10:33 AM BUSINESS DEVELOPMENT SALES EXECUTIVE) Anatomical Region Laterality Modality Other Narrative 07/02/2024 8:52 AM BUSINESS DEVELOPMENT SALES EXECUTIVE Medtronic Micra AV Dual Leadless Pacemaker. Dx; Jered/Tachy, PAF. DOI 09/20/2022-Fleissner. [place]. [employer]link remote monitoring. Routine VDD Pacemaker Remote. Transmission attached. Battery status: 3.02 V, > 8.0 years remaining battery life to BARRIE. Stable electrode impedance, pacing and sensing thresholds. Presenting rhythm: AMVP AM/CLAIM TAKER- 17.8 %, CLAIM TAKER- 54.5 % Medications: Eliquis 2.5 mg, sotalol 80 mg See scanned report. Office pacemaker follow up: 9 months Medtronic remote f/u 08/01/24. Zachary Kumar MD CV CARDIAC SERVICES [facility] Final Result from Last 3 Months Insurance AET MEDICARE AET MEDICARE Advance Directives For more information, please contact: [phone] * Full Code (Latest Code Status on File) Date Activated Date Inactivated Comments 02/28/2020 11:26 AM 02/28/2020 5:54 PM Care Teams Environmental Services Project Manager Relationship Specialty Start Date End Date Andrés Viveros MD PCP - General 03/17/17
--- OUTSIDE RECORDS SUMMARY | 2024-07-11 19:33 | XMS_ITS | Referral Summary ---
Author Organization [facility] Address [address] [place] [address] Care Team Providers Care Submarine Advisory Team Watch Officer Name Role Phone Chris Styles Primary Care Provider Unavailabl e Source Comments [facility],non-owned Affiliates and Associated Physician Practices is amultiple site organization consisting of ambulatory clinics and hospital sitesin [place], [place], [place] and [place]. This disclosure is being madepursuant to the Care Everywhere program and may not contain all information available regarding this patient. Last updated 18.[facility] Social History Tobacco Use Types Packs/Day Years Used Date Smoking Tobacco: Never Assessed Sex and Gender Information Value Date Recorded Sex Assigned at Not on file Gender Identity Not on file Sexual Orientation Not on file Plan of Treatment Not on file Care Teams Submarine Advisory Team Watch Officer Relationship Specialty Start Date End Date Chris Styles Update Information PCP - General 11/27/19
--- OUTSIDE RECORDS SUMMARY | 2024-07-11 19:33 | XMS_ITS | Encounter Summary ---
Author Organization [facility] Health Address [address] [place] [address] Care Team Providers Care Local Owner Operator Truck Driver Name Role Phone Chris Styles Primary Care Provider Unavailannika e Encounter Details Date Type Department Care Team (Late st Contact Info) Description 09/30/2021 Lab Requisition [facility] DermPath Lab [address] [place] [address] oJrdan Lewis MD [address] [place] [address] Social History Tobacco Use Types Packs/Day Years Used Date Smoking Tobacco: Never Assessed Sex and Gender Information Value Date Recorded Sex Assigned at Not on file Gender Identity Not on file Sexual Orientation Not on file documented as of this encounter Plan of Treatment Not on file documented as of this encounter Procedures Procedure Name Priority Date/Time Associated Diagnosis Comments DERMATOPATHOLOGY Routine 09/29/2021 12:0 0 AM CDT documented in this encounter Results * DERMATOPATHOLOGY (09/29/2021 12:00 AM CDT) Case Report Dermatopathology Report Case: [id number] Authorizing Provider: Joradn Lewis MD Collected: 09/29/2021 12:00 AM Ordering Location: [facility] DermPath Lab Received: 09/30/2021 02:16 PM Pathologist: Ayesha Bergman MD Specimen: Skin, top left helix rim 1:36 PM CDT DERMATOPATHOLOGY LABORATORY Final Diagnosis Specimen A. SKIN, top left helix rim: SQUAMOUS CELL CARCINOMA, WELL DIFFERENTIATED (C44.229) PRESENT AT MARGIN 1:36 PM CDT DERMATOPATHOLOGY LABORATORY Clinical History R/O SCC, KA, Chondrodermatitis. Please Check Margins. 2 1:36 PM CDT DERMATOPATHOLOGY LABORATORY Gross Description Specimen A: Received is one formalin filled container labeled with the patient's name and designated top left helix rim. The specimen consists of a shave biopsy measuring [id number]. The specimen is inked and bisected. Jar 0. 2 1:36 PM CDT DERMATOPATHOLOGY LABORATORY Microscopic Description Specimen A. SKIN, top left helix rim: Arising in the epidermis and extending into the dermis there are irregularly shaped aggregates of keratinocytes showing evidence of premature cornification. This lesion is present at the margin of the specimen. 1:36 PM CDT DERMATOPATHOLOGY LABORATORY Disclaimer An external and internal positive and negative controls are appropriate for the histochemical, immunohistochemical and immunofluorescence stain(s) in this case (if any), except where stated explicitly. The performance characteristics of the stain(s) cited in this report were developed and its performance characteristic determined by the Dermatopathology Laboratory at [facility], directed by Dr. Freya Harris. These tests need not be, and therefore are not, approved by the [place] Food and Drug Administration. The tests are used for clinical purposes. Billing Codes Specimen Charges Stain Charges 69430 1 2 1:36 PM CDT DERMATOPATHOLOGY LABORATORY Embedded Images 1:36 PM CDT DERMATOPATHOLOGY LABORATORY Pathology/Cytolog y TISSUE SPECIMEN FROM SKIN / Unknown 09/29/2021 09/30/2021 2:16 PM CDT Jordan Lewis MD LAB - PATHOLOGY/CYTO LOGY ORDERABLES DERMATOPATHOLOGY LABORATORY [facility] - Department of Dermatology [address], [address] [phone] documented in this encounter Visit Diagnoses Not on filedocumented in this encounter Care Teams Local Owner Operator Truck Driver Relationship Specialty Start Date End Date Chris Styles Update Information PCP - General 11/27/19 documented as of this encounter
--- OUTSIDE RECORDS SUMMARY | 2024-07-11 19:33 | XMS_ITS | Continuity of Care Document ---
Author Organization [facility] Address [address] [place] [address] Insurance Providers Payer Plan Claims Address Claims Phone Policy Number Group Number Relation Employer Guarantor Name Guarantor Guarantor Address Guarantor Phone [facility] MANA[employer] ED MEDIC ARE ADV [address] [address], [place] [address] tel:[phone] Self Nelia Peterson 1935 [address] [place] [address] [employer] [address], [place] [address] Coverag [id number] Self Nelia Peterson [address] [place] [address] [employer] S [address], [place] [address] Coverag [id number] Self Nelia Peterson [address] [place] [address] Problems Condition ICD9 code ICD10 code SNOMED code Start Date End Date S tatus Encounter for other preprocedural examination Z01.818 Working Impacted cerumen, unspecified ear H61.20 Working Other specified abnormal findings of blood chemistry R79.89 Working Multiple myeloma not having achieved remission C90.00 Working Persons encountering health services in other specified circumstances Z76.89 W orking Other fatigue R53.83 Working Results No Results Allergies, adverse reactions, alerts No known allergies and adverse reactions Medications No administered medications reported Vital Signs No vital signs reported Social History No smoking Hx information available
--- OUTSIDE RECORDS SUMMARY | 2024-07-11 19:33 | XMS_ITS ---
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 Dx; Jered/Tachy, PAF. DOI 09/20/2022-Fleissner. [place]. Carelink remote monitoring. 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 Past Plans No past plan information found. Radiation Treatments * No radiation treatments are documented for this patient in [facility]. Treatments may have been administered in another system. Lifetime Dose Tracking * Chemical Lifetime Dose Automatic Entry Manual Entr y Fluoro Time 11.7 minutes 11.7 minutes 0 minutes Air kerma at the reference point (Ka,r) 770.1 mGy 7 70.1 mGy 0 mGy
--- OUTSIDE RECORDS SUMMARY | 2024-07-11 19:33 | XMS_ITS | Clinical Summary ---
Author Organization [facility] Address [address] [place] [address] Care Team Providers Care Glass Belt Sander Name Role Phone Chris Styles Primary Care Provider Unavailannika e Source Comments [facility],non-owned Affiliates and Associated Physician Practices is amultiple site organization consisting of ambulatory clinics and hospital sitesin [place], [place], [place] and [place]. This disclosure is being madepursuant to the Care Everywhere program and may not contain all information available regarding this patient. Last updated 18.[facility] [employer] Social History Tobacco Use Types Packs/Day Years Used Date Smoking Tobacco: Never Assessed Sex and Gender Information Value Date Recorded Sex Assigned at Not on file Gender Identity Not on file Sexual Orientation Not on file Plan of Treatment Health Maintenance Due Date Last Done Comments BONE DENSITY TESTING 1935 DTAP/TDAP/TD VACCINES (1 - Tdap) 08/16/1955 PNEUMOCOCCAL VACCINE 50+ (1 of 1 - PCV) 1986 ZOSTER VACCINE (1 of 2) 1986 Respiratory Syncytial Virus (RSV) Vaccine Pt: or over 60 yrs (1 - 1-dose 75+ series) 08/16/2011 COVID-19 VACCINE ( - 2023-2 5 season) 2024 INFLUENZA VACCINE (#1) 2024 DEPRESSION SCREENING 06/06/2024 MEDICARE AWV CALENDAR YEAR 2024 HEPATITIS B VACCINE Aged Out No longe r eligible based on patient's age to complete this topic HIB VACCINE Aged Out No longer eligi ble based on patient's age to complete this topic HPV VACCINE Aged Out No longer eligi ble based on patient's age to complete this topic MENINGOCOCCAL (Group B) VACCINE Aged Out No longer eligible based on patient's age to complete this topic MENINGOCOCCAL VACCINE Aged Out No belinda que eligible based on patient's age to complete this topic Care Teams Glass Belt Sander Relationship Specialty Start Date End Date Chris Styles Update Information PCP - General 11/27/19
--- OUTSIDE RECORDS SUMMARY | 2024-07-11 19:33 | XMS_ITS | Continuity of Care Document ---
Author Organization [facility] Address [address] [facility] [address] [place] [address] Phone Care Team Providers Care Crm System Administrator Name Role Phone Doisy, Edward Unavailable Unavailable Procedures Procedure Date Office/outpatient Visit, Est Visual Functional Status Assessed Advance Directives Directive Yes / No Effective Date File Name No Information Encounters Encounter Description Practice Location Reason(s) For Visit Diagnoses Date Provider Providers Copied on Encounter Office/outpat ient Visit, Est [facility], [address], [place], [place], [id number], [place] tel:[phone] [facility] No Information 8-[address] 7 Doisy Edward. [address] , [address], [place], [address], [place]. tel:[phone] Referring Provider: Melanie Parra OD, [address] [facility], [place], [address]. tel:[phone] Family History Family Member Type Diagnosis Age At Onset No Information Payers Payer name Insurance type Covered republican ID Authoriza tion(s) [place] [id number] Social History Type Description Quantity Date Captured Comments Sex Female Smoking Status No Information Chief Complaint And Reason For Visit No Information Reason For Referral Reason For Referral No Information History Of Present Illness Encounter Date Complaint History Of Prese nt Illness No Information Functional Status Date Functional Assessmen t No Information Instructions Date Instruction Additional Infor mation No Information Assessments Type Assessment Date No Information Patient Care Teams Name Effective Dates (start - stop) Status Members No Information
--- OUTSIDE RECORDS SUMMARY | 2024-07-11 19:33 | XMS_ITS | Encounter Summary ---
Author Organization [facility] Health Address [address] [place] [address] Care Team Providers Care Auto Damage Insurance Appraiser Name Role Phone Chris Styles Primary Care Provider Peggy e Encounter Details Date Type Department Care Team (Late st Contact Info) Description 01/29/2021 Lab Requisition [facility] DermPath Lab [address] [place] [address] Jordan Lewis MD [address] [place] [address] Social History Tobacco Use Types [...] Priority Date/Time Associated Diagnosis Comments DERMATOPATHOLOGY Routine 01/28/2021 12:0 0 AM CDT documented in this encounter Results * DERMATOPATHOLOGY (01/28/2021 12:00 AM CDT) Case Report Dermatopathology Report Case: [id number] Authorizing Provider: Jordan Lewis MD Collected: 01/28/2021 12:00 AM Ordering Location: [facility] DermPath Lab Received: 01/29/2021 10:59 AM Pathologist: Grant Harris MD Specimens: A) - Skin, above left mid brow B) - Skin, below mid left brow 2:55 PM CDT DERMATOPATHOLOGY LABORATORY Final Diagnosis Specimen A. SKIN, above left mid brow: SQUAMOUS CELL CARCINOMA, WELL TO MODERATELY DIFFERENTIATED (C44.329) Specimen B. 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 The specimen consists of a shave biopsy measuring 7x6x2 mm. Jar 0. Specimen B: Received is one formalin filled container labeled with the patient's name and designated below mid left brow. The specimen consists of a shave biopsy measuring 7x4x1 mm. Jar 0. 2:55 PM CDT DERMATOPATHOLOGY LABORATORY Microscopic Description Specimen A. SKIN, above left mid brow: There are nests of squamous epithelial cells which arise from the epidermis and extend into the dermis. The nests have only focal central keratinization and rare horn neo formation. Specimen B. SKIN, below mid left brow: The epidermis shows parakeratosis, full thickness disorderly maturation of keratinocytes, mitoses at different levels, and dyskeratotic cells. 1 2:55 PM CDT DERMATOPATHOLOGY LABORATORY Disclaimer An external and internal positive and negative controls are appropriate for the histochemical, immunohistochemical and immunofluorescence stain(s) in this case (if any), except where stated explicitly. The performance characteristics of the stain(s) cited in this report were developed and its performance characteristic determined by the Dermatopathology Laboratory at [facility], directed by Dr. Freya Harris. These tests need not be, and therefore are not, approved by the [place] Food and Drug Administration. The tests are used for clinical purposes. Billing Codes Specimen Charges Stain Charges 33808 26010 1 1 1 2:55 PM CDT DERMATOPATHOLOGY LABORATORY Embedded Images 2:55 PM CDT DERMATOPATHOLOGY LABORATORY Pathology/Cytology TISSUE SPECIMEN FROM SKIN / Unknown 01/28/2021 01/29/2021 10:59 AM CDT Miscellaneous samples (specimen) TISSUE SPECIMEN FROM SKIN / Unknown 01/28/2021 01/29/2021 10:59 AM CDT Jordan Lewis MD LAB - PATHOLOGY/CYTO LOGY ORDERABLES DERMATOPATHOLOGY LABORATORY [facility] - Department of Dermatology [facility] Specialized Medicine [address] [place] [address], [address] [phone] documented in this encounter Visit Diagnoses Not on filedocumented in this encounter Care Teams Auto Damage Insurance Appraiser Relationship Specialty Start Date End Date Chris Styles Update Information PCP - General 11/27/19 documented as of this encounter
--- OUTSIDE RECORDS SUMMARY | 2024-07-11 19:33 | XMS_ITS | Clinical Summary ---
Author Organization [facility] Address [address] [place] [address] Care Team Providers Care Manufacturing Sr Engineer Name Role Phone Andrés Viveros MD Primary Care Provider [phone] Allergies No known active allergies Medications ferrous sulfate 325 mg (65 mg iron) tablet Take 325 mg by mouth daily with breakfast. Active cholecalciferol, Vitamin D3, 50 mcg (2,000 unit) Tablet Take 50 Units by mouth daily. Active apixaban (Eliquis) 2.5 mg tablet Take 2.5 mg by mouth 2 times daily. 08/09/2022 Active sotaloL (BETAPACE) 80 mg tablet Take 80 mg by mouth every 12 hours. 10/18/2022 Active levothyroxine sodium (LEVOTHYROXINE ORAL) Take by mouth daily. Active BUPROPION HCL ORAL Take by mouth daily. Active Active Problems No known active problems Encounters Date Type Department Care Team Description 06/28/2024 External Device Data [facility] ABSTRACTION Provider, Abstract 06/27/2024 External Device Data [facility] ABSTRACTION Provider, Abstract 06/26/2024 External Device Data [facility] ABSTRACTION Provider, Abstract from Last 3 Months Family History Medical History Relation Name Comments No Known Problems Child 1 No Known Problems Child 2 No Known Problems Child 3 Heart Disease Father Heart Disease Mother Relation Name Status Comments Child 1 Child 2 Child 3 Father Mother Social History Tobacco Use Types Packs/Day Years Used Date Smoking Tobacco: Former Cigarettes 0.3 0 0 09/21/1959 - 09/22/1959 Tobacco Cessation:Counseling Given: Not Answered Alcohol Use Standard Drinks/Week Comments Yes 0 (1 standard drink = 0.6 oz pur e alcohol) socially Comments Unknown Sex and Gender Information Value Date Recorded Sex Assigned at Not on file Legal Sex Female 9:31 PM CDT Gender Identity Not on file Sexual Orientation Not on file Last Filed Vital Signs Vital Sign Reading Time Taken Comments Blood Pressure 152/88 10/17/2023 10:15 AM CDT Pulse 61 10/17/2023 10:15 AM CDT Temperature 35.9 C (96.7 F) 10/17/2023 10:07 AM CDT Respiratory Rate 16 10/17/2023 10:07 AM CDT Oxygen Saturation 90% 10/17/2023 10:07 AM CDT Inhaled Oxygen Concentration - - Weight 61.7 kg (136 lb) 10/17/2023 10:07 AM CDT Height - - Body Mass Index - - Plan of Treatment Health Maintenance Due Date Last Done Comments DTAP/TDAP/TD VACCINES (1 - Tdap) 08/16/1955 ZOSTER VACCINE (1 of 2) 08/16/1955 OSTEOPOROSIS SCREENING 2001 RSV VACCINE (60+ or ) (1 - 1-dose 75+ series) 08/16/2011 PNEUMOCOCCAL VACCINE 65+ YEA RS (2 of 2 - PPSV23) 11/15/2014 09/20/2014 INFLUENZA VACCINE (#1) 2024 3, 05/16/2021, 04/04/2020, Additional history exists Insurance [employer] O MCR Care Teams Manufacturing Sr Engineer Relationship Specialty Start Date End Date Andrés Viveros MD [address] [address] [place] [address] PCP - General Internal Medicine 08/30/23
--- OUTSIDE RECORDS SUMMARY | 2024-07-11 19:33 | XMS_ITS | Clinical Summary ---
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 Dx; Jered/Tachy, PAF. DOI 09/20/2022-Fleissner. Archule[place]. Carelink remote monitoring. Nonrheumatic mitral valve regurgitation 05/21/20 Sinus bradycardia 11/19/2020 CHAN (dyspnea on exertion) 11/09/2019 Near syncope 11/09/2019 Nonrheumatic aortic valve stenosis 09/13/2018 HTN (hypertension), benign 03/18/2017 Chronic anticoagulation 03/18/2017 Aneurysm of carotid artery ([facility]) 03/18/2017 PAF (paroxysmal atrial fibrillation) ([facility]) 1 Pulmonary HTN 03/18/2017 History of DVT (deep vein thrombosis) 03/18/2017 History of pulmonary embolus (PE) 03/18/2017 Abnormal mammogram 02/24/2017 Cerebral arterial aneurysm 12/05/2014 Dizziness 09/25/2014 Overview (09/09/2016): Dizziness Ventricular premature beats 10/20/2013 Overview (09/08/2016): PVC (premature ventricular contraction) Encounters Date Type Department Care Team Description 05/08/2024 2:50 PM ESTHETICIAN/OWNER Lab [facility] [address] [address] [address] Nonrheumatic aortic valve stenosis 05/08/2024 2:00 PM ESTHETICIAN/OWNER Office Visit [facility] [address] [place] [address] Ventricular premature beats (Primary Dx); Nonrheumatic aortic valve stenosis 05/08/2024 12:00 PM ESTHETICIAN/OWNER Ancillary Procedure [facility] [address] [place] [address] Nonrheumatic aortic valve stenosis 05/08/2024 Telephone [facility] [facility] 8[address] [place] [address] [place] [phone] Felisa Mcnulty MD 04/30/2024 Orders Only [facility] Cardiology [address] [place] [address] [place] [phone] Zachary Kumar MD PAF (paroxysmal atrial fibrillation) (CMS/HCC) (HCC) (Primary Dx); Tachy-jered syndrome (CMS/HCC) (HCC); 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 (CMS/HCC) (HCC) 04/27/2024 7:00 AM ESTHETICIAN/OWNER Ancillary Procedure [facility] Cardiology [address] [place] [address] [place] [phone] Cardiac pacemaker in situ (Primary Dx); PAF (paroxysmal atrial fibrillation) (CMS/HCC) (HCC); Tachy-jered syndrome (CMS/HCC) (HCC) 04/26/2024 Telephone [facility] Cardiology [address] [place] [address] [place] [phone] Zachary Kumar MD from Last 3 Months Surgical History Surgery Date Site/Laterality Comments ANGIO SELECTIVE CAROTID DIRECTOR OF EMERGENCY NURSING RIGHT 02/28/2020 Right INSERT / REPLACE / REMOVE PACEMAKER Medical History Medical History Date Comments Hx Other Medical PVCs, and dysli pidemia, history of SVT, hypothyro Hypertension Atrial fibrillation (CMS/HCC) (HCC) SSS (sick sinus syndrome) (CMS/HCC) (HCC) CKD (chronic kidney disease) SSS (sick sinus syndrome) (CMS/HCC) (HCC) Cerebral aneurysm coiled DVT (deep venous thrombosis) (CMS/HCC) (HCC) Social History Tobacco Use Types Packs/Day Years Used Date Smoking Tobacco: Former Cigarettes Q uit: 03/18/1980 Smokeless Tobacco: Never Tobacco Cessation:Counseling Given: Not Answered Alcohol Use Standard Drinks/Week Comments Yes 7 (1 standard drink = 0.6 oz pur e alcohol) Comments Unknown Sex and Gender Information Value Date Recorded Sex Assigned at Not on file Legal Sex Female 6:09 AM ESTHETICIAN/OWNER Gender Identity Not on file Sexual Orientation Not on file Obstetrics History Last Filed Vital Signs Vital Sign Reading Time Taken Comments Blood Pressure 175/133 05/08/2024 1:42 PM ESTHETICIAN/OWNER Pulse 68 05/08/2024 1:42 PM ESTHETICIAN/OWNER Temperature 36.5 C (97.7 F) 02/28/2020 11:31 AM CDT Respiratory Rate 18 01/11/2023 10:38 AM CDT Oxygen Saturation 99% 05/08/2024 1:42 PM ESTHETICIAN/OWNER Inhaled Oxygen Concentration - - Weight 59 kg (130 lb) 05/08/2024 1:42 PM ESTHETICIAN/OWNER Height 162.6 cm (5' 4 ) 05/08/2024 1:42 PM ESTHETICIAN/OWNER Body Mass Index 22.31 05/08/2024 1:42 PM ESTHETICIAN/OWNER Plan of Treatment Health Maintenance Due Date Last Done Comments Depression Screening 1935 DTaP/Tdap/Td Vaccine (1 - Tdap) 08/16/1947 Hepatitis B Screening 1953 Zoster Vaccine (1 of 2) 08/16/1955 Well Visit 65+ 2001 Pneumococcal vaccine 65+ (2 of 2 - PPSV23 or PCV20) 11/15/2014 09/20/2014 Fall Risk Assessment 02/27/2021 02/28/2020, 11/09/19 20 Influenza Vaccine (#1) 2024 2, 05/16/2021, 03/21/2018, Additional history exists Medical Devices Implanted Type Area Check Totaler Device Identifier Shelf Expiration Date Model / Serial / Lot [employer] [id number] Device Closure Angio-Seal Vip Bondek-Plus Polyglyd L70 Cm Od6 Fr Odsec.035 In Vascular - [id number] Implanted:Qty: 1 on 02/28/2020 at [facility] [employer] 10/03/2020 [id number] / / [id number] Procedures Procedure Name Priority Date/Time Associated Diagnosis Comments EGFR Routine 05/08/2024 3:02 PM ESTHETICIAN/OWNER Nonrheumatic aortic valve stenosis DIFFERENTIAL AUTO Routine 05/08/2024 3:0 2 PM ESTHETICIAN/OWNER Nonrheumatic aortic valve stenosis PRO B-TYPE NATRIURETIC PEPTIDE Routine 05/08/2024 3:02 PM ESTHETICIAN/OWNER Nonrheumatic aortic valve stenosis BASIC METABOLIC PANEL Routine 05/08/2024 3:02 PM ESTHETICIAN/OWNER Nonrheumatic aortic valve stenosis CBC WITH AUTO DIFFERENTIAL Routine 05/08/2024 3:02 PM ESTHETICIAN/OWNER Nonrheumatic aortic valve stenosis ECG 12-LEAD Routine 05/08/2024 1:37 PM ESTHETICIAN/OWNER Ventricular premature beats TRANSTHORACIC ECHO (TTE) COMPLETE W DOPPLER/CF WO CONTRAST Routine 05/08/2024 1:15 PM ESTHETICIAN/OWNER Nonrheumatic aortic valve stenosis DEVICE CHECK - REMOTE Routine 04/30/2024 10:33 AM ESTHETICIAN/OWNER PAF (paroxysmal atrial fibrillation) (CMS/HCC) (HCC) Tachy-jered syndrome (CMS/HCC) (HCC) from Last 3 Months Results * (ABNORMAL) eGFR (05/08/2024 3:02 PM ESTHETICIAN/OWNER) eGFR 25(L) >=60 mL/min/1. 73 m2 Comment: [...] last reviewed 2021. Blood 05/08/2024 3:02 PM ESTHETICIAN/OWNER 05/08/2024 4:42 PM ESTHETICIAN/OWNER Juan Grossman MD LAB BLOOD ORDERABLES Final Result [facility] [address] [facility]. [place] [address] * Differential, auto (05/08/2024 3:02 PM ESTHETICIAN/OWNER) Neutrophil abs 3.9 1.5 - 6.5 K/cumm Imm gran abs 0.0 0.0 - 0.1 K/cumm [facility] Lymphocyte abs 1.8 0.8 - 3.3 K/cumm [facility] Monocyte abs 0.5 0.2 - 0.8 K/cumm [facility] Eosinophil abs 0.1 0.0 - 0.5 K/cumm [facility] Basophil abs 0.1 0.0 - 0.1 K/cumm [facility] Neutrophil pct 61.9 % [facility] Comment: Interpretive Data Percent cell count reference ranges are not reported, since discordance with absolute values may lead to misinterpretation of CBC data. Current Interpretive Data was last revised on 2017. Imm gran pct 0.2 % [facility] Comment: Interpretive Data Percent cell count reference ranges are not reported, since discordance with absolute values may lead to misinterpretation of CBC data. Current Interpretive Data was last revised on 2017. Lymphocyte pct 27.6 % [facility] Comment: Interpretive Data Percent cell count reference ranges are not reported, since discordance with absolute values may lead to misinterpretation of CBC data. Current Interpretive Data was last revised on 2017. Monocyte pct 7.3 % [facility] Comment: Interpretive Data Percent cell count reference ranges are not reported, since discordance with absolute values may lead to misinterpretation of CBC data. Current Interpretive Data was last revised on 2017. Eosinophil pct 2.2 % [facility] Comment: Interpretive Data Percent cell count reference ranges are not reported, since discordance with absolute values may lead to misinterpretation of CBC data. Current Interpretive Data was last revised on 2017. Basophil pct 0.8 % [facility] Comment: Interpretive Data Percent cell count reference ranges are not reported, since discordance with absolute values may lead to misinterpretation of CBC data. Current Interpretive Data was last revised on 2017. Blood 05/08/2024 3:02 PM ESTHETICIAN/OWNER 05/08/2024 4:43 PM ESTHETICIAN/OWNER Juan Grossman MD LAB BLOOD ORDERABLES Final Result [facility] [address] [facility]. [place] [address] * (ABNORMAL) Pro B-type natriuretic peptide (05/08/2024 3:02 PM ESTHETICIAN/OWNER) NT-proBNP 7,427(H) <=450 pg/mL Comment: Interpretive Comments: [...] et.al. Eur Heart J. 2006:27:330-337. 2. Opal PATTON, Mauricio LACEY. J. AM Jes Cardiol: Cardiovasc Imag. 2009;2: 216- 225. Interpretive Data Last Revised Date: 2018. Blood 05/08/2024 3:02 PM ESTHETICIAN/OWNER 05/08/2024 4:42 PM ESTHETICIAN/OWNER us Juan Grossman MD LAB BLOOD ORDERABLES Final Result [facility] [address] [facility]. [place] [address] * (ABNORMAL) CBC with auto differential (05/08/2024 3:02 PM ESTHETICIAN/OWNER) Pathologist [facility] WBC 6.3 3.8 - 9.9 K/cumm Hgb 14.2 11.9 - 15.5 g/dL [facility] W Hct 45.6(H) 35.6 - 45.5 % [facility] Plt 122(L) 150 - 400 K/cumm [facility] Comment:Consistent with prev ious result. MPV 10.7 9.1 - 12.3 fL [facility] RBC 4.62 3.90 - 5.20 M/cumm [facility] MCV 98.7(H) 81.3 - 96.4 fL [facility] MCH 30.7 27.1 - 33.3 pg [facility] W MCHC 31.1(L) 32.3 - 35.7 g/dL [facility] W RDW CV 14.1 11.1 - 14.9 % [facility]CH RDW SD 50.8(H) 35.7 - 48.1 fL [facility] NRBC abs 0.00 0.00 - 0.01 K/cumm [facility] Blood 05/08/2024 3:02 PM ESTHETICIAN/OWNER 05/08/2024 4:43 PM ESTHETICIAN/OWNER Juan Grossman MD LAB BLOOD ORDERABLES Final Result [facility] [address] [facility]. [place] [address] * (ABNORMAL) Basic metabolic panel (05/08/2024 3:02 PM ESTHETICIAN/OWNER) Sodium 143 135 - 145 mmol/L Potassium, pl 4.7 3.3 - 4.9 mmol/L [facility] Chloride 106 97 - 110 mmol/L [facility] CO2 24 22 - 32 mmol/L [facility] Anion gap 13 2 - 15 mmol/L [facility] BUN 38(H) 6 - 25 mg/dL [facility] Creatinine 1.89(H) 0.60 - 1.10 mg/dL [facility] Glucose 99 70 - 199 mg/dL [facility] Comment: Interpretive Data Fasting glucose >/= 126 [...] 2022. Calcium 10.1 8.5 - 10.3 mg/dL [facility] Blood 05/08/2024 3:02 PM ESTHETICIAN/OWNER 05/08/2024 4:42 PM ESTHETICIAN/OWNER us Juan Grossman MD LAB BLOOD ORDERABLES Final Result Performing Organization Address [facility]/ZIP Co de Phone Number [facility] [address] [facility]. [place] [employer] [address] * ECG 12 lead (05/08/2024 1:37 PM ESTHETICIAN/OWNER) us Felisa Mcnulty MD ECG ORDERABLES Final Result * TRANSTHORACIC ECHO (TTE) COMPLETE W DOPPLER/CF WO CONTRAST (05/08/2024 1:15 PM ESTHETICIAN/OWNER) LV EF 60 % CARDIOREPORT Anatomical Region Laterality Modality Ultrasound 05/08/2024 12:0 0 PM ESTHETICIAN/OWNER Narrative 05/11/2024 9:40 AM ESTHETICIAN/OWNER Patient name: Nelia Peterson Date of test: 05/08/2024 Type of test: TTE w/Doppler Hospital #: 0 Date of : 1935 (F) Machine Slat Basket Maker: MARY ELLEN Hill Referring Physician: FELISA MCNULTY MD Contrast Agent: Unable to obtain IV access for contrast administration. Contrast Administered by: Supervised/Interpreted by: Felisa Mcnulty MD Diagnosis: Location: [facility] Reason for test: MV Structure: Normal, MV [...] 2=Hypo 3=Akinetic 4=Dyskin./Aneurysm 0=Not visualized) Parasternal Long [place]:MAS=1 BAS=1 MIL=1 DIMPLE=1 Parasternal Short [place]:MAS=1 MIS=1 FL=1 MIL=1 MAL=1 MA=1 Apical 4 Chambers:=1 MIS=1 BIS=1 BAL=1 MAL=1 AL=1 AC=1 Apical 2 Chambers:AI=1 FL=1 BI=1 BA=1 MA=1 AA=1 AC=1 LV Global [...] MD By signing this report, the attending screw machine repairer certifies that he or she has personally supervised and interpreted the echocardiogram and has reviewed and or edited and agrees with the written comments contained within the report. Procedure Note Felisa Mcnulty MD - 05/11/2024 Patient name: Nelia Peterson Date of test: 05/08/2024 Type of test: TTE w/Doppler [facility] #: 0 Date of : 1935 (F) Machine Slat Basket Maker: MARY ELLEN Hill Referring Physician: FELISA MCNULTY MD Contrast Agent: Unable to obtain IV access for contrast administration. Contrast Administered by: Supervised/Interpreted by: Felisa Mcnulty MD Diagnosis: Location: Heart [facility] Reason for test: MV Structure: Normal, MV [...] 2=Hypo 3=Akinetic 4=Dyskin./Aneurysm 0=Not visualized) Parasternal Long [place]:MAS=1 BAS=1 MIL=1 DIMPLE=1 Parasternal Short [place]:MAS=1 MIS=1 FL=1 MIL=1 MAL=1 MA=1 Apical 4 Chambers:=1 MIS=1 BIS=1 BAL=1 MAL=1 AL=1 AC=1 Apical 2 Chambers:AI=1 FL=1 BI=1 BA=1 MA=1 AA=1 AC=1 LV Global [...] TV, normal PV. Diastolic function: indeterminate di ; di 0.29 CONTRAST: Unable to obtain IV [...] MD By signing this report, the attending screw machine repairer certifies that he or she has personally supervised and interpreted the echocardiogram and has reviewed and or edited and agrees with the written comments contained within the report. us Felisa Mcnulty MD CV ECHO PROCEDURES Final Resul t * DEVICE CHECK - REMOTE (04/30/2024 10:33 AM ESTHETICIAN/OWNER) Anatomical Region Laterality Modality Other Narrative 07/02/2024 8:52 AM ESTHETICIAN/OWNER Medtronic Micra AV Dual Leadless Pacemaker. Dx; Jered/Tachy, PAF. DOI 09/20/2022-Fleissner. [place]. Carelink remote monitoring. Routine VDD Pacemaker Remote. Transmission attached. Battery status: 3.02 V, > 8.0 years remaining battery life to BARRIE. Stable electrode impedance, pacing and sensing thresholds. Presenting rhythm: AMVP AM/CONTINUOUS IMPROVEMENT BLACK BELT- 17.8 %, CONTINUOUS IMPROVEMENT BLACK BELT- 54.5 % Medications: Eliquis 2.5 mg, sotalol 80 mg See scanned report. Office pacemaker follow up: 9 months Medtronic remote f/u 08/01/24. us Zachary Kumar MD CV CARDIAC SERVICES PROCE FRANCK Final Result from Last [address] [place] [address] [address] [place] [address] MEDICARE T MEDICARE Advance Directives For more information, please contact: [phone] * Full Code (Latest Code Status on File) Date Activated Date Inactivated Comments 02/28/2020 11:26 AM 02/28/2020 5:54 PM Care Teams Roll Filler Relationship Specialty Start Date End Date Andrés Viveros MD PCP - General 03/17/17
--- OUTSIDE RECORDS SUMMARY | 2024-07-11 19:33 | XMS_ITS | Patient Health Summary ---
Author Organization [facility] Address [address] [place] [address] Care Team Providers Care Air Intercept Controller Name Role Phone Chris Styles Primary Care Provider Peggy e Note from [facility],non-owned Affiliates and Associated Physician Practices is amultiple site organization consisting of ambulatory clinics and hospital sitesin [place], [place], [place] and [place]. This disclosure is being madepursuant to the Care Everywhere program and may not contain all information available regarding this patient. Last updated 18.[facility] Social History Tobacco Use Types Packs/Day Years Used Date Smoking Tobacco: Never Assessed Sex and Gender Information Value Date Recorded Sex Assigned at Not on file Gender Identity Not on file Sexual Orientation Not on file Procedures * DERMATOPATHOLOGY(Performed 09/29/2021) * DERMATOPATHOLOGY(Performed 01/28/2021) * DERMATOPATHOLOGY(Performed 11/19/2015) Results * DERMATOPATHOLOGY (09/29/2021 12:00 AM CDT) Only the most recent of3 resultswithin the time period is included. Case Report Dermatopathology Report Case: [id number] Authorizing Provider: Jordan Lewis MD Collected: 09/29/2021 12:00 AM Ordering Location: [facility] DermPath Lab Received: 09/30/2021 02:16 PM Pathologist: Ayesha Bergman MD Specimen: Skin, top left helix rim 2 1:36 PM CDT DERMATOPATHOLOGY LABORATORY Final Diagnosis Specimen A. 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 Please Check Margins. 1:36 PM CDT DERMATOPATHOLOGY LABORATORY Gross Description Specimen A: Received is one formalin filled container labeled with the patient's name and designated top left helix rim. The specimen consists of a shave biopsy measuring [id number]. The specimen is inked and bisected. Jar 0. 1:36 PM CDT DERMATOPATHOLOGY LABORATORY Microscopic Description [...] characteristic determined by the Dermatopathology Laboratory at [facility], directed by Dr. Freya Harris. These tests need not be, and therefore are not, approved by the [place] Food and Drug Administration. The tests are used for clinical purposes. Billing Codes Specimen Charges Stain Charges 04438 1 1:36 PM CDT DERMATOPATHOLOGY LABORATORY Embedded Images 1:36 PM CDT DERMATOPATHOLOGY LABORATORY Pathology/Cytolog y TISSUE SPECIMEN FROM SKIN / Unknown 09/29/2021 09/30/2021 2:16 PM CDT Jordan Lewis MD LAB - PATHOLOGY/CYTO LOGY ORDERABLES DERMATOPATHOLOGY LABORATORY [facility] - Department of Dermatology [facility] Specialized Medicine [address] [place] [address], [address] [phone] Care Teams Air Intercept Controller Relationship Specialty Start Date End Date Chris Styles Update Information PCP - General 11/27/19
[2024-07-11 20:00] LABS: Add Urine Microscopic? YES; Appearance Urine Turbid (Clear); Bacteria Urine 4+ /hpf; Bilirubin Urine 1+ (Negative); Blood Urine 3+ (Negative); Color Urine Red (Yellow); Glucose Urine UA Negative (Negative); Ketones Urine Negative (Negative); Leukocyte Esterase Ur 3+ LEU/UL (Negative); Need Manual Microscopic Reviewed; Nitrate Urine Positive (Negative); Non Pathogenic Casts 0-2; Protein Urine 3+ mg/dL (Negative); RBC Urine >100 /hpf (0-2); Specific Grav Ur 1.012 (1.001-1.035); Squamous Epithelial Cell Urine None Seen /hpf (Few); Urobilinogen Urine 0.2 mg/dL (<2.0); WBC Urine >100 /hpf (0-3)
--- NOTE | 2024-07-11 22:15 | ED.WEAKNESS ---
HPI - Weakness General Chief complaint: Weakness Stated complaint: dizzy and fell, hx of afib and pacemaker Time Seen by Provider: 07/11/24 19:17 Source: patient Mode of arrival: EMS Limitations: no limitations History of Present Illness HPI Narrative: This is a 88-year-old female who presents to the ED via EMS from home for chief complaint of neuro syncopal episode today that occurred this morning. Patient reports that she was feeling very generally weak with lightheadedness and dizziness. States that she has concern for UTI because she had malodorous urine and and increase in frequency. States that she has dealt with a lot of UTIs in the past and has frequent surgical treatment of a left-sided ureteral stent with Dr. Shaikh. Related Data Home Medications ?Medication ?Instructions ?Recorded ?Confirmed ?Last Taken ?Type bupropion HCl 150 mg tablet,12 hr 150 mg PO BID 11/19/19 04/20/24 04/19/24 History sustained-release cholecalciferol (vitamin D3) 50 50 mcg PO DAILY 11/19/19 04/20/24 04/18/24 History mcg (2,000 unit) capsule (Vitamin D3) levothyroxine 50 mcg tablet 50 mcg PO QAM 11/19/19 04/20/24 04/19/24 History pravastatin 80 mg tablet 80 mg PO HS 11/19/19 04/20/24 04/19/24 History apixaban 2.5 mg tablet (Eliquis) 2.5 mg PO BID 11/19/22 04/20/24 04/15/24 History ferrous sulfate 325 mg (65 mg 325 mg PO BID 05/09/23 04/20/24 04/18/24 History iron) tablet bisacodyl 5 mg tablet,delayed 5 mg PO QAM PRN Constipation 04/09/24 04/20/24 04/19/24 History release (Laxative (bisacodyl)) sotalol 80 mg tablet 40 mg PO DAILY 04/09/24 04/20/24 04/19/24 History Allergies Allergy/AdvReac Type Severity Reaction Status Date / Time codeine AdvReac Mild Nausea Verified 07/11/24 18:49 Review of Systems Review of Systems: All systems as dictated in HPI [facility] Past Medical History Medical History Jered-tachy syndrome Cerebral aneurysm Status post coil embolization. 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 Hemorrhoids Histoplasmosis Hyperlipidemia Hypertension Hypothyroidism Intraoperative ureteral injury (07/2021) Kidney stones Including known right staghorn calculus. Mild aortic stenosis Mild pulmonary hypertension Mitral regurgitation mod to severe Moderate mitral regurgitation Nonspecific colitis Pacemaker Paroxysmal atrial fibrillation Pulmonary embolism Surgical History Surgical History History of arthroplasty of right knee History of cataract extraction History of colonoscopy with polypectomy History of cystoscopy History of lumbar surgery History of tonsillectomy and adenoidectomy History of total hysterectomy with bilateral salpingo-oophorectomy (BSO) Status post coil embolization of cerebral aneurysm Family History Family History Mother , in her 70s Hypertension Father Hypertension Acute myocardial infarction Social History Social History Social History: Surrogate decision maker: susanna Rothman. Code status: Full code. Smoking packs per day: 0.25 Smoking cigarettes per day: 5.0 Years smoked: 15 Smoking pack-years: 3.75 Smoking status: Former smoker Tobacco type: cigarettes Second hand tobacco smoke exposure: No Smoking end date: 06/06/74 Alcohol intake: current Drinks per week: 1 Alcohol use details: 6 oz of wine. Substance use: never Substance use type: does not use Do You Feel Safe in your Home?: Yes Lack of Transportation: No Lack of Food: Never True Current Housing: I Have Housing Concerned About Future Housing: No Difficulty Paying Gas/Electric Bills: No Difficulty Paying for Meds: No Currently Unemployed: No Education: Master's Degree or Higher Difficulty w/ Childcare or Family Care: No Living arrangements: alone Additional living arrangements comments: as of September 2020. She and her had 3 children, all whom are . Additional occupation/education comments: Retired. Spiritual care concerns: No Exam Narrative: GENERAL: Well-appearing, well-nourished, and in no acute distress. HEAD: Normocephalic, atraumatic. EYES: PERRLA and EOMI. ENT: Nares clear, no rhinorrhea or epistaxis. Mucous membranes moist. Oropharynx without tonsillar hypertrophy exudate or other lesions. NECK: Supple. No adenopathy or masses. CHEST: No respiratory distress. Clear to auscultation. No wheezes rales or rhonchi HEART: Regular rate and rhythm. No murmur heard. Normal peripheral pulses. ABDOMEN: Soft, nontender, nondistended, normal active bowel sounds. MSK: Normal range of motion. No edema. SKIN: Warm, dry, no rash. NEURO: Alert and oriented x4. No focal deficits. PSYCH: Normal mood and affect. Course Vital Signs Vital signs: Vital Signs Temperature 97.4 F L 07/11/24 18:42 Pulse Rate 59 L 07/11/24 18:42 Respiratory Rate 20 07/11/24 18:42 Blood Pressure 199/89 H 07/11/24 18:42 Pulse Oximetry 100 07/11/24 18:42 Oxygen Delivery Room Air 07/11/24 18:42 Temperature 97.4 F L 07/11/24 18:42 Pulse Rate 61 07/11/24 22:16 Respiratory Rate 11 L 07/11/24 22:16 Blood Pressure 174/148 H 07/11/24 22:16 Pulse Oximetry 100 07/11/24 22:16 Oxygen Delivery Room Air 07/11/24 18:42 MDM - Weakness MDM Narrative Medical decision making narrative: This is a 88-year-old female who presents to the ED for chief complaint of weakness and a fall today. She is complaining of urinary symptoms and concern for UTI. Vitals show elevated blood pressure but otherwise are unremarkable. EKG shows ventricularly paced rhythm. Lab work shows mild leukopenia of 4.3. CMP remarkable for slightly elevated creatinine at 1.91 as well as BUN of 35. Urinalysis shows overt infection with nitrite positive urine, 3+ leuks and greater than 100 wbc's. Chest XR stable granulomatous disease seen prior. CT abdomen pelvis without con: IMPRESSION: Left-sided hydronephrosis despite left-sided double-J stent in good position for which stent obstruction is suspected. Calcified debris surrounding the proximal third of the double-J stent. Right-sided staghorn calculus. Left-sided 18 mm renal pelvis stone, both unchanged from 12/02/2023. Cholelithiasis without cystitis. Findings suggesting prior granulomatous disease. Discussed the case with Urology, Dr. Brennan who recommends getting a Bui catheter placed and to treat the UTI. States they will consult on the patient in the hospital for this possibly obstructed left stent. Patient was started on ceftriaxone and fluids here in the ED. Discussed the case with Dr. Zarco (hospitalist) who will admit the patient to the medical floor. Lab Data 07/11/24 18:56 07/11/24 18:56 Labs: Lab Results 07/11/24 Range/Units 18:56 WBC 4.3 L (4.5-10.0) K/mm3 RBC 4.31 (4.2-5.4) M/mm3 Hgb 13.4 (12.0-15.0) g/dL Hct 41.8 (37.0-47.0) % MCV 97.0 (80-100) fl MCH 31.1 (26-34) pg MCHC 32.1 (32-36) g/dl RDW 13.1 (11.5-14.5) % Plt Count 115 L (150-375) k/mm3 MPV 10.4 (7.4-10.4) fl Immature Gran % (Auto) 0.2 (0-0.5) % Neut % (Auto) 61.4 (45.5-73.1) % Lymph % (Auto) 24.0 (18.3-44.2) % [place] % (Auto) 9.1 H (2.6-8.5) % Eos % (Auto) 4.4 (0-4.4) % Baso % (Auto) 0.9 (0.2-1.2) % Lymph # (Auto) 1.03 (0.9-3.2) K/mm3 [place] # (Auto) 0.4 (0.1-0.6) K/mm3 Eos # (Auto) 0.2 (0-0.3) K/mm3 Baso # (Auto) 0.0 (0.0-0.1) K/mm3 Abs Immat Gran (auto) 0.01 (0.00-0.031) K/mm3 Absolute Neuts (auto) 2.6 (1.3-6.7) K/mm3 Absolute Nucleated RBC 0.000 (0.0-0.012) K/mm3 Nucleated RBC % 0.0 (0.0-0.2) % % Immature Plt Fraction 2.5 (0.9-11.2) % Sodium 139 (137-145) mmol/L Potassium 4.8 (3.4-5.0) mmol/L Chloride 107 (98-107) mmol/L Carbon Dioxide 20 L (22-30) mmol/L Anion Gap 12 (4-12) mmol/L BUN 35 H (7-17) mg/dL Creatinine 1.91 H (0.7-1.0) mg/dL Estim Creat Clear Calc Not Reportable Estimated GFR 25 L (59 - ) Glucose 87 (65-110) mg/dL Calcium 9.1 (8.4-10.2) mg/dL Total Bilirubin 0.6 (0.2-1.3) mg/dL AST 24 (14-36) U/L ALT 13 (6-35) U/L Alkaline Phosphatase 79 (38-126) U/L Total Protein 6.0 L (6.3-8.2) g/dL Albumin 3.7 (3.5-5.1) g/dL Urine Color Red H (Yellow) Urine Appearance Turbid H (Clear) Urine pH 7.0 (5.0-9.0) Ur Specific [place] 1.012 (1.001-1.035) Urine Protein 3+ H (Negative) mg/dL Urine Glucose (UA) Negative (Negative) mg/dL Urine Ketones Negative (Negative) mg/dL Ur Blood (Man) 3+ H (Negative) Urine Nitrate Positive H (Negative) Urine Bilirubin 1+ H (Negative) Urine Urobilinogen 0.2 (<2.0) mg/dL Add Ur Microanalysis Reviewed Leukocyte Esterase Rfl 3+ H (Negative) SUMMER/UL Urine RBC >100 H (0-2) /hpf Urine WBC >100 H (0-3) /hpf Ur Squamous Epith Cells None seen (Few) /hpf Urine Bacteria 4+ H /hpf Urine Casts 0-2 ECG Data EKG #1: ECG completion date: 07/11/24 ECG completion time: 18:50 Prior ECG tracings: available for review Interpretation: Electronic ventricular pacemaker Rate 61 A flutter no longer present when compared to ECG 12/2023 Discharge Plan Discharge Clinical Impression: UTI (urinary tract infection), Obstruction of urinary stent Patient Disposition: Still a Patient Condition: Stable Patient Language: Korean Prescriptions: No Action bupropion HCl 150 mg Tablet Sustained-Release 12 Hr 150 mg PO BID pravastatin 80 mg tablet 80 mg PO HS levothyroxine 50 mcg tablet 50 mcg PO QAM cholecalciferol (vitamin D3) [Vitamin D3] 50 mcg (2,000 unit) Capsule 50 mcg PO DAILY tramadol 50 mg tablet 50 mg PO Q6H PRN (Reason: pain) Qty: 20 0RF ferrous sulfate 325 mg (65 mg iron) tablet 325 mg PO BID Eliquis 2.5 mg tablet 2.5 mg PO BID Patient Comments: on hold per pt after 02/07/24 hydrocodone-acetaminophen 5-325 mg tablet 1 - 2 tablet PO Q6H PRN (Reason: pain) Qty: 20 0RF bisacodyl [Laxative (bisacodyl)] 5 mg tablet,delayed release (DR/EC) 5 mg PO QAM PRN (Reason: Constipation) sotalol 80 mg tablet 40 mg PO DAILY Follow-up/Referrals: Felice,Andrés Jasso MD [Primary Care Provider] -
[2024-07-11] MEDS: SODIUM CHLORIDE 0.9% IV 1,000 ML 75 ML IV CONT (23:33)
[2024-07-12] VITALS (10 sets, daily range): BP systolic 144–173; BP diastolic 60–88; PULSE 59–70; RESP 12–20; TEMP 36.4–36.7; O2SAT 94–100; BMI 22.6
--- NOTE | 2024-07-12 01:40 | ADMGEN ---
This patient, Nelia Peterson, was admitted to [facility] Surg Room 324-01. Patient/family oriented to hospital policies and general routines including ID bracelet, bed and alarms, visiting hours, pain management, procedures, bathroom and other care routines, personal items, smoking policy, room service/diet, and visiting hours. Information on how to activate the Rapid Response Team has been discussed. Patient/Family are encouraged to report perceived risks to care and to ask questions if they do not understand what they are told or what they should do.
--- NOTE | 2024-07-12 02:09 | P.HP_ITS ---
H&P: HPI History of Present Illness Date/Time: 07/11/24 23:50 Chief Complaint: ?I was so lightheaded I thought I was going to go down? Narrative: 88-year-old female with a past medical history of depression, paroxysmal atrial fibrillation on Eliquis, hypothyroidism, right staghorn kidney stone, chronic left recurrent kidney stones with chronic ureteral stent who presented to the ER with lightheadedness and hematuria. The patient reported that she felt well besides her depression and difficulties adjusting since her 3 years ago. She had gotten up earlier in the day and not ready to go to lunch with some of her friends. She noticed that she was extremely lightheaded. She also noticed some faint pink tinged and a strong odor and increased urinary frequency throughout the day. She denies any dysuria. She had not had any fevers or chills. She reports that she was still able to go out to lunch with her friends and had a good appetite. She denied any nausea or vomiting. She reports that she is having her chronic back pain that is exacerbated by laying in the ER bed. She denies any flank pain or tenderness. She reports that she has chronic ureteral stents in place and a Dr. Shaikh usually changes the stents every 4 months. Her last stent exchange was in April. CT scan in the ER demonstrated severe left hydronephrosis with the left double J-stent in appropriate position with obstruction likely due to calcified debris involving the proximal 1/3 of the stent. This appearance is similar to the patient's last CT at which time she had stent exchange by Dr. Shaikh. The patient reports that she has had depression since her . She voices concerns about her ability to keep up with her house work and maintenance on her house. She is voicing concerns that she may need to consider moving to a fpc community. Review of Systems 2 Review of Systems: 12 systems were reviewed with pertinent positives and negatives per HPI. Except as documented in the HPI, all other systems were reviewed and are negative. [facility] Past Medical History Medical History (Updated 07/12/24 @ 03:08 by Antonina Zarco DO) Orthostatic hypotension Retroperitoneal hematoma November 2023 Diverticulitis May 2023 Malfunction of nephrostomy tube With subsequent removal Hearing loss, bilateral Jered-tachy syndrome Pacemaker (09/04/22) Wireless pacemaker Moderate mitral regurgitation Mild pulmonary hypertension Heart failure with preserved ejection fraction EF was 60 to 65% in 07/2021. Mild aortic stenosis Chronic anemia Diastolic congestive heart failure Current use of usp anticoagulation Mitral regurgitation mod to severe Intraoperative ureteral injury (07/2021) Endometriosis Hyperlipidemia Hypothyroidism Chronic kidney disease Stage IV Degenerative disc disease Pulmonary embolism Kidney stones Including known right staghorn calculus. Depression Cerebral aneurysm Status post coil embolization. Hemorrhoids Histoplasmosis Paroxysmal atrial fibrillation Nonspecific colitis Dyslipidemia Hypertension Surgical History Surgical History (Updated 07/12/24 @ 03:08 by Antonina Zarco DO) Status post cataract extraction of both eyes with insertion of intraocular lens History of cystoscopy History of colonoscopy with polypectomy Status post coil embolization of cerebral aneurysm History of lumbar surgery History of cataract extraction History of arthroplasty of right knee Complicated by DVT History of total hysterectomy with bilateral salpingo-oophorectomy (BSO) History of tonsillectomy and adenoidectomy Family History Family History Mother , in her 70s Hypertension Father Hypertension Acute myocardial infarction Social History Social History (Updated 07/12/24 @ 03:14 by Antonina Zarco DO) Social History: The patient lives at home alone. She was for 68 years but has been since September 2020.. She had 2 daughters 1 of which of SIDS and another dark who of sudden cardiac in her 30s. She had a son who in his 30s of liver disease. 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 She reports that she gave up her license as she is not comfortable driving anymore. Surrogate decision maker: Kerri Horner (friend) Code status: DNR/DNI (however patient reports that she would be okay with medications for blood pressure support and with noninvasive ventilator if needed. She would not want in feeding to. She wants to be pain free at the time of ) but then the patient told nursing staff that she was okay with compressions but not a lot of compressions. Nursing staff did not bother to tell the patient that compressions would be painful. Smoking packs per day: 0.25 Smoking cigarettes per day: 5.0 Years smoked: 15 Smoking pack-years: 3.75 Smoking status: Former smoker Tobacco type: cigarettes Second hand tobacco smoke exposure: No Smoking end date: 06/06/69 Alcohol intake: current Drinks per week: 1 Alcohol use details: 6 oz of wine. Substance use: never Substance use type: does not use Do You Feel Safe in your Home?: Yes Lack of Transportation: No Lack of Food: Never True Current Housing: I Have Housing Concerned About Future Housing: No Difficulty Paying Gas/Electric Bills: No Difficulty Paying for Meds: No Currently Unemployed: No Education: Master's Degree or Higher Difficulty w/ Childcare or Family Care: No Living arrangements: alone Additional living arrangements comments: She and her had 3 children, all whom are . Additional occupation/education comments: Retired. Spiritual care concerns: No Meds Home Medications and Allergies Home Medications ?Medication ?Instructions ?Recorded ?Confirmed ?Type bupropion HCl 150 mg tablet,12 hr 150 mg PO BID 11/19/19 07/12/24 History sustained-release cholecalciferol (vitamin D3) 50 50 mcg PO DAILY 11/19/19 07/12/24 History mcg (2,000 unit) capsule (Vitamin D3) levothyroxine 50 mcg tablet 50 mcg PO QAM 11/19/19 07/12/24 History pravastatin 80 mg tablet 80 mg PO HS 11/19/19 07/12/24 History apixaban 2.5 mg tablet (Eliquis) 2.5 mg PO BID 11/19/22 07/12/24 History ferrous sulfate 325 mg (65 mg 325 mg PO BID 05/09/23 07/12/24 History iron) tablet bisacodyl 5 mg tablet,delayed 5 mg PO QAM PRN Constipation 04/09/24 07/12/24 History release (Laxative (bisacodyl)) sotalol 80 mg tablet 40 mg PO BID 04/09/24 07/12/24 History hydroxyzine HCl 10 mg tablet 10 mg PO HS itching 07/12/24 07/12/24 History Allergies Allergy/AdvReac Type Severity Reaction Status Date / Time codeine AdvReac Mild Nausea Verified 07/11/24 18:49 Vital Signs Vital Signs - 24 hr 07/11/24 18:42 07/11/24 18:51 07/11/24 18:51 Temperature 97.4 F L Pulse Rate 59 L 87 81 Respiratory Rate 20 14 Blood Pressure 199/89 H Pulse Oximetry 100 100 Oxygen Delivery Room Air 07/11/24 20:17 07/11/24 20:31 07/11/24 20:32 Temperature Pulse Rate 61 60 60 Respiratory Rate 14 13 14 Blood Pressure 180/80 H 174/75 H Pulse Oximetry 99 100 99 Oxygen Delivery 07/11/24 20:47 07/11/24 21:02 07/11/24 21:16 Temperature Pulse Rate 61 61 61 Respiratory Rate 14 15 12 Blood Pressure 65/37 L 178/74 H 169/79 H Pulse Oximetry 100 99 100 Oxygen Delivery 07/11/24 21:31 07/11/24 22:00 07/11/24 22:01 Temperature Pulse Rate 60 62 60 Respiratory Rate 14 9 L 10 L Blood Pressure 173/75 H 154/72 H Pulse Oximetry 100 100 100 Oxygen Delivery 07/11/24 22:16 07/11/24 22:17 07/11/24 22:31 Temperature Pulse Rate 61 67 62 Respiratory Rate 13 13 13 Blood Pressure 174/148 H 180/72 H Pulse Oximetry 100 100 100 Oxygen Delivery 07/11/24 22:45 07/11/24 23:00 07/11/24 23:01 Temperature Pulse Rate 61 60 61 Respiratory Rate 14 19 14 Blood Pressure 168/74 H Pulse Oximetry 100 99 99 Oxygen Delivery 07/11/24 23:15 07/11/24 23:30 07/11/24 23:31 Temperature Pulse Rate 61 63 61 Respiratory Rate 17 17 23 H Blood Pressure 134/119 H Pulse Oximetry 100 100 Oxygen Delivery Exam 2 Narrative: Weight 59.9 kg BMI 22.7 Const: Other: No acute distress, thin body habitus, appears stated age HENMT: Other: Mucous membranes are tacky, no oral pharyngeal erythema, upper dentures in place, intact intention in lower jaw, head is normocephalic atraumatic Eyes: Other: Pupils are equal and reactive, no scleral icterus, no conjunctival pallor Neck: Other: No JVD, no lymphadenopathy Resp: Other: Clear to auscultation bilaterally, no increased work of breathing Cardio: Other: Regular rate, regular rhythm, 2+ bilateral radial pedal pulses, 3/6 systolic murmur noted GI: Other: Soft, nontender, nondistended, positive bowel sounds : Other: Bui catheter in place with turbid dark red urine Back/Spine/Pelvis: Other: No CVA tenderness, mild thoracic kyphosis Skin: Other: No pallor, non jaundice Neuro: Other: Alert orient x4, speech is clear, mildly hard of hearing, no facial asymmetry, no localizing neurologic deficits noted during the course of conversation Extrem: Other: No clubbing, cyanosis or edema Psych: Other: Appropriate mood and affect, pleasant and cooperative, judgment and insight intact H&P: Results Labs Labs: Laboratory Tests 07/11/24 18:56 07/11/24 18:56 07/11/24 18:56 WBC 4.3 L RBC 4.31 Hgb 13.4 Hct 41.8 MCV 97.0 MCH 31.1 MCHC 32.1 RDW 13.1 Plt Count 115 L MPV 10.4 Immature Gran % (Auto) 0.2 Neut % (Auto) 61.4 Lymph % (Auto) 24.0 Stephens % (Auto) 9.1 H Eos % (Auto) 4.4 Baso % (Auto) 0.9 Lymph # (Auto) 1.03 Stephens # (Auto) 0.4 Eos # (Auto) 0.2 Baso # (Auto) 0.0 Abs Immat Gran (auto) 0.01 Absolute Neuts (auto) 2.6 Absolute Nucleated RBC 0.000 Nucleated RBC % 0.0 % Immature Plt Fraction 2.5 Sodium 139 Potassium 4.8 Chloride 107 Carbon Dioxide 20 L Anion Gap 12 BUN 35 H Creatinine 1.91 H Estim Creat Clear Calc Not Reportable Estimated GFR 25 L Glucose 87 Calcium 9.1 Total Bilirubin 0.6 AST 24 ALT 13 Alkaline Phosphatase 79 Total Protein 6.0 L Albumin 3.7 Urine Color Red H Urine Appearance Turbid H Urine pH 7.0 Ur Specific [place] 1.012 Urine Protein 3+ H Urine Glucose (UA) Negative Urine Ketones Negative Ur Blood (Man) 3+ H Urine Nitrate Positive H Urine Bilirubin 1+ H Urine Urobilinogen 0.2 Add Ur Microanalysis Reviewed Leukocyte Esterase Rfl 3+ H Urine RBC >100 H Urine WBC >100 H Ur Squamous Epith Cells None seen Urine Bacteria 4+ H Urine Casts 0-2 Impressions Chest X-Ray 07/11/24 19:27 IMPRESSION: Findings suggesting prior granulomatous disease, without focal infiltrate or effusion. Abdomen/Pelvis CT 07/11/24 20:21 IMPRESSION: Left-sided hydronephrosis despite left-sided double-J stent in good position for which stent obstruction is suspected. Calcified debris surrounding the proximal third of the double-J stent. Right-sided staghorn calculus. Left-sided 18 mm renal pelvis stone, both unchanged from 12/02/2023. Cholelithiasis without cystitis. Findings suggesting prior granulomatous disease. EKG: Electronic ventricular pacemaker with QTC of 517 Assessment and Plan Assessment and plan (1) Obstruction of urinary stent: Qualifiers: Encounter type: initial encounter Qualified Code(s): T83.193A - Other mechanical complication of other urinary stent, initial encounter Code(s): T83.193A - Other mechanical complication of other urinary stent, initial encounter Status: Acute (2) UTI (urinary tract infection): Qualifiers: Urinary tract infection type: acute pyelonephritis Qualified Code(s): N 10 - Acute pyelonephritis Code(s): N39.0 - Urinary tract infection, site not specified Status: Acute (3) Hematuria due to cystitis: Code(s): N30.91 - Cystitis, unspecified with hematuria Status: Acute (4) Retained ureteral stent: Code(s): Z96.0 - Presence of urogenital implants Status: Chronic (5) 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: Code(s): 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 Patient's ureteral stent appears to be of occluded. The patient's bladder was also distended on CT concerning for obstruction. Subsequently Bui catheter was placed in the ER. The patient is near time for usual stent exchange. The patient been started empiric antibiotic therapy with Rocephin. The last time she had a urine culture within our system that was positive for UTI a grew out pansensitive E coli this was almost 2 years ago. Urine cultures have been obtained and are pending. Urology has been consulted. Will hold the patient's Eliquis for short-term due to hematuria. The patient does have chronic kidney disease stage 4. The patient's kidney function appears to be stable. Patient does have mildly low white count likely secondary to suspected UTI. Patient was having a symptoms of lightheadedness she does have a history of orthostatic hypotension. Orthostatic vital signs have been ordered x1.Will give the patient 1 L IV fluid hydration at 75 mL an hour and will repeat CBC and electrolyte panel in a.m.. Will make patient NPO at midnight in case Urology wants to perform cystoscopy. Patient has been admitted as observation status. Quality VTE Prophylaxis VTE prophylaxis: mechanical ordered (SCDs) Hospitalist MIPS Advance Care Plan I have confirmed that the patient's Advanced Care Plan is present, code status is documented, or surrogate decision maker is listed in patient medical record.: Yes Medication Reconciliation I have utilized all available resources to obtain, update and review the patients current medications (includes all prescriptions, OTC, herbals, cannabis, and nutritional supplements).: Yes
--- NOTE | 2024-07-12 03:06 | PC.NURSE ---
Pt requested modified code status with no intubation. Code status entered by this RN and second RN health physics technician is Corina Roa.
[2024-07-12] MEDS: LEVOTHYROXINE SODIUM 50 MCG TABLET PO (06:13)
[2024-07-12 07:35] LABS: Hematocrit 36.3 % (37.0-47.0); Hemoglobin 11.9 g/dL (12.0-15.0); Immature Platelet Fraction Pct 2.5 % (0.9-11.2); Mean Corpuscular HGB Conc 32.8 g/dl (32-36); Mean Corpuscular Hemoglobin 31.2 pg (26-34); Mean Corpuscular Volume 95.3 fl (80-100); Mean Platelet Volume 10.6 fl (7.4-10.4); Platelet Count Result 102 k/mm3 (150-375); Red Blood Count 3.81 M/mm3 (4.2-5.4); Red Cell Distribution Width 13.2 % (11.5-14.5); White Blood Count 6.2 K/mm3 (4.5-10.0)
[2024-07-12 07:49] LABS: Anion Gap 10 mmol/L (4-12); Blood Urea Nitrogen 34 mg/dL (7-17); Calcium 9.3 mg/dL (8.4-10.2); Carbon Dioxide 22 mmol/L (22-30); Chloride 107 mmol/L (98-107); Estimated CRCL calculation 17 ml/min; Estimated Glomerular Filt Rate 26; Glucose 73 mg/dL (65-110); Potassium 4.3 mmol/L (3.4-5.0); Sodium 139 mmol/L (137-145)
--- NOTE | 2024-07-12 09:32 | WPDURCON ---
Assessment and Plan Assessment and plan (1) Retained ureteral stent: Code(s): Z96.0 - Presence of urogenital implants Status: Chronic Assessment and Plan: Does not require intervention. Scheduled for stent exchange later in the month. When medically stable can be discharged from urology standpoint Urology Consult Note HPI Date Seen: 07/12/24 Time Seen: 07:30 Requesting Physician: Antonina Zarco DO Primary Care Provider: Andrés Viveros, Consult Narrative Reason for consult: retained left ureteral stent Narrative: Nelia Peterson is a 88 year old female well known to Dr Shaikh. Has a staghorn right renal calculus and left renal pelvic stone managed by chronic ureteral stent. Recently changed in April and due to be exchanged later this month. Admitted with near syncopal episode. Also with possible uti although fairly asymptomatic. Ct shows some residual hydro but stent appears to be in good position. No pain. Review of Systems Review of Systems: All systems reviewed & are unremarkable except as noted in HPI and below PMFSH Past Medical History Medical History Orthostatic hypotension Retroperitoneal hematoma November 2023 Diverticulitis May 2023 Malfunction of nephrostomy tube With subsequent removal Hearing loss, bilateral Jered-tachy syndrome Pacemaker (09/04/22) Wireless pacemaker Moderate mitral regurgitation Mild pulmonary hypertension Heart failure with preserved ejection fraction EF was 60 to 65% in 07/2021. Mild aortic stenosis Chronic anemia Diastolic congestive heart failure Current use of long term care pharmacist anticoagulation Mitral regurgitation mod to severe Intraoperative ureteral injury (07/2021) Endometriosis Hyperlipidemia Hypothyroidism Chronic kidney disease Stage IV Degenerative disc disease Pulmonary embolism Kidney stones Including known right staghorn calculus. Depression Cerebral aneurysm Status post coil embolization. Hemorrhoids Histoplasmosis Paroxysmal atrial fibrillation Nonspecific colitis Dyslipidemia Hypertension Surgical History Surgical History Status post cataract extraction of both eyes with insertion of intraocular lens History of cystoscopy History of colonoscopy with polypectomy Status post coil embolization of cerebral aneurysm History of lumbar surgery History of cataract extraction History of arthroplasty of right knee Complicated by DVT History of total hysterectomy with bilateral salpingo-oophorectomy (BSO) History of tonsillectomy and adenoidectomy Family History Family History Mother , in her 70s Hypertension Father Hypertension Acute myocardial infarction Social History Social History Social History: The patient lives at home alone. She was for 68 years but has been since September 2020.. She had 2 daughters 1 of which of SIDS and another dark who of sudden cardiac in her 30s. She had a son who in his 30s of liver disease. 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 She reports that she gave up her license as she is not comfortable driving anymore. Surrogate decision maker: Kerri Almonteale (friend) Code status: DNR/DNI (however patient reports that she would be okay with medications for blood pressure support and with noninvasive ventilator if needed. She would not want in feeding to. She wants to be pain free at the time of ) but then the patient told nursing staff that she was okay with compressions but not a lot of compressions. Nursing staff did not bother to tell the patient that compressions would be painful. Smoking packs per day: 0.25 Smoking cigarettes per day: 5.0 Years smoked: 15 Smoking pack-years: 3.75 Smoking status: Former smoker Tobacco type: cigarettes Second hand tobacco smoke exposure: No Smoking end date: 06/06/69 Alcohol intake: current Drinks per week: 1 Alcohol use details: 6 oz of wine. Substance use: never Substance use type: does not use Do You Feel Safe in your Home?: Yes Lack of Transportation: No Lack of Food: Never True Current Housing: I Have Housing Concerned About Future Housing: No Difficulty Paying Gas/Electric Bills: No Difficulty Paying for Meds: No Currently Unemployed: No Education: Master's Degree or Higher Difficulty w/ Childcare or Family Care: No Living arrangements: alone Additional living arrangements comments: She and her had 3 children, all whom are . Additional occupation/education comments: Retired. Spiritual care concerns: No Meds Home Medications and Allergies Home Medications ?Medication ?Instructions ?Recorded ?Confirmed ?Type bupropion HCl 150 mg tablet,12 hr 150 mg PO BID 11/19/19 07/12/24 History sustained-release cholecalciferol (vitamin D3) 50 50 mcg PO DAILY 11/19/19 07/12/24 History mcg (2,000 unit) capsule (Vitamin D3) levothyroxine 50 mcg tablet 50 mcg PO QAM 11/19/19 07/12/24 History pravastatin 80 mg tablet 80 mg PO HS 11/19/19 07/12/24 History apixaban 2.5 mg tablet (Eliquis) 2.5 mg PO BID 11/19/22 07/12/24 History ferrous sulfate 325 mg (65 mg 325 mg PO BID 05/09/23 07/12/24 History iron) tablet bisacodyl 5 mg tablet,delayed 5 mg PO QAM PRN Constipation 04/09/24 07/12/24 History release (Laxative (bisacodyl)) sotalol 80 mg tablet 40 mg PO BID 04/09/24 07/12/24 History hydroxyzine HCl 10 mg tablet 10 mg PO HS itching 07/12/24 07/12/24 History tramadol 50 mg tablet 50 mg PO .Q6 hours PRN moderate 07/12/24 07/12/24 History pain (scale score 5-6) Allergies Allergy/AdvReac Type Severity Reaction Status Date / Time codeine AdvReac Mild Nausea Verified 07/11/24 18:49 Vital Signs Vital Signs - 24 hr 07/11/24 18:42 07/11/24 18:51 07/11/24 18:51 Temperature 36.3 C L Pulse Rate 59 L 87 81 Respiratory Rate 20 14 Blood Pressure 199/89 H Pulse Oximetry 100 100 Oxygen Delivery Room Air 07/11/24 20:17 07/11/24 20:31 07/11/24 20:32 Temperature Pulse Rate 61 60 60 Respiratory Rate 14 13 14 Blood Pressure 180/80 H 174/75 H Pulse Oximetry 99 100 99 Oxygen Delivery 07/11/24 20:47 07/11/24 21:02 07/11/24 21:16 Temperature Pulse Rate 61 61 61 Respiratory Rate 14 15 12 Blood Pressure 65/37 L 178/74 H 169/79 H Pulse Oximetry 100 99 100 Oxygen Delivery 07/11/24 21:31 07/11/24 22:00 07/11/24 22:01 Temperature Pulse Rate 60 62 60 Respiratory Rate 14 9 L 10 L Blood Pressure 173/75 H 154/72 H Pulse Oximetry 100 100 100 Oxygen Delivery 07/11/24 22:16 07/11/24 22:17 07/11/24 22:31 Temperature Pulse Rate 61 67 62 Respiratory Rate 13 13 13 Blood Pressure 174/148 H 180/72 H Pulse Oximetry 100 100 100 Oxygen Delivery 07/11/24 22:45 07/11/24 23:00 07/11/24 23:01 Temperature Pulse Rate 61 60 61 Respiratory Rate 14 19 14 Blood Pressure 168/74 H Pulse Oximetry 100 99 99 Oxygen Delivery 07/11/24 23:15 07/11/24 23:30 07/11/24 23:31 Temperature Pulse Rate 61 63 61 Respiratory Rate 17 17 23 H Blood Pressure 134/119 H Pulse Oximetry 100 100 Oxygen Delivery 07/12/24 02:20 07/12/24 02:20 07/12/24 05:47 Temperature 36.4 C Pulse Rate 59 L 61 Respiratory Rate 12 Blood Pressure 173/69 H 150/79 H Pulse Oximetry 99 99 Oxygen Delivery Room Air 07/12/24 05:48 07/12/24 05:50 Temperature 36.4 C Pulse Rate 60 59 L Respiratory Rate 12 Blood Pressure 144/73 H 173/69 H Pulse Oximetry 94 99 Oxygen Delivery Exam Const: General: cooperative and comfortable Resp: Effort & Inspection: normal respiratory effort Cardio: Rate: regular rate Rhythm: regular rhythm Results Labs 07/12/24 06:55 07/12/24 06:55 Labs: Short CBC 07/11/24 07/12/24 Range/Units 18:56 06:55 WBC 4.3 L 6.2 (4.5-10.0) K/mm3 Hgb 13.4 11.9 L (12.0-15.0) g/dL Hct 41.8 36.3 L (37.0-47.0) % Plt Count 115 L 102 L (150-375) k/mm3 BMP 07/11/24 07/12/24 18:56 06:55 Sodium 139 139 Potassium 4.8 4.3 Chloride 107 107 Carbon Dioxide 20 L 22 BUN 35 H 34 H Creatinine 1.91 H 1.82 H Glucose 87 73 Calcium 9.1 9.3 Liver Function 07/11/24 Range/Units 18:56 Total Bilirubin 0.6 (0.2-1.3) mg/dL AST 24 (14-36) U/L ALT 13 (6-35) U/L Alkaline Phosphatase 79 (38-126) U/L Albumin 3.7 (3.5-5.1) g/dL Urine 07/11/24 Range/Units 18:56 Urine Color Red H (Yellow) Urine Appearance Turbid H (Clear) Urine pH 7.0 (5.0-9.0) Ur Specific [place] 1.012 (1.001-1.035) Urine Protein 3+ H (Negative) mg/dL Urine Glucose (UA) Negative (Negative) mg/dL
[2024-07-12] MEDS: CHOLECALCIFEROL 1,000 UNITS TABLET 2000 UNITS PO (11:04)
[2024-07-12] MEDS: SOTALOL HCL 40 MG TABLET PO ×2 (11:05→21:01)
[2024-07-12] MEDS: buPROPion HCL SR (12 HR) 150 MG TAB PO ×2 (11:07→21:01)
[2024-07-12] MEDS: FERROUS SULFATE 325 MG TABLET DR BY MOUTH ×2 (11:23→17:23)
--- NOTE | 2024-07-12 11:30 | P.DS_ITS ---
DS: Admitting Diagnosis Discharge Date 07/12/2024 Admitting Diagnosis (1) Obstruction of urinary stent: Qualifiers: Encounter type: initial encounter Qualified Code(s): T83.193A - Other mechanical complication of other urinary stent, initial encounter Code(s): T83.193A - Other mechanical complication of other urinary stent, initial encounter Status: Acute (2) UTI (urinary tract infection): Qualifiers: Urinary tract infection type: acute pyelonephritis Qualified Code(s): N10 - Acute pyelonephritis Code(s): N39.0 - Urinary tract infection, site not specified Status: Acute (3) Hematuria due to cystitis: Code(s): N30.91 - Cystitis, unspecified with hematuria Status: Acute (4) Retained ureteral stent: Code(s): Z96.0 - Presence of urogenital implants Status: Chronic (5) Current use of long chain beamer anticoagulation: Code(s): Z79.01 - 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 operator (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) use of anticoagulants Status: Acute (6) Chronic kidney disease, stage 4 (severe): Code(s): N18.4 - Chronic kidney disease, stage 4 (severe) Status: Acute (7) Hypertension: Qualifiers: Hypertension type: essential hypertension Qualified Code(s): I10 - Essential (primary) hypertension Code(s): I10 - Essential (primary) hypertension Status: Acute (8) Orthostatic hypotension: Code(s): I95.1 - Orthostatic hypotension Status: Acute DS: Discharge Diagnosis Discharge Diagnosis Plan (1) Obstruction of urinary stent: Qualifiers: Encounter type: initial encounter Qualified Code(s): T83.193A - Other mechanical complication of other urinary stent, initial encounter Code(s): T83.193A - Other mechanical complication of other urinary stent, initial encounter Status: Acute (2) UTI (urinary tract infection): Qualifiers: Urinary tract infection type: acute pyelonephritis Qualified Code(s): N10 - Acute pyelonephritis Code(s): N39.0 - Urinary tract infection, site not specified Status: Acute (3) Hematuria due to cystitis: Code(s): N30.91 - Cystitis, unspecified with hematuria Status: Acute (4) Retained ureteral stent: Code(s): Z96.0 - Presence of urogenital implants Status: Chronic (5) Current use of nursing home anticoagulation: Code(s): Z79.01 - [facility] (current) use of anticoagulants Status: Acute (6) Chronic kidney disease, stage 4 (severe): Code(s): N18.4 - Chronic kidney disease, stage 4 (severe) Status: Acute (7) Hypertension: Qualifiers: Hypertension type: essential hypertension Qualified Code(s): I10 - Essential (primary) hypertension Code(s): I10 - Essential (primary) hypertension Status: Acute (8) Orthostatic hypotension: Code(s): I95.1 - Orthostatic hypotension Status: Acute DS: Summary Hospital Course Reason for hospitalization: left hydronephrosis within the double-J stent to the left, distended bladder, possible cystitis, UTI, dizziness. 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 The patient reported at that time that she felt well besides her depression and difficulties adjusting since her 3 years ago. Patient reported that she had gotten up earlier in the day to go to lunch with some of her friends. Patient noticed that she was extremely lightheaded as well as faint pink tinged and a strong odor and increased urinary frequency throughout the day. at that time she denies any dysuria, frequency, abdominal pain, As well as no fevers or chills. She went out to lunch with her friends and had a good appetite. She denied any nausea or vomiting. She denied any flank pain or tenderness. She reported that she has chronic ureteral stents in place and a Dr. Shaikh usually changes the stents every 4 months. Her last stent exchange was in April, she is due to have her stent changed in the next few weeks, she could not recall the day. Patient reported that she continued to feel lightheaded, and she noticed that she had darker red color in her urine. She presented to the emergency department for workup. CT scan in the ER demonstrated severe left hydronephrosis with the left double J-stent in appropriate position with obstruction likely due to calcified debris involving the proximal 1/3 of the stent. This appearance is similar to the patient's last CT at which time she had stent exchange by Dr. Parres. Bui catheter was placed in the emergency department. Urinalysis did note positive for nitrates and leukocytes. Patient was started on Rocephin IV piggyback, started on IV fluids, and admitted for observation. The patient reports that she is feeling well, she denies any lightheaded feeling, any dizziness, any nausea, vomiting or diarrhea. She states She did see the urologist, and she was hungry and ready to eat. Patient was kept NPO until seen by Urology. Dr Lorenzo From urology did evaluate the patient, he stated that she is stable from his standpoint, with a Bui catheter, she could be discharged from his standpoint to follow up with her urologist for further management. This a.m. patient's white count was normal, hemoglobin hematocrit are within her normal limits, BUN creatinine and GFR are similar to previous. She denies any dizziness, she has been able to restart her home medications. She is agreeable to discharge to follow-up with her PCP, and urologist. Discussed with patient need to continue with her Bui catheter, we will send her home with instructions, and shown care prior to discharge. She will follow- up with a urologist and they can either remove it or continue it as they see fit. Instructed her to continue to increase her fluid intake, including electrolyte solutions like Gatorade or Pedialyte. Rest, continue with her antibiotics as prescribed, cefdinir 300 mg p.o. b.i.d. for the next 7 days. Her urine culture is pending, and she understands. Educated to continue with her home medications as previous, I did call her PCP for outpatient follow-up. Discussed with the patient to return to the emergency department the worrisome sign or symptom. Answered all her questions to her satisfaction she is agreeable to this plan. Status at Discharge Functional status at discharge: uses cane/walker Time Spent with Patient Time attestation: Total time spent providing and/or coordinating discharge services: Time spent: Greater than 30 minutes Exam Const: General: cooperative, comfortable, no acute distress, well developed, alert, awake and Physically active Nutritional Appearance: average body habitus and well nourished Orientation/consciousness: oriented to person, oriented to place and oriented to time Limitations: no limitations HENMT: Head: normal to inspection Eyes: General: appearance normal, both eyes and all related structures Neck: Neck: normal visual inspection, full ROM and no lymphadenopathy Chest: Chest palpation & inspection: normal inspection of the chest and normal palpation of entire chest wall Resp: Effort & Inspection: normal respiratory effort and able to speak in complete sentences Auscultation: clear to auscultation bilaterally Cardio: Jugular venous distension: no JVD Palpation: normal PMI Rate: regular rate Rhythm: regular rhythm Heart sounds: S1 normal heart sound present and S2 normal heart sound present Peripheral pulses: Peripheral pulses 2+ throughout GI: Inspection: normal to inspection GI Palp: Yes Soft to palpation Auscultation: normal bowel sounds Urinary Catheter: Urinary Catheter: patent and draining and urine clear (amanda in color.) Back/Spine/Pelvis: Back: no CVA tenderness Skin: General skin exam: normal color Neuro: General: oriented to person, oriented to place and oriented to time DS: Data Data Completed and Pending Labs on day of discharge: Labs from last 24 hours 07/12/24 07/11/24 06:55 18:56 WBC 6.2 4.3 L RBC 3.81 L 4.31 Hgb 11.9 L 13.4 Hct 36.3 L 41.8 MCV 95.3 97.0 MCH 31.2 31.1 MCHC 32.8 32.1 RDW 13.2 13.1 Plt Count 102 L 115 L MPV 10.6 H 10.4 Immature Gran % (Auto) 0.2 Neut % (Auto) 61.4 Lymph % (Auto) 24.0 [place] % (Auto) 9.1 H Eos % (Auto) 4.4 Baso % (Auto) 0.9 Lymph # (Auto) 1.03 [place] # (Auto) 0.4 Eos # (Auto) 0.2 Baso # (Auto) 0.0 Abs Immat Gran (auto) 0.01 Absolute Neuts (auto) 2.6 Absolute Nucleated RBC 0.000 Nucleated RBC % 0.0 % Immature Plt Fraction 2.5 2.5 Sodium 139 139 Potassium 4.3 4.8 Chloride 107 107 Carbon Dioxide 22 20 L Anion Gap 10 12 BUN 34 H 35 H Creatinine 1.82 H 1.91 H Estim Creat Clear Calc 17 Not Reportable Estimated GFR 26 L 25 L Glucose 73 87 Calcium 9.3 9.1 Total Bilirubin 0.6 AST 24 ALT 13 Alkaline Phosphatase 79 Total Protein 6.0 L Albumin 3.7 Urine Color Red H Urine Appearance Turbid H Urine pH 7.0 Ur Specific [place] 1.012 Urine Protein 3+ H Urine Glucose (UA) Negative Urine Ketones Negative Ur Blood (Man) 3+ H Urine Nitrate Positive H Urine Bilirubin 1+ H Urine Urobilinogen 0.2 Add Ur Microanalysis Reviewed Leukocyte Esterase Rfl 3+ H Urine RBC >100 H Urine WBC >100 H Ur Squamous Epith Cells None seen Urine Bacteria 4+ H Urine Casts 0-2 Discharge Plan Discharge Attending physician on discharge: Antonina Zarco Consulting providers: Tim Brennan Discharging Clinician: Christina Tamayo Activity: may shower and as tolerated Diet: heart healthy Discharge Instructions: Bui catheter to remain in place, follow-up with urology for further evaluation This week. call to schedule an appointment today. Increase your fluid intake, including electrolyte solution such as Gatorade, Pedialyte. Heart healthy diet, continue your home medications. antibiotic, take as instructed until completed. follow-up with your primary care provider in the next week. Return to the emergency department with any worrisome sign or symptom. Patient Instructions: Bui Catheter Placement and Care (GEN) Patient Language: Upper Sorbian Discharge Medications: New cefdinir 300 mg capsule 300 mg PO Q12H 7 Days Qty: 14 0RF No Action bupropion HCl 150 mg Tablet Sustained-Release 12 Hr 150 mg PO BID pravastatin 80 mg tablet 80 mg PO HS levothyroxine 50 mcg tablet 50 mcg PO QAM cholecalciferol (vitamin D3) [Vitamin D3] 50 mcg (2,000 unit) Capsule 50 mcg PO DAILY ferrous sulfate 325 mg (65 mg iron) tablet 325 mg PO BID hydroxyzine HCl 10 mg tablet 10 mg PO HS tramadol 50 mg tablet 50 mg PO .Q6 hours PRN (Reason: moderate pain (scale score 5-6)) Eliquis 2.5 mg tablet 2.5 mg PO BID Patient Comments: on hold per pt after 02/07/24 bisacodyl [Laxative (bisacodyl)] 5 mg tablet,delayed release (DR/EC) 5 mg PO QAM PRN (Reason: Constipation) Patient Comments: Takes every other day sotalol 80 mg tablet 40 mg PO BID Date of admission: 07/11/24 22:16 Primary Care Provider: MelissaAndrés Admitting Provider: Antonina Zarco Attending physician on admission: Antonina Zarco Condition: Stable
--- NOTE | 2024-07-12 12:36 | P.PN_ITS ---
Progress Note: A&P Assessment and Plan (1) Orthostatic hypotension: Code(s): I95.1 - Orthostatic hypotension Status: Acute (2) Hematuria due to cystitis: Code(s): N30.91 - Cystitis, unspecified with hematuria Status: Acute (3) Obstruction of urinary stent: Qualifiers: Encounter type: initial encounter Qualified Code(s): T83.193A - Other mechanical complication of other urinary stent, initial encounter Code(s): T83.193A - Other mechanical complication of other urinary stent, initial encounter Status: Acute (4) UTI (urinary tract infection): Qualifiers: Urinary tract infection type: acute pyelonephritis Qualified Code(s): N10 - Acute pyelonephritis Code(s): N39.0 - Urinary tract infection, site not specified Status: Acute (5) Ureterolithiasis: Code(s): N20.1 - Calculus of ureter Status: Acute (6) Hypertension: Qualifiers: Hypertension type: essential hypertension Qualified Code(s): I10 - Essential (primary) hypertension Code(s): I10 - Essential (primary) hypertension Status: Acute (7) Dyslipidemia: Code(s): E78.5 - Hyperlipidemia, unspecified Status: Chronic (8) Chronic kidney disease: Qualifiers: Chronic kidney disease stage: unspecified stage Qualified Code(s): N18.9 - Chronic kidney disease, unspecified Code(s): N18.9 - Chronic kidney disease, unspecified Status: Chronic (9) Back pain: Code(s): M54.9 - Dorsalgia, unspecified Status: Acute (10) 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 UTI/cystitis -hematuria - complicated by chronic ureter stent left ## Urine positive for Nitrates and Leuks - culture pending. - Rocephin IVPB daily - follow culture - continue calderon catheter for I&O and obstuction --> will consider removal prior to discharge. - urology consulted and cleared for discharge - no intervention - continue IV fluids, monitor H&H #2 - orthostatic hypotension - continue with fluids, monitor vitals. - up with assist and walker. #3 -generalized fatigue and weakness -->could be result of UTI/cystitis the complicated by chronic left ureteral stent. - considered Discharge home today, however will hold today. - PT/OT eval and treat for weakness - consider home health at discharge #4 - Acute on Chronic Renal failure - stage 4 - continue IV fluids - monitor BUN/Creat -> GFR daily. - will need to follow up outpatient. #5 - chronic Afib, HTN, CHF hx - contiue Eliquis, Sotalol - monitor closely DVT prophalaxis - Continue Eliguis Plan: Attempted to discharge patient today, consider discharge in AM if stable, PT/OT Eval and recommendation. Discharge planning for outpatient possible Home health? Time with patient: Greater than 35 minutes Subjective Date/time seen: 07/12/24 12:36 Interval history: 88-year-old female with a past medical history of depression, paroxysmal atrial fibrillation on Eliquis, hypothyroidism, right staghorn kidney stone, chronic left recurrent kidney stones with chronic ureteral stent who presented to the ER with lightheadedness and hematuria. She denied any flank pain or tenderness, and continues to deny.. She reported that she has chronic ureteral stents in place and a Dr. Shaikh usually changes the stents every 4 months. Her last stent exchange was in April and is due to have her stents removed soon. CT scan in the ER demonstrated severe left hydronephrosis with the left double J-stent in appropriate position with obstruction likely due to calcified debris involving the proximal 1/3 of the stent. This appearance is similar to the patient's last CT at which time she had stent exchange by Dr. Shaikh. Urinalysis is noting positive Nitrates and Leuks. Culture pending. She was started on Rocephin IVPB and fluids. Patient this am was seen and evaluated by Urologist Dr Lorenzo, noted once stable she could be discharged to follow up with Urologist outpatient. Considered discharged today, however reports weakness and inability to ambulate today. Patient denied any chest pain, shortness of breath, headaches, dizziness, N/V/D, or distress. Patient has noted hematuria today. Review of Systems Review of Systems: All systems reviewed & are unremarkable except as noted in HPI and below Constitutional: Constitutional: Reports as per HPI Eyes: Eyes: Reports as per HPI ENT: Reports system reviewed and no additional complaints, except as documented Cardiovascular: Cardiovascular: Reports no additional cardiovascular complaints Respiratory: Respiratory: Reports as per HPI and Reports no additional respiratory complaints Gastrointestinal: Gastrointestinal: Reports as per HPI and Reports no additional gastrointestinal complaints Genitourinary: Genitourinary: Reports hematuria Comments: calderon catheter in place Musculoskeletal: Musculoskeletal: Reports muscle weakness Comments: reported weakness and difficulty walking. Neurologic: Reports system reviewed and no additional complaints, except as documented Psychiatric: Psychiatric: Reports no additional psychiatric complaints Endocrine: Endocrine: Reports no additional endocrine complaints Hematologic/Lymphatic: Hematologic/Lymphatic: Reports no additional hematologic/lymphatic complaints Allergic/Immunologic: Allergic/Immunologic: Reports no additional allergic/immunologic complaints Objective Data Vital Signs Vital Signs: Vital Signs - 24 hr 07/11/24 18:42 07/11/24 18:51 07/11/24 18:51 Temperature 97.4 F L Pulse Rate 59 L 87 81 Respiratory Rate 20 14 Blood Pressure 199/89 H Pulse Oximetry 100 100 Oxygen Delivery Room Air 07/11/24 20:17 07/11/24 20:31 07/11/24 20:32 Temperature Pulse Rate 61 60 60 Respiratory Rate 14 13 14 Blood Pressure 180/80 H 174/75 H Pulse Oximetry 99 100 99 Oxygen Delivery 07/11/24 20:47 07/11/24 21:02 07/11/24 21:16 Temperature Pulse Rate 61 61 61 Respiratory Rate 14 15 12 Blood Pressure 65/37 L 178/74 H 169/79 H Pulse Oximetry 100 99 100 Oxygen Delivery 07/11/24 21:31 07/11/24 22:00 07/11/24 22:01 Temperature Pulse Rate 60 62 60 Respiratory Rate 14 9 L 10 L Blood Pressure 173/75 H 154/72 H Pulse Oximetry 100 100 100 Oxygen Delivery 07/11/24 22:16 07/11/24 22:17 07/11/24 22:31 Temperature Pulse Rate 61 67 62 Respiratory Rate 13 13 13 Blood Pressure 174/148 H 180/72 H Pulse Oximetry 100 100 100 Oxygen Delivery 07/11/24 22:45 07/11/24 23:00 07/11/24 23:01 Temperature Pulse Rate 61 60 61 Respiratory Rate 14 19 14 Blood Pressure 168/74 H Pulse Oximetry 100 99 99 Oxygen Delivery 07/11/24 23:15 07/11/24 23:30 07/11/24 23:31 Temperature Pulse Rate 61 63 61 Respiratory Rate 17 17 23 H Blood Pressure 134/119 H Pulse Oximetry 100 100 Oxygen Delivery 07/12/24 02:20 07/12/24 02:20 07/12/24 05:47 Temperature 97.6 F Pulse Rate 59 L 61 Respiratory Rate 12 Blood Pressure 173/69 H 150/79 H Pulse Oximetry 99 99 Oxygen Delivery Room Air 07/12/24 05:48 07/12/24 05:50 07/12/24 11:05 Temperature 97.6 F Pulse Rate 60 59 L 70 Respiratory Rate 12 Blood Pressure 144/73 H 173/69 H Pulse Oximetry 94 99 Oxygen Delivery Intake/Output Intake/Output: Intake & Output 07/09/24 07/10/24 07/11/24 07/12/24 23:59 23:59 23:59 23:59 Intake Total 250 Output Total 650 Balance -400 Meds/Results Medications: Active Medications Generic Name Dose Route Start Last Admin Trade Name Freq PRN Reason Stop Dose Admin Acetaminophen 650 mg 07/11/24 22:16 Acetaminophen 325 Mg Tablet PO Q4H PRN Mild Pain (1-3) or Fever Bisacodyl 5 mg 07/12/24 02:20 Bisacodyl 5 Mg Tablet Ec PO QAM PRN Constipation Bupropion HCl 150 mg 07/12/24 09:00 07/12/24 11:07 Bupropion Hcl Sr (12 Hr) 150 Mg Tab PO 150 mg Q12HR RUY Administration Ferrous Sulfate 325 mg 07/12/24 09:00 07/12/24 11:23 Ferrous Sulfate [address] BY MOUTH 325 mg BID RUY Administration Hydroxyzine HCl 10 mg 07/12/24 02:20 07/12/24 04:43 Hydroxyzine Hcl 10 Mg Tablet PO Not Given HS RUY Ceftriaxone Sodium 1 gm in 50 mls @ 100 mls/hr 07/12/24 22:00 Rocephin 1 Gm/Ns 50 Ml IVPB Q24H RUY Sodium Chloride 1,000 mls @ 75 mls/hr 07/11/24 22:20 07/12/24 12:06 Normal Saline Iv IV CONT Not Given .[id number] [facility] Levothyroxine Sodium 50 mcg 07/12/24 06:30 07/12/24 06:13 Levothyroxine Sodium 50 Mcg Tablet PO 50 mcg DAILY@0630 RUY Administration Ondansetron HCl 4 mg 07/11/24 22:16 Ondansetron Inj 4 Mg/2 Ml Vial IV PUSH Q4H PRN Nausea Pravastatin Sodium 80 mg 07/12/24 21:00 Pravastatin Sodium 20 Mg Tablet PO HS RUY Sotalol HCl 40 mg 07/12/24 09:00 07/12/24 11:05 Sotalol Hcl 40 Mg Tablet PO 40 mg Q12HR RUY Administration Tramadol HCl 50 mg 07/12/24 10:30 Tramadol Hcl (*Crx) 50 Mg Tablet PO Q6H PRN moderate pain (scale score 5-6) Vitamin D 2,000 units 07/12/24 09:00 07/12/24 11:04 Cholecalciferol 1,000 Units Tablet PO 2,000 units DAILY RUY Administration Radiology Results: ITS Impressions Chest X-Ray 07/11/24 19:27 IMPRESSION: Findings suggesting prior granulomatous disease, without focal infiltrate or effusion. Abdomen/Pelvis CT 07/11/24 20:21 IMPRESSION: Left-sided hydronephrosis despite left-sided double-J stent in good position for which stent obstruction is suspected. Calcified debris surrounding the proximal third of the double-J stent. Right-sided staghorn calculus. Left-sided 18 mm renal pelvis stone, both unchanged from 12/02/2023. Cholelithiasis without cystitis. Findings suggesting prior granulomatous disease. Labs Labs: Laboratory Results - last 24 hr 07/11/24 07/12/24 18:56 06:55 WBC 4.3 L 6.2 RBC 4.31 3.81 L Hgb 13.4 11.9 L Hct 41.8 36.3 L MCV 97.0 95.3 MCH 31.1 31.2 MCHC 32.1 32.8 RDW 13.1 13.2 Plt Count 115 L 102 L MPV 10.4 10.6 H Immature Gran % (Auto) 0.2 Neut % (Auto) 61.4 Lymph % (Auto) 24.0 [place] % (Auto) 9.1 H Eos % (Auto) 4.4 Baso % (Auto) 0.9 Lymph # (Auto) 1.03 [place] # (Auto) 0.4 Eos # (Auto) 0.2 Baso # (Auto) 0.0 Abs Immat Gran (auto) 0.01 Absolute Neuts (auto) 2.6 Absolute Nucleated RBC 0.000 Nucleated RBC % 0.0 % Immature Plt Fraction 2.5 2.5 Sodium 139 139 Potassium 4.8 4.3 Chloride 107 107 Carbon Dioxide 20 L 22 Anion Gap 12 10 BUN 35 H 34 H Creatinine 1.91 H 1.82 H Estim Creat Clear Calc Not Reportable 17 Estimated GFR 25 L 26 L Glucose 87 73 Calcium 9.1 9.3 Total Bilirubin 0.6 AST 24 ALT 13 Alkaline Phosphatase 79 Total Protein 6.0 L Albumin 3.7 Urine Color Red H Urine Appearance Turbid H Urine pH 7.0 Ur Specific [place] 1.012 Urine Protein 3+ H Urine Glucose (UA) Negative Urine Ketones Negative Ur Blood (Man) 3+ H Urine Nitrate Positive H Urine Bilirubin 1+ H Urine Urobilinogen 0.2 Add Ur Microanalysis Reviewed Leukocyte Esterase Rfl 3+ H Urine RBC >100 H Urine WBC >100 H Ur Squamous Epith Cells None seen Urine Bacteria 4+ H Urine Casts 0-2 Quality VTE Prophylaxis VTE prophylaxis: pharmacologic ordered (eliquis) Pharmacological Therapy Was IV thrombolytic therapy given?: No Reason anticoag or antiplatelet not ordered by end of day 2: not indicated
[2024-07-12] MEDS: traMADol HCL (*CRX) 50 MG TABLET PO (21:00)
[2024-07-12] MEDS: PRAVASTATIN SODIUM 20 MG TABLET 80 MG PO (21:01)
[2024-07-12] MEDS: hydrOXYzine HCL 10 MG TABLET PO (21:01)
[2024-07-13] MEDS: LEVOTHYROXINE SODIUM 50 MCG TABLET PO (05:29)
[2024-07-13 06:00] VITALS: BP 130/86; PULSE 59; RESP 20; TEMP 36.7; O2SAT 100
[2024-07-13 07:10] LABS: Iron 67 ug/dL (37-170)
[2024-07-13 07:16] LABS: Alanine Aminotransferase 12 U/L (6-35); Albumin Level 3.4 g/dL (3.5-5.1); Alkaline Phosphatase 76 U/L (38-126); Anion Gap 6 mmol/L (4-12); Aspartate Amino Transferase 21 U/L (14-36); Bilirubin,Total 0.5 mg/dL (0.2-1.3); Blood Urea Nitrogen 37 mg/dL (7-17); Calcium 9.1 mg/dL (8.4-10.2); Carbon Dioxide 24 mmol/L (22-30); Chloride 108 mmol/L (98-107); Estimated CRCL calculation 16 ml/min; Estimated Glomerular Filt Rate 25; Glucose 82 mg/dL (65-110); Potassium 4.3 mmol/L (3.4-5.0); Sodium 138 mmol/L (137-145)
[2024-07-13 07:21] LABS: Percent Iron Saturation 32 % (20-50)
[2024-07-13 07:56] LABS: Glucose Point of Care 80 mg/dl (65-105)
[2024-07-13 09:13] VITALS: PULSE 75
[2024-07-13] MEDS: SOTALOL HCL 40 MG TABLET PO ×2 (09:13→21:26)
[2024-07-13 09:15] VITALS: O2SAT 100
[2024-07-13] MEDS: CHOLECALCIFEROL 1,000 UNITS TABLET 2000 UNITS PO (09:15)
[2024-07-13] MEDS: traMADol HCL (*CRX) 50 MG TABLET PO ×2 (09:15→21:26)
[2024-07-13] MEDS: FERROUS SULFATE 325 MG TABLET DR BY MOUTH ×2 (09:15→17:43)
[2024-07-13] MEDS: buPROPion HCL SR (12 HR) 150 MG TAB PO ×2 (09:15→21:26)
--- NOTE | 2024-07-13 10:00 | PM.IMPN ---
Progress Note: A&P Assessment and Plan (1) Orthostatic hypotension: Code(s): I95.1 - Orthostatic hypotension Status: Acute Assessment and Plan: Improved. (2) Hematuria due to cystitis: Code(s): N30.91 - Cystitis, unspecified with hematuria Status: Acute Assessment and Plan: Continue with antibiotics (3) Obstruction of urinary stent: Qualifiers: Encounter type: initial encounter Qualified Code(s): T83.193A - Other mechanical complication of other urinary stent, initial encounter Code(s): T83.193A - Other mechanical complication of other urinary stent, initial encounter Status: Acute Assessment and Plan: Urinary catheter draining fine. Continue current treatment. (4) UTI (urinary tract infection): Qualifiers: Urinary tract infection type: acute pyelonephritis Qualified Code(s): N10 - Acute pyelonephritis Code(s): N39.0 - Urinary tract infection, site not specified Status: Acute Assessment and Plan: Continue antibiotics. (5) Ureterolithiasis: Code(s): N20.1 - Calculus of ureter Status: Acute Assessment and Plan: Stable, continue current treatment. (6) Hypertension: Qualifiers: Hypertension type: essential hypertension Qualified Code(s): I10 - Essential (primary) hypertension Code(s): I10 - Essential (primary) hypertension Status: Acute Assessment and Plan: Stable on current medication. (7) Dyslipidemia: Code(s): E78.5 - Hyperlipidemia, unspecified Status: Chronic Assessment and Plan: Stable on current medication. (8) Chronic kidney disease: Qualifiers: Chronic kidney disease stage: unspecified stage Qualified Code(s): N18.9 - Chronic kidney disease, unspecified Code(s): N18.9 - Chronic kidney disease, unspecified Status: Chronic Assessment and Plan: Stable (9) Back pain: Code(s): M54.9 - Dorsalgia, unspecified Status: Acute Assessment and Plan: Pain well controlled. (10) Hx of group home use of blood thinners: Code(s): Z92.29 - Personal history of other drug therapy Status: Acute Assessment and Plan: Stable. Continue current treatment. (11) Stone, kidney: Code(s): N20.0 - Calculus of kidney Status: Acute Assessment and Plan: Urology following. (12) Hydronephrosis, left: Code(s): N13.30 - Unspecified hydronephrosis Status: Acute Assessment and Plan: Urology following. (13) Obstruction of left ureteropelvic junction (UPJ): Code(s): N13.5 - Crossing vessel and stricture of ureter without hydronephrosis Status: Acute Assessment and Plan: Plan is to continue current treatment. Discharge with Bui catheter on. Waiting for home health care or half-way placement. Plan (1) Obstruction of urinary stent: Qualifiers: Encounter type: initial encounter Qualified Code(s): T83.193A - Other mechanical complication of other urinary stent, initial encounter Code(s): T83.193A - Other mechanical complication of other urinary stent, initial encounter Status: Acute (2) UTI (urinary tract infection): Qualifiers: Urinary tract infection type: acute pyelonephritis Qualified Code(s): N10 - Acute pyelonephritis Code(s): N39.0 - Urinary tract infection, site not specified Status: Acute (3) Hematuria due to cystitis: Code(s): N30.91 - Cystitis, unspecified with hematuria Status: Acute (4) Retained ureteral stent: Code(s): Z96.0 - Presence of urogenital implants Status: Chronic (5) 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 No new overnight complaints. Waiting for home health/half-way placement. Review of Systems Review of Systems: 12 systems were reviewed with pertinent positives and negatives per HPI. Except as documented in the HPI, all other systems were reviewed and are negative. All systems reviewed & are unremarkable except as noted in HPI and below Constitutional: Constitutional: Reports as per HPI Eyes: Eyes: Reports as per HPI ENT: Reports system reviewed and no additional complaints, except as documented Cardiovascular: Cardiovascular: Reports no additional cardiovascular complaints Respiratory: Respiratory: Reports as per HPI and Reports no additional respiratory complaints Gastrointestinal: Gastrointestinal: Reports as per HPI and Reports no additional gastrointestinal complaints Genitourinary: Genitourinary: Reports hematuria Musculoskeletal: Musculoskeletal: Reports muscle weakness Neurologic: Reports system reviewed and no additional complaints, except as documented Psychiatric: Psychiatric: Reports no additional psychiatric complaints Endocrine: Endocrine: Reports no additional endocrine complaints Hematologic/Lymphatic: Hematologic/Lymphatic: Reports no additional hematologic/lymphatic complaints Allergic/Immunologic: Allergic/Immunologic: Reports no additional allergic/immunologic complaints Exam Narrative: Weight 59.9 kg BMI 22.7 Const: Other: No acute distress, thin body habitus, appears stated age HENMT: Other: Mucous membranes are tacky, no oral pharyngeal erythema, upper dentures in place, intact intention in lower jaw, head is normocephalic atraumatic Eyes: Other: Pupils are equal and reactive, no scleral icterus, no conjunctival pallor Neck: Other: No JVD, no lymphadenopathy Resp: Other: Clear to auscultation bilaterally, no increased work of breathing Cardio: Other: Regular rate, regular rhythm, 2+ bilateral radial pedal pulses, 3/6 systolic murmur noted GI: Other: Soft, nontender, nondistended, positive bowel sounds : Other: Bui catheter in place with turbid dark red urine Back/Spine/Pelvis: Other: No CVA tenderness, mild thoracic kyphosis Skin: Other: No pallor, non jaundice Neuro: Other: Alert orient x4, speech is clear, mildly hard of hearing, no facial asymmetry, no localizing neurologic deficits noted during the course of conversation Extrem: Other: No clubbing, cyanosis or edema Psych: Other: Appropriate mood and affect, pleasant and cooperative, judgment and insight intact Objective Data Vital Signs Vital Signs: Vital Signs - 24 hr 07/12/24 11:05 07/12/24 14:00 07/12/24 20:00 Temperature 36.7 C Pulse Rate 70 59 L 62 Respiratory Rate 18 18 Blood Pressure 144/60 H Pulse Oximetry 100 100 Oxygen Delivery Room Air 07/12/24 21:01 07/12/24 22:00 07/13/24 06:00 Temperature 36.4 C L 36.7 C Pulse Rate 62 60 59 L Respiratory Rate 20 20 Blood Pressure 157/88 H 130/86 Pulse Oximetry 100 100 Oxygen Delivery 07/13/24 09:13 Temperature Pulse Rate 75 Respiratory Rate Blood Pressure Pulse Oximetry Oxygen Delivery Intake/Output Intake/Output: Intake & Output 07/10/24 07/11/24 07/12/24 07/13/24 23:59 23:59 23:59 23:59 Intake Total 1280 660 Output Total 1450 500 Balance -170 160 Meds/Results Medications: Active Medications Generic Name Dose Route Start Last Admin Trade Name Freq PRN Reason Stop Dose Admin Acetaminophen 650 mg 07/11/24 22:16 Acetaminophen 325 Mg Tablet PO Q4H PRN Mild Pain (1-3) or Fever Bisacodyl 5 mg 07/12/24 02:20 Bisacodyl 5 Mg Tablet Ec PO QAM PRN Constipation Bupropion HCl 150 mg 07/12/24 09:00 07/13/24 09:15 Bupropion Hcl Sr (12 Hr) 150 Mg Tab PO 150 mg Q12HR RUY Administration Ferrous Sulfate 325 mg 07/12/24 09:00 07/13/24 09:15 Ferrous Sulfate [address] BY MOUTH 325 mg BID RUY Administration Hydroxyzine HCl 10 mg 07/12/24 02:20 07/12/24 21:01 Hydroxyzine Hcl 10 Mg Tablet PO 10 mg HS RUY Administration Ceftriaxone Sodium 1 gm in 50 mls @ 100 mls/hr 07/12/24 22:00 07/12/24 21:32 Rocephin 1 Gm/Ns 50 Ml IVPB Infused Q24H RUY Infusion Levothyroxine Sodium 50 mcg 07/12/24 06:30 07/13/24 05:29 Levothyroxine Sodium 50 Mcg Tablet PO 50 mcg DAILY@0630 RUY Administration Ondansetron HCl 4 mg 07/11/24 22:16 Ondansetron Inj 4 Mg/2 Ml Vial IV PUSH Q4H PRN Nausea Pravastatin Sodium 80 mg 07/12/24 21:00 07/12/24 21:01 Pravastatin Sodium 20 Mg Tablet PO 80 mg HS RUY Administration Sotalol HCl 40 mg 07/12/24 09:00 07/13/24 09:13 Sotalol Hcl 40 Mg Tablet PO 40 mg Q12HR RUY Administration Tramadol HCl 50 mg 07/12/24 10:30 07/13/24 09:15 Tramadol Hcl (*Crx) 50 Mg Tablet PO 50 mg Q6H PRN Administration moderate pain (scale score 5-6) Vitamin D 2,000 units 07/12/24 09:00 07/13/24 09:15 Cholecalciferol 1,000 Units Tablet PO 2,000 units DAILY RUY Administration Radiology Results: ITS Impressions Chest X-Ray 07/11/24 19:27 IMPRESSION: Findings suggesting prior granulomatous disease, without focal infiltrate or effusion. Abdomen/Pelvis CT 07/11/24 20:21 IMPRESSION: Left-sided hydronephrosis despite left-sided double-J stent in good position for which stent obstruction is suspected. Calcified debris surrounding the proximal third of the double-J stent. Right-sided staghorn calculus. Left-sided 18 mm renal pelvis stone, both unchanged from 12/02/2023. Cholelithiasis without cystitis. Findings suggesting prior granulomatous disease. Labs Labs: Laboratory Results - last 24 hr 07/13/24 07/13/24 06:46 07:42 Sodium 138 Potassium 4.3 Chloride 108 H Carbon Dioxide 24 Anion Gap 6 BUN 37 H Creatinine 1.92 H Estim Creat Clear Calc 16 Estimated GFR 25 L Glucose 82 POC Capillary Glucose 80 Calcium 9.1 Iron 67 TIBC 212 L % Saturation 32 Total Bilirubin 0.5 AST 21 ALT 12 Alkaline Phosphatase 76 Total Protein 6.0 L Albumin 3.4 L Quality VTE Prophylaxis VTE prophylaxis: pharmacologic ordered (eliquis)
[2024-07-13 14:00] VITALS: BP 153/76; PULSE 60; RESP 12; TEMP 36.2; O2SAT 100
[2024-07-13] MEDS: hydrOXYzine HCL 10 MG TABLET PO (21:25)
[2024-07-13] MEDS: PRAVASTATIN SODIUM 20 MG TABLET 80 MG PO (21:25)
[2024-07-13 22:00] VITALS: BP 189/87; PULSE 60; RESP 20; TEMP 36.8; O2SAT 100
[2024-07-14 05:40] VITALS: BP 143/82; PULSE 60; RESP 20; TEMP 36.1; O2SAT 100
[2024-07-14] MEDS: LEVOTHYROXINE SODIUM 50 MCG TABLET PO (05:49)
[2024-07-14 07:10] LABS: Alanine Aminotransferase 12 U/L (6-35); Albumin Level 3.5 g/dL (3.5-5.1); Alkaline Phosphatase 78 U/L (38-126); Anion Gap 10 mmol/L (4-12); Aspartate Amino Transferase 20 U/L (14-36); Bilirubin,Total 0.5 mg/dL (0.2-1.3); Blood Urea Nitrogen 35 mg/dL (7-17); Calcium 9.2 mg/dL (8.4-10.2); Carbon Dioxide 21 mmol/L (22-30); Chloride 107 mmol/L (98-107); Estimated CRCL calculation 18 ml/min; Estimated Glomerular Filt Rate 28; Glucose 80 mg/dL (65-110); Potassium 4.1 mmol/L (3.4-5.0); Sodium 138 mmol/L (137-145)
--- NOTE | 2024-07-14 08:30 | P.PNIM_ITS ---
Progress Note: A&P Assessment and Plan (1) Orthostatic hypotension: Code(s): I95.1 - Orthostatic hypotension Status: Acute Assessment and Plan: Improved. (2) Hematuria due to cystitis: Code(s): N30.91 - Cystitis, unspecified with hematuria Status: Acute Assessment and Plan: Continue with antibiotics (3) Obstruction of urinary stent: Qualifiers: Encounter type: initial encounter Qualified Code(s): T83.193A - Other mechanical complication of other urinary stent, initial encounter Code(s): T83.193A - Other mechanical complication of other urinary stent, initial encounter Status: Acute Assessment and Plan: Urinary catheter draining fine. Continue current treatment. (4) UTI (urinary tract infection): Qualifiers: Urinary tract infection type: acute pyelonephritis Qualified Code(s): N10 - Acute pyelonephritis Code(s): N39.0 - Urinary tract infection, site not specified Status: Acute Assessment and Plan: Continue antibiotics. (5) Ureterolithiasis: Code(s): N20.1 - Calculus of ureter Status: Acute Assessment and Plan: Stable, continue current treatment. (6) Hypertension: Qualifiers: Hypertension type: essential hypertension Qualified Code(s): I10 - Essential (primary) hypertension Code(s): I10 - Essential (primary) hypertension Status: Acute Assessment and Plan: Stable on current medication. (7) Dyslipidemia: Code(s): E78.5 - Hyperlipidemia, unspecified Status: Chronic Assessment and Plan: Stable on current medication. (8) Chronic kidney disease: Qualifiers: Chronic kidney disease stage: unspecified stage Qualified Code(s): N18.9 - Chronic kidney disease, unspecified Code(s): N18.9 - Chronic kidney disease, unspecified Status: Chronic Assessment and Plan: Stable (9) Back pain: Code(s): M54.9 - Dorsalgia, unspecified Status: Acute Assessment and Plan: Pain well controlled. (10) Hx of halfway use of blood thinners: Code(s): Z92.29 - Personal history of other drug therapy Status: Acute Assessment and Plan: Stable. Continue current treatment. (11) Stone, kidney: Code(s): N20.0 - Calculus of kidney Status: Acute Assessment and Plan: Urology following. (12) Hydronephrosis, left: Code(s): N13.30 - Unspecified hydronephrosis Status: Acute Assessment and Plan: Urology following. (13) Obstruction of left ureteropelvic junction (UPJ): Code(s): N13.5 - Crossing vessel and stricture of ureter without hydronephrosis Status: Acute Assessment and Plan: Plan is to continue current treatment. Discharge with Calderon catheter on. Waiting for home health care or long term placement. Plan UTI/cystitis -hematuria - complicated by chronic ureter stent left ## Urine positive for Nitrates and Leuks - culture pending. - Rocephin IVPB daily - follow culture - continue calderon catheter for I&O and obstuction will consider removal prior to discharge. - urology consulted and cleared for discharge - no intervention - continue IV fluids, monitor H&H Continue ceftriaxone, urine culture shows contamination Remove Calderon catheter today, if retention persists, will placed urinary catheter back orthostatic hypotension - continue with fluids, monitor vitals. - up with assist and walker. generalized fatigue and weakness -->could be result of UTI/cystitis the complicated by chronic left ureteral stent. - considered Discharge home today, however will hold today. - PT/OT eval and treat for weakness - consider home health at discharge Acute on Chronic Renal failure - stage 4 - continue IV fluids - monitor BUN/Creat -> GFR daily. - will need to follow up outpatient. Renal function improving, Cr 1.73 today chronic Afib, HTN, CHF hx - contiue Eliquis, Sotalol - monitor closely Stable DVT prophalaxis - Continue Eliguis Waiting for home health/long term placement Patient will benefit from rehab in the long term Subjective Date/time seen: 07/14/24 08:30 Interval history: I saw examined patient today, patient feels better, still has general weakness. Unable to ambulated without assistance Patient denies abdomen pain, chest pain, patient afebrile, blood pressure stable Exam Narrative: GENERAL: Pleasant, in no acute distress. Well-nourished. - EYES: EOMI. Anicteric. - HENT: Moist mucous membranes. - LUNGS: Clear to auscultation bilateral ly, no wheezing, rhonchi, or rales. - CARDIOVASCULAR: Regular rate and rhyth m. No murmur. No JVD. - ABDOMEN: Soft, non-tender and non-dist ended. No palpable masses. Folic catheter in-situ - EXTREMITIES: No edema. Peripheral puls es 2+. Non-tender. - NEUROLOGIC: No focal neurological defi cits. CN II-XII grossly intact. General weakness - PSYCHIATRIC: Awake, Alert and oriented x 3. Appropriate mood and affect. - SKIN: No rashes or lesions. Warm. - LYMPH: No cervical lymphadenopathy. Objective Data Vital Signs Vital Signs: Vital Signs - 24 hr 07/13/24 09:13 07/13/24 09:15 07/13/24 14:00 Temperature 97.2 F L Pulse Rate 75 60 Respiratory Rate 12 Blood Pressure 153/76 H Pulse Oximetry 100 100 Oxygen Delivery Room Air 07/13/24 22:00 07/14/24 05:40 Temperature 98.3 F 97.0 F L Pulse Rate 60 60 Respiratory Rate 20 20 Blood Pressure 189/87 H 143/82 H Pulse Oximetry 100 100 Oxygen Delivery Intake/Output Intake/Output: Intake & Output 07/11/24 07/12/24 07/13/24 07/14/24 23:59 23:59 23:59 23:59 Intake Total 1280 1390 400 Output Total 9279 201 9071 Balance -170 690 -900 Meds/Results Medications: Active Medications Generic Name Dose Route Start Last Admin Trade Name Freq PRN Reason Stop Dose Admin Acetaminophen 650 mg 07/11/24 22:16 Acetaminophen 325 Mg Tablet PO Q4H PRN Mild Pain (1-3) or Fever Bisacodyl 5 mg 07/12/24 02:20 Bisacodyl 5 Mg Tablet Ec PO QAM PRN Constipation Bupropion HCl 150 mg 07/12/24 09:00 07/13/24 21:26 Bupropion Hcl Sr (12 Hr) 150 Mg Tab PO 150 mg Q12HR RUY Administration Ferrous Sulfate 325 mg 07/12/24 09:00 07/13/24 17:43 Ferrous Sulfate [address] BY MOUTH 325 mg BID RUY Administration Hydroxyzine HCl 10 mg 07/12/24 02:20 07/13/24 21:25 Hydroxyzine Hcl 10 Mg Tablet PO 10 mg HS RUY Administration Ceftriaxone Sodium 1 gm in 50 mls @ 100 mls/hr 07/12/24 22:00 07/13/24 21:27 Rocephin 1 Gm/Ns 50 Ml IVPB 100 mls/hr Q24H RUY Administration Levothyroxine Sodium 50 mcg 07/12/24 06:30 07/14/24 05:49 Levothyroxine Sodium 50 Mcg Tablet PO 50 mcg DAILY@0630 RUY Administration Ondansetron HCl 4 mg 07/11/24 22:16 Ondansetron Inj 4 Mg/2 Ml Vial IV PUSH Q4H PRN Nausea Pravastatin Sodium 80 mg 07/12/24 21:00 07/13/24 21:25 Pravastatin Sodium 20 Mg Tablet PO 80 mg HS RUY Administration Sotalol HCl 40 mg 07/12/24 09:00 07/13/24 21:26 Sotalol Hcl 40 Mg Tablet PO 40 mg Q12HR RUY Administration Tramadol HCl 50 mg 07/12/24 10:30 07/13/24 21:26 Tramadol Hcl (*Crx) 50 Mg Tablet PO 50 mg Q6H PRN Administration moderate pain (scale score 5-6) Vitamin D 2,000 units 07/12/24 09:00 07/13/24 09:15 Cholecalciferol 1,000 Units Tablet PO 2,000 units DAILY RUY Administration Radiology Results: ITS Impressions Chest X-Ray 07/11/24 19:27 IMPRESSION: Findings suggesting prior granulomatous disease, without focal infiltrate or effusion. Abdomen/Pelvis CT 07/11/24 20:21 IMPRESSION: Left-sided hydronephrosis despite left-sided double-J stent in good position for which stent obstruction is suspected. Calcified debris surrounding the proximal third of the double-J stent. Right-sided staghorn calculus. Left-sided 18 mm renal pelvis stone, both unchanged from 12/02/2023. Cholelithiasis without cystitis. Findings suggesting prior granulomatous disease. Labs Labs: Laboratory Results - last 24 hr 07/14/24 06:31 Sodium 138 Potassium 4.1 Chloride 107 Carbon Dioxide 21 L Anion Gap 10 BUN 35 H Creatinine 1.73 H Estim Creat Clear Calc 18 Estimated GFR 28 L Glucose 80 Calcium 9.2 Total Bilirubin 0.5 AST 20 ALT 12 Alkaline Phosphatase 78 Total Protein 6.0 L Albumin 3.5
[2024-07-14 11:03] VITALS: PULSE 60
[2024-07-14] MEDS: SOTALOL HCL 40 MG TABLET PO ×2 (11:03→21:48)
[2024-07-14] MEDS: CHOLECALCIFEROL 1,000 UNITS TABLET 2000 UNITS PO (11:03)
[2024-07-14] MEDS: buPROPion HCL SR (12 HR) 150 MG TAB PO ×2 (11:04→21:49)
[2024-07-14] MEDS: FERROUS SULFATE 325 MG TABLET DR BY MOUTH ×2 (11:06→18:26)
[2024-07-14 14:00] VITALS: BP 161/89; PULSE 72; RESP 18; TEMP 36.2; O2SAT 100
[2024-07-14 20:47] VITALS: BP 142/82; PULSE 62; RESP 16; TEMP 36.4; O2SAT 100
[2024-07-14 21:48] VITALS: PULSE 62
[2024-07-14] MEDS: PRAVASTATIN SODIUM 20 MG TABLET 80 MG PO (21:48)
[2024-07-14] MEDS: hydrOXYzine HCL 10 MG TABLET PO (21:48)
[2024-07-15 05:03] VITALS: BP 158/64; PULSE 60; RESP 16; TEMP 36.4; O2SAT 100
[2024-07-15] MEDS: LEVOTHYROXINE SODIUM 50 MCG TABLET PO (05:20)
[2024-07-15 06:34] LABS: Basophils Percent Auto 0.8 % (0.2-1.2); Eosinophils Absolute Auto 0.3 K/mm3 (0-0.3); Eosinophils Percent Auto 5.7 % (0-4.4); Hematocrit 38.3 % (37.0-47.0); Hemoglobin 12.4 g/dL (12.0-15.0); Immature Granulocyte Absolute 0.01 K/mm3 (0.00-0.031); Immature Granulocyte Percent A 0.2 % (0-0.5); Immature Platelet Fraction Pct 2.5 % (0.9-11.2); Lymphocytes Absolute Auto 1.31 K/mm3 (0.9-3.2); Lymphocytes Percent Auto 26.8 % (18.3-44.2); Mean Corpuscular HGB Conc 32.4 g/dl (32-36); Mean Corpuscular Hemoglobin 31.2 pg (26-34); Mean Corpuscular Volume 96.2 fl (80-100); Mean Platelet Volume 10.4 fl (7.4-10.4); Monocytes Absolute Auto 0.5 K/mm3 (0.1-0.6); Monocytes Percent Auto 11.1 % (2.6-8.5); Neutrophils Absolute Auto 2.7 K/mm3 (1.3-6.7); Neutrophils Percent Auto 55.4 % (45.5-73.1); Platelet Count Result 114 k/mm3 (150-375); Red Blood Count 3.98 M/mm3 (4.2-5.4); White Blood Count 4.9 K/mm3 (4.5-10.0)
[2024-07-15 06:51] LABS: Alanine Aminotransferase 13 U/L (6-35); Albumin Level 3.4 g/dL (3.5-5.1); Alkaline Phosphatase 77 U/L (38-126); Anion Gap 9 mmol/L (4-12); Aspartate Amino Transferase 20 U/L (14-36); Bilirubin,Total 0.4 mg/dL (0.2-1.3); Blood Urea Nitrogen 37 mg/dL (7-17); Calcium 9.1 mg/dL (8.4-10.2); Carbon Dioxide 21 mmol/L (22-30); Chloride 108 mmol/L (98-107); Estimated CRCL calculation 18 ml/min; Estimated Glomerular Filt Rate 27; Glucose 82 mg/dL (65-110); Sodium 138 mmol/L (137-145)
[2024-07-15 08:31] VITALS: PULSE 60
[2024-07-15] MEDS: SOTALOL HCL 40 MG TABLET PO ×2 (08:31→21:23)
[2024-07-15] MEDS: FERROUS SULFATE 325 MG TABLET DR BY MOUTH ×2 (08:31→18:03)
[2024-07-15] MEDS: buPROPion HCL SR (12 HR) 150 MG TAB PO ×2 (08:31→21:23)
[2024-07-15] MEDS: CHOLECALCIFEROL 1,000 UNITS TABLET 2000 UNITS PO (08:31)
--- NOTE | 2024-07-15 10:34 | PM.IMPN ---
Progress Note: A&P Assessment and Plan (1) Orthostatic hypotension: Code(s): I95.1 - Orthostatic hypotension Status: Acute Assessment and Plan: Improved. (2) Hematuria due to cystitis: Code(s): N30.91 - Cystitis, unspecified with hematuria Status: Acute Assessment and Plan: Continue with antibiotics (3) Obstruction of urinary stent: Qualifiers: Encounter type: initial encounter Qualified Code(s): T83.193A - Other mechanical complication of other urinary stent, initial encounter Code(s): T83.193A - Other mechanical complication of other urinary stent, initial encounter Status: Acute Assessment and Plan: Urinary catheter draining fine. Continue current treatment. (4) UTI (urinary tract infection): Qualifiers: Urinary tract infection type: acute pyelonephritis Qualified Code(s): N10 - Acute pyelonephritis Code(s): N39.0 - Urinary tract infection, site not specified Status: Acute Assessment and Plan: Continue antibiotics. (5) Ureterolithiasis: Code(s): N20.1 - Calculus of ureter Status: Acute Assessment and Plan: Stable, continue current treatment. (6) Hypertension: Qualifiers: Hypertension type: essential hypertension Qualified Code(s): I10 - Essential (primary) hypertension Code(s): I10 - Essential (primary) hypertension Status: Acute Assessment and Plan: Stable on current medication. (7) Dyslipidemia: Code(s): E78.5 - Hyperlipidemia, unspecified Status: Chronic Assessment and Plan: Stable on current medication. (8) Chronic kidney disease: Qualifiers: Chronic kidney disease stage: unspecified stage Qualified Code(s): N18.9 - Chronic kidney disease, unspecified Code(s): N18.9 - Chronic kidney disease, unspecified Status: Chronic Assessment and Plan: Stable (9) Back pain: Code(s): M54.9 - Dorsalgia, unspecified Status: Acute Assessment and Plan: Pain well controlled. (10) Hx of shelter use of blood thinners: Code(s): Z92.29 - Personal history of other drug therapy Status: Acute Assessment and Plan: Stable. Continue current treatment. (11) Stone, kidney: Code(s): N20.0 - Calculus of kidney Status: Acute Assessment and Plan: Urology following. (12) Hydronephrosis, left: Code(s): N13.30 - Unspecified hydronephrosis Status: Acute Assessment and Plan: Urology following. (13) Obstruction of left ureteropelvic junction (UPJ): Code(s): N13.5 - Crossing vessel and stricture of ureter without hydronephrosis Status: Acute Assessment and Plan: Plan is to continue current treatment. Discharge with Calderon catheter on. Waiting for home health care or [place] [facility] placement. Plan UTI/cystitis -hematuria - complicated by chronic ureter stent left ## Urine positive for Nitrates and Leuks - culture pending. - Rocephin IVPB daily - follow culture - continue calderon catheter for I&O and obstuction will consider removal prior to discharge. - urology consulted and cleared for discharge - no intervention - continue IV fluids, monitor H&H Continue ceftriaxone, urine culture shows contamination Removed Calderon, no urinary retention Continue cefdinir p.o. after discharge orthostatic hypotension Received fluid resuscitation Resolved generalized fatigue and weakness -->could be result of UTI/cystitis the complicated by chronic left ureteral stent. - considered Discharge home today, however will hold today. 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 - will need to follow up outpatient. Renal function improving, Cr 1.75 today chronic Afib, HTN, CHF hx -contiue Eliquis, Sotalol Stable DVT prophalaxis - Continue Eliguis Subjective Date/time seen: 07/15/24 10:34 Interval history: I saw examined patient today, patient feels better, still has general weakness but has improved significantly. Calderon catheter was removed yesterday, patient does not have urine retention. Patient denies abdomen pain, chest pain, patient afebrile, blood pressure stable Exam Narrative: GENERAL: Pleasant, in no acute distress. Well-nourished. - EYES: EOMI. Anicteric. - HENT: Moist mucous membranes. - LUNGS: Clear to auscultation bilaterally, no wheezing, rhonchi, or rales. - CARDIOVASCULAR: Regular rate and rhythm. No murmur. No JVD. - ABDOMEN: Soft, non-tender and non-distended. No palpable masses. Folic catheter in-situ - EXTREMITIES: No edema. Peripheral pulses 2+. Non-tender. - NEUROLOGIC: No focal neurological deficits. CN II-XII grossly intact. General weakness - PSYCHIATRIC: Awake, Alert and oriented x 3. Appropriate mood and affect. - SKIN: No rashes or lesions. Warm. - LYMPH: No cervical lymphadenopathy. Objective Data Vital Signs Vital Signs: Vital Signs - 24 hr 07/14/24 11:03 07/14/24 14:00 07/14/24 20:47 Temperature 97.2 F L 97.5 F L Pulse Rate 60 72 62 Respiratory Rate 18 16 Blood Pressure 161/89 H 142/82 H Pulse Oximetry 100 100 Oxygen Delivery 07/14/24 21:36 07/14/24 21:48 07/15/24 05:03 Temperature 97.5 F L Pulse Rate 62 60 Respiratory Rate 16 Blood Pressure 158/64 H Pulse Oximetry 100 Oxygen Delivery Room Air 07/15/24 08:31 Temperature Pulse Rate 60 Respiratory Rate Blood Pressure Pulse Oximetry Oxygen Delivery Intake/Output Intake/Output: Intake & Output 07/12/24 07/13/24 07/14/24 07/15/24 23:59 23:59 23:59 23:59 Intake Total 1280 1440 1170 790 Output Total 8025 410 3394 Balance -170 740 -380 790 Meds/Results Medications: Active Medications Generic Name Dose Route Start Last Admin Trade Name Freq PRN Reason Stop Dose Admin Acetaminophen 650 mg 07/11/24 22:16 Acetaminophen 325 Mg Tablet PO Q4H PRN Mild Pain (1-3) or Fever Bisacodyl 5 mg 07/12/24 02:20 Bisacodyl 5 Mg Tablet Ec PO QAM PRN Constipation Bupropion HCl 150 mg 07/12/24 09:00 07/15/24 08:31 Bupropion Hcl Sr (12 Hr) 150 Mg Tab PO 150 mg Q12HR RUY Administration Ferrous Sulfate 325 mg 07/12/24 09:00 07/15/24 08:31 Ferrous Sulfate [address] BY MOUTH 325 mg BID RUY Administration Hydroxyzine HCl 10 mg 07/12/24 02:20 07/14/24 21:48 Hydroxyzine Hcl 10 Mg Tablet PO 10 mg HS RUY Administration Ceftriaxone Sodium 1 gm in 50 mls @ 100 mls/hr 07/12/24 22:00 07/14/24 22:54 Rocephin 1 Gm/Ns 50 Ml IVPB Infused Q24H RUY Infusion Levothyroxine Sodium 50 mcg 07/12/24 06:30 07/15/24 05:20 Levothyroxine Sodium 50 Mcg Tablet PO 50 mcg DAILY@0630 RUY Administration Ondansetron HCl 4 mg 07/11/24 22:16 Ondansetron Inj 4 Mg/2 Ml Vial IV PUSH Q4H PRN Nausea Pravastatin Sodium 80 mg 07/12/24 21:00 07/14/24 21:48 Pravastatin Sodium 20 Mg Tablet PO 80 mg HS RUY Administration Sotalol HCl 40 mg 07/12/24 09:00 07/15/24 08:31 Sotalol Hcl 40 Mg Tablet PO 40 mg Q12HR RUY Administration Tramadol HCl 50 mg 07/12/24 10:30 07/13/24 21:26 Tramadol Hcl (*Crx) 50 Mg Tablet PO 50 mg Q6H PRN Administration moderate pain (scale score 5-6) Vitamin D 2,000 units 07/12/24 09:00 07/15/24 08:31 Cholecalciferol 1,000 Units Tablet PO 2,000 units DAILY RUY Administration Radiology Results: ITS Impressions Chest X-Ray 07/11/24 19:27 IMPRESSION: Findings suggesting prior granulomatous disease, without focal infiltrate or effusion. Abdomen/Pelvis CT 07/11/24 20:21 IMPRESSION: Left-sided hydronephrosis despite left-sided double-J stent in good position for which stent obstruction is suspected. Calcified debris surrounding the proximal third of the double-J stent. Right-sided staghorn calculus. Left-sided 18 mm renal pelvis stone, both unchanged from 12/02/2023. Cholelithiasis without cystitis. Findings suggesting prior granulomatous disease. Labs Labs: Laboratory Results - last 24 hr 07/15/24 06:10 WBC 4.9 RBC 3.98 L Hgb 12.4 Hct 38.3 MCV 96.2 MCH 31.2 MCHC 32.4 RDW 13.0 Plt Count 114 L MPV 10.4 Immature Gran % (Auto) 0.2 Neut % (Auto) 55.4 Lymph % (Auto) 26.8 [place] % (Auto) 11.1 H Eos % (Auto) 5.7 H Baso % (Auto) 0.8 Lymph # (Auto) 1.31 [place] # (Auto) 0.5 Eos # (Auto) 0.3 Baso # (Auto) 0.0 Abs Immat Gran (auto) 0.01 Absolute Neuts (auto) 2.7 Absolute Nucleated RBC 0.000 Nucleated RBC % 0.0 % Immature Plt Fraction 2.5 Sodium 138 Potassium 4.0 Chloride 108 H Carbon Dioxide 21 L Anion Gap 9 BUN 37 H Creatinine 1.75 H Estim Creat Clear Calc 18 Estimated GFR 27 L Glucose 82 Calcium 9.1 Total Bilirubin 0.4 AST 20 ALT 13 Alkaline Phosphatase 77 Total Protein 6.0 L Albumin 3.4 L
--- NOTE | 2024-07-15 10:51 | PM.DS ---
DS: Admitting Diagnosis Discharge Date 07/15/24 Admitting Diagnosis (1) Orthostatic hypotension: Code(s): I95.1 - Orthostatic hypotension Status: Acute Assessment and Plan: Improved. (2) Hematuria due to cystitis: Code(s): N30.91 - Cystitis, unspecified with hematuria Status: Acute Assessment and Plan: Continue with antibiotics (3) Obstruction of urinary stent: Qualifiers: Encounter type: initial encounter Qualified Code(s): T83.193A - Other mechanical complication of other urinary stent, initial encounter Code(s): T83.193A - Other mechanical complication of other urinary stent, initial encounter Status: Acute Assessment and Plan: Urinary catheter draining fine. Continue current treatment. (4) UTI (urinary tract infection): Qualifiers: Urinary tract infection type: acute pyelonephritis Qualified Code(s): N10 - Acute pyelonephritis Code(s): N39.0 - Urinary tract infection, site not specified Status: Acute Assessment and Plan: Continue antibiotics. (5) Ureterolithiasis: Code(s): N20.1 - Calculus of ureter Status: Acute Assessment and Plan: Stable, continue current treatment. (6) Hypertension: Qualifiers: Hypertension type: essential hypertension Qualified Code(s): I10 - Essential (primary) hypertension Code(s): I10 - Essential (primary) hypertension Status: Acute Assessment and Plan: Stable on current medication. (7) Dyslipidemia: Code(s): E78.5 - Hyperlipidemia, unspecified Status: Chronic Assessment and Plan: Stable on current medication. (8) Chronic kidney disease: Qualifiers: Chronic kidney disease stage: unspecified stage Qualified Code(s): N18.9 - Chronic kidney disease, unspecified Code(s): N18.9 - Chronic kidney disease, unspecified Status: Chronic Assessment and Plan: Stable (9) Back pain: Code(s): M54.9 - Dorsalgia, unspecified Status: Acute Assessment and Plan: Pain well controlled. (10) Hx of [facility] use of blood thinners: Code(s): Z92.29 - Personal history of other drug therapy Status: Acute Assessment and Plan: Stable. Continue current treatment. (11) Stone, kidney: Code(s): N20.0 - Calculus of kidney Status: Acute Assessment and Plan: Urology following. (12) Hydronephrosis, left: Code(s): N13.30 - Unspecified hydronephrosis Status: Acute Assessment and Plan: Urology following. (13) Obstruction of left ureteropelvic junction (UPJ): Code(s): DS: Discharge Diagnosis Discharge Diagnosis (1) Orthostatic hypotension: Code(s): I95.1 - Orthostatic hypotension Status: Acute Assessment and Plan: Improved. (2) Hematuria due to cystitis: Code(s): N30.91 - Cystitis, unspecified with hematuria Status: Acute Assessment and Plan: Continue with antibiotics (3) Obstruction of urinary stent: Qualifiers: Encounter type: initial encounter Qualified Code(s): T83.193A - Other mechanical complication of other urinary stent, initial encounter Code(s): T83.193A - Other mechanical complication of other urinary stent, initial encounter Status: Acute Assessment and Plan: Urinary catheter draining fine. Continue current treatment. (4) UTI (urinary tract infection): Qualifiers: Urinary tract infection type: acute pyelonephritis Qualified Code(s): N10 - Acute pyelonephritis Code(s): N39.0 - Urinary tract infection, site not specified Status: Acute Assessment and Plan: Continue antibiotics. (5) Ureterolithiasis: Code(s): N20.1 - Calculus of ureter Status: Acute Assessment and Plan: Stable, continue current treatment. (6) Hypertension: Qualifiers: Hypertension type: essential hypertension Qualified Code(s): I10 - Essential (primary) hypertension Code(s): I10 - Essential (primary) hypertension Status: Acute Assessment and Plan: Stable on current medication. (7) Dyslipidemia: Code(s): E78.5 - Hyperlipidemia, unspecified Status: Chronic Assessment and Plan: Stable on current medication. (8) Chronic kidney disease: Qualifiers: Chronic kidney disease stage: unspecified stage Qualified Code(s): N18.9 - Chronic kidney disease, unspecified Code(s): N18.9 - Chronic kidney disease, unspecified Status: Chronic Assessment and Plan: Stable (9) Back pain: Code(s): M54.9 - Dorsalgia, unspecified Status: Acute Assessment and Plan: Pain well controlled. (10) Hx of [employer] use of blood thinners: Code(s): Z92.29 - Personal history of other drug therapy Status: Acute Assessment and Plan: Stable. Continue current treatment. (11) Stone, kidney: Code(s): N20.0 - Calculus of kidney Status: Acute Assessment and Plan: Urology following. (12) Hydronephrosis, left: Code(s): N13.30 - Unspecified hydronephrosis Status: Acute Assessment and Plan: Urology following. (13) Obstruction of left ureteropelvic junction (UPJ): Code(s): N13.5 - Crossing vessel and stricture of ureter without hydronephrosis Status: Acute Assessment and Plan: Plan is to continue current treatment. Discharge with Calderon catheter on. Waiting [facility] health care [facility]. Plan UTI/cystitis -hematuria - complicated by chronic ureter stent left Urine positive for Nitrates and Leuks - culture pending. - Rocephin IVPB daily - follow culture - continue calderon catheter for I&O and obstuction will consider removal prior to discharge. - urology consulted and cleared for discharge - no intervention - continue IV fluids, monitor H&H Continue ceftriaxone, urine culture shows contamination Removed Calderon, no urinary retention Continue cefdinir p.o. after discharge orthostatic hypotension Received fluid resuscitation Resolved generalized fatigue and weakness -->could be result of UTI/cystitis the complicated by chronic left ureteral stent. - considered Discharge home today, however will hold today. 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 - will need to follow up outpatient. Renal function improving, Cr 1.75 today chronic Afib, HTN, CHF hx -contiue Eliquis, Sotalol Stable DVT prophalaxis - Continue Eliguis DS: Summary Time Spent with Patient Time attestation: Total time spent providing and/or coordinating discharge services: Exam Narrative: GENERAL: Pleasant, in no acute distress. Well-nourished. - EYES: EOMI. Anicteric. - HENT: Moist mucous membranes. - LUNGS: Clear to auscultation bilaterally, no wheezing, rhonchi, or rales. - CARDIOVASCULAR: Regular rate and rhythm. No murmur. No JVD. - ABDOMEN: Soft, non-tender and non-distended. No palpable masses. Folic catheter in-situ - EXTREMITIES: No edema. Peripheral pulses 2+. Non-tender. - NEUROLOGIC: No focal neurological deficits. CN II-XII grossly intact. General weakness - PSYCHIATRIC: Awake, Alert and oriented x 3. Appropriate mood and affect. - SKIN: No rashes or lesions. Warm. - LYMPH: No cervical lymphadenopathy. DS: Data Data Completed and Pending Labs on day of discharge: Labs from last 24 hours 07/15/24 06:10 WBC 4.9 RBC 3.98 L Hgb 12.4 Hct 38.3 MCV 96.2 MCH 31.2 MCHC 32.4 RDW 13.0 Plt Count 114 L MPV 10.4 Immature Gran % (Auto) 0.2 Neut % (Auto) 55.4 Lymph % (Auto) 26.8 [place] % (Auto) 11.1 H Eos % (Auto) 5.7 H Baso % (Auto) 0.8 Lymph # (Auto) 1.31 [place] # (Auto) 0.5 Eos # (Auto) 0.3 Baso # (Auto) 0.0 Abs Immat Gran (auto) 0.01 Absolute Neuts (auto) 2.7 Absolute Nucleated RBC 0.000 Nucleated RBC % 0.0 % Immature Plt Fraction 2.5 Sodium 138 Potassium 4.0 Chloride 108 H Carbon Dioxide 21 L Anion Gap 9 BUN 37 H Creatinine 1.75 H Estim Creat Clear Calc 18 Estimated GFR 27 L Glucose 82 Calcium 9.1 Total Bilirubin 0.4 AST 20 ALT 13 Alkaline Phosphatase 77 Total Protein 6.0 L Albumin 3.4 L Discharge Plan Discharge Attending physician on discharge: liyl Consulting providers: Tim Brennan Discharging Clinician: Wilver Marroquin Anticipated Discharge Date/Time: 07/15/24 00:52 Patient Disposition: Home Health Service Activity: may shower and as tolerated Diet: heart healthy Discharge Instructions: Follow-up with urology for further evaluation This week. call to schedule an appointment. Increase your fluid intake, including electrolyte solution such as Gatorade, Pedialyte. Heart healthy diet, continue your home medications. antibiotic, take as instructed until completed. follow-up with your primary care provider in the next week. Return to the emergency department with any worrisome signs or symptoms. Per care coordination [facility] ([phone]) to see for RN/PT/OT services *RN please fax discharge instructions to [phone]* Patient Instructions: Antibiotic Form Patient Language: Czech Stand Alone Forms: General Discharge Information Follow-up/Referrals: Felice,Andrés Jasso MD [Primary Care Provider] - (See primary care doctor in 1 week) Nabil Shaikh MD [Physician] - 1 Week Discharge Medications: New cefdinir 300 mg capsule 300 mg PO Q12H 7 Days Qty: 14 0RF Continued bupropion HCl 150 mg Tablet Sustained-Release 12 Hr 150 mg PO BID pravastatin 80 mg tablet 80 mg PO HS levothyroxine 50 mcg tablet 50 mcg PO QAM cholecalciferol (vitamin D3) [Vitamin D3] 50 mcg (2,000 unit) Capsule 50 mcg PO DAILY ferrous sulfate 325 mg (65 mg iron) tablet 325 mg PO BID hydroxyzine HCl 10 mg tablet 10 mg PO HS tramadol 50 mg tablet 50 mg PO .Q6 hours PRN (Reason: moderate pain (scale score 5-6)) Eliquis 2.5 mg tablet 2.5 mg PO BID Patient Comments: on hold per pt after 02/07/24 bisacodyl [Laxative (bisacodyl)] 5 mg tablet,delayed release (DR/EC) 5 mg PO QAM PRN (Reason: Constipation) Patient Comments: Takes every other day sotalol 80 mg tablet 40 mg PO BID Date of admission: 07/11/24 22:16 Primary Care Provider: MelissaAndrés Admitting Provider: Antonina Zarco Attending physician on admission: Antonina Zarco Condition: Stable
[2024-07-15 16:13] VITALS: BP 165/84; PULSE 61; RESP 16; TEMP 36.4; O2SAT 100
[2024-07-15 20:00] VITALS: PULSE 60; RESP 16; O2SAT 100
[2024-07-15 21:23] VITALS: PULSE 60
[2024-07-15] MEDS: traMADol HCL (*CRX) 50 MG TABLET PO (21:23)
[2024-07-15] MEDS: PRAVASTATIN SODIUM 20 MG TABLET 80 MG PO (21:23)
[2024-07-15] MEDS: hydrOXYzine HCL 10 MG TABLET PO (21:23)
[2024-07-15] MEDS: cefTRIAXone 1 GM VIAL IM (21:24)
[2024-07-15 21:59] VITALS: BP 157/87; PULSE 61; RESP 18; TEMP 36.4; O2SAT 100
[2024-07-16] MEDS: LEVOTHYROXINE SODIUM 50 MCG TABLET PO (05:31)
[2024-07-16 06:00] VITALS: BP 164/99; PULSE 62; RESP 18; TEMP 36.1; O2SAT 100
[2024-07-16 06:36] LABS: Alanine Aminotransferase 14 U/L (6-35); Albumin Level 3.6 g/dL (3.5-5.1); Alkaline Phosphatase 76 U/L (38-126); Anion Gap 12 mmol/L (4-12); Aspartate Amino Transferase 22 U/L (14-36); Bilirubin,Total 0.4 mg/dL (0.2-1.3); Blood Urea Nitrogen 43 mg/dL (7-17); Calcium 9.3 mg/dL (8.4-10.2); Carbon Dioxide 20 mmol/L (22-30); Chloride 108 mmol/L (98-107); Estimated CRCL calculation 15 ml/min; Estimated Glomerular Filt Rate 23; Glucose 84 mg/dL (65-110); Potassium 4.2 mmol/L (3.4-5.0); Sodium 140 mmol/L (137-145)
[2024-07-16] MEDS: FERROUS SULFATE 325 MG TABLET DR BY MOUTH (08:33)
[2024-07-16] MEDS: buPROPion HCL SR (12 HR) 150 MG TAB PO (08:34)
[2024-07-16] MEDS: SOTALOL HCL 40 MG TABLET PO (08:34)
[2024-07-16] MEDS: CHOLECALCIFEROL 1,000 UNITS TABLET 2000 UNITS PO (08:34)
--- NOTE | 2024-07-16 09:17 | P.PNIM_ITS ---
Progress Note: A&P Assessment and Plan (1) Orthostatic hypotension: Code(s): I95.1 - Orthostatic hypotension Status: Acute Assessment and Plan: Improved. (2) Hematuria due to cystitis: Code(s): N30.91 - Cystitis, unspecified with hematuria Status: Acute Assessment and Plan: Continue with antibiotics (3) Obstruction of urinary stent: Qualifiers: Encounter type: initial encounter Qualified Code(s): T83.193A - Other mechanical complication of other urinary stent, initial encounter Code(s): T83.193A - Other mechanical complication of other urinary stent, initial encounter Status: Acute Assessment and Plan: Urinary catheter draining fine. Continue current treatment. (4) UTI (urinary tract infection): Qualifiers: Urinary tract infection type: acute pyelonephritis Qualified Code(s): N10 - Acute pyelonephritis Code(s): N39.0 - Urinary tract infection, site not specified Status: Acute Assessment and Plan: Continue antibiotics. (5) Ureterolithiasis: Code(s): N20.1 - Calculus of ureter Status: Acute Assessment and Plan: Stable, continue current treatment. (6) Hypertension: Qualifiers: Hypertension type: essential hypertension Qualified Code(s): I10 - Essential (primary) hypertension Code(s): I10 - Essential (primary) hypertension Status: Acute Assessment and Plan: Stable on current medication. (7) Dyslipidemia: Code(s): E78.5 - Hyperlipidemia, unspecified Status: Chronic Assessment and Plan: Stable on current medication. (8) Chronic kidney disease: Qualifiers: Chronic kidney disease stage: unspecified stage Qualified Code(s): N18.9 - Chronic kidney disease, unspecified Code(s): N18.9 - Chronic kidney disease, unspecified Status: Chronic Assessment and Plan: Stable (9) Back pain: Code(s): M54.9 - Dorsalgia, unspecified Status: Acute Assessment and Plan: Pain well controlled. (10) Hx of jail use of blood thinners: Code(s): Z92.29 - Personal history of other drug therapy Status: Acute Assessment and Plan: Stable. Continue current treatment. (11) Stone, kidney: Code(s): N20.0 - Calculus of kidney Status: Acute Assessment and Plan: Urology following. (12) Hydronephrosis, left: Code(s): N13.30 - Unspecified hydronephrosis Status: Acute Assessment and Plan: Urology following. (13) Obstruction of left ureteropelvic junction (UPJ): Code(s): N13.5 - Crossing vessel and stricture of ureter without hydronephrosis Status: Acute Assessment and Plan: Plan is to continue current treatment. Discharge with Calderon catheter on. Waiting for home health care or [facility] placement. Plan UTI/cystitis -hematuria - complicated by chronic ureter stent left Urine positive for Nitrates and Leuks - culture pending. - Rocephin IVPB daily - follow culture - continue calderon catheter for I&O and obstuction will consider removal prior to discharge. - urology consulted and cleared for discharge - no intervention - continue IV fluids, monitor H&H Continue ceftriaxone, urine culture shows contamination Removed Calderon, no urinary retention Continue cefdinir p.o. after discharge orthostatic hypotension Received fluid resuscitation Resolved generalized fatigue and weakness -->could be result of UTI/cystitis the complicated by chronic left ureteral stent. - considered Discharge home today, however will hold today. 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 - will need to follow up outpatient. Renal function improving, Cr 1.75 today chronic Afib, HTN, CHF hx -contiue Eliquis, Sotalol Stable DVT prophalaxis - Continue Eliguis Patient condition is stable. Patient will be discharged home with home health Subjective Date/time seen: 07/16/24 09:17 Interval history: I saw examined patient today, patient feels better, still has general weakness but has improved significantly. Calderon catheter was removed yesterday, patient does not have urine retention. Patient denies abdomen pain, chest pain, patient afebrile, blood pressure stable Exam Narrative: GENERAL: Pleasant, in no acute distress. Well-nourished. - EYES: EOMI. Anicteric. - HENT: Moist mucous membranes. - LUNGS: Clear to auscultation bilateral ly, no wheezing, rhonchi, or rales. - CARDIOVASCULAR: Regular rate and rhyth m. No murmur. No JVD. - ABDOMEN: Soft, non-tender and non-dist ended. No palpable masses. Folic catheter in-situ - EXTREMITIES: No edema. Peripheral puls es 2+. Non-tender. - NEUROLOGIC: No focal neurological defi cits. CN II-XII grossly intact. General weakness - PSYCHIATRIC: Awake, Alert and oriented x 3. Appropriate mood and affect. - SKIN: No rashes or lesions. Warm. - LYMPH: No cervical lymphadenopathy. Objective Data Vital Signs Vital Signs: Vital Signs - 24 hr 07/15/24 16:13 07/15/24 20:00 07/15/24 21:23 Temperature 97.6 F Pulse Rate 61 60 60 Respiratory Rate 16 16 Blood Pressure 165/84 H Pulse Oximetry 100 100 Oxygen Delivery Room Air 07/15/24 21:59 07/16/24 06:00 Temperature 97.6 F 97.0 F L Pulse Rate 61 62 Respiratory Rate 18 18 Blood Pressure 157/87 H 164/99 H Pulse Oximetry 100 100 Oxygen Delivery Intake/Output Intake/Output: Intake & Output 07/13/24 07/14/24 07/15/24 07/16/24 23:59 23:59 23:59 23:59 Intake Total 1440 1170 1545 Output Total 700 1550 Balance 740 -380 1545 Meds/Results Medications: Active Medications Generic Name Dose Route Start Last Admin Trade Name Freq PRN Reason Stop Dose Admin Acetaminophen 650 mg 07/11/24 22:16 Acetaminophen 325 Mg Tablet PO Q4H PRN Mild Pain (1-3) or Fever Bisacodyl 5 mg 07/12/24 02:20 Bisacodyl 5 Mg Tablet Ec PO QAM PRN Constipation Bupropion HCl 150 mg 07/12/24 09:00 07/16/24 08:34 Bupropion Hcl Sr (12 Hr) 150 Mg Tab PO 150 mg Q12HR RUY Administration Ferrous Sulfate 325 mg 07/12/24 09:00 07/16/24 08:33 Ferrous Sulfate [address] BY MOUTH 325 mg BID RUY Administration Hydroxyzine HCl 10 mg 07/12/24 02:20 07/15/24 21:23 Hydroxyzine Hcl 10 Mg Tablet PO 10 mg HS RUY Administration Levothyroxine Sodium 50 mcg 07/12/24 06:30 07/16/24 05:31 Levothyroxine Sodium 50 Mcg Tablet PO 50 mcg DAILY@0630 RUY Administration Ondansetron HCl 4 mg 07/11/24 22:16 Ondansetron Inj 4 Mg/2 Ml Vial IV PUSH Q4H PRN Nausea Pravastatin Sodium 80 mg 07/12/24 21:00 07/15/24 21:23 Pravastatin Sodium 20 Mg Tablet PO 80 mg HS RUY Administration Sotalol HCl 40 mg 07/12/24 09:00 07/16/24 08:34 Sotalol Hcl 40 Mg Tablet PO 40 mg Q12HR RUY Administration Tramadol HCl 50 mg 07/12/24 10:30 07/15/24 21:23 Tramadol Hcl (*Crx) 50 Mg Tablet PO 50 mg Q6H PRN Administration moderate pain (scale score 5-6) Vitamin D 2,000 units 07/12/24 09:00 07/16/24 08:34 Cholecalciferol 1,000 Units Tablet PO 2,000 units DAILY RUY Administration Radiology Results: ITS Impressions Chest X-Ray 07/11/24 19:27 IMPRESSION: Findings suggesting prior granulomatous disease, without focal infiltrate or effusion. Abdomen/Pelvis CT 07/11/24 20:21 IMPRESSION: Left-sided hydronephrosis despite left-sided double-J stent in good position for which stent obstruction is suspected. Calcified debris surrounding the proximal third of the double-J stent. Right-sided staghorn calculus. Left-sided 18 mm renal pelvis stone, both unchanged from 12/02/2023. Cholelithiasis without cystitis. Findings suggesting prior granulomatous disease. Labs Labs: Laboratory Results - last 24 hr 07/16/24 06:14 Sodium 140 Potassium 4.2 Chloride 108 H Carbon Dioxide 20 L Anion Gap 12 BUN 43 H Creatinine 2.03 H Estim Creat Clear Calc 15 Estimated GFR 23 L Glucose 84 Calcium 9.3 Total Bilirubin 0.4 AST 22 ALT 14 Alkaline Phosphatase 76 Total Protein 6.0 L Albumin 3.6
--- NOTE | 2024-07-16 09:18 | P.DS_ITS ---
DS: Admitting Diagnosis Discharge Date 07/16 Admitting Diagnosis (1) Orthostatic hypotension: Code(s): I95.1 - Orthostatic hypotension Status: Acute Assessment and Plan: Improved. (2) Hematuria due to cystitis: Code(s): N30.91 - Cystitis, unspecified with hematuria Status: Acute Assessment and Plan: Continue with antibiotics (3) Obstruction of urinary stent: Qualifiers: Encounter type: initial encounter Qualified Code(s): T83.193A - Other mechanical complication of other urinary stent, initial encounter Code(s): T83.193A - Other mechanical complication of other urinary stent, initial encounter Status: Acute Assessment and Plan: Urinary catheter draining fine. Continue current treatment. (4) UTI (urinary tract infection): Qualifiers: Urinary tract infection type: acute pyelonephritis Qualified Code(s): N10 - Acute pyelonephritis Code(s): N39.0 - Urinary tract infection, site not specified Status: Acute Assessment and Plan: Continue antibiotics. (5) Ureterolithiasis: Code(s): N20.1 - Calculus of ureter Status: Acute Assessment and Plan: Stable, continue current treatment. (6) Hypertension: Qualifiers: Hypertension type: essential hypertension Qualified Code(s): I10 - Essential (primary) hypertension Code(s): I10 - Essential (primary) hypertension Status: Acute Assessment and Plan: Stable on current medication. (7) Dyslipidemia: Code(s): E78.5 - Hyperlipidemia, unspecified Status: Chronic Assessment and Plan: Stable on current medication. (8) Chronic kidney disease: Qualifiers: Chronic kidney disease stage: unspecified stage Qualified Code(s): N18.9 - Chronic kidney disease, unspecified Code(s): N18.9 - Chronic kidney disease, unspecified Status: Chronic Assessment and Plan: Stable (9) Back pain: Code(s): M54.9 - Dorsalgia, unspecified Status: Acute Assessment and Plan: Pain well controlled. (10) Hx of shelter use of blood thinners: Code(s): Z92.29 - Personal history of other drug therapy Status: Acute Assessment and Plan: Stable. Continue current treatment. (11) Stone, kidney: Code(s): N20.0 - Calculus of kidney Status: Acute Assessment and Plan: Urology following. (12) Hydronephrosis, left: Code(s): N13.30 - Unspecified hydronephrosis Status: Acute Assessment and Plan: Urology following. (13) Obstruction of left ureteropelvic junction (UPJ): Code(s): N13.5 - Crossing vessel and stricture of ureter without hydronephrosis Status: Acute Assessment and Plan: Plan is to continue current treatment. Discharge with Calderon catheter on. Waiting for home health care or senior living placement. DS: Discharge Diagnosis Discharge Diagnosis (1) Orthostatic hypotension: Code(s): I95.1 - Orthostatic hypotension Status: Acute Assessment and Plan: Improved. (2) Hematuria due to cystitis: Code(s): N30.91 - Cystitis, unspecified with hematuria Status: Acute Assessment and Plan: Continue with antibiotics (3) Obstruction of urinary stent: Qualifiers: Encounter type: initial encounter Qualified Code(s): T83.193A - Other mechanical complication of other urinary stent, initial encounter Code(s): T83.193A - Other mechanical complication of other urinary stent, initial encounter Status: Acute Assessment and Plan: Urinary catheter draining fine. Continue current treatment. (4) UTI (urinary tract infection): Qualifiers: Urinary tract infection type: acute pyelonephritis Qualified Code(s): N10 - Acute pyelonephritis Code(s): N39.0 - Urinary tract infection, site not specified Status: Acute Assessment and Plan: Continue antibiotics. (5) Ureterolithiasis: Code(s): N20.1 - Calculus of ureter Status: Acute Assessment and Plan: Stable, continue current treatment. (6) Hypertension: Qualifiers: Hypertension type: essential hypertension Qualified Code(s): I10 - Essential (primary) hypertension Code(s): I10 - Essential (primary) hypertension Status: Acute Assessment and Plan: Stable on current medication. (7) Dyslipidemia: Code(s): E78.5 - Hyperlipidemia, unspecified Status: Chronic Assessment and Plan: Stable on current medication. (8) Chronic kidney disease: Qualifiers: Chronic kidney disease stage: unspecified stage Qualified Code(s): N18.9 - Chronic kidney disease, unspecified Code(s): N18.9 - Chronic kidney disease, unspecified Status: Chronic Assessment and Plan: Stable (9) Back pain: Code(s): M54.9 - Dorsalgia, unspecified Status: Acute Assessment and Plan: Pain well controlled. (10) Hx of shelter use of blood thinners: Code(s): Z92.29 - Personal history of other drug therapy Status: Acute Assessment and Plan: Stable. Continue current treatment. (11) Stone, kidney: Code(s): N20.0 - Calculus of kidney Status: Acute Assessment and Plan: Urology following. (12) Hydronephrosis, left: Code(s): N13.30 - Unspecified hydronephrosis Status: Acute Assessment and Plan: Urology following. (13) Obstruction of left ureteropelvic junction (UPJ): Code(s): N13.5 - Crossing vessel and stricture of ureter without hydronephrosis Status: Acute Assessment and Plan: Plan is to continue current treatment. Discharge with Calderon catheter on. Waiting for home health care or senior living placement. 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 The patient reported that she felt well besides her depression and difficulties adjusting since her 3 years ago. She had gotten up earlier in the day and not ready to go to lunch with some of her friends. She noticed that she was extremely lightheaded. She also noticed some faint pink tinged and a strong odor and increased urinary frequency throughout the day. She denies any dysuria. She had not had any fevers or chills. She reports that she was still able to go out to lunch with her friends and had a good appetite. She denied any nausea or vomiting. She reports that she is having her chronic back pain that is exacerbated by laying in the ER bed. She denies any flank pain or tenderness. She reports that she has chronic ureteral stents in place and a Dr. Shaikh usually changes the stents every 4 months. Her last stent exchange was in April. CT scan in the ER demonstrated severe left hydronephrosis with the left double J-stent in approp riate position with obstruction likely due to calcified debris involving the proximal 1/3 of the stent. This appearance is similar to the patient's last CT at which time she had stent exchange by Dr. Shaikh.The patient reports that she has had depression since her . She voices concerns about her ability to keep up with her house work and maintenance on her house. She is voicing concerns that she may need to consider moving to a correction community. The following med issues have been addressed during hospitalization UTI/cystitis -hematuria - complicated by chronic ureter stent left Urine positive for Nitrates and Leuks - culture pending. - Rocephin IVPB daily - follow culture - continue calderon catheter for I&O and obstuction will consider removal prior to discharge. - urology consulted and cleared for discharge - no intervention - continue IV fluids, monitor H&H Continue ceftriaxone, urine culture shows contamination Removed Calderon, no urinary retention Continue cefdinir p.o. after discharge orthostatic hypotension Received fluid resuscitation Resolved generalized fatigue and weakness -->could be result of UTI/cystitis the complicated by chronic left ureteral stent. - considered Discharge home today, however will hold today. 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 - will need to follow up outpatient. Renal function improving, Cr 1.75 today chronic Afib, HTN, CHF hx -contiue Eliquis, Sotalol Stable DVT prophalaxis - Continue Eliguis Time Spent with Patient Time attestation: Total time spent providing and/or coordinating discharge services: Exam Narrative: GENERAL: Pleasant, in no acute distress. Well-nourished. - EYES: EOMI. Anicteric. - HENT: Moist mucous membranes. - LUNGS: Clear to auscultation bilateral ly, no wheezing, rhonchi, or rales. - CARDIOVASCULAR: Regular rate and rhyth m. No murmur. No JVD. - ABDOMEN: Soft, non-tender and non-dist ended. No palpable masses. Folic catheter in-situ - EXTREMITIES: No edema. Peripheral puls es 2+. Non-tender. - NEUROLOGIC: No focal neurological defi cits. CN II-XII grossly intact. General weakness - PSYCHIATRIC: Awake, Alert and oriented x 3. Appropriate mood and affect. - SKIN: No rashes or lesions. Warm. - LYMPH: No cervical lymphadenopathy. DS: Data Data Completed and Pending Labs on day of discharge: Labs from last 24 hours 07/16/24 06:14 Sodium 140 Potassium 4.2 Chloride 108 H Carbon Dioxide 20 L Anion Gap 12 BUN 43 H Creatinine 2.03 H Estim Creat Clear Calc 15 Estimated GFR 23 L Glucose 84 Calcium 9.3 Total Bilirubin 0.4 AST 22 ALT 14 Alkaline Phosphatase 76 Total Protein 6.0 L Albumin 3.6 Discharge Plan Discharge Attending physician on discharge: lily Consulting providers: Dhruv Shea; Pedro Lorenzo; Christina Tamayo; Edmond Landa; Nery Dexter Discharging Clinician: Wilver Marroquin Anticipated Discharge Date/Time: 07/15/24 00:52 Patient Disposition: Home Health Service Activity: may shower and as tolerated Diet: heart healthy Discharge Instructions: Follow-up with urology for further evaluation This week. call to schedule an appointment. Increase your fluid intake, including electrolyte solution such as Gatorade, Pedialyte. Heart healthy diet, continue your home medications. antibiotic, take as instructed until completed. follow-up with your primary care provider in the next week. Return to the emergency department with any worrisome signs or symptoms. Per care coordination [facility] ([phone]) to see for RN/PT/OT services *RN please fax discharge instructions to [phone]* Patient Instructions: Antibiotic Form Patient Language: Somali Stand Alone Forms: General Discharge Information Follow-up/Referrals: Viveros,Andrés Jasso MD [Primary Care Provider] - (See primary care doctor in 1 week) Nabil Shaikh MD [Physician] - 1 Week Discharge Medications: New cefdinir 300 mg capsule 300 mg PO Q12H 7 Days Qty: 14 0RF Continued bupropion HCl 150 mg Tablet Sustained-Release 12 Hr 150 mg PO BID pravastatin 80 mg tablet 80 mg PO HS levothyroxine 50 mcg tablet 50 mcg PO QAM cholecalciferol (vitamin D3) [Vitamin D3] 50 mcg (2,000 unit) Capsule 50 mcg PO DAILY ferrous sulfate 325 mg (65 mg iron) tablet 325 mg PO BID hydroxyzine HCl 10 mg tablet 10 mg PO HS tramadol 50 mg tablet 50 mg PO .Q6 hours PRN (Reason: moderate pain (scale score 5-6)) Eliquis 2.5 mg tablet 2.5 mg PO BID Patient Comments: on hold per pt after 02/07/24 bisacodyl [Laxative (bisacodyl)] 5 mg tablet,delayed release (DR/EC) 5 mg PO QAM PRN (Reason: Constipation) Patient Comments: Takes every other day sotalol 80 mg tablet 40 mg PO BID Date of admission: 07/11/24 22:16 Primary Care Provider: Felice,Andrés Jasso Admitting Provider: Antonina Zarco Attending physician on admission: Wilver Marroquin Condition: Stable
[2024-07-16 14:00] VITALS: BP 172/85; PULSE 60; RESP 18; TEMP 36.3; O2SAT 100
== END 2024-07-16 14:40 | disposition home health service (06) ==
LOC: ANHED 22:19 → ANH3MEDSUR 07-12 11:17
PROVIDERS: Emergency Medicine; Nurse Practitioner Family; Admitting Provider Internal Medicine; Emergency Provider Physician Assistant; PCP Internal Medicine; Visit Provider Hospitalist
DX: I95.1 Orthostatic hypotension (principal); N30.91 Cystitis, unspecified with hematuria; N13.6 Pyonephrosis; T83.193A Other mechanical complication of other urinary stent, initial encounter; Y73.8 Miscellaneous gastroenterology and urology devices associated with adverse incidents, not elsewhere classified; I13.0 Hypertensive heart and chronic kidney disease with heart failure and stage 1 through stage 4 chronic kidney disease, or unspecified chronic kidney disease; N18.4 Chronic kidney disease, stage 4 (severe); I50.32 Chronic diastolic (congestive) heart failure; N17.9 Acute kidney failure, unspecified; I48.0 Paroxysmal atrial fibrillation; I27.20 Pulmonary hypertension, unspecified; I08.0 Rheumatic disorders of both mitral and aortic valves; R53.83 Other fatigue; R53.1 Weakness; E03.9 Hypothyroidism, unspecified; E78.5 Hyperlipidemia, unspecified; M54.9 Dorsalgia, unspecified; F32.A Depression, unspecified; Z66 Do not resuscitate; Z79.01 Long term (current) use of anticoagulants; Z79.899 Other long term (current) drug therapy; Z95.0 Presence of cardiac pacemaker; Z87.891 Personal history of nicotine dependence; Z86.79 Personal history of other diseases of the circulatory system
CPT/HCPCS: 36415; 71046; 74176; 80048; 80053; 81001; 82948; 83540; 83550; 85025; 85027; 85055; 87086; 93005; 96361; 96365; 96375; 97161; 97165; 99285; A9270; G0378; J0696; J7030

== ENCOUNTER 2024-08-20 10:21 | Outpatient (CLI) | payer MEDICARE, SELFPAY ==
--- OUTSIDE RECORDS SUMMARY | 2024-08-20 12:40 | XMS_ITS | Data Portability ---
Author Organization [place] [facility] [employer], Main Office Address [address] [place] [address] Assessment No assessment recorded. Plan of Treatment Reminders Order Date Submit Date Provider Last Modified By Organization Details Last Modified Time Details Appointments None recorded. Lab lipid panel, serum 025 [employer] [facility], [address], [address], 5 16:41:38 CMP, serum or plasma 025 [employer] [facility], [facility] [address], [address], 5 16:41:39 CBC w/ auto diff 025 025 [employer] [facility], [facility] [address], [address], 5 16:41:37 TSH, serum or plasma 025 025 [employer] [facility], [address], [address], 5 16:41:40 T4, free, serum 025 025 [employer] [facility], [address], [address], 5 16:41:37 iron + TIBC + ferritin, serum 024 024 [employer] [facility], [address], [address], 4 16:01:59 CBC w/ auto diff [id number] [employer], [address], [address], 4 16:49:42 TSH, serum or plasma [employer] [facility], [address], [address], 4 16:01:59 T4, free, serum [employer] [facility], [address], [address], 4 16:01:59 CMP, serum or plasma [employer] [facility], [address], [address], 4 16:01:59 vitamin B12 + folate, serum or blood [id number] [employer], [address], [address], 4 16:49:43 Referral None recorded. Procedures None recorded. Surgeries None recorded. Imaging None recorded. Medication Orders None recorded. Patient TargetsNo targets recorded. Patient Instructions Encounter Date Encounter Id Patient Instructions Last Modified By Organization Details Last Modified Time 10/04/2023 [id number] Essential hypertension, paroxysmal atrial fibrillation, hypothyroidism, hyperlipidemia [...] recognize, using context, where substitutions have occurred. 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 Will check a [...] recognize, using context, where substitutions have occurred. [email or web address] Not available 12/20/2023 17:07:27 02/09/2024 [id number] Essential hypertension, paroxysmal atrial fibrillation, hypothyroidism and [...] recognize, using context, where substitutions have occurred. Not available 02/09/2024 17:03:21 04/12/2024 [id number] Follow-up essent ial hypertension, hypothyroidism, hyperlipidemia, renal calculi as well as chronic renal failure. All clinically stable. No interval complaints of any new problems at this time. Is otherwise doing fine. Is being followed at [place] for further evaluation of her renal function [...] recognize, using context, where substitutions have occurred. [email or web address] Not available 04/12/2024 15:34:02 08/14/2024 [id number] Follow-up essent ial hypertension, paroxysmal atrial fibrillation, hypothyroidism, hyperlipidemia, chronic renal failure and history of multiple renal calculi in and surgeries in the past. Check blood work consisting of CMP, lipid and thyroid. Continue on current Rx follow-up in four months Follow Up: 4 Months Approximate Date: 12/12/2024 Portions of record are template driven. When necessary additional context will be provided. Additionally some portions have been created with voice recognition software. Occasional wrong-word or s ound-a-like substitutions may have occurred due to the inherent limitations of voice recognition software. Read the chart carefully and recognize, using context, where substitutions may have occurred. Created: Andrés Viveros M.D. 08.14.2024 03:40 PM Not available 08/14/2024 16:40:41 Reason for Referral None Reported. Results Created Date Observation Date Name Description Value Unit Range Abnormal Flag Note LastModifiedBy Organization Detail LastModifiedTime 10/13/1910/13/2023 XR, osseo us surve y, compl ete No observ ation record ed. [address], [address], 10/14/2023 12:21:33 11/10/1911/10/2023 XR, abdom en No observ ation record ed. [address], [address], 11/10/2023 15:10:13 12/02/1912/02/2023 XR, abdom en No observ ation record ed. [address], [address], 12/02/2023 09:36:25 12/03/19 24 12/02/2023 CT, abdom en + pelvi s, w/o contr ast No observ ation record ed. [address], [place], [address], 12/03/2023 17:04:42 12/05/19 24 12/05/2023 XR, chest , 1 view No observ ation record ed. [address], [place], [address], 12/05/2023 06:47:20 12/05/19 24 12/05/2023 NM, lung scan, perfu michelle No observ ation record ed. [address], [place], [address], 12/05/2023 14:23:41 12/06/19 24 12/05/2023 US, echoc ardio gram No observ ation record ed. [address], [place], [address], 12/06/2023 10:13:48 02/10/20 24 02/10/2024 XR, abdom en No observ ation record ed. [address], [place], [address], 02/10/2024 07:46:04 04/20/20 24 04/20/2024 XR, abdom en No observ ation record ed. [id number] Not Available 2023 09:58:33 07/11/19 25 07/11/2024 XR, chest No observ ation record ed. [address], [place], [address], 07/12/2024 09:40:21 07/11/19 25 07/11/2024 CT, abdom en + pelvi s, w/o contr ast No observ ation record ed. [address], [place], [address], 07/12/2024 09:30:39 Result Notes None recorded. 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 Not Available [facility] 3 12:49:35 Acute sinusitis 82063035 Active 2021 Not Available [facility] 3 12:49:35 History of pulmonary embolus 229199095 Active 2018 Not Available [facility] 3 12:49:35 Ventricula r premature beats 00795533 Active Not Available [facility] 3 12:49:35 Transition of care 8652366285267 Active 2021 Not Available [facility] 3 12:49:36 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 Not Available [facility] 3 12:49:36 Gastroesop hageal reflux disease 505949433 Active 2020 Not Available [facility] 3 12:49:36 Renal impairment 065944626 Active 2016 Not Available [facility] 3 12:49:36 Osteoarthr itis of knee 265328274 Active Not Available [facility] 3 12:49:36 Pure hyperchole sterolemia 897758729 Active Not Available [facility] 3 12:49:36 Knee pain Active Not Available [facility] 3 12:49:36 Vitamin D deficiency 53602683 Active 2021 Not Available [facility] 3 12:49:36 Osteoarthr itis 571427372 Active Not Available [facility] 3 12:49:37 Hypothyroi dism 67043207 Active Not Available [facility] 3 12:49:37 Acute urinary tract infection 173238556 Active 2021 Not Available [facility] 3 12:49:37 Hip pain 43385389 Active Not Available [facility] 3 12:49:37 Atrial fibrillati on 04599511 Active Not Available [facility] 3 12:49:37 Carpal tunnel syndrome 64301667 Active Not Available [facility] 3 12:49:37 Pulmonary embolism 86019599 Active Not Available [facility] 3 12:49:37 Essential hypertensi on 81810215 Active Not Available [facility] 3 12:49:38 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 Not Available [facility] 3 12:49:38 Chronic congestive heart failure 01933253 Active 2021 Not Available [facility] 3 12:49:38 Kidney stone 28718408 Active 2021 Not Available [facility] 3 12:49:38 Hyperlipid emia 18786394 Active 2022 RICKEY Mckeon, [place] [facility] 3 16:53:48 Calculus of kidney and ureter 555462914 Active 2022 Andrés Viveros MD [address], [place], [address] , [place] [facility] 3 11:26:58 Chronic renal failure 26070774 Active 2022 Queta moya, [place] [facility] 3 16:19:01 Serum creatinine above reference range 521832728 Active 2022 Queta moya, [place] [facility] 3 11:30:38 Diverticul itis 360173328 Active 2022 Andrés Viveros MD [address], [address], [place], [address] , [facility] 3 12:09:47 Fatigue 38956932 Active 2023 Andrés Viveros MD [address], [place], [address] , [place] [facility] 4 17:00:20 Anemia 733140019 Active 2023 Andrés Viveros MD [address], [place], [address] , [facility] 17:07:12 Problem Notes None recorded. Procedures Surgical History None recorded. Imaging Results Imaging Date Name Status LastModified by Organization Details LastModified Time 10/13/2023 XR, osseous survey, complete completed [address] [address], [place], [address], 10/14/2023 12:21:33 11/10/2023 XR, abdomen completed [address] [address], [place], [address], 11/10/2023 15:10:13 12/02/2023 XR, abdomen completed [address] [address], [place], [address], 12/02/2023 09:36:25 12/02/2023 CT, abdomen + pelvis, w/o contrast completed [address] [address], [place], [address], 12/03/2023 17:04:42 12/05/2023 XR, chest, 1 view completed [address] [address], [place], [address], 12/05/2023 06:47:20 12/05/2023 NM, lung scan, perfusion completed [address], [address], 12/05/2023 14:23:41 12/05/2023 US, echocardiogram completed [address], [address], 12/06/2023 10:13:48 02/10/2024 XR, abdomen completed [address], [address], 02/10/2024 07:46:04 04/20/2024 XR, abdomen [email or web address] Information n ot available 04/20/2024 09:58:33 07/11/2024 XR, chest completed [address] [facility] [address], [place], [address], 07/12/2024 09:40:21 07/11/2024 CT, abdomen + pelvis, w/o contrast completed [address], [place], [address], 07/12/2024 09:30:39 Procedure Notes None recorded. Medical Equipment None Reported. Allergies Allergen ID Allergen Name Allergen Category Reaction Reaction Severity Criticality Documentation Date Start Date Code Code System Note Provider Name and Address Organization Details Recorded Time 51785 Lovenox medicatio n Not available Not available Not available 08/04/2022 55740 6 RxNorm Throm bocyt openi a Not Available [facility] 3 12:56:18 00399 heparin medicatio n Not available Not available Not available 08/04/2022 5224 RxNorm Throm bocyt openi a Not Available [facility] 3 12:56:18 62017 codeine medicatio n nausea Not available Not available 08/04/2022 2670 RxNorm Not Available [facility] 3 12:56:18 Medications Name Sig Start Date [...] completed Not Available Not Available Not Available azithromyci n 250 mg tablet TAKE 2 [...] Take 1 tablet by mouth once daily 2024 active Not Available Not Available Not Avai lable hydrocodone 7.5 mg-acetamin ophen 325 mg tablet One every six hours PRN for pain active Not Available Not Available No t Available Lasix 20 mg tablet Take 1 tablet every day by oral route. 08/06 completed Not Available Not Available Not Available cephalexin 500 mg capsule TAKE 1 CAPSULE BY MOUTH EVERY 8 HOURS 08/14 completed Not Available Not Available Not Available pantoprazol e 40 mg tablet,swetha yed [...] 1 CAPSULE BY MOUTH EVERY 12 HOURS FOR 7 DAYS 08/14 completed Not Available Not Available Not Available [...] completed Not Available Not Available Not Available FeroSul 325 mg (65 mg iron) tablet TAKE 1 TABLET BY MOUTH TWICE DAILY active Not Available Not Available No t Available Vitamin D2 2000 IU daily 2012 [...] Updated DateTime 4 157.48 cm 25.6 kg/m2 78058.9 3 g 61 /min 97.3 [degF] 99 % 99 % 128 mm[Hg] 82 mm[Hg] CLAUDIA Doty [place] [facility] [employer] [facility] 4 15:13:02 Date Recorded Body height Body mass index (BMI) Body weight Heart rate Body temperature Oxygen saturation Oxygen saturation in Arterial blood by Pulse oximetry Systolic blood pressure Diastolic blood pressure Provider Name and Address Organization Details Last Updated DateTime 4 157.48 cm 24.3 kg/m2 77793.7 9 g 59 /min 97 [degF] 99 % 99 % 108 mm[Hg] 62 mm[Hg] Queta Gonzalesyongmayra [facility] [employer] [facility] 4 16:45:00 Date Recorded Body height Body mass index (BMI) Body weight Heart rate Body temperature Oxygen saturation Oxygen saturation in Arterial blood by Pulse oximetry Systolic blood pressure Diastolic blood pressure Provider Name and Address Organization Details Last Updated DateTime 4 157.48 cm 23.8 kg/m2 79301.0 1 g 62 /min 97.5 [degF] 97 % 97 % 118 mm[Hg] 86 mm[Hg] CLAUDIA Doty [facility] [email or web address] [facility] 4 16:35:20 Date Recorded Body height Body mass index (BMI) Body weight Heart rate Body temperature Oxygen saturation Oxygen saturation in Arterial blood by Pulse oximetry Systolic blood pressure Diastolic blood pressure Provider Name and Address Organization Details Last Updated DateTime 4 157.48 cm 23.2 kg/m2 04695.2 3 g 79 /min 97 [degF] 69 % 69 % 120 mm[Hg] 86 mm[Hg] CLAUDIA Doty [facility] [email or web address] [facility] 4 15:11:48 Date Recorded Body height Body mass index (BMI) Body weight Heart rate Body temperature Oxygen saturation Oxygen saturation in Arterial blood by Pulse oximetry Systolic blood pressure Diastolic blood pressure Provider Name and Address Organization Details Last Updated DateTime 5 157.48 cm 23 kg/m2 46864.6 4 g 52 /min 97 [degF] 99 % 99 % 124 mm[Hg] 72 mm[Hg] Queta Janetkari [facility] [email or web address] [facility] 5 16:15:19 Social History Question Answer Notes LastModified by Organizat ion Details LastModified Time Are You Blind Or Do You Have Difficulty Seeing? No [id number].[id number] Information not available 08/04/2022 In The 14 Days Before Symptom Onset, Have You Had Close Contact With A Laboratory-confirme d COVID-19 While That Case Was Ill? No MIGRATION.[id number] 26 Information not available 08/04/2022 In The 14 Days Before Symptom Onset, Have You Had Close Contact With A Person Who Is Under Investigation For COVID-19 While That Person Was Ill? No MIGRATION.[id number] 26 Information not available 08/04/2022 Are You Deaf Or Do You Have Serious Difficulty Hearing? No MIGRATION.[id number] 26 Information not available 08/04/2022 Have You Recently Traveled Abroad? No MIGRATION.[id number] 26 Information not available 08/04/2022 Sex: Unknown Functional Status Question Answer Note LastModified by Organizat ion Details LastModified Time Do you have difficulty walking or climbing stairs? No MIGRATION.[id number] 026 Information not available 08/04/2022 Do you have transportation difficulties? No MIGRATION.[id number] 026 Information not available 08/04/2022 Are you able to walk? YESWOREST MIGRATION.[id number] 026 Information not available 08/04/2022 Do you have difficulty doing errands alone? No MIGRATION.2662027 026 Information not available 08/04/2022 Are you able to care for yourself? Yes MIGRATION.4330283 026 Information not available 08/04/2022 Do you have difficulty dressing or bathing? No MIGRATION.7485705 026 Information not available 08/04/2022 Mental Status Question Answer Note LastModified by Organizat ion Details LastModified Time Do you have difficulty concentrating, remembering or making decisions? No MIGRATION.[id number] 6 Information not available 08/04/2022 Family History [...] HEARING PROBLEMS N MUMPS N SHINGLES N DEPRESSION (INCLUDING POST ) N BOWEL PROBLEMS N STROKE/TIA N ULCERS N BENIGN PROSTATIC HYPERPLASIA N MEASLES N HYPOTENSION N MYOCARDIAL INFARCTION N OBESITY N GERD/NAUSEA N ANEURYSM N URINARY/BLADDER/KIDNEY PROBLEMS N CORONARY ARTERY DISEASE (CAD) N ADDICTION CONCERNS N Impotence N ENDOMETRIOSIS N USE OF BLOOD THINNERS N SKIN [...] GLAUCOMA N FOOT PROBLEM N DIVERTICULITIS N SLEEP APNEA N CHICKENPOX N INFECTIOUS DISEASE N PROSTATE N HEART ARRHYTHMIA N INSOMNIA N HIGH CHOLESTEROL / HYPERLIPIDEMIA Y EYE PROBLEMS N HYPERTHYROIDISM N EDEMA N CHRONIC PAIN SYNDROME N HYPOTHYROIDISM Y CAROTID BLOCKAGE N CONSTIPATION N BACK / NECK PROBLEMS N HAVE YOU BEEN HOSPITALIZED OR SEEN IN [facility] IN THE PAST YEAR ? N ATHEROSCLEROSIS N BREAST PROBLEMS N DIALYSIS N ECZEMA N OSTEOPOROSIS N ARTHRITIS N NO SIGNIFICANT PAST MEDICAL HISTORY N APPENDICITIS N DIABETES, TYPE N BAD TEETH N ENT N HEARTBURN / REFLUX N AFIB N AUTISM SPECTRUM DISORDER (ASD) N HEPATITIS / LIVER DISEASE N GOUT N SLEEP DISORDER N ALZHEIMER'S DISEASE N Brain Problems N DEMENTIA N HERPES N SEIZURES/EPILEPSY N HEADACHES/MIGRAINES N VASCULAR DISEASE N PACEMAKER N Blood Disorder N DIZZINESS N HEART DISEASE/HEART PROBLEMS N KIDNEY DISEASE N MULTIPLE SCLEROSIS N CANCER: SPECIFY N CARDIAC ARRHYTHMIA N ATRIAL FIBRILLATION N Gall Stones N PULMONARY EMBOLISM Y AUTOIMMUNE DISEASE N Gynecological HistoryNo gynecological history recorded. Obstetrics History GPAL:G 0 P 0 0 0 0 Immunizations Vaccine Type Date Status Note Provider Nam e and Address Organization Details Recorded Time Influenza, high-dose, quadrivalent, PF 3 completed Andrés Viveros MD [address] [place] [address], [phone], [facility] [employer] 04/05/2023 16:20:01 Influenza, split virus, trivalent, preservative 3 completed Not Available [facility] 08/04/2022 12:56:07 SARS-COV-2 (COVID-19) vaccine, UNSPECIFIED 2 completed Not Available [facility] 08/04/2022 12:56:07 influenza, unspecified formulation 2 completed Not Available [facility] 08/04/2022 12:56:07 SARS-COV-2 (COVID-19) vaccine, UNSPECIFIED 2 completed Not Available [facility] 08/04/2022 12:56:07 Influenza, split virus, quadrivalent, preservative 1 completed [facility] Available [facility] 08/04/2022 12:56:07 COVID-19, mRNA, LNP-S, PF, 100 mcg/0.5mL dose or 50 mcg/0.25mL dose 1 completed Not Available [facility] 08/04/2022 12:56:07 SARS-COV-2 (COVID-19) vaccine, UNSPECIFIED 1 completed Not Available [facility] 08/04/2022 12:56:08 COVID-19, mRNA, LNP-S, PF, 30 mcg/0.3 mL dose 1 completed Not Available [facility] 08/04/2022 12:56:08 Influenza, high-dose, quadrivalent, PF 0 completed Not Available [facility] 08/04/2022 12:56:08 Influenza, high-dose, trivalent, PF 8 completed Not Available [facility] 08/04/2022 12:56:08 Influenza, high-dose, trivalent, PF 7 completed Not Available [facility] 08/04/2022 12:56:08 Pneumococcal conjugate PCV 13 5 completed Not Available [facility] 08/04/2022 12:56:09 Influenza, split virus, quadrivalent, preservative 5 completed Not Available [facility] 08/04/2022 12:56:09 Past Encounters Encounter ID Performer Location Encounter Start Date Encounter Closed Date Diagnosis/Indication Diagnosis SNOMED-CT Code Diagnosis ICD10 Code Diagnosis Note [id number] [facility] [place] [facility] [place] [facility] [id number] [place] [address] 09/19/2020 00:00:00 09/19/2020 15:10:48 [id number] [facility] [place] [facility] [id number] [place] [address] 10/17/2020 00:00:00 10/17/2020 11:40:53 [id number] [facility] [place] [address] [place] [address] y , [place] [address] 02/13/2021 00:00:00 02/13/2021 15:44:15 [id number] [facility] [place] [address] [place] [address] y , [place] [address] 06/09/2021 00:00:00 06/09/2021 16:59:09 [id number] [facility] [place] [address] [place] [address] y , [place] [address] 08/18/2021 00:00:00 08/18/2021 15:57:20 [id number] [facility] [place] [address] [place] [address] y , [place] [address] 09/01/2021 00:00:00 09/01/2021 14:33:36 [id number] [facility] Internal [facility] [place] [address] [place] [address] y , [place] [address] 10/06/2021 00:00:00 10/06/2021 12:10:21 [id number] [facility] Internal [facility] [place] [address] [place] [address] y , [place] [address] 02/09/2022 00:00:00 02/09/2022 11:59:16 [id number] [facility] Internal [facility] [place] [address] [place] [address] y , [place] [address] 06/08/2022 00:00:00 06/08/2022 12:06:16 [id number] Andrés Viveros MD [facility] Internal [facility] [place] [address] [place] [address] y , [place] [address] 08/06/2022 10:58:58 08/06/2022 11:36:23 Atrial fibrillation 75541571 I48.91 Pure hypercholesterolemia 032251129 E78.00 Essential hypertension 41996961 I10 Calculus o f kidney and ureter 810628508 N20.2 [id number] Andrés Viveros MD [facility] Internal [facility] [place] [address] [place] [address] [place] [address] 09/28/2022 14:26:32 09/28/2022 14:58:34 Essential hypertension 70534965 I10 Atrial fibrillation 4943 6004 I48.91 Hyperlipidemia 51788942 E78.5 Hypothyroidism 67755368 E03.9 [id number] Andrés Viveros MD [facility] Internal Med [place] [address] [place] [address] [place] [address] 11/30/2022 14:33:09 11/30/2022 15:13:35 Essential hypertension 09787942 I10 Atrial fibrillation 4943 6004 I48.91 Hyperlipidemia 21667295 E78.5 Hypothyroidism 93331201 E03.9 [id number] Andrés Viveros MD [facility] Internal Med [place] [address] [place] [address] [place] [address] 04/05/2023 15:24:54 04/05/2023 16:29:17 Administration of influenza vaccine 57171672 Z23 Atrial fibrillation 4943 6004 I48.91 Essential hypertension 76248612 I10 Hypothyroidism 38744709 E03.9 Hyperlipidemia 25258608 E78.5 Vitamin D deficiency 347 80414 E55.9 [id number] Andrés Viveros MD [facility] Internal Med [facility] [address] [facility] [address] [place] [address] 05/19/2023 11:06:09 05/19/2023 12:17:21 Essential hypertension 83976554 I10 Atrial fibrillation 4943 6004 I48.91 Pure hypercholesterolemia 884962341 E78.00 Diverticulitis 400672489 K57.92 Kidney stone 71068652 N2 0.0 [id number] Andrés Viveros MD [facility] Internal Med [place] [address] [place] [address] [place] [address] 10/04/2023 15:02:42 10/04/2023 15:54:43 Atrial fibrillation 24326450 I48.91 Chronic renal failure 90 601410 N18.9 Essential hypertension 64221841 I10 Hypothyroidism 81140247 E03.9 Hyperlipidemia 74341033 E78.5 [id number] Andrés Viveros MD [facility] [place] [address] [place] [address] y , [place] [address] 12/20/2023 16:35:50 12/20/2023 17:11:28 Fatigue 25907758 R53.83 Essential hypertension 66194586 I10 Atrial fibrillation 4943 6004 I48.91 Hypothyroidism 91998088 E03.9 Hyperlipidemia 94089332 E78.5 Kidney stone 01061927 N2 0.0 Anemia 272161588 D64.9 [id number] Andrés Viveros MD [facility] [place] [facility] [address] [place] [address] y , [place] [address] 02/09/2024 16:15:53 02/09/2024 17:08:26 Atrial fibrillation 69450148 I48.91 Essential hypertension 48701359 I10 Hypothyroidism 67049272 E03.9 Kidney stone 07869552 N2 0.0 [id number] Andrés Viveros MD [facility] [address] [place] [address] [place] [address] 04/12/2024 14:58:58 04/12/2024 16:01:54 Essential hypertension 61702622 I10 Hypothyroidism 65749160 E03.9 Hyperlipidemia 36589587 E78.5 Kidney stone 59711066 N2 0.0 Chronic renal failure 90 733057 N18.9 [id number] Andrés Viveros MD [facility] [place] [facility] [address] [facility] [address] [place] [address] 08/14/2024 15:45:28 08/14/2024 16:46:50 Essential hypertension 78783350 I10 Atrial fibrillation 4943 6004 I48.91 Hypothyroidism 88174575 E03.9 Pure hypercholesterolemia 350306229 E78.00 Chronic renal failure 90 029971 N18.9 Kidney stone 23741403 N2 0.0 Health Concerns Section Related Observation LastModified by Organization Detai ls LastModified Time None Recorded Concern Status LastModified by Organization Details LastModified Time None Recorded Advance Directives Directive None Recorded Payers Encounter Date Sequence Insurance Name Policy Number Policy Patel Covered Member ID Patel Member ID Guarantor Name 10/04/2023 1 [employer] (MEDICARE REPLACEMENT PPO) [id number] Nelia Peterson [id number] Nelia Peterson 12/20/2023 1 [employer] (MEDICARE REPLACEMENT PPO) [id number] Nelia Peterson [id number] Nelia Peterson 02/09/2024 1 [employer] (MEDICARE REPLACEMENT PPO) [id number] Nelia Peterson [id number] Nelia Peterson 04/12/2024 1 AETNA (MEDICARE REPLACEMENT PPO) [id number] Nelia Peterson [id number] Nelia Peterson 08/14/2024 1 [employer] (MEDICARE REPLACEMENT PPO) [id number] Nelia Peterson [id number] Nelia Peterson Notes Date Note Type Note Provider Name and Address Organization Details Recorded Time text/html Patient Name: Nelia PetersonDate Of Service: Tuesday ( 10.04.2023 ): 1935 [...] Systemic Symptoms:none Medication Reconciliation: from medication list. Uczuwqyhhom39-38-1401: CT cervical spine from demonstrates severe cervical [...] Sotalol Hydrochloride. Rate control: controlled ventricular response [id number] Criteria: hypertension, Age > 75 and and considered moderate risk for embolic phenomenon. Anticoagulation: Eliquis #4. Hx of hypothyroidism currently stable. Heat intolerance: no Fatigue: no Weight gain: no Difficulty concentrating: no Muscle Symptoms: none Skin Texture: normal Skin Color: normal Currently taking synthroid. #5. History of chronic renal failure currently doing well. 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 Stage: CKD-3b. Albumin Stage: A1. 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 Mzurtlyuipv66-08-7790: CT cervical spine from demonstrates severe cervical [...] > 75 and and considered moderate risk [id number] Criteria: Eliquis for embolic phenomenon. 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 Ldhtimxbbnv12-33-8758: CT cervical spine from demonstrates severe cervical [...] Sotalol Hydrochloride. Rate control: controlled ventricular response [id number] Criteria: Age > 75 for embolic phenomenon. 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 Saoqieisegu08-21-8173: CT cervical spine from demonstrates severe cervical [...] doing well. 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 Stage: CKD-3b. Albumin Stage: A1. 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 Arm 124/72Pulse: Sitting 52 /min and RegularRespiratory Rate: 16Height 62 in or 1.6 mWeight 126 lb or 57.2 kgBMI 23.0Temperature: 97 F or 36.1 CPulse Oximetry: 99 % at rest on no oxygen Chief Complaint: Addressed in HPI Problems or conditions discussed in the HPI were the only ones reviewed during the encounter.Only social and family history addressed in the HPI were reviewed during this encounter. Attendant(s): CaregiverConstitutional and Systemic Symptoms:none Medication Reconciliation: from medication list. Iuwlxspopmp69-56-1685: CT cervical spine from demonstrates severe cervical [...] normal. Left atrial dimension is severely enlarged. 07-04-2024: CT scan of the abdomen and pelvis multiple calcified granulomas Are noted in the lung bases. Punctate calcification is noted in the hepatic parenchyma. Gallbladder and biliary system normal. Evaluation of the pancreas suboptimal because of no contrast. Spleen multiple punctate calcification. Milla global enlargement of left kidney identified with hydronephrosis with the upper pole. History of Present Illness #1. Essential Hypertension: [...] of hypertension and includes salt restriction and Midodrine Hcl and Sotalol Hydrochloride. #2. Atrial Fibrillation: Type: Persistent with recurrent episodes lasting longer than 7 days. Further classification: Non-valvular. Associated history of HTN and congestive heart failure. No attending hx of any shortness of breath, palpitations, syncopal or neurological symptoms. Current medications: Sotalol Hydrochloride. Rate control: controlled ventricular response [id number] Criteria: hypertension, Age > 75 and and considered moderate risk for embolic phenomenon. Anticoagulation: Eliquis #3. Hx of hypothyroidism currently stable. Heat intolerance: no Fatigue: no Weight gain: no Difficulty concentrating: no Muscle Symptoms: none Skin Texture: normal Skin Color: normal Currently taking synthroid. #4. Type II Hypercholesterolaemia: Currently taking medication and tolerating well. No interval complaints of any muscle pain or arthralgia. No significant liver changes with medications. Last lipid panel: fair control. Therapy reviewed regarding treatment of cholesterol management and include diet and Pravachol. #5. History of chronic renal failure currently doing well. 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 Stage: CKD-3b. Albumin Stage: A1. There has been no change in urine output or color. No fever or chills. #6. Renal Calculi: History of bilateral renal calculi. 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
--- OUTSIDE RECORDS SUMMARY | 2024-08-20 12:40 | XMS_ITS | Clinical Summary ---
Author Organization [facility] Address [address] [place] [address] Care Team Providers Care Child Care Worker Name Role Phone Andrés Viveros MD Primary Care Provider Allergies Active Allergy Reactions Criticality Noted Date Comments Codeine Nausea only Low Heparin Propofol Unknown Medications levothyroxine (SYNTHROID) 50 mcg tablet take 1 Tablet (50MCG) by oral route every day 0 2 Active pravastatin (PRAVACHOL) 80 mg tablet take 1 tablet by oral route every day 90 3 5 Active cholecalciferol (VITAMIN D-3) 2,000 unit tablet 0.025 tablets (50 Units total) Active buPROPion SR (WELLBUTRIN SR) 150 mg 12 hr tablet 0 Active ferrous sulfate 325 mg (65 mg of elemental iron) tabletIndicatio ns:Iron Deficiency Anemia Take 1 tablet (325 mg total) by mouth daily with breakfast Active traMADoL (ULTRAM) 50 mg tablet Take 1 tablet (50 mg total) by mouth every 6 (six) hours as needed for pain Active Eliquis 2.5 mg tablet Take 1 tablet (2.5 mg total) by mouth 2 (two) times a day 3 Active sotaloL (BETAPACE) 80 mg tablet Take 1/2 (one-half) tablet by mouth once daily 45 tablet 1 5 Active Hospital, Clinic, or Other Facility Administered Medication [...] thrombocytopenia 03/16/2024 Sick sinus syndrome due to sinoatrial node dysfu nction 10/11/2022 Cardiac pacemaker in situ 09/20/2022 Overview (09/20/2022): Medtronic Micra AV Dual Leadless Pacemaker. Dx; Jered/Tachy, PAF. DOI 09/20/2022-F[employer]ner. [facility]. [facility] remote monitoring. 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 Cardiology [address] [place] [address] Zachary uKmar MD from Last 3 Months Surgical History Surgery Date Site/Laterality Comments ANGIO SELECTIVE CAROTID EYELET MACHINE OPERATOR RIGHT 02/28/2020 Right INSERT / REPLACE / REMOVE PACEMAKER Medical History Medical History Date Comments Hx Other Medical PVCs, and dysli pidemia, history of SVT, hypothyro Hypertension Atrial fibrillation (HCC) SSS (sick sinus syndrome) (HCC) CKD (chronic kidney disease) SSS (sick sinus syndrome) (HCC) Cerebral aneurysm coiled DVT (deep venous thrombosis) (HCC) Social History Tobacco Use Types Packs/Day Years Used Date Smoking Tobacco: Former Cigarettes Q uit: 03/18/1980 Smokeless Tobacco: Never Tobacco Cessation:Counseling Given: Not Answered Alcohol Use Standard Drinks/Week Comments Yes 7 (1 standard drink = 0.6 oz pur e alcohol) Comments Unknown Sex and Gender Information Value Date Recorded Sex Assigned at Not on file Legal Sex Female 6:09 AM ASSOCIATE PROGRAM MANAGER Gender Identity Not on file Sexual Orientation Not on file Obstetrics History Last Filed Vital Signs Vital Sign Reading Time Taken Comments Blood Pressure 175/133 05/08/2024 1:42 PM ASSOCIATE PROGRAM MANAGER Pulse 68 05/08/2024 1:42 PM ASSOCIATE PROGRAM MANAGER Temperature 36.5 C (97.7 F) 02/28/2020 11:31 AM CDT Respiratory Rate 18 01/11/2023 10:38 AM CDT Oxygen Saturation 99% 05/08/2024 1:42 PM ASSOCIATE PROGRAM MANAGER Inhaled Oxygen Concentration - - Weight 59 kg (130 lb) 05/08/2024 1:42 PM ASSOCIATE PROGRAM MANAGER Height 162.6 cm (5' 4 ) 05/08/2024 1:42 PM ASSOCIATE PROGRAM MANAGER Body Mass Index 22.31 05/08/2024 1:42 PM ASSOCIATE PROGRAM MANAGER Plan of Treatment Health Maintenance Due Date Last Done Comments Depression Screening 1935 DTaP/Tdap/Td Vaccine (1 - Tdap) 08/16/1947 Hepatitis B Screening 1953 Zoster Vaccine (1 of 2) 08/16/1955 Well Visit 65+ 2001 Pneumococcal vaccine 65+ (2 of 2 - PPSV23) 11/15/2014 09/20/2014 Fall Risk Assessment 02/27/2021 02/28/2020, 11/09/19 20 Influenza Vaccine (#1) 2024 2, 05/16/2021, 03/21/2018, Additional history exists Medical Devices Implanted Type Area Abrasive Grader Device Identifier Shelf Expiration Date Model / Serial / Lot ProspectWise [id number] Device Closure Angio-Seal Vip Bondek-Plus Polyglyd L70 Cm Od6 Fr Odsec.035 In Vascular - [id number] Implanted:Qty: 1 on 02/28/2020 at [facility] 10/03/2020 [id number] / / [id number] Insurance AET MEDICARE AETNA MEDICARE Advance Directives For more information, please contact: [phone] * Full Code (Latest Code Status on File) Date Activated Date Inactivated Comments 02/28/2020 11:26 AM 02/28/2020 5:54 PM Care Teams Child Care Worker Relationship Specialty Start Date End Date Andrés Viveros MD PCP - General 03/17/17
--- OUTSIDE RECORDS SUMMARY | 2024-08-20 12:40 | XMS_ITS ---
Author Organization [facility] Address [address] [place] [address] Care Team Providers Care Him Coder Name Role Phone Andrés Viveros MD Primary [...] Overview (09/08/2016): PVC (premature ventricular contraction) Current Treatment and Therapy Plans No current plan information found. Past Treatment and Therapy Plans No past plan information found. Lifetime Dose Tracking * Chemical Lifetime Dose Automatic Entry Manual Entr y Fluoro Time 11.7 minutes 11.7 minutes 0 minutes Air kerma at the reference point (Ka,r) 770.1 mGy 7 70.1 mGy 0 mGy
--- OUTSIDE RECORDS SUMMARY | 2024-08-20 12:40 | XMS_ITS | Referral Summary ---
Author Organization [facility] Address [address] [place] [address] Care Team Providers Care Sample Supervisor Name Role Phone Andrés Viveros MD Primary Care Provider Encounters Date Type Department Care Team Description 08/02/2024 Telephone [facility] Cardiology [address] [place] [address] Zachary Kumar MD from Last 3 [...] Pacemaker. Dx; Jered/Tachy, PAF. DOI 09/20/2022-F[facility]issner. [facility]. [facility]. Nonrheumatic mitral valve regurgitation 05/21/20 [...] on file Legal Sex Female 6:09 AM HYDRAULIC JACK OPERATOR Gender Identity Not on file Sexual Orientation Not on file Last Filed Vital Signs Vital Sign Reading Time Taken Comments Blood Pressure 175/133 05/08/2024 1:42 PM HYDRAULIC JACK OPERATOR Pulse 68 05/08/2024 1:42 PM HYDRAULIC JACK OPERATOR Temperature 36.5 C (97.7 F) 02/28/2020 11:31 AM CDT Respiratory Rate 18 01/11/2023 10:38 AM CDT Oxygen Saturation 99% 05/08/2024 1:42 PM HYDRAULIC JACK OPERATOR Inhaled Oxygen Concentration - - Weight 59 kg (130 lb) 05/08/2024 1:42 PM HYDRAULIC JACK OPERATOR Height 162.6 cm (5' 4 ) 05/08/2024 1:42 PM HYDRAULIC JACK OPERATOR Body Mass Index 22.31 05/08/2024 1:42 PM HYDRAULIC JACK OPERATOR Plan of Treatment Not on file Medical Devices Implanted Type Area Claim Review Medical Director Device Identifier Shelf Expiration Date Model / Serial / Lot [employer] [id number] Device Closure Angio-Seal Vip Bondek-Plus Polyglyd L70 Cm Od6 Fr Odsec.035 In Vascular - [id number] Implanted:Qty: 1 on 02/28/2020 at [facility] 10/03/2020 [id number] / / [id number] Insurance [facility] MEDICARE AETNA MEDICARE AETNA MEDICARE Advance Directives For more information, please contact: [phone] * Full Code (Latest Code Status on File) Date Activated Date Inactivated Comments 02/28/2020 11:26 AM 02/28/2020 5:54 PM Care Teams Sample Supervisor Relationship Specialty Start Date End Date Andrés Viveros MD PCP - General 03/17/17
--- OUTSIDE RECORDS SUMMARY | 2024-08-20 12:40 | XMS_ITS | CONTINUITY OF CARE DOCUMENT ---
Author Name benson knowles Address Unknown Organization [facility] Address [address] [place] [address] [address] [place] [address] Phone [phone] Care Team Providers Care Stone Belt Sander Name Role Phone Yakov REES, Graciela Unavailable [phone] INSURANCE PROVIDERS Payer name Policy type / Coverage type [place] red republican ID [employer] OPEN ACCESS Other [id number] [place] MED[place] Medicare [id number]
--- OUTSIDE RECORDS SUMMARY | 2024-08-20 12:41 | XMS_ITS | Encounter Summary ---
Author Organization [facility] Address [address] [place] [address] Care Team Providers Care Sales Enablement Manager Name Role Phone Chris Styles Primary Care Provider Peggy e Encounter Details Date Type Department Care Team (Late st Contact Info) Description 01/29/2021 Lab Requisition [facility] [address] [place] [address] Jordan Lewis MD [address] [place] [address] Social History Tobacco Use Types [...] AM CDT) Case Report Dermatopathology Report Case: [id number] Authorizing Provider: Jordan Lewis MD Collected: 01/28/2021 12:00 AM Ordering Location: [facility] Received: 01/29/2021 10:59 AM Pathologist: [...] characteristic determined by the Dermatopathology Laboratory at [facility], directed by Dr. Freya Harris. These tests need not be, and therefore are not, approved by the [place] Food and Drug Administration. The tests are used for clinical purposes. Billing Codes Specimen Charges Stain Charges 82237 35127 1 1 1 2:55 PM CDT DERMATOPATHOLOGY LABORATORY Embedded Images 2:55 PM CDT DERMATOPATHOLOGY LABORATORY Pathology/Cytology TISSUE SPECIMEN FROM SKIN / Unknown 01/28/2021 01/29/2021 10:59 AM CDT Miscellaneous samples (specimen) TISSUE SPECIMEN FROM SKIN / Unknown 01/28/2021 01/29/2021 10:59 AM CDT Jordan Lewis MD LAB - PATHOLOGY/CYTO LOGY ORDERABLES DERMATOPATHOLOGY LABORATORY [facility] - Department of Dermatology [facility] Specialized Medicine [address] [place] [address], [address] [phone] documented in this encounter Visit Diagnoses Not on filedocumented in this encounter Care Teams Sales Enablement Manager Relationship Specialty Start Date End Date Chris Styles Update Information PCP - General 11/27/19 documented as of this encounter
--- OUTSIDE RECORDS SUMMARY | 2024-08-20 12:41 | XMS_ITS | Patient Health Summary ---
Author Organization [facility] Address [address] [place] [address] Care Team Providers Care Sample Tailor Name Role Phone Chris Styles Primary Care Provider Peggy e Note from [facility],non-owned Affiliates and Associated Physician Practices is amultiple site organization consisting of ambulatory clinics and hospital sitesin [place], [place], [place] and [place]. This disclosure is being madepursuant to the Care Everywhere program and may not contain all information available regarding this patient. Last updated 18.[facility] Social History Tobacco Use Types Packs/Day Years [...] is included. Case Report Dermatopathology Report Case: [id number] Authorizing Provider: Jordan Lewis MD Collected: 09/29/2021 12:00 AM Ordering Location: [facility] Lab Received: 09/30/2021 02:16 [...] specimen consists of a shave biopsy measuring [id number]. The specimen is inked and bisected. Jar [...] characteristic determined by the Dermatopathology Laboratory at [facility], directed by Dr. Freya Harris. These tests need not be, and therefore are not, approved by the [place] Food and Drug Administration. The tests are used for clinical purposes. Billing Codes Specimen Charges Stain Charges 76852 1 1:36 PM CDT DERMATOPATHOLOGY LABORATORY Embedded Images 1:36 PM CDT DERMATOPATHOLOGY LABORATORY Pathology/Cytolog y TISSUE SPECIMEN FROM SKIN / Unknown 09/29/2021 09/30/2021 2:16 PM CDT Jordan Lewis MD LAB - PATHOLOGY/CYTO LOGY ORDERABLES DERMATOPATHOLOGY LABORATORY [facility] - Department of Dermatology [facility] Specialized Medicine [address] [place] [address], [address] [phone] Care Teams Sample Tailor Relationship Specialty Start Date End Date Chris Styles Update Information PCP - General 11/27/19
--- OUTSIDE RECORDS SUMMARY | 2024-08-20 12:41 | XMS_ITS | Encounter Summary ---
Author Organization [facility] Address [address] [place] [address] Care Team Providers Care Business Continuity Director Name Role Phone Chris Styles Primary Care Provider Unavailannika e Encounter Details Date Type Department Care Team (Late st Contact Info) Description 09/30/2021 Lab Requisition [facility] [address] [place] [address] Jordan Lewis MD [address] [place] [address] Social History Tobacco Use Types [...] AM CDT) Case Report Dermatopathology Report Case: [id number] Authorizing Provider: Jordan Lewis MD Collected: 09/29/2021 12:00 AM Ordering Location: [facility] Received: 09/30/2021 02:16 PM [...] specimen consists of a shave biopsy measuring [id number]. The specimen is inked and bisected. Jar [...] characteristic determined by the Dermatopathology Laboratory at [facility], directed by Dr. Freya Harris. These tests need not be, and therefore are not, approved by the [place] Food and Drug Administration. The tests are used for clinical purposes. Billing Codes Specimen Charges Stain Charges 30187 1 2 1:36 PM CDT DERMATOPATHOLOGY LABORATORY Embedded Images 1:36 PM CDT DERMATOPATHOLOGY LABORATORY Pathology/Cytolog y TISSUE SPECIMEN FROM SKIN / Unknown 09/29/2021 09/30/2021 2:16 PM CDT Jordan Lewis MD LAB - PATHOLOGY/CYTO LOGY ORDERABLES DERMATOPATHOLOGY LABORATORY [facility] - Department of Dermatology [address], [address] [phone] documented in this encounter Visit Diagnoses Not on filedocumented in this encounter Care Teams Business Continuity Director Relationship Specialty Start Date End Date Chris Styles Update Information PCP - General 11/27/19 documented as of this encounter
--- OUTSIDE RECORDS SUMMARY | 2024-08-20 12:41 | XMS_ITS | Clinical Summary ---
Author Organization [facility] Address [address] [place] [address] Care Team Providers Care Paediatric Surgeon Name Role Phone Chris Styles Primary Care Provider Peggy e Source Comments [facility],non-owned Affiliates and Associated Physician Practices is amultiple site organization consisting of ambulatory clinics and hospital sitesin [place], [place], [place] and [place]. This disclosure is being madepursuant to the Care Everywhere program and may not contain all information available regarding this patient. Last updated 18.[facility] Geno Social History Tobacco Use Types Packs/Day Years [...] to complete this topic MENINGOCOCCAL (Group B) VACC INE SHARED DECISION-MAKING Aged Out No longer eligibl e based on patient's age to complete this topic MENINGOCOCCAL GROUPS A/C/Y/W VACCINE Aged Out No longer eligible b ased on patient's age to complete this topic Care Teams Paediatric Surgeon Relationship Specialty Start Date End Date Chris Styles Update Information PCP - General 11/27/19
--- OUTSIDE RECORDS SUMMARY | 2024-08-20 12:41 | XMS_ITS | Continuity of Care Document ---
Author Organization [facility] Address [address] [place] [address] Insurance Providers Payer Plan Claims Address Claims Phone Policy Number Group Number Relation Employer Guarantor Name Guarantor Guarantor Address Guarantor Phone [facility] [employer] ADV [address] [address], [place] [address] tel:[phone] Self Nelia Peterson [address] [place] [address] [employer] ARE [address], [place] [address] Coverag [id number] Self Nelia Peterson [address] [place] [address] [employer] ACCES S [address], [place] [address] Coverag [id number] Self Nelia Peterson [address] [place] [address] Problems Condition ICD9 code ICD10 code [...]
--- OUTSIDE RECORDS SUMMARY | 2024-08-20 12:41 | XMS_ITS | Referral Summary ---
Author Organization [facility] Address [address] [place] [address] Care Team Providers Care Regular Senior Care Provider Name Role Phone Chris Styles Primary Care Provider Unavailabl e Source Comments [facility],non-owned Affiliates and Associated Physician Practices is amultiple site organization consisting of ambulatory clinics and hospital sitesin [place], [place], [place] and [place]. This disclosure is being madepursuant to the Care Everywhere program and may not contain all information available regarding this patient. Last updated 18.[facility] Social History Tobacco Use Types Packs/Day Years Used Date Smoking Tobacco: Never Assessed Sex and Gender Information Value Date Recorded Sex Assigned at Not on file Gender Identity Not on file Sexual Orientation Not on file Plan of Treatment Not on file Care Teams Regular Senior Care Provider Relationship Specialty Start Date End Date Chris Styles Update Information PCP - General 11/27/19
--- OUTSIDE RECORDS SUMMARY | 2024-08-20 12:42 | XMS_ITS | Clinical Summary ---
Author Organization [facility] Sarah Reeseemma Address [address] [place] [address] Care Team Providers Care Airport Traffic Controller Name Role Phone Andrés Viveros MD Primary Care Provider [phone] Allergies No known active allergies Medications ferrous [...] Encounters Date Type Department Care Team Description 07/24/2024 External Device Data [facility] ABSTRACTION Provider, Abstract 06/28/2024 External Device Data [facility] ABSTRACTION Provider, [...] - 1-dose 75+ series) 08/16/2011 PNEUMOCOCCAL VACCINE 50+ YEA RS (2 of 2 - PPSV23) 11/15/2014 09/20/2014 INFLUENZA VACCINE (#1) 2024 3, 05/16/2021, 04/04/2020, Additional history exists Insurance [employer] PPO MCR Care Teams Airport Traffic Controller Relationship Specialty Start Date End Date Andrés Viveros MD [address] [place] [id number] PCP - General Internal Medicine 08/30/23
--- OUTSIDE RECORDS SUMMARY | 2024-08-20 12:42 | XMS_ITS | Continuity of Care Document ---
Author Organization [facility] Address [address] [facility] [address] [place] [address] Phone Care Team Providers Care Early Years Teacher Name Role Phone Doisy, Edward Unavailable Unavailable Procedures Procedure Date Office/outpatient Visit, Est Visual Functional Status Assessed Advance Directives Directive Yes / No Effective Date File Name No Information Encounters Encounter Description Practice Location Reason(s) For Visit Diagnoses Date Provider Providers Copied on Encounter Office/outpat ient Visit, Est [facility], [address], [place], [place], [id number], [place] tel:[phone] [facility] No Information 8-200 7 Doisy Edward. [address] , [address], [place], [address], [place]. tel:[phone] Referring Provider: Melanie Parra OD, [address] [facility], [place], [address]. tel:[phone] Family History Family Member Type Diagnosis Age At Onset No Information Payers Payer name Insurance type Covered alliance party ID Authoriza tion(s) [place] [id number] Social History Type Description Quantity Date Captured [...]
== END 2024-08-20 10:22 | disposition home or self-care (01) ==
LOC: ANHSURGERY 10:28
PROVIDERS: PCP Internal Medicine; Visit Provider Urology
DX: N13.5 Crossing vessel and stricture of ureter without hydronephrosis (principal)
CPT/HCPCS: 87086

== ENCOUNTER 2024-08-24 00:01 | Day surgery (SDC) | payer MEDICARE, SELFPAY ==
--- NOTE | 2024-07-06 07:35 | PM.HPGS ---
History of Present Illness History of Present Illness Consent: Risks, benefits, and alternatives have been discussed and questions answered. Patient agrees to proceed with procedure. 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 On occasion she has encrustation of the stent that requires ESWL. In November 2023, ESWL led to a perinephric hematoma. She now presents for cystoscopy with left ureteral stent exchange, left ESWL on a short-term interval. Last stent exchange 04/20/2024. Review of Systems Review of Systems: All systems reviewed & are unremarkable except as noted in HPI and below PMFSH Past Medical History Medical History Jered-tachy syndrome Cerebral aneurysm Status post coil embolization. Chronic anemia Chronic kidney disease Current use of [facility] anticoagulation Degenerative disc disease Depression Diastolic congestive heart failure Dyslipidemia Endometriosis Heart failure with preserved ejection fraction EF was 60 to 65% in 07/2021. Hemorrhoids Histoplasmosis Hyperlipidemia Hypertension Hypothyroidism Intraoperative ureteral injury (07/2021) Kidney stones Including known right staghorn calculus. Mild aortic stenosis Mild pulmonary hypertension Mitral regurgitation mod to severe Moderate mitral regurgitation Nonspecific colitis Pacemaker Paroxysmal atrial fibrillation Pulmonary embolism Surgical History Surgical History History of arthroplasty of right knee History of cataract extraction History of colonoscopy with polypectomy History of cystoscopy History of lumbar surgery History of tonsillectomy and adenoidectomy History of total hysterectomy with bilateral salpingo-oophorectomy (BSO) Status post coil embolization of cerebral aneurysm Family History Family History Mother , in her 70s Hypertension Father Hypertension Acute myocardial infarction Social History Social History Social History: Surrogate decision maker: Seth Peterson, son. Code status: Full code. Smoking packs per day: 0.25 Smoking cigarettes per day: 5.0 Years smoked: 15 Smoking pack-years: 3.75 Smoking status: Former smoker Tobacco type: cigarettes Second hand tobacco smoke exposure: No Smoking end date: 06/06/74 Alcohol intake: current Drinks per week: 1 Alcohol use details: 6 oz of wine. Substance use: never Substance use type: does not use Do You Feel Safe in your Home?: Yes Lack of Transportation: No Lack of Food: Never True Current Housing: I Have Housing Concerned About Future Housing: No Difficulty Paying Gas/Electric Bills: No Difficulty Paying for Meds: No Currently Unemployed: No Education: Master's Degree or Higher Difficulty w/ Childcare or Family Care: No Living arrangements: alone Additional living arrangements comments: as of September 2020. She and her had 3 children, all whom are . Additional occupation/education comments: Retired. Spiritual care concerns: No Meds Home Medications and Allergies Home Medications ?Medication ?Instructions ?Recorded ?Confirmed ?Type bupropion HCl 150 mg tablet,12 hr 150 mg PO BID 11/19/19 04/20/24 History sustained-release cholecalciferol (vitamin D3) 50 50 mcg PO DAILY 11/19/19 04/20/24 History mcg (2,000 unit) capsule (Vitamin D3) levothyroxine 50 mcg tablet 50 mcg PO QAM 11/19/19 04/20/24 History pravastatin 80 mg tablet 80 mg PO HS 11/19/19 04/20/24 History tramadol 50 mg tablet 50 mg PO Q6H PRN pain #20 tabs 07/30/22 04/20/24 Rx apixaban 2.5 mg tablet (Eliquis) 2.5 mg PO BID 11/19/22 04/20/24 History ferrous sulfate 325 mg (65 mg 325 mg PO BID 05/09/23 04/20/24 History iron) tablet hydrocodone 5 mg-acetaminophen 325 1 - 2 tablet PO Q6H PRN pain #20 02/10/24 04/09/24 Rx mg tablet tabs bisacodyl 5 mg tablet,delayed 5 mg PO QAM PRN Constipation 04/09/24 04/20/24 History release (Laxative (bisacodyl)) sotalol 80 mg tablet 40 mg PO DAILY 04/09/24 04/20/24 History Allergies Allergy/AdvReac Type Severity Reaction Status Date / Time codeine AdvReac Mild Nausea Verified 04/20/24 06:25 Exam Const: General: no acute distress Resp: Effort & Inspection: normal respiratory effort GI: Inspection: non-distended GI Palp: No abdominal tenderness and No Guarding due to palpation present (GI) Auscultation: normal bowel sounds Assessment and Plan Assessment and plan (1) Retained ureteral stent: Code(s): Z96.0 - Presence of urogenital implants Status: Chronic Assessment and Plan: Left ESWL, cystoscopy with left ureteral stent exchange
--- NOTE | 2024-07-13 13:38 | PC.NURSE ---
Report to the Outpatient Waiting Room, entrance under the green pavilion located off [facility], at time on date . Planned Procedure Time: .? Time changes happen often and if your time is changed the preop area will call you the afternoon before. - You and your visitor will be asked to self-screen and do not enter if you have any COVID symptoms. Please call surgeon if you need to reschedule. - A mask is optional within the hospital at this time. Patients may have clear liquids (water, carbonated beverages, clear teas, apple juice) until 3 hours prior to surgery with a maximum of 20 ounces. - No food from midnight until time of surgery and no smoking, or chewing tobacco (or any form of nicotine). No chewing gum, candy or mints. - Infants may have breast milk until 4 hours before surgery, infant formula 6 hours prior to surgery. - Children will be allowed to drink immediately following surgery.? If applicable, please bring a bottle or sippy cup to assist with drinking. Juice, water, soda, and popsicles are readily available.? For infants on formula, please bring formula the day of surgery.? Pacifiers are allowed. Take only the following medications with a SIP of water on the morning of surgery: DO NOT STOP ANY OF YOUR OTHER PRESCRIPTION MEDICATIONS PRIOR TO SURGERY EXCEPT THE FOLLOWING Hold all vitamins and supplements for 3 days per anesthesiologist. Medications to discontinue per physician Date to take last dose Please no make-up, nail kittitian, hairspray, perfume, deodorant, or body powder the day of surgery.? No jewelry (including any body piercings) or valuables the day of surgery, leave them at home.? Please take a shower or bath the night before, or the morning of, surgery with an antibacterial soap.? Wear comfortable, loose fitting clothing.? Children are encouraged to wear pajamas. - Jewelry must be removed prior to entering the operating room.? Rings and piercings that are not removed may be cut off. - The hospital will not accept responsibility for valuables.? - Please leave all valuables, including medications, at home the day of surgery. If you are going home after surgery, a licensed delivery route driver must drive you home.? - NO public transportation without another adult if you receive anesthesia. - We recommend that an adult stay with you for 24 hours following discharge. - We also recommend that you do not drive, make important decision, drink alcoholic beverages, or take any drugs that were not prescribed by your health care provider for at least 24 hours after your discharge time. For Pediatric surgeries, we recommend two adults accompany the child home. Follow any additional instructions given to you from your surgeon. Telephone instructions given to and asked if any additional questions and then verbalized understanding. Patient advised to call surgeon office or pre surgery nurse liaison [phone] if any additional questions.
--- NOTE | 2024-08-13 13:10 | PC.NURSE ---
Report to the Outpatient Waiting Room, entrance under the green pavilion located off [facility], at time _7:30 am on date __08/24/24 . Planned Procedure Time: __9:30 am .? Time changes happen often and if your time is changed the preop area will call you the afternoon before. - You and your visitor will be asked to self-screen and do not enter if you have any COVID symptoms. Please call surgeon if you need to reschedule. - A mask is optional within the hospital at this time. Patients may have clear liquids (water, carbonated beverages, clear teas, apple juice) until 3 hours prior to surgery ( 6:30 am) with a maximum of 20 ounces. - No food from midnight until time of surgery and no smoking, or chewing tobacco (or any form of nicotine). No chewing gum, candy or mints. Take only the following medications with a SIP of water on the morning of surgery: ___bupropion,levothyroxine,sotalol DO NOT STOP ANY OF YOUR OTHER PRESCRIPTION MEDICATIONS PRIOR TO SURGERY EXCEPT THE FOLLOWING Hold all vitamins and supplements for 3 days per anesthesiologist. Medications to discontinue per physician ____pt states hold eliquis 5 days pre op per dr carrasco Date to take last dose___08/19/24 Please no make-up, nail latvian, hairspray, perfume, deodorant, or body powder the day of surgery.? No jewelry (including any body piercings) or valuables the day of surgery, leave them at home.? Please take a shower or bath the night before, or the morning of, surgery with an antibacterial soap.? Wear comfortable, loose fitting clothing.? Children are encouraged to wear pajamas. - Jewelry must be removed prior to entering the operating room.? Rings and piercings that are not removed may be cut off. - The hospital will not accept responsibility for valuables.? - Please leave all valuables, including medications, at home the day of surgery. If you are going home after surgery, a licensed route delivery service driver must drive you home.? - NO public transportation without another adult if you receive anesthesia. - We recommend that an adult stay with you for 24 hours following discharge. - We also recommend that you do not drive, make important decision, drink alcoholic beverages, or take any drugs that were not prescribed by your health care provider for at least 24 hours after your discharge time. Follow any additional instructions given to you from your surgeon. Telephone instructions given to ___PATIENT and asked if any additional questions and then verbalized understanding. Patient advised to call surgeon office or pre surgery nurse liaison [phone] if any additional questions.
[2024-08-13 13:34] VITALS: BMI 21.8
--- NOTE | 2024-08-14 07:07 | PM.HPGS ---
History of Present Illness History of Present Illness Consent: Risks, benefits, and alternatives have been discussed and questions answered. Patient agrees to proceed with procedure. 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 On occasion she has encrustation of the stent that requires ESW. She now presents for cystoscopy with left ureteral stent exchange. Last stent exchange was 04/20/2024. Review of Systems Review of Systems: All systems reviewed & are unremarkable except as noted in HPI and below PMFSH Past Medical History Medical History Orthostatic hypotension Retroperitoneal hematoma November 2023 Diverticulitis May 2023 Malfunction of nephrostomy tube With subsequent removal Hearing loss, bilateral Jered-tachy syndrome Pacemaker (09/04/22) Wireless pacemaker Moderate mitral regurgitation Mild pulmonary hypertension Heart failure with preserved ejection fraction EF was 60 to 65% in 07/2021. Mild aortic stenosis Chronic anemia Diastolic congestive heart failure Current use of half-way anticoagulation Mitral regurgitation mod to severe Intraoperative ureteral injury (07/2021) Endometriosis Hyperlipidemia Hypothyroidism Chronic kidney disease Stage IV Degenerative disc disease Pulmonary embolism Kidney stones Including known right staghorn calculus. Depression Cerebral aneurysm Status post coil embolization. Hemorrhoids Histoplasmosis Paroxysmal atrial fibrillation Nonspecific colitis Dyslipidemia Hypertension Surgical History Surgical History Status post cataract extraction of both eyes with insertion of intraocular lens History of cystoscopy History of colonoscopy with polypectomy Status post coil embolization of cerebral aneurysm History of lumbar surgery History of cataract extraction History of arthroplasty of right knee Complicated by DVT History of total hysterectomy with bilateral salpingo-oophorectomy (BSO) History of tonsillectomy and adenoidectomy Family History Family History Mother , in her 70s Hypertension Father Hypertension Acute myocardial infarction Social History Social History Social History: The patient lives at home alone. She was for 68 years but has been since September 2020.. She had 2 daughters 1 of which of SIDS and another dark who of sudden cardiac in her 30s. She had a son who in his 30s of liver disease. 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 She reports that she gave up her license as she is not comfortable driving anymore. Surrogate decision maker: Kerri Horner (friend) Code status: DNR/DNI (however patient reports that she would be okay with medications for blood pressure support and with noninvasive ventilator if needed. She would not want in feeding to. She wants to be pain free at the time of ) but then the patient told nursing staff that she was okay with compressions but not a lot of compressions. Nursing staff did not bother to tell the patient that compressions would be painful. Smoking packs per day: 0.25 Smoking cigarettes per day: 5.0 Years smoked: 15 Smoking pack-years: 3.75 Smoking status: Former smoker Tobacco type: cigarettes Second hand tobacco smoke exposure: No Smoking end date: 06/06/74 Alcohol intake: current Drinks per week: 1 Alcohol use details: 6 oz of wine. Substance use: never Substance use type: does not use Do You Feel Safe in your Home?: Yes Lack of Transportation: No Lack of Food: Never True Current Housing: I Have Housing Concerned About Future Housing: No Difficulty Paying Gas/Electric Bills: No Difficulty Paying for Meds: No Currently Unemployed: No Education: Master's Degree or Higher Difficulty w/ Childcare or Family Care: No Living arrangements: alone Additional living arrangements comments: She and her had 3 children, all whom are . Additional occupation/education comments: Retired. Spiritual care concerns: No Meds Home Medications and Allergies Home Medications ?Medication ?Instructions ?Recorded ?Confirmed ?Type bupropion HCl 150 mg tablet,12 hr 150 mg PO BID 11/19/19 08/13/24 History sustained-release cholecalciferol (vitamin D3) 50 50 mcg PO DAILY 11/19/19 08/13/24 History mcg (2,000 unit) capsule (Vitamin D3) levothyroxine 50 mcg tablet 50 mcg PO QAM 11/19/19 08/13/24 History pravastatin 80 mg tablet 80 mg PO HS 11/19/19 08/13/24 History apixaban 2.5 mg tablet (Eliquis) 2.5 mg PO BID 11/19/22 08/13/24 History ferrous sulfate 325 mg (65 mg 325 mg PO BID 05/09/23 08/13/24 History iron) tablet bisacodyl 5 mg tablet,delayed 5 mg PO QAM PRN Constipation 04/09/24 08/13/24 History release (Laxative (bisacodyl)) sotalol 80 mg tablet 40 mg PO BID 04/09/24 08/13/24 History cefdinir 300 mg capsule 300 mg PO Q12H 7 days #14 caps 07/12/24 08/13/24 Rx hydroxyzine HCl 10 mg tablet 10 mg PO HS itching 07/12/24 08/13/24 History tramadol 50 mg tablet 50 mg PO .Q6 hours PRN moderate 07/12/24 08/13/24 History pain (scale score 5-6) Allergies Allergy/AdvReac Type Severity Reaction Status Date / Time codeine AdvReac Mild Nausea Verified 08/13/24 13:09 Exam Const: General: no acute distress Resp: Effort & Inspection: normal respiratory effort GI: Inspection: non-distended GI Palp: No abdominal tenderness and No Guarding due to palpation present (GI) Auscultation: normal bowel sounds Assessment and Plan Assessment and plan (1) Obstruction of left ureteropelvic junction (UPJ): Code(s): N13.5 - Crossing vessel and stricture of ureter without hydronephrosis Status: Acute Assessment and Plan: Cystoscopy, left ureteral stent exchange, left ESWL
[2024-08-24] VITALS (10 sets, daily range): BP systolic 130–184; BP diastolic 68–107; PULSE 86–106; RESP 16–20; TEMP 36.6–36.9; O2SAT 97–100; BMI 21.9
--- NOTE | ~2024-08-24 | XR_ITS ---
Supine and upright views of the abdomen Clinical history: Lithotripsy, left-sided stone COMPARISON: 04/20/2024 Findings: Bowel gas pattern is nonspecific. No evidence for obstruction or free air. Left ureteral st ent in place. Left renal stones are present measuring up to 10 mm, with additional stone overlying th e proximal pigtail of the ureteral stent. Extensive staghorn calculus of the right kidney present. Os seous structures are intact. Impression: Left-sided stones, as above, with left ureteral stent present. Extensive staghorn calculus of the right kidney. Reviewed, dictated and finalized at location . Impression: Left-sided stones, as above, with left ureteral stent present. Extensive staghorn calculus of the right kidney.
--- OUTSIDE RECORDS SUMMARY | 2024-08-24 00:03 | XMS_ITS ---
Author Organization [facility] Address [address] [place] [address] Care Team Providers Care End Finder Forming Department Name Role Phone Andrés Viveros MD Primary [...]
--- OUTSIDE RECORDS SUMMARY | 2024-08-24 00:03 | XMS_ITS | Data Portability ---
Author Organization [facility], Main Office Address [address] [place] [address] Assessment No assessment recorded. Plan of Treatment Reminders Order Date Submit Date Provider Last Modified By Organization Details Last Modified Time Details Appointments None recorded. Lab lipid panel, serum 025 025 [id number] [facility], [address], [address], 5 16:09:14 CMP, serum or plasma 025 025 [id number] [facility], [address], [address], 5 16:09:14 CBC w/ auto diff 025 025 [id number] [facility], [address], [address], 5 16:09:14 TSH, serum or plasma 025 025 [facility], [address], [address], 5 16:09:13 T4, free, serum 025 025 [id number] [facility], [address], [address], 5 16:09:13 iron + TIBC + ferritin, serum 07/16 [facility], [address] [facility] [address], [place], [address], 4 16:01:59 CBC w/ auto diff [id number] [facility], [address], [address], 4 16:49:42 TSH, serum or plasma [facility], [address], [address], 4 16:01:59 T4, free, serum [facility], [address], [address], 4 16:01:59 CMP, serum or plasma [facility], [address], [address], 4 16:01:59 vitamin B12 + folate, serum or blood [id number] [facility], [address], [address], 4 16:49:43 Referral None recorded. Procedures None recorded. Surgeries None recorded. Imaging None recorded. Medication Orders None recorded. Patient TargetsNo targets recorded. Patient Instructions Encounter Date Encounter Id Patient Instructions Last Modified By Organization Details Last Modified Time 10/04/2023 [id number] Essential hypertension, paroxysmal atrial fibrillation, hypothyroidism, hyperlipidemia [...] recognize, using context, where substitutions have occurred. 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 Will check a [...] recognize, using context, where substitutions have occurred. [email or web address] Not available 12/20/2023 17:07:27 02/09/2024 [id number] Essential hypertension, paroxysmal atrial fibrillation, hypothyroidism and [...] recognize, using context, where substitutions have occurred. [email or web address] Not available 02/09/2024 17:03:21 04/12/2024 [id number] Follow-up essent ial hypertension, hypothyroidism, hyperlipidemia, renal calculi as well as chronic renal failure. All clinically stable. No interval complaints of any new problems at this time. Is otherwise doing fine. Is being followed at [facility] for further evaluation of her renal function [...] recognize, using context, where substitutions have occurred. [email or web address] Not available 04/12/2024 15:34:02 08/14/2024 [id number] Follow-up essent ial hypertension, paroxysmal atrial fibrillation, [...] Created: Andrés Viveros M.D. 08.14.2024 03:40 PM [email or web address] Not available 08/14/2024 16:40:41 Reason for Referral None Reported. Results Created Date Observation Date Name Description Value Unit Range Abnormal Flag Note LastModifiedBy Organization Detail LastModifiedTime 10/13/1910/13/2023 XR, osseo us surve y, compl ete No observ ation record ed. [address], [address], 10/14/2023 12:21:33 11/10/19 24 11/10/2023 XR, abdom en No observ ation record ed. [address], [address], 11/10/2023 15:10:13 12/02/19 24 12/02/2023 XR, abdom en No observ ation record ed. [address], [address], 12/02/2023 09:36:25 12/03/19 24 12/02/2023 CT, abdom en + pelvi s, w/o contr ast No observ ation record ed. [address], [place], [address], 12/03/2023 17:04:42 12/05/19 24 12/05/2023 XR, chest , 1 view No observ ation record ed. [address], [place], [address], 12/05/2023 06:47:20 12/05/19 24 12/05/2023 NM, lung scan, perfu michelle No observ ation record ed. [address], [place], [address], 12/05/2023 14:23:41 12/06/19 24 12/05/2023 US, echoc ardio gram No observ ation record ed. [address], [place], [address], 12/06/2023 10:13:48 02/10/20 24 02/10/2024 XR, abdom en No observ ation record ed. [address], [place], [address], 02/10/2024 07:46:04 04/20/20 24 04/20/2024 XR, abdom en No observ ation record ed. [email or web address] [id number] Not Available 2023 09:58:33 07/11/19 25 07/11/2024 XR, chest No observ ation record ed. [address], [place], [address], 07/12/2024 09:40:21 07/11/19 25 07/11/2024 CT, abdom en + pelvi s, w/o contr ast No observ ation record ed. [address], [place], [address], 07/12/2024 09:30:39 Result Notes None recorded. Problems Name Problem SNOMED Code Status Onset Date Resolution Date Notes Provider Name and Address Organization Details Recorded Time Acute bronchitis 72779621 Active 2021 Not Available 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 3 12:49:35 Acute sinusitis 57008712 Active 2021 Not Available [facility] 3 12:49:35 History of pulmonary embolus 186629892 Active 2018 Not Available [facility] 3 12:49:35 Ventricula r premature beats 53769542 Active Not Available [facility] 3 12:49:35 Transition of care 3229538096314 Active 2021 Not Available 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 3 12:49:36 Gastroesop hageal reflux disease 209376774 Active 2020 Not Available [facility] 3 12:49:36 Renal impairment 801090151 Active 2016 Not Available [facility] 3 12:49:36 Osteoarthr itis of knee 233200047 Active Not Available [facility] 3 12:49:36 Pure hyperchole sterolemia 435284151 Active Not Available [facility] 3 12:49:36 Knee pain Active Not Available [facility] 3 12:49:36 Vitamin D deficiency 22146985 Active 2021 Not Available [facility] 3 12:49:36 Osteoarthr itis 966916344 Active Not Available [facility] 3 12:49:37 Hypothyroi dism 23278375 Active Not Available [facility] 3 12:49:37 Acute urinary tract infection 847306486 Active 2021 Not Available [facility] 3 12:49:37 Hip pain 05253351 Active Not Available [facility] 3 12:49:37 Atrial fibrillati on 97983586 Active Not Available [facility] 3 12:49:37 Carpal tunnel syndrome 25009855 Active Not Available [facility] 3 12:49:37 Pulmonary embolism 21702766 Active Not Available [facility] 3 12:49:37 Essential hypertensi on 88142608 Active Not Available 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 3 12:49:38 Hyperlipid emia 31705636 Active 2022 Winifred Gay CMA null, [place] [facility] 3 16:53:48 Calculus of kidney and ureter 299879978 Active 2022 Andrés Viveros MD [address], [place], [address] , [place] [facility] 3 11:26:58 Chronic renal failure 14789731 Active 2022 Queta moya, [place] [facility] 3 16:19:01 Serum creatinine above reference range 234140271 Active 2022 Queta moya, [place] [facility] 3 11:30:38 Diverticul itis 773565707 Active 2022 Andrés Viveros MD [address], [address], [place], [address] , [facility] 3 12:09:47 Fatigue 61632480 Active 2023 Andrés Viveros MD [address], [place], [address] , [facility] 4 17:00:20 Anemia 665548645 Active 2023 Andrés Viveros MD [address], [place], [address] , [place] [facility] 17:07:12 Problem Notes None recorded. Procedures Surgical History None recorded. Imaging Results Imaging Date Name Status LastModified by Organization Details LastModified Time 10/13/2023 XR, osseous survey, complete completed [place] [address], [place], [address], 10/14/2023 12:21:33 11/10/2023 XR, abdomen completed [address], [address], 11/10/2023 15:10:13 12/02/2023 XR, abdomen completed [place] [address], [place], [address], 12/02/2023 09:36:25 12/02/2023 CT, abdomen + pelvis, w/o contrast completed [address], [address], 12/03/2023 17:04:42 12/05/2023 XR, chest, 1 view completed [address], [address], 12/05/2023 06:47:20 12/05/2023 NM, lung scan, perfusion completed [address], [address], 12/05/2023 14:23:41 12/05/2023 US, echocardiogram completed [address], [address], 12/06/2023 10:13:48 02/10/2024 XR, abdomen completed [address], [address], 02/10/2024 07:46:04 04/20/2024 XR, abdomen completed [email or web address] [address] Information n ot available 04/20/2024 09:58:33 07/11/2024 XR, chest completed [address], [place], [address], 07/12/2024 09:40:21 07/11/2024 CT, abdomen + pelvis, w/o contrast completed [place] [address] [facility] [address], [place], [address], 07/12/2024 09:30:39 Procedure Notes None recorded. Medical Equipment None Reported. Allergies Allergen ID Allergen Name Allergen Category Reaction Reaction Severity Criticality Documentation Date Start Date Code Code System Note Provider Name and Address Organization Details Recorded Time 03187 Lovenox medicatio n Not available Not available Not available 08/04/2022 84096 6 RxNorm Throm bocyt openi a Not Available [facility] 3 12:56:18 56577 heparin medicatio n Not available Not available Not available 08/04/2022 5224 RxNorm Throm bocyt openi a Not Available [facility] 3 12:56:18 80977 codeine medicatio n nausea Not available Not available 08/04/2022 2670 RxNorm Not Available [facility] 3 12:56:18 Medications Name Sig Start Date [...] MOUTH ONE HOUR PRIOR TO SCAN ON October REPEAT ONE TIME NEEDED ON ARRIVAL TO [...] Updated DateTime 4 157.48 cm 25.6 kg/m2 70486.9 3 g 61 /min 97.3 [degF] 99 % 99 % 128 mm[Hg] 82 mm[Hg] CLAUDIA Doty [facility] [place] [employer] [facility] 4 15:13:02 Date Recorded Body height Body mass index (BMI) Body weight Heart rate Body temperature Oxygen saturation Oxygen saturation in Arterial blood by Pulse oximetry Systolic blood pressure Diastolic blood pressure Provider Name and Address Organization Details Last Updated DateTime 4 157.48 cm 24.3 kg/m2 72068.7 9 g 59 /min 97 [degF] 99 % 99 % 108 mm[Hg] 62 mm[Hg] Queta Trivedi [facility] [employer] [facility] 4 16:45:00 Date Recorded Body height Body mass index (BMI) Body weight Heart rate Body temperature Oxygen saturation Oxygen saturation in Arterial blood by Pulse oximetry Systolic blood pressure Diastolic blood pressure Provider Name and Address Organization Details Last Updated DateTime 4 157.48 cm 23.8 kg/m2 27483.0 1 g 62 /min 97.5 [degF] 97 % 97 % 118 mm[Hg] 86 mm[Hg] Sho Chadwick Clifford [facility] [employer] [facility] 4 16:35:20 Date Recorded Body height Body mass index (BMI) Body weight Heart rate Body temperature Oxygen saturation Oxygen saturation in Arterial blood by Pulse oximetry Systolic blood pressure Diastolic blood pressure Provider Name and Address Organization Details Last Updated DateTime 4 157.48 cm 23.2 kg/m2 52375.2 3 g 79 /min 97 [degF] 69 % 69 % 120 mm[Hg] 86 mm[Hg] Sho Chadwick MARIClifford [facility] [employer] [facility] 4 15:11:48 Date Recorded Body height Body mass index (BMI) Body weight Heart rate Body temperature Oxygen saturation Oxygen saturation in Arterial blood by Pulse oximetry Systolic blood pressure Diastolic blood pressure Provider Name and Address Organization Details Last Updated DateTime 5 157.48 cm 23 kg/m2 52461.6 4 g 52 /min 97 [degF] 99 % 99 % 124 mm[Hg] 72 mm[Hg] Queta Trivedi [facility] [employer] [facility] 5 16:15:19 Social History Question Answer Notes LastModified by Organizat ion Details LastModified Time Are You Blind Or Do You Have Difficulty Seeing? No [id number] Information not available 08/04/2022 In The 14 Days Before Symptom Onset, Have You Had Close Contact With A Laboratory-confirme d COVID-19 While That Case Was Ill? No MIGRATION.[id number] 26 Information not available 08/04/2022 In The 14 Days Before Symptom Onset, Have You Had Close Contact With A Person Who Is Under Investigation For COVID-19 While That Person Was Ill? No MIGRATION.[id number] 26 Information not available 08/04/2022 Are You Deaf Or Do You Have Serious Difficulty Hearing? No MIGRATION.99211726 26 Information not available 08/04/2022 Have You Recently Traveled Abroad? No MIGRATION.[id number] 26 Information not available 08/04/2022 Sex: Unknown Functional Status Question Answer Note LastModified by Organizat ion Details LastModified Time Do you have difficulty walking or climbing stairs? No MIGRATION.[id number] 026 Information not available 08/04/2022 Do you have transportation difficulties? No MIGRATION.2854261 026 Information not available 08/04/2022 Are you able to walk? YESWOREST MIGRATION.9982481 026 Information not available 08/04/2022 Do you have difficulty doing errands alone? No MIGRATION.0057969 026 Information not available 08/04/2022 Are you able to care for yourself? Yes MIGRATION.3266740 026 Information not available 08/04/2022 Do you have difficulty dressing or bathing? No MIGRATION.8162331 026 Information not available 08/04/2022 Mental Status Question Answer Note LastModified by Organizat ion Details LastModified Time Do you have difficulty concentrating, remembering or making decisions? No MIGRATION.[id number] 6 Information not available 08/04/2022 Family History [...] N CHRONIC PAIN SYNDROME N HYPOTHYROIDISM Y CONSTIPATION N CAROTID BLOCKAGE N BACK / NECK PROBLEMS N HAVE YOU BEEN HOSPITALIZED OR SEEN IN [facility] IN THE PAST YEAR ? N [...] quadrivalent, PF 3 completed Andrés Viveros MD [address] [place] [address], [place] [address], [place], [address], [facility] [employer] [facility] 04/05/2023 16:20:01 Influenza, split virus, trivalent, preservative 3 completed Not Available [facility] 08/04/2022 12:56:07 SARS-COV-2 (COVID-19) vaccine, UNSPECIFIED 2 completed Not Available [facility] 08/04/2022 12:56:07 influenza, unspecified formulation 2 completed Not Available [facility] 08/04/2022 12:56:07 SARS-COV-2 (COVID-19) vaccine, UNSPECIFIED 2 completed Not Available [facility] 08/04/2022 12:56:07 Influenza, split virus, quadrivalent, preservative 1 completed Not Available [facility] 08/04/2022 12:56:07 COVID-19, mRNA, LNP-S, PF, 100 mcg/0.5mL dose or 50 mcg/0.25mL dose 1 completed Not Available [facility] 08/04/2022 12:56:07 SARS-COV-2 (COVID-19) vaccine, UNSPECIFIED 1 completed Not Available [facility] 08/04/2022 12:56:08 COVID-19, mRNA, LNP-S, PF, 30 mcg/0.3 mL dose 1 completed Not Available [facility] 08/04/2022 12:56:08 Influenza, high-dose, quadrivalent, PF 0 completed Not Available [facility] 08/04/2022 12:56:08 Influenza, high-dose, trivalent, PF 8 completed Not Available [facility] 08/04/2022 12:56:08 Influenza, high-dose, trivalent, PF 7 completed Not Available [facility] 08/04/2022 12:56:08 Pneumococcal conjugate PCV 13 5 completed Not Available [facility] 08/04/2022 12:56:09 Influenza, split virus, quadrivalent, preservative 5 completed Not Available [facility] 08/04/2022 12:56:09 Past Encounters Encounter ID Performer Location Encounter Start Date Encounter Closed Date Diagnosis/Indication Diagnosis SNOMED-CT Code Diagnosis ICD10 Code Diagnosis Note [id number] [facility] Internal Med [place] [address] [address] 09/19/2020 00:00:00 09/19/2020 15:10:48 [id number] [facility] Internal Med [place] [address] [place] [address] 10/17/2020 00:00:00 10/17/2020 11:40:53 [id number] [facility] Internal Med [place] [address] [place] [address] y , [place] [address] 02/13/2021 00:00:00 02/13/2021 15:44:15 [id number] [facility] Internal [facility] [place] [address] [place] [address] y , [place] [address] 06/09/2021 00:00:00 06/09/2021 16:59:09 [id number] [facility] Internal [facility] [place] [address] [place] [address] y , [place] [address] 08/18/2021 00:00:00 08/18/2021 15:57:20 [id number] [facility] Internal [facility] [place] [address] [place] [address] y , [place] [address] 09/01/2021 00:00:00 09/01/2021 14:33:36 [id number] [facility] Internal [facility] [place] [address] [place] [address] y , [place] [address] 10/06/2021 00:00:00 10/06/2021 12:10:21 [id number] [facility] Internal [facility] [place] [address] [place] [address] y , [place] [address] 02/09/2022 00:00:00 02/09/2022 11:59:16 [id number] [facility] Internal [facility] [place] [address] [place] [address] y , [place] [address] 06/08/2022 00:00:00 06/08/2022 12:06:16 [id number] Andrés Viveros MD [facility] Internal Med [place] [address] [place] [address] y , [place] [address] 08/06/2022 10:58:58 08/06/2022 11:36:23 Atrial fibrillation 84023876 I48.91 Pure hypercholesterolemia 083895006 E78.00 Essential hypertension 05701866 I10 Calculus o f kidney and ureter 032404721 N20.2 [id number] Andrés Viveros MD [facility] Internal Med [place] [address] [place] [address] y , [place] [address] 09/28/2022 14:26:32 09/28/2022 14:58:34 Essential hypertension 07911623 I10 Atrial fibrillation 4943 6004 I48.91 Hyperlipidemia 87184134 E78.5 Hypothyroidism 86584901 E03.9 [id number] Andrés Viveros MD [facility] Internal Med [place] [address] [place] [address] [place] [address] 11/30/2022 14:33:09 11/30/2022 15:13:35 Essential hypertension 05282797 I10 Atrial fibrillation 4943 6004 I48.91 Hyperlipidemia 42092366 E78.5 Hypothyroidism 91035074 E03.9 [id number] Andrés Viveros MD [facility] Internal Med [place] [address] [place] [address] [place] [address] 04/05/2023 15:24:54 04/05/2023 16:29:17 Administration of influenza vaccine 79566742 Z23 Atrial fibrillation 4943 6004 I48.91 Essential hypertension 31483385 I10 Hypothyroidism 26808862 E03.9 Hyperlipidemia 27859193 E78.5 Vitamin D deficiency 347 37890 E55.9 [id number] Andrés Viveros MD [facility] Internal Med [facility] [address] [address] 05/19/2023 11:06:09 05/19/2023 12:17:21 Essential hypertension 91941232 I10 Atrial fibrillation 4943 6004 I48.91 Pure hypercholesterolemia 699009386 E78.00 Diverticulitis 332046147 K57.92 Kidney stone 63828334 N2 0.0 [id number] Andrés Viveros MD [facility] Internal Med [place] [address] [place] [address] [place] [address] 10/04/2023 15:02:42 10/04/2023 15:54:43 Atrial fibrillation 70552873 I48.91 Chronic renal failure 90 698633 N18.9 Essential hypertension 45666503 I10 Hypothyroidism 77282652 E03.9 Hyperlipidemia 23999956 E78.5 [id number] Andrés Viveros MD [facility] Internal Med [place] [address] [place] [address] y , [place] [address] 12/20/2023 16:35:50 12/20/2023 17:11:28 Fatigue 91219901 R53.83 Essential hypertension 32226546 I10 Atrial fibrillation 4943 6004 I48.91 Hypothyroidism 47492471 E03.9 Hyperlipidemia 51396027 E78.5 Kidney stone 12718636 N2 0.0 Anemia 471898824 D64.9 [id number] Andrés Viveros MD [facility] Internal Med [place] [address] [place] [address] y , [place] [address] 02/09/2024 16:15:53 02/09/2024 17:08:26 Atrial fibrillation 07055877 I48.91 Essential hypertension 27986699 I10 Hypothyroidism 50490562 E03.9 Kidney stone 24384834 N2 0.0 [id number] Andrés Viveros MD [facility] Internal Med [place] [address] [place] [address] y , [place] [address] 04/12/2024 14:58:58 04/12/2024 16:01:54 Essential hypertension 15178011 I10 Hypothyroidism 96140848 E03.9 Hyperlipidemia 67174171 E78.5 Kidney stone 57703268 N2 0.0 Chronic renal failure 90 841718 N18.9 [id number] Andrés Viveros MD [facility] Primary [facility] [address] [facility] [address] [place] [address] 08/14/2024 15:45:28 08/14/2024 16:46:50 Essential hypertension 81625977 I10 Atrial fibrillation 4943 6004 I48.91 Hypothyroidism 67834848 E03.9 Pure hypercholesterolemia 918975115 E78.00 Chronic renal failure 90 033182 N18.9 Kidney stone 49009600 N2 0.0 Health Concerns Section Related Observation LastModified by Organization Detai ls LastModified Time None Recorded Concern Status LastModified by Organization Details LastModified Time None Recorded Advance Directives Directive None Recorded Payers Encounter Date Sequence Insurance Name Policy Number Policy Patel Covered Member ID Patel Member ID Guarantor Name 10/04/2023 1 [employer] (MEDICARE REPLACEMENT PPO) [id number] Nelia Peterson [id number] Nelia Peterson 12/20/2023 1 [employer] (MEDICARE REPLACEMENT PPO) [id number] Nelia Palaciosler [id number] Nelia Palaciosler 02/09/2024 1 [employer] (MEDICARE REPLACEMENT PPO) [id number] Nelia Peterson [id number] Nelia Palaciosler 04/12/2024 1 [employer] (MEDICARE REPLACEMENT PPO) [id number] Nelia Peterson [id number] Nelia Peterson 08/14/2024 1 [employer] (MEDICARE REPLACEMENT PPO) [id number] Nelia Peterson [id number] Nelia Peterson Notes Date Note Type Note [...] Systemic Symptoms:none Medication Reconciliation: from medication list. [id number]: CT cervical spine from demonstrates severe cervical [...] Sotalol Hydrochloride. Rate control: controlled ventricular response [id number] Criteria: hypertension, Age > 75 and and considered moderate risk for embolic phenomenon. Anticoagulation: Eliquis #4. Hx of hypothyroidism currently stable. Heat intolerance: no Fatigue: no Weight gain: no Difficulty concentrating: no Muscle Symptoms: none Skin Texture: normal Skin Color: normal Currently taking synthroid. #5. History of chronic renal failure currently doing well. Currently is followed by a coding auditor. Stage: CKD-3b. Albumin Stage: A1. 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 Mktddawotjq71-91-4097: CT cervical spine from demonstrates severe cervical [...] > 75 and and considered moderate risk [id number] Criteria: Eliquis for embolic phenomenon. 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 Btjwcltjicl94-14-7142: CT cervical spine from demonstrates severe cervical [...] Sotalol Hydrochloride. Rate control: controlled ventricular response [id number] Criteria: Age > 75 for embolic phenomenon. 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 Rydadzmmshg25-07-7856: CT cervical spine from demonstrates severe cervical [...] doing well. Currently is followed by a coding auditor. Stage: CKD-3b. Albumin Stage: A1. 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 Ryb9342-56 Left Knee Oygdknazkac9625-46 Lumbar Jempaudnmjf5292-62 Qwzhrssfpcl9829-54 [facility] Preventative Testing( ) 04/14/2023 Albumin 4.0 G/DL N( ) 07/21/2021 Upper Endoscopy( ) 03/21/2020 Mammogram( ) 11/22/2019 Colonoscopy (5 Years) 11/21/2024 Social HistoryMarriedDoes not smokeDrinks sociallyRetired teacher physically impaired Family HistoryMother 74 from ASHD and HTNFather 76 from ASHD and HTNNo brothers or sisters Andrés Viveros MD [address] [facility], [facility] [address], [place], [address], [facility] [employer] 04/12/2024 15:34:16 5 text/html Patient Name: Nelia [...] Systemic Symptoms:none Medication Reconciliation: from medication list. Ougiixbtpak01-52-8316: CT cervical spine from demonstrates severe cervical [...] Sotalol Hydrochloride. Rate control: controlled ventricular response [id number] Criteria: hypertension, Age > 75 and and [...] doing well. Currently is followed by a coding auditor. Stage: CKD-3b. Albumin Stage: A1. 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 Ozn8120-26 Left Knee Mlszxuachxw3006-64 Lumbar Hekkgjdbaev9126-96 Yihbvmlfsrz0466-00 [facility] Preventative Testing( ) 07/30/2024 Optometry( ) 04/14/2023 Albumin 4.0 G/DL N( ) 07/21/2021 Upper Endoscopy( ) 03/21/2020 Mammogram( ) 11/22/2019 Colonoscopy (5 Years) 11/21/2024 Social HistoryMarriedDoes not smokeDrinks sociallyRetired teacher physically impaired Family HistoryMother 74 from ASHD and HTNFather 76 from ASHD and HTNNo brothers or sisters Andrés Viveros MD [address] [facility], [facility] [address], [place], [address], [place] [facility] [place] [employer] [facility] 08/14/2024 16:41:06 OBGyn Episode No OBEpisode recorded.
--- OUTSIDE RECORDS SUMMARY | 2024-08-24 00:03 | XMS_ITS | Referral Summary ---
Author Organization [facility] Address [address] [place] [address] Care Team Providers Care Skiing Teacher Name Role Phone Andrés Viveros MD Primary Care Provider Encounters Date Type Department Care Team Description 08/02/2024 Telephone [facility] Cardiology [address] [place] [address] Zachary Kumar MD from Last 3 [...] Pacemaker. Dx; Jered/Tachy, PAF. DOI 09/20/2022-Fleissner. [place]. [facility] remote monitoring. Nonrheumatic mitral valve regurgitation 05/21/20 [...] on file Legal Sex Female 6:09 AM SAP TRAINER Gender Identity Not on file Sexual Orientation Not on file Last Filed Vital Signs Vital Sign Reading Time Taken Comments Blood Pressure 175/133 05/08/2024 1:42 PM SAP TRAINER Pulse 68 05/08/2024 1:42 PM SAP TRAINER Temperature 36.5 C (97.7 F) 02/28/2020 11:31 AM CDT Respiratory Rate 18 01/11/2023 10:38 AM CDT Oxygen Saturation 99% 05/08/2024 1:42 PM SAP TRAINER Inhaled Oxygen Concentration - - Weight 59 kg (130 lb) 05/08/2024 1:42 PM SAP TRAINER Height 162.6 cm (5' 4 ) 05/08/2024 1:42 PM SAP TRAINER Body Mass Index 22.31 05/08/2024 1:42 PM SAP TRAINER Plan of Treatment Not on file Medical Devices Implanted Type Area Auto Hiker Device Identifier Shelf Expiration Date Model / Serial / Lot [employer] [id number] Device Closure Angio-Seal Vip Bondek-Plus Polyglyd L70 Cm Od6 Fr Odsec.035 In Vascular - [id number] Implanted:Qty: 1 on 02/28/2020 at [facility] [facility] 10/03/2020 [id number] / / [id number] Insurance [facility] MEDICARE AETNA MEDICARE AETNA MEDICARE Advance Directives For more information, please contact: [phone] * Full Code (Latest Code Status on File) Date Activated Date Inactivated Comments 02/28/2020 11:26 AM 02/28/2020 5:54 PM Care Teams Skiing Teacher Relationship Specialty Start Date End Date Andrés Viveros MD PCP - General 03/17/17
--- OUTSIDE RECORDS SUMMARY | 2024-08-24 00:03 | XMS_ITS | Clinical Summary ---
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 02/28/2020 Right INSERT / [...] on file Legal Sex Female 6:09 AM TEAM AUTOMOBILE ASSEMBLER Gender Identity Not on file Sexual Orientation Not on file Obstetrics History Last Filed Vital Signs Vital Sign Reading Time Taken Comments Blood Pressure 175/133 05/08/2024 1:42 PM TEAM AUTOMOBILE ASSEMBLER Pulse 68 05/08/2024 1:42 PM TEAM AUTOMOBILE ASSEMBLER Temperature 36.5 C (97.7 F) 02/28/2020 11:31 AM CDT Respiratory Rate 18 01/11/2023 10:38 AM CDT Oxygen Saturation 99% 05/08/2024 1:42 PM TEAM AUTOMOBILE ASSEMBLER Inhaled Oxygen Concentration - - Weight 59 kg (130 lb) 05/08/2024 1:42 PM TEAM AUTOMOBILE ASSEMBLER Height 162.6 cm (5' 4 ) 05/08/2024 1:42 PM TEAM AUTOMOBILE ASSEMBLER Body Mass Index 22.31 05/08/2024 1:42 PM TEAM AUTOMOBILE ASSEMBLER Plan of Treatment Health Maintenance Due Date [...] history exists Medical Devices Implanted Type Area Ore Storage Drier Device Identifier Shelf Expiration Date Model / Serial / Lot Scheduling Employee Scheduling Software [id number] Device Closure Angio-Seal Vip Bondek-Plus Polyglyd L70 Cm Od6 Fr Odsec.035 In Vascular - [id number] Implanted:Qty: 1 on 02/28/2020 at [facility] 10/03/2020 [id number] / / [id number] Insurance AET MEDICARE AETNA MEDICARE Advance Directives For more information, please contact: [phone] * Full Code (Latest Code Status on File) Date Activated Date Inactivated Comments 02/28/2020 11:26 AM 02/28/2020 5:54 PM Care Teams Sanitation Associate Relationship Specialty Start Date End Date Andrés Viveros MD PCP - General 03/17/17
--- OUTSIDE RECORDS SUMMARY | 2024-08-24 00:03 | XMS_ITS | Clinical Summary ---
Author Organization [facility] Address [address] [place] [address] Care Team Providers Care Bore Miner Operator Name Role Phone Chris Styles Primary Care Provider Peggy e Source Comments [facility],non-owned Affiliates and Associated Physician Practices is amultiple site organization consisting of ambulatory clinics and hospital sitesin [place], [place] and [place]. This disclosure is being madepursuant to the Care Everywhere program and may not contain all information available regarding this patient. Last updated 18.[facility] [employer] Social History Tobacco Use Types Packs/Day Years [...] age to complete this topic Care Teams Bore Miner Operator Relationship Specialty Start Date End Date Chris Styles Update Information PCP - General 11/27/19
--- OUTSIDE RECORDS SUMMARY | 2024-08-24 00:03 | XMS_ITS | CONTINUITY OF CARE DOCUMENT ---
Author Name benson knowles Address Unknown Organization [facility] Address [address] [place] [address] [address] [place] [address] Phone [phone] Care Team Providers Care Grab Hooker Name Role Phone Yakov REES, Graciela Unavailable INSURANCE PROVIDERS Payer name Policy type / Coverage type [place] red constitution party ID [employer] OPEN ACCESS Other [id number] [place] MED[place] Medicare [id number]
--- OUTSIDE RECORDS SUMMARY | 2024-08-24 00:04 | XMS_ITS | Encounter Summary ---
Author Organization [facility] Address [address] [facility] [place] [address] Care Team Providers Care Bilingual Kindergarten Teacher Name Role Phone Chris Styles Primary Care Provider Peggy e Encounter Details Date Type Department Care Team (Late st Contact Info) Description 01/29/[address] [facility] DermPath Lab [address] [place] [address] Jordan Lewis MD [address] [place] [address] Social History Tobacco Use Types [...] AM CDT) Case Report Dermatopathology Report Case: [id number] Authorizing Provider: Jordan Lewis MD Collected: 01/28/2021 12:00 AM Ordering Location: [facility] DermPath Lab Received: 01/29/2021 10:59 AM Pathologist: [...] characteristic determined by the Dermatopathology Laboratory at [facility], directed by Dr. Freya Harris. These tests need not be, and therefore are not, approved by the [place] Food and Drug Administration. The tests are used for clinical purposes. Billing Codes Specimen Charges Stain Charges 21194 40824 1 1 1 2:55 PM CDT DERMATOPATHOLOGY LABORATORY Embedded Images 2:55 PM CDT DERMATOPATHOLOGY LABORATORY Pathology/Cytology TISSUE SPECIMEN FROM SKIN / Unknown 01/28/2021 01/29/2021 10:59 AM CDT Miscellaneous samples (specimen) TISSUE SPECIMEN FROM SKIN / Unknown 01/28/2021 01/29/2021 10:59 AM CDT Jordan Lewis MD LAB - PATHOLOGY/CYTO LOGY ORDERABLES DERMATOPATHOLOGY LABORATORY [facility] - Department of Dermatology [facility] Specialized Medicine [address] [place] [address], [address] [phone] documented in this encounter Visit Diagnoses Not on filedocumented in this encounter Care Teams Bilingual Kindergarten Teacher Relationship Specialty Start Date End Date Chris Styles Update Information PCP - General 11/27/19 documented as of this encounter
--- OUTSIDE RECORDS SUMMARY | 2024-08-24 00:04 | XMS_ITS | Encounter Summary ---
Author Organization [facility] Health Address [address] [facility] [place] [address] Care Team Providers Care Bit Welder Name Role Phone Chris Styles Primary Care Provider Unavailannika e Encounter Details Date Type Department Care Team (Late st Contact Info) Description 09/30/2021 Lab Requisition [facility] DermPath Lab [address] [place] [address] Jordan Lewis MD [address] [place] [address] Social History Tobacco Use Types [...] AM CDT) Case Report Dermatopathology Report Case: [id number] Authorizing Provider: Jordan Lewis MD Collected: 09/29/2021 12:00 AM Ordering Location: [facility] DermPath Lab Received: 09/30/2021 02:16 PM Pathologist: [...] specimen consists of a shave biopsy measuring 0t4i2hk. The specimen is inked and bisected. Jar [...] characteristic determined by the Dermatopathology Laboratory at [facility], directed by Dr. Freya Harris. These tests need not be, and therefore are not, approved by the [place] Food and Drug Administration. The tests are used for clinical purposes. Billing Codes Specimen Charges Stain Charges 97141 1 2 1:36 PM CDT DERMATOPATHOLOGY LABORATORY Embedded Images 1:36 PM CDT DERMATOPATHOLOGY LABORATORY Pathology/Cytolog y TISSUE SPECIMEN FROM SKIN / Unknown 09/29/2021 09/30/2021 2:16 PM CDT Jordan Lewis MD LAB - PATHOLOGY/CYTO LOGY ORDERABLES DERMATOPATHOLOGY LABORATORY [facility] - Department of Dermatology [address], [address] [phone] documented in this encounter Visit Diagnoses Not on filedocumented in this encounter Care Teams Bit Welder Relationship Specialty Start Date End Date Chris Styles Update Information PCP - General 11/27/19 documented as of this encounter
--- OUTSIDE RECORDS SUMMARY | 2024-08-24 00:05 | XMS_ITS | Continuity of Care Document ---
Author Organization [facility] Address [address] [facility] [address] [facility] [address] [place] [address] Phone Care Team Providers Care Local Operator Name Role Phone Doisy, Edward Unavailable Unavailable Procedures Procedure Date Office/outpatient Visit, Est Visual Functional Status Assessed Advance Directives Directive Yes / No Effective Date File Name No Information Encounters Encounter Description Practice Location Reason(s) For Visit Diagnoses Date Provider Providers Copied on Encounter Office/outpat ient Visit, Est [facility], [address], [place], [place], [address], [place] tel:[phone] [facility] No Information 8-200 7 Doisy Edward. [address] , [address], [place], [address], [place]. tel:[phone] Referring Provider: Melanie Parra OD, [address] [facility], [place], [address]. tel:[phone] Family History Family Member Type Diagnosis Age At Onset No Information Payers Payer name Insurance type Covered alliance party ID Authoriza tion(s) [place] [id number] Social History Type Description Quantity Date Captured [...]
--- OUTSIDE RECORDS SUMMARY | 2024-08-24 00:05 | XMS_ITS | Clinical Summary ---
Author Organization [facility] Sarah Reeseemma Address [address] [place] [address] Care Team Providers Care French Instructor Name Role Phone Andrés Viveros MD Primary Care Provider [phone] Allergies No known active allergies Medications ferrous [...] exists Insurance AETNA PPO MCR Care Teams French Instructor Relationship Specialty Start Date End Date Andrés Viveros MD [address] [place] [id number] PCP - General Internal Medicine 08/30/23
--- NOTE | 2024-08-24 06:18 | WPDHPUPDATE1 ---
History and Physical Update Update Date/Time: 08/24/24 06:18 History and Physical has been reviewed, including an updated exam of the patient. There are NO changes in the patient's condition. Risks, benefits, and alternatives have been discussed and questions answered. Patient agrees to proceed with procedure.
--- NOTE | 2024-08-24 08:12 | WPDANESEPPF ---
Anes - Initial Pre Proc Eval Procedure: Operation Date: 08/24/24 09:30 Proposed Procedures p Left Extracorporeal Shock Wave Lithotripsy - Nabil Shaikh MD s Cystoscopy Left Ureteral Encrusted Stent Exchange - Nabil Shaikh MD Date/Time: 08/24/24 08:12 Surgeon: Nabil Shaikh MD Pre Op Diagnosis: Left UPJ Obstruction, Encrusted Lt Stent Patient Data Age: 89 Gender: F Height: 1.63 m Weight: 57.65 kg Allergies Allergy/AdvReac Type Severity Reaction Status Date / Time codeine AdvReac Mild Nausea Verified 08/13/24 13:09 Home Medications ?Medication ?Instructions ?Recorded ?Confirmed ?Type bupropion HCl 150 mg tablet,12 hr 150 mg PO BID 11/19/19 08/13/24 History sustained-release cholecalciferol (vitamin D3) 50 50 mcg PO DAILY 11/19/19 08/13/24 History mcg (2,000 unit) capsule (Vitamin D3) levothyroxine 50 mcg tablet 50 mcg PO QAM 11/19/19 08/13/24 History pravastatin 80 mg tablet 80 mg PO HS 11/19/19 08/13/24 History apixaban 2.5 mg tablet (Eliquis) 2.5 mg PO BID 11/19/22 08/13/24 History ferrous sulfate 325 mg (65 mg 325 mg PO BID 05/09/23 08/13/24 History iron) tablet bisacodyl 5 mg tablet,delayed 5 mg PO QAM PRN Constipation 04/09/24 08/13/24 History release (Laxative (bisacodyl)) sotalol 80 mg tablet 40 mg PO BID 04/09/24 08/13/24 History cefdinir 300 mg capsule 300 mg PO Q12H 7 days #14 caps 07/12/24 08/13/24 Rx hydroxyzine HCl 10 mg tablet 10 mg PO HS itching 07/12/24 08/13/24 History tramadol 50 mg tablet 50 mg PO .Q6 hours PRN moderate 07/12/24 08/13/24 History pain (scale score 5-6) Patient hx anesthesia problems: none Family hx anesthesia problems: none Results Review: All pre-operative results and documents have been reviewed as part of the pre-operative evaluation. [facility] Past Medical History Medical History Orthostatic hypotension Retroperitoneal hematoma November 2023 Diverticulitis May 2023 Malfunction of nephrostomy tube With subsequent removal Hearing loss, bilateral Jered-tachy syndrome Pacemaker (09/04/22) Wireless pacemaker Moderate mitral regurgitation Mild pulmonary hypertension Heart failure with preserved ejection fraction EF was 60 to 65% in 07/2021. Mild aortic stenosis Chronic anemia Diastolic congestive heart failure Current use of buttermaker continuous churn anticoagulation Mitral regurgitation mod to severe Intraoperative ureteral injury (07/2021) Endometriosis Hyperlipidemia Hypothyroidism Chronic kidney disease Stage IV Degenerative disc disease Pulmonary embolism Kidney stones Including known right staghorn calculus. Depression Cerebral aneurysm Status post coil embolization. Hemorrhoids Histoplasmosis Paroxysmal atrial fibrillation Nonspecific colitis Dyslipidemia Hypertension Surgical History Surgical History Status post cataract extraction of both eyes with insertion of intraocular lens History of cystoscopy History of colonoscopy with polypectomy Status post coil embolization of cerebral aneurysm History of lumbar surgery History of cataract extraction History of arthroplasty of right knee Complicated by DVT History of total hysterectomy with bilateral salpingo-oophorectomy (BSO) History of tonsillectomy and adenoidectomy Family History Family History Mother , in her 70s Hypertension Father Hypertension Acute myocardial infarction Social History Social History Social History: The patient lives at home alone. She was for 68 years but has been since September 2020.. She had 2 daughters 1 of which of SIDS and another dark who of sudden cardiac in her 30s. She had a son who in his 30s of liver disease. 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 She reports that she gave up her license as she is not comfortable driving anymore. Surrogate decision maker: Kerri Horner (friend) Code status: DNR/DNI (however patient reports that she would be okay with medications for blood pressure support and with noninvasive ventilator if needed. She would not want in feeding to. She wants to be pain free at the time of ) but then the patient told nursing staff that she was okay with compressions but not a lot of compressions. Nursing staff did not bother to tell the patient that compressions would be painful. Smoking packs per day: 0.25 Smoking cigarettes per day: 5.0 Years smoked: 15 Smoking pack-years: 3.75 Smoking status: Former smoker Tobacco type: cigarettes Second hand tobacco smoke exposure: No Smoking end date: 06/06/74 Alcohol intake: current Drinks per week: 1 Alcohol use details: 6 oz of wine. Substance use: never Substance use type: does not use Do You Feel Safe in your Home?: Yes Lack of Transportation: No Lack of Food: Never True Current Housing: I Have Housing Concerned About Future Housing: No Difficulty Paying Gas/Electric Bills: No Difficulty Paying for Meds: No Currently Unemployed: No Education: Master's Degree or Higher Difficulty w/ Childcare or Family Care: No Living arrangements: alone Additional living arrangements comments: She and her had 3 children, all whom are . Additional occupation/education comments: Retired. Spiritual care concerns: No Anes - Eval Final PreProcedure Day of Procedure 08/24/24 08:12 Patient weight: normal Heart: regular rate and rhythm Lungs: clear to auscultation Airway: Mallampati scale class II Neurological: alert and oriented Last oral intake: >/= 8 hours ASA classification: IV Emergent: no Anesthetic plan: proceed Anesthesia type and monitoring: general LMA and standard monitoring Results Review: All pre-operative results and documents have been reviewed as part of the pre-operative evaluation. Informed Consent: The patient's anesthetic plan and its attendant risks and benefits were discussed with the patient/family/POA. Questions were solicited and answers provided to the satisfaction of the patient/family/POA.
[2024-08-24] MEDS: LACTATED RINGERS 1,000 ML 30 ML IV CONT (08:40)
[2024-08-24 09:12] LABS: Prothrombin Time 13.6 Seconds (11.1-14.7)
[2024-08-24] MEDS: ceFAZolin 2 GM/D5W 50 ML 2 GM/50 ML BAG IVPB (09:17)
--- NOTE | 2024-08-24 09:54 | W.PM.PROC2 ---
Procedure Note - Detailed Date of Procedure 08/24/24 Pre-op Diagnosis Left UPJ Obstruction, Encrusted Lt Stent Post-op Diagnosis Same Procedure Performed Cystoscopy, left ESWL, left retrograde pyelogram and left ureteral stent replacement Surgeon Nabil Shaikh MD Anesthesia General Description of Procedure This patient brought to the operative suite she was prepped draped in routine sterile fashion while in a frog-leg position. After the uneventful induction a general anesthetic we delivered 600 shocks with the [employer] Lithotripter at a power setting of 3. I was then able to remove her encrusted left ureteral stent. A retrograde pyelogram was obtained to ensure appropriate placement of a new 4.8F variable length stent with the proximal coil in the mid pole calyx and distal coil in the bladder. Drains Yes Packing No Pathology None sent Complications No immediate complications Condition Stable
[2024-08-24] MEDS: fentaNYL CITRATE INJ (*CRX) 100 MCG/2 ML VIAL 25 MCG IV PUSH ×4 (10:18→10:39)
[2024-08-24] MEDS: ONDANSETRON INJ 4 MG/2 ML VIAL IV PUSH (10:22)
--- NOTE | 2024-08-24 10:28 | SUR.PHASEI ---
1010 - pt's pacemaker interrogated. information sent electronically
--- NOTE | 2024-08-24 10:34 | SUR.PHASEI ---
1030 - [employer] rep called and stated that all looked well in regards to pacemaker interrogation
[2024-08-24] MEDS: LABETALOL HCL INJ 100 MG/20 ML VIAL 10 MG IV PUSH (10:56)
== END 2024-08-24 12:15 | disposition home or self-care (01) ==
PROVIDERS: PCP Internal Medicine; Visit Provider Urology
PROC: (CPT 50590; principal; 2024-08-24 09:30)
PROC: (CPT 52352; 2024-08-24 09:30)
DX: N13.5 Crossing vessel and stricture of ureter without hydronephrosis (principal); I13.0 Hypertensive heart and chronic kidney disease with heart failure and stage 1 through stage 4 chronic kidney disease, or unspecified chronic kidney disease; N18.4 Chronic kidney disease, stage 4 (severe); I50.30 Unspecified diastolic (congestive) heart failure; I48.0 Paroxysmal atrial fibrillation; Z79.01 Long term (current) use of anticoagulants; Z95.0 Presence of cardiac pacemaker; Z87.891 Personal history of nicotine dependence
CPT/HCPCS: 50590; 52332; 36415; 74018; 85610; 85730; C1758; C1769; C2617; J0690; J2003; J2405; J2704; J3010; J7120; Q9966